=== PATIENT | female | born 1990 | race Two or more races ===

== ENCOUNTER 2024-11-09 23:26 | Emergency (ER) | payer MEDICAID, SELFPAY ==
--- NOTE | 2024-11-09 00:12 | DI.RAD_ITS ---
Exam(s) XR RIBS RT W PA LAT CHEST CLINICAL HISTORY: right rib pain after cough. COMPARISON: No exams were available for comparison TECHNIQUE:: PA and lateral views of the chest and four views of the right ribs were performed. FINDINGS: LUNGS:Clear. No pleural abnormality seen. HEART: Normal. MEDIASTINUM: Normal. BONES: No displaced rib fracture is seen. No bony destructive lesion is seen. OTHER FINDINGS: None. IMPRESSION: 1. Unremarkable radiographic appearance of the right ribs. 2. No acute pulmonary findings.
[2024-11-09 23:30] VITALS: BP 108/65; PULSE 97; RESP 18; TEMP 36.5; O2SAT 97
--- NOTE | 2024-11-09 23:48 | ED.GENADUL_ITS ---
Discharge Plan Disposition Patient Disposition: Home Condition: Good Discharge Details Clinical Impression: Rib pain on right side Primary Care Provider: Anabel Kim ED Provider: Yordy Aldana Home Meds and New Rx's Prescriptions: New benzonatate 100 mg capsule 100 mg PO TID Qty: 30 0RF No Action CELEXA 20 MG tablet 20 mg PO DAILY Qty: 30 ALBUTEROL SULFATE HFA 8.5 GM HFA.AER.AD 2 puff Inhalation Q6H PRN cyclobenzaprine (bulk) 5 GM crystals 10 gm Miscellaneous Q4H PRN Qty: 25 divalproex [Depakote ER] 250 MG tablet extended release 24 hr 250 mg PO DAILY Qty: 30 Discharge Instructions Instructions: Pleuritic Chest Pain ED Additional Instructions: At this time your chest x-ray shows no evidence of pneumonia, fractured rib or popped lung or tumor. I suspect there may be very small crack in the rib or a sprained muscle that is causing the pain. Please continue to use the Lidoderm patches, the Tylenol and Motrin as you have been. Please take the Tessalon Perles as prescribed to help with the cough. Is been sent to your pharmacy on file. You may use a rib binder to help with the pain as needed. As we discussed together an alternative option is a rib block to help with the pain. If this is something you are interested in, you may return for reevaluation and further discussion with anesthesia during the day. If you notice any worsening of your symptoms, or any new symptoms such as vomiting, diarrhea, fever, chills, shortness of breath, chest pain, numbness, weakness, or fainting , please return immediately to the emergency department for reevaluation. Please follow up with your primary care provider as soon as possible for reassessment and reevaluation. As always, it was a pleasure participating in your medical care today. Referrals: Anabel Kim MD [Primary Care Provider] - [facility] General Date/Time Provider Initiated Documentation: 11/09/24 23:28 . HPI Narrative: This is a 33-year-old female with a past medical history of endometriosis, occasional marijuana use, who presents today for right sided rib pain. Patient states that about 6 weeks ago she developed a cough runny nose and congestion, she was eventually diagnosed with bilateral otitis media and started on amoxicillin. She completed this course and then she transition to a sinus infection and was prescribed doxycycline and prednisone. She has also intermittently been taking Tessalon Perles. She states that her cough has persisted throughout this, and then yesterday while coughing she developed right sided rib pain present with coughing palpation and movement. She is comfortable at rest. This pain improves when she places something warm on her right lateral ribs. She did take Flexeril, Tylenol, Motrin, home oxycodone, and Lidoderm patches without significant improvement. She denies any hemoptysis, fever, chills, control, long trips surgeries or procedures. No other complaints at this time. Related Data Home Medications ?Medication ?Instructions ?Recorded ?Confirmed Celexa 20 mg PO DAILY ##30 07/18/12 11/09/24 Albuterol Sulfate Hfa 2 puff inhalation Q6H PRN 04/08/13 11/09/24 cyclobenzaprine (bulk) 10 gm miscellaneous Q4H PRN #25 04/22/13 11/09/24 tabs divalproex 250 mg tablet,extended 250 mg PO DAILY #30 tabs 05/20/13 11/09/24 release 24 hr (Depakote ER) benzonatate 100 mg capsule 100 mg PO TID #30 caps 11/10/24 Previous Rx's ?Medication ?Instructions ?Recorded benzonatate 100 mg capsule 100 mg PO TID #30 caps 11/10/24 Allergies Allergy/AdvReac Type Severity Reaction Status Date / Time sumatriptan (From Imitrex) Allergy Severe UNABLE TO Verified 11/09/24 23:36 BREATH, THROAT CLOSES UP sumatriptan succinate (From Allergy Severe UNABLE TO Verified 11/09/24 23:36 Imitrex) BREATH, THROAT CLOSES UP General Stated Complaint: Chest/Rib KIRTI: 4 Exam Narrative Exam Narrative: 1.Const: Well-nourished, Well-developed, appearing stated age 2.Eyes: PERRL, no conjunctival injection, and symmetrical lids. 3.ENT: Atraumatic external nose and ears. Moist MM. Neck: Symmetric, trachea midline, No thyromegaly. 4.CVS: +S1/S2, Peripheral pulses 2+ and equal in all extremities. Brisk capillary refill in all extremities. 5.RESP: Unlabored respiratory effort. Clear to auscultation bilaterally. No wheezes rales or rhonchi. Mild rib tenderness on the right upper ribs around rib 6 specifically. No subcutaneous crepitus, paradoxical movements, or bruising. No rash. 6.GI: Soft, Nontender/Nondistended, No hepatosplenomegaly. No guarding or rebound. 7.MSK: Normocephalic/Atraumatic, Extremities w/o deformity or ttp No cyanosis or clubbing, Normal movement of all extremities 8.Skin: Warm, Dry. No rashes or lesions. 9.Neuro: business development director II-XII grossly intact. Sensation grossly intact, no focal neurologic deficits. 10.Psych: (AAO) x3. Appropriate mood and affect Course Vital Signs Vital signs: Vital Signs Temperature 36.5 C 11/09/24 23:30 Pulse 97 H 11/09/24 23:30 Respiratory Rate 18 11/09/24 23:30 Blood Pressure 108/65 11/09/24 23:30 Pulse Oximetry 97 11/09/24 23:30 Temperature 36.5 C 11/09/24 23:30 Temperature Source Tympanic 11/09/24 23:30 Pulse 97 H 11/09/24 23:30 Respiratory Rate 18 11/09/24 23:30 Respiratory Effort Normal 11/09/24 23:38 Respiratory Depth Normal 11/09/24 23:38 Respiratory Pattern Normal 11/09/24 23:38 Blood Pressure 108/65 11/09/24 23:30 Pulse Oximetry 97 11/09/24 23:30 Pain Level 0 11/09/24 23:38 Medical Decision Making This is a 33-year-old female with a past medical history of endometriosis, occasional marijuana use, who presents today for right sided rib pain. Patient states that about 6 weeks ago she developed a cough runny nose and congestion, she was eventually diagnosed with bilateral otitis media and started on amoxicillin. She completed this course and then she transition to a sinus infection and was prescribed doxycycline and prednisone. She has also intermittently been taking Tessalon Perles. She states that her cough has persisted throughout this, and then yesterday while coughing she developed right sided rib pain present with coughing palpation and movement. She is comfortable at rest. This pain improves when she places something warm on her right lateral ribs. She did take Flexeril, Tylenol, Motrin, home oxycodone, and Lidoderm patches without significant improvement. She denies any hemoptysis, fever, chills, control, long trips surgeries or procedures. No other complaints at this time. Physical exam demonstrates Unlabored respiratory effort. Clear to auscultation bilaterally. No wheezes rales or rhonchi. Mild rib tenderness on the right upper ribs around rib 6 specifically. No subcutaneous crepitus, paradoxical movements, or bruising. No rash. Concern for intercostal muscle tear, less likely rib fracture, less likely pneumothorax. Symptoms appear inconsistent with pulmonary embolism with no tachycardia, hemoptysis, or control or concerning red flags. Will monitor closely get a chest x-ray/rib series and reassess. Symptoms inconsistent with ACS. 1:59 AM X-ray results negative for acute fracture pneumothorax or tumor. Patient does have improvement. Will send a prescription for Tessalon Perles for home. She was given Tessalon Perles here as well. Discussed with the patient options of potential anesthesia rib block during normal business hours, and she understands. If her pain persists or is severe she will return for further discussion of that. Otherwise patient demonstrates notable hemodynamic stability, no hypoxemia or tachypnea or hemoptysis or red flags to suggest PE. No evidence of dissection or ACS clinically. Patient will be discharged home. Discussed red flags for which to return. Recommend continued NSAID therapy, Lidoderm patches, rib binder and heat as needed. I have extensively reviewed the treatment plan and discharge instructions with the patient and their family. I have addressed all patient concerns at this time. The patient and family was made aware of what symptoms to monitor for that would warrant a return to the emergency department. Discussed the plan with the patient and family, they demonstrate verbal understanding and agreement with our assessment and plan at this time. The documentation in this chart was dictated using [employer] dictation software. Please excuse any dictation errors. FINDINGS: Bones/joints: No acute fracture. Lungs: No alveolar infiltrate. Pleural space: No pleural fluid collection. No pneumothorax. Heart/Mediastinum: Normal heart size. Soft tissues: Normal. IMPRESSION: 1. No acute fracture. 2. No pneumothorax or pleural fluid collection. Quality:SDOH Health Related Social Needs: No Data to Display PFSH All Active Problems (Updated 11/10/24 @ 01:56 by Yordy Aldana DO) Rib pain on right side (Acute) Social History Smoking/Tobacco Use Status: Never Smoking risk assessment performed?: Yes Alcohol Intake: current Alcohol Intake frequency: 0-2 drinks per day Drug use: Daily Substance use type: marijuana Housing: house Do you feel safe at home: Yes Do you feel safe in your relationship?: Yes
[2024-11-10] MEDS: Ketorolac 30 MG/ML VIAL IM (00:52)
[2024-11-10] MEDS: Lidocaine 5% Patch 2 PATCH TP (00:52)
[2024-11-10] MEDS: Benzonatate 100 MG CAP PO (00:52)
--- NOTE | 2024-11-10 01:34 | DI.VRAD_ITS ---
PROCEDURE INFORMATION: Exam: XR Right Ribs Exam date and time: 11/10/2024 12:00 AM Age: 33 years old Clinical indication: Right rib pain after cough TECHNIQUE: Imaging protocol: Radiologic exam of the right ribs. Views: 2 views. COMPARISON: No relevant prior studies available. FINDINGS: Bones/joints: No acute fracture. Lungs: No alveolar infiltrate. Pleural space: No pleural fluid collection. No pneumothorax. Heart/Mediastinum: Normal heart size. Soft tissues: Normal. IMPRESSION: 1. No acute fracture. 2. No pneumothorax or pleural fluid collection. PROCEDURE INFORMATION: Exam: XR Chest Exam date and time: 11/10/2024 12:00 AM Age: 33 years old Clinical indication: Right rib pain after cough TECHNIQUE: Imaging protocol: Radiologic exam of the chest. Views: 2 views. COMPARISON: No relevant prior studies available. FINDINGS: Lungs: No alveolar infiltrate. Pleural spaces: No pleural fluid collection. No pneumothorax. Heart/Mediastinum: Normal heart size. Bones/joints: Unremarkable for patient age. IMPRESSION: No active pulmonary disease. Dictated and Authenticated by: Ben Riddle MD. Ordering:CHERELLE Scales MD
--- OUTSIDE RECORDS SUMMARY | 2024-11-10 02:12 | XMS_ITS | Encounter Summary ---
Author Organization [facility] [place] [address] Care Team Providers Care Cashier Courtesy Booth Name Role Phone Unavailable Primary Care Provider Unavailabl e Encounter Details Date Type Department Care Team (Late st Contact Info) Description 10/19/2010 Orders Only Lab [facility] [id number] Cira Santillan MD [facility] [address] Social History Tobacco Use Types Packs/Day Years Used Date Smoking Tobacco: Never Assessed Sex and Gender Information Value Date Recorded Sex Assigned at Not on file Gender Identity Not on file Sexual Orientation Not on file documented as of this encounter Plan of Treatment Not on file documented as of this encounter Procedures Procedure Name Priority Date/Time Associated Diagnosis Comments URINALYSIS WITH REFLEX CULTURE Routine 10/19/2010 3:40 PM EST URINE CULTURE Routine 10/19/2010 3:37 PM EST documented in this encounter Results * (ABNORMAL) URINALYSIS WITH MICROSCOPIC (10/19/2010 3:40 PM EST) Glucose, Urine Dipstick Negative Negative mg/dL CERNER MILLENNIUM Protein, Urine Dipstick 30(A) Neg mg/dL CERNER MILLENNIUM Bilirubin, Urine Dipstick Negative Negative mg/dL CERNER MILLENNIUM Urobilinogen, Urine Dipstick Normal mg/dL CERNER MILLENNIUM pH, Urn (dipstick) 6.0 5.0 - 8.0 CERNER MILLENNIUM Blood, Urine Dipstick Large(A) Neg CERNER MILLENNIUM Ketone, Urine Dipstick 80(A) Neg mg/dL CERNER MILLENNIUM Nitrite, Urine Dipstick Negative CERNER MILLENNIUM Leukocytes, Urine Dipstick Trace(A) Neg CERNER MILLENNIUM Appearance, Urine Dipstick Hazy(A) Clear CERNER MILLENNIUM Specific [place] Urine Automated 1.026 1.002 - 1.030 CERNER MILLENNIUM Color, Urine Dipstick Yellow Yellow CERNER MILLENNIUM RBC, Urine 11(H) 0 - 4 /HPF CERNER MILLENNIUM WBC, Urine 2 0 - 5 /HPF CERNER MILLENNIUM Bacteria, Urine Many /HPF CERNER MILLENNIUM Squamous Epithelial Cells, Urine 4 <=4 /HPF CERNER MILLENNIUM Hyaline Casts, Urine 10(H) 0 - 2 /LPF CERNER MILLENNIUM Urine specimen (specimen) 10/19/2010 3:40 PM EST 10/19/2010 3:40 PM EST Cira Santillan MD URINE ORDERABLE S CERNER MILLENNIUM * URINE CULTURE (10/19/2010 3:37 PM EST) Urine Culture ? Patient Name: YE PEREZ ? Ordered By: Michael SANTILLAN ? MR#: [id number] ?LOC: ??5B ? /Sex: ??1990 (19 years), ? Female ? PROCEDURE: Urine Culture ?SOURCE: T CC ? COLLECTED: 10/19/2010 15:37 ? STARTED: 10/19/2010 15:40 ? FINAL REPORT ? Final Report ? Verified:2009 14:56 ? 1,000-9,000 cfu/ml Gram Positive organisms , probable contaminant ? ELE ASENCIOKAILAIUM Urine specimen obtained by clean catch procedure (specimen) 10/19/2010 3:37 PM EST 10/19/2010 3:37 PM EST Cira Santillan MD MICROBIOLOGY - GENERAL ORDERABLES ELE GUTIERREZ documented in this encounter Visit Diagnoses Not on filedocumented in this encounter
--- OUTSIDE RECORDS SUMMARY | 2024-11-10 02:12 | XMS_ITS | Encounter Summary ---
Author Organization [place] [address] Care Team Providers Care Director Stage Name Role Phone Ariana Dill APRN Primary Care Provider + Reason for Referral * Consultation (Routine) - Denied Specialty Diagnoses / Procedures Referred By Zackary corea Referred To Contact Rheumatology Diagnoses Positive FOX (antinuclear antibody) Ariana Dill APRN [address] [place] [phone] [facility] [address] [place] [phone] Referral ID Status Reason Start Date Expiration Date V isits Requested Visits Authorized [id number] Denied Consult, Test & Treat PCP Updated and/or Approved 01/04/2024 01/02/2025 6 0 Encounter Details Date Type Department Care Team (Latest Contact Info) Description 01/12/2024 Transcribe Orders eDH Incoming Referrals [phone] Ariana Dill APRN [address] [place] [phone] Positive FOX (antinuclear antibody) Social History Tobacco Use Types Packs/Day Years Used Date Smoking Tobacco: Never Smokeless Tobacco: Never Alcohol Use Standard Drinks/Week Comments Not Asked 0 (1 standard drink = 0.6 oz pur e alcohol) Sex and Gender Information Value Date Recorded Sex Assigned at Not on file Gender Identity Not on file Sexual Orientation Not on file documented as of this encounter Plan of Treatment Scheduled Referrals Name Type Priority Associated Diagnoses Order Schedule Referral to Rheumatology Outpatient Referral Routine Positive FOX (antinuclear antibody) Ordered: 01/12/2024 documented as of this encounter Visit Diagnoses Diagnosis Positive FOX (antinuclear antibody) Other and unspecified nonspecific immunological findings documented in this encounter Care Teams Director Stage Relationship Specialty Start Date End Date Ariana Dill APRN [address] [place] [phone] PCP - General Family Medicine 01/12/24 documented as of this encounter
--- OUTSIDE RECORDS SUMMARY | 2024-11-10 02:12 | XMS_ITS | Encounter Summary ---
Author Organization [facility] Address [facility] [place] [address] Care Team Providers Care Heater Engineer Helper Name Role Phone AmanasadarioAriana EVGENY Primary Care Provider + Encounter Details Date Type Department Care Team (Late st Contact Info) Description 05/20/2010 Orders Only Urology at [facility] [place] [address] Cira Santillan MD [facility] [place] [address] Social History Tobacco Use Types Packs/Day Years Used Date Smoking Tobacco: Never Assessed Sex and Gender Information Value Date Recorded Sex Assigned at Not on file Gender Identity Not on file Sexual Orientation Not on file documented as of this encounter Plan of Treatment Not on file documented as of this encounter Procedures Procedure Name Priority Date/Time Associated Diagnosis Comments SURGICAL PATHOLOGY REPORT Routine 05/20/2010 5:15 PM EDT documented in this encounter Results * Surgical Pathology Report (05/20/2010 5:15 PM EDT) Surgical Pathology Report [id number] ? Location: [facility] The signing pathologist has (i) examined the relevant preparation(s) for the specimen(s) and (ii) rendered or confirmed the diagnosis(es). . ?Pathology Surgical Pathology Final Report Clinical Information Specimen Submitted: A - Periurethral cyst; Periurethra Clinical History: Not provided Clinical Diagnosis: Periurethral cyst Gross Description Labeled/Fixative: ? Periurethral cyst, fresh. Qty/Size/Weight: ?Single, 2.3 x 1.3 x 1.0 cm. Tissue Description: ?? Previously opened, cystic portion of brown, firm, ?membranous soft tissue. ??Cyst lining is trabeculated, ?and the wall has 0.1-cm average thickness. Sections/Processi ng: ??(R1) ??aje/SHB Microscopic Description Slides reviewed, microscopic description not recorded. Diagnosis Periurethral cyst, excision: - Benign cyst lined by columnar-mucinous -type epithelium with focal squamous metaplasia. - Clinical and radiological correlation is required. CR-0 05/24/10 SEA CAPTAIN 05/24/10 Verified by: ? José Miguel GODOY, Mary ?Pathologist ?(Electronic Signature) The attending pathologist whose signature appears on this report has reviewed all diagnostic slides and has edited the gross and/or microscopic portion of the report in rendering the final pathologic diagnosis. ELE GUTIERREZ 05/20/2010 5:15 PM EDT Cira Santillan MD PATHOLOGY/CYTOL OGY ORDERABLES ELE GUTIERREZ documented in this encounter Visit Diagnoses Not on filedocumented in this encounter Care Teams Heater Engineer Helper Relationship Specialty Start Date End Date Ariana Dill, EVGENY [address] [facility] [place] [phone] PCP - General Family Medicine 01/12/24 documented as of this encounter
--- OUTSIDE RECORDS SUMMARY | 2024-11-10 02:12 | XMS_ITS | Encounter Summary ---
Author Organization [facility] Address [facility] [place] [address] Care Team Providers Care Performance Test Architect Name Role Phone Unavailable Primary Care Provider Unavailabl e Encounter Details Date Type Department Care Team (Late st Contact Info) Description 10/31/2017 4:00 PM EST Office Visit Urology at [facility] [place] [address] Cira Santillan MD [facility] [place] [address] Pelvic floor dysfunction Social History Tobacco Use Types Packs/Day Years Used Date Smoking Tobacco: Never Smokeless Tobacco: Never Alcohol Use Standard Drinks/Week Comments Not Asked 0 (1 standard drink = 0.6 oz pur e alcohol) Sex and Gender Information Value Date Recorded Sex Assigned at Not on file Gender Identity Not on file Sexual Orientation Not on file documented as of this encounter Patient Instructions * Patient Instructions* Cira Santillan MD - 10/31/2017 4:00 PM EST The patient was advised that she has an overactive bladder (OAB) which is a symptom complex of frequency, urgency +/- urgency incontinence. She was advised that she may choose not to treat this but that if she is bothered by her symptoms there are a variety of treatments. Many patients may require more than one treatment. She may decide at any time to stop being treated. If she makes a decision not to treat her OAB her health will not be impacted although the OAB may impact her quality of life. I instructed her to do behavioural changes including: Drink 60 - 64 oz of fluid daily - at least 1/2 of this should be water. Stay away from coffee, tea,jasmyn, sports drinks and spicy or acidy foods. Timed void - void at least every 2 hr during the day, even if you don't need to go Double void - void - then sit for an additional 30 - 60 seconds and see if you can void some more. Once you are doing these behavioural therapies if you are not sufficiently improved then we should consider putting your on a drug for your bladder, this would most likely be an anticholinergic. You can not take an anticholinergic if you have narrow angle glaucoma, impaired emptying of your stomachor incomplete bladder emptying. The main side effects of anticholinergics are dry mouth and constipation. An alternative drug for OAB is a beta 3 agonist (mirabegron). This drug can increase blood pressureslightly and can not be given to people with high blood pressure that is not being treated. Go to PT for your pelvic floor dysfunction. If the PT does not do a pelvic exam with mapping of your trigger points call me and I will arrange for you to be seen here. Call me after you have seen PT if you want to start of vaginal valium suppositories. Return to clinic - 3 months. documented in this encounter Progress Notes * Cira Santillan MD - 10/31/2017 4:00 PM EST Urinary Incontinence New Patient Workup - Female Reason for Visit: This is a female 26 y.o. seen at the request of Sandra Gordon MD ([place]) withpelvic floor dysfunction for many years. Notes from No primary care provider on file. on file have been received and reviewed. I last saw her for follow-up after removal of a pericurethral cyst on 05/20/10. An MRI prior to thatshowed a large cyst and 1 - 2 smaller cysts. The smaller cysts were not found at the time of the OR. She had her doan out 3 days afterwards. Her path showed: ?? ---Pathologic Diagnosis--- Periurethral cyst, excision: - Benign cyst lined by zhxgxlxw-fpnuiimz-phpi epithelium with focal squamous metaplasia. I then saw her Sep and again April 2011. I last saw her in 2011. ? She did see PT and did well for a period of time. She had a baby in Nov 2015. She had major tailbone issues from the 7th month onward. He was a 9lb 2oz baby, 22 inches long. She had a 3rd degree laceration. Nothing has been the same since. She has increasing incontinence. She has issues with intercourse. She has pain with insertion. She saw Virginia Soliz at [facility]. She was told that she emptied well but then leaked. She is now having incontinence. She describes urge and then the next thing that occurs is that she is soaking wet. She was also told that she may have endometriosis - she was told to go to PT first, in [place]. ?? U/A: + for ketones. ? HPI Features of incontinence: The patient generally does not leak with the following stress maneuvers: coughing , laughing, sneezing, lifting, straining, walking, getting out of a chair and bending over. The patient has features of urge including: leakage on the way to the toilet, when full and around water. She does not leak without warning and in cold weather. Pad use: Type: none - was using pantiliners Frequency: at times she may hold for all day, doesn't do timed voiding. Nocturia: x 1. Nocturnal enuresis: No. Usual Fluid Intake: Type of Fluid Quantity Consumed Unit Coffee 1 cups per day Tea 0 cups per day Coke 1 cans per week Juice 0 glasses per day Water/seltzer 5 large glasses per day Last UTI: None diagnosed but feels she always has a UTI. 3 weeks ago she had symptoms but was not treated. She had a IUD put in in May 2016 She has had 4 BV infections since then. Bowel Problems: Normal - has a BM q 3 day. 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 Review of Systems: General Health: good. P D DRIVER - No headaches or loss of consciousness. RS - No cough or breathing difficulties. CVS No chest pain or PRIETO. No claudication. GI - Normal appetite and bowels. MUSCULOSKELETAL: No joint or muscle aches or dysfunction. Physical Exam Pleasant woman in no acute distress. Oriented to Person, place and time. Healthy appearance. Color normal. No significant skin lesions. Abdomen: The abdomen is soft, non-tender, without masses or organomegaly. There is no hepatosplenomegaly. The bladder is not palpable. There is no CV angle tenderness. Pelvic: The external genitalia are normal with normal hair distribution and no lesions. The meatus is in a normal location with a normal configuration. There is minimal mobility of the bladder neck. The urethra is not tender. There are no urethral masses. The patient does not leak in the supine position with valsalva and with coughing. Exam is limited by her discomfort with insertion of the examinng finger. She is very tense and tender in the post aspect. Rectal: not done PVR: 0 - 22cc measured in the supine position with the bladder scanner shortly after the patient had voided. U/A: negative for RBC, WBC and Nitrates. Impression: Pt with pelvic floor dysfunction and pain She may need vaginal valium but I would not start this until she has an assessment by PT OAB in a patient who voids infrequently. Plan: PT for pelvic floor dysfunction behavioural changes for OAB See Pt instructions I will see back in 3 months. documented in this encounter Plan of Treatment Not on file documented as of this encounter Visit Diagnoses Diagnosis Pelvic floor dysfunction Pelvic muscle wasting documented in this encounter
--- OUTSIDE RECORDS SUMMARY | 2024-11-10 02:12 | XMS_ITS | Encounter Summary ---
[place] [address] Care Team Providers Care Commercial Sewing Instructor Name Role Phone Ariana Dill APRN Primary Care Provider + Reason for Referral * Consultation (Routine) - Denied Specialty Diagnoses / Procedures Referred By Zackary corea Referred To Contact Rheumatology Diagnoses Polyarthralgia SECOND OPINION, [facility] Ariana Dill, EVGENY [address] [place] [address] [facility] [address] [place] [id number] Referral ID Status Reason Start Date Expiration Date V isits Requested Visits Authorized [id number] Denied Consult, Test & Treat PCP Updated and/or Approved 07/18/2024 07/18/2025 99 0 Encounter Details Date Type Department Care Team (Late st Contact Info) Description 08/14/2024 Transcribe Orders eDH Incoming Referrals [phone] Ariana Dill, SUPERVISOR FILM PROCESSING [address] [place] [address] Polyarthralgia Social History Tobacco Use Types Packs/Day Years [...] Schedule Referral to Rheumatology Outpatient Referral Routine Polyarthralgia Ordered: 08/14/2024 documented as of this encounter Visit Diagnoses Diagnosis Polyarthralgia Pain in joint, multiple sites documented in this encounter Care Teams Commercial Sewing Instructor Relationship Specialty Start Date End Date Ariana Dill APRN [address] [place] [phone] PCP - General Family Medicine 01/12/24 documented as of this encounter
--- OUTSIDE RECORDS SUMMARY | 2024-11-10 02:12 | XMS_ITS | Encounter Summary ---
Author Organization [facility] [place] [address] Care Team Providers Care Stull Installer Name Role Phone Ariana Dill APRN Primary Care Provider + Encounter Details Date Type Department Care Team (Late st Contact Info) Description 01/16/2024 Telephone Rheumatology at [facility] [place] [phone] Greer Kyle Social History Tobacco Use Types Packs/Day Years Used Date Smoking Tobacco: Never Smokeless Tobacco: Never Alcohol Use Standard Drinks/Week Comments Not Asked 0 (1 standard drink = 0.6 oz pur e alcohol) Sex and Gender Information Value Date Recorded Sex Assigned at Not on file Gender Identity Not on file Sexual Orientation Not on file documented as of this encounter Miscellaneous Notes * Telephone Encounter - Greer Kyle - 01/16/2024 10:21 AM EDT Copied from [facility] #[id number]. Topic: Specialty Dept CRMs - Generic Call >> Jan 16, 2024 9:19 AM Jessica Valle wrote: Specialist: unknown Relationship (if other than patient-full name): Rani PCPs office Reason for Call: Rani is calling from the patients PCPS office because they got a letter of denial for this patient and they would like it re reviewed for urgency. Please call to advise. documented in this encounter Plan of Treatment Not on file documented as of this encounter Visit Diagnoses Not on filedocumented in this encounter Care Teams Stull Installer Relationship Specialty Start Date End Date Ariana Dill APRN [address] [place] [phone] PCP - General Family Medicine 01/12/24 documented as of this encounter
--- OUTSIDE RECORDS SUMMARY | 2024-11-10 02:12 | XMS_ITS | Encounter Summary ---
[place] [address] Care Team Providers Care C Wpf Developer Name Role Phone Unavailable Primary Care Provider Unavailabl e Encounter Details Date Type Department Care Team (Late st Contact Info) Description 11/26/2012 Orders Only Obstetrics [place] [address] Christelle Sams RN Social History Tobacco Use Types Packs/Day Years [...]
--- OUTSIDE RECORDS SUMMARY | 2024-11-10 02:12 | XMS_ITS | Encounter Summary ---
Author Organization [facility] Address [facility] [place] [address] Care Team Providers Care Pi/Senior Research Associate Name Role Phone Unavailable Primary Care Provider Unavailabl e Encounter Details Date Type Department Care Team (Late st Contact Info) Description 11/22/2012 1:45 PM EST Follow-Up Physical Therapy at [facility] [address] [place] [address] Nora Garcia, PT [facility] [address] [facility] [place] [address] Anabel Kim MD [facility] [address] [place] [address] Spasm of muscle (Primary Dx) Discharge Disposition: Home Social History Tobacco Use Types Packs/Day Years Used Date Smoking Tobacco: Never Smokeless Tobacco: Never Alcohol Use Standard Drinks/Week Comments Not Asked 0 (1 standard drink = 0.6 oz pur e alcohol) Sex and Gender Information Value Date Recorded Sex Assigned at Not on file Gender Identity Not on file Sexual Orientation Not on file documented as of this encounter Progress Notes * Nora Garcia, PT - 11/22/2012 1:36 PM EST Physical therapy progress Note: Time code time: 45 min Total treatment time: 45 min S: Unable to have intercourse. To see Dr. Lui on Mon. O: SEMG readings with internal electrode: Position of Exercise Rest Quick Flick Long Hold Supine 20mv able to decrease to 10mv after therapy 25mv 25 mv for 2 sec Sitting mv mv mv Standing Therex- Performed pelvic floor strengthening in supine Manual therapy: pelvic floor vaginally attempted and unable to tolerate colonic massage MFR to pelvic floor externally with unilateral hip flexion MFR for R ant ilium and L elevated ilium. + LLD L >R A: The patient has made regression with pelvic pain. Pt unable to tolerate int manual work. We worked on her pelvic misalignment. The patient continues to have increased muscle tension at the lev animuscles. Patient has good use of kegel with decreased compensation. Will cont to focus on relaxation techniques and manual therapy. P: cont with physical therapy for MFR and manual therapy documented in this encounter Plan of Treatment Not on file documented as of this encounter Visit Diagnoses Diagnosis Spasm of muscle- Primary documented in this encounter
--- OUTSIDE RECORDS SUMMARY | 2024-11-10 02:12 | XMS_ITS | Clinical Summary ---
Author Organization [facility] Address [facility] [place] [address] Care Team Providers Care Farm Equipment Assembler Name Role Phone Ariana Dill APRN Primary Care Provider + Allergies Active Allergy Reactions Criticality Noted Date Comments Sumatriptan Anaphylaxis High Medications Medication Sig Dispensed Refills Start Date End Date Status acetaminophen-codei ne (TYLENOL #3) 300-30 mg per tablet Take 1 tablet by mouth every 6 hours as needed. Active lidocaine (XYLOCAINE) 5 % ointment Apply topically daily. Apply topically liberally qhs and prn 50 g PRN 11/26/2012 Active nortriptyline (PAMELOR) 10 mg capsule One po qd, increase to 2 po as directed and as tolerated 60 capsule 6 11/26/2012 Active nortriptyline (PAMELOR) 10 mg/5 mL solution Take by mouth. Start with 1/8 tsp, then slowly increase as tolerated up to 1 tsp. Then continue to increase with capsules, up to dose of 75 mg. 480 mL 4 11/26/2012 Active levonorgestrel-ethi nyl estradiol (NORDETTE) 0.15-30 mg-mcg per tablet Take 1 tablet by mouth daily. Active Active Problems Problem Noted Date Diagnosed Date Pelvic floor dysfunction 08/17/2012 UTI (lower urinary tract infection) 05/18/2011 Periurethral cyst 05/17/2011 Encounters Date Type Department Care Team Description 09/10/2024 Transcribe Orders eDH Incoming Referrals [phone] Ariana Dill APRN Pelvic floor dysfunction 08/14/2024 Transcribe Orders eDH Incoming Referrals [phone] Ariana Dill APRN Polyarthralgia from Last 3 Months Social History Tobacco Use Types Packs/Day Years Used Date Smoking Tobacco: Never Smokeless Tobacco: Never Alcohol Use Standard Drinks/Week Comments Not Asked 0 (1 standard drink = 0.6 oz pur e alcohol) Sex and Gender Information Value Date Recorded Sex Assigned at Not on file Gender Identity Not on file Sexual Orientation Not on file Last Filed Vital Signs Vital Sign Reading Time Taken Comments Blood Pressure 112/60 11/26/2012 11:33 AM EST Pulse 79 10/02/2012 4:43 PM EST Temperature - - Respiratory Rate 16 08/17/2012 9:28 AM EDT Oxygen Saturation - - Inhaled Oxygen Concentration - - Weight 49.9 kg (110 lb) 11/26/2012 11:33 AM EST Height 162.6 cm (5' 4) 11/26/2012 11:33 AM EST Body Mass Index 18.88 11/26/2012 11:33 AM EST Plan of Treatment Health Maintenance Due Date Last Done Comments HIV screen 2007 Hepatitis C Screening 2007 Hepatitis B vaccine (0-59 yrs) (1) 2008 Tetanus/Diphtheria/Pertussis Vaccines (1 - Tdap) 11/20 HPV test 2019 PAP Smear 2019 Covid-19 Vaccine (1 - 2023- season) 2024 Influenza (Flu) vaccine (1 o f 1 - Influenza standard series) 06/23/2024 Care Teams Farm Equipment Assembler Relationship Specialty Start Date End Date Ariana Dill APRN [address] [place] [phone] PCP - General Family Medicine 01/12/24
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
--- OUTSIDE RECORDS SUMMARY | 2024-11-10 02:12 | XMS_ITS | Encounter Summary ---
Author Organization [facility] [place] [address] Care Team Providers Care Technical Services Consultant Name Role Phone Unavailable Primary Care Provider Unavailabl e Reason for Visit * Reason Comments Follow-up pericurethral cyst Encounter Details Date Type Department Care Team (Late st Contact Info) Description 05/18/2011 10:45 AM EDT [place] [phone] Cira Santillan MD [facility] [place] [address] UTI (lower urinary tract infection) Discharge Disposition: Home Social History Tobacco Use Types Packs/Day Years Used Date Smoking Tobacco: Never Smokeless Tobacco: Never Alcohol Use Standard Drinks/Week Comments Not Asked 0 (1 standard drink = 0.6 oz pur e alcohol) Sex and Gender Information Value Date Recorded Sex Assigned at Not on file Gender Identity Not on file Sexual Orientation Not on file documented as of this encounter Last Filed Vital Signs Vital Sign Reading Time Taken Comments Blood Pressure 106/46 05/18/2011 10:50 AM EDT Pulse 50 05/18/2011 10:50 AM EDT Temperature - - Respiratory Rate - - Oxygen Saturation - - Inhaled Oxygen Concentration - - Weight 49.9 kg (110 lb) 05/18/2011 10:50 AM EDT Height 162.6 cm (5' 4) 05/18/2011 10:50 AM EDT Body Mass Index 18.88 05/18/2011 10:50 AM EDT documented in this encounter Patient Instructions * Patient Instructions* Cira Santillan MD - 05/18/2011 11:09 AM EDT We will culture your urine today. Please get your urine cultured prior to taking cipro. I will see you back as necessary. documented in this encounter Progress Notes * Cira Santillan MD - 05/18/2011 10:54 AM EDT Reason for Visit: This is a woman aged 20 years who is here for follow-up after removal of a pericurethral cyst on 05/20/10 She had her doan out 3 days afterwards. I last saw her Sep. She has done well since then but she at times has a sharp pain when she voids. She notices this when she is very full, especially first thing in the am when she is very full. The pain is a 7 -8 - andoccurs just before her stream starts. It dissapates as she voids. When I saw her in May 2010 I suggested that she stop daily macrobid and I asked her to get culturedif and when she had symptoms. She had symptoms of a UTI 5 - 6 times since Sep. She put her self on pyridum 2 days last week and it went ago. She has a script for pyridium which she uses prn. She also has cipro which she prefers not to use. She had at least 1 culture done when symptomatic that did not show infection. She feels well. She has no vaginal bleeding and no vaginal discharge. She has no dyspaurenia. She is working for the [employer] for the summer. 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 Her path showed: ---Pathologic Diagnosis--- Periurethral cyst, excision: - Benign cyst lined by ipsgsftc-qsdgnghw-sgff epithelium with focal squamous metaplasia. Objective: Well looking, no acute distress. Vitals are recorded on the flow sheet, normal range. Abdomen: The abdomen is flat, soft, nontender, with no masses and no organomegaly. There is no CV angle tenderness. : The external genitalia are normal. The meatus is in a normal location and is of a normal configuration. There is no mobility of the bladder neck. The patient does not leak in the supine position.There is no pelvic floor prolapse with a tight pelvic floor. The vaginal incision is well healed. There are no vaginal or periurethral masses. She is able to contract and relax her pelvic floor on com sara. U/A: sent for C&S Impression: pt with a history of a periurethral cyst . She has occasional pain with voiding which I do not know why she has this. She has a question of recurrent UTI but there is minimal culture data. Plan: I will see her back prn. I have asked her to get her urine anytime she is symptomatic. documented in this encounter Plan of Treatment Not on file documented as of this encounter Visit Diagnoses Diagnosis UTI (lower urinary tract infection) Urinary tract infection, site not specified documented in this encounter
--- OUTSIDE RECORDS SUMMARY | 2024-11-10 02:12 | XMS_ITS | Encounter Summary ---
Author Organization [facility] Address [facility] Ina [address]ame[address] [place] [id number] Care Team Providers Care Medical Clinic Manager Name Role Phone Unavailable Primary Care Provider Unavailabl e Reason for Referral * Consultation (Routine) - Closed Specialty Diagnoses / Procedures Referred By Zackary corea Referred To Contact Obstetrics and Gynecology Diagnoses vulvar pain and dyspaurenia at the vulvar clinic Procedures Eval & Treat Cira Santillan MD [facility] [place] [address] Razia Elena MD [facility] OBSTETR[facility] & [place] [address] Referral ID Status Reason Start Date Expiration Date V isits Requested Visits Authorized [id number] Closed Consult, Test & Treat 10/02/2012 03/31/2013 1 1 Reason for Visit * Reason Comments Follow-up Encounter Details Date Type Department Care Team (Late st Contact Info) Description 10/02/2012 4:45 PM EST [place] [address] CLINIC, DR AN Santillan, Cira Newberry MD [facility] [place] [address] Other specified disorders of urethra (Primary Dx); Periurethral cyst Discharge Disposition: Home Social History Tobacco Use [...] Sign Reading Time Taken Comments Blood Pressure 123/73 10/02/2012 4:43 PM EST Pulse 79 10/02/2012 4:43 PM EST Temperature - - Respiratory Rate - - Oxygen Saturation - - Inhaled Oxygen Concentration - - Weight 52.2 kg (115 lb) 10/02/2012 4:43 PM EST Height 162.6 cm (5' 4) 10/02/2012 4:43 PM EST Body Mass Index 19.74 10/02/2012 4:43 PM EST documented in this encounter Progress Notes * Cira Santillan MD - 10/02/2012 4:43 PM EST Reason for Visit: This is a woman aged 21 years who is here for follow-up after removal of a pericurethral cyst on 05/20/10. An MRI prior to that showed a large cyst and 1 - 2 smaller cysts. The smaller cysts were not found at the time of the OR. She had her doan out 3 days afterwards. Her path showed: ---Pathologic Diagnosis--- Periurethral cyst, excision: - Benign cyst lined by cbycdqad-izpakoil-qpqy epithelium with focal squamous metaplasia. I then saw her Sep and again April 2011. She has had increasing pain with voiding The pain is a 7 -8 - and occurs when she voids and now it occurs at other times. She is concerned that this is where her periurethral cyst was. She tried ibuprofen 600 mg Tid for 1-2 days and it didn't help either her back pain or her voiding discomfort. She also took tylenol/codeine which she takes for her migranes. This helped her pain. She is here today for an MRI. I also sent her to PT as she has a lot of pelvic muscle tightness. Margaritaen also noted ketone in her urine and wondered with her frequency if she has diabetes. MRI - this is reviewed. There is no periurethral pathology noted. Objective: Well looking, no acute distress. Vitals are recorded on the flow sheet, normal range. Not examined. U/A: + for ketones. Impression: pt with a history of a periurethral cyst . She has more pain in her urethra both with voiding and at other times. She has a very dysfunctional pelvic floor. Plan: Continue PT for pelvic floor therapy. Refer to vulvar clinic for dyspaurnia and vulvar pain. RTC 6 months. documented in this encounter Plan of Treatment Scheduled Referrals Name Type Priority Associated Diagnoses Orde r Schedule Referral to Ob-Drafting Clerk Outpatient Referral Routine Other specified disorders of urethra Ordered: 10/02/2012 documented as of this encounter Visit Diagnoses Diagnosis Other specified disorders of urethra- Primary Periurethral cyst Other specified disorders of urethra documented in this encounter
--- OUTSIDE RECORDS SUMMARY | 2024-11-10 02:12 | XMS_ITS | Encounter Summary ---
Author Organization [facility] Address [facility] [place] [address] Care Team Providers Care Dry Cell Assembly Machine Tender Name Role Phone Unavailable Primary Care Provider Unavailabl e Encounter Details Date Type Department Care Team (Late st Contact Info) Description 11/28/2017 Telephone Urology at [facility] [place] [id number] Cira Santillan MD [facility] [place] [address] Social History Tobacco Use Types Packs/Day Years [...] encounter Miscellaneous Notes * Telephone Encounter - Ángela Verduzco - 11/28/2017 3:52 PM EST Pt called to follow up about a referral to physical therapy. She also has a question about medication, and would like to be contacted through the [facility] portal. She sent you a message about this earlier. Thanks. documented in this encounter Plan of Treatment Not on file documented as of this encounter Visit Diagnoses Not on filedocumented in this encounter
--- OUTSIDE RECORDS SUMMARY | 2024-11-10 02:12 | XMS_ITS | Encounter Summary ---
Author Organization [facility] [place] [address] Care Team Providers Care Sanitary Engineering Teacher Name Role Phone Unavailable Primary Care Provider Unavailabl e Reason for Referral * Physical Therapy (Routine) - Closed Specialty Diagnoses / Procedures Referred By Zackary corea Referred To Contact Physical Therapy Diagnoses Pelvic floor dysfunction Cira Santillan MD [facility] [place] [address] [facility] [place] [address] Referral ID Status Reason Start Date Expiration Date V isits Requested Visits Authorized [id number] Closed Evaluate and Treat 08/17/2012 02/13/2013 1 1 Encounter Details Date Type Department Care Team (Late st Contact Info) Description 08/17/2012 9:30 AM EDT [place] [address] Cira Santillan MD [facility] [place] [address] Periurethral cyst (Primary Dx); Pelvic floor dysfunction Discharge Disposition: Home Social History Tobacco Use [...] Sign Reading Time Taken Comments Blood Pressure 122/66 08/17/2012 9:28 AM EDT Pulse 90 08/17/2012 9:28 AM EDT Temperature - - Respiratory Rate 16 08/17/2012 9:28 AM EDT Oxygen Saturation - - Inhaled Oxygen Concentration - - Weight 50.8 kg (112 lb) 08/17/2012 9:28 AM EDT Height 162.6 cm (5' 4) 08/17/2012 9:28 AM EDT Body Mass Index 19.22 08/17/2012 9:28 AM EDT documented in this encounter Patient Instructions * Patient Instructions* Cira Santillan MD - 08/17/2012 10:05 AM EDT Drink 50 - 64 oz of mostly water per day. Go to PT here. Talk to the therapist here about seeing someone closer to home if you like. We will get an MRI of your pelvis and I will see you back following that. For your back pain with your period try taking 800 mg of motrin- 3 times per day - prior to your period. If this doesn't help then you should see a broodmare barn groom. documented in this encounter Progress Notes * Cira Santillan MD - 08/17/2012 9:58 AM EDT Reason for Visit: This is [...] cyst, excision: - Benign cyst lined by vroozltf-vnizdawa-igzn epithelium with focal squamous metaplasia. I then saw her Sep and again April 2011. She has not had any further bladder infections. She does have a lot of aching in her back - prior to her period and during her period. She continues to have sharp pain at times when she voids. She has not noted that there is a relationship to her period. The pain is there when she is full and when she has emptied. She feels that shehas to concentrate to void. The pain is a 7 -8 - [...] her migranes. This helped her pain. She tried vicoden and it made her nauseaus. She has seen Dr. Kim her PCP. She was seen by Dr. Camacho at [facility]. When I saw her in May 2010 I suggested that she stop daily macrobid and I asked her to get cultured if and when she had symptoms. She has had some abnormality of her period recently with bleeding inbetween her periods. She is on OCP. She has some dyspaurenia,both during and following. She has graduated and is working for the [employer]. She presently drinks mostly water, some seltzer, coffee a few times per week. Objective: Well looking, no acute distress. Vitals [...] and relax her pelvic floor on com sara but she is very tight and she is very uncomfortable with the exam. U/A: + for ketones. PVR: minimal with the scanner Impression: pt with a history of a periurethral cyst . She has more pain in her urethra both with voiding and at other times. She has a very dysfunctional pelvic floor. Plan: I will see her back following an MR to asses for further cysts. Will refer to PT for pelvic floor therapy. documented in this encounter Plan of Treatment Scheduled Referrals Name Type Priority Associated Diagnoses Orde r Schedule Referral to Physical Therapy Outpatient Referral Routine Pelvic Floor Dysfunction Ordered: 08/17/2012 documented as of this encounter Procedures Procedure Name Priority Date/Time Associated Diagnosis Comments URINALYSIS WITH REFLEX CULTURE Routine 08/17/2012 11:03 AM EDT Periurethral cyst documented in this encounter Results * (ABNORMAL) Urinalysis with microscopic (08/17/2012 11:03 AM EDT) Glucose, Urine Dipstick Negative Negative mg/dL [facility] MILLENNIUM Protein, Urine Dipstick 30(A) Neg mg/dL [facility]ER MILLENNIUM Bilirubin, Urine Dipstick Negative Negative mg/dL CERNER MILLENNIUM Urobilinogen, Urine Dipstick 2.0(A) Normal mg/dL CERNER MILLENNIUM pH, Urn (dipstick) 6.0 5.0 - 8.0 CERNER MILLENNIUM Blood, Urine Dipstick Trace(A) Neg CERNER MILLENNIUM Ketone, Urine Dipstick 80(A) Neg mg/dL CERNER MILLENNIUM Nitrite, Urine Dipstick Negative CERNER MILLENNIUM Leukocytes, Urine Dipstick Moderate mcL CERNER MILLENNIUM Appearance, Urine Dipstick Hazy(A) Clear CERNER MILLENNIUM Specific [place] Urine Automated 1.026 1.002 - 1.030 CERNER MILLENNIUM Color, Urine Dipstick Yellow Yellow CERNER MILLENNIUM RBC, Urine 7(H) 0 - 4 /HPF CERNER MILLENNIUM WBC, Urine 4 0 - 5 /HPF CERNER MILLENNIUM Bacteria, Urine Rare(A) None /HPF CERNER MILLENNIUM Squamous Epithelial Cells, Urine 11(H) <=4 /HPF CERNER MILLENNIUM Urine specimen (specimen) 08/17/2012 11:03 AM EDT 08/17/2012 11:54 AM EDT Narrative Resulting Agency Comment Spec In Lab Cira Santillan MD URINE ORDERABLE S [facility] documented in this encounter Visit Diagnoses Diagnosis Periurethral cyst- Primary Other specified disorders of urethra Pelvic floor dysfunction Pelvic muscle wasting documented in this encounter
--- OUTSIDE RECORDS SUMMARY | 2024-11-10 02:12 | XMS_ITS | Encounter Summary ---
Author Organization [facility] [place] [address] Care Team Providers Care Marketing Traffic Coordinator Name Role Phone Unavailable Primary Care Provider Unavailabl e Encounter Details Date Type Department Care Team (Latest Contact Info) Description 10/02/2012 1:51 PM EST - 10/02/2012 11:59 PM EST Hospital Encounter MRI at [facility] [place] [address] Periurethral cyst Social History Tobacco Use Types Packs/Day Years Used Date Smoking Tobacco: Never Smokeless Tobacco: Never Alcohol Use Standard Drinks/Week Comments Not Asked 0 (1 standard drink = 0.6 oz pur e alcohol) Sex and Gender Information Value Date Recorded Sex Assigned at Not on file Gender Identity Not on file Sexual Orientation Not on file documented as of this encounter Miscellaneous Notes * Miscellaneous - Provider, Scanning - 10/18/2012 1:51 PM EST documented in this encounter Plan of Treatment Not on file documented as of this encounter Procedures Procedure Name Priority Date/Time Associated Diagnosis Comments MRI PELVIS SOFT TISSUE (GI ELECTRIC CELL TENDER) WO CONTRAST Routine 10/02/2012 4:23 PM EST Other specified disorders of urethra documented in this encounter Results * MRI pelvis WO contrast (10/02/2012 4:23 PM EST) Anatomical Region Laterality Modality Pelvis Magnetic Resonan ce 10/02/2012 4:23 PM EST Narrative 10/03/2012 1:05 PM EST Examination MR Pelvis WO Clinical History Katarzyna-urethral cyst Comparison 05/11/2012. Technique Pre-contrast imaging of the pelvis was performed on a 1.5 Courtney scanner without IV contrast. Image quality is satisfactory. Findings The larger katarzyna-uretral fluid collection previously seen interposed between the urethra and anterior vaginal wall is no longer seen. The smaller more inferiorly located lesion again demonstrates increased T1 and T2 signal and is unchanged in size. There is no tract emanating from this entity to the urethral lumen to suggest urethral diverticulum. Uterus: Size: 5.1 x 3.2 x 4.3cm. Position: Anteverted, anteflexed. Configuration/Morphology: Normal. Endometrium: Normal. The maximum width of the endometrium is 2 mm. Junctional Zone: The previously seen areas of junctional zone thickening are no longer present. No adenomyosis. The maximum Junctional zone thickness is 6 mm. Myometrium: There are no leiomyomas. Right Ovary: Size: 2.7 x 2.2 x 1.7 cm Image location: series 8, image 9 and series 9, image 4 ?? Left Ovary: Size: 2.2 x 1.4 x 1.4 Cm Image location: series 8, image 30 and series 9, image 4 ?? Cervix: Normal. Vagina: Normal. Bladder: Normal. Lymph nodes: Normal in size. ?? There is trace physiologic pelvic fluid. There is no ascites. ?? There are no peritoneal implants. Impression 1. Previously seen larger cystic lesion interposed between the mid-portion of the urethra and anterior vaginal wall is no longer present. The smaller cystic lesion is unchanged and is felt to represent dilated Myton's glands. 2. No evidence of adenomyosis on current examination. ?? 3. Trace free pelvic fluid, likely physiologic. Film and interpretation reviewed by the attending Procedure Note Nilson King MD - 10/03/2012 Examination MR Pelvis WO Clinical History Katarzyna-urethral cyst Comparison 05/11/2012. Technique Pre-contrast imaging of the pelvis was performed on a 1.5 Courtney scannerwithout IV contrast. Image quality is satisfactory. Findings The larger katarzyna-uretral fluid collection previously seen interposedbetween the urethra and anterior vaginal wall is no longer seen. The smaller more inferiorly located lesion again demonstrates increased T1 and T2 signaland is unchanged in size. There is no tract emanating from this entity to theurethral lumen to suggest urethral diverticulum. Uterus: Size: 5.1 x 3.2 x 4.3cm. Position: Anteverted, anteflexed. Configuration/Morphology: Normal. Endometrium: Normal. The maximum width of the endometrium is 2 mm. Junctional Zone: The previously seen areas of junctional zone thickeningare no longer present. No adenomyosis. The maximum Junctional zone thickness is 6mm. Myometrium: There are no leiomyomas. Right Ovary: Size: 2.7 x 2.2 x 1.7 cm Image location: series 8, image 9 and series 9, image 4 Left Ovary: Size: 2.2 x 1.4 x 1.4 Cm Image location: series 8, image 30 and series 9, image 4 Cervix: Normal. Vagina: Normal. Bladder: Normal. Lymph nodes: Normal in size. There is trace physiologic pelvic fluid. There is no ascites. There are no peritoneal implants. Impression 1. Previously seen larger cystic lesion interposed between the mid-portionof the urethra and anterior vaginal wall is no longer present. The smallercystic lesion is unchanged and is felt to represent dilated Myton's glands. 2. No evidence of adenomyosis on current examination. 3. Trace free pelvic fluid, likely physiologic. Film and interpretation reviewed by the attending Cira Santillan MD IMG MRI ORDERAB LES documented in this encounter Visit Diagnoses Diagnosis Periurethral cyst Other specified disorders of urethra documented in this encounter
--- OUTSIDE RECORDS SUMMARY | 2024-11-10 02:12 | XMS_ITS | Encounter Summary ---
[place] [address] Care Team Providers Care Implementation Architect Name Role Phone Unavailable Primary Care Provider Unavailabl e Encounter Details Date Type Department Care Team (Late st Contact Info) Description 12/07/2012 [place] [address] Christiane Sanchez, RETAIL COVERAGE MERCHANDISER LEAD Social History Tobacco Use Types Packs/Day Years [...]
--- OUTSIDE RECORDS SUMMARY | 2024-11-10 02:12 | XMS_ITS | Encounter Summary ---
Author Organization [facility] Address [facility] [place] [address] Care Team Providers Care General Road Production Manager Name Role Phone Ariana Dill APRN Primary Care Provider + Reason for Referral * Consultation (Routine) - Authorized Specialty Diagnoses / Procedures Referred By Zackary corea Referred To Contact Urology Diagnoses Pelvic floor dysfunction LEFT SIDED DOMINANT FOLLICLE AND CORPUS LUTEUM PELVIC FLOOR DYSFUNCTION Ariana Dill APRN [address] [place] [address] Cira Santillan MD [facility] [place] [address] Referral ID Status Reason Start Date Expiration Date Visits Requested Visits Authorized [id number] Authorized Consult, Test & Treat PCP Updated and/or Approved 08/14/2025 6 6 Encounter Details Date Type Department Care Team (Latest Contact Info) Description 09/10/2024 Transcribe Orders eDH Incoming Referrals [phone] Ariana Dill APRN [address] [place] [address] Pelvic floor dysfunction Social History Tobacco Use [...] Associated Diagnoses Orde r Schedule Referral to Urology Outpatient Referral Routine Pelvic floor dysfunction Ordered: 09/10/2024 documented as of this encounter Visit Diagnoses Diagnosis Pelvic floor dysfunction Pelvic muscle wasting documented in this encounter Care Teams General Road Production Manager Relationship Specialty Start Date End Date Ariana Dill APRN [address] [place] [phone] PCP - General Family Medicine 01/12/24 documented as of this encounter
--- OUTSIDE RECORDS SUMMARY | 2024-11-10 02:12 | XMS_ITS | Encounter Summary ---
[place] [address] Care Team Providers Care Dry House Attendant Name Role Phone Unavailable Primary Care Provider Unavailabl e Encounter Details Date Type Department Care Team (Late st Contact Info) Description 05/17/2011 [place] [address] [address] Cort[place], RN Social History Tobacco Use Types Packs/Day [...]
--- OUTSIDE RECORDS SUMMARY | 2024-11-10 02:12 | XMS_ITS | Encounter Summary ---
Author Organization [facility] Address [facility] [place] [address] Care Team Providers Care Automatic Thread Winder Name Role Phone Unavailable Primary Care Provider Unavailabl e Encounter Details Date Type Department Care Team (Late st Contact Info) Description 11/28/2017 Telephone Urology at [facility] [place] [phone] Cira Santillan MD [facility] [place] [address] Social History Tobacco Use Types Packs/Day Years [...]
--- OUTSIDE RECORDS SUMMARY | 2024-11-10 02:12 | XMS_ITS | Encounter Summary ---
Author Organization [facility] Address [facility] [place] [address] Care Team Providers Care Professor Of Violin Name Role Phone Unavailable Primary Care Provider Unavailabl e Encounter Details Date Type Department Care Team (Late st Contact Info) Description 10/02/2012 11:00 AM EST Office Visit Physical Therapy at [facility] [address] [place] [address] Pool Garcia, PT [facility] PHYSICAL MEDICINE & [place] [address] Anabel Kim MD [facility] JULIANE HUTCHINSON [facility] [address] [place] [address] Spasm of muscle (Primary Dx) Discharge Disposition: [...] as of this encounter Progress Notes * Pool Garcia, PT - 10/02/2012 1:14 PM EST Physical Therapy Initial Evaluation Note: Outpatient Date of Exam/First Treatment: 10/02/2012 Date of onset: 1 year Referring Provider: Cira Santillan MD Diagnosis: 1. Spasm of muscle History of current problem: Mine Lynn is a 21 y.o. female referred to physical therapy for lev ani spasm associated with pelvic pain. The patient had a cyst removal of a pericurethral cyst on 05/20/10. An MRI prior to that showed a large cyst and 1 - 2 smaller cysts. She is to have a repeatMRI today then she is to see Dr. Santillan in Urology. She has not had any further bladder infections. She has aching in her back - prior to her period and during her period. She continues to have sharp pain at times when she voids. Feels like she is sitting on a ball. Sitting most of the day at work and driving. The pain is there when she is full and when she has emptied. She feels that she has to concentrate to void. The pain is a 7 -8 - and occurs when she voids and now it occurs at other times. She is concerned that this is where her periurethral cyst was. She tried ibuprofen 600 mg Tid for 1-2 days and it didn't help either her back pain or her voiding discomfort. She is currently using tylenol/codeine which she takes for her migranes. This helped herpain. She tried vicoden and it made her nauseaus. Has some incontinence with strong urge and has 0-1 episodes of nocturia. Sometimes has to hold herself to make it to the toilet. Denies constipation. Patient's expressed goals for treatment: Decreased pain with intercourse, decreased urinary freq Previous treatment/self care: advil, tyelenol Gynecologic/Obstetric History: : 0 Para: 2 History of sexual abuse or trauma: No Regular menstrual cycles: Yes Frequent urinary tract infections: No Sexual Dysfunction/Pain: Sexually Active: Yes Pain level with intercourse: Yes Level 1: painful, but able to have penetration at same frequency Level 2: painful and limits frequency Level 3: painful and prevents penetration Pain with: Pelvic exam: Yes Tampon use: Yes Back, leg, groin and/or abdominal: Yes Bladder Function: Leaks with: coughing Number of episodes: weekly Severity of leakage: drops Pain or burning with urination:Yes Difficulty starting urine stream: No Strain to empty bladder: No Feel unable to fully empty bladder: No Have a feeling of pelvic heaviness, pressure or falling out: No Have pain with a full bladder: Yes Have urgency of urination: Yes Pad use and Type (per day): none # daytime voids: 9 # episodes of nocturia: 1 Bowel Dysfunction: Frequency of bowel movements: every day Consistency of stool: normal Currently strain to void: Yes Include fiber in diet: Yes Take laxatives/enema regularly: No Have a strong urge to move bowels:Yes History of Constipation: No Have diarrhea often: No Ignore the urge to defecate: No Feel you have not completely emptied your bowels at the end of a BM: Yes Do you have to push on the vagina or rectum to have or complete a BM: No Fecal incontinence: no Fluid Intake: 5 glasses per day: water 0 caffeinated beverages: 0 0 Alcoholic beverages: 0 Social History: The patient works at a [employer]. In monogamous relationship x 5 years. Medical/Surgical History: refer to electronic medical record Prior Level of Function: prior to surgery, pt pain free Functional Limitations: the pt is having pain with sitting, intercourse OBJECTIVE: OBSERVATION: Patient is a pleasant woman in no acute distress POSTURE: The patient has tightness in quadratus on the right causing lateral tilt. Right anterior pelvic rotation. STRENGTH: lower extremity grossly 5/5 Patient gives verbal consent to external and internal exam. External Exam: Introitus: closed at rest, normal, symmetric Pelvic Floor Contraction: absent levator ani activity without perineal body elevation Internal Exam: Levator ani muscle strength: 3:00 1/5, 6:00 1/5, and 9:00 1/5 Levator ani muscle tone: 5/5 Hold Time: unable seconds, # of reps: The patient has nerve pain at 8 and 9 o'clock vaginally SEMG: with internal electrode in supine: with pain Resting Rate: 7 uV Quick flicks: 10 uV with compensation from glutes Long Hold: unable Assessment: These findings are consistent with pelvic floor dysfunction, muscle weakness and musclespasm Patient presents with: Overactive pelvic floor muscles, Impaired strength, Impaired coordination and Impaired endurance Physical therapy is indicated to: increase pelvic floor strength, increase endurance and increase coordination Goals: Short term goals (4 weeks) 1. Patient to be indep in the performance of a home program of pelvic floor muscle exercises on a daily basis. 2. Patient will demonstrate an decrease in pelvic floor muscle resting rate from 7mv. 3. Patient to complete self massage and hot pad every day. Goals: [facility] goals (3 months) 1. Patient to be independent with ongoing self management. 2. Patient will have decreased number of incontinence and nocturia. 3. ADL???s not limited by UI, urgency or frequency. 4. The patient will be bale to have intercourse with 10% reduced pain. Frequency: 1 time in 2 weeks for 6 sessions Plan of care: therapeutic exercise, pelvic floor muscle exercises, SEMG, STM/MFR, stretching, patient/family education, home exercise program, relaxation/downtraining Informed Consent: The patient consented to the physical therapy evaluation. The patient agrees to and understands thephysical therapy treatment plan and goals. Interventions completed today: initial evaluation, patient education and strengthening Total Treatment time: 60 minutes: eval, 45 Total Timed Code Treatment: 15 minutes POOL GARCIA PT documented in this encounter Plan of Treatment Not on file documented as of this encounter Visit Diagnoses Diagnosis Spasm of muscle- Primary documented in this encounter
--- OUTSIDE RECORDS SUMMARY | 2024-11-10 02:12 | XMS_ITS | Encounter Summary ---
[place] [address] Care Team Providers Care Apprentice Jockey Name Role Phone Ariana Dill APRN Primary Care Provider + Reason for Referral * Consultation (Routine) - Denied Specialty Diagnoses / Procedures Referred By Zackary corea Referred To Contact Rheumatology Diagnoses Other health problem within the family Ariana Dill APRN [address] [place] [address] [facility] [address] [place] [phone] Referral ID Status Reason Start Date Expiration Date V isits Requested Visits Authorized [id number] Denied Consult, Test & Treat PCP Updated and/or Approved 07/18/2024 07/18/2025 6 0 Encounter Details Date Type Department Care Team (Latest Contact Info) Description 08/03/2024 Transcribe Orders eDH Incoming Referrals [phone] Ariana Dill APRN [address] [place] [address] Other health problem within the family Social History Tobacco Use Types Packs/Day Years [...] Schedule Referral to Rheumatology Outpatient Referral Routine Other health problem within the family Ordered: 08/03/2024 documented as of this encounter Visit Diagnoses Diagnosis Other health problem within the family documented in this encounter Care Teams Apprentice Jockey Relationship Specialty Start Date End Date Ariana Dill APRN [address] [place] [id number] PCP - General Family Medicine 01/12/24 documented as of this encounter
--- OUTSIDE RECORDS SUMMARY | 2024-11-10 02:12 | XMS_ITS | Clinical Summary ---
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 1 Inhaler 0 4 Active inhalational spacing device (BREATHERITE MDI SPACER) Use with a metered dose inhaler, as directed. May be dispensed with mask as appropriate.. 1 Each 0 4 Active lidocaine 5 % (LIDODERM) 5 % patch APPLY 2 PATCHS ON THE SKIN ONCE DAILY UP TO 12 HOURS ON AND 12 HOURS OFF 20 Patch 1 3 Active ibuprofen (MOTRIN) 200 mg tablet Take 1 Tablet by mouth as needed. Active clonazePAM (KLONOPIN) 1 mg tablet Take 1 Tablet by mouth 2 times daily. 3 Active naproxen (NAPROSYN) 500 mg tablet Take by mouth. 4 Active riboflavin, vitamin B2, 400 mg tablet Take 400 mg by mouth daily. 30 Tablet 4 Active magnesium oxide (MAG-OX) 400 mg (241.3 mg magnesium) tablet Take 1 Tablet by mouth daily. 30 Tablet 4 Active Additional Information Patient not taking.Reported on 09/05/2024 HYDROcodone-kourtnye taminophen (NORCO) 5-325 mg tablet Take 1 Tablet by mouth every 8 hours as needed for Pain. 3 Active sertraline (ZOLOFT) 50 mg tablet Take 1 Tablet by mouth daily. 4 Active levonorgestrel- ethinyl estradiol (STARR 28) 0.15-0.03 mg per tablet Take 1 Tablet by mouth daily. 84 Tablet 4 4 Active Additional Information Patient not taking.Reported on 09/05/2024 hydroxychloroqu ine (PLAQUENIL) 200 mg tablet Take 1 Tablet by mouth daily. 30 Tablet 5 4 Active Additional Information Patient not taking.Reported on 10/12/2024 d-mannose (AZO D-MANNOSE) 500 mg capsule Take 1,000 mg by mouth 2 times daily. 60 Capsule 11 4 Active acetaminophen (TYLENOL) 500 mg tablet Take 2 Tablets by mouth every 8 hours as needed for Pain. 30 Tablet 4 Active venlafaxine (EFFEXOR-XR) 37.5 mg XR capsule Take by mouth. 4 Active sodium chloride (OCEAN) 0.65 % nasal spray Instill 1 [place]wick into both nostrils 4 times daily. 1 Each 4 Active cholecalciferol , Vitamin D3, 25 mcg (1,000 unit) tablet Take 3 Tablets by mouth daily. Use from late fall to late spring to prevent viral illnesses 4 Active amoxicillin (AMOXIL) 500 mg capsule Take 1 Capsule by mouth 2 times daily for 6 days. 12 Capsule 4 10/18/20 24 Active Problems Patient Care Coordination No te Formatting of this note migh t be different from the original. Clinic: Please confirm that PT does not have a Middle Initial. Tonya Jacques 05/16/2022 16:33 Working On-Base, PT had multiple OOD coverages scanned to her profile, did not load due to not being currently active Tonya Jacques 05/16/2022 16:46 Problem Noted Date Diagnosed Date IFRAH III (cervical intraepith elial neoplasia grade III) with severe dysplasia 02/01/2024 Overview (09/05/2024): No tobacco, uses marijuana HPV vaccination age 12 before IC 2008, 2010, 2012 pap neg 2015 pap insuff 2020 pap and HPV neg 2022 pap neg, HPV pos (16, 18 neg) 2023 ASC-H, HPV pos 01/2024 colpo cx bx x3 IFRAH II-III 01/2024 LEEP - IFRAH II, negative margins - also endometriosis 07/2024 NIL + HR HPV; neg genotype 09/05/24 colposcopy with biopsies Chronic pelvic pain in female 04/18/2022 Assessment & Plan (04/18/2022 8:43 EDT): Reviewed indications for narcotic rx as well as risk of dependence and addiction with chronic use. Recommend Nerma follow up with the chronic pain clinic. Will let us know if she needs help connecting with them. H/O section 10/19/2021 Overview (02/01/2024): with coccygeal fracture 2015 Elective primary CS 2021 Spastic pelvic floor syndrome 08/21/2017 Urge urinary incontinence 08/21/2017 Abnormal uterine bleeding Resolved Problems Problem Noted Date Diagnosed Date Resolved Date Supervision of other normal 10/26/2021 10/29/2021 Encounter for supervision of normal first in third trimester 11/25/2015 08/21/2017 Encounters Date Type Department Care Team Description 10/28/2024 Telephone [facility] Rheumatology & Immunology - [address] [id number] Seymour Kang MD Appointment Related (5 MO Follow Up) 10/12/2024 17:52 EST - 10/12/2024 18:38 EST Hospital Encounter [facility] Urgent Care - [address] [id number] Stas Parrish MD Upper respiratory tract infection, unspecified type (Primary Dx); Sore throat; Acute pharyngitis, unspecified etiology; Influenza-like illness; Non-recurrent acute suppurative otitis media of left ear without spontaneous rupture of tympanic membrane Discharge Disposition: Home or Self Care 09/29/2024 10:19 EST - 09/29/2024 12:49 EST Emergency [facility] Emergency Department - [address] [id number] Sprain of right foot, initial encounter (Primary Dx) Discharge Disposition: Home or Self Care 09/29/2024 Travel 09/05/2024 15:15 EST Procedure visit [facility] OBGYN Services - [address] [id number] Christiane Munoz NP Pre-procedure lab exam (Primary Dx); Cervical high risk human papillomavirus (HPV) DNA test positive 09/02/2024 Telephone [facility] OBGYN Services - [address] [id number] Christiane Munoz NP Advice Only 08/22/2024 Telephone [facility] Rehabilitation Therapy - Medical Office Building [address] [place], [place] [phone] Therapy, Outpatient, Appointment Related 08/19/2024 10:00 EDT Procedure visit [facility] OBGYN Services - [address] [id number] Christiane Munoz NP IFRAH II (cervical intraepithelial neoplasia II) (Primary Dx) 08/15/2024 13:00 EDT Telemedicine [facility] Interventional Pain [address] [place], [place] [phone] Cheri Russell PA-C Lumbar radiculopathy, chronic (Primary Dx) 08/15/2024 Telephone [facility] Interventional Pain [address] [place] [address] Cheri Russell PA-C Appointment Related 08/15/2024 Telephone [facility] Interventional Pain [address] [place] [address] Cheri Russell PA-C Appointment Related 08/12/2024 10:00 EDT - 08/12/2024 23:59 EDT Hospital Encounter [facility] Ul[facility]ound [address] [place], [place] [phone] Pelvic pressure in female Discharge Disposition: Home or Self Care from Last 3 Months Surgical History Surgery Date Site/Laterality Comments OTHER SURGICAL HISTORY 10/23/2007 - 10/22/2008 Excision of periurethral cysts at [facility] SECTION Medical History Medical History Date Comments Pelvic floor dysfunction Anxiety, generalized Ativan inte rmittently during Environmental allergies Family History Medical History Relation Comments Hypertension Father Asthma Mother Relation Status Comments Father Mother Social History Tobacco Use Types Packs/Day Years Used Date Smoking Tobacco: Never Passive Smoke Exposure: Never Smokeless Tobacco: Never Tobacco Cessation:Counseling Given: Not Answered Alcohol Use Standard Drinks/Week Comments No 0 (1 standard drink = 0.6 oz pur e alcohol) social PHQ-2 Answer Date Recorded PHQ-2 SUBTOTAL 0 05/10/2023 Interpersonal Safety Answer Date Record ed Physically Hurt Never 05/24/2020 Verbally Threaten Not on file 05/24/2020 Comments No Sex and Gender Information Value Date Recorded Sex Assigned at Female 09/29/2024 12:29 EST Legal Sex Female 18:46 EST Gender Identity Female 12/16/2022 9:04 EST Sexual Orientation Not on file Obstetrics History Para Term AB IAB SAB Ectopic Multiple Livin g Live Births 4 2 2 2 2 0 2 2 Date Outcome GA Total Labor Labor/2nd/3rd Weight Sex Type Anes PTL Annetta A1 A5 Name Clin 2007 IAB 2009 IAB 016 Term 39w 6d 3h 07m 3h 07m/ 4142 g (9 lb 2.1 oz) M Vag-O p Livin g 8 9 Barbara Waddell MD Delivery Location:[facility] 022 Term 37w 3d 3190 g (7 lb 0.5 oz) F CS-LS T Livin g 7 8 MACED ONCI, BGNER Jt Deleon MD Delivery Location:[facility] ([address]) Last Filed Vital Signs Vital Sign Reading Time Taken Comments Blood Pressure 108/62 10/12/2024 1803 EST Pulse 97 10/12/2024 1803 EST Temperature 37.4 ??C (99.3 ??F) 10/12/2024 1803 EST Respiratory Rate 18 10/12/2024 1803 EST Oxygen Saturation 99% 10/12/2024 1803 EST Inhaled Oxygen Concentration - - Weight 47.6 kg (105 lb) 09/29/2024 1017 EST Height 160 cm (5' 3) 09/29/2024 1017 EST Body Mass Index 18.6 09/29/2024 1017 EST Plan of Treatment Upcoming Encounters Date Type Department Care Team (Late st Contact Info) Description 11/18/2024 8:15 EST Office Visit [facility] Pelvic Medicine and Reconstructive Surgery - Medical Office Building [facility] [address] [place] [address] Julia Terrell PA-C [address] [facility] Medical Office [facility], [address] [place] [phone] 11/25/2024 8:00 EST Rehab Therapy Visit [facility] Rehabilitation Therapy - Medical Office Building [address] [place] [address] Cira Jackson, KEMALT [address] [place] [address] [address] [place] [phone] 12/02/2024 8:00 EST Rehab Therapy Visit [facility] Rehabilitation Therapy - Medical Office Building [address] [place] [address] Cira Jackson DPT [address] [place] [address], [address] [place] [phone] 12/09/2024 8:00 EST Rehab Therapy Visit [facility] Rehabilitation Therapy - Medical Office Building [address] [place] [address] Cira Jackson, DPT [address] [place] [address], [address] [place] [phone] 12/16/2024 9:00 EST Rehab Therapy Visit [facility] Rehabilitation Therapy - Medical Office Building [address] [place], [place] [address] Cira Jackson DPT 2 [facility], [facility], [address] [place] [phone] 12/23/2024 9:00 EST Rehab Therapy Visit [facility] Rehabilitation Therapy - Medical Office Building [address] [place], [place] [phone] Cira Jackson DPT [address] [facility], [facility], [address] [place] [phone] Health Maintenance Due Date Last Done Comments Hepatitis B Vaccine (1 of 3 - 19+ 3-dose series) 11/20 COVID-19 Vaccine (2023- season) 2024 Hepatitis C Screen Completed 02/01/2024 Procedures Procedure Name Priority Date/Time Associated Diagnosis Comments POCT RAPID STREP SCREEN STAT 10/12/2024 18:01 EST Sore throat POCT CSN BARCODE URINE DIPSTICK Routine 10/07/2024 11:19 EST Urinary urgency POCT URINE CLINITEK (DIPSTICK) - DOES NOT REFLEX Routine 10/07/2024 11:19 EST Urinary urgency XR FOOT RIGHT 3 OR MORE VIEWS STAT 09/29/2024 11:10 EST XR ANKLE RIGHT 3 OR MORE VIEWS STAT 09/29/2024 10:58 EST SURGICAL PATHOLOGY Routine 09/05/2024 16 :23 EST Cervical high risk human papillomavirus (HPV) DNA test positive POCT TEST, CLINITEK Routine 09/05/2024 15:32 EST Pre-procedure lab exam POCT CSN BARCODE URINE PREG TEST Routine 09/05/2024 15:28 EST Pre-procedure lab exam POCT TEST, CLINITEK ORDER Routine 09/05/2024 15:28 EST Pre-procedure lab exam PAP TEST Routine 08/19/2024 12:45 EDT IFRAH II (cervical intraepithelial neoplasia II) HPV DNA DETECTION WITH GENOTYPING, PCR Today 08/19/2024 12:45 EDT IFRAH II (cervical intraepithelial neoplasia II) US PELVIS TRANSABDOMINAL AND TRANSVAGINAL COMPLETE WITH LIMITED DUPLEX Routine 08/12/2024 11:23 EDT Pelvic pressure in female HEPATITIS C AB W REFLEX TO HCV RNA BY PCR Add-On 02/01/2024 10:31 EDT Screening for viral disease from Last 3 Months or Most Recently Relevant to Health Maintenance Results * POCT RAPID STREP SCREEN (10/12/2024 18:01 EST) Rapid Strep Test, POC Negative Negative Background Clear? Yes Control Line Present Yes Rgt A + Rgt B= Yellow: Yes Culture Sent to Lab? No Swab PHARYNGEAL STRUCTURE / Unknown 10/12/2024 18:01 EST Stas Parrish MD POINT OF CARE TEST ORD ERABLES Final Result * POCT CSN BARCODE URINE DIPSTICK (10/07/2024 11:19 EST) Urine URINE SPECIMEN OBTAINED BY CLEAN CATCH PROCEDURE / Unknown 10/07/2024 11:19 EST 10/07/2024 11:19 EST Julieta Benson PA-C LAB INFO SERVICE AND SUPP ORT & PHONE RESULT Final Result [facility] [address] [place] [address] * XR FOOT RIGHT 3 OR MORE VIEWS (09/29/2024 11:10 EST) Anatomical Region Laterality Modality Lower Extremities Right Computed Radio graphy 09/29/2024 12:0 9 EST Narrative 09/29/2024 12:09 EST XR FOOT RIGHT 3 OR MORE VIEWS09/29/2024 10:48 AM SIGNS & SYMPTOMS / COMMENTS: s/p fall with brusing along 5th and 4th MTP COMPARISON: None available TECHNIQUE: AP, oblique, and lateral radiographs of the right foot were obtained. FINDINGS: There is no acute fracture or dislocation. There is mild soft tissue swelling is noted along the lateral aspect of the forefoot. Mild soft tissue swelling is also noted along the ankle, better assessed on concurrent radiographs. Imaged bones and soft tissues are otherwise unremarkable. [id number] Resulting Agency Comment [id number] Procedure Note Alexander Mendez MD - 09/29/2024 XR FOOT RIGHT 3 OR MORE VIEWS09/29/2024 10:48 AM SIGNS & SYMPTOMS / COMMENTS: s/p fall with brusing along 5th and 4th MTP COMPARISON: None available TECHNIQUE: AP, oblique, and lateral radiographs of the right foot wereobtained. FINDINGS: There is no acute fracture or dislocation. There is mild soft tissueswelling is noted along the lateral aspect of the forefoot. Mild softtissue swelling is also noted along the ankle, better assessed onconcurrent radiographs. Imaged bones and soft tissues are otherwiseunremarkable. [id number] us Marlene Nye PA-C IMG DIAGNOSTIC IMAGING ORDERA BLES Final Result * XR ANKLE RIGHT 3 OR MORE VIEWS (09/29/2024 10:58 EST) Anatomical Region Laterality Modality Lower Extremities, Ankle Right Compute d Radiography 09/29/2024 11:3 6 EST Impressions 09/29/2024 11:36 EST No acute fracture or dislocation. [id number] Narrative 09/29/2024 11:36 EST XR ANKLE RIGHT 3 OR MORE VIEWS09/29/2024 10:48 AM SIGNS & SYMPTOMS / COMMENTS: s/p fall with pain and ROM of ankle COMPARISON: None available TECHNIQUE: AP, lateral, and oblique radiographs of the right ankle were obtained. FINDINGS: There is no acute fracture or dislocation. Mild soft tissue swelling is noted surrounding the right ankle particularly along the lateral malleolus. The bones, joint spaces, and soft tissues are otherwise unremarkable. Resulting Agency Comment [id number] Procedure Note Alexander Mendez MD - 09/29/2024 XR ANKLE RIGHT 3 OR MORE VIEWS09/29/2024 10:48 AM SIGNS & SYMPTOMS / COMMENTS: s/p fall with pain and ROM of ankle COMPARISON: None available TECHNIQUE: AP, lateral, and oblique radiographs of the right ankle wereobtained. FINDINGS: There is no acute fracture or dislocation. Mild soft tissue swelling isnoted surrounding the right ankle particularly along the lateralmalleolus. The bones, joint spaces, and soft tissues are otherwiseunremarkable. IMPRESSION No acute fracture or dislocation. [id number] us Marlene Nye PA-C IM DIAGNOSTIC IMAGING ORDERA BLES Final Result * SURGICAL PATHOLOGY (09/05/2024 16:23 EST) Note to Patient The following pathology results have been interpreted by your pathologist and may be available to you before your health provider has had the opportunity to review them. Please allow time for your provider to receive these results and explore management options, if applicable. 09/10/2024 10:28 [facility] Final Diagnosis A. ENDOCERVIX, CURETTAGE: - Fragments of benign endocervix. B. CERVIX, 12, 1 O'CLOCK, BIOPSY: - Scant benign squamous epithelium and endocervical glands. 09/10/2024 10:28 [facility] Attestation There was significant resident/fellow involvement in the diagnostic evaluation of this case. By the signature below, the attending physician certifies that they have personally conducted a gross and/or microscopic examination of the described specimens and rendered or confirmed the above diagnosis. 09/10/2024 10:28 [facility] at 1028 Clinical History H/O LEEP for IFRAH 3 01/2024; surg path with IFRAH 2 and neg margins. 1st 6 month f/u pap NIL + HR HPV; neg genotypes; clinical diagnosis code: R87.810 09/10/2024 10:28 [facility] Gross Description A. Received in formalin labelled with proper patient identification (initials M, N) and ECC is an aggregate of mitchell-brown opaque mucus (1.3 x 1.0 x 0.1 cm). Submitted entirely in A1. B. Received in formalin labelled with proper patient identification (initials M, N) and 12, 1 o'clock is a scant amount of gill-white soft tissue (0.1 x 0.1 x 0.1 cm in aggregate). Submitted entirely in B1. Note: The specimen may not survive processing. ALYSSA ABEBE([facility]) 09/06/2024 12:03 09/10/2024 10:28 [facility] Resident/Asad w: Sailaja Cruz MD 09/10/2024 10:28 [facility] Performing Lab [facility] 09/10/2024 10:28 [facility] Scanned Images 09/10/2024 10:28 [facility] Tissue CERVIX UTERI STRUCTURE / Unknown Collection, Other / Unknown 09/05/2024 16:23 EST 09/06/2024 10:18 EST Tissue specimen (specimen) CERVIX UTERI STRUCTURE / Unknown 09/05/2024 16:23 EST 09/06/2024 10:18 EST Christiane Munoz NP PATHOLOGY ORDERABLES Final Res ult [facility] [address] [place] [id number] * POCT TEST, CLINITEK (09/05/2024 15:32 EST) UPT Result Negative Negative 09/05/2024 15:38 [facility] HN LAB COMMENT (CLINITEK, UPT) Test performed at [facility] 09/05/2024 15:38 [facility] Comment:False negative resul ts may occur in women who are beyond 5-8 weeks gestation. Diagnosis of should be based on a correlation of test results with typical clinical signs and symptoms. Urine URINE SPECIMEN OBTAINED BY CLEAN CATCH PROCEDURE / Unknown 09/05/2024 15:32 EST 09/05/2024 15:38 EST Christiane Munoz NP POINT OF CARE TEST ORDERABLES Final Result Performing Organization Address [facility] Co de Phone Number [facility] [address] [place] [address] * POCT CSN BARCODE URINE PREG TEST (09/05/2024 15:28 EST) Urine URINE SPECIMEN OBTAINED BY CLEAN CATCH PROCEDURE / Unknown 09/05/2024 15:28 EST 09/05/2024 15:28 EST Christiane Munoz NP LAB INFO SERVICE AND SUPPORT & PHONE RESULT Final Result Performing Organization Address [facility] Co de Phone Number [facility] [address] [place] [address] * PAP TEST (08/19/2024 12:45 EDT) Specimens A. Cervix and/or Endocervix , ThinPrep Imaging System with Manual Evaluation 08/30/2024 15:25 [facility] Specimen Adequacy Satisfactory for Evaluation - transformation zone component present 08/30/2024 15:25 [facility] General Categorization Negative for intraepithelial lesion or malignancy 08/30/2024 15:25 [facility] Descriptive Diagnosis Reactive cellular changes associated with inflammation present (includes repair). 08/30/2024 15:25 [facility] Attestation By the signature below, the attending physician certifies that they have personally conducted a gross and/or microscopic examination of the described specimens and rendered or confirmed the above diagnosis. 08/30/2024 15:25 [facility] at 1525 Clinical History IFRAH 2 on LEEP pathology 02/202408/30/2024 15:25 [facility] Performing Lab [facility] 08/30/2024 15:25 [facility] Scanned Images 08/30/2024 15:25 [facility] HPV High Risk type 16, PCR Negative 08/30/2024 15:25 [facility] HPV High Risk type 18, PCR Negative 08/30/2024 15:25 [facility] HPV Other High Risk Types, PCR Positive Positive for one of the following Other High Risk HPV types: 31,33, 35, 39, 45, 51, 52, 56, 58, 59, 66 and 68. 08/30/2024 15:25 [facility] Pap Test CERVIX UTERI STRUCTURE / Unknown 08/19/2024 12:45 EDT 08/19/2024 14:50 EDT Christiane Munoz NP PATHOLOGY ORDERABLES Final Res ult [facility] [address] [place] [id number] * (ABNORMAL) HPV DNA DETECTION WITH GENOTYPING, PCR (08/19/2024 12:45 EDT) HPV High Risk type 16, PCR Negative Negative 08/30/2024 15:25 [facility] HPV High Risk type 18, PCR Negative Negative 08/30/2024 15:25 [facility] HPV other High Risk types, PCR Positive(A) Negative 08/30/2024 15:25 [facility] Comment: Positive for one of the following Other High Risk HPV types: ??31,33, 35, 39, 45, 51, 52, 56, 58, 59, 66 and 68. Pap Test CERVIX UTERI STRUCTURE / Unknown 08/19/2024 12:45 EDT 08/29/2024 14:17 EST Christiane Munoz NP MICROBIOLOGY - GENERAL ORDERAB LES Final Result [facility] [address] [place] [id number] * US PELVIS TRANSABDOMINAL AND TRANSVAGINAL COMPLETE WITH LIMITED DUPLEX (08/12/2024 11:23 EDT) Anatomical Region Laterality Modality Pelvis, Body Ultrasound 08/12/2024 11:3 9 EDT Impressions 08/12/2024 11:39 EDT Findings/Impression: Right ovary: Arterial and venous Doppler waveforms and color flow are normal in the right ovary. Left ovary: Arterial and venous Doppler waveforms and color flow are normal in the left ovary. GRAYSCALE: Technique: Grayscale ultrasound of the pelvis was performed, first transabdominally, and then transvaginally. Indication for Grayscale: Worsening pelvic pressure/pain over the last few months. Findings: LMP: 07/23/2024 Uterus: The anteverted uterus measures 8.2 x 3.5 x 5.3 cm in size. No focal myometrial abnormality. Endometrium: The hyperechoic endometrium measures 0.8 cm in double endometrial stripe thickness, which is normal. Right ovary: The right ovary measures 2.4 x 1.6 x 1.7 cm in size, for an estimated right ovarian volume of 3.3 mL. No focal lesion. Left ovary: The left ovary measures 3.1 x 2.2 x 2.8 cm in size, for an estimated left ovarian volume of 9.8 mL. Dominant follicle measuring up to 1.4 cm. Additional structure with decompressed central component and peripheral vascularity measuring up to 1.4 cm, compatible with a collapsed corpus luteum. Cervix: Normal. Free fluid: Small-volume anechoic free fluid in the pelvis. Other Findings: None. IMPRESSION: 1. Left-sided dominant follicle and corpus luteum. 2. Otherwise normal pelvic for age ultrasound. [id number] Narrative 08/12/2024 11:39 EDT US PELVIS TRANSABDOMINAL AND TRANSVAGINAL COMPLETE WITH LIMITED DUPLEX ??08/12/2024 11:22 AM SIGNS AND SYMPTOMS/COMMENTS: Worsening pelvic pressure/pain over the last few months. COMPARISON: Pelvic ultrasound 01/10/2024, pelvic MRI 09/07/2023. DUPLEX: Indication for Duplex: Concern for ovarian torsion and/or mass Technique: Color and spectral Doppler ultrasound of the pelvis was performed. Resulting Agency Comment [id number] Procedure Note Ty Newsome MD - 08/12/2024 US PELVIS TRANSABDOMINAL AND TRANSVAGINAL COMPLETE WITH LIMITED [id number]/12/2024 11:22 AM SIGNS AND SYMPTOMS/COMMENTS: Worsening pelvic pressure/pain over the lastfew months. COMPARISON: Pelvic ultrasound 01/10/2024, pelvic MRI 09/07/2023. DUPLEX: Indication for Duplex: Concern for ovarian torsion and/or mass Technique: Color and spectral Doppler ultrasound of the pelvis wasperformed. IMPRESSION Findings/Impression: Right ovary: Arterial and venous Doppler waveforms and color flow arenormal in the right ovary. Left ovary: Arterial and venous Doppler waveforms and color flow arenormal in the left ovary. GRAYSCALE: Technique: Grayscale ultrasound of the pelvis was performed, firsttransabdominally, and then transvaginally. Indication for Grayscale: Worsening pelvic pressure/pain over the last fewmonths. Findings: LMP: 07/23/2024 Uterus: The anteverted uterus measures 8.2 x 3.5 x 5.3 cm in size. Nofocal myometrial abnormality. Endometrium: The hyperechoic endometrium measures 0.8 cm in doubleendometrial stripe thickness, which is normal. Right ovary: The right ovary measures 2.4 x 1.6 x 1.7 cm in size, for anestimated right ovarian volume of 3.3 mL. No focal lesion. Left ovary: The left ovary measures 3.1 x 2.2 x 2.8 cm in size, for anestimated left ovarian volume of 9.8 mL. Dominant follicle measuring up to1.4 cm. Additional structure with decompressed central component andperipheral vascularity measuring up to 1.4 cm, compatible with a collapsedcorpus luteum. Cervix: Normal. Free fluid: Small-volume anechoic free fluid in the pelvis. Other Findings: None. IMPRESSION: 1. Left-sided dominant follicle and corpus luteum. 2. Otherwise normal pelvic for age ultrasound. [id number] us Jennifer Cheng PA-C IMG US OB ORDERABLES Final Result * HEPATITIS C AB W REFLEX TO HCV RNA BY PCR (02/01/2024 10:31 EDT) Hep C Antibody Negative Negative 02/06/2024 17:23 EDT [facility] Blood VENOUS BLOOD / Unknown Venipuncture / Unknown 02/01/2024 10:31 EDT 02/01/2024 11:03 EDT Seymour Kang MD CHEMISTRY & BLOOD GAS ORDERABLE S Final Result [facility] [address] [place] [address] from Last 3 Months or Most Recently Relevant to Health Maintenance [place] [facility] [place]ID [place] Advance Directives For more information, please contact: [phone] * Full Code (Latest Code Status on File) Date Activated Date Inactivated Comments 10/26/2021 9:55 10/26/2021 14:07 Question Answer Comments When the patient has NO PULSE: Full Code / CPR Who Made the Decision? Default/Not Discussed * Full Code Date Activated Date Inactivated Comments 11/26/2015 9:52 11/29/2015 20:50 Question Answer Comments Reason for decision includes: Full code consistent with overall plan of care Who participated in the discussion? Not Discusse d * Full Code Date Activated Date Inactivated Comments 11/25/2015 14:33 11/26/2015 6:02 Question Answer Comments Reason for decision includes: Full code consistent with overall plan of care Who participated in the discussion? Not Discusse d * Full Code Date Activated Date Inactivated Comments 11/25/2015 13:45 11/25/2015 14:28 Question Answer Comments Reason for decision includes: Full code consistent with overall plan of care Who participated in the discussion? Not Discusse d Care Teams Machine Cloth Trimmer Relationship Specialty Start Date End Date Ariana Dill DNP [address] [place] [id number] PCP - General 08/07/23 Rach Waddell MD [address] [place] [address], [facility] [address] [place] [phone] Signal And Communications Maintainer Obstetrics and Gynecology 05/10/23
--- OUTSIDE RECORDS SUMMARY | 2024-11-10 02:12 | XMS_ITS | Encounter Summary ---
Author Organization [facility] [place] [address] Care Team Providers Care Railroad Car Repair Supervisor Name Role Phone Unavailable Primary Care Provider Unavailabl e Encounter Details Date Type Department Care Team (Late st Contact Info) Description 10/19/2010 1:45 PM EST [place] [address] Cira Santillan MD [facility] [place] [address] Discharge Disposition: Home Social History Tobacco Use [...]
--- OUTSIDE RECORDS SUMMARY | 2024-11-10 02:12 | XMS_ITS | Encounter Summary ---
Author Organization [facility] Address [facility] [place] [address] Care Team Providers Care Solar Resource Assessor Name Role Phone Unavailable Primary Care Provider Unavailabl e Reason for Referral * Psychiatric (Routine) - Closed Specialty Diagnoses / Procedures Referred By Contac t Referred To Contact Psychiatry Diagnoses Anxiety Dusty Elena MD [facility] OBSTETRICS & [place] [address] [facility] [place] [address] Referral ID Status Reason Start Date Expiration Date V isits Requested Visits Authorized [id number] Closed Consult, Test & Treat 11/26/2012 05/25/2013 1 1 * Surgical (Routine) - Closed Specialty Diagnoses / Procedures Referred By Contac t Referred To Contact Orthopaedic Surgery / Orthopaedics Diagnoses Back pain Dusty Elena MD [facility] OBSTETRICS [place] [address] [facility] [address] [place] [address] Referral ID Status Reason Start Date Expiration Date V isits Requested Visits Authorized [id number] Closed Consult, Test & Treat 11/26/2012 05/25/2013 1 1 Reason for Visit * Reason Comments Establish Care Encounter Details Date Type Department Care Team (Late st Contact Info) Description 11/26/2012 11:30 AM EST Office Visit Obstetrics and Gynecology at [facility] [place] [place] [address] [facility] OBSTET[facility] [place] [address] Dysuria (Primary Dx); Hematuria; Vulvodynia; Back pain; Pelvic floor dysfunction; Anxiety Discharge Disposition: Home Social History Tobacco Use [...] Pressure 112/60 11/26/2012 11:33 AM EST Pulse - - Temperature - - Respiratory Rate - - Oxygen Saturation - - Inhaled Oxygen Concentration - - Weight 49.9 kg (110 lb) 11/26/2012 11:33 AM EST Height 162.6 cm (5' 4) 11/26/2012 11:33 AM EST Body Mass Index 18.88 11/26/2012 11:33 AM EST documented in this encounter Progress Notes * Dusty Elena MD - 11/26/2012 1:46 PM EST A 22-year-old P0 seen at the request of Nora Garcia for pelvic floor dysfunction. She has developed progressive vulvar pain, resulting in the inability to have intercourse without severe discomfort. She has only had sex a couple times in the last several months. She gets a sharp pain going through her vulva and vagina several times a week. It occurs at random times. She has had the same partner for five years and he is very understanding. She has regular bowel movements, no history of constipation; however, she has significant urinary problems, see below. Ye was referred to Nora by Dr. Coni Santillan who had seen her for excision of a urethral cyst. The cyst was confirmed on MRI. She had presented with urinary symptoms when the symptoms recurred, she returned to Dr. Santillan due to concern about recurrence of the cyst. A followup MRI was negative. However, on internal exam, Dr. Santillan felt that she had a very tight pelvic floor. Nora confirmed that and has been working with her, and has seen her twice, although it is difficult to get here as she lives in [facility]. From the first visit to the most recent, she actually has worsened, and Ye commented that she could not really tolerate the internal pressure point treatment. Ye's main problem, however, is severe low back pain. She thinks it started around the time that the urethral cyst symptoms started, but she cannot be certain. She had some Tylenol with codeine for migraine headaches, and she took some and it helped. She then saw Dr. Kim and got a prescription for more T#3s. She was having so much pain that she took 2 in the morning, 2 in the afternoon, and again at night if needed. She was concerned about this and returned to Dr. Kim. Dr. Kim gave her Vicodin; however, Ye states it made her sick so she only took it twice. Currently, she is just taking Advil. Her back pain is really severe. It hurts to sit. There is pressure on her back with standing. 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 She is in chronic pain and was very teary about this situation. She is scheduled to see a chiropractor tomorrow. She states that her back pain got better after her urethral surgery, but has since recurred as above. She also thinks that the back pain now is somewhat spreading up to the midportion of her back. Currently, she does have continued urinary complaints. She has frequency and urgency. She states she leaks and she thinks she leaks urine every day. She comments that she simply cannot hold her urine. acetaminophen-codeine (TYLENOL #3) 300-30 mg per tablet; levonorgestrel-ethinyl estradiol (LEVORA-28) 0.15-30 mg-mcg per tablet; lidocaine (XYLOCAINE) 5 % ointment; nortriptyline (PAMELOR) 10 mg capsule; nortriptyline (PAMELOR) 10 mg/5 mL solution Past Medical History: Headaches, kidney stones. Review of Systems: She states that when she was younger she had issues with urination as well. 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 She lives in [facility] with her boyfriend. BP 112/60 Ht 162.6 cm (5' 4) Wt 49.896 kg (110 lb) BMI 18.88 kg/m2 LMP 10/29/2012 On exam, external genitalia is normal. There is normal labia and clitoris. The introitus and perineal body are normal. She had marked discomfort with palpation of the vestibular glands. She raised her head off the table and became very anxious with this part of the exam. She commented that she was trying to make her body relax, but that she just felt very anxious about everything. I applied 4% aqueous lidocaine to a cotton ball and left it at the introitus. After 15 minutes, there was slight improvement when I tried to insert my finger into the vagina, but she still became quite anxious and I could not complete my exam. Prior to placing the 4% lidocaine, I did try to assess the levators, but she was too tight, uncomfortable, and anxious to proceed. Vaginal yeast culture done. Impression: Vestibulodynia, pelvic floor discomfort, low back pain, anxiety. Plan: Ye has several problems. For now, advise that we check yeast culture. Rx given for 5% lidocaine ointment to use q.h.s. and prior to attempted intercourse. Continue pelvic floor physical therapy as best she can. Long discussion about need for pain control. Will begin nortriptyline. I discussed in detail how to use and the side effects. Rx is written for nortriptyline syrup. She will start with an eighth of a teaspoon and then slowly increase. She will call to check in when she reaches one teaspoon. A written script for the 10 mg capsule is given as well. [facility] also [facility] to try to better get a handle on her back pain. If they cannot find a cause for her back pain, then would certainly continue pelvic floor PT and maybe she would benefit from physical therapy to her back as well. She may need ultimately referral to a pain clinic for management of her pain. Finally, she is referred to Dr. Kath Gilmore to try to help he with her anxiety. She may have recommendations for counseling related to her chronic pain management as well. COPY: Nora Garcia, PT Anabel Judy, M.Alok Santillan M.D. documented in this encounter Miscellaneous Notes * Miscellaneous - Provider, Scanning - 11/30/2012 9:16 AM EST documented in this encounter Plan of Treatment Scheduled Referrals Name Type Priority Associated Diagnoses Order Schedule Referral to [facility] Center Outpatient Referral Routine Back pain Ordered: 11/26/2012 Referral to Psychiatry Outpatient Referral Routine Anxiety Ordered: 11/26/2012 documented as of this encounter Procedures Procedure Name Priority Date/Time Associated Diagnosis Comments YEAST CULTURE Routine 11/26/2012 1:10 PM EST Vulvodynia URINALYSIS WITH REFLEX CULTURE Routine 11/26/2012 12:15 PM EST Hematuria URINE CULTURE Routine 11/26/2012 12:14 PM EST Dysuria POCT URINE DIPSTICK Routine 11/26/2012 Dysuria documented in this encounter Results * Yeast culture Vaginal (11/26/2012 1:10 PM EST) Yeast Culture ? Patient Name: YE PEREZ ? Ordered By: DUSTY ELENA ? MR#: [id number] ?LOC: ??5L ? /Sex: ??1990 (22 years), ? Female ? PROCEDURE: Yeast Culture ?SOURCE: Vaginal ? COLLECTED: 11/26/2012 13:10 ? STARTED: 11/26/2012 14:10 ? FINAL REPORT ? Final Report ? Verified:2012 10:21 ? No Yeast isolated ? PRELIMINARY REPORT ? Preliminary Report ? Verified:2012 08:06 ? No Yeast isolated to date ? CERNER MILLENNIUM Vaginal 11/26/2012 1:10 PM EST 11/26/2012 2:10 PM EST Narrative Resulting Agency Comment Spec In Lab Dusty Elena MD MICROBIOLOGY - GENE [facility] ORDERABLES CERNER MILLENNIUM * (ABNORMAL) Urinalysis with microscopic (11/26/2012 12:15 PM EST) Glucose, Urine Dipstick Negative Negative mg/dL CERNER MILLENNIUM Protein, Urine Dipstick Trace(A) Neg mg/dL CERNER MILLENNIUM Bilirubin, Urine Dipstick Negative Negative mg/dL CERNER MILLENNIUM Urobilinogen, Urine Dipstick Normal mg/dL CERNER MILLENNIUM pH, Urn (dipstick) 6.5 5.0 - 8.0 CERNER MILLENNIUM Blood, Urine Dipstick Moderate mg/dL CERNER MILLENNIUM Ketone, Urine Dipstick Negative mg/dL CERNER MILLENNIUM Nitrite, Urine Dipstick Negative CERNER MILLENNIUM Leukocytes, Urine Dipstick Negative mcL CERNER MILLENNIUM Appearance, Urine Dipstick Clear Clear CERNER MILLENNIUM Specific [place] Urine Automated 1.017 1.002 - 1.030 CERNER MILLENNIUM Color, Urine Dipstick Yellow Yellow CERNER MILLENNIUM RBC, Urine 3 0 - 4 /HPF CERNER MILLENNIUM WBC, Urine <1 0 - 5 /HPF CERNER MILLENNIUM Bacteria, Urine Occasional /HPF CER NER MILLENNIUM Squamous Epithelial Cells, Urine 5(H) <=4 /HPF ELE GUTIERREZ Transitional Epithelial Cells, Urine <1 <=1 /HPF ELE GUTIERREZ Urine specimen (specimen) URINE SPECIMEN OBTAINED BY CLEAN CATCH PROCEDURE / Unknown 11/26/2012 12:15 PM EST 11/26/2012 2:02 PM EST Narrative Resulting Agency Comment Spec In Lab Dusty Elena MD URINE ORDERABLES ELE GUTIERREZ * Urine culture Clean Catch Urine (11/26/2012 12:14 PM EST) Urine Culture ? Patient Name: YE PEREZ ? Ordered By: DUSTY ELENA ? MR#: [id number] ?LOC: ??5L ? /Sex: ?? 0 (22 years), ? Female ? PROCEDURE: Urine Culture ?SOURCE: U CC ? COLLECTED: 11/26/2012 12:14 ? STARTED: 11/26/2012 14:09 ? FINAL REPORT ? Final Report ? Verified: 09:42 ? No growth (Less than 1,000 cfu/ml). ? ____ ELE GUTIERREZ Urine specimen obtained by clean catch procedure (specimen) 11/26/2012 12:14 PM EST 11/26/2012 2:09 PM EST Narrative Resulting Agency Comment Spec In Lab Dusty Elena MD MICROBIOLOGY - GENE RAL ORDERABLES ELE GUTIERREZ * POCT urine dipstick (11/26/2012) POC Sp [place] 1.002 - 1.030 POC pH, UA 5.0 - 8.5 POC Leuk, UA Neg. Negative - Negative POC Nitrite, UA Neg. Negative - Negative POC Protein, UA Negative - Negative mg/dL POC Glucose, UA Normal - Normal mg/dL POC Ketone, UA Negative - Negative POC Urobil, UA 0.2 - 1.0 mg/dL POC Bili, UA Negative - Negative POC Blood, UA About 50 Negative - Negative dickson/uL Dusty Elena MD POINT OF CARE TEST ORDERABLES documented in this encounter Visit Diagnoses Diagnosis Dysuria- Primary Hematuria Hematuria, unspecified Vulvodynia Vulvodynia, unspecified Back pain Backache, unspecified Pelvic floor dysfunction Pelvic muscle wasting Anxiety Anxiety state, unspecified documented in this encounter
--- OUTSIDE RECORDS SUMMARY | 2024-11-10 02:13 | XMS_ITS | Encounter Summary ---
Author Organization [facility] Address [address] [place] [address] Care Team Providers Care Clark Driver Name Role Phone Rach Waddell MD Unavailable [phone] Ariana Dill DNP Primary Care Provider [phone] Reason for Visit * Reason Onset Date Comments Prior Auth, Medication 07/17/2024 Encounter Details Date Type Department Care Team (Late st Contact Info) Description 07/17/2024 Telephone [facility] Pelvic Medicine and Reconstructive Surgery - Medical Office [facility] [address] [place] [address] Destiney Irizarry RN Prior Auth, Medication Social History Tobacco Use Types Packs/Day Years Used Date Smoking Tobacco: Never Passive Smoke Exposure: Never Smokeless Tobacco: Never Alcohol Use Standard Drinks/Week Comments No 0 [...] 9:04 EST Sexual Orientation Not on file documented as of this encounter Functional Status * Are you deaf or do you have serious difficulty hearing? Answer Date of Assessment Author No 01/11/2024 18:50 Karlo Clark, RN * Are you blind or do you have serious difficulty seeing, even when wearing glasses? Answer Date of Assessment Author No 10/27/2021 8:27 Lois Vega RN * Do you have serious difficulty walking or climbing stairs? (5 years old or older) Answer Date of Assessment Author No 10/27/2021 8:27 Lois Vega RN * Do you have difficulty dressing or bathing? (5 years old or older) Answer Date of Assessment Author No 10/27/2021 8:27 Lois Vega RN * Because of a physical, mental, or emotional condition, does this person have difficulty doing errands alone such as visiting a doctor's office or shopping? Answer Date of Assessment Author Yes 02/06/2024 14:42 EDT Leslee Deal RN documented as of this encounter Mental Status * Because of a physical, mental, or emotional condition, does this person have serious difficulty concentrating, remembering, or making decisions? Answer Entry Date Author Yes 02/20/2024 12:00 EDT Leslee Deal RN documented in this encounter Miscellaneous Notes * Telephone Encounter - Destiney Irizarry RN - 07/17/2024 1116 EDT PA request received from [facility] for a PA request for D-mannose. Being that this is a supplement, which is not controlled by the FDA, Medicaid would not cover this drug. I further discussed with Jennifer, who advised that it was sent for an rx due to concerns with finances. She suggested that I reach out to the patient to further discuss. Phone call to the patient - patient states that she would prefer to get them OTC if not needed for an rx as long as they aren't too expensive. Quick Liquid Light search reveals that they are $20 for 120 pills. Patient will purchase OTC and be in contact with the office for any other questions/concerns. Patient mentioned multiple times that she will get azo I explained the difference between Azo and Azo brand D-Mannose. Education provided on which medication sheshould be purchasing. She expressed understanding and was appreciative of the discussion. DESTINEY IRIZARRY RN 07/17/2024 11:25 documented in this encounter Plan of Treatment Upcoming Encounters Date Type Department Care Team (Late st Contact Info) Description 11/18/2024 8:15 EST Office Visit [facility] Pelvic Medicine and Reconstructive Surgery - Medical Office Building [address] [address] Julia Terrell PA-C [address] [facility] Medical Office Building, [address] [place] [phone] 11/25/2024 8:00 EST Rehab Therapy Visit [facility] Rehabilitation Therapy - Medical Office [address] [address] Cira Jackson DPT [address] [place] [address] [address] [place] [phone] 12/02/2024 8:00 EST Rehab Therapy Visit [facility] Rehabilitation Therapy - Medical Office [address] [address] Cira Jackson DPT [address] [place] [address], [address] [place] [phone] 12/09/2024 8:00 EST Rehab Therapy Visit [facility] Rehabilitation Therapy - Medical Office Building [address] [place] [address] Cira Jackson DPTunde [address] [place] [address] [address] [place] [phone] 12/16/2024 9:00 EST Rehab Therapy Visit [facility] Rehabilitation Therapy - Medical Office Building [address] [place] [id number] Cira Jackson DPT [address] [facility], [address] [place] [phone] 12/23/2024 9:00 EST Rehab Therapy Visit [facility] Rehabilitation Therapy - Medical Office Building [address] [place], [place] [address] Cira Jackson DPT [address] [facility], [address] [place] [phone] documented as of this encounter Visit Diagnoses Not on filedocumented in this encounter Care Teams Clark Driver Relationship Specialty Start Date End Date Ariana Dill DNP [address] [place] [address] PCP - General 08/07/23 Rach Waddell MD [address] [facility], [address] [place] [phone] [employer] Obstetrics and Gynecology 05/10/23 documented as of this encounter
--- OUTSIDE RECORDS SUMMARY | 2024-11-10 02:13 | XMS_ITS | Encounter Summary ---
Author Organization [facility] Address [address] [place] [address] Care Team Providers Care Mailroom Courier Name Role Phone Rach Waddell MD Unavailable Ariana Dill DNP Primary Care Provider [phone] Reason for Visit * Reason Comments Gynecologic Exam Follow-up Encounter Details Date Type Department Care Team (Late st Contact Info) Description 08/19/2024 10:00 EDT Procedure visit [facility] OBGYN Services - [facility] [address], [place] [phone] Christiane Munoz NP 111 [facility], [address] [place] [address] IFRAH II (cervical intraepithelial neoplasia II) (Primary Dx) Social History Tobacco Use Types Packs/Day Years [...] Sign Reading Time Taken Comments Blood Pressure 108/70 08/19/2024 1126 EDT Pulse - - Temperature - - Respiratory Rate - - Oxygen Saturation - - Inhaled Oxygen Concentration - - Weight 46.7 kg (103 lb) 08/19/2024 1126 EDT Height - - Body Mass Index 18.1 07/15/2024 0821 EDT documented in this encounter Functional Status * Are you deaf or do you have serious difficulty hearing? Answer Date of Assessment Author No 01/11/2024 18:50 EDT Karlo Haywood RN * Are you blind or do you have serious difficulty seeing, even when wearing glasses? Answer Date of Assessment Author No 10/27/2021 8:27 EST Lois Deal RN * Do you have serious difficulty [...] Leslee Deal RN documented in this encounter Progress Notes * Christiane uMnoz NP - 08/19/2024 1000 EDT HPI: Mine Lynn is a 33 y.o. who presents for 6 month follow up pap/HPV after LEEP showed IFRAH 2 and neg margins 02/2024. No tobacco, uses marijuana HPV vaccination age 12 before IC 2008, 2010, 2012 pap neg 2016 pap insuff 2020 pap and HPV neg 2022 pap neg, HPV pos (16, 18 neg) 2023 ASC-H, HPV pos 01/2024 colpo cx bx x3 IFRAH II-III 01/2024 LEEP - IFRAH II, negative margins - also endometriosis ROS: Review of Systems Constitutional: Negative. Genitourinary: Abnormal paps Started period yesterday H/o urinary incontinence and retention Past Medical History Past Surgical History Past Medical History: Diagnosis Date Anxiety, generalized Ativan intermittently during Environmental allergies Pelvic floor dysfunction Past Surgical History: Procedure Laterality Date SECTION OTHER SURGICAL HISTORY 2007 Excision of periurethral cysts at [facility] Obstetric History Gynecologic History OB History Para Term AB Living 4 2 2 2 2 SAB IAB Ectopic Multiple Live Births 2 0 2 # Outcome Date GA Lbr Kashif/2nd Weight Sex Type Anes PTL Lv 4 Term 10/26/21 37w3d 3190 g (7 lb 0.5 oz) F CS-LST DIETER 3 Term 11/26/15 39w6d / 03:07 4142 g (9 lb 2.1 oz) M Vag-Op DIETER 2 IAB 2009 1 IAB 2007 Menses: 08/18/24 Cervical cancer screening: IFRAH 3 [address] STI's: HPV Sexual activity: male partner Contraception: COCPs Social History Family History Social History Tobacco Use Smoking status: Never Passive exposure: Never Smokeless tobacco: Never Vaping Use Vaping status: Never Used Substance Use Topics Alcohol use: No Comment: social Drug use: No Problem Relation Name Comments Asthma Mother Hypertension Father Medications Allergies Current Outpatient Medications Medication acetaminophen (TYLENOL) 500 mg tablet albuterol 90 mcg/actuation inhaler clonazePAM (KLONOPIN) 1 mg tablet d-mannose (AZO D-MANNOSE) 500 mg capsule HYDROcodone-acetaminophen (NORCO) 5-325 mg tablet hydroxychloroquine (PLAQUENIL) 200 mg tablet ibuprofen (MOTRIN) 200 mg tablet inhalational spacing device (BREATHERITE MDI SPACER) levonorgestrel-ethinyl estradiol (STARR 28) 0.15-0.03 mg per tablet lidocaine 5 % (LIDODERM) 5 % patch magnesium oxide (MAG-OX) 400 mg (241.3 mg magnesium) tablet naproxen (NAPROSYN) 500 mg tablet riboflavin, vitamin B2, 400 mg tablet sertraline (ZOLOFT) 50 mg tablet No current facility-administered medications for this visit. Allergies Allergen Reactions Imitrex [Sumatriptan Succinate] Shortness Of Breath Objective: BP 108/70 Wt 46.7 kg (103 lb) LMP 08/19/2024 (Exact Date) BMI 18.10 kg/m?? Physical Exam Pelvic exam: VULVA: normal appearing vulva with no masses, tenderness or lesions, VAGINA: normal appearing vagina with normal color and discharge, no lesions, pt with menses, and CERVIX: normal appearing cervix without discharge or lesions, s/p LEEP appearance . Assessment/Plan: Mine Lynn is a 33 y.o. with IFRAH on LEEP surg path 02/2024 and prior IFRAH 2-3 on colpo 01/2024, who presents for 6 month follow up cotesting after LEEP. ThinPrep Pap and high-risk HPV testing obtained. If these results both normal then needs annual cotesting x 3 years, followed by cotesting every 3 years for at least 25 years after the LEEP. Will notify of plan in MyChart. I spent a total of 20 minutes on the date of this encounter meeting with the patient and reviewing documentation/coordinating care as described in the above note. No procedures were performed at the time of the visit. Christiane Munoz NP documented in this encounter Plan of Treatment Upcoming Encounters Date Type Department Care Team (Late st Contact Info) Description 11/18/2024 8:15 EST Office Visit [facility] Pelvic Medicine and Reconstructive Surgery - Medical Office Building [facility] [address] [place] [phone] Julia Terrell PA-C [address] [place] [address] Medical Office Building, [address] [place] [phone] 11/25/2024 8:00 EST Rehab Therapy Visit [facility] Rehabilitation Therapy - Medical Office Building [address] [place], [place] [phone] Cira Jackson, ROBERTO [address] [facility], [facility], [address] [place] [phone] 12/02/2024 8:00 EST Rehab Therapy Visit [facility] Rehabilitation Therapy - Medical Office Building [address] [place] [address] Cira Jackson, DPT [address] [place] [address], [facility], [address] [place] [phone] 12/09/2024 8:00 EST Rehab Therapy Visit [facility] Rehabilitation Therapy - Medical Office [address] [address] Cira Jackson, DPT [address] [place] [address], [facility], [address] [place] [phone] 12/16/2024 9:00 EST Rehab Therapy Visit [facility] Rehabilitation Therapy - Medical Office Building [address] [place] [address] Cira Jackson, DPT [address] [place] [address], [facility], [address] [place] [phone] 12/23/2024 9:00 EST Rehab Therapy Visit [facility] Rehabilitation Therapy - Medical Office [address] [address] Cira Jackson, DPT [address] [place] [address], [facility], [address] [place] [phone] documented as of this encounter Procedures Procedure Name Priority Date/Time Associated Diagnosis Comments PAP TEST Routine 08/19/2024 12:45 EDT IFRAH II (cervical intraepithelial neoplasia II) HPV DNA DETECTION WITH GENOTYPING, PCR Today 08/19/2024 12:45 EDT IFARH II (cervical intraepithelial neoplasia II) documented in this encounter Results * (ABNORMAL) HPV DNA DETECTION WITH GENOTYPING, PCR (08/19/2024 12:45 EDT) HPV High Risk type 16, PCR Negative Negative 08/30/2024 15:25 [facility] HPV High Risk type 18, PCR Negative Negative 08/30/2024 15:25 [facility] HPV other High Risk types, PCR Positive(A) Negative 08/30/2024 15:25 [facility] Comment: Positive for one of the following Other High Risk HPV types: ??31,33, 35, 39, 45, 51, 52, 56, 58, 59, 66 and 68. Pap Test CERVIX UTERI STRUCTURE / Unknown 08/19/2024 12:45 EDT 08/29/2024 14:17 EST Christiane Munoz NP MICROBIOLOGY - GENERAL ORDERAB LES Final Result [facility] [address] [place] [address] * PAP TEST (08/19/2024 12:45 EDT) Specimens A. Cervix and/or Endocervix , ThinPrep Imaging System with Manual Evaluation 08/30/2024 15:25 [facility] Specimen Adequacy Satisfactory for Evaluation - transformation zone component present 08/30/2024 15:25 [facility] General Categorization Negative for intraepithelial lesion or malignancy 08/30/2024 15:25 [facility] Descriptive Diagnosis Reactive cellular changes associated with inflammation present (includes repair). 08/30/2024 15:25 [facility] Attestation By the signature below, the attending physician certifies that they have personally conducted a gross and/or microscopic examination of the described specimens and rendered or confirmed the above diagnosis. 08/30/2024 15:25 [facility] at 1525 Clinical History IFRAH 2 on LEEP pathology 02/202408/30/2024 15:25 [facility] Performing Lab [facility] 08/30/2024 15:25 [facility] Scanned Images 08/30/2024 15:25 [facility] HPV High Risk type 16, PCR Negative 08/30/2024 15:25 [facility] HPV High Risk type 18, PCR Negative 08/30/2024 15:25 [facility] HPV Other High Risk Types, PCR Positive Positive for one of the following Other High Risk HPV types: 31,33, 35, 39, 45, 51, 52, 56, 58, 59, 66 and 68. 08/30/2024 15:25 [facility] Pap Test CERVIX UTERI STRUCTURE / Unknown 08/19/2024 12:45 EDT 08/19/2024 14:50 EDT us Christiane Munoz RIVERBO[employer] MASTER PATHOLOGY ORDERABLES Final Res ult [facility] [address] [place] [address] documented in this encounter Visit Diagnoses Diagnosis IFRAH II (cervical intraepithelial neoplasia II)- Primary Moderate dysplasia of cervix documented in this encounter Care Teams Mailroom Courier Relationship Specialty Start Date End Date Ariana Dill DNP [address] [place] [address] PCP - General 08/07/23 Rach Waddell MD 111 [facility], [facility], [address] [place] [phone] [employer] Supervisor Obstetrics and Gynecology 05/10/23 documented as of this encounter
--- OUTSIDE RECORDS SUMMARY | 2024-11-10 02:13 | XMS_ITS ---
Author Organization [facility] Address [address] [place] [address] Care Team Providers Care Room Worker Name Role Phone Rach Waddell MD Unavailable [phone] Ariana Dill DNP Primary Care Provider [phone] Active Problems Patient Care Coordination No te [...] Urge urinary incontinence 08/21/2017 Abnormal uterine bleeding Current Oncology Plans No current plan information found. Past Plans No past plan information found. Radiation Treatments * No radiation treatments are documented for this patient in [facility]. Treatments may have been administered in another system. Lifetime Dose Tracking * Chemical Lifetime Dose Automatic Entry Manual Entr y Fluoro Time 0.1 minutes 0.1 minutes 0 minutes Air Kerma 1.44 mGy 1.44 mGy 0 mGy Dose Area Product 0.123 mGy-cm 0.123 mGy-cm 0 mGy-cm Resolved Problems Problem Noted Date Diagnosed Date Resolved Date Supervision of other normal 10/26/2021 10/29/2021 Encounter for supervision of normal first in third trimester 11/25/2015 08/21/2017
--- OUTSIDE RECORDS SUMMARY | 2024-11-10 02:13 | XMS_ITS | Encounter Summary ---
Author Organization [facility] Address [address] [place] [address] Care Team Providers Care Transfer Table Operator Name Role Phone Rach Waddell MD Unavailable Ariana Dill DNP Primary Care Provider [phone] Reason for Visit * Reason Comments Procedure Encounter Details Date Type Department Care Team (Late st Contact Info) Description 09/05/2024 15:15 EST Procedure visit [facility] OBGYN Services - [facility] [address] [place], [place] [phone] Christiane Munoz NP 111 [facility], [address] [place] [address] Pre-procedure lab exam (Primary Dx); Cervical high risk human papillomavirus (HPV) DNA test positive Social History Tobacco Use Types Packs/Day Years [...] Sign Reading Time Taken Comments Blood Pressure 114/62 09/05/2024 1518 EST Pulse - - Temperature - - Respiratory Rate - - Oxygen Saturation - - Inhaled Oxygen Concentration - - Weight - - Height - - Body Mass Index - - documented in this encounter Functional Status * [...] Date of Assessment Author Yes 02/06/2024 14:42 TEREZAT Leslee Deal RN documented as of this encounter Mental Status * Because of a physical, mental, or emotional condition, does this person have serious difficulty concentrating, remembering, or making decisions? Answer Entry Date Author Yes 02/20/2024 12:00 Leslee Victor RN documented in this encounter Progress Notes * Christiane Munoz NP - 09/05/2024 1515 EST Images from the original note were not included. COLPOSCOPY PROCEDURE NOTE Mine Lynn is a 33 y.o. female who presents for colposcopy No tobacco, uses marijuana HPV vaccination age 12 before IC 2008, 2010, 2012 pap neg 2016 pap insuff 2020 pap and HPV neg 2022 pap neg, HPV pos (16, 18 neg) 2023 ASC-H, HPV pos 01/2024 colpo cx bx x3 IFRAH II-III 01/2024 LEEP - IFRAH II, negative margins - also endometriosis 07/2024 NIL + HR HPV; neg genotype History Age: 33 y.o. LMP: Patient's last menstrual period was 08/19/2024 (exact date). 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 She has never been exposed to tobacco smoke. She has never used smokeless tobacco. Allergic to latex: No Allergic to Iodine or Betadine: No Lab A test was completed and results are negative Pre-Procedure The nature and meaning of screening results (pap tests, HPV) or referred diagnosis were discussed. HPV infection discussed. Cervical dysplasia and its significance and natural history discussed. Colposcopy procedure explained. Side effects, risks and complications discussed (including risk of bleeding, infection, non-diagnostic colposcopy result). Written informed consent obtained. Procedure Note BP 114/62 LMP 08/19/2024 (Exact Date) The exam was chaperoned by Glendy Maciel MA The vulva, vagina, and perianal area were examined with the following findings: no gross abnormalities . Vaginal inspection: normal without visible lesions Vulvar inspection: no visible lesions Speculum placed in the vagina and visualization of cervix achieved. Vagina and cervix soaked with acetic acid solution. Cervix and vagina painted with Lugol's solution. The following findings were noted: Cervix: fully visualized Squamocolumnar junction: not fully visualized Acetowhite changes: Yes Lesion(s) present (acetowhite or other): Yes Lesion description: 1. Lesion: 12-1 o'clock, Lesion fully visualized: Yes, Lesion at the SCJ: Yes, and specific features include: Acetowhite thin/translucent, Acetowhite rapidly fading, Irregular/geographic border, and Flat Hemostasis:Monsel's solution Procedure performed by: Christiane Munoz NP Impression: possible canal disease Specimens: Cervix: 1 and 12 o'clock ECC: Curettage and Morris Final Diagnosis A. ENDOCERVIX, CURETTAGE: - Fragments of benign endocervix. B. CERVIX, 12, 1 O'CLOCK, BIOPSY: - Scant benign squamous epithelium and endocervical glands. Plan Results will be communicated with the patient via [employer] Discussed the importance of appropriate follow-up, post-procedural written instructions provided Diagnosis added to problem list, medical history, surgical history as indicated Christiane Munoz NP [employer] message sent to patient: Tripp Blount, Good news, your cervical biopsies and scraping of cells from inside your endocervical canal were negative for precancerous changes. The plan is for you to have a repeat Pap and high-risk HPV test in 1 year, due August 2025. Will add you to our Pap reminder system. Sincerely, MARIALUISA Govea NP documented in this encounter Plan of Treatment Upcoming Encounters Date Type Department Care Team (Late st Contact Info) Description 11/18/2024 8:15 EST Office Visit [facility] Pelvic Medicine and Reconstructive Surgery - Medical Office [address] [id number] Julia Terrell PA-C [address] [place] [address] Medical Office [facility], [address] [phone] 11/25/2024 8:00 EST Rehab Therapy Visit [facility] Rehabilitation Therapy - Medical Office [address] [phone] Cira Jackson DPT [address] [place] [address], [address] [place] [phone] 12/02/2024 8:00 EST Rehab Therapy Visit [facility] Rehabilitation Therapy - Medical Office [address] [address] Cira Jackson DPT [address] [place] [address], [address] [place] [phone] 12/09/2024 8:00 EST Rehab Therapy Visit [facility] Rehabilitation Therapy - Medical Office Building [address] [place], [place] [address] Cira Jackson, DPT [address] [place] [address], [facility], [address] [place] [phone] 12/16/2024 9:00 EST Rehab Therapy Visit [facility] Rehabilitation Therapy - Medical Office Building [address] [place], [place] [phone] Cira Jackson, DPT [address] [place] [address], [facility], [address] [place] [phone] 12/23/2024 9:00 EST Rehab Therapy Visit [facility] Rehabilitation Therapy - Medical Office Building [address] [place], [place] [address] Cira Jackson, KEMALT [address] [place] [address], [facility], [address] [place] [phone] documented as of this encounter Procedures Procedure Name Priority Date/Time Associated Diagnosis Comments SURGICAL PATHOLOGY Routine 09/05/2024 16 :23 EST Cervical high risk human papillomavirus (HPV) DNA test positive POCT TEST, CLINITEK Routine 09/05/2024 15:32 EST Pre-procedure lab exam POCT CSN BARCODE URINE PREG TEST Routine 09/05/2024 15:28 EST Pre-procedure lab exam POCT TEST, CLINITEK ORDER Routine 09/05/2024 15:28 EST Pre-procedure lab exam documented in this encounter Results * SURGICAL PATHOLOGY (09/05/2024 16:23 [facility]) Note to Patient The following pathology results have been interpreted by your pathologist and may be available to you before your health provider has had the opportunity to review them. Please allow time for your provider to receive these results and explore management options, if applicable. 09/10/2024 10:28 [facility] Final Diagnosis A. ENDOCERVIX, CURETTAGE: - Fragments of benign endocervix. B. CERVIX, 12, 1 O'CLOCK, BIOPSY: - Scant benign squamous epithelium and endocervical glands. 09/10/2024 10:28 [facility] Attestation There was significant resident/fellow involvement in the diagnostic evaluation of this case. By the signature below, the attending physician certifies that they have personally conducted a gross and/or microscopic examination of the described specimens and rendered or confirmed the above diagnosis. 09/10/2024 10:28 [facility] at 1028 Clinical History H/O LEEP for IFRAH 3 01/2024; surg path with IFRAH 2 and neg margins. 1st 6 month f/u pap NIL + HR HPV; neg genotypes; clinical diagnosis code: R87.810 09/10/2024 10:28 [facility] Gross Description A. Received in [...] The specimen may not survive processing. ALYSSA ABEBE(ASCP) 09/06/2024 12:03 09/10/2024 10:28 [facility] Resident/Asad w: Sailaja Cruz MD 09/10/2024 10:28 [facility] Performing Lab [facility] 09/10/2024 10:28 EST [facility] Scanned Images 09/10/2024 10:28 EST [facility] Tissue CERVIX UTERI STRUCTURE / Unknown Collection, Other / Unknown 09/05/2024 16:23 EST 09/06/2024 10:18 EST Tissue specimen (specimen) CERVIX UTERI STRUCTURE / Unknown 09/05/2024 16:23 EST 09/06/2024 10:18 EST Christiane Munoz NP PATHOLOGY ORDERABLES Final Res ult Performing Organization Address [facility]/ZIP Co de Phone Number [facility] [address] [place] [address] * POCT TEST, CLINITEK (09/05/2024 15:32 EST) UPT Result Negative Negative 09/05/2024 15:38 EST [facility] HN LAB COMMENT (CLINITEK, UPT) Test performed at [facility] 09/05/2024 15:38 EST [facility] Comment:False negative resul ts may occur in women who are beyond 5-8 weeks gestation. Diagnosis of should be based on a correlation of test results with typical clinical signs and symptoms. Urine URINE SPECIMEN OBTAINED BY CLEAN CATCH PROCEDURE / Unknown 09/05/2024 15:32 EST 09/05/2024 15:38 EST Christiane Munoz NP POINT OF CARE TEST ORDERABLES Final Result Performing Organization Address City/[facility]/ZIP Co de Phone Number [facility] [address] [place] [address] * POCT CSN BARCODE URINE PREG TEST (09/05/2024 15:28 EST) Urine URINE SPECIMEN OBTAINED BY CLEAN CATCH PROCEDURE / Unknown 09/05/2024 15:28 EST 09/05/2024 15:28 EST Christiane Munoz NP LAB INFO SERVICE AND SUPPORT & PHONE RESULT Final Result [facility] [address] [place] [address] documented in this encounter Visit Diagnoses Diagnosis Pre-procedure lab exam- Primary Pre-procedural laboratory examination Cervical high risk human papillomavirus (HPV) DNA test positive documented in this encounter Care Teams Transfer Table Operator Relationship Specialty Start Date End Date Ariana Dill DNP [address] [place] [address] PCP - General 08/07/23 Rach Waddell MD 111 [facility] [place] [facility], [facility], [address] [place] [phone] Hotel Night Auditor Obstetrics and Gynecology 05/10/23 documented as of this encounter
--- OUTSIDE RECORDS SUMMARY | 2024-11-10 02:13 | XMS_ITS | Encounter Summary ---
Author Organization [facility] Address [address] [place] [address] Care Team Providers Care Barrel Bander Name Role Phone Rach Waddell MD Unavailable [phone] Ariana Dill DNP Primary Care Provider [phone] Reason for Referral * TORNADO CHASER (Routine/Next Available) - Specialty Report Received Specialty Diagnoses / Procedures Referred By Contac t Referred To Contact Diagnoses Pelvic pressure in female Procedures US PELVIS TRANSABDOMINAL AND TRANSVAGINAL COMPLETE WITH LIMITED DUPLEX Jennifer Cheng PA-C [address] [facility] Office Building, [address] [place] [phone] Phone: tel: fax: [facility] Radiology Referral ID Status Reason Start Date Expiration Date V isits Requested Visits Authorized [id number] Specialty Report Received 07/15/2024 1 1 Reason for Visit * TORNADO CHASER (Routine/Next Available) - Specialty Report Received Specialty Diagnoses / Procedures Referred By Contac t Referred To Contact Diagnoses Pelvic pressure in female Procedures US PELVIS TRANSABDOMINAL AND TRANSVAGINAL COMPLETE WITH LIMITED DUPLEX Jennifer Chegn PA-C [address] [facility] Office Building, [address] [place] [address] Phone: tel: fax: [facility] Radiology Referral ID Status Reason Start Date Expiration Date V isits Requested Visits Authorized [id number] Specialty Report Received 07/15/2024 1 1 Encounter Details Date Type Department Care Team (Latest Contact Info) Description 08/12/2024 10:00 EDT - 08/12/2024 23:59 EDT Hospital Encounter Fiorella Salgado Ultrasound [address] [place] [address] Pelvic pressure in female Discharge Disposition: Home or Self Care Social History Tobacco Use Types Packs/Day Years [...] of Assessment Author No 01/11/2024 18:50 Karlo Clark RN * Are you blind or do [...] Date of Assessment Author Yes 02/06/2024 14:42 Leslee Victor RN documented as of this encounter Mental Status * Because of a physical, mental, or emotional condition, does this person have serious difficulty concentrating, remembering, or making decisions? Answer Entry Date Author Yes 02/20/2024 12:00 Leslee Victor RN documented in this encounter Medications at Time of Discharge albuterol 90 mcg/actuation inhaler Inhale 2 Puffs as directed every 4 hours. 1 Inhaler 0 08/10/2014 clonazePAM (KLONOPIN) 1 mg tablet Take 1 Tablet by mouth 2 times daily. 07/26/2023 d-mannose (AZO D-MANNOSE) 500 mg capsule Take 1,000 mg by mouth 2 times daily. 60 Capsule 11 07/15/2024 HYDROcodone-acet aminophen (NORCO) 5-325 mg tablet Take 1 Tablet by mouth every 8 hours as needed for Pain. 08/03/2023 hydroxychloroqui ne (PLAQUENIL) 200 mg tablet Take 1 Tablet by mouth daily. 30 Tablet 5 07/10/2024 ibuprofen (MOTRIN) 200 mg tablet Take 1 Tablet by mouth as needed. inhalational spacing device (BREATHERITE MDI SPACER) Use with a metered dose inhaler, as directed. May be dispensed with mask as appropriate.. 1 Each 0 08/10/2014 levonorgestrel-e thinyl estradiol (STARR 28) 0.15-0.03 mg per tablet Take 1 Tablet by mouth daily. 84 Tablet 4 05/17/2024 lidocaine 5 % (LIDODERM) 5 % patch APPLY 2 PATCHS ON THE SKIN ONCE DAILY UP TO 12 HOURS ON AND 12 HOURS OFF 20 Patch 1 08/21/2023 magnesium oxide (MAG-OX) 400 mg (241.3 mg magnesium) tablet Take 1 Tablet by mouth daily. 30 Tablet 04/01/2024 naproxen (NAPROSYN) 500 mg tablet Take by mouth. 02/08/2024 riboflavin, vitamin B2, 400 mg tablet Take 400 mg by mouth daily. 30 Tablet 04/01/2024 sertraline (ZOLOFT) 50 mg tablet Take 1 Tablet by mouth daily. 05/03/2024 acetaminophen (TYLENOL) 500 mg tablet Take 2 Tablets by mouth every 8 hours as needed for Pain. 180 Tablet 10/29/2021 4 documented as of this encounter Discharge Disposition Disposition Code Departure Means Destination Home or Self Care documented in this encounter Plan of Treatment Upcoming Encounters Date Type Department Care Team (Late st Contact Info) Description 11/18/2024 8:15 EST Office Visit [facility] Re[facility] Surgery - Medical Office [address] [address] Julia Terrell PA-C [address] [facility] Medical Office [facility], [address] [phone] 11/25/2024 8:00 EST Rehab Therapy Visit [facility] Rehabilitation Therapy - Medical Office [address] [phone] Cira Jackson DPT [address] [place], [place] [address] [place] [phone] 12/02/2024 8:00 EST Rehab Therapy Visit [facility] - Medical Office [address] [phone] Cira Jackson DPT [address] [place] [address] [address] [place] [phone] 12/09/2024 8:00 EST Rehab Therapy Visit [facility] - Medical Office Building [address] [place] [address] Cira Jackson DPT [address] [place] [address] [address] [place] [phone] 12/16/2024 9:00 EST Rehab Therapy Visit [facility] - Medical Office [address] [address] Cira Jackson DPT [address] [facility], [address] [place] [address] 12/23/2024 9:00 EST Rehab Therapy Visit [facility] Therapy - Medical Office Building [address], [place] [id number] Cira Jackson DPT [address] [facility], [facility], [address] [place] [address] documented as of this encounter Procedures Procedure Name Priority Date/Time Associated Diagnosis Comments US PELVIS TRANSABDOMINAL AND TRANSVAGINAL COMPLETE WITH LIMITED DUPLEX Routine 08/12/2024 11:23 EDT Pelvic pressure in female documented in this encounter Results * US PELVIS TRANSABDOMINAL AND TRANSVAGINAL COMPLETE [...] 2. Otherwise normal pelvic for age ultrasound. [id number] Narrative 08/12/2024 11:39 EDT US PELVIS TRANSABDOMINAL AND TRANSVAGINAL COMPLETE WITH LIMITED DUPLEX ??08/12/2024 11:22 AM SIGNS AND SYMPTOMS/COMMENTS: Worsening pelvic pressure/pain over the last few months. COMPARISON: Pelvic ultrasound 01/10/2024, pelvic MRI 09/07/2023. DUPLEX: Indication for Duplex: Concern for ovarian torsion and/or mass Technique: Color and spectral Doppler ultrasound of the pelvis was performed. Resulting Agency Comment [id number] Procedure Note Ty Newsome MD - 08/12/2024 US PELVIS TRANSABDOMINAL AND TRANSVAGINAL COMPLETE WITH LIMITED UVMMWD1008/12/2024 11:22 AM SIGNS AND SYMPTOMS/COMMENTS: Worsening pelvic [...] 2. Otherwise normal pelvic for age ultrasound. [id number] us Jennifer Cheng PA-C IMG US OB ORDERABLES Final Result documented in this encounter Visit Diagnoses Diagnosis Pelvic pressure in female Other specified symptom associated with female genital organs documented in this encounter Care Teams Barrel Bander Relationship Specialty Start Date End Date Ariana Dill DNP [address] [place] [id number] PCP - General 08/07/23 Rach Waddell MD [address] [place] [address], [facility] [address] [place] [phone] Informatics Physician Obstetrics and Gynecology 05/10/23 documented as of this encounter
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
--- OUTSIDE RECORDS SUMMARY | 2024-11-10 02:13 | XMS_ITS | Encounter Summary ---
Author Organization [facility] Address [address] [place] [address] Care Team Providers Care Chyron Operator Name Role Phone Rach Waddell MD Unavailable [phone] Ariana Dill DNP Primary Care Provider [phone] Reason for Referral * Consult (Routine/Next Available) - Receiving Office to Obtain Authorization Specialty Diagnoses / Procedures Referred By Zackary corea Referred To Contact Pelvic Medicine Diagnoses Mixed stress and urge urinary incontinence Bob Stark MD Phone: tel: fax: [facility] - Medical Office [facility] [address] [place] [address] Phone: tel: fax: Referral ID Status Reason Start Date Expiration Date Visits Requested Visits Authorized [id number] Receiving Office to Obtain Authorization Specialty Services Required 4 1 1 Question Answer Reason for Request: intermittent incontinence - urge mostly Reason for Visit * Reason Comments Follow-up Endometriosis Encounter Details Date Type Department Care Team (Late st Contact Info) Description 05/17/2024 11:00 EDT Office Visit [facility] - [address] [address] Bob Stark MD [address] [facility], [address] [place] [address] Mixed stress and urge urinary incontinence (Primary Dx); Discharge from the vagina Social History Tobacco Use Types Packs/Day Years [...] Sign Reading Time Taken Comments Blood Pressure 98/56 05/17/2024 1119 EDT Pulse - - Temperature - - Respiratory Rate - - Oxygen Saturation - - Inhaled Oxygen Concentration - - Weight 45 kg (99 lb 3.2 oz) 05/17/2024 1119 EDT Height - - Body Mass Index 17.58 02/06/2024 1441 EDT documented in this encounter Functional Status [...] Refills Last Filled Start Date End Date levonorgestrel-ethi nyl estradiol (STARR 28) 0.15-0.03 mg per tablet Take 1 Tablet by mouth daily. 84 Tablet 4 05/17/2024 documented in this encounter Progress Notes * Bob Stark MD - 05/17/2024 1100 EDT Subjective: Mine Lynn is a 33 y.o. woman who presents for follow up after LEEP procedure that revealed endometriosis on pathology report as well as IFRAH II removed with clear margins. Chief Complaint Patient presents with Follow-up Endometriosis HPI: Mine Lynn is a 33 y.o. woman who presents for follow up after LEEP procedure that revealed endometriosis on pathology report as well as IFRAH II removed with clear margins. She also reports daily pain for the past several years that has begun to interfere with her daily activities including working from home. She has had urgency incontinence for some time, not when coughing sneezing or working. She will be working on dinner or standing and will suddenly void. This happens most often in the days leading up to her period. She also c/o UTI symptoms for the past several months that occasionally has malodor which is new to her. She had a positive Chlamydia result 05/10/2023. She is not currently taking any forms of control. PMH: Past Medical History: Diagnosis Date Anxiety, generalized Ativan intermittently during Environmental allergies Pelvic floor dysfunction PSHX: Social History Socioeconomic History Marital status: Single Tobacco Use Smoking status: Never Passive exposure: Never Smokeless tobacco: Never Vaping Use Vaping status: Never Used Substance and Sexual Activity Alcohol use: No Comment: social Drug use: No PGYNHX: Patient's last menstrual period was 04/25/2024 (approximate). Menses: regular Every 30 days, Lasts 5 days, Flow Medium Intermenstrual bleeding: No Last Pap: 12/29/2023 Results: Atypical squamous cells Path: IFRAH 2 x2 and IFRAH 2 and 3 x1 LEEP: - High grade squamous intraepithelial lesion (IFRAH 2). - Margins negative for squamous intraepithelial lesion. - Endometriosis with tubal metaplasia. See comment. STI's:Chlamydia History of Fibroids: No History of Ovarian Cyst: No Allergies: Allergies Allergen Reactions Imitrex [Sumatriptan Succinate] Shortness Of Breath Medications: Current Outpatient Medications on File Prior to Visit Medication Sig Dispense Refill acetaminophen (TYLENOL) 500 mg tablet Take 2 Tablets by mouth every 8 hours as needed for Pain. (Patient not taking: Reported on 05/17/2024) 180 Tablet 0 albuterol 90 mcg/actuation inhaler Inhale 2 Puffs as directed every 4 hours. (Patient not taking: Reported on 05/10/2023) 1 Inhaler 0 clonazePAM (KLONOPIN) 1 mg tablet Take 1 Tablet by mouth daily. HYDROcodone-acetaminophen (NORCO) 5-325 mg tablet Take 1 Tablet by mouth every 8 hours as needed for Pain. ibuprofen (MOTRIN) 200 mg tablet Take 1 Tablet by mouth every 6 hours. inhalational spacing device (BREATHERITE MDI SPACER) Use with a metered dose inhaler, as directed. May be dispensed with mask as appropriate.. (Patient not taking: Reported on 02/14/2024) 1 Each 0 lidocaine 5 % (LIDODERM) 5 % patch APPLY 2 PATCHS ON THE SKIN ONCE DAILY UP TO 12 HOURS ON AND 12 HOURS OFF 20 Patch 1 magnesium oxide (MAG-OX) 400 mg (241.3 mg magnesium) tablet Take 1 Tablet by mouth daily. 30 Tablet0 naproxen (NAPROSYN) 500 mg tablet Take by mouth. (Patient not taking: Reported on 02/14/2024) riboflavin, vitamin B2, 400 mg tablet Take 400 mg by mouth daily. 30 Tablet 0 sertraline (ZOLOFT) 50 mg tablet Take 1 Tablet by mouth daily. No current facility-administered medications on file prior to visit. Family History: Family History Problem Relation Age of Onset Asthma Mother Hypertension Father Social History: Social History Socioeconomic History Marital status: Single Spouse name: Not on file Number of children: Not on file Years of education: Not on file Highest education level: Not on file Occupational History Not on file Tobacco Use Smoking status: Never Passive exposure: Never Smokeless tobacco: Never Vaping Use Vaping status: Never Used Substance and Sexual Activity Alcohol use: No Comment: social Drug use: No Sexual activity: Not on file Other Topics Concern Not on file Social History Narrative Not on file Social Determinants of Health Financial Strain: Not on file Food Insecurity: Not on file Transportation Needs: Not on file Physical Activity: Not on file Housing Stability: Not on file Review of Systems Constitutional: Negative. Respiratory: Negative. Genitourinary: Positive for frequency and urgency. Skin: Negative. Neurological: Negative. Psychiatric/Behavioral: Negative. BP 98/56 Wt (!) 45 kg (99 lb 3.2 oz) LMP 04/25/2024 (Approximate) BMI 17.58 kg/m?? NAD Abd soft non tender Normal vulva, vagina and cervix. No discharge, no bleeding. Normal anteverted uterus, tender to palpation without rebound or guarding. bilateral tender adnexa with no masses felt on exam Assessment/Plan Assessment: Mine Lynn is a 33 y.o. woman who presents for follow up after LEEP procedure that revealed endometriosis on pathology report as well as IFRAH II removed with negative margins.We discussed the findings of endometriosis in extensive detail at this visit. Conservative management, hormonal management including both OCP's, POPs and IUD, as well as operative management including diagnostic laparoscopy and hysterectomy was reviewed today. As she has a tissue biopsy diagnosis of endometriosis a diagnostic laparoscopy is not indicated for her. As she may want to have additional children in the future she does not wish to have a hysterectomy at this time. She has previously taken OCPs and wishes to proceed with hormonal regulation. For the incontinence symptom urgency and bladder spasms discussed. Will be placing a referral for uro-special agent secret service. For discharge symptoms we will swabher today to workup cause STI vs BV. Plan: Chronic pelvic pain and Endometriosis: Pt wishes to continue with OCP [place] and conservative management. Urgency incontinence: follow up with uro-special agent secret service, will place a referral today, ucx sent Chronic pain: appointment with pain center in August Discharge: Urine culture ordered today to workup BV vs STI - discussed treatment for PID if positive for gc/ct. Follow up in 3 months to evaluate improvement Randy Francisco 05/17/2024 12:22 I was present for the history and physical portion of the visit - agree with Randy Francisco's note above. Bob Stark MD 05/17/24 12:32 documented in this encounter Miscellaneous Notes * Addendum Note - Bob Stark MD - 05/17/2024 1100 EDTAddended by: BOB STARK on: 05/17/2024 13:24 Modules accepted: Orders documented in this encounter Plan of Treatment Upcoming Encounters Date Type Department Care Team (Late st Contact Info) Description 11/18/2024 8:15 EST Office Visit [facility] - Medical Office [facility] [address] [place] [id number] Julia Terrell PA-C [address] [place] [address] Medical Office [facility], [address] [place] [phone] 11/25/2024 8:00 EST Rehab Therapy Visit [facility] - Medical Office [address] [place] [address] Cira Jackson DPT [address] [place] [address] [address] [place] [phone] 12/02/2024 8:00 EST Rehab Therapy Visit [facility] - Medical Office Building [address] [place] [address] Cira Jackson DPT [address] [place] [address], [address] [place] [phone] 12/09/2024 8:00 EST Rehab Therapy Visit [facility] - Medical Office [address] [place] [address] Cira Jackson, ROBERTO [address] [place] [address], [facility], [address] [place] [phone] 12/16/2024 9:00 EST Rehab Therapy Visit [facility] - Medical Office Building [address] [place] [address] Cira Jackson DPT [address] [place] [address], [facility], [address] [place] [phone] 12/23/2024 9:00 EST Rehab Therapy Visit [facility] - Medical Office [address] [address] Cira Jackson DPT [address] [place] [address], [facility], [address] [place] [phone] Scheduled Referrals Name Type Priority Associated Diagnoses Order Schedule AMB CONS/FOLLOW UP PELVIC MEDICINE Outpatient Referral Routine/Next Available Mixed stress and urge urinary incontinence Expected: 05/24/2024 (Approximate), Expires: 05/17/2025 documented as of this encounter Procedures Procedure Name Priority Date/Time Associated Diagnosis Comments VAGINAL CTGC AND VAGINITIS/VAGINOSI S MOLECULAR DETECTION Routine 05/17/2024 13:11 EDT Discharge from the vagina BACTERIAL CULTURE, URINE Routine 05/17/2024 13:02 EDT Mixed stress and urge urinary incontinence documented in this encounter Results * VAGINAL CTGC AND VAGINITIS/VAGINOSIS MOLECULAR DETECTION (05/17/2024 13:11 EDT) Celi glabrata Negative Negative 05/18/2024 12:27 EDT [facility] Trichomonas Vaginalis Negative Negative 05/18/2024 12:27 EDT [facility] BV (Bacterial vaginosis) Negative Negative 05/18/2024 12:27 EDT [facility] Neisseria gonorrhoeae Result Negative Negative 05/18/2024 12:27 EDT [facility] Chlamydia trachomatis Result Negative Negative 05/18/2024 12:27 EDT [facility] Celi Species Negative Negative 12:27 EDT [facility] Swab VAGINAL STRUCTURE / Unknown Swab / Unknown 05/17/2024 13:11 EDT 05/17/2024 14:35 EDT us Bob Stark MD MICROBIOLOGY - GENERAL ORD ERABLES Final Result [facility] [address] [place] [address] * (ABNORMAL) BACTERIAL CULTURE, URINE (05/17/2024 13:02 EDT) Organism ID Greater than 100,000 CFU/ml Escherichia coli(A) VITEK SUSCEPTIBILITY 05/19/2024 10:47 EDT [facility] Comment: Use of cefazolin is [...] only cefpodoxime and cephalexin are on the [facility] inpatient formulary. ? Urine URINE SPECIMEN OBTAINED BY CLEAN CATCH PROCEDURE / Unknown Urine Collect / Unknown 05/17/2024 13:02 EDT 05/17/2024 14:35 EDT Narrative Organism Antibiotic Method Susceptibility Escherichia coli Ampicillin VITEK SUSCEPTIBILITY 16 ug/mL: Intermediate Escherichia coli Cefazolin VITEK SUSCEPTIBILITY <=4 ug/mL: Susceptible Escherichia coli Cefepime VITEK SUSCEPTIBILITY <=1 ug/mL: Susceptible Escherichia coli Ceftriaxone VITEK SUSCEPTIBILITY <=1 ug/mL: Susceptible Escherichia coli Ciprofloxacin VITEK SUSCEPTIBILITY <=0.25 ug/mL: Susceptible Escherichia coli Ertapenem VITEK SUSCEPTIBILITY <=0.5 ug/mL: Susceptible Escherichia coli Meropenem VITEK SUSCEPTIBILITY <=0.25 ug/mL: Susceptible Escherichia coli Nitrofurantoin VITEK SUSCEPTIBILITY 32 ug/mL: Susceptible Escherichia coli Piperacillin Tazobactam VITEK SUSCEPT IBILITY <=4 ug/mL: Susceptible Escherichia coli Trimethoprim-Sulfame thox azole VITEK SUSCEPTIBILITY <=20 ug/mL: Susceptible us Bob Stark MD MICROBIOLOGY - GENERAL ORD ERABLES Final Result [facility] [address] [place] [address] documented in this encounter Visit Diagnoses Diagnosis Mixed stress and urge urinary incontinence- Primary Mixed incontinence urge and stress (male)(female) Discharge from the vagina Leukorrhea, not specified as infective documented in this encounter Historical Medications * This list may reflect changes made after this encounter. sertraline (ZOLOFT) 50 mg tablet Take 1 Tablet by mouth daily. 05/03/2024 HYDROcodone-aceta minophen (NORCO) 5-325 mg tablet Take 1 Tablet by mouth every 8 hours as needed for Pain. 08/03/2023 added in this encounter Care Teams Chyron Operator Relationship Specialty Start Date End Date Ariana Dill DNP [address] [place] [address] PCP - General 08/07/23 Rach Waddell MD 111 [facility], [address] [place] [phone] Sales Representative Printing Supplies Obstetrics and Gynecology 05/10/23 documented as of this encounter
--- OUTSIDE RECORDS SUMMARY | 2024-11-10 02:13 | XMS_ITS | Encounter Summary ---
Author Organization [facility] Address [address] [place] [address] Care Team Providers Care Baby Attendant Name Role Phone Rach Waddell MD Unavailable [phone] Ariana Dill DNP Primary Care Provider [phone] Reason for Referral * Consult (Routine/Next Available) - Authorization Not Required Specialty Diagnoses / Procedures Referred By Contac t Referred To Contact Psychiatry Diagnoses Low back pain, unspecified back pain laterality, unspecified chronicity, unspecified whether sciatica present Tony Schulte MD [address] [place] [address] [place] [address] Phone: tel: fax: [facility] Comprehensive Pain Program - [facility] [place] [address] Phone: tel: fax: Referral ID Status Reason Start Date Expiration Date Visits Requested Visits Authorized [id number] Authorization Not Required Specialty Services Required 4 1 1 Question Answer Diagnostic or therapeutic challenges: Chronic pain with no surgical target and minimal relief from injections Relevant diagnostic studies: Xray, MRI Indicate therapeutic interventions (i.e. medication, surgery, interventional approaches): KIRTI, OTC medications Reason for Request: Chronic back pain Encounter Details Date Type Department Care Team (Late st Contact Info) Description 04/12/2024 Orders Only [facility] Spine Program - [facility] [address] [place], [place] [phone] Tony Schulte MD [address] [facility] [place] [address] Low back pain, unspecified back pain laterality, unspecified chronicity, unspecified whether sciatica present (Primary Dx) Social History Tobacco Use Types [...] of Assessment Author No 01/11/2024 18:50 Karlo Clakr RN * Are you blind or do [...] Leslee Victor RN documented in this encounter Plan of Treatment Upcoming Encounters Date Type Department Care Team (Late st Contact Info) Description 11/18/2024 8:15 EST Office Visit [facility] Pelvic Medicine and Reconstructive Surgery - Medical Office Building [facility] [address] [place] [address] Julia Terrell PA-C [address] [facility] Medical Office Building, [address] [place] [phone] 11/25/2024 8:00 EST Rehab Therapy Visit [facility] Rehabilitation Therapy - Medical Office [address] [place] [address] Cira Jackson DPT [address] [place] [address], [address] [place] [phone] 12/02/2024 8:00 EST Rehab Therapy Visit [facility] Rehabilitation Therapy - Medical Office [address] [place] [address] Cira Jackson DPT [address] [place] [address], [address] [place] [phone] 12/09/2024 8:00 EST Rehab Therapy Visit [facility] Rehabilitation Therapy - Medical Office [address] [place] [address] Cira Jackson, ROBERTO [address] [place] [address], [address] [place] [phone] 12/16/2024 9:00 EST Rehab Therapy Visit [facility] Rehabilitation Therapy - Medical Office [address] [place] [address] Cira Jackson, KEMALT [address] [facility], [facility], [address] [place] [phone] 12/23/2024 9:00 EST Rehab Therapy Visit [facility] Rehabilitation Therapy - Medical Office [address] [place] [address] Cira Jackson, ROBERTO [address] [facility], [facility], [address] [place] [phone] Scheduled Referrals Name Type Priority Associated Diagnoses Order Schedule AMB CONS/FOLLOW UP COMPREHENSIVE PAIN PROGRAM Outpatient Referral Routine/Next Available Low back pain, unspecified back pain laterality, unspecified chronicity, unspecified whether sciatica present Expected: 05/12/2024 (Approximate), Expires: 04/12/2025 documented as of this encounter Visit Diagnoses Diagnosis Low back pain, unspecified back pain laterality, unspecified chronicity, unspecified whether sciatica present- Primary documented in this encounter Care Teams Baby Attendant Relationship Specialty Start Date End Date Ariana Dill DNP [address] [place] [address] PCP - General 08/07/23 Rach Waddell MD [address] [place] [address], [address] [place] [phone] Human Relations Professor Obstetrics and Gynecology 05/10/23 documented as of this encounter
--- OUTSIDE RECORDS SUMMARY | 2024-11-10 02:13 | XMS_ITS | Encounter Summary ---
Author Organization [facility] Address [address] [place] [address] Care Team Providers Care Audiology Assistant Name Role Phone Rach Waddell MD Unavailable [phone] Ariana Dill DNP Primary Care Provider [phone] Reason for Visit * Reason Onset Date Comments Appointment Related 08/22/2024 Encounter Details Date Type Department Care Team (Late st Contact Info) Description 08/22/2024 Telephone [facility] Rehabilitation Therapy - Medical Office Building [address] [place] [address] Therapy, Outpatient, Appointment Related Social History Tobacco Use Types Packs/Day Years [...] Date of Assessment Author No 10/27/2021 8:27 oLis Vega RN * Do you have difficulty [...] encounter Miscellaneous Notes * Telephone Encounter - Jessica Krishnan - 08/22/2024 0784 EDT [facility] - MEDICAL OFFICE BUILDING [address] [place] [address] Telephone Intake Information for Scheduling NEW Patients for Therapy Scheduling Information: N/A Physical Therapy Referral Link: Referral for Mixed stress and urge urinary incontinence (07/15/2024) IF PRIMARY OR SECONDARY INSURANCE IS NOT LISTED, CHOOSE WILDCARD: [place] - REFERRAL REQUIRED. Have you been seen for PT/OT/DEAF INTERPRETER services since October of this year? No, Medicaid will cover 30 therapy visits (PT/OT/DEAF INTERPRETER combined) between OCT 23 and OCT 22 of this year. Secondary Insurance: None Jessica Krishnan 08/22/2024 documented in this encounter Plan of Treatment Upcoming Encounters Date Type Department Care Team (Late st Contact Info) Description 11/18/2024 8:15 EST Office Visit [facility] Pelvic Medicine and Reconstructive Surgery - Medical Office Building [facility] [address] [place] [address] Julia Terrell PA-C 2 [facility] Medical Office Building, [address] [place] [phone] 11/25/2024 8:00 EST Rehab Therapy Visit [facility] Rehabilitation Therapy - Medical Office [address] [place] [address] Cira Jackson, DPT [address] [place] [address], [facility], [address] [place] [phone] 12/02/2024 8:00 EST Rehab Therapy Visit [facility] Rehabilitation Therapy - Medical Office [address] [place] [address] Cira Jackson, DPT [address] [place] [address], [facility], [address] [place] [phone] 12/09/2024 8:00 EST Rehab Therapy Visit [facility] Rehabilitation Therapy - Medical Office [address] [place] [address] Cira Jackson, DPT [address] [place] [address], [facility], [address] [place] [phone] 12/16/2024 9:00 EST Rehab Therapy Visit [facility] Rehabilitation Therapy - Medical Office Building [address] [place] [address] Cira Jackson, DPT [address] [place] [address], [facility], [address] [place] [phone] 12/23/2024 9:00 EST Rehab Therapy Visit [facility] Rehabilitation Therapy - Medical Office Building [address] [place], [place] [address] Cira Jackson, DPT [address] [facility], [facility], [address] [place] [phone] documented as of this encounter Visit Diagnoses Not on filedocumented in this encounter Care Teams Audiology Assistant Relationship Specialty Start Date End Date Ariana Dill DNP [address] [place] [address] PCP - General 08/07/23 Rach Waddell MD [address] [facility], [facility], [address] [place] [phone] Real Estate Leasing Agent Obstetrics and Gynecology 05/10/23 documented as of this encounter
--- OUTSIDE RECORDS SUMMARY | 2024-11-10 02:13 | XMS_ITS | Encounter Summary ---
Author Organization [facility] Address [address] [place] [address] Care Team Providers Care Delivery Route Driver Name Role Phone Rach Waddell MD Unavailable Ariana Dill DNP Primary Care Provider [phone] Reason for Visit * Reason Onset Date Comments Appointment Related 07/10/2024 5 MO Follow Up Encounter Details Date Type Department Care Team (Late st Contact Info) Description 07/10/2024 Telephone [facility] Rheumatology & Immunology - [address] [address] Seymour Kang MD [address] [facility], [address] [place] [address] Appointment Related (5 MO Follow Up) Social History Tobacco Use Types Packs/Day Years [...] Date of Assessment Author No 10/27/2021 8:27 Lios Vega RN * Do you have serious [...] encounter Miscellaneous Notes * Telephone Encounter - Lupe Craig - 07/10/2024 8711 EDT Reason for Call: Appointment Related (5 MO Follow Up) Summary/Symptoms: Reason for call: Follow Up Appointment Left message to call back to schedule follow up appointment with Dr. Kang Patient is due on or after 12.10.2024 First Call- Please schedule patient from the recall. Lupe Craig 07/10/2024 17:53 documented in this encounter Plan of Treatment Upcoming Encounters Date Type Department Care Team (Late st Contact Info) Description 11/18/2024 8:15 EST Office Visit [facility] Pelvic Medicine and Reconstructive Surgery - Medical Office [address] [address] Julia Terrell PA-C 2 [facility] Medical Office Building, [address] [place] [phone] 11/25/2024 8:00 EST Rehab Therapy Visit [facility] Rehabilitation Therapy - Medical Office Building [address] [place] [address] Cira Jackson, DPT [address] [place] [address], [facility], [address] [place] [phone] 12/02/2024 8:00 EST Rehab Therapy Visit [facility] Rehabilitation [facility] - Medical Office Building [address] [place] [address] Cira Jackson, ROBERTO [address] [place] [address], [address] [place] [phone] 12/09/2024 8:00 EST Rehab Therapy Visit [facility] Rehabilitation Therapy - Medical Office Building [address] [place] [address] Cira Jackson, DPT [address] [place] [address], [facility], [address] [place] [phone] 12/16/2024 9:00 EST Rehab Therapy Visit [facility] Rehabilitation Therapy - Medical Office Building [address] [place] [address] Cira Jackson, KEMALT [address] [place] [address], [facility], [address] [place] [phone] 12/23/2024 9:00 EST Rehab Therapy Visit [facility] Rehabilitation Therapy - Medical Office Building [address] [place] [id number] Cira Jackson, DPT [address] [facility], [facility], [address] [place] [address] documented as of this encounter Visit Diagnoses Not on filedocumented in this encounter Care Teams Delivery Route Driver Relationship Specialty Start Date End Date Ariana Dill DNP [address] [place] [address] PCP - General 08/07/23 Rach Waddell MD [address] [place] [address], [facility], [address] [place] [phone] Pulp Cooker Obstetrics and Gynecology 05/10/23 documented as of this encounter
--- OUTSIDE RECORDS SUMMARY | 2024-11-10 02:13 | XMS_ITS | Encounter Summary ---
Author Organization [facility] Address [address] [place] [address] Care Team Providers Care Housing Grant Analyst Name Role Phone Rach Waddell MD Unavailable [phone] Ariana Dill DNP Primary Care Provider [phone] Reason for Visit * Reason Comments Ankle Pain Pt fell down 5 steps twisting right ankle yesterday. Swollen and bruised. 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 [address] [place] [address] Sprain of right foot, initial encounter (Primary Dx) Discharge Disposition: Home or Self Care Social [...] Sign Reading Time Taken Comments Blood Pressure 96/50 09/29/2024 1246 EST Pulse 76 09/29/2024 1246 EST Temperature 36.6 ??C (97.9 ??F) 09/29/2024 1246 EST Respiratory Rate 18 09/29/2024 1246 EST Oxygen Saturation 98% 09/29/2024 1246 EST Inhaled Oxygen Concentration - - Weight 47.6 kg (105 lb) 09/29/2024 1017 EST Height 160 cm (5' 3) 09/29/2024 1017 EST Body Mass Index 18.6 09/29/2024 1017 EST documented in this encounter Functional Status * Are you deaf or do you have serious difficulty hearing? Answer Date of Assessment Author No 09/29/2024 10:15 EST Ab slim Francois RN * Are you blind or do you have serious difficulty seeing, even when wearing glasses? Answer Date of Assessment Author No 10/27/2021 8:27 EST Lois Deal RN * Do you have serious difficulty walking or climbing stairs? (5 years old or older) Answer Date of Assessment Author No 10/27/2021 8:27 EST Lois Deal RN * Do you have difficulty dressing [...] Leslee Deal RN documented in this encounter Discharge Instructions * Discharge Instructions* Marlene Nye PA-C - 09/29/2024 11:38 EST You are seen in the Emergency Department after your fall. Continue to take ibuprofen as directed aswell as your prescription for your pain medications Would recommend ice 20 minutes at a time every 3-4 hours You can wrap the area as well with an Don wrap Follow up with your PCP as needed Return to the emergency department with any new or worsening symptoms including but not limited to worsening pain or any other symptoms that are concerning to you * Attachments The following attachments cannot be sent through Care Everywhere. * Foot Sprain (Wallisian) documented in this encounter Medications at Time of Discharge acetaminophen (TYLENOL) 500 mg tablet Take 2 Tablets by mouth every 8 hours as needed for Pain. 30 Tablet 09/29/2024 albuterol 90 mcg/actuation inhaler Inhale 2 Puffs [...] Take 1 Tablet by mouth daily. 05/03/2024 venlafaxine (EFFEXOR-XR) 37.5 mg XR capsule Take by mouth. 08/20/2024 documented as of this encounter Ordered Prescriptions Prescription Sig Dispense Quantity Refills Last Filled Start Date End Date acetaminophen (TYLENOL) 500 mg tablet Take 2 Tablets by mouth every 8 hours as needed for Pain. 30 Tablet 09/29/2024 documented in this encounter Discharge Disposition Disposition Code Departure Means Destination Comment s Home or Self [facility] documented in this encounter ED Notes * Marlene Nye PA-C - 09/29/[address] [facility] Emergency Department Note Emergency Department Visit Medical Decision Making This is a 33 y.o. female otherwise healthy presenting with ankle pain. Vital signs are stable. On exam she has full range of motion of the ankle, tenderness along the proximal aspect of the fifth MTP. Differential diagnosis includes: Ligamentous injury, fracture, less likely dislocation. Will obtain x-ray, provide analgesia, observe and reassess. Medical Decision Making Problems Addressed: Sprain of right foot, initial encounter: complicated acute illness or injury Amount and/or Complexity of Data Reviewed Radiology: ordered. Decision-making details documented in ED Course. Risk OTC drugs. Prescription drug management. Imaging XR FOOT RIGHT 3 OR MORE VIEWS Final Result XR ANKLE RIGHT 3 OR MORE VIEWS Final Result No acute fracture or dislocation. [id number] ED Course Relevant Data as of 09/29/24 1218 Sun Sep 29, 2024 1059 Xray obtained and independently reviewed. No fracture noted. Formal read is pending. [AC] 1218 XR ANKLE RIGHT 3 OR MORE VIEWS [AC] 1218 XR FOOT RIGHT 3 OR MORE VIEWS Recommended NSAIDs, ice, elevation, and PCP follow-up as needed. Patient was also provided with crutches. [AC] Relevant Data User Index [AC] Marlene Nye PA-C The following problems were addressed: Final diagnoses: Sprain of right foot, initial encounter Chief complaint: right ankle pain HPI Mine Lynn is a 33 y.o. female who presents to the Emergency Department for right ankle pain. Patient reports that yesterday fell down 5 stairs while holding her child and twisted her ankle. Since then has had worsening pain. She normally takes Percocet and 800 of ibuprofen daily for chronic back and pelvic pain. She denies any head strike or loss of consciousness. No neck or back pain. Having difficulty putting weight on the lateral aspect of the foot. History was provided by: patient Patient's pertinent PMH, FH, SH were reviewed and edited as necessary. Physical Exam Patient Vitals for the past 24 hrs: BP Temp Temp src Pulse Resp SpO2 Height Weight 09/29/24 1017 114/84 36.9 ??C (98.4 ??F) Oral 91 17 100 % 160 cm (63) 47.6 kg (105 lb) A medical screening exam was performed. Physical Exam General: Awake, in no acute distress. HEENT: Normocephalic, atruamatic. EOMI. Nares patent. Neck: Supple, full ROM. Pulmonary: Lungs clear to auscultation bilaterally. No wheezes, rales, or rhonchi. Chest wall non-tender to palpation. Cardiovascular: Regular rhythm and rate. No murmur, rub, or gallop. GI: Abdomen soft, non-tender, non-distended. No rebound or guarding. MSK: Normal ROM of upper extremities. No tenderness all around the knee. Knee in full flexion and extension. Full ankle range of motion although there is some pain along the lateral malleolus. Tenderto palpation along the fifth MTP Skin: ecchymosis along 5th MTP Neuro: Sensation to light touch intact. 5/5 motor strength throughout. Psych: Normal mood and affect. Disposition: Home documented in this encounter Plan of Treatment Upcoming Encounters Date Type Department Care Team (Late st Contact Info) Description 11/18/2024 8:15 EST Office Visit [facility] Pelvic Medicine and Reconstructive Surgery - Medical Office Building [facility] [address] [place] [address] Julia Terrell PA-C [address] [place] [address] [facility], [address] [place] [phone] 11/25/2024 8:00 EST Rehab Therapy Visit [facility] Rehabilitation Therapy - Medical Office Building [address] [place] [address] Cira Jackson, DPT [address] [place] [address], [facility], [address] [place] [phone] 12/02/2024 8:00 EST Rehab Therapy Visit [facility] Rehabilitation Therapy - Medical Office Building [address] [place] [address] Cira Jackson, KEMALT [address] [place] [address], [facility], [address] [place] [phone] 12/09/2024 8:00 EST Rehab Therapy Visit [facility] Rehabilitation Therapy - Medical Office Building [address] [place] [address] Cira Jackson, KEMALT [address] [place] [address], [facility], [address] [place] [phone] 12/16/2024 9:00 EST Rehab Therapy Visit [facility] Rehabilitation Therapy - Medical Office Building [address] [place] [address] Cira Jackson, DPT [address] [place] [address], [facility], [address] [place] [phone] 12/23/2024 9:00 EST Rehab Therapy Visit [facility] Rehabilitation Therapy - Medical Office Building [address] [place] [address] Cira Jackson, DPT [address] [place] [address], [facility], [address] [place] [phone] documented as of this encounter Procedures Procedure Name Priority Date/Time Associated Diagnosis Comments XR FOOT RIGHT 3 OR MORE VIEWS STAT 09/29/2024 11:10 EST XR ANKLE RIGHT 3 OR MORE VIEWS STAT 09/29/2024 10:58 EST documented in this encounter Results * XR FOOT RIGHT 3 OR MORE [...] bones and soft tissues are otherwise unremarkable. [id number] Resulting Agency Comment [id number] Procedure Note Alexander Mendez MD - 09/29/2024 [...] Imaged bones and soft tissues are otherwiseunremarkable. [id number] us Marlene Nye PA-C [facility] Final Result * XR ANKLE RIGHT 3 OR MORE VIEWS (09/29/2024 10:58 EST) Anatomical Region Laterality Modality Lower Extremities, Ankle Right Compute d Radiography 09/29/2024 11:3 6 EST Impressions 09/29/2024 11:36 EST No acute fracture or dislocation. [id number] Narrative 09/29/2024 11:36 EST XR ANKLE RIGHT [...] tissues are otherwise unremarkable. Resulting Agency Comment [id number] Procedure Note Alexander Mendez MD - 09/29/2024 [...] otherwiseunremarkable. IMPRESSION No acute fracture or dislocation. [id number] us Marlene Nye PA-C [facility] Final Result documented in this encounter Visit Diagnoses Diagnosis Sprain of right foot, initial encounter- Primary documented in this encounter Administered Medications Inactive Administered Medications - up to 3 most recent administrations Medication Order MAR Action Action Date Dose Rate Site acetaminophen (TYLENOL) tablet 1,000 mg 1,000 mg, oral, NOW X1, 1 dose, On 09/29/24 at 1045, STAT Given 09/29/2024 11:22 EST 1,000 mg morphine (MS IR) tablet 15 mg 15 mg, oral, NOW X1, 1 dose, On 09/29/24 at 1045, STAT Given 09/29/2024 11:22 EST 15 mg documented in this encounter Discontinued Medications Medication Sig Discontinue Reason Start Date End Da te acetaminophen (TYLENOL) 500 mg tablet Take 2 Tablets by mouth every 8 hours as needed for Pain. 10/29/2021 09/29/2024 documented as of this encounter Active and Recently Administered Medications Times are shown in EST. Scheduled Medication Order 09/27/2024 09/28/2024 09/29/2024 acetaminophen (TYLENOL) tablet 1,000 mg (COMPLETED) 1,000 mg, oral, NOW X1, 1 dose, On 09/29/24 at 1045, STAT 1122 (Given - Provid er: Stephany Gold RN) morphine (MS IR) tablet 15 mg (COMPLETED) 15 mg, oral, NOW X1, 1 dose, On 09/29/24 at 1045, STAT 1122 (Given - Provid er: Stephany Gold RN) documented in this encounter Care Teams Housing Grant Analyst Relationship Specialty Start Date End Date Ariana Dill DNP [address] [place] [id number] PCP - General 08/07/23 Rach Waddell MD [address] [place] [address], [address] [place] [phone] Cold Rolling Supervisor Obstetrics and Gynecology 05/10/23 documented as of this encounter
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
--- OUTSIDE RECORDS SUMMARY | 2024-11-10 02:13 | XMS_ITS | Encounter Summary ---
Author Organization [facility] Address [address] [place] [address] Care Team Providers Care Advanced Nursing Professor Name Role Phone Rach Waddell MD Unavailable Ariana Dill DNP Primary Care Provider [phone] Reason for Visit * Reason Comments Back Pain Encounter Details Date Type Department Care Team (Latest Contact Info) Description 08/15/2024 13:00 EDT Telemedicine [facility] Interventional Pain [address] [facility] [place] [address] Cheri Russell PA-C [address] [facility] [address] [place] [address] Lumbar radiculopathy, chronic (Primary Dx) Social History Tobacco Use Types [...] documented in this encounter Progress Notes * Cheri Russell PA-C - 08/15/2024 1300 EDT The concept of ???Telemedicine?? has been described [...] copays, deductible or coinsurance for this service. TELEMEDICINE VIDEO VISIT Today's visit was provided through telemedicine video conferencing: I have reviewed the appropriateness of using video technology with the patient with regards to today's visit. The location of the patient : Home (where patient lives) The location of the provider: Office The following people and their roles were present for today's visit: Appointment Provider: Cheri Russell PA-C Laura Michelle Weiland, PA-C [facility] - [facility] Outpatient PAIN Follow up Patient Name: Mine Lynn : 1990 Date of Service: 08/15/2024 Primary Care Physician: Ariana Dill NP Chief complaint: Chief Complaint Patient presents with Back Pain History of Present Illness/Pain complaint: This is a 33 y.o. female who presents for follow up. Please see my last consultation note by me on 12/18/2023. She notes pain is located in the mid back with radiation into the right leg. She had pain for at least a couple years. She describes the pain as an achy and sometimes sharp pain. Aggravating factors include prolong sitting, standing, and walking. Laying down makes the pain better. She underwent a lumbar epidural L5-S1 which helped about 60% for about 4 months. Pain score today 6/10. Patient currently denies any bowel and/or bladder incontinence, progressive weakness, saddle numbness, unexplained fever, trauma or unexplained weight loss. Prior interventional pain procedures and response include: [facility]: 02/14/2024: Lumbar epidural steroid injections at L5 S1 - 60% relief for 4 months. Conservative treatment Physical [facility]: [facility] She has done chiropractor care aswell with no relief in symptoms. Home regimen: She continues at home exercises Medications associated with chronic pain: Previous: Gabapentin -no great relief Current: Hydrocodone PRN Anticoagulation: none Imaging/Test Review MRI lumbar spine 09/07/2023: FINDINGS: SURGICAL CHANGES: None. ALIGNMENT: Normal. BONES: No significant vertebral body height loss. No concerning lesions. INTERVERTEBRAL DISCS: Mild disc space narrowing at L5-S1 with disc desiccation. SPINAL CANAL: The conus terminates normally. No abnormality of the cauda equina. No fluid collections. VISIBLE EXTRASPINAL SOFT TISSUES: Unremarkable. EVALUATION BY LEVEL: L1-L2 through L4-5: No disc herniation, spinal canal stenosis or neuroforaminal narrowing. Facet arthropathy at L4-5. L5-S1: Mild diffuse annular disc bulge with a central/right paracentral disc extrusion with superior and inferior migration measuring 19 x 7 x 15 mm (TV by AP by CC) contributes to mild spinal canal stenosis with abutment and mass effect on the traversing right S1 nerve root within the subarticularrecess. Mild left and no right neuroforaminal narrowing. IMPRESSION Large central/right paracentral disc extrusion at L5-S1 abuts the traversing right S1 nerve root within the subarticular recess with mild spinal canal stenosis. Additional mild left neuroforaminal narrowing at this level. No other significant degenerative changes in the lumbar spine. Past medical history, social history and family history were reviewed in EMR today. Review of Systems A 10 point review of system was performed and reviewed. Pertinent positives have been included in HPI and past medical history. All others negative. Physical Examination General: Pleasant, cooperative, mood and affect are appropriate. Neuro: Alert and oriented to person, place, time and purpose. Posture: good posture Assessment and Plan Encounter Diagnoses Name Primary? Lumbar radiculopathy, chronic Yes Interventional Plan: Recommend proceeding with repeat lumbar epidural L5-S1 every 3-4 months PRN for pain. Regarding the above interventions, the patient has been educated regarding the risks (including bleeding, infection, increased pain, nerve damage, or allergic reaction), benefits, and alternatives. The patient states he/she understands and is eager to proceed. Non- Interventional Plan: Continue at home exercises. Cheri Russell PA-C Interventional Pain Medicine [facility] 08/15/24 I spent a total of 20 minutes on the date of this encounter meeting with the patient and reviewing documentation/coordinating care as described in the above note. Dr. Power was the attending physician available in the clinic today if needed. A consultation was not required. documented in this encounter Plan of Treatment Upcoming Encounters Date Type Department Care Team (Late st Contact Info) Description 11/18/2024 8:15 EST Office Visit [facility] Pelvic Medicine and Reconstructive Surgery - Medical Office Building [facility] [address] [place] [address] Julia Terrell PA-C [address] [place] [address] Medical Office [facility], [address] [phone] 11/25/2024 8:00 EST Rehab Therapy Visit [facility] Rehabilitation Therapy - Medical Office Building [address] [place] [address] Cira Jackson, DPT [address] [place] [address], [facility], [address] [place] [phone] 12/02/2024 8:00 EST Rehab Therapy Visit [facility] Rehabilitation Therapy - Medical Office Building [address] [place] [address] Cira Jackson, ROBERTO [address] [place] [address], [facility], [address] [place] [phone] 12/09/2024 8:00 EST Rehab Therapy Visit [facility] Rehabilitation Therapy - Medical Office Building [address] [place] [address] Cira Jackson, KEMALT [address] [place] [address], [facility], [address] [place] [phone] 12/16/2024 9:00 EST Rehab Therapy Visit [facility] Rehabilitation Therapy - Medical Office Building [address] [place] [address] Cira Jackson, DPT [address] [place] [address], [facility], [address] [place] [phone] 12/23/2024 9:00 EST Rehab Therapy Visit [facility] Rehabilitation Therapy - Medical Office Building [address] [place] [address] Cira Jackson, DPT [address] [place] [address], [facility], [address] [place] [phone] documented as of this encounter Visit Diagnoses Diagnosis Lumbar radiculopathy, chronic- Primary Thoracic or lumbosacral neuritis or radiculitis, unspecified documented in this encounter Care Teams Advanced Nursing Professor Relationship Specialty Start Date End Date Ariana Dill DNP [address] [place] [address] PCP - General 08/07/23 Rach Waddell MD [address] [facility], [address] [place] [address] Financial Reporting Specialist Obstetrics and Gynecology 05/10/23 documented as of this encounter
--- OUTSIDE RECORDS SUMMARY | 2024-11-10 02:13 | XMS_ITS | Encounter Summary ---
Author Organization [facility] Address [address] [place] [address] Care Team Providers Care Guide Rail Cleaner Name Role Phone Rach Waddell MD Unavailable Ariana Dill DNP Primary Care Provider [phone] Reason for Visit * Reason Onset Date Comments Appointment Related 08/15/2024 Encounter Details Date Type Department Care Team (Late st Contact Info) Description 08/15/2024 Telephone [facility] - Interventional Pain [address] [facility] [address] Cheri Russell PA-C [address] [facility] [address] [place] [address] Appointment Related Social History Tobacco Use Types [...] encounter Miscellaneous Notes * Telephone Encounter - Ilsa Carmichael - 08/15/2024 1016 EDT Called and left message for patient regarding change to appointment. Due to Provider family emergency and needs to leave early and need to change appointment from 08/15/24 to 08/15/24 at 1:00 PM witharrival time of 12:30PM and we are able to switch to televideo if patient is wanting to switch. Asked patient to call back to confirm message documented in this encounter Plan of Treatment Upcoming Encounters Date Type Department Care Team (Late st Contact Info) Description 11/18/2024 8:15 EST Office Visit [facility] Pelvic Medicine and Reconstructive Surgery - Medical Office [address] [address] Julia Terrell PA-C [address] [facility] Medical Office Building, [address] [place] [phone] 11/25/2024 8:00 EST Rehab Therapy Visit [facility] Rehabilitation Therapy - Medical Office Building [address] [place] [address] Cira Jackson, ROBERTO [address] [place] [address], [facility], [address] [place] [phone] 12/02/2024 8:00 EST Rehab Therapy Visit [facility] Rehabilitation [facility] - Medical Office Building [address] [place], [place] [address] Cira aJckson, ROBERTO [address] [place] [address], [address] [place] [phone] 12/09/2024 8:00 EST Rehab Therapy Visit [facility] Rehabilitation Therapy - Medical Office Building [address] [place], [place] [address] Cira Jackson, ROBERTO [address] [place] [address], [facility], [address] [place] [phone] 12/16/2024 9:00 EST Rehab Therapy Visit [facility] Rehabilitation Therapy - Medical Office Building [address] [place] [address] Cira Jackson DPT [address] [place] [address], [facility], [address] [place] [phone] 12/23/2024 9:00 EST Rehab Therapy Visit [facility] Rehabilitation Therapy - Medical Office Building [address] [place] [phone] Cira Jackson DPT [address] [facility], [facility], [address] [place] [address] documented as of this encounter Visit Diagnoses Not on filedocumented in this encounter Care Teams Guide Rail Cleaner Relationship Specialty Start Date End Date Ariana Dill DNP [address] [place] [address] PCP - General 08/07/23 Rach Waddell MD [address] [facility], [facility], [address] [place] [phone] Boilermaker Apprentice Obstetrics and Gynecology 05/10/23 documented as of this encounter
--- OUTSIDE RECORDS SUMMARY | 2024-11-10 02:13 | XMS_ITS | Encounter Summary ---
Author Organization [facility] Address [address] [place] [address] Care Team Providers Care Chief Dispatcher Service Name Role Phone Rach Waddell MD Unavailable Ariana Dill DNP Primary Care Provider [phone] Reason for Visit * Reason Comments Cough Approx 5 days of cou gh, bilateral ear pain, cervical lymph node swelling, sore throat, sinus congestion. Taking apap/ibu together, took hydrocodone, benadryl, albuteral. Negative covid test recently. Encounter Details Date Type Department Care Team (Latest Contact Info) Description 10/12/2024 17:52 EST - 10/12/2024 18:38 EST Hospital Encounter [facility] - [address] [address] Stas Parrish MD [address] [place] [address] [phone] Upper respiratory tract infection, unspecified type (Primary Dx); Sore throat; Acute pharyngitis, unspecified etiology; Influenza-like illness; Non-recurrent acute suppurative otitis media of left ear without spontaneous rupture of tympanic membrane Discharge Disposition: Home or Self Care Social [...] 108/62 10/12/2024 1803 EST Pulse 97 10/12/2024 180 EST Temperature 37.4 ??C (99.3 ??F) 10/12/2024 1803 EST Respiratory Rate 18 10/12/2024 180 EST Oxygen Saturation 99% 10/12/2024 180 EST Inhaled Oxygen Concentration - - Weight - - Height - - Body Mass Index - - documented in this encounter Functional Status * Are you deaf or do you have serious difficulty hearing? Answer Date of Assessment Author No 09/29/2024 10:15 Ab slim Davis RN * Are you blind or do [...] Leslee Victor RN documented in this encounter Discharge Instructions * Discharge Instructions* Stas Parrish MD - 10/12/2024 18:29 EST Your rapid strep test is negative You are fighting off a viral flulike illness You have a bacterial infection in the left ear We can use the dexamethasone and the nasal saline to help open up the ear and Ragona use amoxicillin to clear the infection that is in the middle ear on the left. You should continue to use the ibuprofen and acetaminophen and stay well-hydrated. Ways to treat your cold and flu symptoms: Get plenty of rest, especially while you have a fever, chills or muscle aches. Avoid secondhand smoke, which can make cold symptoms worse. Drink lots of fluids like water and clear soups. Fluids helploosen mucus. Fluids are also important because they help prevent dehydration. Gargle with warm salt water a few times a day to relieve a sore throat. You can add a pinch [1/4 tsp] of baking soda to t he salt water to make it Throat sprays or lozenges may also help relieve the pain, but do not use them non-stop. Avoid alcohol. Use saline (salt water) nose spray/drops to help loosen mucus and moisten the tender skin in your nose several times a day if congested. It's possible that a small daily dose of Vitamin C will give you some relief*. Many people get a bad cough when they go to lie back and sleep. Keeping your nasopharynx clear withnasal saline will help, what will also help is to try going to sleep in a 'face down' position withyour head on the side of a pillow, this allows secretions to drain away from the top of your throatwhere they would trigger coughing. *Being low on Vitamin D can make your body a bit slower at fighting viruses off and, in [place] in the winter people do occasionally get low on vitamin D. Being on a source of vitamin D is important,From late fall to late spring, 3000 units a day is the adult dose to help prevent viral illness. This vitamin D is better at preventing viral illnesses than vitamin C. They have done studies on cough syrups to determine what the best cough syrup medicine is and it appears that that may be dextromethorphan, however there are 2 things that works significantly better,a spoonful of honey is shown to work better than a dextromethorphan cough syrup, and the nasal saline does a significantly better job since it is taking care of what is causing your postnasal drip rather than just trying to make your postnasal drip less irritating for a few hours. Over the Counter Medications: No over the counter medicine can cure the flu, but, you can use an anithistamine to help with a runny or congested nose - Diphenhydramine [generic benedryl] is a good choice - it's available over thecounter. You can use the antihistamine regularly, but should use decongestants sparingly. Decongestant/sinus medications should only be used if you are having sinus pain or severe congestion. These decongestants should only be used for a day or two and then stopped to prevent them from drying out your nose too much and causing the congestion to worsen. Cough medications are not very effective andmay have side effects. Instead of cough medications - try the salt water gargles, a lozenge or a spoon full of honey to soothe the throat. documented in this encounter Medications at Time of Discharge acetaminophen (TYLENOL) 500 mg tablet Take 2 Tablets by mouth every 8 hours as needed for Pain. 30 Tablet 09/29/2024 albuterol 90 mcg/actuation inhaler Inhale 2 Puffs as directed every 4 hours. 1 Inhaler 0 08/10/2014 cholecalciferol, Vitamin D3, 25 mcg (1,000 unit) tablet Take 3 Tablets by mouth daily. Use from late fall to late spring to prevent viral illnesses 10/12/2024 clonazePAM (KLONOPIN) 1 mg tablet Take 1 Tablet by mouth 2 times daily. 07/26/2023 d-mannose (AZO D-MANNOSE) 500 mg capsule Take 1,000 mg by mouth 2 times daily. 60 Capsule 07/15/2024 HYDROcodone-acet aminophen (NORCO) 5-325 mg tablet [...] Take 1 Tablet by mouth daily. 05/03/2024 sodium chloride (OCEAN) 0.65 % nasal spray Instill 1 Hardin into both nostrils 4 times daily. 1 Each 10/12/2024 venlafaxine (EFFEXOR-XR) 37.5 mg XR capsule Take by mouth. 08/20/2024 amoxicillin (AMOXIL) 500 mg capsule Take 1 Capsule by mouth 2 times daily for 6 days. 12 Capsule 10/12/2024 4 documented as of this encounter Ordered Prescriptions Prescription Sig Dispense Quantity Refills Last Filled Start Date End Date cholecalciferol, Vitamin D3, 25 mcg (1,000 unit) tablet Take 3 Tablets by mouth daily. Use from late fall to late spring to prevent viral illnesses 10/12/2024 sodium chloride (OCEAN) 0.65 % nasal spray Instill 1 Hardin into both nostrils 4 times daily. 1 Each 10/12/2024 amoxicillin (AMOXIL) 500 mg capsule Take 1 Capsule by mouth 2 times daily for 6 days. 12 Capsule 10/12/2024 4 documented in this encounter Discharge Disposition Disposition Code Departure Means Destination Comment s Home or Self Usp documented in this encounter ED Notes * Maciel Taylor RN - 10/12/2024 1817 EST Provider at bedside. * Stas Parrish MD - 10/12/2024 1748 EST DOS: 10/12/2024 Chief Complaint: Chief Complaint Patient presents with Cough Approx 5 days of cough, bilateral ear pain, cervical lymph node swelling, sore throat, sinus congestion. Taking apap/ibu together, took hydrocodone, benadryl, albuteral. Negative covid test recently. Assessment and Plan A flulike illness but because of time and health status not a candidate for treatment of COVID or flu at this point, otitis media on the right, still with significant flulike symptoms Will treat with amoxicillin nasal saline vitamin D dexamethasone palliation see patient instructions. Final diagnoses: Sore throat Upper respiratory tract infection, unspecified type Acute pharyngitis, unspecified etiology Influenza-like illness Non-recurrent acute suppurative otitis media of left ear without spontaneous rupture of tympanic membrane Procedures Results for orders placed or performed during the hospital encounter of 10/12/24 POCT RAPID STREP SCREEN Result Value Ref Range Rapid Strep Test, POC Negative Negative Background Clear? Yes Control Line Present Yes Rgt A + Rgt B= Yellow: Yes Culture Sent to Lab? No Radiology orders: None Consult orders: None Imaging Results None No orders to display The patient is a 33 y.o. female who presents today with Cough (Approx 5 days of cough, bilateral ear pain, cervical lymph node swelling, sore throat, sinus congestion. Taking apap/ibu together, took hydrocodone, benadryl, albuteral. Negative covid test recently.) Fifth day of flulike illnesses with fever little bit of headache ear plugging and episodes of severe ear pain left worse than right a cough achiness in the chest No rigors no production of brown sputum no chest pain no persistent air hunger No high risk exposures No history of asthma but she was given albuterol for bronchitis before Self treatment with numerous xawe-ddn-trvrhly cold medicines acetaminophen ibuprofen No ear drainage Sore throat but no trismus or difficulty swallowing Review of Systems Constitutional: Positive for appetite change, chills, fatigue and fever. HENT: Positive for congestion, ear pain, postnasal drip, rhinorrhea, sneezing and sore throat. Negative for ear discharge, hearing loss and trouble swallowing. Eyes: Positive for redness. Negative for pain and visual disturbance. Respiratory: Positive for cough. Negative for shortness of breath. Cardiovascular: Negative. Negative for chest pain. Gastrointestinal: Positive for nausea. Negative for abdominal pain. Endocrine: Negative for polyuria. Genitourinary: Negative for flank pain. Musculoskeletal: Positive for myalgias. Negative for joint swelling. Skin: Negative. Negative for rash. Neurological: Negative. Negative for dizziness and light-headedness. Hematological: Positive for adenopathy. Psychiatric/Behavioral: Negative. Current Facility-Administered Medications Medication Dose Route Frequency Provider Last Rate Last Admin Amoxicillin 250 mg Cap STARTER PACK 1 Package oral Now Stas Parrish MD dexAMETHasone (DECADRON) tablet 8 mg 8 mg oral Now Stas Parrish MD Current Outpatient Medications Medication Sig Dispense Refill acetaminophen (TYLENOL) 500 mg tablet Take 2 Tablets by mouth every 8 hours as needed for Pain. 30 Tablet 0 albuterol 90 mcg/actuation inhaler Inhale 2 Puffs as directed every 4 hours. 1 Inhaler 0 amoxicillin (AMOXIL) 500 mg capsule Take 1 Capsule by mouth 2 times daily for 6 days. 12 Capsule 0 cholecalciferol, Vitamin D3, 25 mcg (1,000 unit) tablet Take 3 Tablets by mouth daily. Use from late fall to late spring to prevent viral illnesses clonazePAM (KLONOPIN) 1 mg tablet Take 1 Tablet by mouth 2 times daily. d-mannose (AZO D-MANNOSE) 500 mg capsule Take 1,000 mg by mouth 2 times daily. 60 Capsule 11 HYDROcodone-acetaminophen (NORCO) 5-325 mg tablet Take 1 Tablet by mouth every 8 hours as needed for Pain. hydroxychloroquine (PLAQUENIL) 200 mg tablet Take 1 Tablet by mouth daily. (Patient not taking: Reported on 10/12/2024) 30 Tablet 5 ibuprofen (MOTRIN) 200 mg tablet Take 1 Tablet by mouth as needed. inhalational spacing device (BREATHERITE MDI SPACER) Use with a metered dose inhaler, as directed. May be dispensed with mask as appropriate.. 1 Each 0 levonorgestrel-ethinyl estradiol (STARR 28) 0.15-0.03 mg per tablet Take 1 Tablet by mouth daily. (Patient not taking: Reported on 09/05/2024) 84 Tablet 4 lidocaine 5 % (LIDODERM) 5 % patch APPLY 2 PATCHS ON THE SKIN ONCE DAILY UP TO 12 HOURS ON AND 12 HOURS OFF 20 Patch 1 magnesium oxide (MAG-OX) 400 mg (241.3 mg magnesium) tablet Take 1 Tablet by mouth daily. (Patient not taking: Reported on 09/05/2024) 30 Tablet 0 naproxen (NAPROSYN) 500 mg tablet Take by mouth. (Patient not taking: Reported on 09/05/2024) riboflavin, vitamin B2, 400 mg tablet Take 400 mg by mouth daily. 30 Tablet 0 sertraline (ZOLOFT) 50 mg tablet Take 1 Tablet by mouth daily. (Patient not taking: Reported on 10/12/2024) sodium chloride (OCEAN) 0.65 % nasal spray Instill 1 Hardin into both nostrils 4 times daily. 1 Each0 venlafaxine (EFFEXOR-XR) 37.5 mg XR capsule Take by mouth. Allergies Allergen Reactions Imitrex [Sumatriptan Succinate] Shortness Of Breath Prozac [Fluoxetine] Patient Active Problem List Diagnosis Date Noted IFRAH III (cervical intraepithelial neoplasia grade III) with severe dysplasia 02/01/2024 No tobacco, uses marijuana HPV vaccination age 12 before IC 2008, 2010, 2012 pap neg 2016 pap insuff 2020 pap and HPV neg 2022 pap neg, HPV pos (16, 18 neg) 2023 ASC-H, HPV pos 01/2024 colpo cx bx x3 IFRAH II-III 01/2024 LEEP - IFRAH II, negative margins - also endometriosis 07/2024 NIL + HR HPV; neg genotype 09/05/24 colposcopy with biopsies Abnormal uterine bleeding Chronic pelvic pain in female 04/18/2022 Spastic pelvic floor syndrome 08/21/2017 Urge urinary incontinence 08/21/2017 H/O section 10/19/2021 with coccygeal fracture 2016 Elective primary CS 2021 Past Medical History: Diagnosis Date Anxiety, generalized Ativan intermittently during Environmental allergies Pelvic floor dysfunction Social History Tobacco Use Smoking status: Never Passive exposure: Never Smokeless tobacco: Never Vaping Use Vaping status: Never Used Substance Use Topics Alcohol use: No Comment: social Drug use: No Family History Problem Relation Age of Onset Asthma Mother Hypertension Father BP 108/62 Pulse 97 Temp 99.3 ??F (37.4 ??C) (Temporal) Resp 18 SpO2 99% Physical Exam Vitals and nursing note reviewed. Constitutional: Appearance: She is well-developed. She is not diaphoretic. Comments: Respirations are easy in no distress HENT: Head: Normocephalic and atraumatic. Comments: Eyes minimally injected, no chemosis or discharge External ears normal canals normal right TM is quite retracted and the left TM is dull red-yellow and flat Moderate nasal congestion nasal passages patent Some postnasal drip Moderate inflammation in the back of the throat mild tonsillomegaly, symmetric No posterior pharyngeal or palate swelling 1+ anterior cervical lymphadenopathy Neck supple voice normal Eyes: Conjunctiva/sclera: Conjunctivae normal. Cardiovascular: Rate and Rhythm: Normal rate and regular rhythm. Pulmonary: Effort: Pulmonary effort is normal. Comments: Respirations are easy good air movement with deep inspiration no wheezes crackles or significant rhonchi Musculoskeletal: Cervical back: Normal range of motion. Skin: General: Skin is warm and dry. Neurological: Mental Status: She is alert and oriented to person, place, and time. PCP: Ariana Dill NP Urgent Care Course A medical screening exam was performed. DISPOSITION: Discharged The patient's pain was managed to an adequate level weighing risk vs. benefit of further medications. Upon departure from [facility], the patient's pain was 2 on a zero to ten scale. Any further pain treatment will be at the discretion of the provider following up with the patient based on their clinical assessment . Condition at departure from the [facility] : Good MDM 10/12/2024 18:30 documented in this encounter Plan of Treatment Upcoming Encounters Date Type Department Care Team (Late st Contact Info) Description 11/18/2024 8:15 EST Office Visit [facility] Pelvic Medicine and Reconstructive Surgery - Medical Office Building [facility] [address] [place] [id number] Julia Terrell PA-C [address] [place] [address] Medical Office Building, [address] [phone] 11/25/2024 8:00 EST Rehab Therapy Visit [facility] Rehabilitation Therapy - Medical Office Building [address] [place] [address] Cira Jackson, DPT [address] [place] [address], [facility] [place] [address] [place] [phone] 12/02/2024 8:00 EST Rehab Therapy Visit [facility] Rehabilitation Therapy - Medical Office Building [address] [place] [address] Cira Jackson, KEMALT [address] [place] [address], [facility] [place], [address] [place] [phone] 12/09/2024 8:00 EST Rehab Therapy Visit [facility] Rehabilitation Therapy - Medical Office Building [address] [place] [address] Cira Jackson, DPT [address] [place] [address], [facility] [place], [address] [place] [phone] 12/16/2024 9:00 EST Rehab Therapy Visit [facility] Rehabilitation Therapy - Medical Office Building [address] [place] [address] Cira Jackson, DPT [address] [place] [address], [facility] [place], [address] [place] [phone] 12/23/2024 9:00 EST Rehab Therapy Visit [facility] Rehabilitation Therapy - Medical Office Building [address] [place] [address] Cira Jackson, DPT [address] [place] [address], [facility] [place], [address] [place] [phone] documented as of this encounter Procedures Procedure Name Priority Date/Time Associated Diagnosis Comments POCT RAPID STREP SCREEN STAT 10/12/2024 18:01 EST Sore throat documented in this encounter Results * POCT RAPID STREP SCREEN (10/12/2024 18:01 EST) Rapid Strep Test, POC Negative Negative Background Clear? Yes Control Line Present Yes Rgt A + Rgt B= Yellow: Yes Culture Sent to Lab? No Swab PHARYNGEAL STRUCTURE / Unknown 10/12/2024 18:01 EST Stas Parrish MD POINT OF CARE TEST ORD ERABLES Final Result documented in this encounter Visit Diagnoses Diagnosis Upper respiratory tract infection, unspecified type- Primary Sore throat Acute pharyngitis Acute pharyngitis, unspecified etiology Influenza-like illness Influenza with other respiratory manifestations Non-recurrent acute suppurative otitis media of left ear without spontaneous rupture of tympanic membrane documented in this encounter Administered Medications Inactive Administered Medications - up to 3 most recent administrations Medication Order MAR Action Action Date Dose Rate Site Amoxicillin 250 mg Cap STARTER PACK 1 Package, oral, NOW X1, 1 dose, On 10/12/24 at 1830, STAT Given 10/12/2024 18:32 EST 1 Package dexAMETHasone (DECADRON) tablet 8 mg 8 mg, oral, NOW X1, 1 dose, On 10/12/24 at 1830, Routine Given 10/12/2024 18:32 EST 8 mg documented in this encounter Historical Medications * This list may reflect changes made after this encounter. venlafaxine (EFFEXOR-XR) 37.5 mg XR capsule Take by mouth. 08/20/2024 added in this encounter Active and Recently Administered Medications Times are shown in EST. Scheduled Medication Order 10/10/2024 10/11/2024 10/12/2024 Amoxicillin 250 mg Cap STARTER PACK (COMPLETED) 1 Package, oral, NOW X1, 1 dose, On 10/12/24 at 1830, STAT 1832 (Given - Provid er: Maciel Taylor RN) dexAMETHasone (DECADRON) tablet 8 mg (COMPLETED) 8 mg, oral, NOW X1, 1 dose, On 10/12/24 at 1830, Routine 1832 (Given - Provid er: Maciel Taylor RN) documented in this encounter Care Teams Chief Dispatcher Service Relationship Specialty Start Date End Date AmanarabellaAriana jones DNP [address] [place] [address] PCP - General 08/07/23 Rach Waddell MD [address] [facility], [address] [place] [address] Pack Room Operator Obstetrics and Gynecology 05/10/23 documented as of this encounter
--- OUTSIDE RECORDS SUMMARY | 2024-11-10 02:13 | XMS_ITS | Encounter Summary ---
Author Organization [facility] Address [address] [place] [address] Care Team Providers Care General Cleaner Name Role Phone Rach Waddell MD Unavailable [phone] Ariana Dill DNP Primary Care Provider [phone] Reason for Visit * Reason Onset Date Comments Results 07/18/2024 Encounter Details Date Type Department Care Team (Late st Contact Info) Description 07/18/2024 Telephone [facility] Pelvic Medicine and Reconstructive Surgery - Medical Office [facility] [address] [place] [address] Julia Sawyer, LAZARA Results Social History Tobacco Use Types Packs/Day Years [...] Assessment Author No 01/11/2024 18:50 EDT Karlo Haywood, RN * Are you blind or do [...] Refills Last Filled Start Date End Date nitrofurantoin, macrocrystal-monoh ydrate, (MACROBID) 100 mg capsule Take 1 Capsule by mouth 2 times daily for 5 days. 10 Capsule 07/18/2024 documented in this encounter Miscellaneous Notes * Telephone Encounter - Destiney Irizarry RN - 07/18/2024 0849 EDT Patient on the voicemail requesting a call back to further discuss her urine test results. Per the below communication LAZARA Alcantara has already spoken with the patient. No further communication needed at this time. DESTINEY IRIZARRY RN 07/18/2024 8:52 * Telephone Encounter - Julia Sawyer RN - 07/18/2024 0845 EDT The patient indicates understanding of these issues and agrees with the plan. * Telephone Encounter - Julia Sawyer RN - 07/18/2024 0840 EDT ----- Message from Jennifer Cheng PA-C sent at 07/17/2024 20:17 EDT ----- Arielle, Please phone patient regarding culture. Send script please Macrobid 100mg po bid x 5 days, qty 10. Thanks. ----- Message ----- From: Lab, Background Sent: 07/15/2024 8:58 EDT To: Jennifer Cheng PA-C documented in this encounter Plan of Treatment Upcoming Encounters Date Type Department Care Team (Late st Contact Info) Description 11/18/2024 8:15 EST Office Visit [facility] Pelvic Medicine and Reconstructive Surgery - Medical Office [facility] [address] [place] [address] [phone] Julia Terrell PA-C [address] [place] [address] Medical Office Building, [address] [place] [phone] 11/25/2024 8:00 EST Rehab Therapy Visit [facility] Rehabilitation Therapy - Medical Office Building [address] [place] [address] Cira Jackson DPT [address] [place] [address] [address] [place] [phone] 12/02/2024 8:00 EST Rehab Therapy Visit [facility] Rehabilitation Therapy - Medical Office Building [address] [place] [address] [phone] Cira Jackson DPT [address] [place] [address], [address] [place] [phone] 12/09/2024 8:00 EST Rehab Therapy Visit [facility] Rehabilitation Therapy - Medical Office Building [address] [place], [place] [address] Cira Jackson, DPT [address] [place] [address], [facility] [place], [address] [place] [phone] 12/16/2024 9:00 EST Rehab Therapy Visit [facility] Rehabilitation Therapy - Medical Office Building [address] [place] [address] Cira Jackson, DPT [address] [place] [address], [facility] [place], [address] [place] [phone] 12/23/2024 9:00 EST Rehab Therapy Visit [facility] Rehabilitation Therapy - Medical Office [id number] [place] [address] Cira Jackson, DPT [address] [place] [address], [facility] [place], [address] [place] [phone] documented as of this encounter Visit Diagnoses Not on filedocumented in this encounter Care Teams General Cleaner Relationship Specialty Start Date End Date Ariana Dill DNP [address] [place] [id number] PCP - General 08/07/23 Rach Waddell MD [address] [place] [address], [facility] [address] [place] [phone] Ekg Manager Obstetrics and Gynecology 05/10/23 documented as of this encounter
--- OUTSIDE RECORDS SUMMARY | 2024-11-10 02:13 | XMS_ITS | Encounter Summary ---
Author Organization [facility] Address [address] [place] [address] Care Team Providers Care Interlocking Pavement Installer Name Role Phone Rach Waddell MD Unavailable [phone] Ariana Dill DNP Primary Care Provider [phone] Encounter Details Date Type Department Care Team (Latest Contact Info) Description 09/29/2024 Travel Social History Tobacco Use Types Packs/Day Years [...] Leslee Deal RN documented in this encounter Plan of Treatment Upcoming Encounters Date Type Department Care Team (Late st Contact Info) Description 11/18/2024 8:15 EST Office Visit [facility] Pelvic Medicine and Reconstructive Surgery - Medical Office [facility] [address] [place] [id number] Julia Terrell PA-C [address] [place] [address] Medical Office [facility], [address] [place] [phone] 11/25/2024 8:00 EST Rehab Therapy Visit [facility] Rehabilitation Therapy - Medical Office Building [address] [place] [address] Cira Jackson DPT [address] [place] [address], [address] [place] [phone] 12/02/2024 8:00 EST Rehab Therapy Visit [facility] Rehabilitation Therapy - Medical Office Building [address] [place] [address] Cira Jackson DPT [address] [place] [address], [address] [place] [phone] 12/09/2024 8:00 EST Rehab Therapy Visit [facility] Rehabilitation Therapy - Medical Office Building [address] [place] [address] Cira Jackson, DPT [address] [place] [address], [facility], [address] [place] [phone] 12/16/2024 9:00 EST Rehab Therapy Visit [facility] Rehabilitation Therapy - Medical Office Building [address] [place] [address] Cira Jackson, DPT [address] [place] [address], [facility], [address] [place] [phone] 12/23/2024 9:00 EST Rehab Therapy Visit [facility] Rehabilitation Therapy - Medical Office Building [address] [place] [address] Cira Jackson, DPT [address] [place] [address], [facility], [address] [place] [phone] documented as of this encounter Visit Diagnoses Not on filedocumented in this encounter Care Teams Interlocking Pavement Installer Relationship Specialty Start Date End Date Ariana Dill DNP [address] [place] [address] PCP - General 08/07/23 Rach Waddell MD [address] [place] [address], [facility] [address] [place] [phone] Tube Former Operator Obstetrics and Gynecology 05/10/23 documented as of this encounter
--- OUTSIDE RECORDS SUMMARY | 2024-11-10 02:13 | XMS_ITS | Referral Summary ---
Author Organization [facility] Address [address] [place] [address] Care Team Providers Care Harbor Boat Pilot Name Role Phone Rach Waddell MD Unavailable Ariana Dill DNP Primary Care Provider [phone] Encounters Date Type Department Care Team Description 10/28/2024 Telephone [facility] Rheumatology & Immunology - [address] [phone] Seymour Kang MD Appointment Related (5 MO Follow Up) 10/12/2024 17:52 EST - 10/12/2024 18:38 EST Hospital Encounter [facility] Urgent [facility] [address] [address] Stas Parrish MD Upper respiratory tract infection, unspecified type (Primary Dx); Sore throat; Acute pharyngitis, unspecified etiology; Influenza-like illness; Non-recurrent acute suppurative otitis media of left ear without spontaneous rupture of tympanic membrane Discharge Disposition: Home or Self Care 09/29/2024 Travel 09/29/2024 10:19 EST - 09/29/2024 12:49 EST Emergency [facility] Emergency Department - [address] [id number] Sprain of right foot, initial encounter (Primary Dx) Discharge Disposition: Home or Self Care 09/05/2024 15:15 EST Procedure visit [facility] [address] [address] Christiane Munoz NP Pre-procedure lab exam (Primary Dx); Cervical high risk human papillomavirus (HPV) DNA test positive 09/02/2024 Telephone [facility] OBGYN Services - [address] [phone] Christiane Munoz NP Advice Only 08/22/2024 Telephone [facility] Rehabilitation Therapy - Medical Office Building [address] [place], [place] [phone] Therapy, Outpatient, Appointment Related 08/19/2024 10:00 EDT Procedure visit [facility] OBGYN Services [address] [id number] Christiane Munoz NP IFRAH II (cervical intraepithelial neoplasia II) (Primary Dx) 08/15/2024 Telephone [facility] Interventional Pain [address] [place] [address] Cheri Russell PA-C Appointment Related 08/15/2024 Telephone [facility] Interventional Pain [address] [place] [address] Cheri Russell PA-C Appointment Related 08/15/2024 13:00 EDT Telemedicine [facility] Interventional Pain [address] [place] [address] Cheri Russell PA-C Lumbar radiculopathy, chronic (Primary Dx) 08/12/2024 10:00 EDT - 08/12/2024 23:59 EDT Hospital Encounter [facility] [address] [place], [place] [phone] Pelvic pressure in female Discharge Disposition: Home or Self Care from Last 3 Months Allergies Active Allergy Reactions Criticality Noted Date [...] Additional Information Patient not taking.Reported on 09/05/2024 HYDROcodone-kourtney taminophen (NORCO) 5-325 mg tablet Take 1 [...] (OCEAN) 0.65 % nasal spray Instill 1 [place] into both nostrils 4 times daily. 1 Each 12/21/202 4 Active cholecalciferol , Vitamin D3, 25 [...] normal first in third trimester 11/25/2015 08/21/2017 Social History Tobacco Use Types Packs/Day Years [...] 9:04 EST Sexual Orientation Not on file Last Filed [...] Body Mass Index 18.6 09/29/2024 1017 EST Functional Status * Are you deaf or [...] Yes 02/06/2024 14:42 EDT Leslee Deal RN Mental Status * Because of a physical, mental, or emotional condition, does this person have serious difficulty concentrating, remembering, or making decisions? Answer Entry Date Author Yes 02/20/2024 12:00 EDT Leslee Deal RN Plan of Treatment Upcoming Encounters Date Type Department Care Team (Late st Contact Info) Description 11/18/2024 8:15 EST Office Visit [facility] Pelvic Medicine and Reconstructive Surgery - Medical Office Building [facility] [address] [place] [address] Julia Terrell PA-C [address] [place] [address] Office [facility], [address] [place] [phone] 11/25/2024 8:00 EST Rehab Therapy Visit [facility] Rehabilitation Therapy - Medical Office Building [address] [place] [address] Cira Jackson DPT [address] [place] [address] [address] [place] [phone] 12/02/2024 8:00 EST Rehab Therapy Visit [facility] Rehabilitation Therapy - Medical Office [place] [address] [place], [place] [address] Cira Jackson DPT [address] [place] [address] [address] [place] [phone] 12/09/2024 8:00 EST Rehab Therapy Visit [facility] Rehabilitation Therapy - Medical Office Building [address] [place] [address] Cira Jackson DPT [address] [place] [address] [address] [place] [phone] 12/16/2024 9:00 EST Rehab Therapy Visit [facility] Rehabilitation Therapy - Medical Office Building [address] [place], [place] [address] Cira Jackson, DPT [address] [facility], [address] [place] [phone] 12/23/2024 9:00 EST Rehab Therapy Visit [facility] Rehabilitation Therapy - Medical Office Building [address] [place], [place] [address] Cira Jackson, ROBERTO [address] [place] [address], [facility], [address] [place] [phone] Procedures Procedure Name Priority Date/Time Associated Diagnosis [...] Unknown 10/07/2024 11:19 EST 10/07/2024 11:19 EST us Julieta Benson PA-C LAB INFO SERVICE AND SUPP ORT & PHONE RESULT Final Result [facility] [address] [place] [address] * XR FOOT RIGHT 3 OR MORE [...] bones and soft tissues are otherwise unremarkable. [id number] Resulting Agency Comment [id number] Procedure Note Alexander Mendez MD - 09/29/2024 [...] Imaged bones and soft tissues are otherwiseunremarkable. [id number] us Marlene Nye PA-C IMG DIAGNOSTIC IMAGING ORDERA BLES Final Result * XR ANKLE RIGHT 3 OR MORE VIEWS (09/29/2024 10:58 EST) Anatomical Region Laterality Modality Lower Extremities, Ankle Right Compute d Radiography 09/29/2024 11:3 6 EST Impressions 09/29/2024 11:36 EST No acute fracture or dislocation. [id number] Narrative 09/29/2024 11:36 EST XR ANKLE RIGHT [...] tissues are otherwise unremarkable. Resulting Agency Comment [id number] Procedure Note Alexander Mendez MD - 09/29/2024 [...] otherwiseunremarkable. IMPRESSION No acute fracture or dislocation. [id number] us Marlene Nye PA-C IMG DIAGNOSTIC IMAGING [...] explore management options, if applicable. 09/10/2024 10:28 [facility] Final Diagnosis A. ENDOCERVIX, CURETTAGE: - Fragments of benign endocervix. B. CERVIX, 12, 1 O'CLOCK, BIOPSY: - Scant benign squamous epithelium and endocervical glands. 09/10/2024 10:28 [facility] Attestation There was significant resident/fellow involvement in the diagnostic evaluation of this case. By the signature below, the attending physician certifies that they have personally conducted a gross and/or microscopic examination of the described specimens and rendered or confirmed the above diagnosis. 09/10/2024 10:28 [facility] at 1028 Clinical History H/O LEEP for IFRAH 3 01/2024; surg path with IFRAH 2 and neg margins. 1st 6 month f/u pap NIL + HR HPV; neg genotypes; clinical diagnosis code: R87.810 09/10/2024 10:28 [facility] Gross Description A. Received [...] processing. ALYSSA ABEBE(ASCP) 09/06/2024 12:03 09/10/2024 10:28 [facility] Resident/Asad w: Sailaja Cruz MD 09/10/2024 10:28 [facility] Performing Lab [facility] 09/10/2024 10:28 [facility] Scanned Images 09/10/2024 10:28 [facility] Tissue CERVIX UTERI STRUCTURE / Unknown Collection, Other / Unknown 09/05/2024 16:23 EST 09/06/2024 10:18 EST Tissue specimen (specimen) CERVIX UTERI STRUCTURE / Unknown 09/05/2024 16:23 EST 09/06/2024 10:18 EST Christiane Munoz NP PATHOLOGY ORDERABLES Final Res ult [facility] [address] [phone] * POCT TEST, CLIN[facility] (09/05/2024 15:32 EST) UPT Result Negative Negative 09/05/2024 15:38 EST [facility] HN LAB COMMENT ([facility], UPT) Test performed at [facility] 09/05/2024 15:38 EST [facility] Comment:False negative resul ts may occur in women who are beyond 5-8 weeks gestation. Diagnosis of should be based on a correlation of test results with typical clinical signs and symptoms. Urine URINE SPECIMEN OBTAINED BY CLEAN CATCH PROCEDURE / Unknown 09/05/2024 15:32 EST 09/05/2024 15:38 EST Christiane Munoz NP POINT OF CARE TEST ORDERABLES Final Result [facility] [address] [place] [address] * POCT CSN BARCODE URINE PREG TEST (09/05/2024 15:28 EST) Urine URINE SPECIMEN OBTAINED BY CLEAN CATCH PROCEDURE / Unknown 09/05/2024 15:28 EST 09/05/2024 15:28 EST Christiane Munoz NP LAB INFO SERVICE AND SUPPORT & PHONE RESULT Final Result Performing Organization Address City/[facility]/ZIP Co de Phone Number [facility] [address] [place] [address] * PAP TEST (08/19/2024 12:45 EDT) Specimens A. Cervix and/or Endocervix , ThinPrep Imaging System with Manual Evaluation 08/30/2024 15:25 [facility] Specimen Adequacy Satisfactory for Evaluation - transformation zone component present 08/30/2024 15:25 [facility] General Categorization Negative for intraepithelial lesion or malignancy 08/30/2024 15:25 [facility] Descriptive Diagnosis Reactive cellular changes associated with inflammation present (includes repair). 08/30/2024 15:25 [facility] Attestation By the signature below, the attending physician certifies that they have personally conducted a gross and/or microscopic examination of the described specimens and rendered or confirmed the above diagnosis. 08/30/2024 15:25 [facility] at 1525 Clinical History IFRAH 2 on LEEP pathology 02/202408/30/2024 15:25 [facility] Performing Lab [facility] 08/30/2024 15:25 [facility] Scanned Images 08/30/2024 15:25 [facility] HPV High Risk type 16, PCR Negative 08/30/2024 15:25 [facility] HPV High Risk type 18, PCR Negative 08/30/2024 15:25 [facility] HPV Other High Risk Types, PCR Positive Positive for one of the following Other High Risk HPV types: 31,33, 35, 39, 45, 51, 52, 56, 58, 59, 66 and 68. 08/30/2024 15:25 [facility] Pap Test CERVIX UTERI STRUCTURE / Unknown 08/19/2024 12:45 EDT 08/19/2024 14:50 EDT Christiane Munoz NP PATHOLOGY ORDERABLES Final Res ult [facility] [address] [place] [address] * (ABNORMAL) HPV DNA DETECTION WITH GENOTYPING, PCR (08/19/2024 12:45 EDT) HPV High Risk type 16, PCR Negative Negative 08/30/2024 15:25 [facility] HPV High Risk type 18, PCR Negative Negative 08/30/2024 15:25 [facility] HPV other High Risk types, PCR Positive(A) Negative 08/30/2024 15:25 [facility] Comment: Positive for one of the following Other High Risk HPV types: ??31,33, 35, 39, 45, 51, 52, 56, 58, 59, 66 and 68. Pap Test CERVIX UTERI STRUCTURE / Unknown 08/19/2024 12:45 EDT 08/29/2024 14:17 EST us Christiane Munoz NP MICROBIOLOGY - GENERAL ORDERAB LES Final Result [facility] [address] [place] [address] * US PELVIS TRANSABDOMINAL AND TRANSVAGINAL COMPLETE [...] 2. Otherwise normal pelvic for age ultrasound. [id number] Narrative 08/12/2024 11:39 EDT US PELVIS TRANSABDOMINAL AND TRANSVAGINAL COMPLETE WITH LIMITED DUPLEX ??08/12/2024 11:22 AM SIGNS AND SYMPTOMS/COMMENTS: Worsening pelvic pressure/pain over the last few months. COMPARISON: Pelvic ultrasound 01/10/2024, pelvic MRI 09/07/2023. DUPLEX: Indication for Duplex: Concern for ovarian torsion and/or mass Technique: Color and spectral Doppler ultrasound of the pelvis was performed. Resulting Agency Comment [id number] Procedure Note Ty Newsome MD - 08/12/2024 US PELVIS TRANSABDOMINAL AND TRANSVAGINAL COMPLETE WITH LIMITED [id number]/12/2024 11:22 AM SIGNS AND SYMPTOMS/COMMENTS: Worsening pelvic [...] 2. Otherwise normal pelvic for age ultrasound. [id number] us Jennifer Cheng PA-C IMG US OB ORDERABLES Final Result * HEPATITIS C AB W REFLEX TO HCV RNA BY PCR (02/01/2024 10:31 EDT) Hep C Antibody Negative Negative 02/06/2024 17:23 EDT [facility] Blood VENOUS BLOOD / Unknown Venipuncture / Unknown 02/01/2024 10:31 EDT 02/01/2024 11:03 EDT Seymour Kang MD CHEMISTRY & BLOOD GAS ORDERABLE S Final Result [facility] [address] [place] [address] from Last 3 Months or Most Recently Relevant to Health Maintenance Administered Medications Insurance MEDICA[place] [facility] Address: [place] [id number] MED[place] [facility] Address: [address] [place] [address] MEDICAID [facility] Address: [address] [place] [phone] [place] Advance Directives For more information, please contact: [phone] * Full Code (Latest Code Status on [...] the discussion? Not Discusse d Care Teams Harbor Boat Pilot Relationship Specialty Start Date End Date Ariana Dill DNP [address] [place] [address] PCP - General 08/07/23 Rach Waddell MD [address] [place] [address] 4 [place] [address] Loom Doffer Obstetrics and Gynecology 05/10/23
--- OUTSIDE RECORDS SUMMARY | 2024-11-10 02:13 | XMS_ITS | Encounter Summary ---
Author Organization [facility] Address [address] [place] [address] Care Team Providers Care Washer And Capper Machine Operator Name Role Phone Rach Waddell MD Unavailable Ariana Dill DNP Primary Care Provider [phone] Reason for Visit * Reason Onset Date Comments Appointment Related 08/15/2024 Encounter Details Date Type Department Care Team (Late st Contact Info) Description 08/15/2024 Telephone [facility] Interventional Pain [address] [place] [address] Cheri Russell PA-C [address] [facility] [address] [place] [address] Appointment Related Social History Tobacco [...] encounter Miscellaneous Notes * Telephone Encounter - Niurka Manley - 08/15/2024 1341 EDT LMOVM for Pt to call back to schedule Lumbar epidural steroid injections at L5 S1 with Dr Santos. * Telephone Encounter - Niurka Manley - 08/15/2024 1340 EDT ----- Message from Cheri Russell PA-C sent at 08/15/2024 13:23 EDT ----- Please schedule L5-S1 with Dr. Santos. Thanks :) documented in this encounter Plan of Treatment Upcoming Encounters Date Type Department Care Team (Late st Contact Info) Description 11/18/2024 8:15 EST Office Visit [facility] Pelvic Medicine and Reconstructive Surgery - Medical Office Building [facility] [address] [place] [address] Julia Terrell PA-C [address] [facility] Medical Office Building, [address] [place] [phone] 11/25/2024 8:00 EST Rehab Therapy Visit [facility] Rehabilitation Therapy - Medical Office Building [address] [place] [address] Cira Jackson, DPT [address] [place] [address], [facility], [address] [place] [phone] 12/02/2024 8:00 EST Rehab Therapy Visit [facility] Rehabilitation Therapy - Medical Office Building [address] [place] [address] Cira Jackson, DPT [address] [place] [address], [facility], [address] [place] [phone] 12/09/2024 8:00 EST Rehab Therapy Visit [facility] Rehabilitation Therapy - Medical Office Building [address] [place] [address] Cira Jackson DPT [address] [place] [address], [facility], [address] [place] [phone] 12/16/2024 9:00 EST Rehab Therapy Visit [facility] Rehabilitation Therapy - Medical Office Building [address] [place] [address] Cira Jackson, DPT [address] [place] [address], [facility], [address] [place] [phone] 12/23/2024 9:00 EST Rehab Therapy Visit [facility] Rehabilitation Therapy - Medical Office Building [address] [place], [place] [address] Cira Jackson, DPT [address] [facility], [facility], [address] [place] [phone] documented as of this encounter Visit Diagnoses Not on filedocumented in this encounter Care Teams Washer And Capper Machine Operator Relationship Specialty Start Date End Date Ariana Dill DNP [address] [place] [address] PCP - General 08/07/23 Rach Waddell MD [address] [facility], [facility], [address] [place] [phone] Strap Cutter Obstetrics and Gynecology 05/10/23 documented as of this encounter
--- OUTSIDE RECORDS SUMMARY | 2024-11-10 02:13 | XMS_ITS | Encounter Summary ---
Author Organization [facility] Address [address] [place] [address] Care Team Providers Care Flooring Grader Name Role Phone Rach Waddell MD Unavailable Ariana Dill DNP Primary Care Provider [phone] Encounter Details Date Type Department Care Team (Late st Contact Info) Description 05/27/2024 Lab Requisition [facility] Pathology & Laboratory Medicine - [facility] [address] [place] [address] Sheree Sepulveda, RESIDENTIAL SUPERVISOR [address] [place], [place] [address] Major depressive disorder, recurrent, moderate (HCC-CMS) Social History Tobacco Use Types Packs/Day Years [...] Description 11/18/2024 8:15 EST Office Visit [facility] Pelvic Medicine and Reconstructive Surgery - Medical Office Building [facility] [address] [place] [id number] Julia Terrell PA-C 2 [facility] Medical Office Building, [address] [place] [phone] 11/25/2024 8:00 EST Rehab Therapy Visit [facility] Rehabilitation Therapy - Medical Office Building [address] [place], [place] [address] Cira Jackson DPT 792 [facility], [facility], [address] [place] [phone] 12/02/2024 8:00 EST Rehab Therapy Visit [facility] Rehabilitation Therapy - Medical Office Building [address] [place] [address] Cira Jackson DPT [address] [place] [address], [facility], [address] [place] [phone] 12/09/2024 8:00 EST Rehab Therapy Visit [facility] Rehabilitation Therapy - Medical Office Building [address] [place] [address] Cira Jackson DPT [address] [place] [address], [facility], [address] [place] [phone] 12/16/2024 9:00 EST Rehab Therapy Visit [facility] Rehabilitation Therapy - Medical Office [address] [address] Cira Jackson DPT [address] [place] [address], [facility], [address] [place] [phone] 12/23/2024 9:00 EST Rehab Therapy Visit [facility] Rehabilitation [facility] - Medical Office [address] [address]63[address] Cira Jackson, DPT [address] [place] [address], [facility], [address] [place] [phone] documented as of this encounter Procedures Procedure Name Priority Date/Time Associated Diagnosis Comments TSH Today 05/27/2024 15:43 EDT Major depressive disorder, recurrent, moderate ([facility]-CMS) documented in this encounter Results * TSH (05/27/2024 15:43 EDT) TSH 0.71 0.47 - 4.68 mIU/L 05/27/2024 20:46 EDT [facility] Blood VENOUS BLOOD / Unknown 05/27/2024 15:43 EDT 05/27/2024 20:01 EDT Narrative [facility] - 05/27/2024 20:46 EDT The results of this assay can be falsely lowered due to the consumption of Biotin. us Sheree Sepulveda RESIDENTIAL SUPERVISOR CHEMISTRY & BLOOD GAS ORDERA BLES Final Result [facility] [address] [place], [place] [address] documented in this encounter Visit Diagnoses Diagnosis Major depressive disorder, recurrent, moderate (HCC-CMS) Major depressive disorder, recurrent episode, moderate documented in this encounter Care Teams Flooring Grader Relationship Specialty Start Date End Date Ariana Dill DNP [address] [place] [address] PCP - General 08/07/23 Rach Waddell MD 111 [facility], [address] [place] [address] Wine Master Obstetrics and Gynecology 05/10/23 documented as of this encounter
--- OUTSIDE RECORDS SUMMARY | 2024-11-10 02:13 | XMS_ITS | Encounter Summary ---
Author Organization [facility] Address [address] [place] [address] Care Team Providers Care Spool Fixer Name Role Phone Rach Waddell MD Unavailable Ariana Dill DNP Primary Care Provider [phone] Reason for Visit * Reason Onset Date Comments Appointment Related 10/28/2024 5 MO Follow Up Encounter Details Date Type Department Care Team (Late st Contact Info) Description 10/28/2024 Telephone [facility] Rheumatology & Immunology - [address] [phone] Seymour Kang MD 111 [facility], [address] [place] [address] Appointment Related (5 MO Follow [...] Leslee Victor RN documented in this encounter Miscellaneous Notes * Telephone Encounter - Lupe Craig - 10/28/2024 1855 EST Reason for Call: Appointment Related (5 MO Follow Up) Summary/Symptoms: Reason for call: Follow Up Appointment Left message to call back to schedule follow up appointment with Dr. Kang Patient is due on or after 12.10.2024 Please schedule as follows: 5 MO Polyarthralgia Follow Up(around 12.10.2024)40 MIN IN PERSON Second Call- Recall has been deleted. Please schedule follow up from book it on or after the date the patient is due. 1st Attempt was 07.10.2024 Removed from RECALL LIST Lupe Craig 10/28/2024 18:55 documented in this encounter Plan of Treatment Upcoming Encounters Date Type Department Care Team (Late st Contact Info) Description 11/18/2024 8:15 EST Office Visit [facility] Pelvic Medicine and Reconstructive Surgery - Medical Office Building [facility] [address] [place] [address] Julia Terrell PA-C 2 [facility] Medical Office Building, [address] [place] [phone] 11/25/2024 8:00 EST Rehab Therapy Visit [facility] Rehabilitation Therapy - Medical Office Building [address] [place] [address] Cira Jackson DPT [address] [place] [address], [address] [place] [phone] 12/02/2024 8:00 EST Rehab Therapy Visit [facility] Rehabilitation Therapy - Medical Office Building [address] [place] [address] Cira Jackson DPT [address] [place] [address], [address] [place] [phone] 12/09/2024 8:00 EST Rehab Therapy Visit [facility] Rehabilitation Therapy - Medical Office Building [address] [place] [address] Cira Jackson DPT [address] [place] [address], [address] [place] [phone] 12/16/2024 9:00 EST Rehab Therapy Visit [facility] Rehabilitation Therapy - Medical Office Building [address] [place] [address] Cira Jackson DPT [address] [place] [address], [facility], [address] [place] [phone] 12/23/2024 9:00 EST Rehab Therapy Visit [facility] Rehabilitation Therapy - Medical Office Building [address] [place], [place] [address] Cira Jackson, DPT 792 [facility], [facility], [address] [place] [phone] documented as of this encounter Visit Diagnoses Not on filedocumented in this encounter Care Teams Spool Fixer Relationship Specialty Start Date End Date Ariana Dill DNP [address] [place] [address] PCP - General 08/07/23 Rach Waddell MD [address] [place] [address], [address] [place] [phone] Hospitalist Physician Obstetrics and Gynecology 05/10/23 documented as of this encounter
--- OUTSIDE RECORDS SUMMARY | 2024-11-10 02:13 | XMS_ITS | Encounter Summary ---
Author Organization [facility] Address [address] [place] [address] Care Team Providers Care Warping Machine Operator Name Role Phone Rach Waddell MD Unavailable Ariana Dill DNP Primary Care Provider [phone] Reason for Visit * Reason Onset Date Comments Advice Only 09/02/2024 Encounter Details Date Type Department Care Team (Late st Contact Info) Description 09/02/2024 Telephone [facility] OBGYN Services - [facility] [address] [place], [place] [phone] Christiane Munoz NP 111 [facility], [address] [place] [address] Advice Only Social History Tobacco Use Types Packs/Day Years [...] encounter Miscellaneous Notes * Telephone Encounter - Buddy Snell RN - 09/02/2024 1321 EST Christiane Munoz NP to Me 09/02/24 12:21 She needs the repeat colpo per ASCCP guidelines. 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 Christiane Munoz NP to Me 09/02/24 12:20 Hi, she doesn't need to stop any meds before the colpo. thanks Me to Christiane Munoz NP 09/02/24 10:45 I see that you sent a mcm to this patient about her pap results. She seems to want more explanationfor why she needs the procedure again. Also, she wants to know if she can keep taking all of her medications. I don't see anything on her list that she needs to stop? Am I missing something. Are there meds patient need to d/c before colpo? Telephone call to patient. Counseled need for colpo as per Christiane's note. Patient verbalizes understanding with no barriers noted and agrees to plan of care. * Telephone Encounter - Nitin Lucero - 09/02/2024 0858 EST TC to pt to schedule Colpo. Pt has questions about why see needs a second procedure done since she has already done this once. Also has questions regarding her medications that she is taking and if she will be able to stay on them with the procedure. Detailed VM ok [phone] documented in this encounter Plan of Treatment Upcoming Encounters Date Type Department Care Team (Late st Contact Info) Description 11/18/2024 8:15 EST Office Visit [facility] Pelvic Medicine and Reconstructive Surgery - Medical Office [facility] [address] [place] [address] Julia Terrell PA-C [address] [place] [address] Medical Office [facility], [address] [place] [phone] 11/25/2024 8:00 EST Rehab Therapy Visit [facility] Rehabilitation Therapy - Medical Office Building [address] [place] [address] Cira Jackson DPT [address] [place] [address] [address] [place] [phone] 12/02/2024 8:00 EST Rehab Therapy Visit [facility] Rehabilitation Therapy - Medical Office Building [address] [place] [address] Cira Jackson DPT [address] [place] [address], [address] [place] [phone] 12/09/2024 8:00 EST Rehab Therapy Visit [facility] Rehabilitation Therapy - Medical Office Building [address] [place] [address] Cira Jackson, DPT [address] [place] [address], [facility], [address] [place] [phone] 12/16/2024 9:00 EST Rehab Therapy Visit [facility] Rehabilitation Therapy - Medical Office Building [address] [place] [address] Cira Jackson, DPT [address] [place] [address], [facility], [address] [place] [phone] 12/23/2024 9:00 EST Rehab Therapy Visit [facility] Rehabilitation Therapy - Medical Office [place] 6[address]802 [place] [address] Cira Jackson, DPT [address] [place] [address], [facility], [address] [place] [phone] documented as of this encounter Visit Diagnoses Not on filedocumented in this encounter Care Teams Warping Machine Operator Relationship Specialty Start Date End Date Ariana Dill DNP [address] [place] [address] PCP - General 08/07/23 Rach Waddell MD 111 [facility], [facility] 4 [place] [phone] Acting Instructor Obstetrics and Gynecology 05/10/23 documented as of this encounter
--- OUTSIDE RECORDS SUMMARY | 2024-11-10 02:13 | XMS_ITS | Encounter Summary ---
Author Organization [facility] Address [address] [place] [address] Care Team Providers Care Community Health Counselor Name Role Phone Rach Waddell MD Unavailable Ariana Dill DNP Primary Care Provider [phone] Encounter Details Date Type Department Care Team (Latest Contact Info) Description 05/01/2024 Lab Requisition [facility] Pathology & Laboratory Medicine - [facility] [address] [place] [address] Ariana Dill DNP [address] [place], [place] [address] Other symptoms and signs involving the genitourinary system Social History Tobacco Use Types Packs/Day Years [...] Date of Assessment Author Yes 02/06/2024 14:42 EDLeslee Huggins RN documented as of this encounter Mental Status * Because of a physical, mental, or emotional condition, does this person have serious difficulty concentrating, remembering, or making decisions? Answer Entry Date Author Yes 02/20/2024 12:00 EDT Leslee Deal RN documented in this encounter Plan of Treatment Upcoming Encounters Date Type Department Care Team (Late st Contact Info) Description 11/18/2024 8:15 EST Office Visit [facility] Pelvic Medicine and Reconstructive Surgery - Medical Office Building [facility] [address] [place], [place] [address] Julia Terrell PA-C 2 [facility] Medical Office Building, [address] [place] [phone] 11/25/2024 8:00 EST Rehab Therapy Visit [facility] Rehabilitation Therapy - Medical Office Building [address] [place], [place] [phone] Cira Jackson, DPT 792 [facility], [facility], [address] [place] [phone] 12/02/2024 8:00 EST Rehab Therapy Visit [facility] Rehabilitation Therapy - Medical Office Building [address] [place] [address] Cira Jackson DPT [address] [place] [address], [facility], [address] [place] [phone] 12/09/2024 8:00 EST Rehab Therapy Visit [facility] Rehabilitation Therapy - Medical Office [address] [address] Cira Jackson DPT [address] [place] [address], [facility], [address] [place] [phone] 12/16/2024 9:00 EST Rehab Therapy Visit [facility] Rehabilitation Therapy - Medical Office [address] [address] Cira Jackson DPT [address] [place] [address], [facility], [address] [place] [phone] 12/23/2024 9:00 EST Rehab Therapy Visit [facility] Rehabilitation [facility] - Medical Office [address] [address] Cira Jackson DPT [address] [place] [address], [facility], [address] [place] [phone] documented as of this encounter Procedures Procedure Name Priority Date/Time Associated Diagnosis Comments BACTERIAL CULTURE, URINE Today 05/01/2024 15:39 EDT Other symptoms and signs involving the genitourinary system documented in this encounter Results * BACTERIAL CULTURE, URINE (05/01/2024 15:39 EDT) Organism ID Less than 10,000 CFU/ml usual urogenital tomy. 05/03/2024 9:41 EDT [facility] Urine URINE SPECIMEN OBTAINED BY CLEAN CATCH PROCEDURE / Unknown 05/01/2024 15:39 EDT 05/01/2024 21:27 EDT Ariana Dill DNP MICROBIOLOGY - GENERAL OR DERABLES Final Result [facility] [address] [place] [address] documented in this encounter Visit Diagnoses Diagnosis Other symptoms and signs involving the genitourinary system documented in this encounter Care Teams Community Health Counselor Relationship Specialty Start Date End Date Ariana Dill DNP [address] [place] [address] PCP - General 08/07/23 Rach Waddell MD 111 [facility], [facility], [address] [place] [phone] Parking Meter Servicer Obstetrics and Gynecology 05/10/23 documented as of this encounter
--- OUTSIDE RECORDS SUMMARY | 2024-11-10 02:14 | XMS_ITS | Encounter Summary ---
Author Organization [facility] Address [address] [place] [address] Care Team Providers Care Tool Builder Name Role Phone Rach Waddell MD Unavailable [phone] Ariana Dill DNP Primary Care Provider [phone] Reason for Visit * Reason Onset Date Comments Biopsy Results 02/05/2024 Encounter Details Date Type Department Care Team (Late st Contact Info) Description 02/05/2024 Telephone [facility] OBGYN Services - [facility] [address] [place], [place] [phone] Christiane Munoz NP 111 [facility], [address] [place] [address] Biopsy Results Social History Tobacco Use Types Packs/Day [...] or shopping? Answer Date of Assessment Author No 01/31/2024 16:11 EDT Leslee Deal RN documented as of this encounter Mental Status * Because of a physical, mental, or emotional condition, does this person have serious difficulty concentrating, remembering, or making decisions? Answer Entry Date Author No 01/31/2024 16:11 EDT Leslee Deal RN documented in this encounter Miscellaneous Notes * Telephone Encounter - Christiane Munoz NP - 02/05/2024 1344 EDT TC to patient notifying her of surg path results of IFRAH 2 and IFRAH 3. Needs LEEP procedure. Got premedicated before colposcopy and will do this again. She will ask her PCP to prescribe for her. Final Diagnosis A. 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 See comment. - Benign endocervical cells. B. 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 - Scant detached benign endocervical cells. Diagnosis Comment The biopsy from part A shows IFRAH 2 in areas bordering on IFRAH 3. The biopsy from part B shows detached fragments of IFRAH 2 and 3. Patient transferred to parachute rigger to schedule LEEP with Dr. Dang. documented in this encounter Plan of Treatment Upcoming Encounters Date Type Department Care Team (Late st Contact Info) Description 11/18/2024 8:15 EST Office Visit [facility] Pelvic Medicine and Reconstructive Surgery - Medical Office Building [facility] [address] [place] [address] Julia Terrell PA-C 792 [facility] Medical Office Building, [address] [place] [address] 11/25/2024 8:00 EST Rehab Therapy Visit [facility] Rehabilitation Therapy - Medical Office Building [address] [place] [address] Cira Jackson, DPT [address] [place] [address], [address] [place] [phone] 12/02/2024 8:00 EST Rehab Therapy Visit [facility] Rehabilitation Therapy - Medical Office Building [address] [place] [address] Cira Jackson DPT [address] [place] [address], [facility], [address] [place] [phone] 12/09/2024 8:00 EST Rehab Therapy Visit [facility] Rehabilitation Therapy - Medical Office Building [address] [place] [address] Cira Jackson DPT [address] [place] [address], [facility], [address] [place] [phone] 12/16/2024 9:00 EST Rehab Therapy Visit [facility] Rehabilitation Therapy - Medical Office Building [address] [place] [address] Cira Jackson DPT 792 [facility], [address] [place] [phone] 12/23/2024 9:00 EST Rehab Therapy Visit [facility] Rehabilitation Therapy - Medical Office Building [address] [place], [place] [address] Cira Jackson DPT 792 [facility], [address] [place] [phone] documented as of this encounter Visit Diagnoses Not on filedocumented in this encounter Care Teams Tool Builder Relationship Specialty Start Date End Date Ariana Dill DNP [address] [place] [address] PCP - General 08/07/23 Rach Waddell MD 111 [facility], [facility], [address] [place] [phone] Postdoctoral Scholar Obstetrics and Gynecology 05/10/23 documented as of this encounter
--- OUTSIDE RECORDS SUMMARY | 2024-11-10 02:14 | XMS_ITS | Encounter Summary ---
Author Organization [facility] Address [address] [place] [address] Care Team Providers Care Director Embalmer Name Role Phone Rach Waddell MD Unavailable [phone] Ariana Dill DNP Primary Care Provider [phone] Reason for Referral * Radiology Services (Routine/Next Available) - Authorization Not Required Specialty Diagnoses / Procedures Referred By Contac t Referred To Contact Diagnoses Back pain, unspecified back location, unspecified back pain laterality, unspecified chronicity Procedures XR LUMBAR SPINE BENDING VIEWS, 2 OR 3 VIEWS Cecilia Puga MD [address] [place] [phone] Phone: tel: fax: [facility] Referral ID Status Reason Start Date Expiration Date Visits Requested Visits Authorized [id number] Authorization Not Required 02/29/2024 1 1 Reason for Visit * Radiology Services (Routine/Next Available) - Authorization Not Required Specialty Diagnoses / Procedures Referred By Contac t Referred To Contact Diagnoses Back pain, unspecified back location, unspecified back pain laterality, unspecified chronicity Procedures XR LUMBAR SPINE BENDING VIEWS, 2 OR 3 VIEWS Cecilia Puga MD [address] [place] [phone] Phone: tel: fax: [facility] Referral ID Status Reason Start Date Expiration Date Visits Requested Visits Authorized [id number] Authorization Not Required 02/29/2024 1 1 Encounter Details Date Type Department Care Team (Latest Contact Info) Description 04/12/2024 10:51 EDT - 04/12/2024 23:59 EDT Hospital Encounter [facility] [address] [place] [address] Back pain, unspecified back location, unspecified back pain laterality, unspecified chronicity Discharge Disposition: Home or Self Care Social [...] Leslee Deal RN documented in this encounter Medications at Time of Discharge albuterol 90 mcg/actuation inhaler Inhale 2 Puffs as directed every 4 hours. 1 Inhaler 0 08/10/2014 clonazePAM (KLONOPIN) 1 mg tablet Take 1 Tablet by mouth 2 times daily. 07/26/2023 HYDROcodone-acet aminophen (NORCO) 5-325 mg tablet Take 1 Tablet by mouth every 8 hours as needed for Pain. 08/03/2023 ibuprofen (MOTRIN) 200 mg tablet Take 1 Tablet by mouth as needed. inhalational spacing device (BREATHERITE MDI SPACER) Use with a metered dose inhaler, as directed. May be dispensed with mask as appropriate.. 1 Each 0 08/10/2014 lidocaine 5 % (LIDODERM) 5 % patch [...] mg by mouth daily. 30 Tablet 04/01/2024 acetaminophen (TYLENOL) 500 mg tablet Take 2 Tablets by mouth every 8 hours as needed for Pain. 180 Tablet 10/29/2021 4 documented as of this encounter Discharge Disposition Disposition Code Departure Means Destination Home or Self Care documented in this encounter Plan of Treatment Upcoming Encounters Date Type Department Care Team (Late st Contact Info) Description 11/18/2024 8:15 EST Office Visit [facility] Pelvic Medicine and Reconstructive Surgery - Medical Office Building [address] [address] Julia Terrell PA-C 2 [facility] Medical Office [facility], [address] [address] 11/25/2024 8:00 EST Rehab Therapy Visit [facility] Rehabilitation Therapy - Medical Office Building [address] [place] [address] Cira Jackson, ROBERTO [address] [place] [address], [facility], [address] [place] [phone] 12/02/2024 8:00 EST Rehab Therapy Visit [facility] Rehabilitation Therapy - Medical Office Building [address] [place] [address] Cira Jackson, ROBERTO [address] [place] [address], [facility], [address] [place] [phone] 12/09/2024 8:00 EST Rehab Therapy Visit [facility] Rehabilitation Therapy - Medical Office Building [address] [place] [address] Cira Jackson DPT [address] [place] [address], [facility], [address] [place] [phone] 12/16/2024 9:00 EST Rehab Therapy Visit [facility] Rehabilitation Therapy - Medical Office Building [address] [place] [address] Cira Jackson, DPT [address] [place] [address], [facility], [address] [place] [phone] 12/23/2024 9:00 EST Rehab Therapy Visit [facility] Rehabilitation Therapy - Medical Office Building [address] [place] [address] Cira Jackson DPT [address] [place] [address], [facility], [address] [place] [address] documented as of this encounter Procedures Procedure Name Priority Date/Time Associated Diagnosis Comments XR LUMBAR SPINE BENDING VIEWS, 2 OR 3 VIEWS Routine 04/12/2024 11:04 EDT Back pain, unspecified back location, unspecified back pain laterality, unspecified chronicity documented in this encounter Results * XR LUMBAR SPINE BENDING VIEWS, 2 OR 3 VIEWS (04/12/2024 11:04 EDT) Anatomical Region Laterality Modality Computed Radiogr aphy 04/15/2024 12:4 2 EDT Narrative 04/15/2024 12:42 EDT XR LUMBAR SPINE BENDING VIEWS, 2 OR 3 VIEWS 04/12/2024 10:55 AM Clinical History/Comments: back pain;M54.9:Back pain, unspecified back location, unspecified back pain laterality, unspecified chronicity Comparison: Lumbar spine radiographs 02/12/2024 Technique: Lumbar spine. 2 views Findings: No evidence of instability on flexion and extension. Vertebral body heights are maintained. Mild disc space narrowing at L5-S1. [id number] Resulting Agency Comment [id number] Procedure Note Kitty Cavazos MD - 04/15/2024 XR LUMBAR SPINE BENDING VIEWS, 2 OR 3 VIEWS 04/12/2024 10:55 AM Clinical History/Comments: back pain;M54.9:Back pain, unspecified back location, unspecified backpain laterality, unspecified chronicity Comparison: Lumbar spine radiographs 02/12/2024 Technique: Lumbar spine. 2 views Findings: No evidence of instability on flexion and extension. Vertebral bodyheights are maintained. Mild disc space narrowing at L5-S1. [id number] Cecilia Puga MD IMG DIAGNOSTIC IMAGING ORDERABLE S Final Result documented in this encounter Visit Diagnoses Diagnosis Back pain, unspecified back location, unspecified back pain laterality, unspecified chronicity documented in this encounter Care Teams Director Embalmer Relationship Specialty Start Date End Date Ariana Dill DNP [address] [place] [address] PCP - General 08/07/23 Rach Waddell MD [address] [place] [address], [facility] [address] [place] [phone] Grocery Shopper Obstetrics and Gynecology 05/10/23 documented as of this encounter
--- OUTSIDE RECORDS SUMMARY | 2024-11-10 02:14 | XMS_ITS | Encounter Summary ---
Author Organization [facility] Address [address] [place] [address] Care Team Providers Care Mass Spec Name Role Phone Rach Waddell MD Unavailable [phone] Ariana Dill DNP Primary Care Provider [phone] Encounter Details Date Type Department Care Team (Latest Contact Info) Description 02/14/2024 8:40 EDT - 02/14/2024 23:59 EDT Hospital Encounter [facility] [address] [place] [address] Discharge Disposition: Home or Self Care Social [...] making decisions? Answer Entry Date Author Yes 02/06/2024 14:42 Leslee Victor RN documented in this encounter [...] 12 HOURS OFF 20 Patch 1 08/21/2023 naproxen (NAPROSYN) 500 mg tablet Take by mouth. 02/08/2024 acetaminophen (TYLENOL) 500 mg tablet Take 2 Tablets by mouth every 8 hours as needed for Pain. 180 Tablet 10/29/2021 cyclobenzaprine (FLEXERIL) 10 mg tablet Take by mouth as needed. (Only used for 5 days) 01/16/2024 4 HYDROcodone-acet aminophen (NORCO) 5-325 mg tablet Take 1 Tablet by mouth every 6 hours as needed for Pain. Daily Max: 4 Tablets 10 Tablet 04/05/2023 4 HYDROcodone-acet aminophen (NORCO) 5-325 mg tablet Take 1 Tablet by mouth every 6 hours as needed for Pain. Daily Max: 4 Tablets 10 Tablet 12/16/2022 4 traZODone (DESYREL) 50 mg tablet 1 Tablet as needed. 4 documented as of this encounter Discharge Disposition Disposition Code Departure Means Destination Home or Self Care documented in this encounter Plan of Treatment Upcoming Encounters Date Type Department Care Team (Late st Contact Info) Description 11/18/2024 8:15 EST Office [address] [facility] Pelvic Medicine and Reconstructive Surgery - Medical Office [address] [address] Julia Terrell PA-C [address] [place] [address] Medical Office [facility], [address] [place] [phone] 11/25/2024 8:00 EST Rehab Therapy Visit [facility] Rehabilitation Therapy - Medical Office Building [address] [place] [address] Cira Jackson DPT [address] [place] [address] [address] [place] [phone] 12/02/2024 8:00 EST Rehab Therapy Visit [facility] Rehabilitation Therapy - Medical Office Building [address] [place] [address] Cira Jackson DPT [address] [place] [address], [address] [place] [phone] 12/09/2024 8:00 EST Rehab Therapy Visit [facility] Rehabilitation Therapy - Medical Office Building [address] [place] [address] Cira Jackson DPT [address] [place] [address], [facility], [address] [place] [phone] 12/16/2024 9:00 EST Rehab Therapy Visit [facility] Rehabilitation Therapy - Medical Office Building [address] [place] [address] Cira Jackson DPT [address] [place] [address], [facility], [address] [place] [phone] 12/23/2024 9:00 EST Rehab Therapy Visit [facility] Rehabilitation Therapy - Medical Office [place] [address] [place] [address] Cira Jackson DPT [address] [place] [address], [facility], [address] [place] [phone] documented as of this encounter Procedures Procedure Name Priority Date/Time Associated Diagnosis Comments PAIN CLINIC FL LUMBAR INJECTION Routine 02/14/2024 11:03 EDT documented in this encounter Results * PAIN CLINIC FL LUMBAR INJECTION (02/14/2024 11:03 EDT) Narrative 02/14/2024 11:04 EDT This is a non-reportable exam. [facility] IMG OTHER IMAGING ORDERABLES Final Result documented in this encounter Visit Diagnoses Not on filedocumented in this encounter Care Teams Mass Spec Relationship Specialty Start Date End Date Ariana Dill DNP [address] [place] [address] PCP - General 08/07/23 Rach Waddell MD [address] [place] [address] [address] [place] [address] Hospice Registered Nurse Obstetrics and Gynecology 05/10/23 documented as of this encounter
--- OUTSIDE RECORDS SUMMARY | 2024-11-10 02:14 | XMS_ITS | Encounter Summary ---
Author Organization [facility] Address [address] [place] [address] Care Team Providers Care Welfare Project Manager Name Role Phone Rach Waddell MD Unavailable [phone] Ariana Dill DNP Primary Care Provider [phone] Reason for Referral * Radiology Services (Routine/Next Available) - Authorization Not Required Specialty Diagnoses / Procedures Referred By Contac t Referred To Contact Diagnoses Polyarthralgia Procedures XR RHEUMATOLOGY BILATERAL HANDS 2 VIEWS EACH HAND Seymour Kang MD [address] [place] [phone] Phone: tel: fax: [facility] Referral ID Status Reason Start Date Expiration Date Visits Requested Visits Authorized [id number] Authorization Not Required 02/06/2024 1 1 * Radiology Services (Routine/Next Available) - Authorization Not Required Specialty Diagnoses / Procedures Referred By Contac t Referred To Contact Diagnoses Chronic bilateral low back pain with right-sided sciatica Procedures XR SACROILIAC JOINTS 3 OR MORE VIEWS Seymour Kang MD [address] [address] Phone: tel: fax: [facility] Referral ID Status Reason Start Date Expiration Date Visits Requested Visits Authorized [id number] Authorization Not Required 02/06/2024 1 1 * Radiology Services (Routine/Next Available) - Authorization Not Required Specialty Diagnoses / Procedures Referred By Contac t Referred To Contact Diagnoses Chronic bilateral low back pain with right-sided sciatica Procedures XR LUMBAR SPINE 2-3 VIEWS Seymour Kang MD [address] [place] [phone] Phone: tel: fax: [facility] Referral ID Status Reason Start Date Expiration Date Visits Requested Visits Authorized [id number] Authorization Not Required 02/06/2024 1 1 Reason for Visit * Radiology Services (Routine/Next Available) - Authorization Not Required Specialty Diagnoses / Procedures Referred By Contac t Referred To Contact Diagnoses Chronic bilateral low back pain with right-sided sciatica Procedures XR LUMBAR SPINE 2-3 VIEWS Seymour Kang MD [address] [place] [phone] Phone: tel: fax: [facility] Referral ID Status Reason Start Date Expiration Date Visits Requested Visits Authorized [id number] Authorization Not Required 02/06/2024 1 1 Encounter Details Date Type Department Care Team (Latest Contact Info) Description 02/12/2024 15:09 EDT - 02/12/2024 23:59 EDT Hospital [facility] - [place] [id number] Chronic bilateral low back pain with right-sided sciatica; Polyarthralgia Discharge Disposition: Home or Self Care Social [...] needed for Pain. 180 Tablet 10/29/2021 4 cyclobenzaprine (FLEXERIL) 10 mg tablet Take by [...] 11/18/2024 8:15 EST Office Visit [facility] Pelvic Medicine and Reconstructive Surgery - Medical Office [address] [address] Julia Terrell PA-C [address] [place] [address] Medical Office Building, [address] [phone] 11/25/2024 8:00 EST Rehab Therapy Visit [facility] Rehabilitation Therapy - Medical Office Building [address] [place] [address] Cira Jackson, DPT 2 [facility], [facility], [address] [place] [phone] 12/02/2024 8:00 EST Rehab Therapy Visit [facility] Rehabilitation Therapy - Medical Office Building [address] [place] [address] Cira Jackson, DPT [address] [place] [address], [address] [place] [phone] 12/09/2024 8:00 EST Rehab Therapy Visit [facility] Rehabilitation Therapy - Medical Office Building [address] [place] [id number] Cira Jackson, KEMALT [address] [place], [place] [address] [place] [phone] 12/16/2024 9:00 EST Rehab Therapy Visit [facility] Rehabilitation Therapy - Medical Office Building [address] [place] [address] Cira Jackson, DPT [address] [place] [address] [address] [place] [phone] 12/23/2024 9:00 EST Rehab Therapy Visit [facility] Rehabilitation Therapy - Medical Office Building [address] [place] [address] Cira Jackson, DPT [address] [place] [address] [address] [place] [phone] documented as of this encounter Procedures Procedure Name Priority Date/Time Associated Diagnosis Comments XR RHEUMATOLOGY BILATERAL HANDS 2 VIEWS EACH HAND Routine 02/12/2024 15:28 EDT Polyarthralgia XR SACROILIAC JOINTS 3 OR MORE VIEWS Routine 02/12/2024 15:28 EDT Chronic bilateral low back pain with right-sided sciatica XR LUMBAR SPINE 2-3 VIEWS Routine 02/12/2024 15:28 EDT Chronic bilateral low back pain with right-sided sciatica documented in this encounter Results * XR RHEUMATOLOGY BILATERAL HANDS 2 VIEWS EACH HAND (02/12/2024 15:28 EDT) Anatomical Region Laterality Modality Upper Extremities Computed Radio graphy 02/12/2024 16:4 7 EDT Impressions 02/12/2024 16:47 EDT FINDINGS / IMPRESSION: 2 views of the left hand and 2 views of the right hand were obtained. There is no fracture or malalignment on either side. The joint spaces are well preserved bilaterally and no erosions are identified. [id number] Narrative 02/12/2024 16:47 EDT EXAM/TECHNIQUE: XR RHEUMATOLOGY BILATERAL HANDS 2 VIEWS EACH HAND ??02/12/2024 3:14 PM HISTORY: ?? Chronic BL hand pain, has tenderness in #1 CMC, #1-5 MCPs;M25.50:Polyarthralgia COMPARISON: None. Procedure Note Armando Paige, DO - 02/12/2024 EXAM/TECHNIQUE: XR RHEUMATOLOGY BILATERAL HANDS 2 VIEWS EACH HAND 02/12/2024 3:14 PM HISTORY: Chronic BL hand pain, has tenderness in #1 CMC, #1-5MCPs;M25.50:Polyarthralgia COMPARISON: None. IMPRESSION FINDINGS / IMPRESSION: 2 views of the left hand and 2 views of the right hand were obtained.There is no fracture or malalignment on either side. The joint spaces arewell preserved bilaterally and no erosions are identified. [id number] Seymour Kang MD IMG DIAGNOSTIC IMAGING ORDERABL ES Final Result * XR SACROILIAC JOINTS 3 OR MORE VIEWS (02/12/2024 15:28 EDT) Anatomical Region Laterality Modality Spine Computed Radiogr aphy 02/12/2024 16:4 7 EDT Impressions 02/12/2024 16:47 EDT FINDINGS / IMPRESSION: 3 views of the sacroiliac joints were obtained. The SI joints are congruent and symmetric and there is no radiographic evidence of inflammatory sacroiliitis on either side. [id number] Narrative 02/12/2024 16:47 EDT EXAM/TECHNIQUE: XR SACROILIAC JOINTS 3 OR MORE VIEWS ??02/12/2024 3:14 PM HISTORY: ?? Chronic low back pain, evaluate for any inflammatory sacroiliitis, Ankylosing Spondylitis;M54.41:Chronic bilateral low back pain with right-sided sciatica;G89.29:Chronic bilateral low back pain with right-sided sciatica COMPARISON: None. Procedure Note Armando Paige, DO - 02/12/2024 EXAM/TECHNIQUE: XR SACROILIAC JOINTS 3 OR MORE VIEWS 02/12/2024 3:14 PM HISTORY: Chronic low back pain, evaluate for any inflammatory sacroiliitis,Ankylosing Spondylitis;M54.41:Chronic bilateral low back pain withright-sided sciatica;G89.29:Chronic bilateral low back pain withright-sided sciatica COMPARISON: None. IMPRESSION FINDINGS / IMPRESSION: 3 views of the sacroiliac joints were obtained. The SI joints arecongruent and symmetric and there is no radiographic evidence ofinflammatory sacroiliitis on either side. [id number] Seymour Kang MD IM DIAGNOSTIC IMAGING ORDERABL ES Final Result * XR LUMBAR SPINE 2-3 VIEWS (02/12/2024 15:28 EDT) Anatomical Region Laterality Modality Spine Computed Radiogr aphy 02/12/2024 15:2 1 EDT Impressions 02/15/2024 8:37 EDT Mild degenerative disk disease which could be better evaluated by means of MRI as clinically indicated. THIS DOCUMENT HAS BEEN ELECTRONICALLY SIGNED BY NILSON WOODRUFF MD FOR ANY QUESTIONS OR CONCERNS REGARDING THIS REPORT PLEASE CALL [facility] AT [phone] Narrative 02/15/2024 8:37 EDT PROCEDURE INFORMATION: Exam: XR Lumbosacral Spine Exam date and time: 02/12/2024 3:21 PM Age: 33 years old Clinical indication: Other [...] marginal osteophyte formation. Soft tissues: Grossly unremarkable. Procedure Note Nilson Woodruff MD - 02/15/2024 PROCEDURE INFORMATION: Exam: XR Lumbosacral Spine Exam date and time: 02/12/2024 3:21 PM Age: 33 years old Clinical indication: Other chronic pain; Lumbago with sciatica, rightside; Additional info: Chronic low back pain, evaluate for any inflammatory sacroiliitis, ankylosing spondylitis TECHNIQUE: Imaging protocol: Radiologic exam of the lumbosacral spine. Views: 2 or 3 views. COMPARISON: MR LUMBAR SPINE WO CONTRAST 09/07/2023 10:30 AM FINDINGS: Bones/joints: Vertebral body heights are intact. Spinal alignment is maintained. The pedicles appear intact. No acute fracture is identified.There is mild multilevel facet arthrosis, disc space narrowing and marginal osteophyte formation. Soft tissues: Grossly unremarkable. IMPRESSION Mild degenerative disk disease which could be better evaluated by means ofMRI as clinically indicated. THIS DOCUMENT HAS BEEN ELECTRONICALLY SIGNED BY NILSON WOODRUFF MD FOR ANY QUESTIONS OR CONCERNS REGARDING THIS REPORT PLEASE CALL [facility] [phone] us Seymour Kang MD IMG DIAGNOSTIC IMAGING ORDERABL ES Final Result documented in this encounter Visit Diagnoses Diagnosis Chronic bilateral low back pain with right-sided sciatica Polyarthralgia Pain in joint, multiple sites documented in this encounter Care Teams Welfare Project Manager Relationship Specialty Start Date End Date Ariana Dill DNP [address] [place] [address] PCP - General 08/07/23 Rach Waddell MD [address] [place] [address] 4 [place] [address] Final Application Reviewer Obstetrics and Gynecology 05/10/23 documented as of this encounter
--- OUTSIDE RECORDS SUMMARY | 2024-11-10 02:14 | XMS_ITS | Encounter Summary ---
Author Organization [facility] Address [address] [place] [address] Care Team Providers Care Preliminary School Psychologist Name Role Phone Rach Waddell MD Unavailable [phone] Ariana Dill DNP Primary Care Provider Encounter Details Date Type Department Care Team (Late st Contact Info) Description 01/16/2024 Lab Requisition [facility] Pathology & Laboratory Medicine - [facility] [address] [place] [address] Ariana Dill DNP [address] [place], [place] [address] Tremor, unspecified; Encounter for screening for diabetes mellitus Social History Tobacco Use Types Packs/Day Years [...] of a physical, mental, or emotional condition, do you have difficulty doing errands alone such as visiting a doctor's office or shopping? (15 years old or older) Answer Date of Assessment Author No 10/27/2021 8:27 Lois Vega RN documented as of this encounter Mental Status * Because of a physical, mental, or emotional condition, do you have serious difficulty concentrating, remembering, or making decisions? (5 years old or older) Answer Entry Date Author No 10/27/2021 8:27 Lois Vega RN documented in this encounter Plan of Treatment Upcoming Encounters Date Type Department Care Team (Late st Contact Info) Description 11/18/2024 8:15 EST Office Visit [facility] Pelvic Medicine and Reconstructive Surgery - Medical Office Building [facility] [address] [place] [address] Julia Terrell PA-C 2 [facility] Medical Office Building, [address] [place] [phone] 11/25/2024 8:00 EST Rehab Therapy Visit [facility] Rehabilitation Therapy - Medical Office Building [address] [place], [place] [id number] Cira Jackson DPT 2 [facility], [facility], [address] [place] [phone] 12/02/2024 8:00 EST Rehab Therapy Visit [facility] Rehabilitation Therapy - Medical Office Building [address] [place] [address] Cira Jackson, KEMALT [address] [place] [address], [facility], [address] [place] [phone] 12/09/2024 8:00 EST Rehab Therapy Visit [facility] Rehabilitation Therapy - Medical Office Building [address] [place] [address] Cira Jackson, ROBERTO [address] [place] [address], [facility], [address] [place] [phone] 12/16/2024 9:00 EST Rehab Therapy Visit [facility] Rehabilitation Therapy - Medical Office Building [address] [place] [address] Cira Jackson, KEMALT [address] [place] [address], [facility], [address] [place] [phone] 12/23/2024 9:00 EST Rehab Therapy Visit [facility] Rehabilitation [facility] - Medical Office [address] [address] Cira Jackson, DPT [address] [place] [address], [facility], [address] [place] [phone] documented as of this encounter Procedures Procedure Name Priority Date/Time Associated Diagnosis Comments COPPER, SERUM Today 01/16/2024 17:00 EDT Tremor, unspecified DIABETES MELLITUS TYPE 1 EVALUATION Today 01/16/2024 17:00 EDT Encounter for screening for diabetes mellitus INSULIN ANTIBODIES Today 01/16/2024 17 :00 EDT Encounter for screening for diabetes mellitus CERULOPLASMIN, S Today 01/16/2024 17:0 0 EDT Tremor, unspecified GLUTAMIC ACID DECARBOXYLASE ANTIBODY Today 01/16/2024 17:00 EDT Encounter for screening for diabetes mellitus COMPREHENSIVE METABOLIC PANEL (CMP) Today 01/16/2024 17:00 EDT Tremor, unspecified documented in this encounter Results * (ABNORMAL) DIABETES MELLITUS TYPE 1 EVALUATION (01/16/2024 17:00 EDT) [facility] Diabetes Interpretation, S SEE NOTE 01/24/2024 12:53 EDT [facility] Comment: This profile is consistent with a diagnosis of type 1 diabetes mellitus. * When found in isolation, the sensitivities of these autoantibodies for type 1 diabetes are 74% (GAD65 antibody), 75% (IA-2 antibody), 69% (insulin antibody) and 69% (ZnT8). When all 4 antibodies are tested for, and at least 1 autoantibody is detected, the combined sensitivity for type 1 diabetes is 98%, with a specificity of 98-100%. * These autoantibodies may also be detectable before the clinical onset of diabetes. The cumulative risk of a seropositive patient developing diabetes is 17% for 1 antibody, 39% for 2 antibodies, 70% for 3 antibodies, and 80% for 4 antibodies. * References: Sandor CARTAGENA. Clinical applications of diabetes antibody testing. The Journal of clinical endocrinology and metabolism 2010;95:25-33. * Walter M, Abbie P, Raj M, Pooja R, Shelby M, Juan L, Forernestina J, Spike M, Lan Rodriguez, Saskia DAMIAN, Salvador Bradley. 3 Screen islet cell autoantibody JUJU: A sensitive and specific JUJU for the combined measurement of autoantibodies to SIMA, to IA-2 and to ZnT8. Clin Irving Acta. 2016;462:60-64. * Sandor CARTAGENA, Lan Rodriguez, Segundo AJ, Paco S, Vignesh GF, Gale EA. Prediction of IDDM in the general population: strategies based on combinations of autoantibody markers. Diabetes. 1997;46:1701-10. * GAD65 Ab Assay, S 0.05(H) <=0.02 nmol/L 01/24/2024 12:53 [facility] Comment: ADDITIONAL INFORMATION This test was developed and its performance characteristics determined by [facility] in a manner consistent with CLIA requirements. This test has not been cleared or approved by the U.S. Food and Drug Administration. Insulin Abs, S 0.00 0.00 - 0.02 nmol/L 01/24/2024 12:53 [facility] Comment: ADDITIONAL INFORMATION This test was developed and its performance characteristics determined by [facility] in a manner consistent with CLIA requirements. This test has not been cleared or approved by the U.S. Food and Drug Administration. ISLET ANTIGEN 2 (IA-2) AB,S 0.00 <=0.02 nmol/L 01/24/2024 12:53 [facility] Comment: ADDITIONAL INFORMATION This test was developed and its performance characteristics determined by [facility] in a manner consistent with CLIA requirements. This test has not been cleared or approved by the U.S. Food and Drug Administration. ZnT8 Ab, S <15.0 <15.0 U/mL 01/24/2024 12:53 [facility] Comment: ADDITIONAL INFORMATION This test has been modified from the rehabilitation medicine physician's instructions. Its performance characteristics were determined by [facility] in a manner consistent with CLIA requirements. This test has not been cleared or approved by the U.S. Food and Drug Administration. Test Performed by: [address] [address] Superintendent Local: Meir Arndt M.D. Ph.D.; CLIA# [id number] Blood VENOUS BLOOD / Unknown 01/16/2024 17:00 EDT 01/16/2024 20:14 EDT [facility] HEMATOLOGY & PF4 ORDERABL ES Final Result Performing Organization Address [facility] de Phone Number [address] [address] * (ABNORMAL) GLUTAMIC ACID DECARBOXYLASE ANTIBODY (01/16/2024 17:00 EDT) GAD65 Ab Assay, S 0.05(H) <=0.02 nmol/L 01/21/2024 23:54 EDT [facility] Comment: The following antibody was identified: Glutamic Acid Decarboxylase. * This profile is consistent with predisposition to thyrogastric disorders, including thyroiditis, pernicious anemia, and type 1 diabetes, but has low specificity for neurological autoimmunity. ??GAD65 antibody values less than 2.00 nmol/L have a lower positive predictive value for neurological autoimmunity than values of 20.0 nmol/L and ??higher. * ADDITIONAL INFORMATION This test was developed and its performance characteristics determined by [facility] in a manner consistent with CLIA requirements. This test has not been cleared or approved by the U.S. Food and Drug Administration. Test Performed by: [address] [address] Superintendent Local: Meir Arndt M.D. Ph.D.; CLIA# [id number] Blood VENOUS BLOOD / Unknown 01/16/2024 17:00 EDT 01/16/2024 20:14 EDT [facility] IMMUNOLOGY AND SEROLOGY O RDERABLES Final Result Performing Organization Address [facility] Co de Phone Number [address] [place] [address] * INSULIN ANTIBODIES (01/16/2024 17:00 EDT) Pathologist [facility] Insulin Abs, S 0.00 0.00 - 0.02 nmol/L 01/22/2024 20:04 EDT [facility] Comment: ADDITIONAL INFORMATION This test was developed and its performance characteristics determined by [facility] in a manner consistent with CLIA requirements. This test has not been cleared or approved by the U.S. Food and Drug Administration. Test Performed by: [address] [address] Superintendent Local: Meir Arndt M.D. Ph.D.; CLIA# [id number] Blood VENOUS BLOOD / Unknown 01/16/2024 17:00 EDT 01/16/2024 20:12 EDT [facility] CHEMISTRY & BLOOD GAS ORD ERABLES Final Result [facility] [address] [place] [address] * COMPREHENSIVE METABOLIC PANEL (CMP) (01/16/2024 17:00 EDT) Pathologist [facility] Sodium 142 136 - 145 mmol/L 01/16/2024 20:35 EDT [facility] Potassium 3.9 3.5 - 5.0 mmol/L 01/16/2024 20:35 [facility] Chloride 107 96 - 110 mmol/L 01/16/2024 20:35 [facility] CO2 Total 22 22 - 32 mmol/L 01/16/2024 20:35 [facility] Glucose 78 70 - 99 mg/dl 01/16/2024 20:35 [facility] BUN 16 10 - 26 mg/dL 01/16/2024 20:35 [facility] Creatinine 0.74 0.52 - 1.04 mg/dL 01/16/2024 20:35 [facility] eGFR 109 >60 mL/min/1.7 3m2 01/16/2024 20:35 [facility] Total Protein 7.5 6.3 - 8.2 g/dL 01/16/2024 20:35 [facility] Albumin 4.3 3.4 - 4.9 g/dL 01/16/2024 20:35 [facility] Alkaline Phosphatase 48 38 - 126 U/L 01/16/2024 20:35 [facility] AST 20 15 - 46 U/L 01/16/2024 20:35 [facility] ALT 13 <35 U/L 01/16/2024 20:35 [facility] Bilirubin, Total 0.7 <1.4 mg/dL 01/16/20 20:35 [facility] Calcium 9.1 8.5 - 10.5 mg/dL 01/16/2024 20:35 [facility] Albumin/Globulin Ratio 1.3 1.0 - 2.5 01/16/2024 20:35 [facility] Anion Gap 13 5 - 14 mmol/L 01/16/2024 20:35 [facility] Blood VENOUS BLOOD / Unknown 01/16/2024 17:00 EDT 01/16/2024 20:12 EDT [facility] CHEMISTRY & BLOOD GAS ORD ERABLES Final Result [facility] [address] [place], [place] [id number] * CERULOPLASMIN, S (01/16/2024 17:00 EDT) Ceruloplasmin, S 20.9 20.0 - 51.0 mg/dL 01/19/2024 11:01 EDT [facility] Comment: Test Performed by: [facility] - [address] [address] Superintendent Local: Meir Arndt M.D. Ph.D.; CLIA# [id number] Blood VENOUS BLOOD / Unknown 01/16/2024 17:00 EDT 01/16/2024 20:12 EDT Ariana Dill [facility] CHEMISTRY & BLOOD GAS ORD ERABLES Final Result Performing Organization Address [facility] Co de Phone Number [facility] [address] [place] [address] * COPPER, SERUM (01/16/2024 17:00 EDT) [facility] Copper, Serum 77 77 - 206 mcg/dL 01/19/2024 9:29 EDT [facility] Comment: ADDITIONAL INFORMATION This test was developed and its performance characteristics determined by [facility] in a manner consistent with CLIA requirements. This test has not been cleared or approved by the U.S. Food and Drug Administration. Test Performed by: [facility] - [facility] [address] [place] [address] Superintendent Local: Meir Arndt M.D. Ph.D.; CLIA# [id number] Blood VENOUS BLOOD / Unknown 01/16/2024 17:00 EDT 01/16/2024 20:10 EDT Ariana Dill [facility] CHEMISTRY & BLOOD GAS ORD ERABLES Final Result Performing Organization Address [facility] Co de Phone Number [facility] [address] [place] [address] documented in this encounter Visit Diagnoses Diagnosis Tremor, unspecified Encounter for screening for diabetes mellitus Screening for diabetes mellitus documented in this encounter Care Teams Preliminary School Psychologist Relationship Specialty Start Date End Date Ariana Dill DNP [address] [place] [address] PCP - General 08/07/23 Rach Waddell MD [address] [facility], [address] [place] [address] Pocket And Pulley Machine Operator Obstetrics and Gynecology 05/10/23 documented as of this encounter
--- OUTSIDE RECORDS SUMMARY | 2024-11-10 02:14 | XMS_ITS | Encounter Summary ---
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 [address] [place], [place] [address] Julia Terrell PA-C [address] [facility] Medical Office Building, [address] [place] [phone] 11/25/2024 8:00 EST Rehab Therapy Visit [facility] Rehabilitation Therapy - Medical Office Building [address] [place] [address] Cira Jackson DPT 2 [facility], [address] [place] [phone] 12/02/2024 8:00 EST Rehab Therapy Visit [facility] Rehabilitation Therapy - Medical Office Building [address] [place] [address] Cira Jackson, KEMALT [address] [place] [address], [facility], [address] [place] [phone] 12/09/2024 8:00 EST Rehab Therapy Visit [facility] Rehabilitation Therapy - Medical Office Building [address] [place] [address] Cira Jackson DPT [address] [place] [address], [facility], [address] [place] [phone] 12/16/2024 9:00 EST Rehab Therapy Visit [facility] Therapy - Medical Office Building [address] [place] [address] Cira Jackson DPT [address] [place] [address], [facility], [address] [place] [phone] 12/23/2024 9:00 EST Rehab Therapy Visit [facility] Rehabilitation Therapy - Medical Office Building [address] [place] [address] Cira Jackson, DPT [address] [place] [address], [facility], [address] [place] [phone] documented as of this encounter Procedures Procedure Name Priority Date/Time Associated Diagnosis Comments SSA/SSB PANEL Routine 02/06/2024 16:52 EDT Positive FOX (antinuclear antibody) SM (BERNABE) ANTIBODY, IGG Routine 02/06/2024 16:52 EDT Positive FOX (antinuclear antibody) HYDROTREATER OPERATOR ANTIBODY, IGG Routine 02/06/2024 16: 52 EDT Positive FOX (antinuclear antibody) DOUBLE STRANDED DNA ANTIBODY, IGG Routine 02/06/2024 16:52 EDT Positive FOX (antinuclear antibody) ALDOLASE Routine 02/06/2024 16:52 EDT Myalgia SED RATE Routine 02/06/2024 16:52 EDT Polyarthralgia C REACTIVE PROTEIN Routine 02/06/2024 16 :52 EDT Polyarthralgia documented in this encounter Results * ALDOLASE (02/06/2024 16:52 EDT) Aldolase, S 2.6 <7.7 U/L 02/08/2024 8:45 EDT [facility] Comment: Test Performed by: [facility] - [address] [address] Linux Devops Engineer: Meir Arndt M.D. Ph.D.; CLIA# [id number] Blood VENOUS BLOOD / Unknown Venipuncture / Unknown 02/06/2024 16:52 EDT 02/06/2024 17:13 EDT Seymour Kang MD CHEMISTRY & BLOOD GAS ORDERABLE S Final Result [address] [address] * SSA/SSB PANEL (02/06/2024 16:52 EDT) Ro52 Anitbody, IgG <2.3 <20.0 CU 2023 11:[address] [facility] Comment:Results were obtaine d with the WorkSnugA Flash Ro52 chemiluminescent immunoassay. Values obtained with different manufacturers' assay methods must not be used interchangeably. Ro60 Antibody, IgG <7.0 <20.0 CU 2023 11:[address] [facility] Comment:Results were obtaine d with the WorkSnugA Flash Ro60 chemiluminescent immunoassay. Values obtained with different manufacturers' assay methods must not be used interchangeably. SSB Antibody, IgG <3.3 <20.0 CU 024 11:[address] [facility] Comment:Results were obtaine d with the WorkSnugA Flash SS-B chemiluminescent immunoassay. Values obtained with different manufacturers' assay methods must not be used interchangeably. Blood VENOUS BLOOD / Unknown Venipuncture / Unknown 02/06/2024 16:52 EDT 02/06/2024 17:14 EDT us Seymour Kang MD IMMUNOLOGY AND SEROLOGY ORDERAB LES Final Result Performing Organization Address [facility] Co de Phone Number [facility] [address] [place] [address] * HYDROTREATER OPERATOR ANTIBODY, IGG (02/06/2024 16:52 EDT) HYDROTREATER OPERATOR Antibody, IgG <6.0 <20.0 CU 11:[address] [facility] Comment:Results were obtaine d with the WorkSnugA Flash HYDROTREATER OPERATOR chemilumenscent immunoassay. Values obtained with different manufacturers' assay methods may not be used interchangeably. Blood VENOUS BLOOD / Unknown Venipuncture / Unknown 02/06/2024 16:52 EDT 02/06/2024 17:14 EDT us Seymour Kang MD IMMUNOLOGY AND SEROLOGY ORDERAB LES Final Result Performing Organization Address [facility] Co de Phone Number [facility] [address] [place] [id number] * SM (BERNABE) ANTIBODY, IGG (02/06/2024 16:52 EDT) SM (Bernabe) Antibody, IgG <8.0 <20.0 CU 02/07/2024 11:[address] [facility] Comment:Results were obtaine d with the Affectv QUANTA Flash Sm chemiluminescent immunoassay. Values obtained with different manufacturers' assay methods must not be used interchangeably. Blood VENOUS BLOOD / Unknown Venipuncture / Unknown 02/06/2024 16:52 EDT 02/06/2024 17:14 EDT us Seymour Kang MD IMMUNOLOGY AND SEROLOGY ORDERAB LES Final Result Performing Organization Address [facility] Co de Phone Number [facility] [address] [place] [address] * (ABNORMAL) DOUBLE STRANDED DNA ANTIBODY, IGG (02/06/2024 16:52 EDT) [facility] dsDNA Ab, IgG 27.8(H) <27.0 IU/mL 02/07/2024 11:[address] [facility] Comment: Negative: <27.0 IU/mL Indeterminate: 27.0 - 35.0 IU/mL Positive: >35.0 IU/mL Results were obtained with WorkSnugA Flash dsDNA chemiluminescent immunoassay. Values obtained with different manufacturers' assay methods may not be used interchangeably. Blood VENOUS BLOOD / Unknown Venipuncture / Unknown 02/06/2024 16:52 EDT 02/06/2024 17:14 EDT us Seymour Kang MD IMMUNOLOGY AND SEROLOGY ORDERAB LES Final Result Performing Organization Address [facility] de Phone Number [facility] [address] [place] [id number] * SED RATE (02/06/2024 16:52 EDT) [facility] Sed Rate 4 0 - 20 mm/hr 02/06/2024 17:[address] [facility] Blood VENOUS BLOOD / Unknown Venipuncture / Unknown 02/06/2024 16:52 EDT 02/06/2024 17:11 EDT us Seymour Kang MD HEMATOLOGY & PF4 ORDERABLES Fin al Result Performing Organization Address [facility] Co de Phone Number [facility] [address] [place] [address] * C REACTIVE PROTEIN (02/06/2024 16:52 EDT) C-Reactive Protein <5.0 <10.0 mg/L 02/06/2024 17:[address] [facility] Blood VENOUS BLOOD / Unknown Venipuncture / Unknown 02/06/2024 16:52 EDT 02/06/2024 17:14 EDT us Seymour Kang MD CHEMISTRY & BLOOD GAS ORDERABLE S Final Result [facility] [address] [place], [place] [address] documented in this encounter Visit Diagnoses Diagnosis Polyarthralgia Pain in joint, multiple sites Positive FOX (antinuclear antibody) Other and unspecified nonspecific immunological findings Myalgia Mylagia and myositis, unspecified documented in this encounter Care Teams Production Shift Supervisor Relationship Specialty Start Date End Date Ariana Dill DNP [address] [place] [address] PCP - General 08/07/23 Rach Waddell MD [address] [facility], [address] [place] [phone] Automotive Electrician Helper Obstetrics and Gynecology 05/10/23 documented as of this encounter
--- OUTSIDE RECORDS SUMMARY | 2024-11-10 02:14 | XMS_ITS | Encounter Summary ---
Author Organization [facility] Address [address] [place] [address] Care Team Providers Care Hog Tender Name Role Phone Rach Waddell MD Unavailable Ariana Dill DNP Primary Care Provider [phone] Reason for Referral * Radiology Services (Routine/Next Available) - Authorization Not Required Specialty Diagnoses / Procedures [facility]erred To Contact Radiology Diagnoses Chronic bilateral low back pain with right-sided sciatica Procedures MR SI JOINTS WO CONTRAST Seymour Kang MD [address] [place] [phone] Phone: tel: fax: [facility] Referral ID Status Reason Start Date Expiration Date Visits Requested Visits Authorized [id number] Authorization Not Required 02/22/2024 1 1 Reason for Visit * Reason Comments Follow-up Encounter Details Date Type Department Care Team (Late st Contact Info) Description 02/20/2024 11:40 EDT Office Visit [facility] Rheumatology & Immunology - [address] [phone] Seymour Kang MD [address] [place] [phone] Polyarthralgia (Primary Dx); Myalgia; Chronic pain syndrome; Chronic fatigue; Chronic bilateral low back pain with right-sided sciatica; Positive FOX (antinuclear antibody) Social History Tobacco [...] Sign Reading Time Taken Comments Blood Pressure 98/54 02/20/2024 1200 EDT Pulse 77 02/20/2024 1200 EDT Temperature 36.3 ??C (97.4 ??F) 02/20/2024 1200 EDT Respiratory Rate - - Oxygen Saturation - [...] * Patient Instructions* Seymour Kang MD - 02/20/2024 11:40 EDT - you will be called for MRI of SI joints - take pictures of your joints when they are swollen and make a note of the duration you have symptoms - try Voltaren gel (Diclofenac 1%) topically over painful joints as needed (available over the counter) Return to visit in 2 months (Video) documented in this encounter Progress Notes * Seymour Kang MD - 02/20/2024 1140 EDT Division of Rheumatology and Clinical Immunology FOLLOW UP NOTE: Date of Service: 02/20/24 Reason for follow up: Polyarthralgia History of Present Illness: Mine Lynn is a 33 y.o. female. Last visit here in 01/2024. She underwent lumbar epidural steroid injection on 02/14/24. Underwent Leep procedure. Low back pain increased a little after these procedures. Yesterday she woke up with pain, swelling and stiffness in L #2 finger. Pain, swelling and stiffness is better today. In the past she has noticed similar episodes of swelling of fingers of BL hands which may last 2-3 weeks. No new symptoms in the past 2 weeks. History obtained at initial Rheumatology visit (02/06/2024): [...] during the of her first child in 2016. She has herniated disc in L-spine. Her [...] high. She came as a refugee from [facility] in [place]. Has PTSD from war, traumatic [...] didn't feel it helped. 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 Patient Active Problem List Diagnosis IFRAH III (cervical intraepithelial neoplasia grade III) with severe dysplasia No tobacco, uses marijuana HPV vaccination age 12 before IC 2008, 2010, 2012 pap neg 2016 pap insuff 2020 pap and HPV neg 2022 pap neg, HPV pos (16, 18 neg) 2023 ASC-H, HPV pos 01/2024 colpo cx bx x3 IFRAH II-III Abnormal uterine bleeding Chronic pelvic pain in female Spastic pelvic floor syndrome Urge urinary incontinence H/O section with coccygeal fracture 2016 Elective primary CS 2021 Current Outpatient Medications Medication Sig acetaminophen (TYLENOL) 500 mg tablet Take 2 Tablets by mouth every 8 hours as needed for Pain. albuterol 90 mcg/actuation inhaler Inhale 2 Puffs as directed every 4 hours. (Patient not taking: Reported on 05/10/2023) clonazePAM (KLONOPIN) 1 mg tablet Take 1 Tablet by mouth daily. cyclobenzaprine (FLEXERIL) 10 mg tablet Take by mouth as needed. (Only used for 5 days) HYDROcodone-acetaminophen (NORCO) 5-325 mg tablet Take 1 Tablet by mouth every 6 hours as needed for Pain. Daily Max: 4 Tablets (Patient not taking: Reported on 01/31/2024) HYDROcodone-acetaminophen (NORCO) 5-325 mg tablet Take 1 Tablet by mouth every 6 hours as needed for Pain. Daily Max: 4 Tablets ibuprofen (MOTRIN) 200 mg tablet Take 1 Tablet by mouth every 6 hours. inhalational spacing device (BREATHERITE MDI SPACER) Use with a metered dose inhaler, as directed. May be dispensed with mask as appropriate.. (Patient not taking: Reported on 02/14/2024) lidocaine 5 % (LIDODERM) 5 % patch APPLY 2 PATCHS ON THE SKIN ONCE DAILY UP TO 12 HOURS ON AND 12 HOURS OFF (Patient not taking: Reported on 02/14/2024) naproxen (NAPROSYN) 500 mg tablet Take by mouth. (Patient not taking: Reported on 02/14/2024) traZODone (DESYREL) 50 mg tablet 1 Tablet as needed. (Patient not taking: Reported on 02/14/2024) ALLERGIES: Imitrex [sumatriptan succinate] Past Medical History: Diagnosis Date Anxiety, generalized Ativan intermittently during Environmental allergies Pelvic floor dysfunction Past Surgical History: Procedure Laterality Date SECTION OTHER SURGICAL HISTORY 2007 Excision of periurethral cysts at [facility] Family History Problem Relation Age of Onset Asthma Mother Hypertension Father Social History Socioeconomic History Marital status: Single Spouse name: Not on file Number of children: Not on file Years of education: Not on file Highest education level: Not on file Occupational History Not on file Tobacco Use Smoking status: Never Passive exposure: Never Smokeless tobacco: Never Vaping Use Vaping Use: Never used Substance and Sexual Activity Alcohol use: No Comment: social Drug use: No Sexual activity: Not on file Other Topics Concern Not on file Social History Narrative Not on file Social Determinants of Health Financial Resource Strain: Not on file Food Insecurity: Not on file Transportation Needs: Not on file Physical Activity: Not on file Stress: Not on file Social Connections: Not on file Housing Stability: Not on file PHYSICAL EXAMINATION: BP 98/54 (BP Cuff Location: Right arm, BP Patient Position: Sitting, BP Cuff Sizes: Adult, small) Pulse 77 Temp 36.3 ??C (97.4 ??F) LMP 01/22/2024 Constitutional: Not in distress Head: Normocephalic Eyes: No erythema. Conjunctiva moist Mouth: No oral ulcers. Mucosa moist. Lymph nodes: No cervical lymphadenopathy Cardiac: Normal rate, rhythm. Normal S1S2 Pulmonary: Normal breath sounds on auscultation. Neurological: AOx3. Extremity: No edema Skin: no rashes. MSK Exam: Muscle strength: power 5/5 in b/l UE and LE in proximal and distal muscle groups Neck: Intact ROM Back: Intact ROM. Has moderate tenderness in BL SI joints, GELY: Negative Shoulder: Intact ROM. No tenderness, swelling in b/l shoulders. Elbows: No joint swelling, tenderness, erythema. Intact ROM Wrists: Mild tenderness BL wrists No swelling, warmth, Intact ROM Hands: Has moderate tenderness in BL #1 CMC, #1-5 MCPs even to light touch. No joint swelling, warmth, erythema. No tenderness or swelling in PIPs or DIPs. Able to make fists BL but with pain in L>R hands Hips: Intact ROM, no tenderness with ROM Knees, Ankles: No joint swelling, tenderness, erythema. Intact ROM Feet: not examined. No nail pitting or onycholysis No Dactylitis, Enthesitis. Review of Outside Records/Tests: LABS Procedure visit on 02/15/2024 Component Date Value Note to Patient 02/15/2024 Value:This result contains rich text formatting which cannot be displayed here. Final Diagnosis 02/15/2024 Value:This result contains rich text formatting which cannot be displayed here. Diagnosis Comment 02/15/2024 Value:This result contains rich text formatting which cannot be displayed here. Attestation 02/15/2024 Value:This result contains rich text formatting which cannot be displayed here. Clinical History 02/15/2024 Value:This result contains rich text formatting which cannot be displayed here. Gross Description 02/15/2024 Value:This result contains rich text formatting which cannot be displayed here. Performing Lab 02/15/2024 Value:This result contains rich text formatting which cannot be displayed here. Phlebotomy Only on 02/06/2024 Component Date Value C-Reactive Protein 02/06/2024 <5.0 Sed Rate 02/06/2024 4 dsDNA Ab, IgG 02/06/2024 27.8 (H) SM (Bernabe) Antibody, IgG 02/06/2024 <8.0 STEEL WOOL MACHINE OPERATOR Antibody, IgG 02/06/2024 <6.0 Ro52 Anitbody, IgG 02/06/2024 <2.3 Ro60 Antibody, IgG 02/06/2024 <7.0 SSB Antibody, IgG 02/06/2024 <3.3 Aldolase, S 02/06/2024 2.6 Office Visit on 02/06/2024 Component Date Value Hepatitis B Core Ab, Tot* 02/01/2024 Negative Hep B Surface Ag 02/01/2024 Negative Hep C Antibody 02/01/2024 Negative CCP Antibodies 02/01/2024 <2.5 Phlebotomy Only on 02/01/2024 Component Date Value TSH 02/01/2024 1.62 T4, Free 02/01/2024 1.1 Anti-Thyroglobulin 02/01/2024 <15 Thyroperoxidase Ab 02/01/2024 <28 Procedure visit on 02/01/2024 Component Date Value UPT Result 02/01/2024 Negative HN LAB COMMENT (CLINITEK* 02/01/2024 Test performed at [facility] Note to Patient 02/01/2024 Value:This result contains rich text formatting which cannot be displayed here. Final Diagnosis 02/01/2024 Value:This result contains rich text formatting which cannot be displayed here. Diagnosis Comment 02/01/2024 Value:This result contains rich text formatting which cannot be displayed here. Attestation 02/01/2024 Value:This result contains rich text formatting which cannot be displayed here. Clinical History 02/01/2024 Value:This result contains rich text formatting which cannot be displayed here. Gross Description 02/01/2024 Value:This result contains rich text formatting which cannot be displayed here. Resident/Fellow: 02/01/2024 Value:This result contains rich text formatting which cannot be displayed here. Performing Lab 02/01/2024 Value:This result contains rich text formatting which cannot be displayed here. Lab Requisition on 01/16/2024 Component Date Value Copper, Serum 01/16/2024 77 Ceruloplasmin, S 01/16/2024 20.9 Sodium 01/16/2024 142 Potassium 01/16/2024 3.9 Chloride 01/16/2024 107 CO2 Total 01/16/2024 22 Glucose 01/16/2024 78 BUN 01/16/2024 16 Creatinine 01/16/2024 0.74 eGFR 01/16/2024 109 Total Protein 01/16/2024 7.5 Albumin 01/16/2024 4.3 Alkaline Phosphatase 01/16/2024 48 AST 01/16/2024 20 ALT 01/16/2024 13 Bilirubin, Total 01/16/2024 0.7 Calcium 01/16/2024 9.1 Albumin/Globulin Ratio 01/16/2024 1.3 Anion Gap 01/16/2024 13 Insulin Abs, S 01/16/2024 0.00 GAD65 Ab Assay, S 01/16/2024 0.05 (H) Diabetes Interpretation,* 01/16/2024 SEE NOTE GAD65 Ab Assay, S 01/16/2024 0.05 (H) Insulin Abs, S 01/16/2024 0.00 ISLET ANTIGEN 2 (IA-2) A* 01/16/2024 0.00 ZnT8 Ab, S 01/16/2024 <15.0 Admission on 01/11/2024, Discharged on 01/12/2024 Component Date Value Hold 01/11/2024 Hold Hold 01/11/2024 Hold Hold 01/11/2024 Hold Hold 01/11/2024 Hold Glucose, POC 01/11/2024 99 HN LAB POC COMMENT (GLUC* 01/11/2024 Test Performed by Nursing Services WBC 01/11/2024 5.93 RBC 01/11/2024 4.30 Hemoglobin 01/11/2024 13.2 HCT 01/11/2024 36.7 MCV 01/11/2024 85 MCH 01/11/2024 30.7 MCHC 01/11/2024 36.0 (H) RDW-CV 01/11/2024 12.3 RDW-SD 01/11/2024 38.4 PLT 01/11/2024 294 MPV 01/11/2024 10.5 % Neutrophils 01/11/2024 66.9 % Lymphocytes 01/11/2024 24.5 % Monocytes 01/11/2024 8.1 % Eosinophils 01/11/2024 0.0 % Basophils 01/11/2024 0.3 % Immature Grans 01/11/2024 0.2 Absolute Neutrophils 01/11/2024 3.97 Absolute Lymphocytes 01/11/2024 1.45 Absolute Monocytes 01/11/2024 0.48 Absolute Eosinophils 01/11/2024 0.00 (L) ABS Basophils 01/11/2024 0.02 Absolute Immature Grans 01/11/2024 0.01 Type of Differential: 01/11/2024 Auto Sodium 01/11/2024 138 Potassium 01/11/2024 3.6 Chloride 01/11/2024 108 CO2 Total 01/11/2024 18 (L) Anion Gap 01/11/2024 12 Glucose 01/11/2024 116 (H) Calcium 01/11/2024 9.7 BUN 01/11/2024 9 (L) Creatinine 01/11/2024 0.52 eGFR 01/11/2024 125 WBC 01/11/2024 4.56 RBC 01/11/2024 4.07 Hemoglobin 01/11/2024 12.5 HCT 01/11/2024 35.1 MCV 01/11/2024 86 MCH 01/11/2024 30.7 MCHC 01/11/2024 35.6 RDW-CV 01/11/2024 12.3 RDW-SD 01/11/2024 38.6 PLT 01/11/2024 285 MPV 01/11/2024 10.7 % Neutrophils 01/11/2024 66.9 % Lymphocytes 01/11/2024 24.1 % Monocytes 01/11/2024 8.6 % Eosinophils 01/11/2024 0.0 % Basophils 01/11/2024 0.2 % Immature Grans 01/11/2024 0.2 Absolute Neutrophils 01/11/2024 3.05 Absolute Lymphocytes 01/11/2024 1.10 Absolute Monocytes 01/11/2024 0.39 Absolute Eosinophils 01/11/2024 0.00 (L) ABS Basophils 01/11/2024 0.01 Absolute Immature Grans 01/11/2024 0.01 Type of Differential: 01/11/2024 Auto Total Protein 01/11/2024 8.1 Albumin 01/11/2024 4.7 Bilirubin, Total 01/11/2024 1.4 (H) Conjugated Bilirubin 01/11/2024 0.0 Unconjugated Bilirubin 01/11/2024 1.0 Alkaline Phosphatase 01/11/2024 47 ALT 01/11/2024 16 AST 01/11/2024 32 Calculated Total Bilirub* 01/11/2024 1.0 Lipase 01/11/2024 94 Magnesium 01/11/2024 2.0 Troponin I (ng/mL) 01/11/2024 <0.034 NT-pro BNP 01/11/2024 120 (H) pH, Venous 01/11/2024 7.40 pCO2, Venous 01/11/2024 35 (L) pO2, Venous 01/11/2024 44 tCO2, Venous 01/11/2024 22 Temperature 01/11/2024 37.0 O2 Saturation, Venous 01/11/2024 81 Oxygen Therapy (FIO2) 01/11/2024 Base Level 01/11/2024 -3.00 (L) FLU A RNA Result (FLARES) 01/11/2024 Negative FLU B RNA Result (FLBRES) 01/11/2024 Negative RSV RNA Result (RSVRES) 01/11/2024 Negative COVID-19 rt-PCR Result 01/11/2024 Negative Urine RBC Count, Auto 01/11/2024 0 - 2 Urine WBC Count, Auto 01/11/2024 0 - 3 Urine Squamous Count, Au* 01/11/2024 None Seen Urine Hyaline Cast Count* 01/11/2024 <=10 Urine Bacteria Count, Au* 01/11/2024 None Seen Beta HCG Quant, 01/11/2024 <5 Admission on 01/10/2024, Discharged on 01/11/2024 Component Date Value Glucose, POC 01/10/2024 98 HN LAB POC COMMENT (GLUC* 01/10/2024 Test Performed by Nursing Services Hold 01/10/2024 Hold Hold 01/10/2024 Hold Hold 01/10/2024 Hold Hold 01/10/2024 Hold Color UA 01/11/2024 Yellow Clarity UA 01/11/2024 Cloudy (A) Glucose UA 01/11/2024 Negative Bilirubin UA 01/11/2024 Negative Ketones UA 01/11/2024 2+ (A) Specific Adger, Urine 01/11/2024 1.007 Blood UA 01/11/2024 Negative Urobilinogen UA 01/11/2024 0.2 Nitrite UA 01/11/2024 Negative Leukocyte Esterase UA 01/11/2024 Negative Protein UA 01/11/2024 Negative pH, UA 01/11/2024 5.5 Urine RBC Count, Auto 01/11/2024 0 - 2 Urine WBC Count, Auto 01/11/2024 0 - 3 Urine Squamous Count, Au* 01/11/2024 None Seen Urine Hyaline Cast Count* 01/11/2024 <=10 Urine Bacteria Count, Au* 01/11/2024 None Seen CK 01/10/2024 54 WBC 01/10/2024 6.45 RBC 01/10/2024 4.58 Hemoglobin 01/10/2024 13.9 HCT 01/10/2024 39.8 MCV 01/10/2024 87 MCH 01/10/2024 30.3 MCHC 01/10/2024 34.9 RDW-CV 01/10/2024 12.5 RDW-SD 01/10/2024 39.7 PLT 01/10/2024 301 MPV 01/10/2024 10.3 % Neutrophils 01/10/2024 59.1 % Lymphocytes 01/10/2024 32.6 % Monocytes 01/10/2024 7.6 % Eosinophils 01/10/2024 0.2 % Basophils 01/10/2024 0.3 % Immature Grans 01/10/2024 0.2 Absolute Neutrophils 01/10/2024 3.82 Absolute Lymphocytes 01/10/2024 2.10 Absolute Monocytes 01/10/2024 0.49 Absolute Eosinophils 01/10/2024 0.01 (L) ABS Basophils 01/10/2024 0.02 Absolute Immature Grans 01/10/2024 0.01 Type of Differential: 01/10/2024 Auto Sodium 01/10/2024 140 Potassium 01/10/2024 3.3 (L) Chloride 01/10/2024 107 CO2 Total 01/10/2024 18 (L) Glucose 01/10/2024 92 BUN 01/10/2024 8 (L) Creatinine 01/10/2024 0.55 eGFR 01/10/2024 123 Total Protein 01/10/2024 9.1 (H) Albumin 01/10/2024 5.2 (H) Alkaline Phosphatase 01/10/2024 54 AST 01/10/2024 36 ALT 01/10/2024 15 Bilirubin, Total 01/10/2024 1.8 (H) Calcium 01/10/2024 9.7 Albumin/Globulin Ratio 01/10/2024 1.3 Anion Gap 01/10/2024 15 (H) Magnesium 01/10/2024 1.9 Test, Urine 01/11/2024 Negative Lab Requisition on 01/05/2024 Component Date Value Organism ID 01/05/2024 Less than 10,000 CFU/ml usual urogenital tomy. Lab Requisition on 12/29/2023 Component Date Value Specimens 12/29/2023 Value:This result contains rich text formatting which cannot be displayed here. Specimen Adequacy 12/29/2023 Satisfactory for Evaluation - transformation zone component present General Categorization 12/29/2023 Epithelial Cell Abnormality Descriptive Diagnosis 12/29/2023 Squamous Cell Abnormality - Atypical squamous cells, cannot exclude high grade squamous intraepithelial lesion (ASC-H). Educational Comments 12/29/2023 Value:This result contains rich text formatting which cannot be displayed here. Attestation 12/29/2023 By the signature below, the attending physician certifies that they have personally conducted a gross and/or microscopic examination of the described specimens and rendered or confirmed the above diagnosis. Clinical History 12/29/2023 Value:This result contains rich text formatting which cannot be displayed here. HPV 12/29/2023 Value:This result contains rich text formatting which cannot be displayed here. Performing Lab 12/29/2023 Value:This result contains rich text formatting which cannot be displayed here. Gonococcus Result 12/29/2023 Negative Chlamydia Result 12/29/2023 Negative Human Papillomavirus (HP* 12/29/2023 Positive (A) There may be more visits with results that are not included. IMAGING: XR RHEUMATOLOGY BILATERAL HANDS 2 VIEWS [...] evidence of inflammatory sacroiliitis on either side. Plan Diagnosis / Assessment: ICD-10-CM ICD-9-CM 1. Polyarthralgia M25.50 719.49 2. Myalgia M79.10 729.1 3. Chronic pain syndrome G89.4 338.4 4. Chronic fatigue R53.82 780.79 5. Chronic bilateral low back pain with right-sided sciatica M54.41 724.2 G89.29 724.3 338.29 6. Positive FOX (antinuclear antibody) R76.8 795.79 1) Polyarthralgia, Myalgia, Chronic Fatigue: - Work up Labs: - ESR: Normal (4) 01/2024, CRP: Normal (<5mg/L) 12/2023, 01/2024 - RF: (-) 12/2023, CCP: (-) 01/2024 - FOX: (1:640, Homogenous) 12/2023 - dsDNA: Indeterminate (27.8 IU/mL) 01/2024 - SM, STEEL WOOL MACHINE OPERATOR, SSA52, SSA60, SSB: (-) 01/2024 - CK: [...] left neuroforaminal narrowing at this level. - Chronic low back pain since 2015, [...] Hands, L-spine, SI joints mostly normal. - X rays of SI joints was (01/2024) negative, so ordered MRI SI joints to look for non-radiographicsacroiliitis ->> MRI SI joints (02/2024) noted no evidence of inflammatory sacroiliitis 2) Intermittent episodes of Disorientation, Shaking/tremors of BL [...] in 12/2023. Fluoroquinolones have been associated with ZIGZAGGER/psychiatric adverse effects, like dizziness, restlessness, toxic psychosis, confusion, a gitation, etc Recommendations/Evaluation: Patient Instructions - you will be called for MRI of SI joints - take pictures of your joints when they are swollen and make a note of the duration you have symptoms - try Voltaren gel (Diclofenac 1%) topically over painful joints as needed (available over the counter) Return to visit in 2 months (Video) I spent a total of 40 minutes on the date of this encounter meeting with the patient and reviewing documentation/coordinating care as described in the above note. No procedures were performed at the time of the visit. Seymour Kang MD [email or web address] Summary Functional Status: 4 Pain Tolerance: 8.5 Global Estimate: 9 Score: 21.5 Interpretation: High 02/06/2024 14:48 02/18/2024 12:29 [email or web address] SCORES AND INTERPRETATION Functional Status 4.3 4 Pain Tolerance 7.5 8.5 Global Estimate 7.5 9 RAPID3 19.3 21.5 Interpretation High High Seymour Kang MD ADDENDUM: - MRI SI joint done 02/2024. MRI did not note any evidence of inflammatory sacroiliitis. Given clinical history, exam, X rays and MRI there seems to be no evidence to suggest autoimmune rheumatologiccauses of low back pain. MRI SI joint did notice some degenerative disc disease and facet arthritis in lower Lumbar spine. MR SI JOINTS WO CONTRAST 03/14/2024 Technique: [...] in the dependent portion of the pelvis. Seymour Kang MD documented in this encounter Plan of Treatment Upcoming Encounters Date Type Department Care Team (Late st Contact Info) Description 11/18/2024 8:15 EST Office Visit [facility] Pelvic Medicine and Reconstructive Surgery - Medical Office Building [facility] [address] [place] [address] Julia Terrell PA-C [address] [facility] Medical Office Building, [address] [place] [phone] 11/25/2024 8:00 EST Rehab Therapy Visit [facility] Rehabilitation Therapy - Medical Office Building [address] [place], [place] [address] Cira Jackson, ROBERTO [address] [place] [address], [address] [place] [phone] 12/02/2024 8:00 EST Rehab Therapy Visit [facility] Rehabilitation Therapy - Medical Office Building [address] [place], [place] [phone] Cira Jackson DPT [address] [place] [address], [facility], [address] [place] [phone] 12/09/2024 8:00 EST Rehab Therapy Visit [facility] Rehabilitation Therapy - Medical Office Building [address] [place] [address] Cira Jackson DPT [address] [place] [address], [facility], [address] [place] [phone] 12/16/2024 9:00 EST Rehab Therapy Visit [facility] Rehabilitation Therapy - Medical Office Building [address] [place] [address] Cira Jackson DPT [address] [facility], [address] [place] [phone] 12/23/2024 9:00 EST Rehab Therapy Visit [facility] Rehabilitation Therapy - Medical Office Building [address] [place], [place] [id number] Cira Jackson R, DPT [address] [facility], [facility], [address] [place] [address] documented as of this encounter Results * MR SI JOINTS WO CONTRAST (03/14/2024 21:02 EDT) Anatomical Region Laterality Modality Spine Magnetic Resonan ce 03/14/2024 21:4 0 EDT Impressions 03/14/2024 21:40 EDT FINDINGS / IMPRESSION: The sacrum appears intact. [...] in the dependent portion of the pelvis. [id number] Narrative 03/14/2024 21:40 EDT Exam: MR SI JOINTS WO CONTRAST ??03/14/2024 8:34 PM Technique: MR SI JOINTS WO CONTRAST ?? Signs and Symptoms/Comments: Chronic low back pain, negative X rays of SI joints, look for any evidence of inflammatory sacroiliitis;M54.41:Chronic bilateral low back pain with right-sided sciatica;G89.29:Chronic bilateral low back pain with right-sided sciatica Comparison: Radiographs of the SI joints 02/12/2024.. Resulting Agency Comment [id number] Procedure Note Gregory Slade MD - 03/14/2024 Exam: MR SI JOINTS WO CONTRAST 03/14/2024 8:34 PM Technique: MR SI JOINTS WO CONTRAST Signs and Symptoms/Comments: Chronic low back pain, negative X rays of SIjoints, look for any evidence of inflammatory sacroiliitis;M54.41:Chronicbilateral low back pain with right-sided sciatica;G89.29:Chronic bilaterallow back pain with right-sided sciatica Comparison: Radiographs of the SI joints 02/12/2024.. IMPRESSION FINDINGS / IMPRESSION: The sacrum appears intact. The coccyx is not included. No significant arthritic changes, discrete articular osseous erosivechanges or edema-like marrow signal seen involving the SI joint on eitherside. No effusion in either SI joint. Partially included L5-S1 level shows mild disc space narrowing with discdesiccation. There are Modic type 1 edema like marrow signal changes notedalong the superior and inferior vertebral body endplates at L5-S1. Thereis mild degenerative facet arthropathy at L5-S1. There is a mainly centraldisc extrusion at L5-S1 appearing to abut the transversing right S1 nerveroot within the subarticular recess and indenting the anterior aspect ofthe thecal sac with additional mild left neuroforaminal narrowing noted atthis level as well. There is a small volume of physiologic fluid in the dependent portion ofthe pelvis. [id number] Seymour Kang MD IMG MRI ORDERABLES Final Result documented in this encounter Visit Diagnoses Diagnosis Polyarthralgia- Primary Pain in joint, multiple sites Myalgia Mylagia and myositis, unspecified Chronic pain syndrome Chronic fatigue Other malaise and fatigue Chronic bilateral low back pain with right-sided sciatica Positive FOX (antinuclear antibody) Other and unspecified nonspecific immunological findings Chronic bilateral low back pain with right-sided sciatica documented in this encounter Care Teams Hog Tender Relationship Specialty Start Date End Date Ariana Dill DNP [address] [place] [id number] PCP - General 08/07/23 Rach Waddell MD [address] [place] [address] [address] [place] [address] Marine Gear Keeper Obstetrics and Gynecology 05/10/23 documented as of this encounter
--- OUTSIDE RECORDS SUMMARY | 2024-11-10 02:14 | XMS_ITS | Encounter Summary ---
Author Organization [facility] Address [address] [place] [address] Care Team Providers Care Combination Welder Name Role Phone Rach Waddell MD Unavailable Ariana Dill DNP Primary Care Provider [phone] Reason for Visit * Reason Comments Thyroid Problem * Referral (Routine) - Receiving Office to Obtain Authorization Specialty Diagnoses / Procedures [facility] Referred To Contact Endocrinology Diagnoses Polyarthritis, unspecified Ariana Dill, DNP [address] [place] [address] Phone: tel: fax: [facility] Endocrinology - [address] [address] Phone: tel: fax: Referral ID Status Reason Start Date Expiration Date Visits Requested Visits Authorized [id number] Receiving Office to Obtain Authorization 1 1 Encounter Details Date Type Department Care Team (Latest Contact Info) Description 01/31/2024 16:00 EDT Office Visit [facility] Endocrinology - [address] [address] Lori Arroyo MD PhD [address] [place] [address] [address] [place] [address] Abnormal TSH (Primary Dx) Social History Tobacco Use Types [...] Sign Reading Time Taken Comments Blood Pressure 96/55 01/31/2024 1611 EDT Pulse 77 01/31/2024 1611 EDT Temperature - - Respiratory Rate - - Oxygen Saturation - - Inhaled Oxygen Concentration - - Weight 54 kg (119 lb) 01/31/2024 1611 EDT Height 160 cm (5' 2.99) 01/31/2024 1611 EDT Body Mass Index 21.09 01/31/2024 1611 EDT documented in this encounter Functional Status [...] this encounter Patient Instructions * Patient Instructions* Lori Arroyo MD PhD - 01/31/2024 16:00 EDT Chronic thyroiditis or Annabel's disease can lead to a low positive titer of FOX. Annabel's thyroiditis is where the body makes antibodies that interfere with thyroid hormone production. The gland enlarges (goiter), often is lumpy, bumpy and can fail to make enough thyroid hormone (under-active gland or hypothyroidism). ABs do not lead to sym[toms but the higher TSH could lead to feeling more cold, tired, constipation, in some few people-muscle acehs and joint aches. Hypothyroid symptoms can be a little non-specific but include weight gain, fatigue, constipation, heavier menses and feeling cold. Treatment is thyroid medication. Check the TSH and FT4 today with the thyroid antibodies. You did have positive low titer of SIMA Antibody. This can be a marker for future type 1 diabetes, but it can also not be as specific as we like. The anti- insulin antibodies were absent (0) which is normal and your glucose has been normal. TSH of 6 and a normal FT4 this is subclinical hypothyroidism (mild) and TSH >15 is overt disease--or the TSH 6 waas euthyroid sick--were not feeling well and the thyroid level was off. Possibilities-one all the tests are normal-nothing done now--would repeat in 4-6mos. Two-TSH is normal but positive ABs-no medication repeat Third-TSh is 6 or higher--then start Levothyroxine oral medication Thyroid hormone is peptide while estrogen is steroid. documented in this encounter Progress Notes * Lori Arroyo MD PhD - 01/31/2024 1600 EDT Endocrinology Initial Thyroid Evaluation CHIEF COMPLAINT: Chief Complaint Patient presents with Thyroid Problem HPI: Mine Lynn is a 33 y.o. female who is seen for: ICD-10-CM ICD-9-CM 1. Abnormal TSH R79.89 790.6 HPI Mine has been under a lot of stress and she noted that she had episodes of uncontrollable lower leg shaking and leg weakness. She had a lot of labs done and showed a mildly positive FXO and TSH 6 with a normal FT4. She tels me she has a rheum appt soon. Symptoms have been present and increased intensity leading to two ER visits in December for this constellation of increased anxiety, hyperventilation with hand muscle cramping, feeling legs were weak and her gait was unstable. Notes that she felt thinking was foggy. MRI hd was unremarkable. Family history includes Non-contributory Medications: None for thyroid TSH was normal in the past taken 5 and 12 mos ago. PAST MEDICAL HISTORY Past Medical History: Diagnosis Date Anxiety, generalized Ativan intermittently during Environmental allergies Pelvic floor dysfunction Past Surgical History: Procedure Laterality Date OTHER SURGICAL HISTORY 2007 Excision of periurethral cysts at [facility] Family History Problem Relation Age of Onset Asthma Mother Hypertension Father Social History Socioeconomic History Marital status: Single Tobacco Use Smoking status: Never Smokeless tobacco: Never Vaping Use Vaping Use: Never used Substance and Sexual Activity Alcohol use: No Comment: social Drug use: No MEDICATIONS Mine has a current medication list which includes the following prescription(s): acetaminophen, albuterol, clonazepam, cyclobenzaprine, hydrocodone-acetaminophen, hydrocodone-acetaminophen, ibuprofen, inhalational spacing device, lidocaine 5 %, sertraline, and trazodone. ALLERGIES Imitrex [sumatriptan succinate] REVIEW OF SYSTEMS: ROS Denies dysphagia, hoarseness, no diarrhea or constip,has had muscle cramping. Appetite and weight are stable. No chest pain, SOB or palpitations. 11/08/2023 2:11 01/10/2024 20:09 01/31/2024 16:11 BMI AND WEIGHT Weight 109 lb 124 lb 119 lb Gained 15 lbs this year and lost recently 5 lbs. OBJECTIVE: Vitals: Blood Pressure 96/55 Pulse 77 Height 160 cm (62.99) Weight 54 kg (119 lb) Last Menstrual Period 01/22/2024 Body Mass Index 21.09 kg/m?? BMI: Body mass index is 21.09 kg/m??. Physical Exam General: alert, cooperative Eyes: no lid lag, periorbital edema, stare, proptosis or exophthalamus. EOM full. Neck: supple, symmetrical, trachea midline, no thyroidectomy scar, and thyroid: not enlarged, symmetric, no tenderness/mass/nodules Lung: non labored breathing Heart: regular rate and rhythm Abdomen: No striae, no HSM Extremities: extremities warm, atraumatic, no cyanosis or edema positive pulses bilat Pulses: 2+ and symmetric Skin: cool and dry No palmar erythema. No pigment change across knuckles or in palmar creases. Neuro: reflexes normal with no hung-up relaxation phase LAB REVIEW: Lab Results Component Value Date TSH 6.25 (H) 12/27/2023 Free T4 1.1 TSH 1.96 one year ago. 2022 TSH 0.47 - 4.68 mIU/L 0.90 ASSESSMENT: ICD-10-CM ICD-9-CM 1. Abnormal TSH R79.89 790.6 Mine had a mildly elevated TSH a month ago and this does not appear to be a cause or good explanation of her symptoms as she describes anxiety and myalgias where the TSH would either be very low or >15. We discussed that she could have early hypothyroidism, but her gland on exam today is neither small nor goitrous. Further, the U/SD today (done without charge given benign exam) did not show agoiter or abnormal gland echo-texture. We discussed that a positive FOX can be associated with other autoimmune diseases specifically chronic thyroiditis which can lead to hypothyroidism. It is noted that persons can have positive antithyroid ABs and that means they are at greater risk for becoming hypothyroid, but not all persons with these ABs do become hypothyroid as the ABS are not that specific. In any event a TSH of 6 does not really explain the symptoms she describes and might be sick euthyroidism instead-a transient elevation or lowering of the TSH due to poor appetite or illness. Hypothyroidism would lead to less anxiety,but hard to state there would be any symptoms with a TSH <15 and normal FT4. PLAN: Labs for FT4 and TSH with thyroid ABs ordered. 2. We discussed if positive ABs are present but TSH is perfectly normal, no thyroid medication would be dispensed. But if the TSH is higher than age- appropriate levels, then she would start Levothyroxine replacement and et TSH done 2-4 mos later to check that dose is good. Options for labs/interpretations and medication were discussed with the patient today. Questions were answered. Lori Arroyo MD PhD 01/31/2024 17:16 documented in this encounter Plan of Treatment Upcoming Encounters Date Type Department Care Team (Late st Contact Info) Description 11/18/2024 8:15 EST Office Visit [facility] Pelvic Medicine and Reconstructive Surgery - Medical Office Building [facility] [address] [place] [phone] Julia Terrell PA-C [address] [place] [address] Medical Office Building, [address] [place] [phone] 11/25/2024 8:00 EST Rehab Therapy Visit [facility] Rehabilitation Therapy - Medical Office Building [address] [place] [address] [phone] Cira Jackson DPT [address] [place] [address], [address] [place] [phone] 12/02/2024 8:00 EST Rehab Therapy Visit [facility] Rehabilitation Therapy - Medical Office Building [address] [place] [address] Cira Jackson DPT [address] [place] [address] [address] [place] [phone] 12/09/2024 8:00 EST Rehab Therapy Visit [facility] Rehabilitation Therapy - Medical Office Building [address] [place] [address] Cira Jackson DPT [address] [facility], [facility], [address] [place] [phone] 12/16/2024 9:00 EST Rehab Therapy Visit [facility] Rehabilitation Therapy - Medical Office Building [address] [place], [place] [address] Cira Jackson DPT [address] [facility], [facility], [address] [place] [phone] 12/23/2024 9:00 EST Rehab Therapy Visit [facility] Rehabilitation [facility] - Medical Office Building [address] [place], [place] [address] Cira Jackson DPT [address] [place] [address], [facility], [address] [place] [phone] documented as of this encounter Results * THYROID ANTIBODIES (02/01/2024 10:31 EDT) Pathologist [facility] Anti-Thyroglobulin <15 <=60 U/mL 2023 12:44 EDT [facility] Thyroperoxidase Ab <28 <=60 U/mL 2023 12:44 EDT [facility] Blood VENOUS BLOOD / Unknown Venipuncture / Unknown 02/01/2024 10:31 EDT 02/01/2024 11:03 EDT us Lori Arroyo MD PhD CHEMISTRY & BLOOD GAS ORD ERABLES Final Result [facility] [address] [place] [address] * T4 FREE (02/01/2024 10:31 EDT) T4, Free 1.1 0.8 - 2.2 ng/dL 02/01/2024 12:04 EDT [facility] Blood VENOUS BLOOD / Unknown Venipuncture / Unknown 02/01/2024 10:31 EDT 02/01/2024 11:03 EDT Lori Arroyo MD PhD CHEMISTRY & BLOOD GAS ORD ERABLES Final Result Performing Organization Address City/[facility]/ZIP Co de Phone Number [facility] [address] [place] [address] * TSH (02/01/2024 10:31 EDT) Pathologist [facility] TSH 1.62 0.47 - 4.68 mIU/L 02/01/2024 12:17 EDT [facility] Blood VENOUS BLOOD / Unknown Venipuncture / Unknown 02/01/2024 10:31 EDT 02/01/2024 11:03 EDT Narrative [facility] - 02/01/2024 12:17 EDT The results of this assay can be falsely lowered due to the consumption of Biotin. us Lori Arroyo MD PhD CHEMISTRY & BLOOD GAS ORD ERABLES Final Result Performing Organization Address [facility] Co de Phone Number [facility] [address] [place], [place] [phone] documented in this encounter Visit Diagnoses Diagnosis Abnormal TSH- Primary Other abnormal clinical finding documented in this encounter Care Teams Combination Welder Relationship Specialty Start Date End Date Ariana Dill DNP [address] [place] [address] PCP - General 08/07/23 Rach Waddell MD [address] [facility], [facility], [address] [place] [phone] Pedicab Driver Obstetrics and Gynecology 05/10/23 documented as of this encounter
--- OUTSIDE RECORDS SUMMARY | 2024-11-10 02:14 | XMS_ITS | Encounter Summary ---
Author Organization [facility] Address [address] [place] [address] Care Team Providers Care Coverstitch Machine Operator Name Role Phone Rach Waddell MD Unavailable [phone] Ariana Dill DNP Primary Care Provider [phone] Reason for Referral * Radiology Services (Routine/Next Available) - Authorization Not Required Specialty Diagnoses / Procedures Referred By Contac t Referred To Contact Diagnoses Polyarthralgia Procedures XR RHEUMATOLOGY BILATERAL HANDS 2 VIEWS EACH HAND Seymour Kang MD [address] [place] [phone] Phone: tel: fax: [employer] Referral ID Status Reason Start Date Expiration Date Visits Requested Visits Authorized [id number] Authorization Not Required 02/06/2024 1 1 * Radiology Services (Routine/Next Available) - Authorization Not Required Specialty Diagnoses / Procedures Referred By Contac t Referred To Contact Diagnoses Chronic bilateral low back pain with right-sided sciatica Procedures XR SACROILIAC JOINTS 3 OR MORE VIEWS Seymour Kang MD [address] [address] Phone: tel: fax: [employer] Referral ID Status Reason Start Date Expiration Date Visits Requested Visits Authorized [id number] Authorization Not Required 02/06/2024 1 1 * Radiology Services (Routine/Next Available) - Authorization Not Required Specialty Diagnoses / Procedures Referred By Contac t Referred To Contact Diagnoses Chronic bilateral low back pain with right-sided sciatica Procedures XR LUMBAR SPINE 2-3 VIEWS Seymour Kang MD [address] [place] [phone] Phone: tel: fax: [employer] Referral ID Status Reason Start Date Expiration Date Visits Requested Visits Authorized [id number] Authorization Not Required 02/06/2024 1 1 Reason for Visit * Reason Comments New Patient Visit * Referral (Urgent) - Receiving Office to Obtain Authorization Specialty Diagnoses / Procedures Referred By Contac t Referred To Contact Rheumatology Diagnoses FOX positive Myalgia Arthralgia Chronic pain syndrome Ariana Dill, DNP [address] [place] [address] Phone: tel: fax: [facility] Rheumatology & Immunology [address] [address] Phone: tel: fax: Referral ID Status Reason Start Date Expiration Date Visits Requested Visits Authorized [id number] Receiving Office to Obtain Authorization 1 1 Encounter Details Date Type Department Care Team (Late st Contact Info) Description 02/06/2024 14:40 EDT Office Visit [facility] Rheumatology & Immunology [address] [address] Seymour Kang MD [address] [place] [phone] Positive FOX (antinuclear antibody) (Primary Dx); Polyarthralgia; Myalgia; Chronic pain syndrome; Chronic fatigue; Chronic bilateral low back pain with right-sided sciatica; Screening for viral disease Social History Tobacco Use Types Packs/Day Years [...] Sign Reading Time Taken Comments Blood Pressure 127/61 02/06/2024 1441 EDT Pulse 92 02/06/2024 1441 EDT Temperature 36.1 ??C (97 ??F) 02/06/2024 1441 EDT Respiratory Rate - - Oxygen Saturation - - Inhaled Oxygen Concentration - - Weight 54 kg (119 lb) 02/06/2024 1441 EDT Height 160 cm (5' 2.99) 02/06/2024 1441 EDT Body Mass Index 21.09 02/06/2024 1441 EDT documented in this encounter [...] * Patient Instructions* Seymour Kang MD - 02/06/2024 14:40 EDT - get lab work today (2nd floor) - get X rays today (3rd floor) Return to visit in 2 weeks (In person) documented in this encounter Progress Notes * Seymour Kang MD - 02/06/2024 1440 EDT Division of Rheumatology and Clinical Immunology Date of Service: 02/06/24 Reason for Referral: Symptoms progressively getting worse, multiple ED visits, FOX 1:640, joint pains, myalgia, chronic pain syndrome Referring Provider: Ariana Dill DNP History of Present Illness: Mien Lynn is a 33 y.o. female with [...] high. She came as a refugee from [facility] in [place]. Has PTSD from war, traumatic [...] didn't feel it helped. 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 Patient Active Problem List Diagnosis IFRAH [...] May be dispensed with mask as appropriate.. lidocaine 5 % (LIDODERM) 5 % patch APPLY 2 PATCHS ON THE SKIN ONCE DAILY UP TO 12 HOURS ON AND 12 HOURS OFF traZODone (DESYREL) 50 mg tablet 1 Tablet as needed. ALLERGIES: Imitrex [sumatriptan succinate] Past Medical History: Diagnosis Date Anxiety, generalized Ativan intermittently during Environmental allergies Pelvic floor dysfunction Past Surgical History: Procedure Laterality Date SECTION OTHER SURGICAL HISTORY 2007 Excision of periurethral cysts at [facility] Family History Problem Relation Age of Onset [...] Stability: Not on file PHYSICAL EXAMINATION: BP 127/61 (BP Cuff Location: Right arm, BP Patient Position: Sitting, BP Cuff Sizes: Adult, long) Pulse 92 Temp 36.1 ??C (97 ??F) (Tympanic) Ht 160 cm (62.99) Wt 54 kg (119 lb) LMP 01/22/2024 BMI 21.09 kg/m?? Constitutional: Not in distress Head: Normocephalic Eyes: [...] make fists BL but with pain in BL hands Hips: Intact ROM, no tenderness with ROM Knees, Ankles, Feet: No joint swelling, tenderness, erythema. Intact ROM No nail pitting or onycholysis No Dactylitis, Enthesitis. Review of Outside Records/Tests: LABS Phlebotomy Only on 02/06/2024 Component Date Value C-Reactive Protein 02/06/2024 <5.0 Sed Rate 02/06/2024 4 Office Visit on 02/06/2024 Component Date Value Hepatitis B Core Ab, Tot* 02/01/2024 Negative Hep B Surface Ag 02/01/2024 Negative Hep C Antibody 02/01/2024 Negative Phlebotomy Only on 02/01/2024 Component Date Value TSH 02/01/2024 1.62 T4, Free 02/01/2024 1.1 Anti-Thyroglobulin 02/01/2024 <15 Thyroperoxidase Ab 02/01/2024 <28 Procedure visit on 02/01/2024 Component Date Value UPT Result 02/01/2024 Negative HN LAB COMMENT (CLINITEK* 02/01/2024 Test performed at [facility] Note to Patient 02/01/2024 Value:This result contains [...] Negative Ketones UA 01/11/2024 2+ (A) Specific Britton, Urine 01/11/2024 1.007 Blood UA 01/11/2024 Negative [...] Negative Human Papillomavirus (HP* 12/29/2023 Positive (A) Lab Requisition on 12/27/2023 Component Date Value Iron 12/27/2023 113 FOX Interpretation 12/27/2023 Positive (A) FOX Titer and Pattern 1 12/27/2023 1:640 Homogeneous C-Reactive Protein 12/27/2023 <5.0 Sodium 12/27/2023 138 Potassium 12/27/2023 4.0 Chloride 12/27/2023 104 CO2 Total 12/27/2023 26 Glucose 12/27/2023 87 BUN 12/27/2023 13 Creatinine 12/27/2023 0.61 eGFR 12/27/2023 120 Total Protein 12/27/2023 7.7 Albumin 12/27/2023 4.4 Alkaline Phosphatase 12/27/2023 49 AST 12/27/2023 26 ALT 12/27/2023 15 Bilirubin, Total 12/27/2023 1.2 Calcium 12/27/2023 9.5 Albumin/Globulin Ratio 12/27/2023 1.3 Anion Gap 12/27/2023 8 Rheumatoid Factor 12/27/2023 <8.6 TSH 12/27/2023 6.25 (H) Anaplasma phagocytophilum 12/27/2023 Negative Babesia Species 12/27/2023 Negative Lyme Ab 12/27/2023 Negative Hold 12/27/2023 Hold T4, Free 12/27/2023 1.1 There may be more visits with results that are not included. IMAGING: Plan Diagnosis / Assessment: ICD-10-CM ICD-9-CM 1. Positive FOX (antinuclear antibody) R76.8 795.79 2. Polyarthralgia M25.50 719.49 3. Myalgia M79.10 729.1 4. Chronic pain syndrome G89.4 338.4 5. Chronic fatigue R53.82 780.79 6. Chronic bilateral low back pain with right-sided sciatica M54.41 724.2 G89.29 724.3 338.29 7. Screening for viral disease Z11.59 V73.99 1) Polyarthralgia, Myalgia, Chronic Fatigue: - Work up Labs: - ESR: Normal (4) 01/2024, CRP: Normal (<5mg/L) 12/2023, 01/2024 - RF: (-) 12/2023, CCP: (Ordered*) - FOX: (1:640, Homogenous) 12/2023 - dsDNA, SM, GOLF CART ASSEMBLER, SSA52, SSA60, SSB: Ordered* 01/2024 - CK: Normal 12/2023, Aldolase: ordered* - Lyme: (-) 12/2023 - TSH: Normal 01/2024 - CBC diff, CMP: Normal 12/2023 - UA micro: Normal 12/2023 - Hep B & C screen: Negative 01/2024 - Imaging: - X ray: - Hand BL: Ordered* - L-spine: Ordered* - SI joints BL: Ordered* - MRI: - C-spine W WO contrast [...] tenderness in BL SI joint area. - Differential Dx: Possible non-inflammatory arthralgia (Osteoarthritis, Degenerative spine disease, Fibromyalgia) vs Inflammatory arthritis (possible RA vs spondyloarthritis vs undifferentiated inflammatory arthritis - given history of chronic poor non-restful sleep, anxiety, depression, PTSD, patient is at risk ofFibromyalgia - pending labs, X rays, depending on any evidence of inflammatory arthritis or not, can consider a trial of low dose prednisone vs SSZ vs HCQ etc - if X rays of SI joints negative, will order MRI SI joints to look for non- radiographic sacroiliitis 2) Intermittent episodes of Disorientation, Shaking/tremors [...] in 12/2023. Fluoroquinolones have been associated with PRODUCTION TECHNICIAN/psychiatric adverse effects, like dizziness, restlessness, toxic psychosis, confusion, a gitation, etc Recommendations/Evaluation: Patient Instructions - get lab work today (2nd floor) - get X rays today (3rd floor) Return to visit in 2 weeks (In person) I spent a total of 80 minutes on the date of this encounter meeting with the patient and reviewing documentation/coordinating care as described in the above note. No procedures were performed at the time of the visit. Seymour Kang MD documented in this encounter Plan of Treatment Upcoming Encounters Date Type Department Care Team (Late st Contact Info) Description 11/18/2024 8:15 EST Office Visit [facility] Pelvic Medicine and Reconstructive Surgery - Medical Office [facility] [address] [place] [phone] Julia Terrell PA-C [address] [place] [address] Medical Office Building, [address] [place] [phone] 11/25/2024 8:00 EST Rehab Therapy Visit [facility] Rehabilitation Therapy - Medical Office Building [address] [place] [address] Cira Jackson DPT [address] [place] [address], [address] [place] [phone] 12/02/2024 8:00 EST Rehab Therapy Visit [facility] Rehabilitation Therapy - Medical Office Building [address] [place] [phone] Cira Jackson DPT [address] [place] [address], [address] [place] [phone] 12/09/2024 8:00 EST Rehab Therapy Visit [facility] Rehabilitation Therapy - Medical Office Building [address] [place] [address] Cira Jackson DPT [address] [place] [address], [facility], [address] [place] [phone] 12/16/2024 9:00 EST Rehab Therapy Visit [facility] Rehabilitation Therapy - Medical Office [address] [place] [address] Cira Jackson DPT [address] [place] [address], [facility], [address] [place] [phone] 12/23/2024 9:00 EST Rehab Therapy Visit [facility] Rehabilitation [facility] - Medical Office Building [address] [place] [address] Cira Jackson, ROBERTO [address] [place] [address], [facility], [address] [place] [phone] documented as of this encounter Procedures Procedure Name Priority Date/Time Associated Diagnosis Comments CCP ANTIBODIES Add-On 02/01/2024 10:31 EDT Polyarthralgia HEPATITIS C AB W REFLEX TO HCV RNA BY PCR Add-On 02/01/2024 10:31 EDT Screening for viral disease HEPATITIS B CORE ANTIBODY (TOTAL) Add-On 02/01/2024 10:31 EDT Screening for viral disease HEPATITIS B SURFACE ANTIGEN Add-On 02/01/2024 10:31 EDT Screening for viral disease documented in this encounter Results * XR [...] preserved bilaterally and no erosions are identified. [id number] Narrative 02/12/2024 16:47 EDT EXAM/TECHNIQUE: XR RHEUMATOLOGY [...] preserved bilaterally and no erosions are identified. [id number] Seymour Kang MD IMG DIAGNOSTIC IMAGING ORDERABL [...] evidence of inflammatory sacroiliitis on either side. [id number] Narrative 02/12/2024 16:47 EDT EXAM/TECHNIQUE: XR SACROILIAC [...] radiographic evidence ofinflammatory sacroiliitis on either side. [id number] Seymour Kang MD IMG DIAGNOSTIC IMAGING ORDERABL ES Final Result * XR LUMBAR SPINE 2-3 VIEWS (02/12/2024 15:28 EDT) Anatomical Region Laterality Modality Spine Computed Radiogr aphy 02/12/2024 15:2 1 EDT Impressions 02/15/2024 8:37 EDT Mild degenerative disk disease which could be better evaluated by means of MRI as clinically indicated. THIS DOCUMENT HAS BEEN ELECTRONICALLY SIGNED BY COURT WOODRUFF MD FOR ANY QUESTIONS OR CONCERNS REGARDING THIS REPORT PLEASE CALL [facility] AT [phone] Narrative 02/15/2024 8:37 EDT PROCEDURE INFORMATION: Exam: [...] formation. Soft tissues: Grossly unremarkable. Procedure Note Court Woodruff MD - 02/15/2024 PROCEDURE INFORMATION: Exam: [...] THIS DOCUMENT HAS BEEN ELECTRONICALLY SIGNED BY COURT WOODRUFF MD FOR ANY QUESTIONS OR CONCERNS REGARDING THIS REPORT PLEASE CALL [facility] [phone] Seymour Kang MD IMG DIAGNOSTIC IMAGING ORDERABL ES Final Result * ALDOLASE (02/06/2024 16:52 EDT) Aldolase, S 2.6 <7.7 U/L 02/08/2024 8:45 EDT [facility] [email or web address] Comment: Test Performed by: [address] [address] Hash Slinger: Meir Arndt M.D. Ph.D.; CLIA# [id number] Blood VENOUS BLOOD / Unknown Venipuncture / Unknown 02/06/2024 16:52 EDT 02/06/2024 17:13 EDT Seymour Kang MD CHEMISTRY & BLOOD GAS ORDERABLE S Final Result [address] [address] * SSA/SSB PANEL (02/06/2024 16:52 EDT) Ro52 Anitbody, IgG <2.3 <20.0 CU 2023 11:36 EDT [facility] Comment:Results were obtaine d with the [employer]ight[employer] Flash Ro52 chemiluminescent immunoassay. Values obtained with different manufacturers' assay methods must not be used interchangeably. Ro60 Antibody, IgG <7.0 <20.0 CU 2023 11:36 EDT [facility] Comment:Results were obtaine d with the [employer]-Sight[employer] Flash Ro60 chemiluminescent immunoassay. Values obtained with different manufacturers' assay methods must not be used interchangeably. SSB Antibody, IgG <3.3 <20.0 CU 024 11:36 EDT [facility] Comment:Results were obtaine d with the [employer] Flash SS-B chemiluminescent immunoassay. Values obtained with different manufacturers' assay methods must not be used interchangeably. Blood VENOUS BLOOD / Unknown Venipuncture / Unknown 02/06/2024 16:52 EDT 02/06/2024 17:14 EDT Seymour Kang MD IMMUNOLOGY AND SEROLOGY ORDERAB LES Final Result Performing Organization Address [facility] Co de Phone Number [facility] [address] [place] [address] * GOLF CART ASSEMBLER ANTIBODY, IGG (02/06/2024 16:52 EDT) GOLF CART ASSEMBLER Antibody, IgG <6.0 <20.0 CU 024 11:36 EDT [facility] Comment:Results were obtaine d with the [employer]ight[employer] Flash GOLF CART ASSEMBLER chemilumenscent immunoassay. Values obtained with different manufacturers' assay methods may not be used interchangeably. Blood VENOUS BLOOD / Unknown Venipuncture / Unknown 02/06/2024 16:52 EDT 02/06/2024 17:14 EDT Seymour Kang MD IMMUNOLOGY AND SEROLOGY ORDERAB LES Final Result [facility] [address] [place] [address] * SM (BERNABE) ANTIBODY, IGG (02/06/2024 16:52 EDT) [facility] SM (Bernabe) Antibody, IgG <8.0 <20.0 CU 02/07/2024 11:36 EDT [facility] Comment:Results were obtaine d with the [employer] QUANTA Flash Sm chemiluminescent immunoassay. Values obtained with different manufacturers' assay methods must not be used interchangeably. Blood VENOUS BLOOD / Unknown Venipuncture / Unknown 02/06/2024 16:52 EDT 02/06/2024 17:14 EDT us Seymour Kang MD IMMUNOLOGY AND SEROLOGY ORDERAB LES Final Result Performing Organization Address [facility] de Phone Number [facility] [address] [place] [address] * (ABNORMAL) DOUBLE STRANDED DNA ANTIBODY, IGG (02/06/2024 16:52 EDT) [facility] dsDNA Ab, IgG 27.8(H) <27.0 IU/mL 02/07/2024 11:36 EDT [facility] Comment: Negative: <27.0 IU/mL Indeterminate: 27.0 - 35.0 IU/mL Positive: >35.0 IU/mL Results were obtained with [employer] Flash dsDNA chemiluminescent immunoassay. Values obtained with different manufacturers' assay methods may not be used interchangeably. Blood VENOUS BLOOD / Unknown Venipuncture / Unknown 02/06/2024 16:52 EDT 02/06/2024 17:14 EDT us Seymour Kang MD IMMUNOLOGY AND SEROLOGY ORDERAB LES Final Result Performing Organization Address [facility] Co de Phone Number [facility] [address] [place], [place] [address] * SED RATE (02/06/2024 16:52 EDT) [facility] Sed Rate 4 0 - 20 mm/hr 02/06/2024 17:23 EDT [facility] Blood VENOUS BLOOD / Unknown Venipuncture / Unknown 02/06/2024 16:52 EDT 02/06/2024 17:11 EDT us Seymour Kang MD HEMATOLOGY & PF4 ORDERABLES Fin al Result Performing Organization Address City/[facility]/ZIP Co de Phone Number [facility] [address] [place] [address] * C REACTIVE PROTEIN (02/06/2024 16:52 EDT) C-Reactive Protein <5.0 <10.0 mg/L 02/06/2024 17:53 EDT [facility] Blood VENOUS BLOOD / Unknown Venipuncture / Unknown 02/06/2024 16:52 EDT 02/06/2024 17:14 EDT us Seymour Kang MD CHEMISTRY & BLOOD GAS ORDERABLE S Final Result Performing Organization Address [facility] Co de Phone Number [facility] [address] [place] [address] * CCP ANTIBODIES (02/01/2024 10:31 EDT) CCP Antibodies <2.5 <5.0 U/mL 02/07/2024 9:56 EDT [facility] Blood VENOUS BLOOD / Unknown Venipuncture / Unknown 02/01/2024 10:31 EDT 02/01/2024 11:03 EDT us Seymour Kang MD IMMUNOLOGY AND SEROLOGY ORDERAB LES Final Result Performing Organization Address [facility] Co de Phone Number [facility] [address] [place] [address] * HEPATITIS C AB W REFLEX TO HCV RNA BY PCR (02/01/2024 10:31 EDT) Hep C Antibody Negative Negative 02/06/2024 17:23 EDT [facility] Blood VENOUS BLOOD / Unknown Venipuncture / Unknown 02/01/2024 10:31 EDT 02/01/2024 11:03 EDT us Seymour Kang MD CHEMISTRY & BLOOD GAS ORDERABLE S Final Result [facility] [address] [place] [id number] * HEPATITIS B SURFACE ANTIGEN (02/01/2024 10:31 EDT) Hep B Surface Ag Negative Negative 02/06/2024 16:54 EDT [facility] Blood VENOUS BLOOD / Unknown Venipuncture / Unknown 02/01/2024 10:31 EDT 02/01/2024 11:03 EDT us Seymour Kang MD CHEMISTRY & BLOOD GAS ORDERABLE S Final Result [facility] [address] [place] [address] * HEPATITIS B CORE ANTIBODY (TOTAL) (02/01/2024 10:31 EDT) Hepatitis B Core Ab, Total Negative Negative 02/06/2024 17:23 EDT [facility] Blood VENOUS BLOOD / Unknown Venipuncture / Unknown 02/01/2024 10:31 EDT 02/01/2024 11:03 EDT us Seymour Kang MD CHEMISTRY & BLOOD GAS ORDERABLE S Final Result [facility] [address] [place] [phone] documented in this encounter Visit Diagnoses Diagnosis Positive FOX (antinuclear antibody)- Primary Other and unspecified nonspecific immunological findings Polyarthralgia Pain in joint, multiple sites Myalgia Mylagia and myositis, unspecified Chronic pain syndrome Chronic fatigue Other malaise and fatigue Chronic bilateral low back pain with right-sided sciatica Screening for viral disease Special screening examination for unspecified viral disease Chronic bilateral low back pain with right-sided sciatica Polyarthralgia Pain in joint, multiple sites documented in this encounter Discontinued Medications Medication Sig Discontinue Reason Start Date End Da te sertraline (ZOLOFT) 25 mg tablet Take 1 Tablet by mouth daily. 10/30/2021 02/06/2024 documented as of this encounter Care Teams Coverstitch Machine Operator Relationship Specialty Start Date End Date Ariana Dill DNP [address] [place] [id number] PCP - General 08/07/23 Rach Waddell MD [address] [facility], [address] [place] [id number] Account Associate Obstetrics and Gynecology 05/10/23 documented as of this encounter
--- OUTSIDE RECORDS SUMMARY | 2024-11-10 02:14 | XMS_ITS | Encounter Summary ---
Author Organization [facility] Address [address] [place] [address] Care Team Providers Care Needle Loom Setter Name Role Phone Rach Waddell MD Unavailable [phone] Ariana Dill DNP Primary Care Provider [phone] Reason for Referral * Radiology Services (Routine/Next Available) - Authorization Not Required Specialty Diagnoses / Procedures Referred By Contac t Referred To Contact Radiology Diagnoses Chronic bilateral low back pain with right-sided sciatica Procedures MR SI JOINTS WO CONTRAST Seymour Kang MD [address] [place] [phone] Phone: tel: fax: [facility] Referral ID Status Reason Start Date Expiration Date Visits Requested Visits Authorized [id number] Authorization Not Required 02/22/2024 1 1 Reason for Visit * Radiology Services (Routine/Next Available) - Authorization Not Required Specialty Diagnoses / Procedures Referred By Contac t Referred To Contact Radiology Diagnoses Chronic bilateral low back pain with right-sided sciatica Procedures MR SI JOINTS WO CONTRAST Seymour Kang MD [address] [address] Phone: tel: fax: [facility] Referral ID Status Reason Start Date Expiration Date Visits Requested Visits Authorized [id number] Authorization Not Required 02/22/2024 1 1 Encounter Details Date Type Department Care Team (Latest Contact Info) Description 03/14/2024 20:34 EDT - 03/14/2024 23:59 EDT Hospital Encounter Fiorella Salgado MRI [address] [place] [address] Chronic bilateral low back pain with right-sided sciatica Discharge Disposition: Home or Self Care Social [...] Answer Entry Date Author Yes 02/20/2024 12:00 TEREZAT Leslee Deal RN documented in this encounter [...] and Reconstructive Surgery - Medical Office Building [facility] [address] [place] [address] Julia Terrell PA-C 2 [facility] Medical Office Building, [address] [place] [phone] 11/25/2024 8:00 EST Rehab Therapy Visit [facility] Rehabilitation Therapy - Medical Office Building [address] [place] [address] Cira Jackson DPT [address] [place] [address], [address] [place] [phone] 12/02/2024 8:00 EST Rehab Therapy Visit [facility] Rehabilitation Therapy - Medical Office Building [address] [place] [address] Cira Jackson, KEMALT [address] [place] [address], [address] [place] [phone] 12/09/2024 8:00 EST Rehab Therapy Visit [facility] Rehabilitation Therapy - Medical Office [address] [address] Cira Jackson DPT [address] [place] [address], [facility], [address] [place] [phone] 12/16/2024 9:00 EST Rehab Therapy Visit [facility] Rehabilitation Therapy - Medical Office Building [address] [place] [id number] Cira Jackson DPT [address] [place] [address], [address] [place] [phone] 12/23/2024 9:00 EST Rehab Therapy Visit [facility] Rehabilitation Therapy - Medical Office Building [address] [place] [address] Cira Jackson, DPT [address] [facility], [facility], [address] [place] [address] documented as of this encounter Procedures Procedure Name Priority Date/Time Associated Diagnosis Comments MR SI JOINTS WO CONTRAST Routine 03/14/2024 21:02 EDT Chronic bilateral low back pain with right-sided sciatica documented in this encounter Results * MR SI JOINTS [...] in the dependent portion of the pelvis. [id number] Narrative 03/14/2024 21:40 EDT Exam: MR SI [...] the SI joints 02/12/2024.. Resulting Agency Comment [id number] Procedure Note Gregory Slade MD - 03/14/2024 [...] fluid in the dependent portion ofthe pelvis. [id number] Seymour Kang MD IMG MRI ORDERABLES Final Result documented in this encounter Visit Diagnoses Diagnosis Chronic bilateral low back pain with right-sided sciatica documented in this encounter Care Teams Needle Loom Setter Relationship Specialty Start Date End Date Ariana Dill DNP [address] [place] [address] PCP - General 08/07/23 Rach Waddell MD 111 [facility], [address] [place] [address] Staff Writer Obstetrics and Gynecology 05/10/23 documented as of this encounter
--- OUTSIDE RECORDS SUMMARY | 2024-11-10 02:14 | XMS_ITS | Encounter Summary ---
Author Organization [facility] Address [address] [place] [address] Care Team Providers Care Hand Cutter Name Role Phone Rach Waddell MD Unavailable Ariana Dill DNP Primary Care Provider [phone] Reason for Visit * Reason Comments Pain Encounter Details Date Type Department Care Team (Late st Contact Info) Description 04/12/2024 10:30 EDT Office Visit [facility] Spine Program - [address] [address] Tony Schulte MD [address] [place] [address] [place] [address] Back pain, unspecified back location, unspecified back pain laterality, unspecified chronicity (Primary Dx) Social History Tobacco Use Types [...] documented in this encounter Progress Notes * Tony Schulte MD - 04/12/2024 1030 EDT Problem: 1. 100% low back pain 2. Spastic pelvic floor syndrome 3. PTSD 4. 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 She has 2 children and single parents. She notes she initially developed back pain in 2016 after labor. Since that period time she has had persisting low lumbosacral discomfort. He notes her symptoms are present constantly and exacerbated at the end of the day and during her periods or if she walks more than 5000 steps. Symptoms are improved somewhat by lying flat but never completely. She is undergone epidural injection which increased her low back pain. TENS unit, ibuprofen, chiropractic, PT, SI belt none of which have given any significant symptomatic improvement. She notes she also gets incontinence of her urine. She has been evaluated extensively by [facility] urology urology here at [facility] and is currently referred to Dr. Ackerman for urodynamic testing. Objective: Patient ambulates without antalgia. Heel and toe walk without difficulty. Spine nontender. No hairy patches or skin lesions. 5/5 EHL, tib ant, peroneal, gastroc, quad, ham, psoas. Trace knee and ankles symmetrically X-ray: AP lateral flex ex L demonstrate mild loss of disc base height at L5-S1 but no evidence of any significant arthropathy and no coronal or sagittal alignment abnormalities MRI: Demonstrates disc dehydration at L5-S1 with annular bulging with just abutment of the S1 rootsbut not any significant displacement. There is no evidence of any significant central stenosis Assessment: The patient who has incontinence. There is no neural compressive pathology in the spinethat would explain incontinence. Her back pain may be multifactorial but there is no Surgical intervention or injection that would lead to any significant symptomatic improvement. We discussed the importance of functionality and we discussed possibly the comprehensive pain referral to develop coping strategies which she would like to pursue Plan: 1. Activity tolerance 3. Comprehensive pain program referral for evaluation and consideration of training and coping strategies documented in this encounter Plan of Treatment Upcoming Encounters Date Type Department Care Team (Late st Contact Info) Description 11/18/2024 8:15 EST Office Visit [facility] Pelvic Medicine and Reconstructive Surgery - Medical Office Building [facility] [address] [place] [id number] Julia Terrell PA-C 2 [facility] Medical Office Building, [address] [place] [phone] 11/25/2024 8:00 EST Rehab Therapy Visit [facility] Rehabilitation Therapy - Medical Office Building [address] [place], [place] [id number] Cira Jackson, ROBERTO [address] [facility], [facility], [address] [place] [phone] 12/02/2024 8:00 EST Rehab Therapy Visit [facility] Rehabilitation Therapy - Medical Office Building [address] [place] [address] Cira Jackson, DPT [address] [place] [address], [facility], [address] [place] [phone] 12/09/2024 8:00 EST Rehab Therapy Visit [facility] Rehabilitation Therapy - Medical Office Building [address] [place] [address] Cira Jackson, ROBERTO [address] [place] [address], [facility], [address] [place] [phone] 12/16/2024 9:00 EST Rehab Therapy Visit [facility] Rehabilitation Therapy - Medical Office Building [address] [place] [address] Cira Jackson, KEMALT [address] [place] [address], [facility], [address] [place] [phone] 12/23/2024 9:00 EST Rehab Therapy Visit [facility] Rehabilitation Therapy - Medical Office Building [address] [place] [address] Cira Jackson, DPT [address] [place] [address], [facility], [address] [place] [phone] documented as of this encounter Visit Diagnoses Diagnosis Back pain, unspecified back location, unspecified back pain laterality, unspecified chronicity- Primary documented in this encounter Care Teams Hand Cutter Relationship Specialty Start Date End Date Ariana Dill DNP [address] [place] [id number] PCP - General 08/07/23 Rach Waddell MD 111 [facility], [facility] [address] [place] [phone] Light Coil Winder Obstetrics and Gynecology 05/10/23 documented as of this encounter
--- OUTSIDE RECORDS SUMMARY | 2024-11-10 02:14 | XMS_ITS | Encounter Summary ---
Author Organization [facility] Address [address] [place] [address] Care Team Providers Care Meat Clerk Name Role Phone Rach Waddell MD Unavailable [phone] Ariana Dill DNP Primary Care Provider [phone] Reason for Referral * Consult (Routine/Next Available) - Authorization Not Required Specialty Diagnoses / Procedures Referred By Contfamilia t Referred To Contact Urology Diagnoses Urinary urgency Irina Edmonds MD [address] [place] [address], [address] [place] [address] Phone: tel: fax: Julieta Benson PA-C [address] [address] Phone: tel: fax: Referral ID Status Reason Start Date Expiration Date Visits Requested Visits Authorized [id number] Authorization Not Required Specialty Services Required 4 1 1 Question Answer Reason for Request: urinary urgency, urinary incontinence, frequent UTIs, history of urologic trauma during childbirth; consideration of urodynamic studies Reason for Visit * Reason Comments Follow-up Encounter Details Date Type Department Care Team (Late st Contact Info) Description 04/01/2024 15:20 EDT Office Visit [facility] Adult Neurology [address] [address] Jossy Daigle MD Urinary urgency (Primary Dx) Social History Tobacco Use Types [...] Sign Reading Time Taken Comments Blood Pressure 106/78 04/01/2024 1514 EDT Pulse 72 04/01/2024 1514 EDT Temperature - - Respiratory Rate - - Oxygen Saturation 98% 04/01/2024 1514 EDT Inhaled Oxygen Concentration - - Weight - [...] Refills Last Filled Start Date End Date magnesium oxide (MAG-OX) 400 mg (241.3 mg magnesium) tablet Take 1 Tablet by mouth daily. 30 Tablet 04/01/2024 riboflavin, vitamin B2, 400 mg tablet Take 400 mg by mouth daily. 30 Tablet 04/01/2024 documented in this encounter Progress Notes * Jossy Daigle MD - 04/01/2024 1520 EDT Neurology Clinic Follow-Up Date of Service: 04/01/2024 PCP: Ariana Dill NP Reason for Visit: Urinary incontinence Memory issues Muscle shaking, muscle cramping, muscle pain Subjective History adapted from Dr. Ferrer's history in ED: Mine Lynn is a 33 y.o. female with PMHx of spastic pelvic floor syndrome, chronic pelvic pains/p pelvic fracture in 2016 during childbirth, PTSD, and anxiety who has had multiple ED presentations for a constellation of neurologic symptoms. Neurology was consulted for this. She had been having a constellation of symptoms accompanied by episodes of shaking. Since last Monday she had been feeling flushed and alternating hot/cold. She also describes seizure-like symptomsincluding disorientation, confusion, and trembling of her legs and hands associated with episodes of urinary incontinence that can happen out of nowhere while she is doing nothing in particular. The mother states the patient started hyperventilating when these symptoms came on today and the shakinglasted from 3 pm until 9 pm, approximately 6 hours. With the episode today, both of her hands were flexed and the wrist and fingers and she had a hard time extending them. 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 When she was discharged yesterday from the ED, she felt better but then she started having ringing in her ears and nausea and then her legs started trembling again out of nowhere. This time she felt more disoriented and confused. She feels like when she urinated her symptoms went away. The shaking episodes started happening in April 2023. They have happened approximately 4 times. Previous episodes have fluctuated over hours but this episode today is the longest these symptoms have lasted. She has not lost consciousness, bitten her tongue or woken up with blood in her mouth during t hese episodes. She had no recollection of these events. She does report a history of bruising and explained bruises, however. She had also been getting night sweats, woke up drenched a couple nights ago. She will have urinary incontinence while shaking. She has been wearing diapers for the past year because of a urinary incontinence issue. The patient also endorses switching her words around, feels like she is getting brain fog, and endorses short term memory loss. She has been diagnosed with PTSD and has been working with her psychiatrist. The patient initially thought these symptoms were anxiety-related because she was having episodes of dissociating about a year ago, but she has been working on her mental health and these symptoms seem to be getting worse. The patient endorses a family history of diabetes. She does not smoke or drink alcohol. The patient quit her previous job and started a new job as a [employer] for [employer]. She lives with her 2 kids and feels safe at home. She takes clonazepam PRN, hydrocodone for pain, trazodone sometimes, ibuprofen for herniated discs. She sees a psychiatrist and a PCP. She confirmed all of this history to me as well as adding that her primary concern is her urinary incontinence and that she has been told by several providers that this is neurologic in origin. She did see a urologist in 2018 (Jacque, [facility] [place] [place]) who diagnosed her with overactive bladder but I cannot see if she had any urodynamic testing suggestive of neurogenic bladder. Additionally she has had full spine imaging as well as MRI head. She does not have other signs of autonomic dysfunction. She was diagnosed with a herniated S1 disc. She also feels that she goes through periods of severe weakness particularly in her president and chief commercial officer when all the symptoms are present but then returns to baseline. Over time she doesn't feel like her strength overall has diminished. Denied myotonia but does complain of significant hand stiffness and pain. Has had workup recently including a markedly positive FOX (1:640) as well as TSH 6.4, negative CK, T4 wnl, GAD65 Ab 0.05 (ref 0.02), normal CMP, normal copper/ceruloplasmin, nml LFTs. Interval events: Since the first time I saw her she has seen endocrinology and rheumatology x2. She also had an ambulatory EEG for 24 hours. Endocrinology did not think that her TSH level was outside of normal range enough to be causing her symptoms. Her repeat TSH was normal and thyroid antibodies (anti-TGB and TPO) were negative. She did end up having the S1 epidural steroid injection in February, she did not find it helpful and actually felt that it made things much worse in terms of a pain standpoint. Didn't do anything for the urinary symptoms either. She also had an EEG for 24 hours which was normal. She did not have any episodes of dissociation while she had the EEG on. She does think she's had two episodes of confusion while driving that felt similar to her other dissociative episodes in the past month. She does feel like she's experiencing alot of brain fog lately. Not having a lot of migraines but does have a history. She is considering trying prednisone through rheumatology for possibly non- inflammatory arthralgia vs inflammatory arthritis. Review of Systems 10 point ROS negative or noncontributory unless otherwise stated above. 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 May be dispensed with mask as appropriate. lidocaine 5 % (LIDODERM) 5 % patch APPLY 2 PATCHS ON THE SKIN ONCE DAILY UP TO 12 HOURS ON AND 12 HOURS OFF magnesium oxide (MAG-OX) 400 mg, oral, DAILY naproxen (NAPROSYN) 500 mg tablet Take by mouth. riboflavin (vitamin B2) 400 mg, oral, DAILY Allergies Allergies Allergen Reactions Imitrex [Sumatriptan Succinate] Shortness Of Breath Objective Patient Vitals for the past 24 hrs: BP Pulse SpO2 04/01/24 1514 106/78 72 98 % NEUROLOGIC EXAM Mental Status & Language Awake and alert, oriented to person, place, time. Follows single and multi-step commands. Fluent speech with appropriate grammar and syntax. Naming of high and low-frequency objects, repetition intact. Cranial Nerves II: Visual martino full to confrontation. Pupils equal and reactive. Double simultaneous stimulationintact. III, IV, : EOMI with smooth pursuit. Conjugate gaze. V: Trigeminal sensation intact b/l VII: Symmetric face at rest and with activation VIII: Hearing intact to finger rub IX, X: No dysarthria, palate elevates symmetrically XI: Full strength with head turn and shoulder shrug XII: Tongue midline Motor Normal tone and bulk in upper and lower extremities. No abnormal motor movements. No drift, orbiting. Upper Extremity Strength Shoulder abduction (C5) Elbow flexion (C5,6) Elbow extension (C7) Wrist extension (C6) Finger flexion (C8) Finger abduction (T1) Right 5/5 5/5 5/5 5/5 5/5 5/5 Left 5/5 5/5 5/5 5/5 5/5 5/5 Lower Extremity Strength Hip flexion (L2,3) Knee extension (L3,4) Ankle DF (L4,5) Great toe extension (L5) Ankle PF (S1,2) Right 5/5 5/5 5/5 5/5 5/5 Left 5/5 5/5 5/5 5/5 5/5 Reflexes DTR Right Left Biceps (C5-6) ++ ++ BR (C5-6) ++ ++ Triceps (C7-8) ++ ++ Patellar (L3-4) ++ ++ Achilles (S1-2) ++ ++ Plantar flexion flexion No ankle clonus Sensation Light touch: intact symmetrically throughout Vibration: intact symmetrically throughout Cerebellar/Movement Function Finger-nose and heel smith reveal no dyssynergia or dysmetria. No truncal ataxia. Gait Normal gait speed/base, arm swing Tandem intact Romberg negative Labs/imaging reviewed: markedly positive FOX (1:640) as well as TSH 6.4, negative CK, T4 wnl, GAD65 Ab 0.05 (ref 0.02), normal CMP, normal copper/ceruloplasmin, nml LFTs MRI head w/wo 12/2023 IMPRESSION No evident acute or otherwise concerning intracranial abnormality. MRI C-spine w/wo 12/2023 IMPRESSION No cervical cord signal abnormality or abnormal cervical cord enhancement. Degenerative changes, without high-grade spinal canal stenosis. Varying degrees of neural foraminalstenosis detailed above, moderate in severity on the right at C4-C5 and both sides at C5-C6. MRI thoracic spine wo 10/2023 IMPRESSION 1. No signal abnormality within the spinal cord. 2. Degenerative disc disease with protrusions and bulges result in flattening of the ventral spinalcord at the T5-6, T6-7, T7-8, and T8-9 levels, but there is no significant spinal canal stenosis. MRI lumbar spine wo 08/2023 IMPRESSION Large central/right paracentral disc extrusion at L5-S1 abuts the traversing right S1 nerve root within the subarticular recess with mild spinal canal stenosis. Additional mild left neuroforaminal narrowing at this level. No other significant degenerative changes in the lumbar spine. Assessment Mine Lynn is a 33 y.o. female presenting to Neurology clinic for shaking spells, episodic hand weakness and pain, urinary incontinence, dissociative episodes and a recent positive SIMA-65 Ab. Difficult to tie all of her symptoms to a unifying diagnosis but her urinary incontinence goes back tochildhood per her report and worsened after childbirth. With a normal MRI head, C-spine, thoracic spine and an isolated S1 nerve root compression it's highly unlikely this is a neurogenic bladder, asthat would require some structural SAMPLE BUILDER pathology to blame her bladder dysfunction on and she does not have any. Her S1 nerve root impingement is not likely to be causing her urinary symptoms but certainly could be contributing to her pain. She also does not complain of any other autonomic dysfunction so a neurologic contribution on the basis of dysautonomia is unlikely. It may be useful for her to get looped back in with urology as they would be the ones to decide if urodynamic testing would beuseful as well as if medication would be useful. Her recent dissociative episodes + shaking spells are not consistent with seizure, and she did not have any abnormalities on her EEG suggestive of an underlying epilepsy. While she did not have any target events, I do not think she needs further testing for epilepsy. The brain fog and dissociative symptoms can sometimes occur as migraine phenomena, so will start riboflavin and magnesium to see ifthis helps at all. Overall, do not think she has a primary neurologic issue so will step back and defer to rheumatology for further testing/treatment. We can check back in after her urology appointment to see how things are going. Plan - Will refer to Dr. Ackerman for consideration of urodynamic testing - Will start magnesium 400mg and riboflavin 400mg daily Follow-up in 3 months or sooner if needed. Discussed and seen with neurology attending, Dr. Edmonds. jossy daigle md neurology chief resident pager [phone] * Irina Edmonds MD - 04/01/2024 1520 EDT Attending Note: Patient seen and personally examined by me with Dr. Jossy Dagile on 04/01/24. I agree with Dr. Daigle's examination findings and management plan as documented. documented in this encounter Plan of Treatment Upcoming Encounters Date Type Department Care Team (Late st Contact Info) Description 11/18/2024 8:15 EST Office Visit [facility] Pelvic Medicine and Reconstructive Surgery - Medical Office [facility] [address] [place], [place] [id number] Julia Terrell PA-C 2 [facility] Building, [address] [place] [phone] 11/25/2024 8:00 EST Rehab Therapy Visit [facility] Rehabilitation Therapy - Medical Office [address] [place] [address] Cira Jackson, DPT 2 [facility], [address] [place] [phone] 12/02/2024 8:00 EST Rehab Therapy Visit [facility] Rehabilitation Therapy - Medical Office [address] [place], [place] [address] Cira Jackson, ROBERTO [address] [place] [address], [facility], [address] [place] [phone] 12/09/2024 8:00 EST Rehab Therapy Visit [facility] Rehabilitation Therapy - Medical Office Building [address] [place] [address] Cira Jackson, ROBERTO [address] [place] [address], [facility], [address] [place] [phone] 12/16/2024 9:00 EST Rehab Therapy Visit [facility] - Medical Office [address] [address] Cira Jackson DPT [address] [place] [address], [address] [place] [phone] 12/23/2024 9:00 EST Rehab Therapy Visit [facility] - Medical Office Building [address] [place] [address] Cira Jackson, ROBERTO [address] [place] [address], [address] [place] [phone] Scheduled Referrals Name Type Priority Associated Diagnoses Order Schedule AMB CONS/FOLLOW UP UROLOGY Outpatient Referral Routine/Next Available Urinary urgency Expected: 04/08/2024 (Approximate), Expires: 04/01/2025 documented as of this encounter Visit Diagnoses Diagnosis Urinary urgency- Primary Urgency of urination documented in this encounter Discontinued Medications Medication Sig Discontinue Reason Start Date End Da te HYDROcodone-acetaminop hen (NORCO) 5-325 mg tablet Take 1 Tablet by mouth every 6 hours as needed for Pain. Daily Max: 4 Tablets Patient Stopped Taking 12/16/2022 04/01/2024 cyclobenzaprine (FLEXERIL) 10 mg tablet Take by mouth as needed. (Only used for 5 days) Patient Stopped Taking 01/16/2024 04/01/2024 HYDROcodone-acetaminop hen (NORCO) 5-325 mg tablet Take 1 Tablet by mouth every 6 hours as needed for Pain. Daily Max: 4 Tablets Patient Stopped Taking 04/05/2023 04/01/2024 traZODone (DESYREL) 50 mg tablet 1 Tablet as needed. Patient Stopped Taking 04/01 documented as of this encounter Care Teams Meat Clerk Relationship Specialty Start Date End Date Ariana Dill DNP [address] [place] [id number] PCP - General 08/07/23 Rach Waddell MD [address] [facility], [address] [place] [phone] Medical Technologist Generalist Obstetrics and Gynecology 05/10/23 documented as of this encounter
--- OUTSIDE RECORDS SUMMARY | 2024-11-10 02:14 | XMS_ITS | Encounter Summary ---
Author Organization [facility] Address [address] [place] [address] Care Team Providers Care Tool And Die Maker Name Role Phone Rach Waddell MD Unavailable Ariana Dill DNP Primary Care Provider [phone] Reason for Visit * Reason Comments Back Pain LESI * Prior Authorization (Routine) - Authorization Not Required Specialty Diagnoses / Procedures Referred By Contac t Referred To Contact Anesthesiology / Pain Medicine Diagnoses Other intervertebral disc displacement, lumbar region Radiculopathy, site unspecified Sacrococcygeal disorders, not elsewhere classified LESI Procedures CT NJX DX/THER SBST INTRLMNR LMBR/SAC W/IMG GDN PAIN CLINIC PROCEDURE [facility] Inter[facility] Pain [address] [place] [address] Phone: tel: fax: Josh Santos MBBS [address] [facility] [address] [place] [address] Phone: tel:[phone] fax:[phone] Referral ID Status Reason Start Date Expiration Date Visits Requested Visits Authorized [id number] Authorization Not Required 1 1 Encounter Details Date Type Department Care Team (Latest Contact Info) Description 02/14/2024 10:30 EDT Office Visit [facility] Interventional Pain [address] [place] [address] Josh Santos MBBS [address] [facility] [address] [place] [phone] Lumbar radiculopathy, chronic (Primary Dx); Lumbar disc herniation Social History Tobacco Use Types Packs/Day Years [...] Sign Reading Time Taken Comments Blood Pressure 105/51 02/14/2024 1016 EDT Pulse 76 02/14/2024 1016 EDT Temperature 36 ??C (96.8 ??F) 02/14/2024 1016 EDT Respiratory Rate 17 02/14/2024 1016 EDT Oxygen Saturation 98% 02/14/2024 1016 EDT Inhaled Oxygen Concentration - - Weight [...] this encounter Patient Instructions * Patient Instructions* Milli Lopez RN - 02/14/2024 10:30 EDT [facility] [address] [id number] Patient Instructions You have had your lumbosacral Epidural Steroid Injection. The purpose of this procedure has been toplace medication which may help relieve your pain. Steroid may be used to decrease the swelling andnerve irritation which may be causing your pain. The following information should help you over the next few days regarding what you may expect. Please take it easy for the rest of today. DO NOT drive a car for the remainder of the day. If you feel sore where the needle(s) entered for the block or develop a flare-up of pain over the next few days, please use ice on the area. You may leave the ice on for up to 20 minutes at a time. Do not use heat, as this may cause swelling. As long as your primary doctor has indicated no restrictions, you may take a mild pain medicine, such as acetaminophen (Tylenol), ibuprofen (Advil, Nuprin, Motrin IB, etc.) or aspirin, if needed. The steroid injection usually takes a few days to become effective. On average, you may notice somerelief in 3 -5 days. However, it may take up to 10 - 14 days to know whether the injection was helpful. If the block causes numbness/weakness, it should wear off within a few hours. If the area that the needle(s) were inserted becomes hot, red, swollen, or increasingly tender, or if you develop a fever (100.5 or greater) or chills along with these symptoms, please call our office immediately. If you develop increasingly severe back pain, continued numbness or weakness of the legs or changesin your bladder or bowel functions, please call our office immediately. Instructions for follow-up If you have any questions about your block, please call Patient Education Topic: Method: Handout and Verbal Taught to: Patient Barriers: None Outcomes: independent and verbalized understanding Signature: Milli Montgomery RN documented in this encounter Progress Notes * Josh Santos MBBS - 02/14/2024 1030 EDT Patient Name: Mine Lynn : 1990 Date of Service: 02/14/2024 Requesting physician: no referring provider Continuous Drier Helper:MELA Mantilla Long Term Care Pharmacist: None Procedure: Lumbar epidural steroid injections at L5 S1 Interval History: The patient reports no recent changes in the character, quality, or distribution of the pain. Thereare no recent onset of new associated symptoms such as changes in strength, sensation, or bladder control. All previous medical records including current medications, anticoagulation status, any signs of current infection, and new imaging were reviewed. Injection History: 02/14/2024: Lumbar epidural steroid injections at L5 S1 Review of Systems: Negative for any fever, chills, nausea/vomiting, headaches, chest pain, palpitations, shortness of breath, Physical Exam: Vitals: BP 105/51 (BP Cuff Location: Left arm, BP Patient Position: Sitting, BP Cuff Sizes: Adult, long) Pulse 76 Temp 36 ??C (96.8 ??F) (Tympanic) Resp 17 LMP 01/22/2024 SpO2 98% General: Patient is alert and oriented, no acute distress Lungs: symmetric chest rise, no evidence of labored breathing Skin: clear, warm, dry and intact and no rashes, bruises or petechiae noted Assessment: 1. Lumbar radiculopathy, chronic 2. Lumbar disc herniation Plan: Ms. Mine Lynn is a 33 y.o. female that presents to the pain clinic to undergo lumbar epiduralsteroid injection. All risks, benefits, and alternatives were thoroughly explained to Ms. Mine Lynn who verbally communicated understanding of the management plan. Proceed with therapeutic LESI Followup: with Cheri PROCEDURE: The patient gave informed written consent to proceed with this procedure following a detailed discussion of the risks and benefits associated with epidural steroid injection in the lumbar spine including but not limited to infection, bleeding, headache, intrathecal injection, allergic reaction, further exacerbation of current symptoms, neurological injury, and lack of efficacy. The patient was then placed in the prone position, the skin over the lumbar area was prepped with chlorhexadine, and the site was marked and draped with sterile towels. Strict sterile technique was maintained throughout the procedure. A timeout was performed with full staff present to identify the patient, verify theprocedure being performed, and review allergies. Fluoroscopy was used to visualize the L5-S1 disc space. The skin and subcutaneous tissue over this level was anesthetized by infiltration of 2% lidocaine. An 20 guage touhy needle was inserted under fluoroscopic guidance by coaxial technique and advanced towards the interspace. Loss of resistance with air was used to find the epidural space. One pass was required and there was no paresthesia. Contrast dye was injected under live fluoroscopy demonstrating a typical epidural pattern with no evidence of intravascular or intrathecal injection. After negative aspiration, 80 mg Depo-Medrol , 2cc ofNS and 1cc of 1% Lidocaine was injected. The needle was then flushed and withdrawn. The patient tolerated the procedure well, there were no apparent complications, and she was discharged in stable condition. Written and verbal discharge instructions were reviewed with the patient prior to discharge. MELA Mantilla 02/14/2024 10:29 * Kerrie Saavedra MA - 02/14/2024 1030 EDT [facility] Rooming Note Does patient have a Nuclear Medicine Pet Ct Technologist? yes Is patient NPO? (Solids since midnight & liquids for 4 hrs) Blood Thinners: Is patient on Blood Thinners? yes If yes, taking? no If stopped, who authorized stopping? Related comments: Infections: Any recent infections, fever of illnesses? no If on antibiotics, is it 7-10 days past the date of completion of antibiotics? no : (for females of child-bearing age) Is there a chance current ? no Do you have any type of implanted device? no Vaccination: Have you had or are you planning to have a vaccination in the 2 weeks? no Other: no * Milli Lopez RN - 02/14/2024 1030 EDT ATTENTION: An active Time-Out initiated by the Provider requires that all members of the proceduralsupport team are present and must stop activity until the Time-Out is completed. The Nurse will have in their possession the signed consent to compare to the verbal verification ofthe items below: [Verified] Patient identifier #1: Full Name [Verified] Patient Identifier #2: Date of [Verified] No allergy to sterile prep products, steroids, local anesthetics, band-aids, or contrastdye [Verified] Full team and patient verification of location of pain and procedure to be performed [Verified] Site marked (Region and/or Laterality) [Verified] Presence of Implantable Devices [Verified] Safety devices are in place (Grounding pad, X-rays available, and/or Magnet) [Verified] Consent signed and matches planned procedure and site marking [Verified] Active verbal communication by the entire procedural team was completed. * Kerrie Saavedra MA - 02/14/2024 1030 EDT Oswestry Low Back Disability Questionnaire Pain Intensity Pain killers give moderate relief from pain (3) Personal Care (e.g. Washing, Dressing) I can look after myself normally but it causes extra pain (1) Lifting Pain prevents me from lifting heavy weights, but I can manage light to medium weights if they are conveniently positioned (3) Walking Pain prevents me walking more than ?? mile (3) Sitting Pain prevents me from sitting more than ?? hour (3) Standing Pain prevents me from standing for more than 30 minutes (3) Sleeping Even when I take medication, I have less than 6 hrs sleep (2) Social Life Pain has restricted my social life to my home (4) Travelling Pain restricts me to short necessary journeys under 30 minutes (4) Employment/Homemaking Pain prevents me from doing anything but light duties (3) documented in this encounter Plan of Treatment Upcoming Encounters Date Type Department Care Team (Late st Contact Info) Description 11/18/2024 8:15 EST Office Visit [facility] Pelvic Medicine and Reconstructive Surgery - Medical Office Building [facility] [address] [place] [address] Julia Terrell PA-C [address] [facility] Medical Office [facility], [address] [place] [phone] 11/25/2024 8:00 EST Rehab Therapy Visit [facility] Rehabilitation Therapy - Medical Office Building [address] [place] [address] Cira Jackson, KEMALT [address] [place] [address] [address] [place] [phone] 12/02/2024 8:00 EST Rehab Therapy Visit [facility] Rehabilitation Therapy - Medical Office Building [address] [place] [address] Cira Jackson, DPT [address] [place] [address], [address] [place] [phone] 12/09/2024 8:00 EST Rehab Therapy Visit [facility] Rehabilitation Therapy - Medical Office Building [address] [place] [address] Cira Jackson DPT [address] [place] [address] [address] [place] [phone] 12/16/2024 9:00 EST Rehab Therapy Visit [facility] Rehabilitation Therapy - Medical Office Building [address] [place] [address] Cira Jackson DPT [address] [facility], [address] [place] [phone] 12/23/2024 9:00 EST Rehab Therapy Visit [facility] Rehabilitation Therapy - Medical Office Building [address] [place], [place] [phone] Cira Jackson DPT [address] [facility], [facility], [address] [place] [phone] documented as of this encounter Visit Diagnoses Diagnosis Lumbar radiculopathy, chronic- Primary Thoracic or lumbosacral neuritis or radiculitis, unspecified Lumbar disc herniation Displacement of lumbar intervertebral disc without myelopathy documented in this encounter Administered Medications Inactive Administered Medications - up to 3 most recent administrations Medication Order MAR Action Action Date Dose Rate Site Iohexol (OMNIPAQUE 180) injection 10 mL 10 mL, neural-axial, NOW X1, 1 dose, On Mon02/14/24 at 1115, Routine Given by Other 02/14/2024 10:47 EDT 1 mL methylPREDNISolone ACETATE (DEPO-MEDROL) injection 80 mg 80 mg, neural-axial, NOW X1, 1 dose, On Mon02/14/24 at 1115, Routine Given by Other 02/14/2024 10:47 EDT 80 mg documented in this encounter Historical Medications * This list may reflect changes made after this encounter. naproxen (NAPROSYN) 500 mg tablet Take by mouth. 02/08/2024 added in this encounter Care Teams Tool And Die Maker Relationship Specialty Start Date End Date Ariana Dill DNP [address] [place] [address] PCP - General 08/07/23 Rach Waddell MD [address] [place] [address], [address] [place] [address] Fly Finisher Obstetrics and Gynecology 05/10/23 documented as of this encounter
--- OUTSIDE RECORDS SUMMARY | 2024-11-10 02:14 | XMS_ITS | Encounter Summary ---
Author Organization [facility] Address [address] [place] [address] Care Team Providers Care Product Grader Name Role Phone Rach Waddell MD Unavailable Ariana Dill DNP Primary Care Provider [phone] Reason for Visit * Reason Onset Date Comments Biopsy Results 02/22/2024 Encounter Details Date Type Department Care Team (Late st Contact Info) Description 02/22/2024 Telephone [facility] OBGYN Services - [facility] [address] [place], [place] [phone] Nora Dang MD [address] [facility], [address] [place] [address] Biopsy Results Social History Tobacco [...] encounter Miscellaneous Notes * Telephone Encounter - Nora Dang MD - 02/22/2024 1702 EDT Patient called with results and recommendations. Told IFRAH II with neg margins. Needs pap and HPV in6 months. Also discussed endometriosis, she has been told likely has endometriosis because of painful menses and pelvic pain. She will f/u with her longtime AIRCRAFT LOAD CONTROLLER provider Dr. Waddell about endometriosismanagement. 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 - Margins negative for squamous intraepithelial lesion. - Endometriosis with tubal metaplasia. See comment. documented in this encounter Plan of Treatment Upcoming Encounters Date Type Department Care Team (Late st Contact Info) Description 11/18/2024 8:15 EST Office Visit [facility] Pelvic Medicine and Reconstructive Surgery - Medical Office Building [facility] [address] [place] [address] Julia Terrell PA-C [address] [facility] Medical Office Building, [address] [place] [phone] 11/25/2024 8:00 EST Rehab Therapy Visit [facility] Rehabilitation Therapy - Medical Office Building [address] [place] [address] Cira Jackson DPT [address] [place] [address], [address] [place] [phone] 12/02/2024 8:00 EST Rehab Therapy Visit [facility] Rehabilitation Therapy - Medical Office Building [address] [place] [address] Cira Jackson DPT [address] [place] [address], [address] [place] [phone] 12/09/2024 8:00 EST Rehab Therapy Visit [facility] Rehabilitation Therapy - Medical Office Building [address] [place] [address] Cira Jackson DPT [address] [place] [address], [address] [place] [phone] 12/16/2024 9:00 EST Rehab Therapy Visit [facility] Rehabilitation Therapy - Medical Office Building [address] [place] [id number] Cira Jackson DPT [address] [place] [address], [address] [place] [phone] 12/23/2024 9:00 EST Rehab Therapy Visit [facility] Rehabilitation Therapy - Medical Office Building [address] [place] [address] Cira Jackson DPT [address] [facility], [facility], [address] [place] [address] documented as of this encounter Visit Diagnoses Not on filedocumented in this encounter Care Teams Product Grader Relationship Specialty Start Date End Date Ariana Dill DNP [address] [place] [address] PCP - General 08/07/23 Rach Waddell MD [address] [place] [address], [address] [place] [phone] Human Resources Trainee Obstetrics and Gynecology 05/10/23 documented as of this encounter
--- OUTSIDE RECORDS SUMMARY | 2024-11-10 02:14 | XMS_ITS | Encounter Summary ---
Author Organization [facility] Address [address] [place] [address] Care Team Providers Care Printing Equipment Mechanic Name Role Phone Rach Waddell MD Unavailable [phone] Ariana Dill DNP Primary Care Provider [phone] Reason for Referral * Office Procedure (Routine/Next Available) - Receiving Office to Obtain Authorization Specialty Diagnoses / Procedures Referred By Contac t Referred To Contact Neurology Diagnoses Abnormal movements Procedures EEG Virginia Jj MD [address] [place] [phone] Phone: tel: fax: [facility] - [facility] ([facility]) [address] [place] [address] Phone: tel: fax: Referral ID Status Reason Start Date Expiration Date Visits Requested Visits Authorized [id number] Receiving Office to Obtain Authorization Specialty Services Required 01/24/2024 2 2 Reason for Visit * Office Procedure (Routine/Next Available) - Receiving Office to Obtain Authorization Specialty Diagnoses / Procedures Referred By Contac t Referred To Contact Neurology Diagnoses Abnormal movements Procedures EEG Virginia Jj MD [address] [place] [phone] Phone: tel: fax: [facility] ([facility]) [address] [place] [address] Phone: tel: fax: Referral ID Status Reason Start Date Expiration Date Visits Requested Visits Authorized [id number] Receiving Office to Obtain Authorization Specialty Services Required 01/24/2024 2 2 Encounter Details Date Type Department Care Team (Latest Contact Info) Description 02/22/2024 12:00 EDT - 02/22/2024 23:59 EDT Hospital Encounter [facility] ([facility]) [address] [place], [place] [id number] Abnormal movements Discharge Disposition: Home or Self Care Social [...] 10/27/2021 8:27 EST Lois Deal RN * Because of a physical, mental, [...] or Self Care documented in this encounter Procedure Notes * Ben Jimenez MD - 02/22/2024 1200 EDTAssociated Order(s): EEG [facility] Name: [facility] [address] [facility] : 1990 [place], [place] Date: 02/22/2024 Ambulatory Digital EEG Monitoring Report Referring Physician: Virginia Jj MD Study Number: [id number] Clinical Indication: 33 yo female with episodic hand weakness, urinary incontinence, and dissociation who presents for EEG evaluate for seizures. Medications: Current Outpatient Medications: acetaminophen (TYLENOL) 500 mg tablet, Take 2 Tablets by mouth every 8 hours as needed for Pain., Disp: 180 Tablet, Rfl: 0 albuterol 90 mcg/actuation inhaler, Inhale 2 Puffs as directed every 4 hours. (Patient not taking: Reported on 05/10/2023), Disp: 1 Inhaler, Rfl: 0 clonazePAM (KLONOPIN) 1 mg tablet, Take 1 Tablet by mouth daily., Disp: , Rfl: cyclobenzaprine (FLEXERIL) 10 mg tablet, Take by mouth as needed. (Only used for 5 days), Disp: , Rfl: HYDROcodone-acetaminophen (NORCO) 5-325 mg tablet, Take 1 Tablet by mouth every 6 hours as needed for Pain. Daily Max: 4 Tablets (Patient not taking: Reported on 01/31/2024), Disp: 10 Tablet, Rfl: 0 HYDROcodone-acetaminophen (NORCO) 5-325 mg tablet, Take 1 Tablet by mouth every 6 hours as needed for Pain. Daily Max: 4 Tablets, Disp: 10 Tablet, Rfl: 0 ibuprofen (MOTRIN) 200 mg tablet, Take 1 Tablet by mouth every 6 hours., Disp: , Rfl: inhalational spacing device (BREATHERITE MDI SPACER), Use with a metered dose inhaler, as directed.May be dispensed with mask as appropriate.. (Patient not taking: Reported on 02/14/2024), Disp: 1 Each, Rfl: 0 lidocaine 5 % (LIDODERM) 5 % patch, APPLY 2 PATCHS ON THE SKIN ONCE DAILY UP TO 12 HOURS ON AND 12 HOURS OFF (Patient not taking: Reported on 02/14/2024), Disp: 20 Patch, Rfl: 1 naproxen (NAPROSYN) 500 mg tablet, Take by mouth. (Patient not taking: Reported on 02/14/2024), Disp: , Rfl: traZODone (DESYREL) 50 mg tablet, 1 Tablet as needed. (Patient not taking: Reported on 02/14/2024), Disp: , Rfl: Technical Description: Ambulatory digital electroencephalographic monitoring is performed utilizing a [employer]) recorder. Silver/silver chloride EEG electrodes are placed according to the International 10-20system as well as anterior temporal electrodes, a CPz recording reference and FCz ground contract.An ECG channel is also monitored. The patient is instructed to press and Event Button in the event ofa seizure-like spell (Target Event). The patient is also instructed to maintain an activity log. The entire EEG dataset is reviewed by the attending physician. No pain assessment for this procedure is necessary. Patient does not return an event log book but reports no clinical or target events occurring duringrecord. This study is not preceded by an in laboratory EEG study. Findings: Monitoring period: 02/22/2024 at 13:16 to 02/23/2024 at 12:27 The waking background activity is continuous, well-organized, symmetric, reactive to eye opening, and consists of low-medium amplitude, 12 Hz posteriorly predominant rhythm and superimposed faster frequencies. Drowsiness is characterized by decreased muscle and eye blink artifact with waxing and waning of the background rhythms. Stage II of sleep is characterized by vertex sharp waves, K complexes, and sleep spindles. Slow wave sleep consists primarily of diffuse delta and theta activity. REM sleep with rapid eye movements and a moderate mixture of theta and alpha activity is noted. Photic stimulation and hyperventilation are not performed No epileptiform discharges or epileptic seizures are present. Numerous push button events are recorded without electrographic correlate. Patient reported no clinical or target events occurring during the study. There is diffuse myogenic, electrode, and eye blink artifact seen throughout the study. A single-lead EKG tracing is obscured by artifact. Impression: This 24 hour ambulatory EEG is normal during the awake and sleep states. Clinical Correlation: There are no focal slowing, epileptiform discharges or electrographic seizures seen although their absence does not exclude a diagnosis of epilepsy. No Target events are recorded. Margi Montiel DO PGY-5, Clinical Neurophysiology Fellow I have reviewed the entire EEG and agree with the written report. Ben Jimenez MD Professor of Neurological Sciences [facility] Medicine documented in this encounter Plan of Treatment Upcoming Encounters Date Type Department Care Team (Late st Contact Info) Description 11/18/2024 8:15 EST Office Visit [facility] Re[facility]ive Surgery - Medical Office [address] [id number] Julia Terrell PA-C [address] [place] [address] Office [facility], [address] [phone] 11/25/2024 8:00 EST Rehab Therapy Visit [facility] Rehabilitation Therapy - Medical Office [address] [id number] Cira Jackson DPT [address] [place] [address], [address] [place] [phone] 12/02/2024 8:00 EST Rehab Therapy Visit [facility] - Medical Office [address] [id number] Cira Jackson DPT [address] [place] [address], [address] [place] [phone] 12/09/2024 8:00 EST Rehab Therapy Visit [facility] - Medical Office Building [address] [place], [place] [phone] Cira Jackson, DPT [address] [place] [address], [facility], [address] [place] [phone] 12/16/2024 9:00 EST Rehab Therapy Visit [facility] - Medical Office [address] [place], [place] [address] Cira Jackson, DPT [address] [place] [address], [facility], [address] [place] [phone] 12/23/2024 9:00 EST Rehab Therapy Visit [facility] - Medical Office [address] [place], [place] [phone] Cira Jackson, DPT [address] [place] [address], [facility], [address] [place] [phone] documented as of this encounter Procedures Procedure Name Priority Date/Time Associated Diagnosis Comments EEG Routine Consult 02/22/2024 12:00 EDT Abnormal movements documented in this encounter Results * EEG (02/22/2024 12:00 EDT) Narrative [facility] POINT OF CARE - 02/22/2024 12:00 EDT Ben Jimenez MD ? 02/25/2024 11:52 [facility] ??Name: [facility] ?? [address] ? : 1990 [place], [place] ?Date: 02/22/2024 ? Ambulatory Digital EEG Monitoring Report Referring Physician: Virginia Jj MD Study Number: [id number] Clinical Indication: 33 yo female ??with episodic hand weakness, urinary incontinence, and dissociation who presents for EEG evaluate for seizures. Medications: Current Outpatient Medications: ??acetaminophen (TYLENOL) 500 mg tablet, Take 2 Tablets by mouth every 8 hours as needed for Pain., Disp: 180 Tablet, Rfl: 0 ??albuterol 90 mcg/actuation inhaler, Inhale 2 Puffs as directed every 4 hours. (Patient not taking: Reported on 05/10/2023), Disp: 1 Inhaler, Rfl: 0 ??clonazePAM (KLONOPIN) 1 mg tablet, Take 1 Tablet by mouth daily., Disp: , Rfl: ??cyclobenzaprine (FLEXERIL) 10 mg tablet, Take by mouth as needed. (Only used for 5 days), Disp: , Rfl: ??HYDROcodone-acetaminophen (NORCO) 5-325 mg tablet, Take 1 Tablet by mouth every 6 hours as needed for Pain. ??Daily Max: 4 Tablets (Patient not taking: Reported on 01/31/2024), Disp: 10 Tablet, Rfl: 0 ??HYDROcodone-acetaminophen (NORCO) 5-325 mg tablet, Take 1 Tablet by mouth every 6 hours as needed for Pain. ??Daily Max: 4 Tablets, Disp: 10 Tablet, Rfl: 0 ??ibuprofen (MOTRIN) 200 mg tablet, Take 1 Tablet by mouth every 6 hours., Disp: , Rfl: ??inhalational spacing device (BREATHERITE MDI SPACER), Use with a metered dose inhaler, as directed. ??May be dispensed with mask as appropriate.. (Patient not taking: Reported on 02/14/2024), Disp: 1 Each, Rfl: 0 ??lidocaine 5 % (LIDODERM) 5 % patch, APPLY 2 PATCHS ON THE SKIN ONCE DAILY UP TO 12 HOURS ON AND 12 HOURS OFF (Patient not taking: Reported on 02/14/2024), Disp: 20 Patch, Rfl: 1 ??naproxen (NAPROSYN) 500 mg tablet, Take by mouth. (Patient not taking: Reported on 02/14/2024), Disp: , Rfl: ??traZODone (DESYREL) 50 mg tablet, 1 Tablet as needed. (Patient not taking: Reported on 02/14/2024), Disp: , Rfl: Technical Description: Ambulatory digital electroencephalographic monitoring is performed utilizing a [employer] ([employer]) recorder. ?? Silver/silver chloride EEG electrodes are placed according to the International 10-20 system as well as anterior temporal electrodes, a CPz recording reference and FCz ground contract.An ECG channel is also monitored. ??The patient is instructed to press and Event Button in the event of a seizure-like spell (Target Event). ??The patient is also instructed to maintain an activity log. ??The entire EEG dataset is reviewed by the attending physician. ??No pain assessment for this procedure is necessary. Patient does not return an event log book but reports no clinical or target events occurring during record. This study is not preceded by an in laboratory EEG study. Findings: Monitoring period: 02/22/2024 at 13:16 to 02/23/2024 at 12:27 The waking background activity is continuous, well-organized, symmetric, reactive to eye opening, and consists of low-medium amplitude, 12 Hz posteriorly predominant rhythm and superimposed faster frequencies. ?? Drowsiness is characterized by decreased muscle and eye blink artifact with waxing and waning of the background rhythms. Stage II of sleep is characterized by vertex sharp waves, K complexes, and sleep spindles. Slow wave sleep consists primarily of diffuse delta and theta activity. REM sleep with rapid eye movements and a moderate mixture of theta and alpha activity is noted. Photic stimulation and hyperventilation are not performed No epileptiform discharges or epileptic seizures are present. Numerous push button events are recorded without electrographic correlate. Patient reported no clinical or target events occurring during the study. There is diffuse myogenic, electrode, and eye blink artifact seen throughout the study. A single-lead EKG tracing is obscured by artifact. Impression: ??This 24 hour ambulatory EEG is normal during the awake and sleep states. Clinical Correlation: There are no focal slowing, epileptiform discharges or electrographic seizures seen although their absence does not exclude a diagnosis of epilepsy. No Target events are recorded. Margi Montiel, PGY-5, Clinical Neurophysiology Fellow I have reviewed the entire EEG and agree with the written report. Ben Jimenez MD Professor of Neurological Sciences [facility] Medicine us Virginia Jj MD NEUROLOGY ORDERABLES Final Re sult [facility] POINT OF CARE documented in this encounter Visit Diagnoses Diagnosis Abnormal movements documented in this encounter Care Teams Printing Equipment Mechanic Relationship Specialty Start Date End Date Ariana Dill DNP [address] [place] [id number] PCP - General 08/07/23 Rach Waddell MD [address] [facility], [facility] [address] [place] [phone] Label Fuser Tender Obstetrics and Gynecology 05/10/23 documented as of this encounter
--- OUTSIDE RECORDS SUMMARY | 2024-11-10 02:14 | XMS_ITS | Encounter Summary ---
Author Organization [facility] Address [address] [place] [address] Care Team Providers Care Garment Inspector Name Role Phone Rach Waddell MD Unavailable [phone] Ariana Dill DNP Primary Care Provider [phone] Reason for Visit * Reason Comments Follow-up * Consult (Urgent) - Authorization Not Required Specialty Diagnoses / Procedures Referred By Contac t Referred To Contact Orthopedic Surgery Diagnoses Low back pain Chronic pain syndrome Ariana Dill, DNP [address] [place] [address] Phone: tel: fax: [facility] [place] [address] [place] [address] Phone: tel: fax: Referral ID Status Reason Start Date Expiration Date Visits Requested Visits Authorized [id number] Authorization Not Required 1 1 Encounter Details Date Type Department Care Team (Late st Contact Info) Description 02/28/2024 11:00 EDT Office Visit [facility] [place] [address] Caitlin Snow PA-C [address] [place] [address] Lumbar disc herniation (Primary Dx); Coccydynia; Radicular leg pain; Urinary incontinence, unspecified type Social History Tobacco Use Types Packs/Day Years [...] documented in this encounter Progress Notes * Caitlin Snow PA-C - 02/28/2024 1100 EDT Subjective Ms. Macedonci presents today for lumbar injection follow-up. She has a history of chronic low back pain. Symptoms started after her first labor and delivery in 2015, worsened after her second delivery in 2021. Describes dull intermittent pain to the central low back that extends bilaterally. Back pain is predominantly right-sided. Since from 2021 delivery has had intermittent shooting pain down the right posterior lateral thigh to the knee. There is no associated numbness or tinglingin this leg. Does feel weakness in this leg that she correlates onset to when she had her spinal in 2021. Has had chronic coccydynia since her first delivery in 2015. Uses a donut for sitting. Does not tolerate prolonged seating long due to flared lumbar and coccyx pain. In the last year and a half has developed chronic though intermittent bladder incontinence of unclear etiology. Back pain is worse with prolonged sitting, driving and when she is on her menses. Improved when lying down and with self traction. She has tried formal courses of PT and geriatric personal care aide approximately 2 years ago that offered no significant effect. No prior injections. Currently using ibuprofen and hydrocodone as needed for pain management. She is previously used lidocaine patches, THC and marijuana for management. Overall reports 70% back pain, 30% right leg pain. She feels equally bothered by her lumbar and coccyx pain. Denies any bowel dysfunction or saddle paresthesia. No prior lumbar surgeries. 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 She has been diagnosed with overactive bladder and pelvic floor dysfunction. Since her last visit she underwent an L5-S1 KIRTI on February 14, 2024. Following the injection had intensely flare of low back pain for the following 3 to 4 days. Back pain continues to be flared compared to her preinjection state. Continues to have episodic weakness of the right leg with ambulating. She has been working with a chiropractor without much effect. Since her last visit she has presented to the emergency department twice in December regarding episodic full body tremors, clamminess, disorientation, and ringing in her ears, as well as an episode of urinary incontinence and shaking. MRI of the head and cervical spine were done at that time showing only cervical foraminal stenosis. Since then she has had evaluations by neurology, endocrinology and rheumatology for further workup to include pending MRI of the SI joints. Objective Thoracic MRI dated November 14, 2023. Showing normal bony alignment. Disc protrusions at T5-6, T6-7,T8-T9 and disc bulging at T7-T8. Flattening of the ventral aspect at the site of spinal cord secondary to disc degeneration at T5- 6, T6-7, T7-T8 and T8-T9 with no significant central stenosis. Spinalcord has normal signal intensity throughout. No foraminal stenosis. Lumbar MRI dated September 07, 2023. Imaging shows normal bony alignment. Disc desiccation at L4-5 and L5-S1 with mild loss of disc height at L5-S1. L4-5 mild facet hypertrophy with no central or foraminal stenosis. L5-S1 global disc bulge with a superimposed central and right paracentral disc extrusion with both superior and inferior disc migration producing mild central stenosis. Abuts the traversing right S1 nerve root in the lateral recess. Mild left and no right- sided foraminal stenosis. X-rays of the sacrum coccyx dated November 06, 2018. SI joints symmetric with no erosions. Angulation to the left of the midline of the lower coccyx with retrolisthesis of one of the coccygeal segments seen on lateral view. Assessment and plan 33-year-old female with chronic low back pain, intermittent right leg pain and chronic bladder incontinence likely secondary to multiple etiologies. Regarding her chronic low back pain suspect this is multifactorial. High suspicion for discogenic back pain as well as chronic coccydynia status post trauma from her first labor and delivery. MRI shows a large disc herniation at L5-S1 with both superior and inferior disc migration. Radiating right leg symptoms track into proximal mixed L5-S1 distribution. Chronic bladder incontinence, which has been worked up by urology and she has been diagnosedwith overactive bladder and pelvic floor dysfunction. Thoracic MRI was ordered to rule out neurogenic causes of her urinary symptoms and due to hyperreflexia seen on exam. She does have multilevel disc degeneration with disc material flattening the ventral aspect of the spinal cord in the mid thoracic spine though there is no significant stenosis and spinal cord has normal signal intensity in this region. Low suspicion for cord involvement in her urinary symptoms. She continues to feel functionally limited by her axial low back pain concerning for discogenic origin in the setting of sizable disc herniation at the L5-S1 level. Worsening pain following epidural which may be secondary to increased pressure in this region. Given her multiple failed nonsurgical treatment modalities recommend she return for surgical consultation to discuss treating her disc herniation. She clearly has multiple pain generators and various medical conditions contributing to her symptom complex. Would defer tothe surgeon as to how much improvement she would likely have by treating this disc herniation. She will be scheduled for follow- up with next available surgeon. In the meantime she is encouraged to continue with her rheumatology workup. All of her questions have been answered and she is comfortable with this plan. Dr. Lim was available for consultation, however consult not required. All or part of this document has been prepared with speech recognition software and/or keyboard medical data entry clerk techniques. Minor irregularities may be present. I spent a total of 20 minutes on the date of this encounter meeting with the patient and reviewing documentation/coordinating care as described in the above note. documented in this encounter Plan of Treatment Upcoming Encounters Date Type Department Care Team (Late st Contact Info) Description 11/18/2024 8:15 EST Office Visit [facility] Pelvic Medicine and Reconstructive Surgery - Medical Office [address] [id number] Julia Terrell PA-C [address] [place] [address], [address] [phone] 11/25/2024 8:00 EST Rehab Therapy Visit [facility] Rehabilitation Therapy - Medical Office [address] [address] Cira Jackson DPT [address] [place] [address], [address] [place] [phone] 12/02/2024 8:00 EST Rehab Therapy Visit [facility] Rehabilitation Therapy - Medical Office [address] [address] Cira Jackson DPT [address] [place] [address], [address] [place] [phone] 12/09/2024 8:00 EST Rehab Therapy Visit [facility] Rehabilitation Therapy - Medical Office Building [address] [place] [address] Cira Jackson, DPT [address] [facility], [facility], [address] [place] [phone] 12/16/2024 9:00 EST Rehab Therapy Visit [facility] Rehabilitation Therapy - Medical Office Building [address] [place] [address] Cira Jackson, DPT [address] [facility], [facility], [address] [place] [phone] 12/23/2024 9:00 EST Rehab Therapy Visit [facility] Rehabilitation Therapy - Medical Office Building [address] [place] [address] Cira Jackson, DPT [address] [place] [address], [facility], [address] [place] [phone] documented as of this encounter Visit Diagnoses Diagnosis Lumbar disc herniation- Primary Displacement of lumbar intervertebral disc without myelopathy Coccydynia Other disorder of coccyx Radicular leg pain Thoracic or lumbosacral neuritis or radiculitis, unspecified Urinary incontinence, unspecified type documented in this encounter Care Teams Garment Inspector Relationship Specialty Start Date End Date Ariana Dill DNP [address] [place] [address] PCP - General 08/07/23 Rach Waddell MD [address] [place] [address], [address] [place] [phone] Baseball Glove Stuffer Obstetrics and Gynecology 05/10/23 documented as of this encounter
--- OUTSIDE RECORDS SUMMARY | 2024-11-10 02:14 | XMS_ITS | Encounter Summary ---
Author Organization [facility] Address [address] [place] [address] Care Team Providers Care Dredging Inspector Name Role Phone Rach Waddell MD Unavailable [phone] Ariana Dill DNP Primary Care Provider [phone] Encounter Details Date Type Department Care Team (Late st Contact Info) Description 02/01/2024 10:30 EDT Phlebotomy Only [facility] ED Center 2 Phlebotomy [address] [place] [address] Sustainability Director, Acc Phlebotomy Abnormal TSH Social History Tobacco Use Types Packs/Day Years [...] Author No 01/11/2024 18:50 EDT Karlo Haywood, LAZARA * Are you blind or do you [...] Info) Description 11/18/2024 8:15 EST Office Visit [facility] Pelvic Medicine and Reconstructive Surgery - Medical Office [facility] [address] [place] [id number] Julia Terrell PA-C [address] [facility] Office Building, [address] [place] [phone] 11/25/2024 8:00 EST Rehab Therapy Visit [facility] Rehabilitation Therapy - Medical Office Building [address] [place] [address] Cira Jackson DPT 7[address] [facility], [address] [place] [phone] 12/02/2024 8:00 EST Rehab Therapy Visit [facility] Rehabilitation Therapy - Medical Office Building [address] [place], [place] [address] Cira Jackson DPT [address] [place] [address], [facility], [address] [place] [phone] 12/09/2024 8:00 EST Rehab Therapy Visit [facility] Rehabilitation Therapy - Medical Office Building [address] [place] [address] Cira Jackson DPT [address] [place] [address], [facility], [address] [place] [phone] 12/16/2024 9:00 EST Rehab Therapy Visit [facility] Rehabilitation Therapy - Medical Office Building [address] [place], [place] [address] Cira Jackson DPT [address] [place] [address], [facility], [address] [place] [phone] 12/23/2024 9:00 EST Rehab Therapy Visit [facility] Rehabilitation Therapy - Medical Office Building [address] [place], [place] [address] Cira Jackson DPT [address] [place] [address], [facility], [address] [place] [phone] documented as of this encounter Procedures Procedure Name Priority Date/Time Associated Diagnosis Comments TSH Routine 02/01/2024 10:31 EDT Abnormal TSH THYROID ANTIBODIES Routine 02/01/2024 10 :31 EDT Abnormal TSH T4 FREE Routine 02/01/2024 10:31 EDT Abnormal TSH documented in this encounter Results * THYROID ANTIBODIES (02/01/2024 10:31 EDT) Anti-Thyroglobulin <15 <=60 U/mL 2023 12:44 EDT [facility] Thyroperoxidase Ab <28 <=60 U/mL 2023 12:44 EDT [facility] Blood VENOUS BLOOD / Unknown Venipuncture / Unknown 02/01/2024 10:31 EDT 02/01/2024 11:03 EDT us Lori Arroyo MD PhD CHEMISTRY & BLOOD GAS ORD ERABLES Final Result Performing Organization Address [facility]/ZIP Co de Phone Number [facility] [address] [place] [address] * T4 FREE (02/01/2024 10:31 EDT) T4, Free 1.1 0.8 - 2.2 ng/dL 02/01/2024 12:04 EDT [facility] Blood VENOUS BLOOD / Unknown Venipuncture / Unknown 02/01/2024 10:31 EDT 02/01/2024 11:03 EDT us Lori Arroyo MD PhD CHEMISTRY & BLOOD GAS ORD ERABLES Final Result Performing Organization Address [facility] Co de Phone Number [facility] [address] [place] [address] * TSH (02/01/2024 10:31 EDT) TSH 1.62 0.47 - 4.68 mIU/L 02/01/2024 12:17 EDT [facility] Blood VENOUS BLOOD / Unknown Venipuncture / Unknown 02/01/2024 10:31 EDT 02/01/2024 11:03 EDT Narrative [facility] - 02/01/2024 12:17 EDT The results of this assay can be falsely lowered due to the consumption of Biotin. us Lori Arroyo MD PhD CHEMISTRY & BLOOD GAS ORD ERABLES Final Result [facility] [address] [place], [place] [phone] documented in this encounter Visit Diagnoses Diagnosis Abnormal TSH Other abnormal clinical finding documented in this encounter Care Teams Dredging Inspector Relationship Specialty Start Date End Date Ariana Dill DNP [address] [place] [address] PCP - General 08/07/23 Rach Waddell MD [address] [facility], [facility], [address] [place] [address] Plant Physiology Teacher Obstetrics and Gynecology 05/10/23 documented as of this encounter
--- OUTSIDE RECORDS SUMMARY | 2024-11-10 02:14 | XMS_ITS | Encounter Summary ---
Author Organization [facility] Address [address] [place] [address] Care Team Providers Care Resource Recovery Specialist Name Role Phone Rach Waddell MD Unavailable [phone] Ariana Dill DNP Primary Care Provider [phone] Reason for Referral * Radiology Services (Routine/Next Available) - Authorization Not Required Specialty Diagnoses / Procedures [facility] Referred To Contact Diagnoses Back pain, unspecified back location, unspecified back pain laterality, unspecified chronicity Procedures XR LUMBAR SPINE BENDING VIEWS, 2 OR 3 VIEWS Cecilia Puga MD [address] [place] [phone] Phone: tel: fax: [facility] Referral ID Status Reason Start Date Expiration Date Visits Requested Visits Authorized [id number] Authorization Not Required 02/29/2024 1 1 Encounter Details Date Type Department Care Team (Late st Contact Info) Description 02/29/2024 Orders Only [facility] Spine Program [place] [address] [place] [address] Cecilia Puga MD [address] [place] [phone] Back pain, unspecified back location, unspecified [...] Medicine and Reconstructive Surgery - Medical Office [address] [address] Julia Terrell PA-C 7[address] [facility] Medical Office Building, [address] [place] [phone] 11/25/2024 8:00 EST Rehab Therapy Visit [facility] Rehabilitation Therapy - Medical Office Building [address] [place] [address] Cira Jackson, DPT [address] [place] [address], [facility], [address] [place] [phone] 12/02/2024 8:00 EST Rehab Therapy Visit [facility] - Medical Office Building [address] [place] [address] Cira Jackson, DPT [address] [place] [address], [facility], [address] [place] [phone] 12/09/2024 8:00 EST Rehab Therapy Visit [facility] Rehabilitation Therapy - Medical Office Building [address] [place] [address] Cira Jackson, DPT [address] [place] [address], [facility], [address] [place] [phone] 12/16/2024 9:00 EST Rehab Therapy Visit [facility] Rehabilitation Therapy - Medical Office Building [address] [place] [address] Cira Jackson, DPT [address] [place] [address], [facility], [address] [place] [phone] 12/23/2024 9:00 EST Rehab Therapy Visit [facility] Rehabilitation Therapy - Medical Office Building [address] [place] [address] Cira Jackson, DPT 7[address] [facility], [facility], [address] [place] [address] documented as of this encounter Results * XR LUMBAR SPINE [...] maintained. Mild disc space narrowing at L5-S1. [id number] Resulting Agency Comment [id number] Procedure Note Kitty Cavazos MD - 04/15/2024 XR LUMBAR SPINE BENDING VIEWS, 2 OR 3 VIEWS 04/12/2024 10:55 AM Clinical History/Comments: back pain;M54.9:Back pain, unspecified back location, unspecified backpain laterality, unspecified chronicity Comparison: Lumbar spine radiographs 02/12/2024 Technique: Lumbar spine. 2 views Findings: No evidence of instability on flexion and extension. Vertebral bodyheights are maintained. Mild disc space narrowing at L5-S1. [id number] Cecilia Puga MD IMG DIAGNOSTIC IMAGING ORDERABLE S Final Result documented in this encounter Visit Diagnoses Diagnosis Back pain, unspecified back location, unspecified back pain laterality, unspecified chronicity- Primary Back pain, unspecified back location, unspecified back pain laterality, unspecified chronicity documented in this encounter Care Teams Resource Recovery Specialist Relationship Specialty Start Date End Date Ariana Dill DNP [address] [place] [address] PCP - General 08/07/23 Rach Waddell MD [address] [facility], [facility] [address] [place] [address] Forensic Examiner Obstetrics and Gynecology 05/10/23 documented as of this encounter
--- OUTSIDE RECORDS SUMMARY | 2024-11-10 02:14 | XMS_ITS | Encounter Summary ---
Author Organization [facility] Address [address] [place] [address] Care Team Providers Care Banking Pin Adjuster Name Role Phone Rach Waddell MD Unavailable [phone] Ariana Dill DNP Primary Care Provider [phone] Reason for Visit * Office Procedure (Routine/Next Available) - Receiving Office to Obtain Authorization Specialty Diagnoses / Procedures Referred By Zackary corea Referred To Contact Neurology Diagnoses Abnormal movements Procedures EEG Virginia Jj MD [address] [place] [address], [facility] [address] [place] [address] Phone: tel: fax: [facility] Neurophysiology [facility] ([facility]) [address] [place] [address] Phone: tel: fax: Referral ID Status Reason Start Date Expiration Date Visits Requested Visits Authorized [id number] Receiving Office to Obtain Authorization Specialty Services Required 01/24/2024 2 2 Encounter Details Date Type Department Care Team (Latest Contact Info) Description 02/23/2024 12:15 EDT - 02/23/2024 23:59 EDT Hospital Encounter [facility] Neurophysiology [facility] ([facility]) [address] [place] [phone] Discharge Disposition: Home or Self Care Social [...] Info) Description 11/18/2024 8:15 EST Office Visit [facility] Pelvic Medicine and Reconstructive Surgery - Medical Office Building [facility] [address] [place] [phone] Julia Terrell PA-C [address] [place] [address] Medical Office Building, [address] [place] [phone] 11/25/2024 8:00 EST Rehab Therapy Visit [facility] Rehabilitation Therapy - Medical Office Building [address] [place] [address] Cira Jackson DPT [address] [place] [address], [facility], [address] [place] [phone] 12/02/2024 8:00 EST Rehab Therapy Visit [facility] Rehabilitation Therapy - Medical Office Building [address] [place] [address] Cira Jackson, ROBERTO [address] [place] [address], [facility], [address] [place] [phone] 12/09/2024 8:00 EST Rehab Therapy Visit [facility] Rehabilitation Therapy - Medical Office [address] [address] Cira Jackson DPT [address] [place] [address], [facility], [address] [place] [phone] 12/16/2024 9:00 EST Rehab Therapy Visit [facility] Rehabilitation Therapy - Medical Office [address] [address] Cira Jackson DPT [address] [place] [address], [facility], [address] [place] [phone] 12/23/2024 9:00 EST Rehab Therapy Visit [facility] Rehabilitation Therapy - Medical Office Building [address] [place] [address] Cira Jackson, DPT [address] [place] [address], [facility], [address] [place] [phone] documented as of this encounter Procedures Procedure Name Priority Date/Time Associated Diagnosis Comments EEG Routine Consult 02/22/2024 12:00 EDT Abnormal movements documented in this encounter Results * EEG (02/22/2024 12:00 EDT) Narrative [facility] POINT OF CARE - 02/22/2024 12:00 EDT Ben Jimenez MD ? 02/25/2024 11:52 [facility] ??Name: [facility] ?? [address] ? : [address] [place], [place] ?Date: 02/22/2024 ? Ambulatory Digital EEG [...] digital electroencephalographic monitoring is performed utilizing a GROUNDBOOTH) recorder. ?? Silver/silver chloride EEG electrodes are [...] Ben Jimenez MD Professor of Neurological Sciences [facility] of [facility] us Virginia Jj MD NEUROLOGY ORDERABLES Final Re sult [facility] POINT OF CARE documented in this encounter Visit Diagnoses Not on filedocumented in this encounter Care Teams Banking Pin Adjuster Relationship Specialty Start Date End Date Ariana Dill DNP [address] [place] [address] PCP - General 08/07/23 Rach Waddell MD 111 [facility] [address] [place] [phone] Lamp Mechanic Obstetrics and Gynecology 05/10/23 documented as of this encounter
--- OUTSIDE RECORDS SUMMARY | 2024-11-10 02:14 | XMS_ITS | Encounter Summary ---
Author Organization [facility] Address [address] [place] [address] Care Team Providers Care Plaster Maker Name Role Phone Rach Waddell MD Unavailable Ariana Dill DNP Primary Care Provider [phone] Reason for Visit * Reason Onset Date Comments New Patient Visit 01/16/2024 URGENT New Pat ient Visit Encounter Details Date Type Department Care Team (Late st Contact Info) Description 01/16/2024 Telephone [facility] Rheumatology & Immunology - [facility] [address] [place], [place] [phone] Ariana Dill DNP [address] [place], [place] [address] New Patient Visit (URGENT New Patient Visit) Social History Tobacco Use Types Packs/Day Years [...] Lois Vega RN documented in this encounter Miscellaneous Notes * Telephone Encounter - Lupe Craig - 01/16/2024 1145 EDT Reason for Call: New Patient Visit (URGENT New Patient Visit) Summary/Symptoms: 1st Attempt - Left message on machine to call back to schedule URGENT New PatientVisit. Please schedule from REFERRAL TAB Lupe Craig 01/16/2024 11:46 documented in this encounter Plan of Treatment Upcoming Encounters Date Type Department Care Team (Late st Contact Info) Description 11/18/2024 8:15 EST Office Visit [facility] Pelvic Medicine and Reconstructive Surgery - Medical Office [address] [address] Julia Terrell PA-C 2 [facility] Medical Office Building, [address] [place] [phone] 11/25/2024 8:00 EST Rehab Therapy Visit [facility] Rehabilitation Therapy - Medical Office Building [address] [place] [address] Cira Jackson, DPT [address] [place] [address], [facility], [address] [place] [phone] 12/02/2024 8:00 EST Rehab Therapy Visit [facility] Rehabilitation Therapy - Medical Office Building [address] [place] [address] Cira Jackson, DPT [address] [place] [address], [facility], [address] [place] [phone] 12/09/2024 8:00 EST Rehab Therapy Visit [facility] Rehabilitation Therapy - Medical Office [address] [address] Cira Jackson, DPT [address] [place] [address], [facility], [address] [place] [phone] 12/16/2024 9:00 EST Rehab Therapy Visit [facility] Rehabilitation Therapy - Medical Office Building [address] [place] [address] Cira Jackson, DPT [address] [place] [address], [facility], [address] [place] [phone] 12/23/2024 9:00 EST Rehab Therapy Visit [facility] Rehabilitation Therapy - Medical Office Building [address] [place] [address] Cira Jackson, DPT 792 [facility], [facility], [address] [place] [address] documented as of this encounter Visit Diagnoses Not on filedocumented in this encounter Care Teams Plaster Maker Relationship Specialty Start Date End Date Ariana Dill DNP [address] [place] [address] PCP - General 08/07/23 Rach Waddell MD 111 [facility], [facility], [address] [place] [address] Group Sales Manager Obstetrics and Gynecology 05/10/23 documented as of this encounter
--- OUTSIDE RECORDS SUMMARY | 2024-11-10 02:14 | XMS_ITS | Encounter Summary ---
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 BURR GRINDER Leep/Loop Cone Procedure Note Indications: Patient presents/referred for:Leep because of a diagnosis IFRAH II- III found at colposcopy on 12/2023. Prior cervical treatment:no treatment. Leep is recommended treatment:the Colposcopy is determinate. No tobacco, uses marijuana HPV vaccination age 12 before IC 2008, 2010, 2012 pap neg 2016 pap insuff 2020 pap and HPV neg 2022 pap neg, HPV pos (16, 18 neg) 2023 ASC-H, HPV pos 01/2024 colpo cx bx x3 IFRAH II-III Procedure Details: Patient's last menstrual period was 01/22/2024. Using condoms, declines UPT. Examination chaperoned by Glendy Maciel MA. The risks and benefits of the procedure were discussed and written informed consent obtained. The patient was taken to the treatment room and placed in the dorsal lithotomy position. A ground pad wasplaced on the patient's thigh. A nonconductive speculum was placed into the vagina and attached to vacuum filtered suction. The cervix was re-inspected colposcopically after applying 3- 5% acetic acid. Half-strength Lugol's solution was reapplied to confirm distribution of the lesion. Using 2% xylocaine, containing 1:100,000 epinephrine 6 cc's were injected. For the ectocervical excision, the 1.5 x 0.8 cm electrode was selected and placed at the lateral edge of the cervix, then slowly drawn through the ectocervix. The canal was carefully inspected to determine that the lesion was removed. Bleeding areas were cauterized. An ECC was not performed. The specimens were prepared and sent to surgical pathology. Monsell's wasapplied to the wound. Hemostasis was attained. The procedure was completed and the instruments wereremoved from the vagina. The patient tolerated the procedure. She was given written instructions on activities and follow-upand discharged from office to home. Image: Cervix: 360 degrees of columnar epithelium seen:yes Clinical Impressions: No obvious residual IFRAH - prior IFRAH II-III Bleeding controlled yes. Specimens: Leep Specimens sent:1 specimens sent. ECC specimens: no. Endocervix specimens:no. Ectocervix specimens: yes. Complications: None Plan: HPV and Pap test in 6 months Nora Dang MD * Kaylene Dillon MD - 02/15/2024 1015 EDT LMP 02/12/2024 documented in this encounter Plan of Treatment Upcoming Encounters Date Type Department Care Team (Late st Contact Info) Description 11/18/2024 8:15 EST Office Visit [facility] Pelvic Medicine and Reconstructive Surgery - Medical Office [facility] [address] [place] [id number] Julia Terrell PA-C [address] [place] [address] Medical Office Building, [address] [place] [phone] 11/25/2024 8:00 EST Rehab Therapy Visit [facility] Rehabilitation Therapy - Medical Office [address] [place] [address] Cira Jackson, DPT [address] [place] [address], [facility] [place], [address] [place] [phone] 12/02/2024 8:00 EST Rehab Therapy Visit [facility] Rehabilitation [facility] - Medical Office Building [address] [place] [address] Cira Jackson, ROBERTO [address] [place] [address], [facility] [place], [address] [place] [phone] 12/09/2024 8:00 EST Rehab Therapy Visit [facility] Rehabilitation [facility] - Medical Office Building [address] [place] [address] Cira Jackson, KEMALT [address] [place] [address], [facility] [place], [address] [place] [phone] 12/16/2024 9:00 EST Rehab Therapy Visit [facility] Rehabilitation Therapy - Medical Office Building [address] [place] [address] Cira Jackson, KEMALT [address] [place] [address], [facility] [place], [address] [place] [phone] 12/23/2024 9:00 EST Rehab Therapy Visit [facility] Rehabilitation Therapy - Medical Office Building [address] [place] [address] Cira Jackson, DPT [address] [facility], [place], [address] [place] [address] documented as of this encounter Procedures Procedure Name Priority Date/Time Associated Diagnosis Comments SURGICAL PATHOLOGY Routine 02/15/2024 11 :24 EDT IFRAH III (cervical intraepithelial neoplasia grade III) with severe dysplasia documented in this encounter Results * SURGICAL PATHOLOGY (02/15/2024 11:24 EDT) Note to Patient The following pathology results have been interpreted by your pathologist and may be available to you before your health provider has had the opportunity to review them. Please allow time for your provider to receive these results and explore management options, if applicable. 02/20/2024 11:24 EDT [facility] Final Diagnosis CERVIX, LEEP: - High grade squamous intraepithelial lesion (IFRAH 2). - Margins negative for squamous intraepithelial lesion. - Endometriosis with tubal metaplasia. See comment. 02/20/2024 11:24 EDT [facility] Diagnosis Comment Immunoperoxidase stains were performed on this case to further characterize the lesion. 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 Seed Sorter slides of this case were reviewed at the intradepartmental consultation conference. NOTE: One or more of the reagents used in immunoperoxidase testing in this case may not have been cleared or approved by the U.S. Food and Drug Administration (FDA). The FDA has determined that such clearance or approval is not necessary. These tests are used for clinical purposes. They should not be regarded as investigational or for research. These reagents' performance characteristics have been determined by [facility] and/or by the referring laboratory. The positive and negative controls worked appropriately. If immunoperoxidase staining has been performed on alcohol fixed cytology specimens, which has not been fully validated, the assays should be interpreted with caution and correlated with clinical data. This laboratory is certified under the Clinical Laboratory Improvement Amendments of 1988 (CLIA-88) as qualified to perform high complexity clinical laboratory testing. 02/20/2024 11:24 T [facility] Attestation By the signature below, the attending physician certifies that they have 1) personally conducted a gross and/or microscopic examination of the described specimen(s), and/or personally interpreted the results of laboratory testing of the described specimen(s), and 2) personally rendered or confirmed the above diagnosis. 02/20/2024 11:24 T [facility] at 1124 Clinical History IFRAH II-III; clinical diagnosis code: D06.9 02/20/2024 11:24 T [facility] Gross Description A. Received in formalin labelled with proper patient identification (initials M, N) and LEEP is an unoriented portion of cervix (1.5 x 1.3 x 0.6 cm). The distal portion is covered by wrinkled, pink-white ectocervical mucosa and has a slit-like os (0.6 cm in diameter). No obvious lesions are identified. The specimen is inked as follows: The endocervical margin is blue and the remaining margin is black. The specimen is radially sectioned and entirely submitted in A1-A7. ALYSSA VILLAFANA(ASCP) 02/16/2024 10:15 02/20/2024 11:24 EDT [facility] Performing Lab [facility] 02/20/2024 11:24 EDT [facility] Scanned Images 02/20/2024 11:24 T [facility] Tissue CERVIX UTERI STRUCTURE / Unknown Collection, Other / Unknown 02/15/2024 11:24 EDT 02/15/2024 15:22 EDT us Nora Dang MD PATHOLOGY ORDERABLES Final Result [facility] [address] [place] [address] documented in this encounter Visit Diagnoses Diagnosis 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
--- OUTSIDE RECORDS SUMMARY | 2024-11-10 02:14 | XMS_ITS | Encounter Summary ---
Author Organization [facility] Address [address] [place] [address] Care Team Providers Care Track Broom Operator Name Role Phone Rach Waddell MD Unavailable [phone] Ariana Dill DNP Primary Care Provider [phone] Reason for Visit * Reason Onset Date Comments Appointment Related 02/05/2024 Encounter Details Date Type Department Care Team (Late st Contact Info) Description 02/05/2024 Telephone [facility] OBGYN Services - [facility] [address] [place], [place] [phone] Christiane Munoz NP [address] [facility], [address] [place] [address] Appointment Related Social History Tobacco Use Types [...] encounter Miscellaneous Notes * Telephone Encounter - Cira Brooks - 02/05/2024 1402 EDT Are you calling for gynecological, obstetric, or reproductive care? Gynecological Have you been seen here before? Yes If yes, who do you see (Refer to if cant remember)? Christiane Munoz Reason for Call as described by patient: Pt is scheduled for epidural shot on 02/13, the day prior to her LEEP. Pt wonders if it's advisable to have her epidural and LEEP back to back. At spine center, they said it was a 50/50 chance she could be in a lot of pain after the epidural. What is the best phone number for us to reach you back at? [phone] or Prizzmt Does this number have a voicemail, is it ok to leave a detailed message? Yes Cira Brooks 02/05/2024 14:02 documented in this encounter Plan of Treatment Upcoming Encounters Date Type Department Care Team (Late st Contact Info) Description 11/18/2024 8:15 EST Office Visit [facility] Pelvic Medicine and Reconstructive Surgery - Medical Office Building [address] [address] Julia Terrell PA-C [address] [facility] Medical Office Building, [address] [place] [phone] 11/25/2024 8:00 EST Rehab Therapy Visit [facility] Rehabilitation Therapy - Medical Office [address] [address] Cira Jackson, ROBERTO [address] [place] [address], [address] [place] [phone] 12/02/2024 8:00 EST Rehab Therapy Visit [facility] Rehabilitation Therapy - Medical Office [address] [phone] Cira Jackson DPT [address] [place] [address], [facility] [place], [address] [place] [phone] 12/09/2024 8:00 EST Rehab Therapy Visit [facility] Rehabilitation Therapy - Medical Office Building [address] [place] [address] Cira Jackson DPT [address] [place] [address], [facility] [place], [address] [place] [phone] 12/16/2024 9:00 EST Rehab Therapy Visit [facility] Rehabilitation Therapy - Medical Office Building [address] [place] [address] Cira Jackson DPT [address] [facility], [facility], [address] [place] [phone] 12/23/2024 9:00 EST Rehab Therapy Visit [facility] Rehabilitation Therapy - Medical Office Building [address] [place], [place] [phone] Cira Jackson DPT [address] [facility], [place], [address] [place] [phone] documented as of this encounter Visit Diagnoses Not on filedocumented in this encounter Care Teams Track Broom Operator Relationship Specialty Start Date End Date Ariana Dill DNP [address] [place] [address] PCP - General 08/07/23 Rach Waddell MD [address] [place] [address], [facility], [address] [place] [phone] Manager Emergency Obstetrics and Gynecology 05/10/23 documented as of this encounter
--- OUTSIDE RECORDS SUMMARY | 2024-11-10 02:14 | XMS_ITS | Encounter Summary ---
Author Organization [facility] Address [address] [place] [address] Care Team Providers Care Pipe Caulker Name Role Phone Rach Waddell MD Unavailable [phone] Ariana Dill DNP Primary Care Provider [phone] Reason for Referral * Office Procedure (Routine/Next Available) - Receiving Office to Obtain Authorization Specialty Diagnoses / Procedures Referred By Contac t Referred To Contact Neurology Diagnoses Abnormal movements Procedures EEG Virginia Jj MD [address] [place] [address], Level [address] [place] [address] Phone: tel: fax: [facility] Neurophysiology - [facility] ([facility]) [address] [place] [address] Phone: tel: fax: Referral ID Status Reason Start Date Expiration Date Visits Requested Visits Authorized [id number] Receiving Office to Obtain Authorization Specialty Services Required 01/24/2024 2 2 Reason for Visit * Reason Comments New Patient Visit * Consult (Routine/Next Available) - Receiving Office to Obtain Authorization Specialty Diagnoses / Procedures Referred By Contac t Referred To Contact Neurology Diagnoses Other urinary incontinence Rach Waddell MD Phone: tel: fax: Neurology 2c, Resident Phone: tel: fax: Referral ID Status Reason Start Date Expiration Date Visits Requested Visits Authorized [id number] Receiving Office to Obtain Authorization Specialty Services Required 3 1 1 Encounter Details Date Type Department Care Team (Late st Contact Info) Description 01/24/2024 15:20 EDT Telemedicine [facility] Adult Neurology [address] [address] Jossy Sanchez MD Abnormal movements (Primary Dx) Social History Tobacco Use Types Packs/Day Years Used Date Smoking Tobacco: Never Smokeless Tobacco: Never Tobacco Cessation:Counseling Given: [...] Lois Vega RN documented in this encounter Progress Notes * Virginia Jj MD - 01/24/2024 1520 EDT Resident Clinic Supervisory Note I personally saw, examined and evaluated Ms. Mine Lynn on 01/24/[address] Sanchez via telemedicine video visit. I agree with the resident's history, examination, assessment and plan. Please refer to their note as above for further details. Virginia Jj MD * Jossy Sanchez MD - 01/24/2024 1520 EDT Neurology Clinic New Patient Visit Date of Service: 01/24/2024 PCP: Ariana Dill NP Reason for Visit: [...] extending them. 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 She lives with her 2 kids and feels safe at home. She has beenunder stress lately, recently broke up with the father of her children and partner of 10 years. Sheis now a single mother. She takes clonazepam PRN, hydrocodone for pain, trazodone sometimes, ibuprofen for herniated discs.She sees a psychiatrist and a PCP. She confirms all of this history to me as well as adding that her primary concern is her urinary incontinence and that she has been told by several providers that this is neurologic in origin. She did see a urologist in 2018 (Jacque, [facility]) who diagnosed her with overactive bladder but I cannot seeif she had any urodynamic testing suggestive of neurogenic bladder. Additionally she has had full spine imaging as well as MRI head. She does not have other signs of autonomic dysfunction. She was diagnosed with a herniated S1 disc and is going to have an injection to see if that helps her symptoms. She also feels that she goes through periods of severe weakness particularly in her climatology professor when all the symptoms are present but then returns to baseline. Over time she doesn't feel like her strength overall has diminished. Denies myotonia but does complain of significant hand stiffness and pain. Has had workup recently including a markedly positive FOX (1:640) as well as TSH 6.4, negative CK, T4 wnl, GAD65 Ab 0.05 (ref 0.02), normal CMP, normal copper/ceruloplasmin, nml LFTs. Review of Systems 10 point ROS negative or noncontributory unless otherwise stated above. 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 Current Outpatient Medications Medication Instructions acetaminophen (TYLENOL) 1,000 mg, oral, EVERY 8 HOURS PRN albuterol 90 mcg/actuation inhaler 2 Puffs, inhalation, EVERY 4 HOURS clonazePAM (KLONOPIN) 1 mg, oral, DAILY cyclobenzaprine (FLEXERIL) 10 mg tablet oral, PRN, (Only used for 5 days) HYDROcodone-acetaminophen (NORCO) 5-325 mg tablet 1 Tablet, oral, EVERY 6 HOURS PRN HYDROcodone-acetaminophen (NORCO) 5-325 mg tablet 1 Tablet, oral, EVERY 6 HOURS PRN ibuprofen (MOTRIN) 200 mg, oral, EVERY 6 HOURS inhalational spacing device (BREATHERITE MDI SPACER) Use with a metered dose inhaler, as directed. May be dispensed with mask as appropriate. lidocaine 5 % (LIDODERM) 5 % patch APPLY 2 PATCHS ON THE SKIN ONCE DAILY UP TO 12 HOURS ON AND 12 HOURS OFF sertraline (ZOLOFT) 25 mg, oral, DAILY traZODone (DESYREL) 50 mg, PRN Allergies Allergies Allergen Reactions Imitrex [Sumatriptan Succinate] Shortness Of Breath Objective No data found. Physical Exam: GEN: Adult female resting comfortably. Dressed appropriately. Brief Neurological exam: MENTAL STATUS: AAOx3. Follows simple and complex commands. Affect normal with congruent mood. LANGUAGE: Speech clear, spontaneous, and fluent with no aphasia or dysarthria. Naming, repetition, comprehension intact. Volume and intonation grossly normal. CRANIAL NERVES: Grossly intact. EOM intact. No gaze preference. MOTOR: Normal muscle bulk. No tremors or abnormal movements noted during exam. Able to lift arms over head and sit up from chair. Labs/imaging reviewed: markedly positive FOX (1:640) as [...] neurogenic bladder, asthat would require some structural CAR PAINTER pathology to blame her bladder dysfunction on and she does not have any. Bladder innervation typically occurs at the S2/3/4 level but some anatomy may be variabl e so if the S1 nerve root is contributing, the injection she has coming up may be helpful for her. She also does not complain of any other autonomic dysfunction so a neurologic contribution on the basis of dysautonomia is unlikely. It may be useful for her to get looped back in with urology (Dr. Leela delgado vs back at [facility]) as they would be the ones to decide if urodynamic testing would be useful as well as if anticholinergics have utility here. Her recent dissociative episodes + shaking spells are not consistent with seizure, however certain seizure with a frontal focus can present with retained consciousness so I think outpatient EEG is fine. I will change the standard order to a 24 hour order as she's having the episodes multiple times daily so this will ensure we capture an event and can rule out epileptic abnormalities as well as assess for sleep architecture and any background abnormalities suggestive of encephalopathies or focality. Considered myotonic disorders, myopathies/myositis, hyperkalemic/hypokalemic periodic paralysis in the setting of her leg cramping and muscle pain/episodic weakness but also think these are unlikely given her demographic profile (myotonia more likely to present at younger age) and normal CK as wellas return to baseline between events and normal K during event in the ED. Her presentation is not consistent with stiff person syndrome despite her weakly positive SIMA-65 (this level was much much lower than typically seen in SPS), but if things progress and are no longer episodic we could consider an EMG in the future vs diazepam trial to fully rule this out. Prior to trialing either of these things we should see her in person in the clinic for a physical exam. Overall her presentation seems more consistent with something like autoimmune thyroid disease (though TSH was only marginally elevated) than primary neurologic disorder on the basis of her labs and symptoms, though would ultimately defer to rheumatology and endocrinology opinions on the possibilityof that. If workup per other specialists is unrevealing we can consider further testing for neurologic causes with EMG +/- LP. Plan - Will f/u after rheumatology/endocrinology evaluations Follow-up in 1 month or sooner if needed. Discussed and seen with neurology attending, Dr. jJ. jossy sanchez md neurology chief resident pager [phone] The clinical encounter was conducted virtually using HIPAA-compliant videoconferencing technology, ZOOM. At the time of the encounter, the patient was located at their [place] residence of record, please refer to the EMR for address details. JOSSY SANCHEZ MD, the provider, was located at home in the [facility] . Verbal informed consent for telemedicine services was obtained by JOSSY SANCHEZ MD. The concept of ???Telemedicine?? has been described [...] in patient???s medical or mental health care. The limitations of video general and neurological examination were reviewed and understood by the patient and/or caregiver/family member(s). In the event of a transmission failure, the provider or office staff will initiate a phone call to contact the patient to advise on next steps to connect or reschedule. documented in this encounter Plan of Treatment Upcoming Encounters Date Type Department Care Team (Late st Contact Info) Description 11/18/2024 8:15 EST Office Visit [facility] Pelvic Medicine and Reconstructive Surgery - Medical Office Building [facility] [address] [place] [address] Julia Terrell PA-C [address] [facility] Medical Office Building, [address] [place] [phone] 11/25/2024 8:00 EST Rehab Therapy Visit [facility] Rehabilitation Therapy - Medical Office Building [address] [place], [place] [id number] Cira Jackson DPT [address] [facility], [facility], [address] [place] [phone] 12/02/2024 8:00 EST Rehab Therapy Visit [facility] Rehabilitation Therapy - Medical Office [address] [id number] Cira Jackson, DPT [address] [place] [address], [facility], [address] [place] [phone] 12/09/2024 8:00 EST Rehab Therapy Visit [facility] Rehabilitation Therapy - Medical Office Building [address] [place] [address] Cira Jackson, DPT [address] [place] [address], [facility], [address] [place] [phone] 12/16/2024 9:00 EST Rehab Therapy Visit [facility] Rehabilitation Therapy - Medical Office [address] [address] Cira Jackson, DPT [address] [place] [address], [facility], [address] [place] [phone] 12/23/2024 9:00 EST Rehab Therapy Visit [facility] Rehabilitation [facility] - Medical Office [address] [id number] Cira Jackson, DPT [address] [place] [address], [facility], [address] [place] [phone] documented as of this encounter Results * EEG (02/22/2024 12:00 EDT) Narrative [facility] POINT OF CARE - 02/22/2024 12:00 EDT Ben Jimenez MD ? 02/25/2024 11:52 [facility] ??Name: [facility] Clinical Neurophysiology Laboratory ?? [address] ? : 1990 [place], [place] ?Date: 02/22/2024 ? Ambulatory Digital EEG [...] digital electroencephalographic monitoring is performed utilizing a Hortor) recorder. ?? Silver/silver chloride EEG electrodes are [...] Ben Jimenez MD Professor of Neurological Sciences [facility] [employer] us Virginia Jj MD NEUROLOGY ORDERABLES Final Re sult [facility] POINT OF CARE documented in this encounter Visit Diagnoses Diagnosis Abnormal movements- Primary Abnormal movements documented in this encounter Historical Medications * This list may reflect changes made after this encounter. clonazePAM (KLONOPIN) 1 mg tablet Take 1 Tablet by mouth 2 times daily. 07/26/2023 cyclobenzaprine (FLEXERIL) 10 mg tablet Take by mouth as needed. (Only used for 5 days) 01/16/2024 04/01/2024 traZODone (DESYREL) 50 mg tablet 1 Tablet as needed. 04/01/2024 added in this encounter Care Teams Pipe Caulker Relationship Specialty Start Date End Date Ariana Dill DNP [address] [place] [address] PCP - General 08/07/23 Rach Waddell MD [address] [facility], [facility], [facility] [address] [place] [phone] Adult Daycare Coordinator Obstetrics and Gynecology 05/10/23 documented as of this encounter
--- OUTSIDE RECORDS SUMMARY | 2024-11-10 02:14 | XMS_ITS | Encounter Summary ---
Author Organization [facility] Address [address] [place] [address] Care Team Providers Care Test Design Engineer Name Role Phone Rach Waddell MD Unavailable Ariana Dill DNP Primary Care Provider [phone] Reason for Visit * Reason Comments Procedure colpo Encounter Details Date Type Department Care Team (Late st Contact Info) Description 02/01/2024 9:15 EDT Procedure visit [facility] OBGYN Services - [address] [id number] Nora Dang MD [address] [facility], [address] [place] [address] Preop testing (Primary Dx); Atypical squamous cells cannot exclude high grade squamous intraepithelial lesion on cytologic smear of cervix (ASC-H) Social History Tobacco Use Types Packs/Day Years [...] Sign Reading Time Taken Comments Blood Pressure 94/72 02/01/2024 0923 EDT Pulse - - Temperature - - [...] this encounter Patient Instructions * Patient Instructions* Glendy Maciel MA - 02/01/2024 9:15 EDT Colposcopy Instructions A Colposcopy is performed to evaluate the cervix, vagina, and vulva using a colposcope. Biopsies are often performed at the same time. If biopsies are done, a special paste may be applied to your cervix to stop any bleeding. You may use pads for any spotting or light bleeding that might occur and if the paste is used it is normal tohave a brownish-black discharge. Please do not put anything in your vagina such as tampons, douching or have intercourse for three (3) days. If biopsies are not done, the above limitations are not nec essary. Heavy bleeding is a complication that rarely happens after biopsies. If, however, within the next few days, you are soaking 1 large maxi pad an hour for 2 hours in a row, call our office during the hours of 8 am to 5 pm. After 5 pm, please go to the [facility] Emergency Department. Your biopsy and pap smear results will be phoned to you the week following your procedure between 9:00 am and 5:00 pm. If you have any questions or concerns, please don???t hesitate to call: [facility] MD Christiane Mayers NP Elisabeth Wegner, MD Tracy Maurer, MD documented in this encounter Progress Notes * Nora Dang MD - 02/01/2024 0915 EDT Images from the original note were not included. Colposcopy Procedure Note 33 y.o. Indications: ASC-H December 2023 History of cervical cytology, colposcopy, treatment: 2008, 2010, 2012 pap neg 2015 pap insuff 2020 pap and HPV neg 2022 pap neg, HPV pos (16, 18 neg) 11/2023 ASC-H, HPV pos Current contraception none Menopausal Status: premenopausal, LMP 01/22/24 Currently : No test negative Prior Hysterectomy: No No tobacco smoking, though does smoke MJ HIV: No Received Gardasil vaccine: Yes, Age at vaccination: 12 HPV vaccine given prior to onset intercourse: Yes Procedure Details The risks and benefits of the procedure and written informed consent obtained. Vulva inspected. Speculum placed in vagina and visualization of cervix achieved. Vagina and cervix soaked with acetic acid solution. Cervix and vagina painted with Lugol's solution. Exam was chaperoned by Dr. Dang and VINEET Fisher. Image: Cervical colposcopy: Visualization of the cervix: Fully Visualized Visualization of the SCJ: Fully Visualized Acetowhite Changes: Yes Normal Colposcopic Findings: Original Squamous Epithelium Abnormal Colposcopic Findings: Lesions Present: Yes Location of Lesion: 11 o'clock course mosaic and some punctation Satellite Lesion Location: 5 o'clock Vaginalcolposcopy: vaginal colposcopy not performed. Vulvar inspection: No visible lesions. Clinical Impressions: Colposcopy: High Grade Specimens: Cervix: 10 O'Clock and 11 o'clock, several biopsy sites Final Diagnosis A. CERVIX, 10 AND 11 [...] detached fragments of IFRAH 2 and 3. Complications: None. Plan: Patient will be called with pathology results and recommendations next week. Instructions sheet given to patient. Pt seen and procedure performed with Dr. Dang. Kaylene Dillon MD Attestation statement: I was present during the entire procedure and agree with the resident's note. Nora Dang MD 02/01/2024 10:31 02/05/24: TC to patient notifying her of surg path results of IFRAH 2 and IFRAH 3. Needs LEEP procedure. Got premedicated before colposcopy and will do this again. She will ask her PCP to prescribe for her. Christiane Munoz NP for Dr. Nora Dang MD CC: Ariana Dill DNP documented in this encounter Miscellaneous Notes * Addendum Note - Nora Dang MD - 02/01/2024 0915 EDTAddended by: NORA DANG on: 02/01/2024 11:56 Modules accepted: Orders documented in this encounter Plan of Treatment Upcoming Encounters Date Type Department Care Team (Late st Contact Info) Description 11/18/2024 8:15 EST Office Visit [facility] Pelvic Medicine and Reconstructive Surgery - Medical Office Building [facility] [address] [place], [place] [id number] Julia Terrell PA-C [address] [facility] Medical Office Building, [address] [place] [phone] 11/25/2024 8:00 EST Rehab Therapy Visit [facility] Rehabilitation Therapy - Medical Office Building [address] [place] [address] Cira Jackson DPT [address] [place] [address], [facility], [address] [place] [phone] 12/02/2024 8:00 EST Rehab Therapy Visit [facility] Rehabilitation Therapy - Medical Office Building [address] [place] [address] Cira Jackson DPT [address] [place] [address], [facility], [address] [place] [phone] 12/09/2024 8:00 EST Rehab Therapy Visit [facility] Rehabilitation Therapy - Medical Office Building [address] [place] [address] Cira Jackson DPT [address] [place] [address], [facility], [address] [place] [phone] 12/16/2024 9:00 EST Rehab Therapy Visit [facility] Rehabilitation Therapy - Medical Office Building [address] [place] [address] Cira Jackson DPT [address] [place] [address], [facility], [address] [place] [phone] 12/23/2024 9:00 EST Rehab Therapy Visit [facility] Rehabilitation Therapy - Medical Office Building [address] [place], [place] [phone] Cira Jackson, DPT [address] [facility], [address], [address] [place] [address] documented as of this encounter Procedures Procedure Name Priority Date/Time Associated Diagnosis Comments SURGICAL PATHOLOGY Routine 02/01/2024 11 :57 EDT Atypical squamous cells cannot exclude high grade squamous intraepithelial lesion on cytologic smear of cervix (ASC-H) POCT TEST, CLINITEK Routine 02/01/2024 9:35 EDT Preop testing POCT CSN BARCODE URINE PREG TEST Routine 02/01/2024 9:25 EDT Preop testing POCT TEST, CLINITEK ORDER Routine 02/01/2024 9:25 EDT Preop testing documented in this encounter Results * SURGICAL PATHOLOGY (02/01/2024 11:57 EDT) Note to Patient The following pathology results have been interpreted by your pathologist and may be available to you before your health provider has had the opportunity to review them. Please allow time for your provider to receive these results and explore management options, if applicable. 02/05/2024 13:22 EDT [facility] Final Diagnosis A. 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 See comment. - Benign endocervical cells. B. 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 - Scant detached benign endocervical cells. 02/05/2024 13:22 EDT [facility] Diagnosis Comment The biopsy from part A shows IFRAH 2 in areas bordering on IFRAH 3. The biopsy from part B shows detached fragments of IFRAH 2 and 3. 02/05/2024 13:22 T [facility] Attestation There was significant resident/fellow involvement in the diagnostic evaluation of this case. By the signature below, the attending physician certifies that they have personally conducted a gross and/or microscopic examination of the described specimens and rendered or confirmed the above diagnosis. 02/05/2024 13:22 [facility] at 1322 Clinical History ASC-H Pap; clinical diagnosis code: R87.611 02/05/2024 13:22 [facility] Gross Description A. Received in formalin labelled with proper patient identification (initials M, N) and 10 and 11 o'clock is an aggregate of mitchell-white wispy tissues and translucent to blood-tinged mucus (0.6 x 0.5 x 0.1 cm). Entirely submitted in A1. B. Received in formalin labelled with proper patient identification (initials M, N) and 12 o'clock is an aggregate of mitchell-white wispy tissues and a scant amount of translucent mucus (0.5 x 0.3 x 0.1 cm). Entirely submitted in B1. Virginia Lam 02/01/2024 13:31 02/05/2024 13:22 T [facility] Resident/Asad w: Toño Cunningham DO 02/05/2024 13:22 T [facility] Performing Lab [facility] 13:22 T [facility] Scanned Images 02/05/2024 13:22 [facility] Tissue CERVIX UTERI STRUCTURE / Unknown Collection, Other / Unknown 02/01/2024 11:57 EDT 02/01/2024 13:10 EDT Tissue specimen (specimen) CERVIX UTERI STRUCTURE / Unknown 02/01/2024 11:57 EDT 02/01/2024 13:10 EDT us Nora Dang MD PATHOLOGY ORDERABLES Final Result [facility] [address] [place] [address] * POCT TEST, CLINITEK (02/01/2024 9:35 EDT) UPT Result Negative Negative 02/01/2024 9:41 EDT [facility] HN LAB COMMENT (CLINITEK, UPT) Test performed at [facility] 02/01/2024 9:41 EDT [facility] Comment:False negative resul ts may occur in women who are beyond 5-8 weeks gestation. Diagnosis of should be based on a correlation of test results with typical clinical signs and symptoms. Urine URINE SPECIMEN OBTAINED BY CLEAN CATCH PROCEDURE / Unknown 02/01/2024 9:35 EDT 02/01/2024 9:41 EDT us Nora Dang MD POINT OF CARE TEST ORDERAB LES Final Result Performing Organization Address [facility]/ZIP Co de Phone Number [facility] [address] [place] [address] * POCT CSN BARCODE URINE PREG TEST (02/01/2024 9:25 EDT) Urine URINE SPECIMEN OBTAINED BY CLEAN CATCH PROCEDURE / Unknown 02/01/2024 9:25 EDT 02/01/2024 9:25 EDT us Nora Dang MD LAB INFO SERVICE AND SUPPO RT & PHONE RESULT Final Result Performing Organization Address [facility]/ZIP Co de Phone Number [facility] [address] [place] [address] documented in this encounter Visit Diagnoses Diagnosis Preop testing- Primary Preoperative examination, unspecified Atypical squamous cells cannot exclude high grade squamous intraepithelial lesion on cytologic smear of cervix (ASC-H) Papanicolaou smear of cervix with atypical squamous cells cannot exclude high grade squamous intraepithelial lesion (ASC-H) documented in this encounter Care Teams Test Design Engineer Relationship Specialty Start Date End Date Ariana Dill DNP [address] [place] [address] PCP - General 08/07/23 Rach Waddell MD [address] [facility], [facility] [address] [place] [phone] Cleaning Machine Operator Obstetrics and Gynecology 05/10/23 documented as of this encounter
--- OUTSIDE RECORDS SUMMARY | 2024-11-10 02:15 | XMS_ITS | Encounter Summary ---
Author Organization [facility] Address [address] [place] [address] Care Team Providers Care Cleaner Industrial Name Role Phone Rach Waddell MD Unavailable [phone] Ariana Dill DNP Primary Care Provider [phone] Reason for Referral * Radiology Services (Routine/Next Available) - Authorized Specialty Diagnoses / Procedures Referred By Contac t Referred To Contact Radiology Diagnoses Urinary incontinence, unspecified type Procedures MR THORACIC SPINE WO CONTRAST MR THORACIC SPINE WO CONTRAST Caitlin Snow PA-C Phone: tel: fax: [facility] Referral ID Status Reason Start Date Expiration Date V isits Requested Visits Authorized [id number] Authorized 10/25/2023 12/23/2023 1 1 Reason for Visit * Radiology Services (Routine/Next Available) - Authorized Specialty Diagnoses / Procedures Referred By Contac t Referred To Contact Radiology Diagnoses Urinary incontinence, unspecified type Procedures MR THORACIC SPINE WO CONTRAST MR THORACIC SPINE WO CONTRAST Caitlin Snow PA-C Phone: tel: fax: [facility] Referral ID Status Reason Start Date Expiration Date V isits Requested Visits Authorized [id number] Authorized 10/25/2023 12/23/2023 1 1 Encounter Details Date Type Department Care Team (Latest Contact Info) Description 11/14/2023 16:31 EST - 11/14/2023 23:59 EST Hospital Encounter [facility] [address] [place] [address] Urinary incontinence, unspecified type Discharge Disposition: Home or Self Care Social [...] hearing? Answer Date of Assessment Author No 10/27/2021 8:27 Lois Vega RN * Are you blind or do [...] Answer Entry Date Author No 10/27/2021 8:27 EST Lois Deal RN documented in this encounter Medications at Time of Discharge albuterol 90 mcg/actuation inhaler Inhale 2 Puffs as directed every 4 hours. 1 Inhaler 0 08/10/2014 clonazePAM (KLONOPIN) 1 mg tablet Take 1 Tablet by mouth 2 times daily. 07/26/2023 HYDROcodone-acet aminophen (NORCO) 5-325 mg tablet Take 1 Tablet by mouth every 8 hours as needed for Pain. 08/03/2023 inhalational spacing device (BREATHERITE MDI SPACER) Use with a metered dose inhaler, as directed. May be dispensed with mask as appropriate.. 1 Each 0 08/10/2014 lidocaine 5 % (LIDODERM) 5 % patch APPLY 2 PATCHS ON THE SKIN ONCE DAILY UP TO 12 HOURS ON AND 12 HOURS OFF 20 Patch 1 08/21/2023 acetaminophen (TYLENOL) 500 mg tablet Take 2 Tablets by mouth every 8 hours as needed for Pain. 180 Tablet 10/29/2021 4 HYDROcodone-acet aminophen (NORCO) 5-325 mg tablet Take 1 Tablet by mouth every 6 hours as needed for Pain. Daily Max: 4 Tablets 10 Tablet 04/05/2023 4 HYDROcodone-acet aminophen (NORCO) 5-325 mg tablet Take 1 Tablet by mouth every 6 hours as needed for Pain. Daily Max: 4 Tablets 10 Tablet 12/16/2022 4 sertraline (ZOLOFT) 25 mg tablet Take 1 Tablet by mouth daily. 30 Tablet 10/30/2021 4 documented as of this encounter Discharge Disposition Disposition Code Departure Means Destination Home or Self Care documented in this encounter Plan of Treatment Upcoming Encounters Date Type Department Care Team (Late st Contact Info) Description 11/18/2024 8:15 EST Office Visit [facility] Pelvic Medicine and Reconstructive Surgery - Medical Office Building [facility] [address] [place] [address] Julia Terrell PA-C [address] [place] [address] Medical Office Building, [address] [phone] 11/25/2024 8:00 EST Rehab Therapy Visit [facility] Rehabilitation Therapy - Medical Office Building [address] [place] [address] Cira Jackson, DPT [address] [place] [address], [facility], [address] [place] [phone] 12/02/2024 8:00 EST Rehab Therapy Visit [facility] Rehabilitation Therapy - Medical Office Building [address] [place] [address] Cira Jackson, KEMALT [address] [place] [address], [facility], [address] [place] [phone] 12/09/2024 8:00 EST Rehab Therapy Visit [facility] Rehabilitation Therapy - Medical Office Building [address] [place] [address] Cira Jackson, DPT [address] [place] [address], [facility], [address] [place] [phone] 12/16/2024 9:00 EST Rehab Therapy Visit [facility] Rehabilitation Therapy - Medical Office Building [address] [place] [address] Cira Jackson, DPT [address] [place] [address], [facility], [address] [place] [phone] 12/23/2024 9:00 EST Rehab Therapy Visit [facility] Rehabilitation Therapy - Medical Office Building [address] [place] [address] Cira Jackson, DPT [address] [place] [address], [facility], [address] [place] [address] documented as of this encounter Procedures Procedure Name Priority Date/Time Associated Diagnosis Comments MR THORACIC SPINE WO CONTRAST Routine 11/14/2023 17:28 EST Urinary incontinence, unspecified type documented in this encounter Results * MR THORACIC SPINE WO CONTRAST (11/14/2023 17:28 EST) Anatomical Region Laterality Modality Spine Magnetic Resonan ce 11/15/2023 8:14 EST Impressions 11/15/2023 8:14 EST 1. No signal abnormality within the spinal cord. 2. Degenerative disc disease with protrusions and bulges result in flattening of the ventral spinal cord at the T5-6, T6-7, T7-8, and T8-9 levels, but there is no significant spinal canal stenosis. [id number] Narrative 11/15/2023 8:14 EST EXAM: MRI THORACIC SPINE WO CONTRAST HISTORY: Chronic bladder incontinence, long tract signs on exam TECHNIQUE: MRI of the thoracic spine without contrast. Structured report code: [id number] COMPARISON: MRI lumbar spine 09/07/2023 FINDINGS: SURGICAL CHANGES: None. ALIGNMENT: No significant spondylolisthesis. BONES: No significant vertebral body height loss. No concerning lesions. INTERVERTEBRAL DISCS: Disc protrusions at T5-6, T6-7, and T8-9 and a disc bulge at T7-8. SPINAL CANAL AND SPINAL CORD: There is flattening of the ventral spinal cord related to degenerative disc disease at T5-6, T6-7, T7-8, and T8-9. No significant spinal canal stenosis. No high- grade stenosis in the cervical spinal canal on the limited sagittal localizer view. No abnormal cord signal intensity. No fluid collections. NEURAL FORAMINA: No significant stenosis. VISIBLE EXTRASPINAL SOFT TISSUES: Unremarkable. Procedure Note Darren Kearney MD - 11/15/2023 EXAM: MRI THORACIC SPINE WO CONTRAST HISTORY: Chronic bladder incontinence, long tract signs on exam TECHNIQUE: MRI of the thoracic spine without contrast. Structured reportcode: [id number] COMPARISON: MRI lumbar spine 09/07/2023 FINDINGS: SURGICAL CHANGES: None. ALIGNMENT: No significant spondylolisthesis. BONES: No significant vertebral body height loss. No concerning lesions. INTERVERTEBRAL DISCS: Disc protrusions at T5-6, T6-7, and T8-9 and a disc bulge at T7-8. SPINAL CANAL AND SPINAL CORD: There is flattening of the ventral spinal cord related to degenerativedisc disease at T5-6, T6-7, T7-8, and T8-9. No significant spinal canalstenosis. No high-grade stenosis in the cervical spinal canal on thelimited sagittal localizer view. No abnormal cord signal intensity. Nofluid collections. NEURAL FORAMINA: No significant stenosis. VISIBLE EXTRASPINAL SOFT TISSUES: Unremarkable. IMPRESSION 1. No signal abnormality within the spinal cord. 2. Degenerative disc disease with protrusions and bulges result inflattening of the ventral spinal cord at the T5-6, T6-7, T7-8, and T8-9levels, but there is no significant spinal canal stenosis. [id number] Caitlin Snow PA-C IMG MRI ORDERABLES Milena l Result documented in this encounter Visit Diagnoses Diagnosis Urinary incontinence, unspecified type documented in this encounter Care Teams Cleaner Industrial Relationship Specialty Start Date End Date Ariana Dill DNP [address] [place] [address] PCP - General 08/07/23 Rach Waddell MD [address] [place] [address], [facility], [address] [place] [address] Switchboard And Control Room Operator Obstetrics and Gynecology 05/10/23 documented as of this encounter
--- OUTSIDE RECORDS SUMMARY | 2024-11-10 02:15 | XMS_ITS | Encounter Summary ---
Author Organization [facility] Address [address] [place] [address] Care Team Providers Care Director Quality Systems Name Role Phone Rach Waddell MD Unavailable [phone] Ariana Dill DNP Primary Care Provider [phone] Reason for Referral * Radiology Services (Routine/Next Available) - Closed Specialty Diagnoses / Procedures Referred By Contac t Referred To Contact Radiology Diagnoses Pelvic pain syndrome Procedures MR LUMBAR SPINE WO CONTRAST MR LUMBAR SPINE W WO CONTRAST Rach Waddell MD Phone: tel: fax: [facility] Referral ID Status Reason Start Date Expiration Date Visits Re quested Visits Authorized [id number] Closed 08/29/2023 10/27/2023 1 1 Reason for Visit * Radiology Services (Routine/Next Available) - Closed Specialty Diagnoses / Procedures Referred By Contac t Referred To Contact Radiology Diagnoses Pelvic pain syndrome Procedures MR LUMBAR SPINE WO CONTRAST MR LUMBAR SPINE W WO CONTRAST Rach Waddell MD Phone: tel: fax: [facility] Referral ID Status Reason Start Date Expiration Date Visits Re quested Visits Authorized [id number] Closed 08/29/2023 10/27/2023 1 1 Encounter Details Date Type Department Care Team (Latest Contact Info) Description 09/07/2023 9:33 EST - 09/07/2023 23:59 EST Hospital Encounter [facility] [address] [place] [address] Pelvic pain syndrome Discharge Disposition: Home or Self Care Social [...] Lois Vega RN documented in this encounter Medications at [...] needed for Pain. 180 Tablet 10/29/2021 4 docusate sodium (COLACE) 100 mg capsule Take 1 capsule by mouth 2 times daily. 60 capsule 10/29/2021 3 HYDROcodone-acet aminophen (NORCO) 5-325 mg tablet Take 1 Tablet by mouth every 6 hours as needed for Pain. Daily Max: 4 Tablets 10 Tablet 04/05/2023 4 HYDROcodone-acet aminophen (NORCO) 5-325 mg tablet Take 1 Tablet by mouth every 6 hours as needed for Pain. Daily Max: 4 Tablets 10 Tablet 12/16/2022 4 polyethylene glycol 3350 (MIRALAX) 17 gram packet Take 17 g by mouth daily. 30 Each 10/30/2021 3 sertraline (ZOLOFT) 25 mg tablet Take 1 Tablet by mouth daily. 30 Tablet 10/30/2021 4 documented as of this encounter Discharge Disposition Disposition Code Departure Means Destination Home or Self Care documented in this encounter Plan of Treatment Upcoming Encounters Date Type Department Care Team (Late st Contact Info) Description 11/18/2024 8:15 EST Office Visit [facility] Pelvic Medicine and Reconstructive Surgery - Medical Office Building [facility] [address] [place] [address] Julia Terrell PA-C 2 [facility] Medical Office Building, [address] [place] [phone] 11/25/2024 8:00 EST Rehab Therapy Visit [facility] Rehabilitation Therapy - Medical Office Building [address] [place] [address] Cira Jackson, DPT [address] [place] [address], [facility], [address] [place] [phone] 12/02/2024 8:00 EST Rehab Therapy Visit [facility] Rehabilitation [facility] - Medical Office Building [address] [place] [address] Cira Jackson, ROBRETO [address] [place] [address], [address] [place] [phone] 12/09/2024 8:00 EST Rehab Therapy Visit [facility] Rehabilitation Therapy - Medical Office Building [address] [place] [address] Cira Jackson, DPT [address] [place] [address], [facility], [address] [place] [phone] 12/16/2024 9:00 EST Rehab Therapy Visit [facility] Rehabilitation Therapy - Medical Office Building [address] [place] [address] Cira Jackson, KEMALT [address] [place] [address], [facility], [address] [place] [phone] 12/23/2024 9:00 EST Rehab Therapy Visit [facility] Rehabilitation Therapy - Medical Office Building [address] [place] [address] Cira Jackson DPT [address] [facility], [facility], [address] [place] [address] documented as of this encounter Procedures Procedure Name Priority Date/Time Associated Diagnosis Comments MR LUMBAR SPINE WO CONTRAST Routine 09/07/2023 11:18 EST Pelvic pain syndrome documented in this encounter Results * MR LUMBAR SPINE WO CONTRAST (09/07/2023 11:18 EST) Anatomical Region Laterality Modality Spine Magnetic Resonan ce 09/07/2023 11:2 8 EST Impressions 09/07/2023 11:28 EST Large central/right paracentral disc extrusion at L5-S1 abuts the traversing right S1 nerve root within the subarticular recess with mild spinal canal stenosis. Additional mild left neuroforaminal narrowing at this level. No other significant degenerative changes in the lumbar spine. [id number] Narrative 09/07/2023 11:28 EST EXAM: MRI LUMBAR SPINE WO CONTRAST HISTORY: Pelvic pain syndrome/incontinence TECHNIQUE: MRI of the lumbar spine without contrast. Structured report code: [id number].[id number] COMPARISON: None. FINDINGS: SURGICAL CHANGES: None. ALIGNMENT: Normal. BONES: [...] right S1 nerve root within the subarticular recess. Mild left and no right neuroforaminal narrowing. Procedure Note Kitty Cavazos MD - 09/07/2023 EXAM: MRI LUMBAR SPINE WO CONTRAST HISTORY: Pelvic pain syndrome/incontinence TECHNIQUE: MRI of the lumbar spine without contrast. Structured reportcode: NR.[id number] COMPARISON: None. FINDINGS: SURGICAL CHANGES: None. ALIGNMENT: Normal. BONES: No significant vertebral body height loss. No concerning lesions. INTERVERTEBRAL DISCS: Mild disc space narrowing at L5-S1 with disc desiccation. SPINAL CANAL: The conus terminates normally. No abnormality of the cauda equina. Nofluid collections. VISIBLE EXTRASPINAL SOFT TISSUES: Unremarkable. EVALUATION BY LEVEL: L1-L2 through L4-5: No disc herniation, spinal canal stenosis orneuroforaminal narrowing. Facet arthropathy at L4-5. L5-S1: Mild diffuse annular disc bulge with a central/right paracentraldisc extrusion with superior and inferior migration measuring 19 x 7 x 15mm (TV by AP by CC) contributes to mild spinal canal stenosis withabutment and mass effect on the traversing right S1 nerve root within thesubarticular recess. Mild left and no right neuroforaminal narrowing. IMPRESSION Large central/right paracentral disc extrusion at L5-S1 abuts thetraversing right S1 nerve root within the subarticular recess with mildspinal canal stenosis. Additional mild left neuroforaminal narrowing atthis level. No other significant degenerative changes in the lumbar spine. [id number] Rach Waddell MD IMG MRI ORDERABLES Final Res ult documented in this encounter Visit Diagnoses Diagnosis Pelvic pain syndrome Pelvic congestion syndrome documented in this encounter Care Teams Director Quality Systems Relationship Specialty Start Date End Date Ariana Dill DNP [address] [place] [address] PCP - General 08/07/23 Rach Waddell MD [address] [place] [address] [address] [place] [address] Domestic Travel Consultant Obstetrics and Gynecology 05/10/23 documented as of this encounter
--- OUTSIDE RECORDS SUMMARY | 2024-11-10 02:15 | XMS_ITS | Encounter Summary ---
Author Organization [facility] Address [address] [place] [address] Care Team Providers Care Ticket Collector Name Role Phone Rach Waddell MD Unavailable [phone] Ariana Dill DNP Primary Care Provider [phone] Reason for Visit * Reason Onset Date Comments Advice Only 01/08/2024 Encounter Details Date Type Department Care Team (Late st Contact Info) Description 01/08/2024 Telephone [facility] OBGYN Services - [address] [id number] Rach Waddell MD [address] [facility], [address] [place] [address] Advice Only Social History Tobacco [...] encounter Miscellaneous Notes * Telephone Encounter - Alma Castro RN - 01/08/2024 0836 EDT TC to patient who reports urinary incontinence x 10 days along with seizure like activity last evening. Patient did have urinary culture that showed negative for infection at this time. Informed patient that she should be seen at the nearest emergency room for an evaluation due to her neurological symptoms. Patient reported being scared and TLC given. Called ED triage line and report given. Patient will present to ED this morning. * Telephone Encounter - Daniela Michael - 01/08/2024 0860 EDT Are you calling for gynecological, obstetric, or reproductive care? Gynecological Have you been seen here before? Yes If yes, who do you see? Dr. Waddell Reason for Call as described by patient: Expressed concern of UTI turning into a kidney infection. Continued urinary incontinence. Reports seizure-like episode last night, seeking recommendations for next steps of care. Unsure if she should go to ED. Desires US for further evaluation, due to hx of cysts. What is the best phone number for us to reach you back at? [phone] Does this number have a voicemail, is it ok to leave a detailed message? Yes Daniela Michael 01/08/2024 8:25 documented in this encounter Plan of Treatment Upcoming Encounters Date Type Department Care Team (Late st Contact Info) Description 11/18/2024 8:15 EST Office Visit [facility] Pelvic Medicine and Reconstructive Surgery - Medical Office [address] 818[address] Julia Terrell PA-C [address] [place] [address] Medical Office [facility], [address] [place] [phone] 11/25/2024 8:00 EST Rehab Therapy Visit [facility] Rehabilitation Therapy - Medical Office [address] [address] Cira Jackson DPT [address] [place] [address], [address] [place] [phone] 12/02/2024 8:00 EST Rehab Therapy Visit [facility] Rehabilitation Therapy - Medical Office Building [address] [place] [address] Cira Jackson DPT [address] [place] [address], [address] [place] [phone] 12/09/2024 8:00 EST Rehab Therapy Visit [facility] Rehabilitation Therapy - Medical Office Building [address] [place] [address] Cira Jackson DPT [address] [place] [address], [facility], [address] [place] [phone] 12/16/2024 9:00 EST Rehab Therapy Visit [facility] Rehabilitation Therapy - Medical Office Building [address] [place] [address] Cira Jackson DPT [address] [place] [address], [facility], [address] [place] [phone] 12/23/2024 9:00 EST Rehab Therapy Visit [facility] Rehabilitation [facility] - Medical Office [address] [address] Cira Jackson DPT [address] [place] [address], [facility], [address] [place] [phone] documented as of this encounter Visit Diagnoses Not on filedocumented in this encounter Care Teams Ticket Collector Relationship Specialty Start Date End Date Ariana Dill DNP [address] [place] [address] PCP - General 08/07/23 Rach Waddell MD [address] [facility], [facility], [address] [place] [phone] Rocket Engine Mechanic Obstetrics and Gynecology 05/10/23 documented as of this encounter
--- OUTSIDE RECORDS SUMMARY | 2024-11-10 02:15 | XMS_ITS | Encounter Summary ---
Author Organization [facility] Address [address] [place] [address] Care Team Providers Care Video Effects Editor Name Role Phone Rach Waddell MD Unavailable [phone] Ariana Dill DNP Primary Care Provider Encounter Details Date Type Department Care Team (Late st Contact Info) Description 08/29/2023 Lab Requisition [facility] Pathology & Laboratory Medicine - [facility] [address] [place] [address] Ariana Dill DNP [address] [place], [place] [address] Other fatigue; Iron deficiency Social History Tobacco Use Types Packs/Day Years [...] 11/18/2024 8:15 EST Office Visit [facility] Pelvic Medicine and Reconstructive Surgery - Medical Office Building [facility] [address] [place], [place] [address] Julia Terrell PA-C [address] [facility] Medical Office Building, [address] [place] [phone] 11/25/2024 8:00 EST Rehab Therapy Visit [facility] Rehabilitation Therapy - Medical Office Building [address] [place], [place] [address] Cira Jackson DPT [address] [facility], [facility], [address] [place] [phone] 12/02/2024 8:00 EST Rehab Therapy Visit [facility] Rehabilitation Therapy - Medical Office Building [address] [place] [address] Cira Jackson, DPT [address] [place] [address], [facility], [address] [place] [phone] 12/09/2024 8:00 EST Rehab Therapy Visit [facility] Rehabilitation Therapy - Medical Office Building [address] [place] [address] Cira Jackson, DPT [address] [place] [address], [facility], [address] [place] [phone] 12/16/2024 9:00 EST Rehab Therapy Visit [facility] Rehabilitation Therapy - Medical Office [address] [address] Cira Jackson, DPT [address] [place] [address], [facility], [address] [place] [phone] 12/23/2024 9:00 EST Rehab Therapy Visit [facility] Rehabilitation [facility] - Medical Office [address] [address] Cira Jackson, DPT [address] [place] [address], [facility], [address] [place] [phone] documented as of this encounter Procedures Procedure Name Priority Date/Time Associated Diagnosis Comments THYROID CASCADE Today 08/29/2023 14:33 EST Other fatigue VITAMIN D (25,OH) Today 08/29/2023 14: 33 EST Other fatigue IBC Today 08/29/2023 14:33 EST Other fatigue IRON Today 08/29/2023 14:33 EST Other fatigue [ICD-10-CM] Iron deficiency FERRITIN Today 08/29/2023 14:33 EST Other fatigue VITAMIN B12 Today 08/29/2023 14:33 EST Other fatigue COMPREHENSIVE METABOLIC PANEL (CMP) Today 08/29/2023 14:33 EST Other fatigue documented in this encounter Results * IRON (08/29/2023 14:33 EST) Iron 60 37 - 170 ??g/dL 08/31/2023 8:18 EST [facility] Blood VENOUS BLOOD / Unknown 08/29/2023 14:33 EST 08/29/2023 20:12 EST [facility] CHEMISTRY & BLOOD GAS ORD ERABLES Final Result [facility] [address] [place] [address] * IBC (08/29/2023 14:33 EST) Iron Binding Capacity 417 240 - 450 ??g/dL 08/29/2023 20:54 EST [facility] Blood VENOUS BLOOD / Unknown 08/29/2023 14:33 EST 08/29/2023 20:12 EST [facility] CHEMISTRY & BLOOD GAS ORD ERABLES Final Result [facility] [address] [place] [address] * (ABNORMAL) FERRITIN (08/29/2023 14:33 EST) Ferritin 5(L) 10 - 291 ng/mL 08/30/2023 9:39 EST [facility] Blood VENOUS BLOOD / Unknown 08/29/2023 14:33 EST 08/29/2023 20:12 EST [facility] CHEMISTRY & BLOOD GAS ORD ERABLES Final Result [facility] [address] [place] [address] * VITAMIN B12 (08/29/2023 14:33 EST) Vitamin B12 357 211 - 911 pg/mL 08/30/2023 9:32 EST [facility] Blood VENOUS BLOOD / Unknown 08/29/2023 14:33 EST 08/29/2023 20:12 EST [facility] DNP CHEMISTRY & BLOOD GAS ORD ERABLES Final Result Performing Organization Address City/[facility]/ZIP Co de Phone Number [facility] [address] [place] [address] * (ABNORMAL) VITAMIN D (25,OH) (08/29/2023 14:33 EST) 25OH Vitamin D Tot 28(L) 30 - 100 ng/mL 08/30/2023 10:12 EST [facility] Comment: Vitamin D 25,OH Interpretive Ranges: Deficiency: ??<10.0 ng/mL Insufficiency: ??10.0 - 30.0 ng/mL Sufficiency: ??30.0 - 100.0 ng/mL Toxicity: ??>100.0 ng/mL Blood VENOUS BLOOD / Unknown 08/29/2023 14:33 EST 08/29/2023 20:12 EST [facility]TRA Testing DNP CHEMISTRY & BLOOD GAS ORD ERABLES Final Result Performing Organization Address City/[facility]/ZIP Co de Phone Number [facility] [address] [place] [address] * THYROID CASCADE (08/29/2023 14:33 EST) TSH 1.96 0.47 - 4.68 mIU/L 08/29/2023 21:19 [facility] Blood VENOUS BLOOD / Unknown 08/29/2023 14:33 EST 08/29/2023 20:12 EST Narrative [facility] - 08/29/2023 21:19 EST NOTE: The results of this assay can be falsely lowered due to the consumption of Biotin. Ariana Dill [facility] [place] CHEMISTRY & BLOOD GAS ORD ERABLES Final Result [facility] [address] [place] [address] * (ABNORMAL) COMPREHENSIVE METABOLIC PANEL (CMP) (08/29/2023 14:33 EST) Sodium 139 136 - 145 mmol/L 08/29/2023 20:45 [facility] Potassium 4.0 3.5 - 5.0 mmol/L 08/29/2023 20:45 [facility] Chloride 105 96 - 110 mmol/L 08/29/2023 20:45 [facility] CO2 Total 21(L) 22 - 32 mmol/L 08/29/2023 20:45 [facility] Glucose 85 70 - 99 mg/dl 08/29/2023 20:45 [facility] BUN 12 10 - 26 mg/dL 08/29/2023 20:45 [facility] Creatinine 0.55 0.52 - 1.04 mg/dL 08/29/2023 20:45 [facility] eGFR 124 >60 mL/min/1.7 3m2 08/29/2023 20:45 [facility] Total Protein 8.3(H) 6.3 - 8.2 g/dL 08/29/2023 20:45 [facility] Albumin 4.8 3.4 - 4.9 g/dL 08/29/2023 20:45 [facility] Alkaline Phosphatase 53 38 - 126 U/L 08/29/2023 20:45 [facility] AST 24 15 - 46 U/L 08/29/2023 20:45 [facility] ALT 16 <35 U/L 08/29/2023 20:45 [facility] Bilirubin, Total 0.9 <1.4 mg/dL 08/29/20 20:45 EST [facility] Calcium 9.5 8.5 - 10.5 mg/dL 08/29/2023 20:45 [facility] Albumin/Globulin Ratio 1.4 1.0 - 2.5 g/dL 08/29/2023 20:45 [facility] Anion Gap 13 5 - 14 mmol/L 08/29/2023 20:45 [facility] Blood VENOUS BLOOD / Unknown 08/29/2023 14:33 EST 08/29/2023 20:12 EST Ariana Dill DNP CHEMISTRY & BLOOD GAS ORD ERABLES Final Result [facility] [address] [place] [address] documented in this encounter Visit Diagnoses Diagnosis Other fatigue Iron deficiency Iron deficiency anemia, unspecified documented in this encounter Additional Health Concerns Infection Onset Date Last Indicated Resolved Time R/O COVID 01/11/2024 01/11/2024 01/11/2024 22:3 5 EDT documented as of this encounter Care Teams Video Effects Editor Relationship Specialty Start Date End Date Ariana Dill DNP [address] [place] [address] PCP - General 08/07/23 Rach Waddell MD 111 [facility], [facility] [address] [place] [address] Lapper Obstetrics and Gynecology 05/10/23 documented as of this encounter
--- OUTSIDE RECORDS SUMMARY | 2024-11-10 02:15 | XMS_ITS | Encounter Summary ---
Author Organization [facility] Address [address] [place] [address] Care Team Providers Care Steam Distribution Supervisor Name Role Phone Rach Waddell MD Unavailable Ariana Dill DNP Primary Care Provider [phone] Reason for Visit * Reason Onset Date Comments Appointment Related 11/22/2023 Encounter Details Date Type Department Care Team (Late st Contact Info) Description 11/22/2023 Telephone [facility] Interventional Pain [address] [place] [address] Cheri Russell PA-C [address] [facility] [address] [place] [address] Appointment Related Social History Tobacco [...] encounter Miscellaneous Notes * Telephone Encounter - Leona Miranda - 11/22/2023 1140 EST Left message on VM letting patient know that appointment on 11/23 at 1:45 with Power can not be held. Told patient to reach out jennifer to see if still available documented in this encounter Plan of Treatment Upcoming Encounters Date Type Department Care Team (Late st Contact Info) Description 11/18/2024 8:15 EST Office Visit [facility] Pelvic Medicine and Reconstructive Surgery - Medical Office Building [facility] [address] [place] [address] Julia Terrell PA-C [address] [place] [address] Medical Office [facility], [address] [phone] 11/25/2024 8:00 EST Rehab Therapy Visit [facility] Rehabilitation Therapy - Medical Office Building [address] [place] [address] Cira Jackson, ROBERTO [address] [place] [address], [facility], [address] [place] [phone] 12/02/2024 8:00 EST Rehab Therapy Visit [facility] Rehabilitation Therapy - Medical Office Building [address] [place] [address] Cira Jackson, ROBERTO [address] [place] [address], [facility], [address] [place] [phone] 12/09/2024 8:00 EST Rehab Therapy Visit [facility] Rehabilitation Therapy - Medical Office Building [address] [place] [address] Cira Jackson DPT [address] [place] [address], [facility], [address] [place] [phone] 12/16/2024 9:00 EST Rehab Therapy Visit [facility] Rehabilitation Therapy - Medical Office Building [address] [place] [address] Cira Jackson, DPT [address] [place] [address], [facility], [address] [place] [phone] 12/23/2024 9:00 EST Rehab Therapy Visit [facility] Rehabilitation Therapy - Medical Office Building [address] [place] [address] Cira Jackson DPT [address] [place] [address], [facility], [address] [place] [phone] documented as of this encounter Visit Diagnoses Not on filedocumented in this encounter Care Teams Steam Distribution Supervisor Relationship Specialty Start Date End Date Ariana Dill DNP [address] [place] [address] PCP - General 08/07/23 Rach Waddell MD 111 [facility], [address] [place] [address] Credit Risk Associate Obstetrics and Gynecology 05/10/23 documented as of this encounter
--- OUTSIDE RECORDS SUMMARY | 2024-11-10 02:15 | XMS_ITS | Encounter Summary ---
Author Organization [facility] Address [address] [place] [address] Care Team Providers Care Tannery Worker Name Role Phone Rach Waddell MD Unavailable [phone] Ariana Dill DNP Primary Care Provider Encounter Details Date Type Department Care Team (Late st Contact Info) Description 12/29/2023 Lab Requisition [facility] Pathology & Laboratory Medicine - [facility] [address] [place] [address] Ariana Dill DNP [address] [place], [place] [id number] Encounter for screening for malignant neoplasm of cervix Social History Tobacco Use Types Packs/Day Years [...] Info) Description 11/18/2024 8:15 EST Office Visit [facility] Pelvic Medicine and Reconstructive Surgery - Medical Office Building [facility] [address] [place], [place] [phone] Julia Terrell PA-C 2 [facility] Medical Office Building, [address] [place] [phone] 11/25/2024 8:00 EST Rehab Therapy Visit [facility] Rehabilitation Therapy - Medical Office Building [address] [place], [place] [phone] Cira Jackson DPT [address] [facility], [facility], [address] [place] [phone] 12/02/2024 8:00 EST Rehab Therapy Visit [facility] Rehabilitation Therapy - Medical Office Building [address] [place] [address] Cira Jackson, DPT [address] [place] [address], [facility], [address] [place] [phone] 12/09/2024 8:00 EST Rehab Therapy Visit [facility] Rehabilitation Therapy - Medical Office Building [address] [place] [address] Cira Jackson, ROBERTO [address] [place] [address], [facility], [address] [place] [phone] 12/16/2024 9:00 EST Rehab Therapy Visit [facility] Rehabilitation Therapy - Medical Office [address] [address] Cira Jcakson, KEMALT [address] [place] [address], [facility], [address] [place] [phone] 12/23/2024 9:00 EST Rehab Therapy Visit [facility] Rehabilitation [facility] - Medical Office [address] [address] iCra Jackson, DPT [address] [place] [address], [facility], [address] [place] [phone] documented as of this encounter Procedures Procedure Name Priority Date/Time Associated Diagnosis Comments PAP TEST Today 12/29/2023 17:22 EST Encounter for screening for malignant neoplasm of cervix CHLAMYDIA/N. GONORRHOEAE AMPLIFIED NUCLEIC ACID, THINPREP Today 12/29/2023 17:22 EST Encounter for screening for malignant neoplasm of cervix HPV DNA DETECTION WITH GENOTYPING, PCR Today 12/29/2023 17:22 EST Encounter for screening for malignant neoplasm of cervix documented in this encounter Results * (ABNORMAL) HUMAN PAPILLOMAVIRUS (HPV) DETECTION-HIGH RISK TYPES (12/29/2023 17:22 EST) HPV other High Risk types, PCR Positive( A) Negative 01/05/2024 14:09 EDT [facility] Comment:E6 OR E7 mRNA from o ne or more types of HPV types 16,18,31,33,35,39,45,51,52,56,58,59,66, and 68 is detected by customer support professional mediated amplification. High and intermediate risk HPV types are associated with most squamous intraepithelial lesions and cervical cancers. Pap Test CERVIX UTERI STRUCTURE / Unknown 12/29/2023 17:22 EST 01/04/2024 11:26 EDT [facility]CRO[facility] - GENERAL OR DERABLES Final Result Performing Organization Address City/[facility] Co de Phone Number [facility] [address] [place] [phone] * CHLAMYDIA/N. GONORRHOEAE AMPLIFIED RNA, THINPREP (12/29/2023 17:22 EST) Neisseria gonorrhoeae Result Negative Negative 01/01/2024 13:54 EDT [facility] Chlamydia trachomatis Result Negative Negative 01/01/2024 13:54 EDT [facility] Pap Test CERVIX UTERI STRUCTURE / Unknown 12/29/2023 17:22 EST 01/01/2024 9:25 EDT [facility] MICROBIOLOGY - GENERAL OR DERABLES Final Result Performing Organization Address City/[facility]/ZIP Co de Phone Number [facility] [address] [place] [address] * PAP TEST (12/29/2023 17:22 EST) Specimens A. Cervix and/or Endocervix , ThinPrep Imaging System with Manual Evaluation 01/05/2024 14:09 [facility] Specimen Adequacy Satisfactory for Evaluation - transformation zone component present 01/05/2024 14:09 [facility] General Categorization Epithelial Cell Abnormality 01/05/2024 14:09 [facility] Descriptive Diagnosis Squamous Cell Abnormality - Atypical squamous cells, cannot exclude high grade squamous intraepithelial lesion (ASC-H). 01/05/2024 14:09 [facility] Educational Comments [facility] recommends following the ASCCP's management guidelines which may be found at www.asccp.org 01/05/2024 14:09 [facility] Attestation By the signature below, the attending physician certifies that they have personally conducted a gross and/or microscopic examination of the described specimens and rendered or confirmed the above diagnosis. 01/05/2024 14:09 [facility] at 1409 Clinical History Clinical History, Signs, Symptoms, Chief Complaint, Pertaining to This Order: See below Last Menstral Period: 12.21.23 ?: No Post-?: No Hormone/Contracep tive Use?: No SENIOR CLINICAL PROJECT MANAGER Treatment History?: No 01/05/2024 14:09 [facility] HPV The result for the Human Papillomavirus (HPV) Detection-High Risk Types is Positive . E6 OR E7 mRNA from one or more types of HPV types 16,18,31,33,35,39 ,45,51,52,56,58,5 9,66, and 68 is detected by customer support professional mediated amplification. High and intermediate risk HPV types are associated with most squamous intraepithelial lesions and cervical cancers. Testing was performed on specimen [id number] and was resulted on 01/05/2024 1409 EDT by GELY, LAB INSTRUMENT RESULTS IN 01/05/2024 14:09 [facility] Performing Lab [facility] 01/05/2024 14:09 [facility] Scanned Images 01/05/2024 14:09 [facility] Pap Test CERVIX UTERI STRUCTURE / Unknown 12/29/2023 17:22 EST 01/01/2024 13:31 EDT Ariana Dill DNP PATHOLOGY ORDERABLES Milena l Result [facility] [address] [place] [address] documented in this encounter Visit Diagnoses Diagnosis Encounter for screening for malignant neoplasm of cervix Screening for malignant neoplasm of the cervix documented in this encounter Additional Health Concerns Infection Onset Date Last Indicated Resolved Time R/O COVID 01/11/2024 01/11/2024 01/11/2024 22:3 5 EDT documented as of this encounter Care Teams Tannery Worker Relationship Specialty Start Date End Date Ariana Dill DNP [address] [place] [address] PCP - General 08/07/23 Rach Waddell MD 111 [facility], [facility], [address] [place] [phone] Lacing String Cutter Obstetrics and Gynecology 05/10/23 documented as of this encounter
--- OUTSIDE RECORDS SUMMARY | 2024-11-10 02:15 | XMS_ITS | Encounter Summary ---
Author Organization [facility] Address [address] [place] [address] Care Team Providers Care Watershed Program Manager Name Role Phone Rach Waddell MD Unavailable Ariana Dill DNP Primary Care Provider [phone] Encounter Details Date Type Department Care Team (Late st Contact Info) Description 09/26/2023 Orders Only [facility] Total Joint Program - [address] [place] [address] Caitlin Snow PA-C [address] [place] [address] Social History Tobacco Use Types Packs/Day Years [...] 11/18/2024 8:15 EST Office Visit [facility] Pelvic Medicine and Reconstructive Surgery - Medical Office Building [facility] [address] [place], [place] [phone] Julia Terrell PA-C 7[address] [facility] Medical Office Building, [address] [place] [phone] 11/25/2024 8:00 EST Rehab Therapy Visit [facility] Rehabilitation Therapy - Medical Office Building [address] [place], [place] [phone] Cira Jackson DPT 792 [facility], [facility], [address] [place] [phone] 12/02/2024 8:00 EST Rehab Therapy Visit [facility] Rehabilitation Therapy - Medical Office Building [address] [place] [address] Cira Jackson DPT [address] [place] [address], [facility], [address] [place] [phone] 12/09/2024 8:00 EST Rehab Therapy Visit [facility] Rehabilitation Therapy - Medical Office Building [address] [place] [address] Cira Jackson DPT [address] [place] [address], [facility], [address] [place] [phone] 12/16/2024 9:00 EST Rehab Therapy Visit [facility] Rehabilitation Therapy - Medical Office [address] [address] Cira Jackson DPT [address] [place] [address], [facility], [address] [place] [phone] 12/23/2024 9:00 EST Rehab Therapy Visit [facility] Rehabilitation [facility] - Medical Office [address] [address] Cira Jackson DPT [address] [place] [address], [facility], [address] [place] [phone] documented as of this encounter Visit Diagnoses Not on filedocumented in this encounter Additional Health Concerns Infection Onset Date Last Indicated Resolved Time R/O COVID 01/11/2024 01/11/2024 01/11/2024 22:3 5 EDT documented as of this encounter Care Teams Watershed Program Manager Relationship Specialty Start Date End Date Ariana iDll DNP [address] [place] [address] PCP - General 08/07/23 Rach Waddell MD 111 [facility], [facility] 4 [place] [phone] Picture Engraver Obstetrics and Gynecology 05/10/23 documented as of this encounter
--- OUTSIDE RECORDS SUMMARY | 2024-11-10 02:15 | XMS_ITS | Encounter Summary ---
Author Organization [facility] Address [address] [place] [address] Care Team Providers Care Business Analytics Faculty Member Name Role Phone Rach Waddell MD Unavailable [phone] Ariana Dill DNP Primary Care Provider Encounter Details Date Type Department Care Team (Late st Contact Info) Description 12/27/20[address] Lab Re[address] [facility] Pathology & Laboratory Medicine - [facility] [address] [place] [address] Ariana Dill DNP [address] [place], [place] [address] Other fatigue; Iron deficiency; Polyarthritis, unspecified Social History Tobacco Use Types Packs/Day Years [...] Building [facility] [address] [place] [address] Julia Terrell PA-C 2 [facility] Medical Office Building, [address] [place] [phone] 11/25/2024 8:00 EST Rehab Therapy Visit [facility] Rehabilitation Therapy - Medical Office Building [address] [place], [place] [phone] Cira Jackson DPT 792 [facility], [facility], [address] [place] [phone] 12/02/2024 8:00 EST Rehab Therapy Visit [facility] Rehabilitation Therapy - Medical Office Building [address] [place] [address] Cira Jackson, DPT [address] [place] [address], [facility], [address] [place] [phone] 12/09/2024 8:00 EST Rehab Therapy Visit [facility] Rehabilitation Therapy - Medical Office Building [address] [place] [address] Cira Jackson, DPT [address] [place] [address], [facility], [address] [place] [phone] 12/16/2024 9:00 EST Rehab Therapy Visit [facility] Rehabilitation Therapy - Medical Office Building [address] [place] [address] Cira Jackson, DPT [address] [place] [address], [facility], [address] [place] [phone] 12/23/2024 9:00 EST Rehab Therapy Visit [facility] Rehabilitation Therapy - Medical Office Building [address] [place] [address] Cira Jackson, DPT [address] [place] [address], [facility], [address] [place] [phone] documented as of this encounter Procedures Procedure Name Priority Date/Time Associated Diagnosis Comments SYMPTOMATIC TICK PANEL Today 14:36 EST Polyarthritis, unspecified ANAPLASMA AND BABESIA TESTING BY PCR Today 12/27/2023 14:36 EST Polyarthritis, unspecified HOLD SST Today 12/27/2023 14:36 EST Other fatigue Iron deficiency Polyarthritis, unspecified THYROID CASCADE Today 12/27/2023 14:36 EST Polyarthritis, unspecified LYME AB Today 12/27/2023 14:36 EST Polyarthritis, unspecified RHEUMATOID FACTOR Today 12/27/2023 14: 36 EST Polyarthritis, unspecified C REACTIVE PROTEIN Today 12/27/2023 14 :36 EST Polyarthritis, unspecified ANTI NUCLEAR AB (FOX), IFA Today 12/27/2023 14:36 EST Polyarthritis, unspecified T4 FREE Today 12/27/2023 14:36 EST Polyarthritis, unspecified IRON Today 12/27/2023 14:36 EST Other fatigue Iron deficiency COMPREHENSIVE METABOLIC PANEL (CMP) Today 12/27/2023 14:36 EST Polyarthritis, unspecified documented in this encounter Results * T4 FREE (12/27/2023 14:36 EST) T4, Free 1.1 0.8 - 2.2 ng/dL 12/27/2023 21:03 EST [facility] Blood VENOUS BLOOD / Unknown 12/27/2023 14:36 EST 12/27/2023 19:36 EST Ariana Dill DNP CHEMISTRY & BLOOD GAS ORD ERABLES Final Result [facility] [address] [place] [address] * HOLD SST (12/27/2023 14:36 EST) Hold Hold 12/27/2023 20:46 EST [facility] Blood VENOUS BLOOD / Unknown 12/27/2023 14:36 EST 12/27/2023 19:37 EST [facility] INFO SERVICE AND SUPP ORT & PHONE RESULT Final Result Performing Organization Address [facility]/ZIP Co de Phone Number [facility] [address] [place] [address] * LYME AB (12/27/2023 14:36 EST) Lyme Ab Negative Negative 12/28/2023 10:55 EST [facility] Blood VENOUS BLOOD / Unknown 12/27/2023 14:36 EST 12/27/2023 19:36 EST [facility] IMMUNOLOGY AND SEROLOGY O RDERABLES Final Result Performing Organization Address City/[facility]/ZIP Co de Phone Number [facility] [address] [place] [address] * ANAPLASMA AND BABESIA TESTING BY PCR (12/27/2023 14:36 EST) Anaplasma phagocytophilum Negative Negative 12/28/2023 10:49 EST [facility] Babesia Species Negative Negative 10:49 EST [facility] Blood VENOUS BLOOD / Unknown 12/27/2023 14:36 EST 12/27/2023 19:36 EST Narrative [facility] - 12/28/2023 10:49 EST This test was developed and its performance characteristics determined by [facility]. It has not been cleared or approved by the US Food and Drug Administration. FDA does not require this test to go through premarket FDA review. This test is used for clinical purposes. It should not be regarded as investigational or research. This laboratory is certified under the Clinical Laboratory Improvement Amendments (CLIA) as qualified to perform high complexity clinical laboratory testing. [facility] Nurkanovic DNP CHEMISTRY & BLOOD GAS ORD ERABLES Final Result Performing Organization Address City/[facility]/ZIP Co de Phone Number [facility] [address] [place] [address] * (ABNORMAL) THYROID CASCADE (12/27/2023 14:36 EST) Pathologist [facility] TSH 6.25(H) 0.47 - 4.68 mIU/L 12/27/2023 20:39 EST [facility] Blood VENOUS BLOOD / Unknown 12/27/2023 14:36 EST 12/27/2023 19:36 EST Narrative [facility] - 12/27/2023 20:39 EST NOTE: The results of this assay can be falsely lowered due to the consumption of Biotin. [facility] CHEMISTRY & BLOOD GAS ORD ERABLES Final Result Performing Organization Address [facility] Co de Phone Number [facility] [address] [place] [address] * RHEUMATOID FACTOR (12/27/2023 14:36 EST) Pathologist [facility] Rheumatoid Factor <8.6 <12.0 IU/mL 12/27/2023 20:31 EST [facility] Blood VENOUS BLOOD / Unknown 12/27/2023 14:36 EST 12/27/2023 19:36 EST [facility] CHEMISTRY & BLOOD GAS ORD ERABLES Final Result Performing Organization Address City/[facility]/ZIP Co de Phone Number [facility] [address] [place] [address] * COMPREHENSIVE METABOLIC PANEL (CMP) (12/27/2023 14:36 EST) Pathologist [facility] Sodium 138 136 - 145 mmol/L 12/27/2023 20:30 EST [facility] Potassium 4.0 3.5 - 5.0 mmol/L 12/27/2023 20:30 [facility] Chloride 104 96 - 110 mmol/L 12/27/2023 20:30 [facility] CO2 Total 26 22 - 32 mmol/L 12/27/2023 20:30 [facility] Glucose 87 70 - 99 mg/dl 12/27/2023 20:30 [facility] BUN 13 10 - 26 mg/dL 12/27/2023 20:30 [facility] Creatinine 0.61 0.52 - 1.04 mg/dL 12/27/2023 20:30 [facility] eGFR 120 >60 mL/min/1.7 3m2 12/27/2023 20:30 [facility] Total Protein 7.7 6.3 - 8.2 g/dL 12/27/2023 20:30 [facility] Albumin 4.4 3.4 - 4.9 g/dL 12/27/2023 20:30 [facility] Alkaline Phosphatase 49 38 - 126 U/L 12/27/2023 20:30 [facility] AST 26 15 - 46 U/L 12/27/2023 20:30 [facility] ALT 15 <35 U/L 12/27/2023 20:30 [facility] Bilirubin, Total 1.2 <1.4 mg/dL 12/27/19 20:30 [facility] Calcium 9.5 8.5 - 10.5 mg/dL 12/27/2023 20:30 [facility] Albumin/Globulin Ratio 1.3 1.0 - 2.5 12/27/2023 20:30 [facility] Anion Gap 8 5 - 14 mmol/L 12/27/2023 20:30 [facility] Blood VENOUS BLOOD / Unknown 12/27/2023 14:36 EST 12/27/2023 19:36 EST us Mirsada Amankakaren DNP CHEMISTRY & BLOOD GAS ORD ERABLES Final Result [facility] [address] [place] [phone] * C REACTIVE PROTEIN (12/27/2023 14:36 EST) C-Reactive Protein <5.0 <10.0 mg/L 12/27/2023 20:30 EST [facility] Blood VENOUS BLOOD / Unknown 12/27/2023 14:36 EST 12/27/2023 19:36 EST [facility] CHEMISTRY & BLOOD GAS ORD ERABLES Final Result Performing Organization Address [facility] de Phone Number [facility] [address] [place] [address] * (ABNORMAL) ANTI NUCLEAR AB (FOX), IFA (12/27/2023 14:36 EST) Pathologist [facility] FOX Interpretation Positive(A) Negative 01/01/2024 16:18 EDT [facility] Comment: For titers greater than or equal to 1:160 (except the centromere and nucleolar patterns) it is recommended that specific follow-up autoantibody testing ??(such as for dsDNA and Extractable Nuclear Antigens) be performed on all diffuse and/or speckled patterns NOTE: For add-on testing dsDNA is stable for 7 days refrigerated while Extractable Nuclear Antigens are only stable for 48 hours refrigerated. Cytoplasmic Pattern Noted, Speckled FOX Titer and Pattern 1 1:640 Homogeneous 01/01/2024 16:18 EDT [facility] Blood VENOUS BLOOD / Unknown 12/27/2023 14:36 EST 12/27/2023 19:36 EST Narrative [facility] - 01/01/2024 16:18 EDT Results were obtained with the INOVA NOVA Lite HEp-2 FOX Kit by indirect immunofluorescence. [facility] IMMUNOLOGY AND SEROLOGY O RDERABLES Final Result Performing Organization Address [facility] Co de Phone Number [facility] [address] [place], [place] [phone] * IRON (12/27/2023 14:36 EST) Iron 113 37 - 170 ??g/dL 12/27/2023 20:30 EST [facility] Blood VENOUS BLOOD / Unknown 12/27/2023 14:36 EST 12/27/2023 19:36 EST us Ariana Dill DNP CHEMISTRY & BLOOD GAS ORD ERABLES Final Result [facility] [address] [place] [address] documented in this encounter Visit Diagnoses Diagnosis Other fatigue Iron deficiency Iron deficiency anemia, unspecified Polyarthritis, unspecified documented in this encounter Additional Health Concerns Infection Onset Date Last Indicated Resolved Time R/O COVID 01/11/2024 01/11/2024 01/11/2024 22:3 5 EDT documented as of this encounter Care Teams Business Analytics Faculty Member Relationship Specialty Start Date End Date Ariana Dill DNP [address] [place] [address] PCP - General 08/07/23 Rach Waddell MD 111 [facility], [address] [place] [address] Biomedical Engineering Professor Obstetrics and Gynecology 05/10/23 documented as of this encounter
--- OUTSIDE RECORDS SUMMARY | 2024-11-10 02:15 | XMS_ITS | Encounter Summary ---
Author Organization [facility] Address [address] [place] [address] Care Team Providers Care Retail Product Demo Specialist Name Role Phone Rach Waddell MD Unavailable [phone] Ariana Dill DNP Primary Care Provider [phone] Reason for Referral * Radiology Services (Routine/Next Available) - Authorized Specialty Diagnoses / Procedures Referred By Contac t Referred To Contact Radiology Diagnoses Urinary incontinence, unspecified type Procedures MR THORACIC SPINE WO CONTRAST MR THORACIC SPINE WO CONTRAST Caitlin Snow PA-C Phone: tel: fax: [facility] Referral ID Status Reason Start Date Expiration Date V isits Requested Visits Authorized [id number] Authorized 10/25/2023 12/23/2023 1 1 * Consult (Routine/Next Available) - Authorization Not Required Specialty Diagnoses / Procedures Referred By Contac t Referred To Contact Pain Medicine Diagnoses Lumbar disc herniation Radicular leg pain Coccydynia Caitlin Snow PA-C Phone: tel: fax: [facility] Interventional Pain [address] [place] [address] Phone: tel: fax: Referral ID Status Reason Start Date Expiration Date Visits Requested Visits Authorized [id number] Authorization Not Required Specialty Services Required 3 1 1 Question Answer Has the patient had diagnostic studies? Yes Diagnotic Studies: MRI/CT Have other specialty consultations been completed for this pain compliant? No We provide consultative services. We do not assume the role of prescribing physician for this therapy. Please help us understand your area of interest by selecting from the common topics below: Yes Should opioids be initiated on this patient? No Should opioids be continued on this patient? No Reason for Request: Chronic low back pain that is multifactorial. Patient has lumbar disc herniation with transient radicular leg pain as well as chronic coccydynia. Likely will benefit from multiple injections for chronic pain management. Comments Encourage consideration of lumbar KIRTI and coccyx RFA. * PT/OT/ST (Routine/Next Available) - Closed Specialty Diagnoses / Procedures Referred By Zackary corea Referred To Contact Diagnoses Lumbar disc herniation Radicular leg pain Coccydynia Caitlin Snow PA-C Phone: tel: fax: Referral ID Status Reason Start Date Expiration Date V isits Requested Visits Authorized [id number] Closed Specialty Services Required 09/26/2023 1 1 Question Answer Reason for Request: Chronic low back pain that is multifactorial. Suspect discogenic lumbar back pain with transient radicular right leg pain and chronic coccydynia. Care to focus on pain management modalities with strengthening and stabilization as tolerated Reason for Visit * Reason Comments Back Pain * Consult (Urgent) - Authorization Not Required Specialty Diagnoses / Procedures Referred By Zackary corea Referred To Contact Orthopedic Surgery Diagnoses Low back pain Chronic pain syndrome Ariana Dill DNP [address] [place] [address] Phone: tel: fax: [facility]ine [facility] - [place] [address] Phone: tel: fax: Referral ID Status Reason Start Date Expiration Date Visits Requested Visits Authorized [id number] Authorization Not Required 1 1 Encounter Details Date Type Department Care Team (Late st Contact Info) Description 09/26/2023 10:40 EST Office Visit [facility]ine [facility] - [facility] [address] [facility] [address] Caitlin Snow PA-C [address] [place] [address] Lumbar disc herniation (Primary Dx); Radicular leg pain; Coccydynia; Urinary incontinence, unspecified type Social History Tobacco [...] 10/27/2021 8:27 EST Lois Deal RN * Are you blind or do you have serious difficulty seeing, even when wearing glasses? Answer Date of Assessment Author No 10/27/2021 8:27 Lois Vega RN * Do you have serious difficulty walking or climbing stairs? (5 years old or older) Answer Date of Assessment Author No 10/27/2021 8:27 Losi Vega RN * Do you have difficulty [...] Progress Notes * Caitlin Snow PA-C - 09/26/2023 1040 EST Mine Lynn is being seen as a consultation from Dr. Dill. Chief Complaint Patient presents with ??? Back Pain The primary encounter diagnosis was Lumbar disc herniation. Diagnoses of Radicular leg pain, Coccydynia, and Urinary incontinence, unspecified type were also pertinent to this visit. HPI Ms. Lynn presents today with a history of chronic low back pain. [...] knee. There is no associated numbness or tingling in this leg. Does feel weakness in this leg that she correlates onset to when she had her spinal in 2021. Has had chronic coccydynia since her first delivery in 2015. Uses a donut for sitting. Does not tolerate prolongedseating long due to flared lumbar and coccyx pain. In the last year and a half has developed chronic though intermittent bladder incontinence of unclear etiology. Back pain is worse with prolonged sitting, driving and when she is on her menses. Improved when lying down and with self traction. 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 HPI Patient Active Problem List Diagnosis ??? Spastic pelvic floor syndrome ??? Urge urinary incontinence ??? Encounter for maternal care for low transverse scar from repeat delivery ??? Chronic pelvic pain in female ??? Abnormal uterine bleeding Past Medical History: Diagnosis Date ??? Anxiety, generalized Ativan intermittently during ??? Pelvic floor dysfunction Past Surgical History: Procedure Laterality Date ??? OTHER SURGICAL HISTORY 2008 Excision of periurethral cysts at [facility] Social History Tobacco Use ??? Smoking status: Never ??? Smokeless tobacco: Never Substance Use Topics ??? Alcohol use: No Comment: social Family History Problem Relation Age of Onset ??? Asthma Mother ??? Hypertension Father Current Outpatient Medications Medication Sig Dispense Refill ??? acetaminophen (TYLENOL) 500 mg tablet Take 2 Tablets by mouth every 8 hours as needed for Pain.180 Tablet 0 ??? albuterol 90 mcg/actuation inhaler Inhale 2 Puffs as directed every 4 hours. (Patient not taking: Reported on 05/10/2023) 1 Inhaler 0 ??? HYDROcodone-acetaminophen (NORCO) 5-325 mg tablet Take 1 Tablet by mouth every 6 hours as needed for Pain. Daily Max: 4 Tablets 10 Tablet 0 ??? HYDROcodone-acetaminophen (NORCO) 5-325 mg tablet Take 1 Tablet by mouth every 6 hours as needed for Pain. Daily Max: 4 Tablets 10 Tablet 0 ??? inhalational spacing device (BREATHERITE MDI SPACER) Use with a metered dose inhaler, as directed. May be dispensed with mask as appropriate.. 1 Each 0 ??? lidocaine 5 % (LIDODERM) 5 % patch APPLY 2 PATCHS ON THE SKIN ONCE DAILY UP TO 12 HOURS ON AND 12 HOURS OFF 20 Patch 1 ??? sertraline (ZOLOFT) 25 mg tablet Take 1 Tablet by mouth daily. (Patient not taking: Reported on09/26/2023) 30 Tablet 0 No current facility-administered medications for this visit. Allergies Allergen Reactions ??? Imitrex [Sumatriptan Succinate] Shortness Of Breath Review of Systems Cardiovascular: Negative for chest pain and palpitations. Genitourinary: Positive for difficulty urinating. Musculoskeletal: Positive for back pain. Negative for neck pain. Neurological: Positive for weakness. Negative for numbness. Psychiatric/Behavioral: Positive for dysphoric mood. The patient is nervous/anxious. Physical Exam gait is normal. Able to heel and toe walk. Active full range of motion lumbar spine in all planes. Tenderness at the lumbosacral junctional spinous process and paravertebral muscles bilaterally as well as right greater than left SI joints. More significant tenderness directly over thecoccyx. Strength 4+/5 right, 5/5 left hip flexors, 4+/5 right, 5/5 left quads, 4+/5 right, 5/5 lefthamstrings, 4+/5 right, 5/5 left TA, 4+/5 right, 5/5 left EHL, 4+/5 right, 5/5 left peroneals. Sensation light touch is intact throughout the bilateral legs. Reflexes are 2+ patellar and Achilles bilaterally. 1-2 beats of clonus right-sided, negative left-sided. Negative Francesco's. 2+ reflexes of the bicep tricep and brachial radialis bilaterally. Negative straight leg raise bilaterally. Passiverange of motion without pain or crepitus bilaterally. Negative Xena's bilaterally. Dorsalis pedis pulses are intact. No pedal edema. Ortho Exam Neurologic Exam The prior workup of the patient includes: We reviewed lumbar MRI dated September 07, 2023. Imaging shows normal bony alignment. Disc desiccation at L4-5 and L5- S1 with mild loss of disc height at L5-S1. L4-5 mild facet hypertrophy with no central or foraminal stenosis. L5-S1 global disc bulge with asuperimposed central and right paracentral disc extrusion with both superior and inferior disc migration producing mild central stenosis. Abuts the traversing right S1 nerve root in the lateral recess. Mild left and no right-sided foraminal stenosis. We reviewed x-rays of the sacrum coccyx dated November 06, 2018. SI joints symmetric with no erosions. Angulation to the left of the midline of the lower coccyx with retrolisthesis of one of the coccygeal segments seen on lateral view. Assessment 32-year-old female with chronic low back pain, intermittent [...] symptoms track into proximal mixed L5-S1 distribution. She has diffuse weakness in the right leg on exam today nondermatomal distribution, no othersigns of active radiculopathy. Chronic bladder incontinence of unclear etiology. There is no findings on the lumbar MRI that would explain this. She has a history of chronic pelvic pain and pelvic dysfunction following her pregnancies. Urinary incontinence may be secondary to a genitourinary or neurologic etiology. Of concern she does have clonus on exam though no other signs of hyperreflexia. Wediscussed the option of further workup to rule out cord impingement proximally that could contribute to her urinary symptoms given the focal long track signs seen on exam. She would like to move forward with this. Will start with a thoracic MRI for further workup including packing inspector view to assess for the cervical spine broadly. She has follow-up scheduled with neurology for further workup regarding her urinary symptoms. We discussed multiple treatment options for her back pain to include expectantmanagement, physical therapy, nurse healthcare manager, acupuncture, medication trials, injection therapy and surgical options to treat her disc herniation. She declines trial neuroleptics at this time. Allher questions have been answered today and she is comfortable with the following plan. Other Orders Placed This Visit Procedures ??? MR THORACIC SPINE WO CONTRAST ??? Amb Consult/Follow Up Physical Therapy Outside of Network ??? Amb Consult/Follow Up Pain Interventional Plan: 1: Consult with the pain center for consideration of both lumbar L5-S1 KIRTI and injection options totreat her chronic coccydynia to include steroid versus ablation options 2: Referral for physical therapy given 3: Thoracic MRI ordered 4: Continue pain medications as prescribed by PCP 5: Follow-up with spine status post thoracic MRI for imaging review and for clinical recheck following injections. 6: Return to clinic sooner if develops worsening radiating right leg pain and weakness to consider surgical intervention for disc herniation. Dr. Sosa was available for consultation, however consult not required. All or part of this document has been prepared with speech recognition software and/or keyboard oracle database manager techniques. Minor irregularities may be present. I spent a total of 48 minutes on the date of this encounter meeting with the patient and reviewing documentation/coordinating care as described in the above note. documented in this encounter Plan of Treatment Upcoming Encounters Date Type Department Care Team (Late st Contact Info) Description 11/18/2024 8:15 EST Office Visit [facility] Pelvic Medicine and Reconstructive Surgery - Medical Office Building [facility] [address] [place] [address] Julia Terrell PA-C [address] [facility] Medical Office [facility], [address] [place] [phone] 11/25/2024 8:00 EST Rehab Therapy Visit [facility] Rehabilitation Therapy - Medical Office [address] [address] Cira Jackson DPT [address] [place] [address] [address] [place] [phone] 12/02/2024 8:00 EST Rehab Therapy Visit [facility] Rehabilitation Therapy - Medical Office Building [address] [place] [address] Cira Jackson DPT [address] [place] [address], [address] [place] [phone] 12/09/2024 8:00 EST Rehab Therapy Visit [facility] Rehabilitation Therapy - Medical Office Building [address] [place] [address] Cira Jackson DPT [address] [place] [address] [address] [place] [phone] 12/16/2024 9:00 EST Rehab Therapy Visit [facility] Rehabilitation Therapy - Medical Office Building [address] [place], [place] [address] Cira Jackson DPT [address] [facility], [facility] [place], [address] [place] [phone] 12/23/2024 9:00 EST Rehab Therapy Visit [facility] Rehabilitation Therapy - Medical Office Building [address] [place], [place] [address] Cira Jackson DPT [address] [facility], [facility] [place], [address] [place] [phone] Scheduled Referrals Name Type Priority Associated Diagnoses Order Schedule AMB CONS/FOLLOW UP PHYSICAL THERAPY - OUTSIDE OF NETWORK Outpatient Referral Routine/Next Available Lumbar disc herniation Radicular leg pain Coccydynia Expected: 10/03/2023 (Approximate), Expires: 09/26/2024 AMB CONS/FOLLOW UP PAIN INTERVENTIONAL Outpatient Referral Routine/Next Available Lumbar disc herniation Radicular leg pain Coccydynia Expected: 10/03/2023 (Approximate), Expires: 09/26/2024 documented as of this encounter Results * MR THORACIC SPINE [...] there is no significant spinal canal stenosis. [id number] Narrative 11/15/2023 8:14 EST EXAM: MRI THORACIC [...] there is no significant spinal canal stenosis. [id number] Caitlin Snow PA-C IMG MRI ORDERABLES Milena l Result documented in this encounter Visit Diagnoses Diagnosis Lumbar disc herniation- Primary Displacement of lumbar intervertebral disc without myelopathy Radicular leg pain Thoracic or lumbosacral neuritis or radiculitis, unspecified Coccydynia Other disorder of coccyx Urinary incontinence, unspecified type Urinary incontinence, unspecified type documented in this encounter Discontinued Medications Medication Sig Discontinue Reason Start Date End Da te docusate sodium (COLACE) 100 mg capsule Take 1 capsule by mouth 2 times daily. Therapy completed 10/29/2021 09/26/2023 polyethylene glycol 3350 (MIRALAX) 17 gram packet Take 17 g by mouth daily. Therapy completed 10/30/2021 09/26/2023 documented as of this encounter Care Teams Retail Product Demo Specialist Relationship Specialty Start Date End Date Ariana Dill DNP [address] [place] [address] PCP - General 08/07/23 Rach Waddell MD [address] [facility], [address] [place] [phone] Mangle Press Catcher Obstetrics and Gynecology 05/10/23 documented as of this encounter
--- OUTSIDE RECORDS SUMMARY | 2024-11-10 02:15 | XMS_ITS | Encounter Summary ---
Author Organization [facility] Address [address] [place] [address] Care Team Providers Care Irrigating Pump Operator Name Role Phone Rach Waddell MD Unavailable [phone] Ariana Dill DNP Primary Care Provider [phone] Encounter Details Date Type Department Care Team (Latest Contact Info) Description 01/10/2024 Travel Social History Tobacco Use Types Packs/Day [...] Medicine and Reconstructive Surgery - Medical Office [facility] [address] [place] [address] Julia Terrell PA-C [address] [place] [address] Medical Office [facility], [address] [place] [phone] 11/25/2024 8:00 EST Rehab Therapy Visit [facility] Rehabilitation Therapy - Medical Office [address] [address] Cira Jackson DPT [address] [place] [address], [address] [place] [phone] 12/02/2024 8:00 EST Rehab Therapy Visit [facility] Rehabilitation Therapy - Medical Office Building [address] [place] [address] Cira Jackson DPT [address] [place] [address], [address] [place] [phone] 12/09/2024 8:00 EST Rehab Therapy Visit [facility] Rehabilitation Therapy - Medical Office Building [address] [place] [address] Cira Jackson, DPT [address] [place] [address], [facility], [address] [place] [phone] 12/16/2024 9:00 EST Rehab Therapy Visit [facility] Rehabilitation Therapy - Medical Office Building [address] [place] [address] Cira Jackson, DPT [address] [place] [address], [facility], [address] [place] [phone] 12/23/2024 9:00 EST Rehab Therapy Visit [facility] Rehabilitation Therapy - Medical Office Building [address] [place] [address] Cira Jackson, DPT [address] [place] [address], [facility], [address] [place] [phone] documented as of this encounter Visit Diagnoses Not on filedocumented in this encounter Care Teams Irrigating Pump Operator Relationship Specialty Start Date End Date Ariana Dill DNP [address] [place] [address] PCP - General 08/07/23 Rach Waddell MD [address] [place] [address], [facility] [address] [place] [phone] Mail Distributor Obstetrics and Gynecology 05/10/23 documented as of this encounter
--- OUTSIDE RECORDS SUMMARY | 2024-11-10 02:15 | XMS_ITS | Encounter Summary ---
Author Organization [facility] Address [address] [facility] [place] [address] Care Team Providers Care Drafting Engineer Name Role Phone Rach Waddell MD Unavailable [phone] Ariana Dill DNP Primary Care Provider [phone] Encounter Details Date Type Department Care Team (Latest Contact Info) Description 11/08/2023 Travel Social History Tobacco Use Types Packs/Day [...] Info) Description 11/18/2024 8:15 EST Office Visit [facility] Pelvic Medicine and Reconstructive Surgery - Medical Office [facility] [address] [place] [address] Julia Terrell PA-C [address] [place] [address] Medical Office [facility], [address] [place] [phone] 11/25/2024 8:00 EST Rehab Therapy Visit [facility] Rehabilitation Therapy - Medical Office [address] [address] Cira Jackson DPT [address] [place] [address], [address] [place] [phone] 12/02/2024 8:00 EST Rehab Therapy Visit [facility] Rehabilitation Therapy - Medical Office Building [address] [place] [address] Cira Jackson DPT [address] [place] [address], [address] [place] [phone] 12/09/2024 8:00 EST Rehab Therapy Visit [facility] Rehabilitation Therapy - Medical Office Building [address] [place] [address] Cira Jackson, DPT [address] [place] [address], [facility], [address] [place] [phone] 12/16/2024 9:00 EST Rehab Therapy Visit [facility] Rehabilitation Therapy - Medical Office Building [address] [place] [address] Cira Jackson, DPT [address] [place] [address], [facility], [address] [place] [phone] 12/23/2024 9:00 EST Rehab Therapy Visit [facility] Rehabilitation Therapy - Medical Office Building [address] [place] [address] Cira Jackson, DPT [address] [place] [address], [facility], [address] [place] [phone] documented as of this encounter Visit Diagnoses Not on filedocumented in this encounter Care Teams Drafting Engineer Relationship Specialty Start Date End Date Ariana Dill DNP [address] [place] [address] PCP - General 08/07/23 Rach Waddell MD [address] [place] [address], [facility] [address] [place] [phone] Junior Art Director Obstetrics and Gynecology 05/10/23 documented as of this encounter
--- OUTSIDE RECORDS SUMMARY | 2024-11-10 02:15 | XMS_ITS | Encounter Summary ---
Author Organization [facility] Address [address] [place] [address] Care Team Providers Care Anatomy Professor Name Role Phone Rach Waddell MD Unavailable Ariana Dill DNP Primary Care Provider [phone] Reason for Visit * Reason Onset Date Comments Coordination Of Care 01/11/2024 Encounter Details Date Type Department Care Team (Late st Contact Info) Description 01/11/2024 Telephone [facility] OBGYN Services - [facility] [address] [place], [place] [id number] Rach Waddell MD 111 [facility], [address] 4 [place] [address] Coordination Of Care Social History Tobacco Use Types Packs/Day [...] Telephone Encounter - Alma Castro RN - 01/11/2024 1250 EDT TC to patient and discussed that recent results of her PAP indicate a need for colposcopy. Patient scheduled for colposcopy and discussed expectations. Patient will follow up with office if any otherfollow up is needed after her PCP appt tomorrow. * Telephone Encounter - Gail Birmingham RN - 01/11/2024 1147 EDT LVM for pt MCM sent GAIL BIRMINGHAM RN 01/11/2024 11:47 * Telephone Encounter - Cira Brooks - 01/11/2024 1121 EDT Are you calling for gynecological, obstetric, or reproductive care? Gynecological Have you been seen here before? Yes If yes, who do you see (Refer to if cant remember)? Dr. Waddell Reason for Call as described by patient: Pt has been having episodes of epileptic seizures along with other issues. On Monday, pt called this office, and Alma advised her to do to ED. Pt didn't go then, but went to ED yesterday. Blood work was abnormal, she had a US and they found a ovary on rightcyst. Her pap from 12/28 was also abnormal and indicated she has cysts on her cervix. Her PCP recommended a cervical biopsy, looking to schedule this with Dr. Waddell. She also may need f/u either way for the cyst. Pt will see PCP tomorrow regarding cyst they found in ED. What is the best phone number for us to reach you back at? [phone] Does this number have a voicemail, is it ok to leave a detailed message? Yes, call anytime. Cira Brooks 01/11/2024 11:21 documented in this encounter Plan of Treatment Upcoming Encounters Date Type Department Care Team (Late st Contact Info) Description 11/18/2024 8:15 EST Office Visit [facility] Pelvic Medicine and Reconstructive Surgery - Medical Office Building [facility] [address] [place] [phone] Julia Terrell PA-C 2 [facility] Medical Office Building, [address] [place] [phone] 11/25/2024 8:00 EST Rehab Therapy Visit [facility] Rehabilitation Therapy - Medical Office Building [address] [place], [place] [address] Cira Jackson, DPT 2 [facility], [facility], [address] [place] [phone] 12/02/2024 8:00 EST Rehab Therapy Visit [facility] Rehabilitation Therapy - Medical Office Building [address] [place] [address] Cira Jackson, DPT [address] [place] [address], [facility], [address] [place] [phone] 12/09/2024 8:00 EST Rehab Therapy Visit [facility] Rehabilitation Therapy - Medical Office Building [address] [place] [address] Cira Jackson, KEMALT [address] [place] [address], [facility], [address] [place] [phone] 12/16/2024 9:00 EST Rehab Therapy Visit [facility] Rehabilitation Therapy - Medical Office [address] [address] Cira Jackson, DPT [address] [place] [address], [facility], [address] [place] [phone] 12/23/2024 9:00 EST Rehab Therapy Visit [facility] Rehabilitation Therapy - Medical Office Building [address] [place] [address] Cira Jackson, DPT [address] [place] [address], [facility], [address] [place] [phone] documented as of this encounter Visit Diagnoses Not on filedocumented in this encounter Care Teams Anatomy Professor Relationship Specialty Start Date End Date Ariana Dill DNP [address] [place] [id number] PCP - General 08/07/23 Rach Waddell MD 111 [facility] 4 [place] [address] Tumbler Drier Operator Obstetrics and Gynecology 05/10/23 documented as of this encounter
--- OUTSIDE RECORDS SUMMARY | 2024-11-10 02:15 | XMS_ITS | Encounter Summary ---
Author Organization [facility] Address [address] [place] [address] Care Team Providers Care Canvas Marker Name Role Phone Rach Waddell MD Unavailable [phone] Ariana Dill DNP Primary Care Provider [phone] Reason for Visit * Reason Comments Pain Follow-up * Consult (Urgent) - Authorization Not Required Specialty Diagnoses / Procedures Referred By Contac t Referred To Contact Orthopedic Surgery Diagnoses Low back pain Chronic pain syndrome Ariana Dill, DNP [address] [place] [address] Phone: tel: fax: [facility] [place] [address] [place] [address] Phone: tel: fax: Referral ID Status Reason Start Date Expiration Date Visits Requested Visits Authorized [id number] Authorization Not Required 1 1 Encounter Details Date Type Department Care Team (Late st Contact Info) Description 12/29/2023 10:20 EST Office Visit [facility] [place] [address] [place] [address] Caitlin Snow PA-C [address] [employer] [place] [address] Lumbar disc herniation (Primary Dx); Radicular leg pain; Coccydynia Social History Tobacco Use Types Packs/Day Years [...] Progress Notes * Caitlin Snow PA-C - 12/29/2023 1020 EST Subjective Ms. Lynn presents today for thoracic MRI review. She has a history of chronic low back pain. Symptoms started after her first labor and delivery in 2015, worsened after her second delivery in 2021. Describes dull intermittent pain to the central low back that extends bilaterally. Back pain is p redominantly right-sided. Since from 2021 delivery has had intermittent shooting pain down the right posterior lateral thigh to the knee. There is no associated numbness or tingling in this leg. Does feel weakness in this leg that she correlates onset to when she had her spinal C-sectionin 2021. Has had chronic coccydynia since her first delivery in 2015. Uses a donut for sitting. Does not tolerate prolonged seating long due to flared lumbar and coccyx pain. In the last year and a half has developed chronic though intermittent bladder incontinence of unclear etiology. Back pain isworse with prolonged sitting, driving and when she is on her menses. Improved when lying down and with self traction. She has tried formal courses of PT and career services manager approximately 2 years ago that offered no significant effect. No prior injections. Currently using ibuprofen and hydrocodoneas needed for pain management. She is previously used lidocaine patches, THC and marijuana for management. Overall reports 70% back pain, 30% right leg pain. She feels equally bothered by her lumbar and coccyx pain. Denies any bowel dysfunction or saddle paresthesia. No prior lumbar surgeries. 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 Since her last visit she has consulted with the pain center and is scheduled for an L5-S1 KIRTI in January. Urinary symptoms unchanged, has been diagnosed with overactive bladder and pelvic floor dysfunction. Overall reports worsening low back and radiating right leg pain since last evaluation. Objective We reviewed thoracic MRI dated November 14, 2023. Showing normal bony alignment. Disc protrusions atT5-6, T6-7, T8-T9 and disc bulging at T7-T8. Flattening of the ventral aspect at the site of spinalcord secondary to disc degeneration at T5-6, T6-7, T7-T8 and T8-T9 with no significant central stenosis. Spinal cord has normal signal intensity throughout. No foraminal [...] for cord involvement in her urinary symptoms. At this time I recommend she continue to proceed with the scheduled L5-S1 KIRTI for therapeutic effect. Pending response to this injection may consider surgical intervention for her sizable disc herniation. I have also encouraged her to follow-up with the pain center to discuss injection options for her chronic coccydynia. Follow-up with spine as planned 2 weeks status post KIRTI, pending results consider surgeon consult for treatment of her disc herniation. In the meantime she is scheduled to consult with neurology. All of her questions been answered today and she is comfortable with this plan. Dr. Schulz was available for consultation, however consult not required. All or part of this document has been prepared with speech recognition software and/or keyboard health data analyst techniques. Minor irregularities may be present. I spent a total of 30 minutes on the date of this encounter meeting with the patient and reviewing documentation/coordinating care as described in the above note. documented in this encounter Plan of Treatment Upcoming Encounters Date Type Department Care Team (Late st Contact Info) Description 11/18/2024 8:15 EST Office Visit [facility] Pelvic Medicine and Reconstructive Surgery - Medical Office Building [facility] [address] [place] [address] Julia Terrell PA-C 2 [facility] Medical Office [facility], [address] [place] [phone] 11/25/2024 8:00 EST Rehab Therapy Visit [facility] Rehabilitation Therapy - Medical Office [place] [place] [address] Cira Jackson DPT [address] [place] [address], [address] [place] [phone] 12/02/2024 8:00 EST Rehab Therapy Visit [facility] Rehabilitation Therapy - Medical Office [address] [place] [place] [address] Cira Jackson DPT [address] [place] [address], [address] [place] [phone] 12/09/2024 8:00 EST Rehab Therapy Visit [facility] Rehabilitation Therapy - Medical Office Building [address] [place] [address] Cira Jackson DPT [address] [place] [address], [address] [place] [phone] 12/16/2024 9:00 EST Rehab Therapy Visit [facility] Rehabilitation Therapy - Medical Office Building [address] [place] [address] Cira Jackson DPT 2 [facility], [facility], [address] [place] [phone] 12/23/2024 9:00 EST Rehab Therapy Visit [facility] Rehabilitation Therapy - Medical Office Building [address] [place] [address] Cira Jackson DPT 7[address] [facility], [facility], [address] [place] [phone] documented as of this encounter Visit Diagnoses Diagnosis Lumbar disc herniation- Primary Displacement of lumbar intervertebral disc without myelopathy Radicular leg pain Thoracic or lumbosacral neuritis or radiculitis, unspecified Coccydynia Other disorder of coccyx documented in this encounter Historical Medications * This list may reflect changes made after this encounter. ibuprofen (MOTRIN) 200 mg tablet Take 1 Tablet by mouth as needed. added in this encounter Care Teams Canvas Marker Relationship Specialty Start Date End Date Ariana Dill DNP [address] [place] [address] PCP - General 08/07/23 Rach Waddell MD [address] [place] [address], [address] [place] [phone] Ticket Puller Obstetrics and Gynecology 05/10/23 documented as of this encounter
--- OUTSIDE RECORDS SUMMARY | 2024-11-10 02:15 | XMS_ITS | Encounter Summary ---
Author Organization [facility] Address [address] [place] [address] Care Team Providers Care Tool Builder Name Role Phone Rach Waddell MD Unavailable [phone] Ariana Dill DNP Primary Care Provider [phone] Reason for Visit * Reason Comments Medications Refill Encounter Details Date Type Department Care Team (Late st Contact Info) Description 08/18/[address] [facility] OBGYN Services - [address] [phone] Rach Waddell MD 111 [facility], [address] [place] [address] Medications Refill Social History Tobacco Use Types Packs/Day Years [...] Lois Vega RN documented in this encounter Ordered Prescriptions Prescription Sig Dispense Quantity Refills Last Filled Start Date End Date lidocaine 5 % (LIDODERM) 5 % patch APPLY 2 PATCHS ON THE SKIN ONCE DAILY UP TO 12 HOURS ON AND 12 HOURS OFF 20 Patch 1 08/21/2023 documented in this encounter Miscellaneous Notes * Telephone Encounter - Daniel Christensen RN - 08/21/2023 0903 EDT Requested Prescriptions Pending Prescriptions Disp Refills ??? lidocaine 5 % (LIDODERM) 5 % patch [Pharmacy Med Name: LIDOCAINE 5% PATCH] 20 Patch 1 Sig: APPLY 2 PATCHS ON THE SKIN ONCE DAILY UP TO 12 HOURS ON AND 12 HOURS OFF Pharmacy: [facility] Last Refill Date: 08/02/23 Last Visit Date: 05/26/23 Next Non-Acute Visit Date Scheduled with Care Team: No. Visit date not found Sent to provider for approval. DANIEL CHRISTENSEN RN 08/21/2023 9:03 documented in this encounter Plan of Treatment Upcoming Encounters Date Type Department Care Team (Late st Contact Info) Description 11/18/2024 8:[address] [facility] Pelvic Medicine and Reconstructive Surgery - Medical Office Building [facility] [address] [place] [address] Julia Terrell PA-C 792 [facility] Medical Office Building, [address] [place] [phone] 11/25/2024 8:00 EST Rehab Therapy Visit [facility] Rehabilitation Therapy - Medical Office Building [address] [place] [address] Cira Jackson, KEMALT [address] [place] [address] [address] [place] [phone] 12/02/2024 8:00 EST Rehab Therapy Visit [facility] Rehabilitation Therapy - Medical Office Building [address] [place], [place] [address] Cira Jackson DPT [address] [place] [address], [address] [place] [phone] 12/09/2024 8:00 EST Rehab Therapy Visit [facility] Rehabilitation Therapy - Medical Office Building [address] [place] [address] Cira Jackson DPT [address] [place] [address] [address] [place] [phone] 12/16/2024 9:00 EST Rehab Therapy Visit [facility] Rehabilitation Therapy - Medical Office Building [address] [place] [address] Cira Jackson, DPT 792 [facility], [facility], [address] [place] [phone] 12/23/2024 9:00 EST Rehab Therapy Visit [facility] Rehabilitation Therapy - Medical Office Building [address] [place], [place] [address] Cira Jackson DPT 792 [facility], [facility], [address] [place] [phone] documented as of this encounter Visit Diagnoses Not on filedocumented in this encounter Discontinued Medications Medication Sig Discontinue Reason Start Date End Da te lidocaine 5 % (LIDODERM) 5 % patch APPLY 2 PATCH ON THE SKIN ONCE DAILY. MAY WEAR UP TO 12 HOURS 08/02/2023 08/21/2023 documented as of this encounter Care Teams Tool Builder Relationship Specialty Start Date End Date Ariana Dill DNP [address] [place] [address] PCP - General 08/07/23 Rach Waddell MD 111 [facility], [facility], [address] [place] [phone] Therapeutic Activities Services Worker Obstetrics and Gynecology 05/10/23 documented as of this encounter
--- OUTSIDE RECORDS SUMMARY | 2024-11-10 02:15 | XMS_ITS | Encounter Summary ---
Author Organization [facility] Address [address] [facility] [place] [address] Care Team Providers Care Special Events Director Name Role Phone Rach Waddell MD Unavailable [phone] Ariana Dill DNP Primary Care Provider [phone] Encounter Details Date Type Department Care Team (Latest Contact Info) Description 01/11/2024 Travel Social History Tobacco Use Types Packs/Day [...] Info) Description 11/18/2024 8:15 EST Office Visit [facility] Pelvic Medicine and Reconstructive Surgery - Medical Office [facility] [address] [place] [address] Julia Terrell PA-C [address] [place] [address] Medical Office [facility], [address] [place] [phone] 11/25/2024 8:00 EST Rehab Therapy Visit [facility] Rehabilitation Therapy - Medical Office [address] [address] Cira Jackson DPT [address] [place] [address], [address] [place] [phone] 12/02/2024 8:00 EST Rehab Therapy Visit [facility] Rehabilitation Therapy - Medical Office Building [address] [place] [address] Cira Jackson DPT [address] [place] [address], [address] [place] [phone] 12/09/2024 8:00 EST Rehab Therapy Visit [facility] Rehabilitation Therapy - Medical Office Building [address] [place] [address] Cira Jackson, DPT [address] [place] [address], [facility], [address] [place] [phone] 12/16/2024 9:00 EST Rehab Therapy Visit [facility] Rehabilitation Therapy - Medical Office Building [address] [place] [address] Cira Jackson, DPT [address] [place] [address], [facility], [address] [place] [phone] 12/23/2024 9:00 EST Rehab Therapy Visit [facility] Rehabilitation [facility] - Medical Office Building [address] [place] [address] Cira Jackson, DPT [address] [place] [address], [facility], [address] [place] [phone] documented as of this encounter Visit Diagnoses Not on filedocumented in this encounter Additional Health Concerns Infection Onset Date Last Indicated Resolved Time R/O COVID 01/11/2024 01/11/2024 01/11/2024 22:3 5 EDT documented as of this encounter Care Teams Special Events Director Relationship Specialty Start Date End Date Ariana Dill DNP [address] [place] [address] PCP - General 08/07/23 Rach Waddell MD [address] [place] [address], [facility] 4 [place] [address] Body Builder Apprentice Obstetrics and Gynecology 05/10/23 documented as of this encounter
--- OUTSIDE RECORDS SUMMARY | 2024-11-10 02:15 | XMS_ITS | Encounter Summary ---
Author Organization [facility] Address [address] [place] [address] Care Team Providers Care Physical Aerodynamicist Name Role Phone Rach Waddell MD Unavailable [phone] Ariana Dill DNP Primary Care Provider [phone] Reason for Referral * Consult (Routine/Next Available) - Closed Specialty Diagnoses / Procedures Referred By Zackary corea Referred To Contact Neurology Diagnoses Muscle hypertonia Spells of trembling Christiano Vila S, DO [address] [facility], [facility] [address] [place] [address] Phone: tel: fax: Tatiana Ferrer, DO [address] [place] [address] Phone: tel: fax: Referral ID Status Reason Start Date Expiration Date V isits Requested Visits Authorized [id number] Closed Specialty Services Required 01/12/2024 1 1 Question Answer Reason for Request: abnormal movements, seen in ED by neuro team, rec'd outpatient f/u Context of referral: New Problem Reason for referral: Consultation only Best descriptor of the patients problem: 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 No Does the patient have history of status epilepticus? No Is the patient currently ? No Has the patient had an electroencephalogram (EEG)? No Has patient had a previous OUTSIDE of [facility] neurology evaluation, neuroimaging (MRI or CT of brain or spine) or electrodiagnostic testing (EMG, NCS, EEG)? No * Office Procedure (Routine/Next Available) - Closed Specialty Diagnoses / Procedures Referred By Contac t Referred To Contact Neurology Diagnoses Muscle hypertonia Procedures EEG Arnaldo Duke MD [address] [place] [phone] Phone: tel: fax: [facility] Neurophysiology [facility] ([facility]) [address] [place] [id number] Phone: tel: fax: Referral ID Status Reason Start Date Expiration Date V isits Requested Visits Authorized [id number] Closed Specialty Services Required 01/12/2024 1 1 Reason for Visit * Reason Comments Tremors BIBEMS from home for ongoing shaking, tremors, weakness throughout her body. Pt was seen in ED last night for same, repleted with mag/potassium and medicated for anxiety. Pt reports symptoms have worsening and is concerned for seizure-like activity. Pt arrives AOX4, muscle cramping/tension, diaphoresis. BG WNL, vitally stable. Hx Disc injury with incontinence Encounter Details Date Type Department Care Team (Late st Contact Info) Description 01/11/2024 18:25 EDT - 01/12/2024 7:22 EDT Emergency [facility] Emergency Department - [address] [id number] Cheri Muniz MD [address] [phone] Christiano Vila DO [address] [phone] Muscle hypertonia (Primary Dx); Spells of trembling Discharge Disposition: Home or Self Care Social [...] Sign Reading Time Taken Comments Blood Pressure 111/74 01/12/2024 0700 EDT Pulse 89 01/12/2024 0700 EDT Temperature 37.5 ??C (99.5 ??F) 01/12/2024 0700 EDT Respiratory Rate 16 01/12/2024 0700 EDT Oxygen Saturation 98% 01/12/2024 0700 EDT Inhaled Oxygen Concentration - - Weight [...] Lois Vega RN documented in this encounter Discharge Instructions * Discharge Instructions* Christiano Vila DO - 01/12/2024 6:53 EDT Please follow-up with a neurologist like we discussed, you take your prescribed Klonopin as needed for anxiety or increased muscle spasms. * Attachments The following attachments cannot be sent through Care Everywhere. * Back Spasm (Taiwanese) documented in this encounter Medications at Time [...] Means Destination Comment s Home or Self Senior Living documented in this encounter Consult Notes * Tatiana Ferrer DO - 01/11/2024 2147 EDT Neurology Consult Note Admit Date: 01/11/2024 Date of Service: 01/11/2024 Requesting Team: ED Reason for Consult: Constellation of neurologic symptoms HPI: Mine Lynn is a 33-year-old female with PMHx spastic pelvic floor syndrome, chronic pelvic pain s/p pelvic fracture in 2016 during childbirth, PTSD, and anxiety who has had multiple ED presentations for a constellation of neurologic symptoms. Neurology was consulted for this. The patient is accompanied by her parents this evening. She had been having a constellation of symptoms accompanied by episodes of shaking and she was in the ED yesterday for the same symptoms. Sincelast Monday she had been feeling flushed and alternating hot/cold. She also describes seizure-likesymptoms including disorientation, confusion, and trembling of her legs and hands associated with episodes of urinary incontinence that can happen out of nowhere while she is doing nothing in particular. The mother states the patient started hyperventilating when these symptoms came on today and the shaking lasted from 3 pm until 9 pm, approximately 6 hours. With the episode today, both of her hands were flexed and the wrist and fingers and she had a hard time extending them. She feels like she can't rangeland management specialist with her hands, can't hold things. 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 She lives with her 2 kids and feels safe at home. She has beenunder stress lately, recently broke up with the father of her children and partner of 10 years. Sheis now a single mother. She takes clonazepam PRN, hydrocodone for pain, trazodone sometimes, ibuprofen for herniated discs.She sees a psychiatrist and a PCP. She states she is on cipro for a kidney infection. She had a positive FOX with referral to rheumatology. Seizure Risk Factor Review: Complications during : placenta previa, lots of bleeding Premature delivery or term: premature, had to be in incubator 1 month Complications during delivery: Development: normal or delayed in school/sports? 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 infections: no Prior neurosurgery: no Family history of epilepsy: no Drug use: no, last time she used was Monday, used to smoke marijuana, was using gummies heavily for herniated discs Alcohol use: no Hx stroke: no Seizure semiology review: Aura: hints that episodes are about to occur include flushing in face, ringing in ears Oral automatisms: Staring spells: LOC, lapses in memory, unexplained falls or changes in location: yes, will feel like she gets disoriented and not remember things Nocturnal enuresis, unexpticularlained blood in mouth: no Abnormal uncontrolled movements or abnormal sensory losses: will get tingling in her hands and right leg Frequent meño vu: yes, can happen once a week Gastric uprising sensation: no Olfactory/gustatory hallucinations: no Types of movements: high velocity, low amplitude shaking of arms and legs Response to voice during event: yes, states she has always been responsive but can get confused during it Postictal confusion, sleepiness, weakness, word-finding difficulties: yes, a couple minutes Eye deviation: no but eyes can sometimes roll back Cyanosis: no PMH PSH Past Medical History: Diagnosis Date Anxiety, generalized Ativan intermittently during Pelvic floor dysfunction Past Surgical History: Procedure Laterality Date OTHER SURGICAL HISTORY 2008 Excision of periurethral cysts at [facility] Social History Family History Social History Tobacco Use Smoking status: Never Smokeless tobacco: Never Substance Use Topics Alcohol use: No Comment: social Family History Problem Relation Age of Onset Asthma Mother Hypertension Father Medications No current facility-administered medications for this encounter. Current Outpatient Medications Medication acetaminophen (TYLENOL) 500 mg tablet albuterol 90 mcg/actuation inhaler HYDROcodone-acetaminophen (NORCO) 5-325 mg tablet HYDROcodone-acetaminophen (NORCO) 5-325 mg tablet ibuprofen (MOTRIN) 200 mg tablet inhalational spacing device (BREATHERITE MDI SPACER) lidocaine 5 % (LIDODERM) 5 % patch sertraline (ZOLOFT) 25 mg tablet Review of Systems: A ten point review of systems was performed and was negative except for pertinent positives noted in the HPI Objective/Physical Exam: Vital Signs: Temp: 37.8 ??C (100.1 ??F) Resp: 29 BP: 94/75 SpO2: 97 % Exam: General: Adult female, awake, alert, no signs of acute distress HEENT: Anicteric, EOMI, PERR Resp: Breathing comfortably on room air CVS: RRR. : No doan present Extremities: No peripheral edema, no cyanosis, no erythema, well perfused. Neurological Exam: Mental Status & Language Awake and alert, oriented to person, place and time. Normal comprehension and attention. Cranial Nerves II: Visual martino full to confrontation. Pupils equal and reactive. III, IV, : EOMI with smooth pursuit. Conjugate gaze. V: Trigeminal sensation intact b/l VII: Symmetric facial strength at rest and with activation VIII: Hearing intact to finger rub IX, X: No dysarthria XI: Normal strength XII: Tongue midline Motor Mild paratonia bilateral upper extremities. Normal bulk. No abnormal motor movements. Repetitive finger tapping, hand grasping are somewhat bradykinetic. Finger-nose and heel smith reveal no dyssynergia or dysmetria. Upper Extremity Strength Shoulder abd (C5) Elbow flexion (C5,6) Elbow ext (C7) Wrist extension (C7) Right *4+/5 5/5 5/5 5/5 Left 5/5 5/5 5/5 5/5 Lower Extremity Strength Hip flexion (L2,3) Knee extension (L3,4) Ankle DF (L4,5) Ankle PF (S1,2) Right *4+/5 *4+/5 *4/5 5/5 Left 5/5 5/5 5/5 5/5 *With some giveway weakness but is able to give full power in bursts Reflexes DTR Right Left Biceps (C5-6) 3 with spread 3 with spread BR (C5-6) 3+ 3+ Patellar (L3-4) 3+ with spread 3+ with spread Achilles (S1-2) 2+ 2+ Plantar flexion flexion No ankle clonus Flaherty's sign negative Pectoral spread present, crossed adductor reflexes present Sensation Light touch: intact and equal throughout Cerebellar/Movement Function No dysmetria on FNF. No truncal ataxia. Gait Normal gait speed/base adequate, normal arm swing Some wobbling with tandem gait Romberg negative Data Review: CBC: Recent Labs 01/10/24230901/11/24 1841 01/11/24 2116 WBC 6.45 5.93 4.56 RBC 4.58 4.30 4.07 HGB 13.9 13.2 12.5 HCT 39.8 36.7 35.1 MCV 87 85 86 MCH 30.3 30.7 30.7 MCHC 34.9 36.0* 35.6 PLT 301 294 285 NEUTROABS 3.82 3.97 3.05 BMP: Recent Labs 01/10/24230901/11/24 1841 NA 140 138 K 3.3* 3.6 CL 107 108 CO2 18* 18* BUN 8* 9* CREATININE 0.55 0.52 CALCIUM 9.7 9.7 MG 1.9 2.0 LABALBU 5.2* 4.7 LFT: Recent Labs 01/10/24 2310 01/11/24 1841 TBIL 1.8* 1.4* ALKPHOS 54 47 AST 36 32 ALT 15 16 LIPASE -- 94 Cardiac Markers: Recent Labs 01/10/24 2310 01/11/24 1841 CK 54 -- TROPONINI -- <0.034 Urine Analysis: Recent Labs 01/11/24 0022 COLOR Yellow CLARITYU Cloudy* GLUCOSEU Negative BILIRUBINUR Negative KETONES 2+* LABSPEC 1.007 PHUR 5.5 PROTEINUA Negative UROBILINOGEN 0.2 NITRITE Negative LEUKESTER Negative WBCU 0 - 3 RBCU 0 - 2 BACTERIA None Seen LABCAST <=10 Imaging: US PELVIS TRANSABDOMINAL AND TRANSVAGINAL COMPLETE WITH LIMITED DUPLEX Result Date: 01/11/2024 Findings/Impression: Right ovary: Arterial and venous Doppler waveforms and color flow are present in the right ovary. Left ovary: Arterial and venous Doppler waveforms and color flow are present in the left ovary. IMPRESSION: normal duplex GRAYSCALE: Technique: Grayscale ultrasound of the pelvis was performed, first transabdominally, and then transvaginally. Indication for Grayscale: RLQ pain; Findings: LMP: Approximately 2 weeks prior. Negative urine test documented. Uterus: The anteverted uterus measures 8.3 x 4.4 x 5.3 cm in size. There is no focal myometrial abnormality. Endometrium: The hyperechoic endometrium measures 1.3 cm in double endometrial stripe thickness, which is within normal limits. No focal thickening. Right ovary: The right ovary measures 4.4 x 2.1 x 3.8 cm in size, for an estimated right ovarian volume of 19 mL. There is a right ovarian cyst measuring 2.8x 1.8 x 2.0 cm, internally this contains retractile clot and lacelike internal echoes Left ovary: The left ovary measures 2.1 x 1.6 x 2.1 cm in size, for an estimated left ovarian volume of 3.9 mL. No concerning lesion Cervix: Nabothian cysts are present Free fluid: There is a small amount of simple free fluid in the pelvis. Other Findings: None. IMPRESSION: 1. There is a 2.8 cm hemorrhagic rightovarian cyst. Lesion in the ovary may serve as a lead point for ovarian torsion. Despite the presence of flow in the ovary, if there is clinical concern for ovarian torsion, gynecology consultation is recommended. 2. Small volume free fluid in the pelvis. I have personally reviewed the images and the above interpretation and agree with the findings. [id number] MR LUMBAR SPINE WO CONTRAST 09/17/2023 IMPRESSION Large central/right paracentral disc extrusion at L5-S1 abuts the traversing right S1 nerve root within the subarticular recess with mild spinal canal stenosis. Additional mild left neuroforaminal narrowing at this level. No other significant degenerative changes in the lumbar spine. MR THORACIC SPINE WO CONTRAST 11/14/2023 IMPRESSION 1. No signal abnormality within the spinal cord. 2. Degenerative disc disease with protrusions and bulges result in flattening of the ventral spinalcord at the T5-6, T6-7, T7-8, and T8-9 levels, but there is no significant spinal canal stenosis. Assessment: Mine Lynn is a 33-year-old female with PMHx spastic pelvic floor syndrome, chronic pelvic pain s/p pelvic fracture in 2016 during childbirth, PTSD, and anxiety who has had multiple ED presentations for a constellation of neurologic symptoms. Her exam is notable for some weakness on exam with moderate functional overlay. She does have bilateral mild paratonia and diffuse hyperreflexia, and in the setting of degenerative disc disease history, I would be interested in obtaining imaging of her C-spine to evaluate for possible cord impingement. Given these episodes of shaking with urinary incontinence, it would also be reasonable to get an outpatient EEG to evaluate for possible seizure disorder, although based on the description of events I think this is less likely. She has not had head imaging in the past, but it may be worthwhile to obtain this imaging now to evaluate for organic cause of symptoms given repeated ED visits and self-reported symptoms of brain fog, memory loss. If imaging is reassuring, she can get an outpatient routine EEG. She has neurology follow up scheduled [facility] Dr. Gloria Torres on 01/23. I spoke with the patient and family at bedside and relayed my concerns that we will not likely have a satisfying answer for her symptoms this evening, however I did reassure them that her symptoms do not seem overly concerning for a seizure disorder at this time and her symptoms do not appear to be imminently life threatening. They voiced understanding. Recommendations: - MR head wo - MR C-spine wo - If imaging reassuring, please order outpatient routine EEG - Keep appointment with outpatient neurologist on 01/23 Patient discussed with neurology attending, MD Tatiana Kinsey DO Neurology PGY-2 Pgr [id number] / [id number] after 7 PM 01/12/24 0:40 Cosigned by Jonnathan Putnam MD at 01/12/2024 22:11 EDT documented in this encounter ED Notes * Patricia Tracy RN - 01/12/2024 0635 EDT MD at bedside * Patricia Trayc RN - 01/12/2024 0326 EDT Family at bedside, pt resting comfortably * Sally Lilly RN - 01/12/2024 0302 EDT Report given to LAZARA Gomez * Justine Haywood RN - 01/12/2024 0014 EDT VORB per MD Vila for 1mg Ativan IV for MRI. * Justine Haywood RN - 01/11/2024 2239 EDT Neurology resident at bedside for assessment. * Sally Lilly RN - 01/11/2024 2141 EDT Pt sleeping at this time. * Justine Haywood RN - 01/11/2024 1933 EDT MD Duke at bedside for assessment * Sally Lilly RN - 01/11/2024 1919 EDT PVR bladder scan shows 250mL * Justine Haywood RN - 01/11/2024 1856 EDT Chief Complaint Patient presents with Tremors BIBEMS from home for ongoing shaking, tremors, weakness throughout her body. Pt was seen in ED lastnight for same, repleted with mag/potassium and medicated for anxiety. Pt reports symptoms have worsening and is concerned for seizure-like activity. Pt arrives AOX4, muscle cramping/tension, diaphoresis. BG WNL, vitally stable. Hx Disc injury with incontinence BP 119/69 Temp 37.8 ??C (100.1 ??F) (Oral) Resp 18 SpO2 99% Pt hyperventilating on arrival, clamped hands, increased work of breathing, diaphoresis. Lights dimmed, cold compress applied, mom at bedside for support. * Arnaldo Duke MD - 01/11/2024 1825 EDT Emergency Department Visit This documentation is recorded by Phyllis Madrid acting as Scribe under the direction and presenceof Cheri Muniz MD and Arnaldo Duke MD. Cheri Muniz MD and Arnaldo Duke MD: I personally performed the services recorded by the scribe in my presence. I confirm the scribe's documentation has been reviewed by me to accurately and completely record my work, treatment, procedures, and medical decision making. Medical Decision Making 33-year-old female with history of anxiety, urge incontinence presenting for various somatic complaints including some increasing gait instability; spells of panic associated with hyperventilation, perioral tingling, and hand cramping; increasing episodes of her baseline incontinence. Seen yesterday in ED, symptoms improved with benzodiazepines and supportive care. Ongoing symptoms throughout theday today. Accompanied by parents, who expressed significant concern over patient's symptoms. Normal vitals. Afebrile. Exam with some increased muscle tone and fine amplitude tremor of lower extremities without spasticity. Normal mentation. Labs grossly unremarkable including normal electrolytes, negative troponin, essentially normal NT proBNP. Serum bicarb 18 but pH 7.4. pCO2 35. Possible mild metabolic alkalosis in response to respiratory alkalosis. Given droperidol, lorazepam, diphenhydramine with improvement in anxiety and tremor. However some ongoing increased tone. Neurology consulted and evaluated patient. They recommend MRI head and C-spine to assess for possible myelopathy or other structural lesion. Signed out pending MRI and neurology evaluation. Relevant Data as of 01/12/24 0004 [facility] Jan 11, 2024 1904 Presented to ED yesterday for episodes of leg shaking, cold sweats, ringing in ears. Given lorazepam and electrolytes. Discharged. [GLENN] 2030 EKG independently interpreted by me: Rate 84, sinus rhythm, normal axis, QTc 424, no acute ST elevations or depressions [GLENN] 230 Mine comes in with many months of symptoms that are intermittent but progressive over the past week such that this is her second ED visit this week. Her symptoms are unusual and include carpal spasms that are persistent despite resolution of her [LM] Relevant Data User Index [GLENN] Arnaldo Duke MD [LM] Cheri Muniz MD Medical Decision Making Problems Addressed: Muscle hypertonia: complicated acute illness or injury Amount and/or Complexity of Data Reviewed Labs: ordered. Radiology: ordered. Risk Prescription drug management. Final diagnoses: Muscle hypertonia Disposition: No disposition on file Chief complaint: tremors HPI Mine Lynn is a 33 y.o. female with a history of spastic pelvic floor syndrome, chronic pelvicpain, and anxiety who presents to the ED via EMS for full body tremors. Patient was seen in the ED last night for similar symptoms, and received magnesium, ativan, potassium, and fluids. She reports her symptoms are currently worse, and lasting longer than previously. This morning after discharge from the ED, she was initially feeling well. She explains that around 1500 today, she was eating a salad, felt disoriented, clammy, and was experiencing ringing in her ears. She had an episode of urinary incontinence, then began shaking. Of note she has some baseline urinary incontinence. She endorses tingling in her hands and around her mouth. She reports he has been hyperventilating today, and feels like she can't calm down. She denies chest pain but endorses shortness of breath. She endorsesabdominal pain that comes and goes, and was diagnosed with an ovarian cyst last night. She denies any rhinorrhea or sore throat. She notes some decreased rangeland management specialist strength. She has been drinking Pedialyte today. She is currently on cipro for a UTI diagnosed on 01/04. Patient's family at bedside express concern they are not finding answers after multiple different visits. She has a rheumatology appointment in 2024. History was provided by: patient, mother and father Records reviewed include: ED note from last night. She presented for episodes of leg shaking, cold sweats, ringing in ears. Given lorazepam and electrolytes. Discharged Patient's pertinent PMH, FH, SH were reviewed and edited as necessary. Nursing notes reviewed. A medical screening exam was performed. Physical Exam BP 106/70 Pulse 81 Temp 36.8 ??C (98.2 ??F) (Oral) Resp 29 SpO2 99% Physical Exam Tearful, anxious. Mild hyperventilation. CTAB. RRR. Soft, nontender abdomen. No obvious rashes. Increased muscle tone in upper and lower extremities. Occasional fine amplitude tremor of bilateral lower extremities. Hands held in finger flexion. No obvious cranial nerve deficits. Alert and oriented. Procedures Procedures Cosigned by Cheri Muniz MD at 01/13/2024 22:48 EDT Associated attestation - Cheri Muniz MD - 01/13/2024 9988 EDT I, Cheri Muniz MD, performed a history and exam of this patient and discussed the case with the resident. I have reviewed and edited this note, and the documentation is consistent with my findings, assessment and plan. I fully participated in the medical decision making. Mine has progressive symptoms which seem like conversion but the patient has had an inpatient psychiatric admission without improvement and is scheduled for outpatient neurologist but has had multiple ED visits for worsening symptoms. Given that she has a constellation of symptoms and conversion disorder is a diagnosis of exclusion, will consult neurology as she is unsteady on his feet has urinary incontinence and did not have improvement despite supportive treatment. * Christiano Vila DO - 01/11/2024 3485 EDT ISurya, am scribing for Christiano Vila DO while he is personally performing the service. Surya Corbett 01/11/2024 23:43 Mine Lynn is a 33 y.o. female with a history of spastic pelvic floor syndrome, chronic pelvicpain, and anxiety who presents to the ED for full body tremors, similar to her presentation last night in the ED but more severe. Patient also describes an episode of clamminess, disorientation, and ringing in her ears, as well as an episode of urinary incontinence and shaking (of note, patient does have some urinary incontinence at baseline). Patient also reports some intermittent abdominal pain, having been diagnosed with an ovarian cyst last night. Care and work-up prior to sign out includes nondiagnostic EKG, negative chest XR, and labs. Neurology was consulted, who recommended MR head and MR C-spine. Patient was administered IV LR, IV droperidol, IV Ativan, and IV Benadryl. I assumed care of patient from Dr. Duke and Dr. Muniz with MR head and MR C- spine pending. After I assumed care the patient had: MR head negative. MR cervical spine significant only for neural foraminal stenosis. 0637 - Met with the patient. Discussed reassuring MR head and MR cervical spine. Discussed recommendations for outpatient spot EEG and follow up with neurology. Patient was amenable to discharge at this time. Final diagnoses: Muscle hypertonia Spells of trembling This documentation is recorded by Surya Corbett acting as Scribe under the direction and presence of Christiano Vila DO. Christiano Vila DO: I personally performed the services recorded by the scribe in my presence. I confirm the scribe's documentation has been reviewed by me to accurately and completely record my work,treatment, procedures, and medical decision making. Note has been documented by Surya Corbett on 01/11/2024 documented in this encounter Plan of Treatment Upcoming Encounters Date Type Department Care Team (Late st Contact Info) Description 11/18/2024 8:15 EST [facility] Visit [facility] [facility] - Medical Office Building [facility] [address] [place] [address] [id number] Julia Terrell PA-C [address] [place] [address] Medical Office Building, [address] [place] [phone] 11/25/2024 8:00 EST Rehab Therapy Visit [facility] Rehabilitation Therapy - Medical Office Building [address] [place] [address] [id number] Cira Jackson DPT [address] [place] [address], [address] [place] [phone] 12/02/2024 8:00 EST Rehab Therapy Visit [facility] Rehabilitation Therapy - Medical Office Building [address] [place] [address] Cira Jackson DPT [address] [place] [address], [address] [place] [phone] 12/09/2024 8:00 EST Rehab Therapy Visit [facility] Rehabilitation Therapy - Medical Office Building [address] [place] [address] Cira Jackson, ROBERTO [address] [place] [address], [place], [address] [place] [phone] 12/16/2024 9:00 EST Rehab Therapy Visit [facility] Rehabilitation Therapy - Medical Office Building [address] [place] [address] Cira Jackson DPT [address] [facility], [facility] [place], [address] [place] [phone] 12/23/2024 9:00 EST Rehab Therapy Visit [facility] Rehabilitation Therapy - Medical Office Building [address] [place] [address] Cira Jackson DPT [address] [place] [address], [facility] [place], [address] [place] [phone] Scheduled Orders Name Type Priority Associated Diagnoses Orde r Schedule EEG Neurology Routine Consult Muscle hypertonia Expected: 01/19/2024 (Approximate) Scheduled Referrals Name Type Priority Associated Diagnoses Order Schedule AMB CONS/FOLLOW UP EPILEPSY Outpatient Referral Routine/Next Available Muscle hypertonia Spells of trembling Expected: 01/19/2024 (Approximate), Expires: 01/11/2025 documented as of this encounter Procedures Procedure Name Priority Date/Time Associated Diagnosis Comments ECG REPORT - SCANNED 01/15/2024 6:26 EDT MR CERVICAL SPINE W WO CONTRAST STAT 01/12/2024 2:48 EDT MR HEAD W WO CONTRAST STAT 01/12/2024 2:48 EDT BLOOD GASES, VENOUS STAT 01/11/2024 2 1:59 EDT XR CHEST PORTABLE 1 VIEW STAT 01/11/2024 21:25 EDT UA SEDIMENT + REFLEX TO CULTURE STAT 01/11/2024 21:16 EDT SARS COV2, FLU A/B, RSV DETECT BY PCR STAT 01/11/2024 21:16 EDT COMPLETE BLOOD COUNT AND DIFFERENTIAL STAT 01/11/2024 21:16 EDT POCT GLUCOSE, INTERFACED Routine 01/11/2024 19:07 EDT HOLD SST Routine 01/11/2024 18:41 EDT HOLD LAVENDER TOP Routine 01/11/2024 18: 41 EDT HOLD GREEN TOP Routine 01/11/2024 18:41 EDT HOLD BLUE TOP Routine 01/11/2024 18:41 EDT EXTRA BLOOD DRAW (RAINBOW) Routine 01/11/2024 18:41 EDT TROPONIN I STAT Add-on 01/11/2024 18:41 EDT COMPLETE BLOOD COUNT AND DIFFERENTIAL STAT Add-on 01/11/2024 18:41 EDT QUANT BETA HCG, STAT Add-on 01/11/2024 18:41 EDT NT PRO BNP STAT Add-on 01/11/2024 18:41 EDT MAGNESIUM STAT Add-on 01/11/2024 18:41 EDT LIPASE STAT Add-on 01/11/2024 18:41 EDT HEPATIC FUNCTION PANEL (ALB,ALK PHOS,ALT,AST,DBIL,TO T ERROL,TOT PROT) STAT Add-on 01/11/2024 18:41 EDT BASIC METABOLIC PANEL (BMP) STAT Add-on 01/11/2024 18:41 EDT EKG 12-LEAD STAT 01/11/2024 18:35 EDT documented in this encounter Results * ECG REPORT - SCANNED (01/15/2024 6:26 EDT) 01/15/2024 6:26 EDT us Scan 2 Relations Mgr PROCEDURE/MINOR SURGICAL OR DERABLES Final Result * MR CERVICAL SPINE W WO CONTRAST (01/12/2024 2:48 EDT) Anatomical Region Laterality Modality Spine Magnetic Resonan ce 01/12/2024 10:2 4 EDT Impressions 01/12/2024 10:24 EDT No cervical cord signal abnormality or abnormal cervical cord enhancement. Degenerative changes, without high-grade spinal canal stenosis. Varying degrees of neural foraminal stenosis detailed above, moderate in severity on the right at C4-C5 and both sides at C5-C6. I have personally reviewed the images and the above interpretation and agree with the findings. [id number] Narrative 01/12/2024 10:24 EDT EXAM: MRI CERVICAL SPINE WO/W CONTRAST HISTORY: Paratonia, hyperreflexia, shaking spells TECHNIQUE: MRI of the cervical spine without and with intravenous gadolinium contrast. Structured report code: [id number] COMPARISON: None. FINDINGS: Evaluation is made difficult on several sequences by motion artifacts. SURGICAL CHANGES: None. ALIGNMENT: Straightening of lordosis with slight kyphosis centered at C5-C6. No significant spondylolisthesis. BONES: No significant vertebral body height loss. No concerning lesions. 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 INTERVERTEBRAL DISCS: Disc degeneration, detailed below. No evidence of discitis. SPINAL CANAL AND SPINAL CORD: No abnormal cord signal intensity. No fluid collections. No abnormal enhancement. VISIBLE EXTRASPINAL SOFT TISSUES: Unremarkable. EVALUATION BY LEVEL: C1-C2, C2-C3: No significant spinal canal stenosis. No significant neural foraminal stenosis at C2-C3. C3-C4: Bilateral uncovertebral hypertrophy, worse on the right. Mild degenerative facet arthropathy on the right. Mild neural foraminal stenosis on the right. No significant neural foraminal stenosis on the left. No significant spinal canal stenosis. C4-C5: Bilateral uncovertebral hypertrophy, worse on the right. Mild degenerative facet arthropathy on the right. Moderate neural foraminal stenosis on the right. No significant neural foraminal stenosis on the left. Flattening of the ventral spinal canal and slight ventral cord flattening with no more than mild spinal canal stenosis. C5-C6: Disc osteophyte complex, bilateral uncovertebral hypertrophy, mild bilateral degenerative facet arthropathy. Moderate bilateral neural foraminal stenosis, worse on the right. Mild spinal canal stenosis with ventral cord flattening. C6-C7: Slight bilateral uncovertebral hypertrophy. Mild degenerative facet arthropathy on the right. No significant spinal canal or neural foraminal stenosis. C7-T1, T1-T2: Mild degenerative facet arthropathy. No significant spinal canal or neural foraminal stenosis. Procedure Note Christiano Dickerson MD - 01/12/2024 EXAM: MRI CERVICAL SPINE WO/W CONTRAST HISTORY: Paratonia, hyperreflexia, shaking spells TECHNIQUE: MRI of the cervical spine without and with intravenousgadolinium contrast. Structured report code: [email or web address] COMPARISON: None. FINDINGS: Evaluation is made difficult on several sequences by motion artifacts. SURGICAL CHANGES: None. ALIGNMENT: Straightening of lordosis with slight kyphosis centered at C5-C6. Nosignificant spondylolisthesis. BONES: No significant vertebral body height loss. No concerning lesions. A smallslow flow vascular malformation (a.k.a. hemangioma) is present in the [id number] body. INTERVERTEBRAL DISCS: Disc degeneration, detailed below. No evidence of discitis. SPINAL CANAL AND SPINAL CORD: No abnormal cord signal intensity. No fluid collections. No abnormalenhancement. VISIBLE EXTRASPINAL SOFT TISSUES: Unremarkable. EVALUATION BY LEVEL: C1-C2, C2-C3: No significant spinal canal stenosis. No significant neuralforaminal stenosis at C2-C3. C3-C4: Bilateral uncovertebral hypertrophy, worse on the right. Milddegenerative facet arthropathy on the right. Mild neural foraminalstenosis on the right. No significant neural foraminal stenosis on theleft. No significant spinal canal stenosis. C4-C5: Bilateral uncovertebral hypertrophy, worse on the right. Milddegenerative facet arthropathy on the right. Moderate neural foraminalstenosis on the right. No significant neural foraminal stenosis on theleft. Flattening of the ventral spinal canal and slight ventral cordflattening with no more than mild spinal canal stenosis. C5-C6: Disc osteophyte complex, bilateral uncovertebral hypertrophy, mildbilateral degenerative facet arthropathy. Moderate bilateral neuralforaminal stenosis, worse on the right. Mild spinal canal stenosis withventral cord flattening. C6-C7: Slight bilateral uncovertebral hypertrophy. Mild degenerative facetarthropathy on the right. No significant spinal canal or neural foraminalstenosis. C7-T1, T1-T2: Mild degenerative facet arthropathy. No significant spinalcanal or neural foraminal stenosis. IMPRESSION No cervical cord signal abnormality or abnormal cervical cordenhancement. Degenerative changes, without high-grade spinal canal stenosis. Varyingdegrees of neural foraminal stenosis detailed above, moderate in severityon the right at C4-C5 and both sides at C5-C6. I have personally reviewed the images and the above interpretation andagree with the findings. [id number] us Arnaldo Duke MD IM MRI ORDERABLES Final Result * MR HEAD W WO CONTRAST (01/12/2024 2:48 EDT) Anatomical Region Laterality Modality Head Magnetic Resonan ce 01/12/2024 8:24 EDT Impressions 01/12/2024 8:24 EDT No evident acute or otherwise concerning intracranial abnormality. I have personally reviewed the images and the above interpretation and agree with the findings. [id number] Narrative 01/12/2024 8:24 EDT EXAM: MRI HEAD WO/W CONTRAST HISTORY: Paratonia, hyperreflexia, shaking spells; TECHNIQUE: MRI head without and with intravenous gadolinium contrast. Structured report code: [id number] COMPARISON: None. FINDINGS: PARENCHYMA: No evidence of infarction. No parenchymal hemorrhage. No mass or shift of structures across the midline. ??No abnormal enhancement. EXTRA-AXIAL SPACES: No acute extra-axial hemorrhage. No extra-axial collection. No extra-axial mass. VENTRICLES: No hydrocephalus. No recent intraventricular hemorrhage VESSELS: The flow voids and intravascular enhancement are normal. BONES: There is no suspicious osseous lesion or acute fracture. ORBITS: No significant abnormality. PARANASAL SINUSES/MASTOID AIR CELLS: Predominantly clear. EXTRACRANIAL SOFT TISSUES: No significant abnormality. Procedure Note Nilson Ignram MD - 01/12/2024 EXAM: MRI HEAD WO/W CONTRAST HISTORY: Paratonia, hyperreflexia, shaking spells; TECHNIQUE: MRI head without and with intravenous gadolinium contrast.Structured report code: [id number] COMPARISON: None. FINDINGS: PARENCHYMA: No evidence of infarction. No parenchymal hemorrhage. No mass or shift ofstructures across the midline. No abnormal enhancement. EXTRA-AXIAL SPACES: No acute extra-axial hemorrhage. No extra-axial collection. No extra-axialmass. VENTRICLES: No hydrocephalus. No recent intraventricular hemorrhage VESSELS: The flow voids and intravascular enhancement are normal. BONES: There is no suspicious osseous lesion or acute fracture. ORBITS: No significant abnormality. PARANASAL SINUSES/MASTOID AIR CELLS: Predominantly clear. EXTRACRANIAL SOFT TISSUES: No significant abnormality. IMPRESSION No evident acute or otherwise concerning intracranial abnormality. I have personally reviewed the images and the above interpretation andagree with the findings. [id number] Arnaldo Duke MD [facility] MRI ORDERABLES Final Result * (ABNORMAL) BLOOD GASES, VENOUS (01/11/2024 21:59 EDT) pH, Venous 7.40 7.31 - 7.41 01/11/2024 22:15 [facility] pCO2, Venous 35(L) 41 - 51 mmHg 01/11/2024 22:15 [facility] pO2, Venous 44 30 - 50 mmHg 01/11/2024 22:15 [facility] tCO2, Venous 22 22 - 28 mmol/L 01/11/2024 22:15 [facility] Temperature 37.0 C 01/11/2024 22:15 [facility] Comment:Body Temp not noted. 37 degrees assumed. O2 Saturation, Venous 81 60 - 85 % 01/11/2024 22:15 [facility] Oxygen Therapy (FIO2) 01/11/2024 22:15 EDT [facility] Comment:Oxygen therapy not n oted in system. Base Level -3.00(L) -2.00 - 3.00 mmol/L 01/11/2024 22:15 EDT [facility] Blood VENOUS BLOOD / Unknown Venipuncture / Unknown 01/11/2024 21:59 EDT 01/11/2024 22:13 EDT us Arnaldo Duke MD CHEMISTRY & BLOOD GAS ORDERABLES Final Result [facility] [address] [place] [address] * XR CHEST PORTABLE 1 VIEW (01/11/2024 21:25 EDT) Anatomical Region Laterality Modality Computed Radiogr aphy 01/12/2024 9:07 EDT Impressions 01/12/2024 9:07 EDT No acute abnormality. I have personally reviewed the images and the above interpretation and agree with the findings. [id number] Narrative 01/12/2024 9:07 EDT XR CHEST PORTABLE 1 VIEW ??01/11/2024 9:18 PM Clinical History/comments: sob, cp; Comparison: None. Technique: Single portable AP view of the chest. Findings: Lines/tubes/devices: None. Lungs: The lungs are clear and the pulm vasculature is normal. Pleura: No visible pleural abnormalities. Cardiac and mediastinal contours: Normal cardiomediastinal silhouette. Soft tissues and extrathoracic findings: There is no significant abnormality. Bones: Rightward curvature of the spine is likely in part positional. Procedure Note Sanjeev Cano MD - 01/12/2024 XR CHEST PORTABLE 1 VIEW 01/11/2024 9:18 PM Clinical History/comments: sob, cp; Comparison: None. Technique: Single portable AP view of the chest. Findings: Lines/tubes/devices: None. Lungs: The lungs are clear and the pulm vasculature is normal. Pleura: No visible pleural abnormalities. Cardiac and mediastinal contours: Normal cardiomediastinal silhouette. Soft tissues and extrathoracic findings: There is no significantabnormality. Bones: Rightward curvature of the spine is likely in part positional. IMPRESSION No acute abnormality. I have personally reviewed the images and the above interpretation andagree with the findings. [id number] us Arnaldo Duke MD IMG DIAGNOSTIC IMAGING ORDERABLE S Final Result * UA SEDIMENT + REFLEX TO CULTURE (01/11/2024 21:16 EDT) Urine RBC Count, Auto 0 - 2 0 - 2 Cells/HPF 01/11/2024 21:53 EDT [facility] Urine WBC Count, Auto 0 - 3 0 - 3 Cells/HPF 01/11/2024 21:53 EDT [facility] Urine Squamous Count, Auto None Seen None Seen Cells/HPF 01/11/2024 21:53 EDT [facility] Urine Hyaline Cast Count, Auto <=10 <=10 Casts/LPF 01/11/2024 21:53 EDT [facility] Urine Bacteria Count, Auto None Seen None Seen Bacteria/H PF 01/11/2024 21:53 EDT [facility] Urine URINE SPECIMEN OBTAINED BY CLEAN CATCH PROCEDURE / Unknown Urine Collect / Unknown 01/11/2024 21:16 EDT 01/11/2024 21:35 EDT Narrative [facility] - 01/11/2024 21:53 EDT NOTE: Reflex to Urine Culture test is not indicated based on Urine Sediment Analysis results. Urine Sediment Analysis results are unreliable on urines that are unrefrigerated for >2 hrs or refrigerated >8 hrs. us Cheri Muniz MD URINALYSIS ORDERABLES Final R esult [facility] [address] [place] [address] * SARS COV2, FLU A/B, RSV DETECT BY PCR (01/11/2024 21:16 EDT) FLU A RNA Result (FLARES) Negative Negative 01/11/2024 22:35 EDT [facility] FLU B RNA Result (FLBRES) Negative Negative 01/11/2024 22:35 EDT [facility] RSV RNA Result (RSVRES) Negative Negative 01/11/2024 22:35 EDT [facility] COVID-19 rt-PCR Result Negative Negative 01/11/2024 22:35 EDT [facility] Comment: Negative results do not preclude 2019-nCoV infection and should not be used as the sole basis for treatment or other patient management decisions. Negative results must be combined with clinical observations, patient history, and epidemiological information. Performed on the [employer] Instrument Swab NASOPHARYNGEAL STRUCTURE / Unknown Swab / Unknown 01/11/2024 21:16 EDT 01/11/2024 21:35 EDT us Arnaldo Duke MD MICROBIOLOGY - GENERAL ORDERABLE S Final Result Performing Organization Address [facility]/State/[place] Co de Phone Number [facility] [address] [place] [id number] * (ABNORMAL) COMPLETE BLOOD COUNT AND DIFFERENTIAL (01/11/2024 21:16 EDT) WBC 4.56 4.00 - 12.40 K/cmm 01/11/2024 21:45 [facility] RBC 4.07 3.86 - 5.04 M/cmm 01/11/2024 21:45 [facility] Hemoglobin 12.5 11.6 - 15.2 g/dL 01/11/2024 21:45 [facility] HCT 35.1 34.9 - 44.4 % 01/11/2024 21:45 [facility] MCV 86 81 - 98 fL 01/11/2024 21:45 [facility] MCH 30.7 26.7 - 33.3 pg 01/11/2024 21:45 [facility] MCHC 35.6 32.1 - 35.9 g/dL 01/11/2024 21:45 [facility] RDW-CV 12.3 <14.7 % 01/11/2024 21:45 [facility] RDW-SD 38.6 <50.4 fl 01/11/2024 21:45 [facility] PLT 285 141 - 377 K/cmm 01/11/2024 21:45 [facility] MPV 10.7 9.5 - 12.7 fL 01/11/2024 21:45 [facility] % Neutrophils 66.9 % 01/11/2024 21:45 [facility] % Lymphocytes 24.1 % 01/11/2024 21:45 [facility] % Monocytes 8.6 % 01/11/2024 21:45 [facility] % Eosinophils 0.0 % 01/11/2024 21:45 [facility] % Basophils 0.2 % 01/11/2024 21:45 [facility] % Immature Grans 0.2 % 01/11/20 21:45 [facility] Absolute Neutrophils 3.05 2.20 - 8.85 K/cmm 01/11/2024 21:45 [facility] Absolute Lymphocytes 1.10 1.09 - 3.30 K/cmm 01/11/2024 21:45 [facility] Absolute Monocytes 0.39 0.10 - 0.80 K/cmm 01/11/2024 21:45 [facility] Absolute Eosinophils 0.00(L) 0.03 - 0.61 K/cmm 01/11/2024 21:45 [facility] ABS Basophils 0.01 0.01 - 0.11 K/cmm 01/11/2024 21:45 [facility] Absolute Immature Grans 0.01 0.00 - 0.06 K/cmm 01/11/2024 21:45 [facility] Type of Differential: Auto 01/11/2024 21:45 [facility] Blood VENOUS BLOOD / Unknown Venipuncture / Unknown 01/11/2024 21:16 EDT 01/11/2024 21:35 EDT us Arnaldo Duke MD PACKAGES & DNA PROBE ORDERABLES Final Result Performing Organization Address City/[facility]/ZIP Co de Phone Number [facility] [address] [place], [place] [phone] * POCT GLUCOSE, INTERFACED (01/11/2024 19:07 EDT) [facility] Glucose, POC 99 70 - 100 mg/dL 01/11/2024 19:08 EDT [facility] HN LAB POC COMMENT (GLUCOSE) Test Performed by Nursing Services 01/11/2024 19:08 EDT [facility] Blood CAPILLARY BLOOD / Unknown 01/11/2024 19:07 EDT 01/11/2024 19:08 EDT Antoinette Adames MD POINT OF CARE TEST ORDERABLE S Final Result Performing Organization Address [facility]/[place] Co de Phone Number [facility] [address] [place] [address] * QUANT BETA HCG, (01/11/2024 18:41 EDT) [facility] Beta HCG Quant, <5 <5 mIU/mL 01/12/2024 0:11 EDT [facility] Comment: NOTE: : Negative: Less than 5mIU/mL Indeterminant: Between 5 and 25 mIU/mL, recommend repeat testing in 48 hours Positive: Greater than 25 mIU/mL The results of this assay can be falsely lowered due to the consumption of Biotin. Blood VENOUS BLOOD / Unknown Venipuncture / Unknown 01/11/2024 18:41 EDT 01/11/2024 18:49 EDT us Arnaldo Duke MD CHEMISTRY & BLOOD GAS ORDERABLES Final Result Performing Organization Address City/[facility]/ZIP Co de Phone Number [facility] [address] [place] [address] * (ABNORMAL) NT PRO BNP (01/11/2024 18:41 EDT) Pathologist [facility] [place] NT-pro BNP 120(H) <95 pg/mL 01/11/2024 20:03 EDT [facility] Comment: In the acute setting NT-proBNP values <300 pg/mL have a 98% NPV for excluding acute heart failure. In outpatient populations, NT-proBNP values <125 have a 99% NPV for excluding heart failure. Blood VENOUS BLOOD / Unknown Venipuncture / Unknown 01/11/2024 18:41 EDT 01/11/2024 18:49 EDT Arnaldo Duke MD CHEMISTRY & BLOOD GAS ORDERABLES Final Result Performing Organization Address [facility]/[place] Co de Phone Number [facility] [address] [place] [address] * TROPONIN I (01/11/2024 18:41 EDT) [facility] Troponin I (ng/mL) <0.034 <0.034 ng/mL 01/11/2024 20:03 EDT [facility] Blood VENOUS BLOOD / Unknown Venipuncture / Unknown 01/11/2024 18:41 EDT 01/11/2024 18:49 EDT Narrative [facility] - 01/11/2024 20:03 EDT The results of this assay can be falsely lowered due to the consumption of Biotin. Arnaldo Duke MD CHEMISTRY & BLOOD GAS ORDERABLES Final Result Performing Organization Address [facility]/ZIP Co de Phone Number [facility] [address], [place] [phone] * MAGNESIUM (01/11/2024 18:41 EDT) Pathologist [facility] Magnesium 2.0 1.7 - 2.8 mg/dL 01/11/2024 19:52 EDT [facility] Blood VENOUS BLOOD / Unknown Venipuncture / Unknown 01/11/2024 18:41 EDT 01/11/2024 18:49 EDT us Arnaldo Duke MD CHEMISTRY & BLOOD GAS ORDERABLES Final Result Performing Organization Address [facility]/ZIP Co de Phone Number [facility] [address] [place] [address] * LIPASE (01/11/2024 18:41 EDT) [facility] Lipase 94 <251 U/L 01/11/2024 19:52 EDT [facility] Blood VENOUS BLOOD / Unknown Venipuncture / Unknown 01/11/2024 18:41 EDT 01/11/2024 18:49 EDT us Arnaldo Duke MD CHEMISTRY & BLOOD GAS ORDERABLES Final Result Performing Organization Address [facility] de Phone Number [facility] [address] [place] [address] * (ABNORMAL) HEPATIC FUNCTION PANEL (ALB,ALK PHOS,ALT,AST,DBIL,TOT ERROL,TOT PROT) (01/11/2024 18:41 EDT) [facility] Total Protein 8.1 6.3 - 8.2 g/dL 01/11/2024 19:52 EDT [facility] Albumin 4.7 3.4 - 4.9 g/dL 01/11/2024 19:52 T [facility] Bilirubin, Total 1.4(H) <1.4 mg/dL 01/11/20 19:52 T [facility] Conjugated Bilirubin 0.0 <=0.3 mg/dL 01/11/2024 19:52 [facility] Unconjugated Bilirubin 1.0 <=1.1 mg/dL 01/11/2024 19:52 [facility] Alkaline Phosphatase 47 38 - 126 U/L 01/11/2024 19:52 [facility] ALT 16 <35 U/L 01/11/2024 19:52 [facility] AST 32 15 - 46 U/L 01/11/2024 19:52 [facility] Calculated Total Bilirubin 1.0 <1.4 mg/dL 01/11/2024 19:52 [facility] Blood VENOUS BLOOD / Unknown Venipuncture / Unknown 01/11/2024 18:41 EDT 01/11/2024 18:49 EDT Arnaldo Duke MD CHEMISTRY & BLOOD GAS ORDERABLES Final Result [facility] [address] [place] [address] * (ABNORMAL) BASIC METABOLIC PANEL (BMP) (01/11/2024 18:41 EDT) Sodium 138 136 - 145 mmol/L 01/11/2024 19:52 [facility] Potassium 3.6 3.5 - 5.0 mmol/L 01/11/2024 19:52 [facility] Chloride 108 96 - 110 mmol/L 01/11/2024 19:52 [facility] CO2 Total 18(L) 22 - 32 mmol/L 01/11/2024 19:52 [facility] Anion Gap 12 5 - 14 mmol/L 01/11/2024 19:52 [facility] Glucose 116(H) 70 - 99 mg/dl 01/11/2024 19:52 [facility] Calcium 9.7 8.5 - 10.5 mg/dL 01/11/2024 19:52 [facility] BUN 9(L) 10 - 26 mg/dL 01/11/2024 19:52 [facility] Creatinine 0.52 0.52 - 1.04 mg/dL 01/11/2024 19:52 [facility] eGFR 125 >60 mL/min/1.73 m2 01/11/2024 19:52 [facility] Blood VENOUS BLOOD / Unknown Venipuncture / Unknown 01/11/2024 18:41 EDT 01/11/2024 18:49 EDT us Cheri Muniz MD CHEMISTRY & BLOOD GAS ORDERAB LES Final Result [facility] [address] [place], [place] [id number] * (ABNORMAL) COMPLETE BLOOD COUNT AND DIFFERENTIAL (01/11/2024 18:41 EDT) WBC 5.93 4.00 - 12.40 K/cmm 01/11/2024 19:17 [facility] RBC 4.30 3.86 - 5.04 M/cmm 01/11/2024 19:17 [facility] Hemoglobin 13.2 11.6 - 15.2 g/dL 01/11/2024 19:17 [facility] HCT 36.7 34.9 - 44.4 % 01/11/2024 19:17 [facility] MCV 85 81 - 98 fL 01/11/2024 19:17 [facility] MCH 30.7 26.7 - 33.3 pg 01/11/2024 19:17 [facility] MCHC 36.0(H) 32.1 - 35.9 g/dL 01/11/2024 19:17 [facility] RDW-CV 12.3 <14.7 % 01/11/2024 19:17 [facility] RDW-SD 38.4 <50.4 fl 01/11/2024 19:17 [facility] PLT 294 141 - 377 K/cmm 01/11/2024 19:17 [facility] MPV 10.5 9.5 - 12.7 fL 01/11/2024 19:17 [facility] % Neutrophils 66.9 % 01/11/2024 19:17 [facility] % Lymphocytes 24.5 % 01/11/2024 19:17 [facility] % Monocytes 8.1 % 01/11/2024 19:17 [facility] % Eosinophils 0.0 % 01/11/2024 19:17 [facility] % Basophils 0.3 % 01/11/2024 19:17 [facility] % Immature Grans 0.2 % 01/11/20 19:17 [facility] Absolute Neutrophils 3.97 2.20 - 8.85 K/cmm 01/11/2024 19:17 [facility] Absolute Lymphocytes 1.45 1.09 - 3.30 K/cmm 01/11/2024 19:17 [facility] Absolute Monocytes 0.48 0.10 - 0.80 K/cmm 01/11/2024 19:17 [facility] Absolute Eosinophils 0.00(L) 0.03 - 0.61 K/cmm 01/11/2024 19:17 [facility] ABS Basophils 0.02 0.01 - 0.11 K/cmm 01/11/2024 19:17 [facility] Absolute Immature Grans 0.01 0.00 - 0.06 K/cmm 01/11/2024 19:17 [facility] Type of Differential: Auto 01/11/2024 19:17 [facility] Blood VENOUS BLOOD / Unknown Venipuncture / Unknown 01/11/2024 18:41 EDT 01/11/2024 18:49 EDT us Cheri Muniz MD PACKAGES & DNA PROBE ORDERABL ES Final Result [facility] [address] [place] [address] * HOLD BLUE TOP (01/11/2024 18:41 EDT) Hold Hold 01/11/2024 20:01 [facility] Blood VENOUS BLOOD / Unknown Venipuncture / Unknown 01/11/2024 18:41 EDT 01/11/2024 18:50 EDT us Cheri Muniz MD LAB INFO SERVICE AND SUPPORT & PHONE RESULT Final Result Performing Organization Address City/[facility]/ZIP Co de Phone Number [facility] [address] [place] [address] * HOLD SST (01/11/2024 18:41 EDT) Hold Hold 01/11/2024 20:01 EDT [facility] Blood VENOUS BLOOD / Unknown Venipuncture / Unknown 01/11/2024 18:41 EDT 01/11/2024 18:49 EDT us Cheri Muniz MD LAB INFO SERVICE AND SUPPORT & PHONE RESULT Final Result Performing Organization Address City/[facility]/ZIP Co de Phone Number [facility] [address] [place] [phone] * HOLD LAVENDER TOP (01/11/2024 18:41 EDT) Hold Hold 01/11/2024 20:01 EDT [facility] Blood VENOUS BLOOD / Unknown Venipuncture / Unknown 01/11/2024 18:41 EDT 01/11/2024 18:49 EDT us Cheri Muniz MD LAB INFO SERVICE AND SUPPORT & PHONE RESULT Final Result [facility] [address] [place], [place] [phone] * HOLD GREEN TOP (01/11/2024 18:41 EDT) Hold Hold 01/11/2024 20:01 EDT [facility] Blood VENOUS BLOOD / Unknown Venipuncture / Unknown 01/11/2024 18:41 EDT 01/11/2024 18:49 EDT us Cheri Muniz MD LAB INFO SERVICE AND SUPPORT & PHONE RESULT Final Result [facility] [address] [place] [address] * EKG 12-LEAD (01/11/2024 18:35 EDT) 01/11/2024 18:3 5 EDT Narrative [facility] EKG - 01/12/2024 14:36 EDT ?[facility] Emergency ? Test Date: ?2024-01-11 Pat Name: ? NERMA MACEDONCI ?Department: ?? ED ? Room: ? AC01 Gender: ? Female ? Circular Saw Operator: ?? : ?1990 ? Requested By: DARY Sauer Order Number: [id number] ? Samira GODOY: ?? NADINE MCWILLIAMS MD ? Measurements Intervals ?Gardner ? Rate: ? 84 ? P: ?0 RI: ? 0 ?QRS: ?67 QRSD: ? 78 ? T: ?22 QT: ? 357 ? QTc: ?424 ? Interpretive Statements SINUS RHYTHM WITH SINUS ARRHYTHMIA Compared to ECG 01/10/2024 23:26:15 The heart rate has increased I reviewed the tracing and have either agreed or edited the findings in this report. Electronically Signed On 01-12-2024 14:36:06 EDT by NADINE MCWILLIAMS MD. Procedure Note Nadine Mcwilliams MD - 01/12/2024 [facility] Emergency Test Date: 2024-01-11 Pat Name: MINE LYNN Department: ED Room: [facility] Gender: Female Circular Saw Operator: : 1990 Requested By: DARY Sauer Order Number: [id number] Reading MD: NADINE MCWILLIAMS MD Measurements Intervals Gardner Rate: 84 P: 0 RI: 0 QRS: 67 QRSD: 78 T: 22 QT: 357 QTc: 424 Interpretive Statements SINUS RHYTHM WITH SINUS ARRHYTHMIA Compared to ECG 01/10/2024 23:26:15 The heart rate has increased I reviewed the tracing and have either agreed or edited the findings inthis report. Electronically Signed On 01-12-2024 14:36:06 EDT by AGUSTINA GODOY. us Cheri Muniz MD CARDIAC ECG ORDERABLES Final Result [facility] EKG documented in this encounter Visit Diagnoses Diagnosis Muscle hypertonia- Primary Spasm of muscle Spells of trembling Abnormal involuntary movements documented in this encounter Administered Medications Inactive Administered Medications - up to 3 most recent administrations Medication Order MAR Action Action Date Dose Rate Site diphenhydrAMINE (BENADRYL) injection 25 mg 25 mg, intravenous, NOW X1, 1 dose, On Mon01/11/24 at 1945, STAT Given 01/11/2024 20:06 EDT 25 mg droPERidol (INAPSINE) injection 2.5 mg 2.5 mg, intravenous, NOW X1, 1 dose, On Mon01/11/24 at 1945, STAT Given 01/11/2024 20:05 EDT 2.5 mg gadoterate meglumine solution 1-30 mL 1-30 mL, intravenous, Once in imaging, 1 dose, Starting on Mon01/12/24 at 0249, Until Mon01/12/24 at 0249, Routine, Imaging Protocol Orders Given 01/12/2024 2:49 EDT 11 mL lactated ringers BOLUS 1,000 mL 1,000 mL, intravenous, NOW X1, 1 dose, On Mon01/11/24 at 1945, STAT New Bag 01/11/2024 20:05 EDT 1,000 mL LORazepam (ATIVAN) injection 1 mg 1 mg, intravenous, NOW X1, 1 dose, On Mon01/11/24 at 1945, STAT Given 01/11/2024 20:06 EDT 1 mg LORazepam (ATIVAN) injection 1 mg 1 mg, intravenous, NOW X1, 1 dose, On Mon01/12/24 at 0015, STAT Given 01/12/2024 1:05 EDT 1 mg LORazepam (ATIVAN) tablet 1 mg 1 mg, oral, NOW X1, 1 dose, On Mon01/12/24 at 0715, STAT Given 01/12/2024 7:15 EDT 1 mg documented in this encounter Active and Recently Administered Medications Times are shown in EDT. Scheduled Medication Order 01/10/2024 01/11/2024 01/12/2024 diphenhydrAMINE (BENADRYL) injection 25 mg (COMPLETED) 25 mg, intravenous, NOW X1, 1 dose, On Mon01/11/24 at 1945, STAT 2005 (Given - Provider: Sally Lilly, LAZARA) droPERidol (INAPSINE) injection 2.5 mg (COMPLETED) 2.5 mg, intravenous, NOW X1, 1 dose, On Mon01/11/24 at 1945, STAT 2004 (Given - Provider: Sally Lilly, LAZARA) gadoterate meglumine solution 1-30 mL (COMPLETED) 1-30 mL, intravenous, Once in imaging, 1 dose, Starting on Mon01/12/24 at 0249, Until Mon01/12/24 at 0249, Routine, Imaging Protocol Orders 0249 (Given - Provid er: Penelope Valdez) lactated ringers BOLUS 1,000 mL (COMPLETED) 1,000 mL, intravenous, NOW X1, 1 dose, On Mon01/11/24 at 1945, STAT 2004 (New Bag - Provider: Sally Lilly RN)2213 (IV Stopped - Provider: Justine Haywood RN) LORazepam (ATIVAN) injection 1 mg (COMPLETED) 1 mg, intravenous, NOW X1, 1 dose, On Mon01/11/24 at 1945, STAT 2005 (Given - Provider: Sally Lilly, LAZARA) LORazepam (ATIVAN) injection 1 mg (COMPLETED) 1 mg, intravenous, NOW X1, 1 dose, On Mon01/12/24 at 0015, STAT 0105 (Given - Provid er: Sally Lilly RN) LORazepam (ATIVAN) tablet 1 mg (COMPLETED) 1 mg, oral, NOW X1, 1 dose, On Mon01/12/24 at 0715, STAT 0715 (Given - Provid er: Patricia Tracy RN) documented in this encounter Orders Medications Ordered That Say ht Not Have Been Administered Count Last Ordered Date First Ordered Date droPERidol (INAPSINE) injection 5 mg 1 12/22 documented in this encounter Additional Health Concerns Infection Onset Date Last Indicated Resolved Time R/O COVID 01/11/2024 01/11/2024 01/11/2024 22:3 5 EDT documented as of this encounter Care Teams Physical Aerodynamicist Relationship Specialty Start Date End Date Ariana Dill DNP [address] [place] [address] PCP - General 08/07/23 Rach Waddell MD [address] [facility] [address] [place] [address] Sheet Taker Obstetrics and Gynecology 05/10/23 documented as of this encounter
--- OUTSIDE RECORDS SUMMARY | 2024-11-10 02:15 | XMS_ITS | Encounter Summary ---
Author Organization [facility] Address [address] [place] [address] Care Team Providers Care Heel Cutter Name Role Phone Rach Waddell MD Unavailable Ariana Dill DNP Primary Care Provider Encounter Details Date Type Department Care Team (Latest Contact Info) Description 01/05/2024 Lab Requisition [facility] Pathology & Laboratory Medicine - [facility] [address] [place] [address] Ariana Dill DNP [address] [place], [place] [phone] Other symptoms and signs involving the genitourinary [...] Info) Description 11/18/2024 8:15 EST Office Visit [facility] Pelvic Medicine and Reconstructive Surgery - Medical Office Building [facility] [address] [place] [address] Julia Terrell PA-C [address] [facility] Medical [facility] Building, [address] [place] [phone] 11/25/2024 8:00 EST Rehab Therapy Visit [facility] Rehabilitation Therapy - Medical Office Building [address] [place], [place] [phone] Cira Jackson DPT [address] [facility], [facility], [address] [place] [phone] 12/02/2024 8:00 EST Rehab Therapy Visit [facility] Rehabilitation Therapy - Medical Office Building [address] [place] [address] Cira Jackson, DPT [address] [place] [address], [facility], [address] [place] [phone] 12/09/2024 8:00 EST Rehab Therapy Visit [facility] Rehabilitation Therapy - Medical Office Building [address] [place] [address] Cira Jackson, ROBERTO [address] [place] [address], [facility], [address] [place] [phone] 12/16/2024 9:00 EST Rehab Therapy Visit [facility] Rehabilitation Therapy - Medical Office [address] [address] Cira Jackson, KEMALT [address] [place] [address], [facility], [address] [place] [phone] 12/23/2024 9:00 EST Rehab Therapy Visit [facility] Rehabilitation [facility] - Medical Office [address] [address] Cira Jackson, DPT [address] [place] [address], [facility], [address] [place] [phone] documented as of this encounter Procedures Procedure Name Priority Date/Time Associated Diagnosis Comments BACTERIAL CULTURE, URINE Today 01/05/2024 14:27 EDT Other symptoms and signs involving the genitourinary system documented in this encounter Results * BACTERIAL CULTURE, URINE (01/05/2024 14:27 EDT) Organism ID Less than 10,000 CFU/ml usual urogenital tomy. 01/07/2024 10:39 EDT [facility] Urine URINE SPECIMEN OBTAINED BY CLEAN CATCH PROCEDURE / Unknown 01/05/2024 14:27 EDT 01/05/2024 20:45 EDT Ariana Dill DNP MICROBIOLOGY - GENERAL OR DERABLES Final Result [facility] [address] [place], [place] [address] documented in this encounter Visit Diagnoses Diagnosis Other symptoms and signs involving the genitourinary system documented in this encounter Additional Health Concerns Infection Onset Date Last Indicated Resolved Time R/O COVID 01/11/2024 01/11/2024 01/11/2024 22:3 5 EDT documented as of this encounter Care Teams Heel Cutter Relationship Specialty Start Date End Date Ariana Dill DNP [address] [place] [address] PCP - General 08/07/23 Rach Waddell MD 111 [facility], [address] [place] [phone] Miter Operator Obstetrics and Gynecology 05/10/23 documented as of this encounter
--- OUTSIDE RECORDS SUMMARY | 2024-11-10 02:15 | XMS_ITS | Encounter Summary ---
Author Organization [facility] Address [address] [place] [address] Care Team Providers Care Take Off Worker Name Role Phone Rach Waddell MD Unavailable [phone] Ariana Dill DNP Primary Care Provider [phone] Reason for Referral * Radiology Services (Routine/Next Available) - Closed Specialty Diagnoses / Procedures Referred By Contac t Referred To Contact Radiology Diagnoses Pelvic pain syndrome Procedures MR FEMALE PELVIS W WO CONTRAST Rach Waddell MD Phone: tel: fax: [facility] Referral ID Status Reason Start Date Expiration Date Visits Re quested Visits Authorized [id number] Closed 08/29/2023 10/27/2023 1 1 Reason for Visit * Radiology Services (Routine/Next Available) - Closed Specialty Diagnoses / Procedures Referred By Contac t Referred To Contact Radiology Diagnoses Pelvic pain syndrome Procedures MR FEMALE PELVIS W WO CONTRAST Rach Waddell MD Phone: tel: fax: [facility] Referral ID Status Reason Start Date Expiration Date Visits Re quested Visits Authorized [id number] Closed 08/29/2023 10/27/2023 1 1 Encounter Details Date Type Department Care Team (Latest Contact Info) Description 09/07/2023 9:30 EST - 09/07/2023 9:32 EST Hospital Encounter [facility] [address] [place] [address] Pelvic pain syndrome Discharge Disposition: Home or [...] Info) Description 11/18/2024 8:15 EST Office Visit [facility] Pelvic Medicine and Reconstructive Surgery - Medical Office Building [facility] [address] [place] [address] Julia Terrell PA-C 2 [facility] Medical Office Building, [address] [place] [phone] 11/25/2024 8:00 EST Rehab Therapy Visit [facility] Rehabilitation Therapy - Medical Office Building [address] [place] [address] Cira Jackson, DPT [address] [place] [address], [facility], [address] [place] [phone] 12/02/2024 8:00 EST Rehab Therapy Visit [facility] Rehabilitation Therapy - Medical Office Building [address] [place] [address] Cira Jackson, DPT [address] [place] [address], [address] [place] [phone] 12/09/2024 8:00 EST Rehab Therapy Visit [facility] Rehabilitation Therapy - Medical Office Building [address] [place] [address] Cira Jackson, DPT [address] [place] [address], [address] [place] [phone] 12/16/2024 9:00 EST Rehab Therapy Visit [facility] Rehabilitation Therapy - Medical Office Building [address] [place] [address] Cira Jackson, DPT [address] [place] [address], [address] [place] [phone] 12/23/2024 9:00 EST Rehab Therapy Visit [facility] Rehabilitation Therapy - Medical Office Building [address] [place] [address] Cira Jackson, DPT [address] [facility], [facility], [address] [place] [address] documented as of this encounter Procedures Procedure Name Priority Date/Time Associated Diagnosis Comments MR FEMALE PELVIS W WO CONTRAST Routine 09/07/2023 11:30 EST Pelvic pain syndrome documented in this encounter Results * MR FEMALE PELVIS W WO CONTRAST (09/07/2023 11:30 EST) Anatomical Region Laterality Modality Body, Pelvis Magnetic Resonan ce 09/07/2023 16:1 3 EST Impressions 09/07/2023 16:13 EST 1. ??Focal thickening of the junctional zone measuring 11 mm, although does not meet diagnostic criteria for uterine adenomyosis. 2. ??Status post . I have personally reviewed the images and the above interpretation and agree with the findings. [id number] Narrative 09/07/2023 16:13 EST MR FEMALE PELVIS W WO CONTRAST ??09/07/2023 9:30 AM Signs and Symptoms/Comments: pelvic pain syndrome; Pelvic pain, neg beta-HCG, coupon manifest clerk etiol suspected; pelvic pain syndrome;R10.2:Pelvic pain syndrome Technique: MR of the pelvis obtained with and without intravenous gadolinium. Comparison: Ultrasound May 10, 2023 Findings: Uterus/ Cervix: There appears to be focal thickening of the junctional zone along the superior border, measuring 11 mm. scar is present. Nabothian cyst noted.. Vagina: No significant abnormality. Adnexa: Normal. Ureters, bladder, urethra: No significant abnormality. No evidence of recurrent urethral diverticulum. Bowel: Included regions of bowel are normal. Peritoneal cavity: Trace free fluid in the pelvis, likely physiologic. Lymph nodes: No enlarged lymph node. Vascular: Normal flow voids and intravascular enhancement Pelvic wall/groin: No significant abnormality. Musculoskeletal: No concerning lesion in the pelvis. Localizer: No significant abnormality. Procedure Note Harish Mckinney MD - 09/07/2023 MR FEMALE PELVIS W WO CONTRAST 09/07/2023 9:30 AM Signs and Symptoms/Comments: pelvic pain syndrome; Pelvic pain, negbeta-HCG, coupon manifest clerk etiol suspected; pelvic pain syndrome;R10.2:Pelvic painsyndrome Technique: MR of the pelvis obtained with and without intravenousgadolinium. Comparison: Ultrasound May 10, 2023 Findings: Uterus/ Cervix: There appears to be focal thickening of the junctionalzone along the superior border, measuring 11 mm. scar ispresent. Nabothian cyst noted.. Vagina: No significant abnormality. Adnexa: Normal. Ureters, bladder, urethra: No significant abnormality. No evidence ofrecurrent urethral diverticulum. Bowel: Included regions of bowel are normal. Peritoneal cavity: Trace free fluid in the pelvis, likely physiologic. Lymph nodes: No enlarged lymph node. Vascular: Normal flow voids and intravascular enhancement Pelvic wall/groin: No significant abnormality. Musculoskeletal: No concerning lesion in the pelvis. Localizer: No significant abnormality. IMPRESSION 1. Focal thickening of the junctional zone measuring 11 mm, although doesnot meet diagnostic criteria for uterine adenomyosis. 2. Status post . I have personally reviewed the images and the above interpretation andagree with the findings. [id number] Rach Waddell MD IM MRI ORDERABLES Final Res ult documented in this encounter Visit Diagnoses Diagnosis Pelvic pain syndrome Pelvic congestion syndrome documented in this encounter Administered Medications Inactive Administered Medications - up to 3 most recent administrations Medication Order MAR Action Action Date Dose Rate Site gadoterate meglumine solution 1-30 mL 1-30 mL, intravenous, Once in imaging, 1 dose, Starting on Renee 09/07/23 at 1131, Until Renee 09/07/23 at 1131, Routine, Imaging Protocol Orders Given 09/07/2023 11:31 EST 9 mL documented in this encounter Care Teams Take Off Worker Relationship Specialty Start Date End Date Ariana Dill DNP [address] [place] [address] PCP - General 08/07/23 Rach Waddell MD [address] [place] [address] [address] [place] [phone] Cookie Breaker Obstetrics and Gynecology 05/10/23 documented as of this encounter
--- OUTSIDE RECORDS SUMMARY | 2024-11-10 02:15 | XMS_ITS | Encounter Summary ---
Author Organization [facility] Address [address] [place] [address] Care Team Providers Care Switch Operators Supervisor Name Role Phone Rach Waddell MD Unavailable Ariana Dill DNP Primary Care Provider [phone] Reason for Visit * Reason Comments Back Pain Bilateral more on ri ght side * Consult (Routine/Next Available) - Authorization Not Required Specialty Diagnoses / Procedures [facility] Contact Pain Medicine Diagnoses Lumbar disc herniation Radicular leg pain Coccydynia Caitlin Snow PA-C Phone: tel: fax: [facility] Interventional Pain [address] [place] [address] Phone: tel: fax: Referral ID Status Reason Start Date Expiration Date Visits Requested Visits Authorized [id number] Authorization Not Required Specialty Services Required 3 1 1 Encounter Details Date Type Department Care Team (Latest Contact Info) Description 12/18/2023 13:00 EST Initial consult [facility] Interventional Pain [address] [place] [address] Cheri Russell PA-C [address] [facility] [address] [place] [address] Lumbar disc herniation; Radicular leg pain; Coccydynia Social History Tobacco [...] Sign Reading Time Taken Comments Blood Pressure 102/56 12/18/2023 1237 EST Pulse - - Temperature - - Respiratory Rate 16 12/18/2023 1237 EST Oxygen Saturation - - Inhaled Oxygen Concentration [...] Lois Deal RN documented in this encounter Progress Notes * Cheri Russell PA-C - 12/18/2023 1300 EST [facility] Out[facility] PAIN Consult Patient Name: Mine Lynn : 1990 Date of Service: 12/18/2023 Primary Care Provider: Ariana Dill NP Chief complaint: Chief Complaint Patient presents with Back Pain Bilateral more on right side History of Present Illness/Pain complaint: Mine Lynn is a 33 y.o. female seen today for evaluation of a chief complaint of back and leg pain. Location of Pain/ Radicular pattern: Pain is located in the mid back with some radiation on the right leg. She also notes that she broke her tailbone in 2015 so she has chronic tailbone pain as well. Duration of current pain signs and symptoms: Patient has had chronic pain for at least a couple years. She notes that the pain started after her first labor in 2015 and progressed after her second child in 2021. Description/Characteristics of Pain: She describes the pain as an achy and sometimes sharp pain Associated symptoms: Patient does note some weakness in the right leg compared to the left. No unexplained weight loss, bsaddle numbness, unexplained fever, or trauma. Activities that worsen pain: prolong sitting, standing, walking Activities that improve pain: resting The patient's average pain scale report today on a VAS 1-10: 8/10 Patient reports that over the past year or two, she developed chronic /intermittent bladder incontinence of unclear etiology. Upon reviewing her history - she did see [facility] urology back in 2018 and was reporting incontinence symptoms at that time. She was diagnosed with overactive bladder and pelvic floor dysfunction . She also saw [facility] here at [facility] in 2018 and had urinary incontinence then. She has seen orthopedics recently who ordered a thoracic MRI to rule out cord impingement proximally that could contribute to her urinary symptoms. MRI thoracic spine was unremarkable. This pain has had a negative impact on the patients quality of life as she has not been able to complete her daily activities. Prior interventional pain procedures and response include: None Conservative treatment Physical therapy: Patient did physical therapy at [facility]. She has done chiropractor care aswell with [...] significant degenerative changes in the lumbar spine. Allergies Allergen Reactions Imitrex [Sumatriptan Succinate] Shortness Of Breath Outpatient Medications Marked as Taking for the 12/18/23 encounter (Initial consult) with Cheri Russell PA-C Medication Sig Dispense Refill acetaminophen (TYLENOL) 500 mg tablet Take 2 Tablets by mouth every 8 hours as needed for Pain. 180Tablet 0 HYDROcodone-acetaminophen (NORCO) 5-325 mg tablet Take 1 Tablet by mouth every 6 hours as needed for Pain. Daily Max: 4 Tablets 10 Tablet 0 HYDROcodone-acetaminophen (NORCO) 5-325 mg tablet Take 1 Tablet by mouth every 6 hours as needed for Pain. Daily Max: 4 Tablets 10 Tablet 0 inhalational spacing device (BREATHERITE MDI SPACER) Use with a metered dose inhaler, as directed. May be dispensed with mask as appropriate.. 1 Each 0 lidocaine 5 % (LIDODERM) 5 % patch APPLY 2 PATCHS ON THE SKIN ONCE DAILY UP TO 12 HOURS ON AND 12 HOURS OFF 20 Patch 1 Past Medical History: Diagnosis Date Anxiety, generalized Ativan intermittently during Pelvic floor dysfunction Past Surgical History: Procedure Laterality Date OTHER SURGICAL HISTORY 2008 Excision of periurethral cysts at [facility] Social History Socioeconomic History Marital status: Single Spouse name: Not on file Number of children: Not on file Years of education: Not on file Highest education level: Not on file Occupational History Not on file Tobacco Use Smoking status: Never Smokeless tobacco: [...] on file Housing Stability: Not on file Family History Problem Relation Age of Onset Asthma Mother Hypertension Father Review of Systems A 10 point review of system was performed and reviewed. Pertinent positives have been included in HPI and past medical history. All others negative. Physical Examination Vitals: Blood pressure 102/56, resp. rate 16. General: Pleasant, cooperative, mood and affect are appropriate. Neuro: Alert and oriented to person, place, time and purpose. Posture: good posture Gait: slow gait Palpation: There are no palpable masses, lesions or deformities. Skin: Intact with no stigmata of underlying disease. ROM: decrease ROM of lumbar spine Sensation: Grossly intact throughout all dermatomes . Strength: LOWER Right Left Hip flexion ( L1 L2) 4/5 5/5 Knee extension (L2-L4) 4/5 5/5 Ankle dorsiflexion (L5, +/-L4) 4/5 5/5 Extensor hallucis longus (L5) 4/5 5/5 Ankle plantarflexion (S1) 4/5 5/5 Reflexes: Right Left Patellar L4 2/4 2/4 Ankles S1 2/4 2/4 Assessment and Plan Encounter Diagnoses Name Primary? Lumbar disc herniation Radicular leg pain Coccydynia This is a 33 year old female who presents with chronic low back pain and right radicular leg pain. MRI was reviewed ad she does have a large disc bulge with a right paracentral disc extrusion at L5-S1 abutting the right S1 nerve root. She does have urinary incontinence but upon reviewing her chart --> she has reported this back in 2017 /2017 and has been worked up for this from urology ( diagnosed with overactive bladder and pelvic floor dysfunction. She recently had a thoracic MRI which wasunremarkable. Encouraged her to continue at home exercises. Interventional Plan: Recommend proceeding with lumbar epidural at L5-S1. Regarding the above interventions, the patient has been educated regarding the risks (including bleeding, infection, increased pain, nerve damage, or allergic reaction), benefits, and alternatives. The patient states he/she understands and is eager to proceed. Non- Interventional Plan: Continue follow up with orthopedics. Thank you for the consultation, please call with any questions. Cheri Russell PA-C Interventional Pain Medicine [facility] 12/18/23 I spent a total of 45 minutes on the date of this encounter meeting with the patient and reviewing documentation/coordinating care as described in the above note. Dr. Oconnell was the attending physician available in the clinic today if needed. A consultation was not required. documented in this encounter Plan of Treatment Upcoming Encounters Date Type Department Care Team (Late st Contact Info) Description 11/18/2024 8:15 EST Office Visit [facility] Pelvic Medicine and Reconstructive Surgery - Medical Office [facility] [address] [place] [id number] Julia Terrell PA-C [address] [facility] Medical Office Building, [address] [place] [phone] 11/25/2024 8:00 EST Rehab Therapy Visit [facility] Rehabilitation Therapy - Medical Office Building [address] [place], [place] [id number] Cira Jackson, DPT [address] [facility], [facility], [address] [place] [phone] 12/02/2024 8:00 EST Rehab Therapy Visit [facility] Rehabilitation Therapy - Medical Office [address] [place] [address] Cira Jackson DPT [address] [place] [address], [facility], [address] [place] [phone] 12/09/2024 8:00 EST Rehab Therapy Visit [facility] Rehabilitation Therapy - Medical Office [address] [place] [address] Cira Jackson, ROBERTO [address] [place] [address], [facility], [address] [place] [phone] 12/16/2024 9:00 EST Rehab Therapy Visit [facility] Rehabilitation Therapy - Medical Office [address] [place] [address] Cira Jackson DPT [address] [place] [address], [facility], [address] [place] [phone] 12/23/2024 9:00 EST Rehab Therapy Visit [facility] Rehabilitation Therapy - Medical Office [address] [place] [address] Cira Jackson DPT [address] [place] [address], [facility], [address] [place] [phone] documented as of this encounter Visit Diagnoses Diagnosis Lumbar disc herniation Displacement of lumbar intervertebral disc without myelopathy Radicular leg pain Thoracic or lumbosacral neuritis or radiculitis, unspecified Coccydynia Other disorder of coccyx documented in this encounter Orders Outpatient Referral Count Last Ordered Date Fir st Ordered Date AMB CONS/FOLLOW UP PAIN INTERVENTIONAL 1 documented in this encounter Care Teams Switch Operators Supervisor Relationship Specialty Start Date End Date Ariana Dill DNP [address] [place] [address] PCP - General 08/07/23 Rach Waddell MD [address] [facility], [facility] [address] [place] [phone] Hospice Plan Administrator Obstetrics and Gynecology 05/10/23 documented as of this encounter
--- OUTSIDE RECORDS SUMMARY | 2024-11-10 02:15 | XMS_ITS | Encounter Summary ---
Author Organization [facility] Address [address] [place] [address] Care Team Providers Care Dope House Operator Helper Name Role Phone Rach Waddell MD Unavailable [phone] Ariana Dill DNP Primary Care Provider [phone] Reason for Visit * Reason Comments Shaking To triage in wheelch air reporting waxing/waning episodes of shakiness throughout body, feeling weak, followed by hot flash. Has been happening since April, more frequently since Monday. Denies loss of bowel/bladder control, chronic incontinence. Denies injuries. Pressured speech, variety of somatic complaints with extended workups. Pt states that sugar stops the episodes. Distressed, skin wpd, rr even unlabored, tearful. Encounter Details Date Type Department Care Team (Late st Contact Info) Description 01/10/2024 22:04 EDT - 01/11/2024 6:04 EDT Emergency [facility] Emergency Department - Main [place] [address], [place] [id number] Martha Keyes MD MPH [address] [facility], Level [address] [place] [address] Cyst of right ovary (Primary Dx); Dehydration; Hypokalemia Discharge Disposition: Home or Self Care Social [...] Sign Reading Time Taken Comments Blood Pressure 99/82 01/11/2024 0600 EDT Pulse 85 01/11/2024 0115 EDT Temperature 37 ??C (98.6 ??F) 01/10/20242008 EDT Respiratory Rate 16 01/11/2024 0511 EDT Oxygen Saturation 98% 01/11/2024 0600 EDT Inhaled Oxygen Concentration - - Weight 56.2 kg (124 lb) 01/10/20242008 EDT Height 160 cm (5' 3) 01/10/20242008 EDT Body Mass Index 21.97 01/10/20242008 EDT documented in this encounter Functional Status [...] this encounter Discharge Instructions * Discharge Instructions* Martha Keyes MD MPH - 01/11/2024 1:14 EDT Follow up with your PCP. Increase your fluids and potassium intake. Moderate activity while taking cipro Please follow up this week with your PCP to discuss ongoing work up and follow up with rheumatology and potentially endocrinology. * Attachments The following attachments cannot be sent through Care Everywhere. * Ovarian Cyst: Hemorrhagic (Romanian) * Dehydration (Romanian) * Hypokalemia (Romanian) documented in this encounter Medications at Time [...] as needed for Pain. 180 Tablet 10/29/2021 HYDROcodone-acet aminophen (NORCO) 5-325 mg tablet Take [...] Means Destination Comment s Home or Self Long Term documented in this encounter ED Notes * Laly Bob RN - 01/11/2024 0322 EDT THIS RN RESUMING CARE OF PT AT THIS TIME. PER REPORT, AWAITING DISPO PLANS. * Sharee Rodriguez RN - 01/11/2024 0310 EDT 2320: Report received from triaging RN THEODORE. 2335: Pt brought off of the unit for US. 01/10/2023 0015: Pt just arrived back to the ED from US. She reports that the Ativan did not help at all sheexplains that she used to take Ativan at one point and the only thing she thinks would help in regards to Ativan would be if she were to receive IV Ativan. Pt is now endorsing CP, tele monitoring appears NSR. MD Keyes notified of Pts request. 0125: Pt provided with an update, she reports that her chronic pain has increased and is requestingher home dose of Hydrocodone, MD Keyes notified of this request. Pt provided with a cranberry gingerale per her request. 0244: Pt ambulated to the bathroom independently and with a steady gait. She declines having any needs at this time. 0310: Report given to receiving RN. This RN is now relinquishing care of Pt. * Giovanni Avila - 01/10/2024 2333 EDT 12 Lead EKG Performed by GIOVANNI AVILA and shown to DO Ackil * Justine Haywood RN - 01/10/2024 2257 EDT 0: Pt changed into gown and placed on continuous NBP, Spo2, tele monitoring with call mejía in reach. Pt reports ongoing symptoms since April but worsening over the last 3 weeks. Pt describes similar sxs of numbness, tingling in the setting of panic attacks r/t stress, but this is different because it has lasted longer in duration. Pt describes chest heaviness, palpitations, brain fogginess and not feeling in her body, bilateral upper extremity weakness with 3/5 grasps in both hands, no sensation deficit, bilateral weakness in BLE with visible spasms in upper thighs. Pt reports she is exhausted d/t legs being restless/ tingling for 3 days. Pt also describes recent UTI infection and is being treated on abx. Also reporting cyst to right groin, incontinence of urine which she is unsure if this is due to new medical condition or spine issues. Awaiting neuro and rheum follow up. 2245: MD Keyes at bedside for assessment. * Franco Christina RN - 01/10/20242009 EDT Chief Complaint Patient presents with Shaking To triage in wheelchair reporting waxing/waning episodes of shakiness throughout body, feeling weak, followed by hot flash. Has been happening since April, more frequently since Monday. Denies loss ofbowel/bladder control, chronic incontinence. Denies injuries. Pressured speech, variety of somatic complaints with extended workups. Pt states that sugar stops the episodes. Distressed, skin wpd, rr even unlabored, tearful. Pt reports abdominal pain x1 week, followed by pcp and obgyn. Has had bloodwork. Shakiness and muscle trembling mostly to upper legs. Denies fever. * Martha Keyes MD MPH - 01/10/20242000 EDT Emergency Department Visit This documentation is recorded by Surya Corbett acting as Scribe under the direction and presence of Martha Keyes MD MPH. Martha Keyes MD MPH: I personally performed the services recorded by the scribe in my presence. I confirm the scribe's documentation has been reviewed by me to accurately and completely record my work, treatment, procedures, and medical decision making. Medical Decision Making Patient is a 33 y.o. female with a history of spastic pelvic floor syndrome, chronic pelvic pain, and anxiety who presents to the ED with intermittent episodes of legs shaking, ringing in ears, alternating between feeling hot/cold, sweats, and clamminess since 01/07/24. Additionally, patient describes some intermittent abdominal pain, and reports that she is currently on Cipro for a suspected UTI (although a recent urine culture came back negative). Patient also describes some chronic symptoms including nausea, vomiting, urinary incontinence, and brain fog. Of note, patient says that recent blood work through her PCP showed an elevated TSH and positive FOX. On exam, patient is thin and anxious appearing, with mild right CVA tenderness and right lower quadrant/suprapubic tenderness without guarding. Patient has no clonus, and her heart, lungs, and pulses are normal. Multiple etiologies were considered for this patient's symptoms including underlying hypothyroidism, autoimmune disease (with recent positive FOX), UTI, or pyelonephritis. Patient had labs that were reviewed independently by myself, significant for evidence of dehydration and hypokalemia. EKG (independent interpretation): NSR 76 with possible short MT. Imaging (radiology interpretation) of the US pelvis transabdominal and transvaginal: Patient has a 2.8 cm hemorrhagic right ovarian cyst. 2327 - Patient was administered 0.5 mg Ativan PO. 0115 - US resulted as described above. Will discharge the patient with plan for PCP follow up. 0118 - Patient requested not to be discharged at this time, noting that she has still been having the aforementioned episodes of leg shaking. Will administer PO potassium, IV LR, and IV magnesium. 0533 - Met with patient. Discussed imaging showing hemorrhagic cyst. Discussed labs showing dehydration and hypokalemia, with reassuring muscle enzyme labs. Patient has been able to manage PO intake in the ED. Patient was amenable to discharge at this time. Medical Decision Making Problems Addressed: Cyst of right ovary: complicated acute illness or injury Dehydration: complicated acute illness or injury Hypokalemia: complicated acute illness or injury Amount and/or Complexity of Data Reviewed Labs: ordered. Radiology: ordered. Risk Prescription drug management. Final diagnoses: Cyst of right ovary Dehydration Hypokalemia Disposition: No disposition on file Chief complaint: Shaking HPI Mine Lynn is a 33 y.o. female with a history of spastic pelvic floor syndrome, chronic pelvicpain, and anxiety who presents to the ED for shaking. Patient describes having intermittent episodes of legs shaking, ringing in ears, alternating between feeling hot/cold, sweats, and clamminess since 01/07/24. Of note, patient reports that she had similar episodes in April 2023 and a few months ago, for which she was seen in the ED both times. Patient says that these episodes had been attributed to panic attacks, noting that with those episodes her fingers reflexively curled inwards. Patient says that she had blood work done by her PCP at [facility] about 2 weeks ago, which she says showed elevated thyroid function and a positive FOX. While patient says that her symptoms feel similarto these past panic attacks, given this recent workup, she thought she should come to the ED for evaluation. Patient describes some sharp abdominal pain, similar to some previous ovarian cysts. Of note, patient says that she called her OBGYN on 01/08/24 and was advised to come to the ED, but she waited to come in until today. Patient also reports that she has had UTI symptoms since 12/29/23 for which she as started on Cipro, but she denies any improvement (despite still taking the Cipro). Patient says that a urine culture drawn by her PCP came back negative, but that her PCP told her that her kidneys felt inflamed on a recent physical exam. Patient does note that she has had chronic urinary incontinence for about a year, including 3 episodes today. Patient also describes some chronic nausea, tiredness, and brain fog. Patient's partner says that the patient seemed to have some improvement of these last night after eating a fruit roll-up, but patient says that eating sugar did not seem to help as much today. 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 Patient says that she has multiple herniated discs, and up until her workup a few weeks ago, she had thought this might have been the cause of her chronic symptoms. Patient says that her PCP has scheduled her for a colposcopy after an unusual pap smear. Patient also reports that her PCP was able toget her in with Rheumatology, but as her appointment is not until October 2024, she is also in the process of being referred to [facility]. History was provided by: Patient, patient's partner Records reviewed include: [facility] Labs (12/27/23) - TSH 6.25. Positive FOX. [facility] Labs (01/05/24) - Urine culture grew less than 10,000 CFU/ml usual urogenital tomy (negative culture). [facility] Women's Services telephone encounter (01/08/24) - Patient had called to report 10 days of urinary incontinence along with seizure like activity the preceding evening. Patient also had a recentnegative urine culture. Patient was advised to present to the ED given her neurological symptoms. [facility] Spine program office visit (12/29/23) - See copied review of patient's recent imaging as follows: thoracic MRI dated November 14, 2023. Showing normal bony alignment. Disc protrusions at T5-6, T6-7, T8-T9 and disc bulging at T7-T8. Flattening of the ventral aspect at the site of spinal cord secondary to disc degeneration at T5-6, T6-7, [...] the coccygeal segments seen on lateral view. Patient's pertinent PMH, FH, SH were reviewed and edited as necessary. Nursing notes reviewed. A medical screening exam was performed. Physical Exam BP 126/73 Pulse 100 Temp 37 ??C (98.6 ??F) Resp 23 Ht 160 cm (63) Wt 56.2 kg (124 lb) SpO2 99% BMI 21.97 kg/m?? Physical Exam Nursing note and initial vital signs reviewed. Gen: Thin, anxious appearing. Head: Normocephalic and atraumatic HEENT: no scleral icterus, no conjunctival pallor or injection Neck: supple, FROM, NT Heart: RRR, radial pulses equal Lungs: no respiratory distress, CTA bilat, no wheezes, rales, or rhonchi Abd: Mild right CVA tenderness to palpation. Right lower quadrant and suprapubic tenderness to palpation without guarding. Ext: no cyanosis or clubbing, no edema noted, no obvious sign of trauma, calves symmetrical and nontender Neuro: alert, conversant, nl eye contact and movements, nl speech, grossly normal strength bilaterally. No clonus. Psych: appropriate mood and affect, not responding to internal stimuli Back: no tenderness in the midline Skin: warm and dry, no concerning rashes or lesions on limited exam Procedures Procedures Note has been documented by Surya Corbett on 01/11/2024 documented in this encounter Plan of Treatment Upcoming Encounters Date Type Department Care Team (Late st Contact Info) Description 11/18/2024 8:15 EST Office Visit [facility] Pelvic Medicine and Reconstructive Surgery - Medical Office Building [facility] [address] [place] [address] Julia Terrell PA-C [address] [place] [address] Medical Office Building, [address] [place] [phone] 11/25/2024 8:00 EST Rehab Therapy Visit [facility] Rehabilitation Therapy - Medical Office Building [address] [place] [address] Cira Jackson DPT [address] [place] [address], [address] [place] [phone] 12/02/2024 8:00 EST Rehab Therapy Visit [facility] Rehabilitation Therapy - Medical Office Building [address] [place] [address] Cira Jackson DPT [address] [place] [address], [facility], [address] [place] [phone] 12/09/2024 8:00 EST Rehab Therapy Visit [facility] Rehabilitation Therapy - Medical Office Building [address] [place] [address] Cira Jackson DPT [address] [place] [address], [facility], [address] [place] [phone] 12/16/2024 9:00 EST Rehab Therapy Visit [facility] Rehabilitation Therapy - Medical Office Building [address] [place] [address] Cira Jackson DPT [address] [place] [address], [facility], [address] [place] [phone] 12/23/2024 9:00 EST Rehab Therapy Visit [facility] Rehabilitation Therapy - Medical Office Building [address] [place] [address] Cira Jackson, DPT [address] [facility], [address] [place] [address] documented as of this encounter Procedures Procedure Name Priority Date/Time Associated Diagnosis Comments ECG REPORT - SCANNED 01/15/2024 15:24 EDT US PELVIS TRANSABDOMINAL AND TRANSVAGINAL COMPLETE WITH LIMITED DUPLEX STAT 01/11/2024 0:30 EDT URINE CHEMICAL (DIP) & SEDIMENT (MICRO) WITH REFLEX TO CULTURE STAT 01/11/2024 0:22 EDT TEST, URINE STAT 01/11/2024 0:22 EDT EKG 12-LEAD STAT 01/10/2024 23:26 EDT POCT GLUCOSE, INTERFACED STAT 01/10/2024 23:13 EDT HOLD SST Routine 01/10/2024 23:10 EDT HOLD LAVENDER TOP Routine 01/10/2024 23: 10 EDT HOLD GREEN TOP Routine 01/10/2024 23:10 EDT HOLD BLUE TOP Routine 01/10/2024 23:10 EDT EXTRA BLOOD DRAW (RAINBOW) Routine 01/10/2024 23:10 EDT COMPLETE BLOOD COUNT AND DIFFERENTIAL STAT Add-on 01/10/2024 23:10 EDT MAGNESIUM STAT Add-on 01/10/2024 23:10 EDT CK STAT Add-on 01/10/2024 23:10 EDT COMPREHENSIVE METABOLIC PANEL (CMP) STAT Add-on 01/10/2024 23:10 EDT documented in this encounter Results * ECG REPORT - SCANNED (01/15/2024 15:24 EDT) 01/15/2024 15:2 4 EDT us Scan 2 Ceramic Chemist PROCEDURE/MINOR SURGICAL OR DERABLES Final Result * US PELVIS TRANSABDOMINAL AND TRANSVAGINAL COMPLETE WITH LIMITED DUPLEX (01/11/2024 0:30 EDT) Anatomical Region Laterality Modality Pelvis, Body Ultrasound 01/11/2024 9:09 EDT Impressions 01/11/2024 9:09 EDT Findings/Impression: Right ovary: Arterial and venous [...] There is a right ovarian cyst measuring 2.8 x 1.8 x 2.0 cm, internally this contains retractile clot and lacelike internal echoes Left ovary: The left ovary measures 2.1 x 1.6 x 2.1 cm in size, for an estimated left ovarian volume of 3.9 mL. No concerning lesion Cervix: Nabothian cysts are present Free fluid: There is a small amount of simple free fluid in the pelvis. Other Findings: None. IMPRESSION: 1. ??There is a 2.8 cm hemorrhagic right ovarian cyst. Lesion in the ovary may serve as a lead point for ovarian torsion. Despite the presence of flow in the ovary, if there is clinical concern for ovarian torsion, gynecology consultation is recommended. 2. ??Small volume free fluid in the pelvis. I have personally reviewed the images and the above interpretation and agree with the findings. [id number] Narrative 01/11/2024 9:09 EDT US PELVIS TRANSABDOMINAL AND TRANSVAGINAL COMPLETE WITH LIMITED DUPLEX ??01/11/2024 12:30 AM SIGNS AND SYMPTOMS/COMMENTS: RLQ pain; COMPARISON: Pelvic ultrasound May 10, 2023. MRI female pelvis September 07, 2023.. DUPLEX: Indication for Duplex: Concern for ovarian torsion and/or mass Technique: Color and spectral Doppler ultrasound of the pelvis was performed. Procedure Note Karson Tomlin MD - 01/11/2024 US PELVIS TRANSABDOMINAL AND TRANSVAGINAL COMPLETE WITH LIMITED DUPLEX01/11/2024 12:30 AM SIGNS AND SYMPTOMS/COMMENTS: RLQ pain; COMPARISON: Pelvic ultrasound May 10, 2023. MRI female pelvis 2022.. DUPLEX: Indication for Duplex: Concern for ovarian torsion and/or mass Technique: Color and spectral Doppler ultrasound of the pelvis wasperformed. IMPRESSION Findings/Impression: Right ovary: Arterial and venous Doppler waveforms and color flow arepresent in the right ovary. Left ovary: Arterial and venous Doppler waveforms and color flow arepresent in the left ovary. IMPRESSION: normal duplex GRAYSCALE: Technique: Grayscale ultrasound of the pelvis was performed, firsttransabdominally, and then transvaginally. Indication for Grayscale: RLQ pain; Findings: LMP: Approximately 2 weeks prior. Negative urine testdocumented. Uterus: The anteverted uterus measures 8.3 x 4.4 x 5.3 cm in size. Thereis no focal myometrial abnormality. Endometrium: The hyperechoic endometrium measures 1.3 cm in doubleendometrial stripe thickness, which is within normal limits. No focalthickening. Right ovary: The right ovary measures 4.4 x 2.1 x 3.8 cm in size, for anestimated right ovarian volume of 19 mL. There is a right ovarian cystmeasuring 2.8 x 1.8 x 2.0 cm, internally this contains retractile clot andlacelike internal echoes Left ovary: The left ovary measures 2.1 x 1.6 x 2.1 cm in size, for anestimated left ovarian volume of 3.9 mL. No concerning lesion Cervix: Nabothian cysts are present Free fluid: There is a small amount of simple free fluid in the pelvis. Other Findings: None. IMPRESSION: 1. There is a 2.8 cm hemorrhagic right ovarian cyst. Lesion in the ovarymay serve as a lead point for ovarian torsion. Despite the presence offlow in the ovary, if there is clinical concern for ovarian torsion,gynecology consultation is recommended. 2. Small volume free fluid in the pelvis. I have personally reviewed the images and the above interpretation andagree with the findings. [id number] Martha Keyes MD MPH IMG OB ORDERABLES Milena l Result * TEST, URINE (01/11/2024 0:22 EDT) Test, Urine Negative Negative 01/11/2024 0:36 EDT [facility] Comment:False negative resul ts may occur in women who are beyond 5-8 weeks gestation. Diagnosis of should be based on a correlation of test results with typical clinical signs and symptoms. Urine URINE SPECIMEN OBTAINED BY CLEAN CATCH PROCEDURE / Unknown Urine Collect / Unknown 01/11/2024 0:22 EDT 01/11/2024 0:25 EDT Martha Keyes MD MPH URINALYSIS ORDERABLES Fin al Result [facility] [address] [place] [phone] * (ABNORMAL) UA CHEMICAL & SEDIMENT + REFLEX TO CULTURE (01/11/2024 0:22 EDT) Color UA Yellow Colorless, Yellow 01/11/2024 0:35 EDT [facility] Clarity UA Cloudy(A) Clear 01/11/2024 0:35 [facility] Glucose UA Negative Negative mg/dL 01/11/2024 0:35 [facility] Bilirubin UA Negative Negative 01/11/2024 0:35 [facility] Ketones UA 2+(A) Negative 01/11/2024 0:35 [facility] Specific Moon, Urine 1.007 1.001 - 1.030 01/11/2024 0:35 [facility] Blood UA Negative Negative 01/11/2024 0:35 [facility] Urobilinogen UA 0.2 0.2-1.0 mg/dL mg/dL 01/11/2024 0:35 [facility] Nitrite UA Negative Negative 01/11/2024 0:35 [facility] Leukocyte Esterase UA Negative Negative 01/11/2024 0:35 [facility] Protein UA Negative Negative mg/dL 01/11/2024 0:35 [facility] pH, UA 5.5 <8.5 01/11/2024 0:35 [facility] Urine RBC Count, Auto 0 - 2 0 - 2 Cells/HPF 01/11/2024 0:35 [facility] Urine WBC Count, Auto 0 - 3 0 - 3 Cells/HPF 01/11/2024 0:35 [facility] Urine Squamous Count, Auto None Seen None Seen Cells/HPF 01/11/2024 0:35 [facility] Urine Hyaline Cast Count, Auto <=10 <=10 Casts/LPF 01/11/2024 0:35 [facility] Urine Bacteria Count, Auto None Seen None Seen Bacteria/HPF 01/11/2024 0:35 [facility] Urine URINE SPECIMEN OBTAINED BY CLEAN CATCH PROCEDURE / Unknown Urine Collect / Unknown 01/11/2024 0:22 EDT 01/11/2024 0:25 EDT [facility] LABORATORY SERVICES - 01/11/2024 0:35 EDT NOTE: Reflex to Urine Culture test is not indicated based on Urine Sediment Analysis results. Urine Sediment Analysis results are unreliable on urines that are unrefrigerated for >2 hrs or refrigerated >8 hrs. us Martha Keyes MD MPH URINALYSIS ORDERABLES Fin al Result [facility] [address] [place] [address] * EKG 12-LEAD (01/10/2024 23:26 EDT) 01/10/2024 23:2 6 EDT Narrative [facility] EKG - 01/15/2024 15:13 EDT ?[facility] Emergency ? Test Date: ?2024-01-10 Pat Name: ? MINE LYNN ?Department: ?? ED ? Room: ? GT35 Gender: ? Female ? Application Support: ?? [id number] : ?1990 ? Requested By: ROSAS BARILLAS Order Number: [id number] ? Samira GODOY: ?? DC JIMENEZ MD ? Measurements Intervals ?[place] ? Rate: ? 76 ? P: ?75 MT: ? 107 ?QRS: ?81 QRSD: ? 81 ? T: ?65 QT: ? 368 ? QTc: ?415 ? Interpretive Statements SINUS RHYTHM WITH SHORT MT INTERVAL NONSPECIFIC T-WAVE ABNORMALITY Automated Interpretation. ??Provider Interpretation to follow. No previous ECG available for comparison I reviewed the tracing and have either agreed or edited the findings in this report. Electronically Signed On 01-15-2024 15:13:08 EDT by DC JIMENEZ MD. Procedure Note Dc Jimenez MD - 01/15/2024 [facility] Emergency Test Date: 2024-01-10 Pat Name: MINE LYNN Department: ED Room: [facility] Gender: Female Application Support: [id number] : 1990 Requested By: ROSAS BARILLAS Order Number: [id number] Reading MD: DC JIMENEZ MD Measurements Intervals [place] Rate: 76 P: 75 MT: 107 QRS: 81 QRSD: 81 T: 65 QT: 368 QTc: 415 Interpretive Statements SINUS RHYTHM WITH SHORT MT INTERVAL NONSPECIFIC T-WAVE ABNORMALITY Automated Interpretation. Provider Interpretation to follow. No previous ECG available for comparison I reviewed the tracing and have either agreed or edited the findings inthis report. Electronically Signed On 01-15-2024 15:13:08 EDT by DC BOLANOS. us Leann Hunter MD CARDIAC ECG ORDERABLES Final Res ult Performing Organization Address City/[facility]/ZIP Co de Phone Number [facility] EKG * POCT GLUCOSE, INTERFACED (01/10/2024 23:13 EDT) [facility] Glucose, POC 98 70 - 100 mg/dL 01/10/2024 23:14 EDT [facility] LABORATORY SERVICES HN LAB POC COMMENT (GLUCOSE) Test Performed by Nursing Services 01/10/2024 23:14 EDT [facility] Blood CAPILLARY BLOOD / Unknown 01/10/2024 23:13 EDT 01/10/2024 23:14 EDT us Leann Hunter MD POINT OF CARE TEST ORDERABLES Fi nal Result Performing Organization Address [facility] Co de Phone Number [facility] [address] [place] [address] * MAGNESIUM (01/10/2024 23:10 EDT) [facility] Magnesium 1.9 1.7 - 2.8 mg/dL 01/10/2024 23:30 EDT [facility] Blood VENOUS BLOOD / Unknown Venipuncture / Unknown 01/10/2024 23:10 EDT 01/10/2024 23:14 EDT us Martha Keyes MD MPH CHEMISTRY & BLOOD GAS ORD ERABLES Final Result Performing Organization Address [facility]/ZIP Co de Phone Number [facility] [address] [place] [address] * (ABNORMAL) COMPREHENSIVE METABOLIC PANEL (CMP) (01/10/2024 23:10 EDT) [facility] Sodium 140 136 - 145 mmol/L 01/10/2024 23:30 [facility] Potassium 3.3(L) 3.5 - 5.0 mmol/L 01/10/2024 23:30 [facility] Chloride 107 96 - 110 mmol/L 01/10/2024 23:30 [facility] CO2 Total 18(L) 22 - 32 mmol/L 01/10/2024 23:30 [facility] Glucose 92 70 - 99 mg/dl 01/10/2024 23:30 [facility] BUN 8(L) 10 - 26 mg/dL 01/10/2024 23:30 [facility] Creatinine 0.55 0.52 - 1.04 mg/dL 01/10/2024 23:30 [facility] eGFR 123 >60 mL/min/1.7 3m2 01/10/2024 23:30 [facility] Total Protein 9.1(H) 6.3 - 8.2 g/dL 01/10/2024 23:30 [facility] Albumin 5.2(H) 3.4 - 4.9 g/dL 01/10/2024 23:30 [facility] Alkaline Phosphatase 54 38 - 126 U/L 01/10/2024 23:30 [facility] AST 36 15 - 46 U/L 01/10/2024 23:30 [facility] ALT 15 <35 U/L 01/10/2024 23:30 [facility] Bilirubin, Total 1.8(H) <1.4 mg/dL 01/10/20 23:30 [facility] Calcium 9.7 8.5 - 10.5 mg/dL 01/10/2024 23:30 [facility] Albumin/Globulin Ratio 1.3 1.0 - 2.5 01/10/2024 23:30 [facility] Anion Gap 15(H) 5 - 14 mmol/L 01/10/2024 23:30 [facility] Blood VENOUS BLOOD / Unknown Venipuncture / Unknown 01/10/2024 23:10 EDT 01/10/2024 23:14 EDT us Martha Keyes MD MPH CHEMISTRY & BLOOD GAS ORD ERABLES Final Result [facility] [address] [place] [address] * (ABNORMAL) COMPLETE BLOOD COUNT AND DIFFERENTIAL (01/10/2024 23:10 EDT) WBC 6.45 4.00 - 12.40 K/cmm 01/10/2024 23:21 [facility] RBC 4.58 3.86 - 5.04 M/cmm 01/10/2024 23:21 [facility] Hemoglobin 13.9 11.6 - 15.2 g/dL 01/10/2024 23:21 [facility] HCT 39.8 34.9 - 44.4 % 01/10/2024 23:21 [facility] MCV 87 81 - 98 fL 01/10/2024 23:21 [facility] MCH 30.3 26.7 - 33.3 pg 01/10/2024 23:21 [facility] MCHC 34.9 32.1 - 35.9 g/dL 01/10/2024 23:21 [facility] RDW-CV 12.5 <14.7 % 01/10/2024 23:21 [facility] RDW-SD 39.7 <50.4 fl 01/10/2024 23:21 [facility] PLT 301 141 - 377 K/cmm 01/10/2024 23:21 [facility] MPV 10.3 9.5 - 12.7 fL 01/10/2024 23:21 [facility] % Neutrophils 59.1 % 01/10/2024 23:21 [facility] % Lymphocytes 32.6 % 01/10/2024 23:21 [facility] % Monocytes 7.6 % 01/10/2024 23:21 [facility] % Eosinophils 0.2 % 01/10/2024 23:21 [facility] % Basophils 0.3 % 01/10/2024 23:21 [facility] % Immature Grans 0.2 % 01/10/20 23:21 [facility] Absolute Neutrophils 3.82 2.20 - 8.85 K/cmm 01/10/2024 23:21 [facility] Absolute Lymphocytes 2.10 1.09 - 3.30 K/cmm 01/10/2024 23:21 [facility] Absolute Monocytes 0.49 0.10 - 0.80 K/cmm 01/10/2024 23:21 [facility] Absolute Eosinophils 0.01(L) 0.03 - 0.61 K/cmm 01/10/2024 23:21 [facility] ABS Basophils 0.02 0.01 - 0.11 K/cmm 01/10/2024 23:21 [facility] Absolute Immature Grans 0.01 0.00 - 0.06 K/cmm 01/10/2024 23:21 [facility] Type of Differential: Auto 01/10/2024 23:21 [facility] Blood VENOUS BLOOD / Unknown Venipuncture / Unknown 01/10/2024 23:10 EDT 01/10/2024 23:14 EDT us Martha Keyes MD MPH PACKAGES & DNA PROBE RITA PHAN Final Result [facility] [address] [place] [address] * CK (01/10/2024 23:10 EDT) CK 54 30 - 135 U/L 01/10/2024 23:30 [facility] Blood VENOUS BLOOD / Unknown Venipuncture / Unknown 01/10/2024 23:10 EDT 01/10/2024 23:14 EDT us Martha Keyes MD MPH CHEMISTRY & BLOOD GAS ORD ERABLES Final Result [facility] [address] [place] [address] * HOLD BLUE TOP (01/10/2024 23:10 EDT) Hold Hold 01/11/2024 0:31 EDT [facility] Blood VENOUS BLOOD / Unknown Venipuncture / Unknown 01/10/2024 23:10 EDT 01/10/2024 23:18 EDT us Leann Hunter MD LAB INFO SERVICE AND SUPPORT & P HOLLIE RESULT Final Result Performing Organization Address City/[facility]/ZIP Co de Phone Number [facility] [address] [place] [address] * HOLD [facility] (01/10/2024 23:10 EDT) Hold Hold 01/11/2024 0:15 EDT [facility] Blood VENOUS BLOOD / Unknown Venipuncture / Unknown 01/10/2024 23:10 EDT 01/10/2024 23:14 EDT Leann Hunter MD LAB INFO SERVICE AND SUPPORT & P HOLLIE RESULT Final Result [facility] [address] [place] [address] * HOLD LAVENDER TOP (01/10/2024 23:10 EDT) Hold Hold 01/11/2024 0:15 EDT [facility] Blood VENOUS BLOOD / Unknown Venipuncture / Unknown 01/10/2024 23:10 EDT 01/10/2024 23:14 EDT us Leann Hunter MD LAB INFO SERVICE AND SUPPORT & P HOLLIE RESULT Final Result [facility] [address] [place] [address] * HOLD GREEN TOP (01/10/2024 23:10 EDT) Hold Hold 01/11/2024 0:15 EDT [facility] Blood VENOUS BLOOD / Unknown Venipuncture / Unknown 01/10/2024 23:10 EDT 01/10/2024 23:14 EDT us Leann Hunter MD LAB INFO SERVICE AND SUPPORT & P HOLLIE RESULT Final Result Performing Organization Address [facility] de Phone Number [facility] [address] [place] [address] documented in this encounter Visit Diagnoses Diagnosis Cyst of right ovary- Primary Other and unspecified ovarian cyst Dehydration Hypokalemia Hypopotassemia documented in this encounter Administered Medications Inactive Administered Medications - up to 3 most recent administrations Medication Order MAR Action Action Date Dose Rate Site HYDROcodone-acetaminophen (NORCO) 5-325 mg tablet 1 Tablet 1 Tablet, oral, NOW X1, 1 dose, On Mon01/11/24 at 0245, STAT Given 01/11/2024 2:51 EDT 1 Tablet lactated ringers BOLUS 1,000 mL 1,000 mL, intravenous, NOW X1, 1 dose, On Mon01/11/24 at 0130, STAT New Bag 01/11/2024 1:25 EDT 1,000 mL LORazepam (ATIVAN) tablet 0.5 mg 0.5 mg, oral, NOW X1, 1 dose, On Mon01/10/24 at 2330, STAT Given 01/10/2024 23:27 EDT 0.5 mg magnesium sulfate 2 g in water 50 mL 2 g, intravenous, Administer over 60 Minutes, NOW X1, 1 dose, On Mon01/11/24 at 0130, STAT New Bag 01/11/2024 1:25 EDT 2 g potassium chloride (KLOR-CON) packet 40 mEq 40 mEq, oral, NOW X1, 1 dose, On Renee 01/11/24 at 0130, STAT Given 01/11/2024 1:25 EDT 40 mEq documented in this encounter Active and Recently Administered Medications Times are shown in EDT. Scheduled Medication Order 01/09/2024 01/10/2024 01/11/2024 HYDROcodone-acetaminophen (NORCO) 5-325 mg tablet 1 Tablet (COMPLETED) 1 Tablet, oral, NOW X1, 1 dose, On Renee 01/11/24 at 0245, STAT 0251 (Given - Provid er: Sharee Rodriguez RN) lactated ringers BOLUS 1,000 mL (COMPLETED) 1,000 mL, intravenous, NOW X1, 1 dose, On Renee 01/11/24 at 0130, STAT 0125 (New Bag - Provider: Sharee Rodriguez RN)0245 (Completed - Provider: Sharee Rodriguez RN) LORazepam (ATIVAN) tablet 0.5 mg (COMPLETED) 0.5 mg, oral, NOW X1, 1 dose, On Mon01/10/24 at 2330, STAT 2327 (Given - Provider: Shaere Rodriguez RN) magnesium sulfate 2 g in water 50 mL (COMPLETED) 2 g, intravenous, Administer over 60 Minutes, NOW X1, 1 dose, On Renee 01/11/24 at 0130, STAT 0125 (New Bag - Provider: Sharee Rodriguez RN)0225 (Completed - Provider: Sharee Rodriguez RN) potassium chloride (KLOR-CON) packet 40 mEq (COMPLETED) 40 mEq, oral, NOW X1, 1 dose, On Renee 01/11/24 at 0130, STAT 0125 (Given - Provid er: Sharee Rodriguez RN) documented in this encounter Care Teams Dope House Operator Helper Relationship Specialty Start Date End Date Ariana Dill DNP [address] [place], [place] [address] PCP - General 08/07/23 Rach Waddell MD [address] [place] [address] [address] [place] [address] Director Software Quality Assurance Obstetrics and Gynecology 05/10/23 documented as of this encounter
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
--- OUTSIDE RECORDS SUMMARY | 2024-11-10 02:16 | XMS_ITS | Encounter Summary ---
Author Organization [facility] Address [address] [place] [address] Care Team Providers Care Train Planner Name Role Phone None, Provider Primary Care Provider Rach Stacy MD Unavailable [phone] Reason for Visit * Reason Comments Gynecologic Exam Encounter Details Date Type Department Care Team (Late st Contact Info) Description 05/26/2023 13:45 EDT Office Visit [facility] OBGYN Services - [address] [phone] Rach Waddell MD [address] [place] [address], [address] [place] [address] Encounter for test, result unknown (Primary Dx); Screening for cervical cancer; Pelvic pain Social History Tobacco Use Types Packs/Day Years [...] 9:04 EST Sexual Orientation Not on file COVID-19 Exposure Response Date Recorded In the last 10 days, have pamela landin been in contact with someone who was confirmed or suspected to have Coronavirus/COVID-19? No / Unsure 05/10/2023 15:50 EDT documented as of this encounter Last Filed Vital Signs Vital Sign Reading Time Taken Comments Blood Pressure 106/62 05/26/2023 1408 EDT Pulse - - Temperature - - Respiratory Rate - - Oxygen Saturation - - Inhaled Oxygen Concentration - - Weight - - Height - - Body Mass Index - - documented in this encounter Functional Status * Are you deaf or do you have serious difficulty hearing? Answer Date of Assessment Author No 10/27/2021 8:27 Lois Vgea RN * Are you blind or do [...] Refills Last Filled Start Date End Date ethynodiol-ethinyl estradiol (ZOVIA 1-35, 28,) 1-35 mg-mcg per tablet Take 1 Tablet by mouth daily for 90 days. 90 Tablet 4 05/26/2023 08/24/2023 phenazopyridine (PYRIDIUM) 100 mg tablet Take 1 Tablet by mouth 3 times daily as needed for up to 7 days for Pain. 21 Tablet 2 05/26/2023 06/02/2023 metroNIDAZOLE (FLAGYL) 500 mg tablet Take 1 Tablet by mouth 2 times daily for 7 days. 14 Tablet 05/26/2023 06/02/2023 documented in this encounter Progress Notes * Rach Waddell MD - 05/26/2023 7255 EDT CC: Annual exam HPI: 32 y.o. woman presents for routine annual exam. Patient reports thinks pelvic pain might begetting better, still has BV symptoms. No LMP recorded. Better pelvic pain. No vaginal discharge. Sexually active with male. Using nothing for contraception. ROS: Stopped OCP ROS Denies bowel or bladder sx.(has Neurology appointment for urinary loss, MRI scheduled) No CP/SOB/leg pain. No abdominal pain, N/V/D/C. No hair loss, or heat/cold intolerance. No musculoskeletal pain. No mood changes. No breast pain or tenderness. Health Maintenance: Reports balanced diet, taking vitamins. Performs regular self-breast exams. Seat belts: Always Past Medical History: Diagnosis Date ??? Anxiety, generalized Ativan intermittently during ??? Pelvic floor dysfunction Past Surgical History: Procedure Laterality Date ??? OTHER SURGICAL HISTORY 2008 Excision of periurethral cysts at [facility] Current Outpatient Medications Medication ??? acetaminophen (TYLENOL) 500 mg tablet ??? albuterol 90 mcg/actuation inhaler ??? docusate sodium (COLACE) 100 mg capsule ??? HYDROcodone-acetaminophen (NORCO) 5-325 mg tablet ??? HYDROcodone-acetaminophen (NORCO) 5-325 mg tablet ??? inhalational spacing device (BREATHERITE MDI SPACER) ??? levonorgestrel-ethinyl estradiol (NORDETTE) 0.15-0.03 mg per tablet ??? lidocaine 5 % (LIDODERM) 5 % patch ??? polyethylene glycol 3350 (MIRALAX) 17 gram packet ??? sertraline (ZOLOFT) 25 mg tablet No current facility-administered medications for this visit. Allergies Allergen Reactions ??? Imitrex [Sumatriptan Succinate] Shortness Of Breath POBHx: PGynHx: Menses: see HPI Contraception: see HPI STDs: reschedule OCTAVIO Pap: today Social History Socioeconomic History ??? Marital status: Single Spouse name: Not on file ??? Number of children: Not on file ??? Years of education: Not on file ??? Highest education level: Not on file Occupational History ??? Not on file Tobacco Use ??? Smoking status: Never ??? Smokeless tobacco: Never Vaping Use ??? Vaping Use: Never used Substance and Sexual Activity ??? Alcohol use: No Comment: social ??? Drug use: No ??? Sexual activity: Not on file Other Topics Concern ??? Not on file Social History Narrative ??? Not on file Social Determinants of Health Financial Resource Strain: Not on file Food Insecurity: Not on file Transportation Needs: Not on file Physical Activity: Not on file Stress: Not on file Social Connections: Not on file Housing Stability: Not on file Family History Problem Relation Age of Onset ??? Asthma Mother ??? Hypertension Father PE: BP 106/62 No GEN: NAD, pleasant ABD: +BS, soft, NT, ND. No masses EXT: NT, No edema, normal ROM. NEURO: AAO x3, normal mood and affect. Parking Meter Installer: BREAST: No palpable masses or tenderness. No visible lesions. PELVIC: Normal appearing external genitalia without notable discharge or lesions. Speculum exam reveals normal appearing cervix without lesions or discharge. No bleeding. Bimanual exam reveals anteverted non-tender uterus, no cervical motion tenderness, no adnexal tenderness or masses. No urethral a bnormalities, tenderness or masses noted A/P: BTB on OCP Check pap, restart OCP. Restart Flgyl. OCTAVIO for chlamydia for patient can be done in 3 weeks or so. (patient requests) Partner still needs treatment. Rach Waddell MD 05/26/2023 14:29 documented in this encounter Miscellaneous Notes * Result Encounter Note - Rach Waddell MD - 05/26/2023 7201 EDT Normal cytology, positive HPV Result documented in this encounter Plan of Treatment Upcoming Encounters Date Type Department Care Team (Late st Contact Info) Description 11/18/2024 8:15 EST Office Visit [facility] Pelvic Medicine and Reconstructive Surgery - Medical Office Building [facility] [address] [place] [address] Julia Terrell PA-C [address] [facility] Medical Office Building, [address] [place] [phone] 11/25/2024 8:00 EST Rehab Therapy Visit [facility] Rehabilitation Therapy - Medical Office Building [address] [place] [phone] Cira Jackson DPT [address] [place] [address], [facility], [address] [place] [phone] 12/02/2024 8:00 EST Rehab Therapy Visit [facility] Rehabilitation Therapy - Medical Office Building [address] [place], [place] [phone] Cira Jackson DPT [address] [place] [address], [facility], [address] [place] [phone] 12/09/2024 8:00 EST Rehab Therapy Visit [facility] Rehabilitation Therapy - Medical Office Building [address] [place] [address] Cira Jackson DPT [address] [place] [address], [facility], [address] [place] [phone] 12/16/2024 9:00 EST Rehab Therapy Visit [facility] Rehabilitation Therapy - Medical Office Building [address] [place] [address] Cira Jackson DPT [address] [place] [address], [facility], [address] [place] [address] 12/23/2024 9:00 EST Rehab Therapy Visit [facility] Rehabilitation Therapy - Medical Office Building [address] [place], [place] [phone] Cira Jackson, DPT [address] [facility], [facility], [address] [place] [address] documented as of this encounter Procedures Procedure Name Priority Date/Time Associated Diagnosis Comments MOLECULAR VAGINITIS/VAGINOSIS ASSAY Routine 05/26/2023 14:50 EDT Pelvic pain PAP TEST Routine 05/26/2023 14:50 EDT Screening for cervical cancer HPV GENOTYPES 16 AND 18/45 Today 05/26/2023 14:50 EDT Screening for cervical cancer HPV DNA DETECTION WITH GENOTYPING, PCR Today 05/26/2023 14:50 EDT Screening for cervical cancer POCT TEST, CLINITEK Routine 05/26/2023 14:24 EDT Encounter for test, result unknown POCT CSN BARCODE URINE PREG TEST Routine 05/26/2023 14:22 EDT Encounter for test, result unknown POCT TEST, CLINITEK ORDER Routine 05/26/2023 14:22 EDT Encounter for test, result unknown documented in this encounter Results * HPV GENOTYPES 16 AND 18/45 (05/26/2023 14:50 EDT) HPV High Risk type 16, PCR Negative Negative 06/07/2023 13:42 EDT [facility] HPV18/45 RNA (HPV18/45) Negative Negative 06/07/2023 13:42 EDT [facility] Pap Test CERVIX UTERI STRUCTURE / Unknown 05/26/2023 14:50 EDT 06/02/2023 11:21 EDT Rach Waddell MD MICROBIOLOGY - GENERAL ORDER JANI Final Result Performing Organization Address [facility] Co de Phone Number [facility] [address] [place] [address] * (ABNORMAL) HUMAN PAPILLOMAVIRUS (HPV) DETECTION-HIGH RISK TYPES (05/26/2023 14:50 EDT) HPV other High Risk types, PCR Positive( A) Negative 06/06/2023 22:47 EDT [facility] Comment:E6 OR E7 mRNA from o ne or more types of HPV types 16,18,31,33,35,39,45,51,52,56,58,59,66, and 68 is detected by blindstitch lapel padder mediated amplification. High and intermediate risk HPV types are associated with most squamous intraepithelial lesions and cervical cancers. Pap Test CERVIX UTERI STRUCTURE / Unknown 05/26/2023 14:50 EDT 06/02/2023 11:21 EDT Rach Waddell MD MICROBIOLOGY - GENERAL ORDER JANI Final Result Performing Organization Address [facility] Co de Phone Number [facility] [address] [place] [address] * (ABNORMAL) MOLECULAR VAGINITIS/VAGINOSIS ASSAY (05/26/2023 14:50 EDT) Celi Species Positive(A) Negative 05/27/20 14:31 EDT [facility] Celi glabrata Negative Negative 05/27/2023 14:31 EDT [facility] Trichomonas Vaginalis Negative Negative 05/27/2023 14:31 EDT [facility] BV (Bacterial vaginosis) Negative Negative 05/27/2023 14:31 EDT [facility] Swab ENTIRE VAGINA / Unknown Swab / Unknown 05/26/2023 14:50 EDT 05/26/2023 16:11 EDT us Rach Waddell MD MICROBIOLOGY - GENERAL ORDER JANI Final Result [facility] [address] [place] [address] * PAP TEST (05/26/2023 14:50 EDT) Specimens A. Cervix and/or Endocervix , ThinPrep Imaging System with Manual Evaluation 06/12/2023 14:53 EDT [facility] Specimen Adequacy Satisfactory for Evaluation - transformation zone component present 06/12/2023 14:53 EDT [facility] General Categorization Negative for intraepithelial lesion or malignancy 06/12/2023 14:53 T [facility] Attestation . 06/12/2023 14:53 T [facility] at 1453 Clinical History last pap 2016 unsatisfactory 06/12/2023 14:53 EDT [facility] HPV The result for the Human Papillomavirus (HPV) Detection-High Risk Types is Positive . E6 OR E7 mRNA from one or more types of HPV types 16,18,31,33,35,39 ,45,51,52,56,58,5 9,66, and 68 is detected by blindstitch lapel padder mediated amplification. High and intermediate risk HPV types are associated with most squamous intraepithelial lesions and cervical cancers. Testing was performed on specimen [id number] and was resulted on 06/05/2023 1758 EDT by GELY, LAB INSTRUMENT RESULTS IN 06/12/2023 14:53 EDT [facility] Genotyping 16 & 18/45 The results for the HPV Genotypes 16 and 18/45 are Negative for the HPV16 RNA and Negative for the HPV18/45 RNA (HPV18/45). Testing was performed on specimen [id number] and was resulted on 06/06/2023 1858 EDT by GELY, LAB INSTRUMENT RESULTS IN 06/12/2023 14:53 EDT [facility] Performing Lab [facility] 06/12/2023 14:53 EDT [facility] Scanned Images 06/12/2023 14:53 EDT [facility] Pap Test CERVIX UTERI STRUCTURE / Unknown 05/26/2023 14:50 EDT 05/29/2023 11:55 EDT us Rach Waddell MD PATHOLOGY ORDERABLES Final R esult Performing Organization Address [facility] de Phone Number [facility] [address] [place] [address] * POCT TEST, CLINITEK (05/26/2023 14:24 EDT) UPT Result Negative Negative 05/26/2023 14:30 EDT [facility] HN LAB COMMENT (CLINITEK, UPT) Test performed at [facility] 05/26/2023 14:30 EDT [facility] Comment:False negative resul ts may occur in women who are beyond 5-8 weeks gestation. Diagnosis of should be based on a correlation of test results with typical clinical signs and symptoms. Urine URINE / Unknown 05/26/2023 1 4:24 EDT 05/26/2023 14:30 EDT us Rach Waddell MD POINT OF CARE TEST ORDERABLE S Final Result Performing Organization Address [facility] de Phone Number [facility] [address] [place] [address] * POCT CSN BARCODE URINE PREG TEST (05/26/2023 14:22 EDT) Urine URINE / Unknown 05/26/2023 1 4:22 EDT 05/26/2023 14:22 EDT us Rach Waddell MD LAB INFO SERVICE AND SUPPORT & PHONE RESULT Final Result [facility] [address] [place] [address] documented in this encounter Visit Diagnoses Diagnosis Encounter for test, result unknown- Primary Screening for cervical cancer Screening for malignant neoplasm of the cervix Pelvic pain documented in this encounter Discontinued Medications Medication Sig Discontinue Reason Start Date End Da te levonorgestrel-ethinyl estradiol (NORDETTE) 0.15-0.03 mg per tablet Take 1 Tablet by mouth daily. Alternate therapy 08/17/2022 05/26/2023 documented as of this encounter Care Teams Train Planner Relationship Specialty Start Date End Date None, Provider PCP - General 06/25/14 08/06/23 Rach Waddell MD [address] [facility] [address] [place] [address] Vegetable Harvest Machine Operator Obstetrics and Gynecology 05/10/23 documented as of this encounter
--- OUTSIDE RECORDS SUMMARY | 2024-11-10 02:16 | XMS_ITS | Encounter Summary ---
Author Organization [facility] Address [address] [place] [address] Care Team Providers Care Parachute Accessories Attacher Name Role Phone None, Provider Primary Care Provider Rach Stacy MD Unavailable [phone] Reason for Visit * Reason Onset Date Comments Medication Questions 08/02/2023 Advice Only 08/02/2023 Encounter Details Date Type Department Care Team (Late st Contact Info) Description 08/02/2023 Telephone [facility] OBGYN Services - [address] [phone] Rach Waddell MD [address] [facility], [address] [place] [address] Medication Questions ; Advice Only Social History Tobacco Use Types [...] Telephone Encounter - Alma Castro RN - 08/02/2023 1332 EDT TC to patient to inform her that Dr Waddell is out of the office until 08/03/23. She states that her Primary care doctors office is trying to connect with her regarding her pain management and that sheunderstands we would not be able to send a prescription at this time. * Telephone Encounter - Daniela Michael - 08/02/2023 1046 EDT Are you calling for gynecological, obstetric, or reproductive care? Gynecological Have you been seen here before? Yes If yes, who do you see? Dr. Waddell Reason for Call as described by patient: Currently being treated for a UTI at her new PCP's office @ [facility]. Has been experiencing high levels of pain, which has been treated with 800mg of ibuprofen as well as some other medications. Requests that someone from her care team reach out to discuss her pain management, as she has been out of work for 2 days, and expressed difficulty picking up her daughter. Transferred pt to [facility] to reschedule her imaging. What is the best phone number for us to reach you back at? [phone] Does this number have a voicemail, is it ok to leave a detailed message? Yes Daniela Michael 08/02/2023 10:46 documented in this encounter Plan of Treatment Upcoming Encounters Date Type Department Care Team (Late st Contact Info) Description 11/18/2024 8:15 EST Office Visit [facility] Pelvic Medicine and Reconstructive Surgery - Medical Office [facility] [address] [place] [address] Julia Terrell PA-C [address] [place] [address] Medical Office Building, [address] [place] [phone] 11/25/2024 8:00 EST Rehab Therapy Visit [facility] Rehabilitation Therapy - Medical Office Building [address] [place] [address] Cira Jackson DPT [address] [place] [address], [address] [place] [phone] 12/02/2024 8:00 EST Rehab Therapy Visit [facility] Rehabilitation Therapy - Medical Office Building [address] [place] [address] Cira Jackson DPT [address] [place] [address], [address] [place] [phone] 12/09/2024 8:00 EST Rehab Therapy Visit [facility] Rehabilitation Therapy - Medical Office Building [address] [place] [address] Cira Jackson, DPT [address] [place] [address], [facility], [address] [place] [phone] 12/16/2024 9:00 EST Rehab Therapy Visit [facility] Rehabilitation Therapy - Medical Office Building [address] [place] [address] Cira Jackson, DPT [address] [place] [address], [facility], [address] [place] [phone] 12/23/2024 9:00 EST Rehab Therapy Visit [facility] Rehabilitation Therapy - Medical Office [place] [address] [place] [address] Cira Jackson, DPT [address] [place] [address], [facility], [address] [place] [phone] documented as of this encounter Visit Diagnoses Not on filedocumented in this encounter Care Teams Parachute Accessories Attacher Relationship Specialty Start Date End Date None, Provider PCP - General 06/25/14 08/06/23 Rach Waddell MD [address] [place] [address] [address] [place] [phone] Soil Technician Obstetrics and Gynecology 05/10/23 documented as of this encounter
--- OUTSIDE RECORDS SUMMARY | 2024-11-10 02:16 | XMS_ITS | Encounter Summary ---
Author Organization [facility] Address [address] [place] [address] Care Team Providers Care Lookback Coordinator Name Role Phone None, Provider Primary Care Provider Unavailabl e Encounter Details Date Type Department Care Team (Late st Contact Info) Description 08/16/2022 Orders Only [facility] OBGYN Services - [address] [phone] Rach Waddell MD [address] [facility], [address] [place] [address] Social History Tobacco Use Types Packs/Day Years Used Date Smoking Tobacco: Never Smokeless Tobacco: Never Alcohol Use Standard Drinks/Week Comments No 0 (1 standard drink = 0.6 oz pur e alcohol) social PHQ-2 Answer Date Recorded PHQ-2 SUBTOTAL 0 10/27/2021 Interpersonal Safety Answer Date Record ed Physically [...] Refills Last Filled Start Date End Date HYDROcodone-acetam inophen (NORCO) 5-325 mg tablet Take 1 Tablet by mouth every 6 hours as needed for Pain. Daily Max: 4 Tablets 10 Tablet 08/16/2022 2 lidocaine 5 % (LIDODERM) 5 % patch APPLY 2 PATCH ON THE SKIN ONCE DAILY. MAY WEAR UP TO 12 HOURS 20 Patch 1 08/16/2022 2 documented in this encounter Progress Notes * Rach Waddell MD - 08/16/2022 1546 EDT See telephone encounter documented in this encounter Plan of Treatment Upcoming Encounters Date Type Department Care Team (Late st Contact Info) Description 11/18/2024 8:15 EST Office Visit [facility] Pelvic Medicine and Reconstructive Surgery - Medical Office [facility] [address] [place], [place] [phone] Julia Terrell PA-C [address] [facility] Medical Office Building, [address] [place] [phone] 11/25/2024 8:00 EST Rehab Therapy Visit [facility] Rehabilitation Therapy - Medical Office Building [address] [place] [address] Cira Jackson, DPT [address] [place] [address], [facility], [address] [place] [phone] 12/02/2024 8:00 EST Rehab Therapy Visit [facility] Rehabilitation Therapy - Medical Office Building [address] [place] [address] Cira Jackson, DPT [address] [place] [address], [address] [place] [phone] 12/09/2024 8:00 EST Rehab Therapy Visit [facility] Rehabilitation Therapy - Medical Office Building [address] [place] [address] Cira Jackson, DPT [address] [place] [address], [address] [place] [phone] 12/16/2024 9:00 EST Rehab Therapy Visit [facility] Rehabilitation Therapy - Medical Office Building [address] [place] [address] Cira Jackson, DPT [address] [place] [address], [address] [place] [phone] 12/23/2024 9:00 EST Rehab Therapy Visit [facility] Rehabilitation Therapy - Medical Office Building [address] [place] [address] Cira Jackson, DPT [address] [facility], [facility], [address] [place] [address] documented as of this encounter Visit Diagnoses Not on filedocumented in this encounter Discontinued Medications Medication Sig Discontinue Reason Start Date End Da te lidocaine 5 % (LIDODERM) 5 % patch APPLY 2 PATCH ON THE SKIN ONCE DAILY. MAY WEAR UP TO 12 HOURS Reorder 06/27/2022 08/16/2022 documented as of this encounter Care Teams Lookback Coordinator Relationship Specialty Start Date End Date None, Provider PCP - General 06/25/14 08/06/23 documented as of this encounter
--- OUTSIDE RECORDS SUMMARY | 2024-11-10 02:16 | XMS_ITS | Encounter Summary ---
Author Organization [facility] Address [address] [place] [address] Care Team Providers Care Heel Scourer Name Role Phone None, Provider Primary Care Provider Unavailabl e Reason for Visit * Reason Onset Date Comments Medications Refill 04/04/2023 Encounter Details Date Type Department Care Team (Late st Contact Info) Description 04/04/2023 Refill [facility] OBGYN Services - [address] [id number] Rach Waddell MD [address] [facility], [address] [place] [address] Medications Refill Social History Tobacco [...] Refills Last Filled Start Date End Date tolterodine (DETROL-LA) 2 mg long acting capsule Take 1 Capsule by mouth daily for 30 days. 30 Capsule 3 04/04/2023 3 lidocaine 5 % (LIDODERM) 5 % patch APPLY 2 PATCH ON THE SKIN ONCE DAILY. MAY WEAR UP TO 12 HOURS 20 Patch 1 04/04/2023 3 HYDROcodone-acetam inophen (NORCO) 5-325 mg tablet Take 1 Tablet by mouth every 6 hours as needed for up to 28 days for Pain. Daily Max: 4 Tablets 15 Tablet 04/04/2023 3 documented in this encounter Miscellaneous Notes * Telephone Encounter - Rach Waddell MD - 04/04/2023 1602 EDT Patient called requesting refill of pain medication. Has been taking agreed upon amount of 10 tabs q3-4 months. Fell and hit buttock area with worsening pain. Requesting early refill. Has been working with [employer] to care for her mental health. Has not gone for Pain Clinic intake as she was required to go to. This recommendation was made in March,. Has not been doing PT, Chiropractor or had any imaging appointments. Patient argumentative, states she had to prioritize her mental health and couldn't do both pain clinic and [facility]. Agreed with script for 10 tablets until May. No further scripts for narcotics. Patient agrees to this plan. documented in this encounter Plan of Treatment Upcoming Encounters Date Type Department Care Team (Late st Contact Info) Description 11/18/2024 8:15 EST Office Visit [facility] Pelvic Medicine and Reconstructive Surgery - Medical Office [facility] [address] [place] [phone] Julia Terrell PA-C [address] [place] [address] Medical Office Building, [address] [place] [phone] 11/25/2024 8:00 EST Rehab Therapy Visit [facility] Rehabilitation Therapy - Medical Office Building [address] [place] [phone] Cira Jackson DPT [address] [place] [address], [address] [place] [phone] 12/02/2024 8:00 EST Rehab Therapy Visit [facility] Rehabilitation Therapy - Medical Office Building [address] [place] [phone] Cira Jackson DPT [address] [place] [address] [address] [place] [phone] 12/09/2024 8:00 EST Rehab Therapy Visit [facility] Rehabilitation Therapy - Medical Office Building [address] [place] [address] Cira Jackson, KEMALT [address] [facility], [facility], [address] [place] [phone] 12/16/2024 9:00 EST Rehab Therapy Visit [facility] Rehabilitation Therapy - Medical Office Building [address] [place] [address] Cira Jackson, ROBERTO [address] [facility], [facility], [address] [place] [phone] 12/23/2024 9:00 EST Rehab Therapy Visit [facility] Rehabilitation [facility] - Medical Office [address] [place] [address] Cira Jackson DPT [address] [place] [address], [facility], [address] [place] [phone] documented as of this encounter Visit Diagnoses Not on filedocumented in this encounter Discontinued Medications Medication Sig Discontinue Reason Start Date End Da te HYDROcodone-acetaminophe n (NORCO) 5-325 mg tablet Take 1 Tablet by mouth every 6 hours as needed for up to 28 days for Pain. Daily Max: 4 Tablets Reorder 06/15/2022 04/04/2023 lidocaine 5 % (LIDODERM) 5 % patch APPLY 2 PATCH ON THE SKIN ONCE DAILY. MAY WEAR UP TO 12 HOURS Reorder 12/16/2022 04/04/2023 tolterodine (DETROL-LA) 2 mg long acting capsule Take 1 Capsule by mouth daily for 30 days. Reorder 03/10/2023 04/04/2023 documented as of this encounter Care Teams Heel Scourer Relationship Specialty Start Date End Date None, Provider PCP - General 06/25/14 08/06/23 documented as of this encounter
--- OUTSIDE RECORDS SUMMARY | 2024-11-10 02:16 | XMS_ITS | Encounter Summary ---
Author Organization [facility] Address [address] [place] [address] Care Team Providers Care Engine Room Operator Name Role Phone None, Provider Primary Care Provider Rach Stacy MD Unavailable [phone] Reason for Visit * Reason Comments Vaginal Bleeding Patient states she h as had heavy vaginal bleeding for the past four days. States it would be 6 days early for her period. States she had also had urinary incontinence for the past 6 months. Encounter Details Date Type Department Care Team (Late st Contact Info) Description 05/10/2023 16:20 EDT - 05/10/2023 22:46 EDT Emergency [facility] Emergency Department - [address] [id number] Renee Banks MD [address] [place] [phone] Bety Chapa MD [address] [place] [phone] Abnormal uterine bleeding (Primary Dx) Discharge Disposition: Home or Self [...] Recorded In the last 10 days, have yo u been in contact with someone who was confirmed or suspected to have Coronavirus/COVID-19? No / Unsure 05/10/2023 15:50 EDT documented as of this encounter Last Filed Vital Signs Vital Sign Reading Time Taken Comments Blood Pressure 115/73 05/10/20234 EDT Pulse 98 05/10/20234 EDT Temperature 36.7 ??C (98.1 ??F) 05/10/2023 2142 EDT Respiratory Rate 16 05/10/20232233 EDT Oxygen Saturation 100% 05/10/20232233 EDT Inhaled Oxygen Concentration - - Weight [...] this encounter Discharge Instructions * Discharge Instructions* Bety Chapa MD - 05/10/2023 20:32 EDT You have been seen in the ER for vaginal bleeding. Your ultrasound did not show anything emergent to be done today, but please follow up with SIGNAL INTELLIGENCE ANALYST. Please also call your Primary Care Doctor tomorrow to schedule a close follow-up visit. You may take your home medications as prescribed. You may take 600 mg of Ibuprofen every 6 hours alternating with Tylenol 650 mg every 6 hours (do not take more than 3000 mg of Tylenol in 24 hours). Please return to the ED for worsening or changing symptoms. Also if you develop fever, nausea/vomiting, chest pain, shortness of breath, or other concerns. * Attachments The following attachments cannot be sent through Care Everywhere. * Vaginal Bleeding (Divehi) documented in this encounter Medications at Time of Discharge albuterol 90 mcg/actuation inhaler Inhale 2 Puffs as directed every 4 hours. 1 Inhaler 0 08/10/2014 inhalational spacing device (BREATHERITE MDI SPACER) Use with a metered dose inhaler, as directed. May be dispensed with mask as appropriate.. 1 Each 0 08/10/2014 acetaminophen (TYLENOL) 500 mg tablet Take 2 Tablets by mouth every 8 hours as needed for Pain. 180 Tablet 10/29/2021 4 docusate sodium (COLACE) 100 mg capsule Take 1 capsule by mouth 2 times daily. 60 capsule 10/29/2021 3 doxycycline (VIBRA-TABS) 100 mg tablet Take 1 Tablet by mouth 2 times daily for 7 days. 14 Tablet 05/11/2023 3 HYDROcodone-acet aminophen (NORCO) 5-325 mg tablet Take 1 Tablet by mouth every 6 hours as needed for Pain. Daily Max: 4 Tablets 10 Tablet 04/05/2023 4 HYDROcodone-acet aminophen (NORCO) 5-325 mg tablet Take 1 Tablet by mouth every 6 hours as needed for Pain. Daily Max: 4 Tablets 10 Tablet 12/16/2022 4 levonorgestrel-e thinyl estradiol (NORDETTE) 0.15-0.03 mg per tablet Take 1 Tablet by mouth daily. 84 Tablet 1 08/17/2022 3 lidocaine 5 % (LIDODERM) 5 % patch APPLY 2 PATCH ON THE SKIN ONCE DAILY. MAY WEAR UP TO 12 HOURS 20 Patch 1 04/04/2023 3 medroxyPROGESTER one (PROVERA) 5 mg tablet Take 1 Tablet by mouth daily for 4 days. 4 Tablet 05/11/2023 3 metroNIDAZOLE (FLAGYL) 500 mg tablet Take 1 Tablet by mouth 2 times daily for 7 days. 14 Tablet 05/11/2023 3 polyethylene glycol 3350 (MIRALAX) 17 gram packet Take 17 g by mouth daily. 30 Each 10/30/2021 3 sertraline (ZOLOFT) 25 mg tablet Take 1 Tablet by mouth daily. 30 Tablet 10/30/2021 4 documented as of this encounter Ordered Prescriptions Prescription Sig Dispense Quantity Refills Last Filled Start Date End Date metroNIDAZOLE (FLAGYL) 500 mg tablet Take 1 Tablet by mouth 2 times daily for 7 days. 14 Tablet 05/11/2023 05/18/2023 doxycycline (VIBRA-TABS) 100 mg tablet Take 1 Tablet by mouth 2 times daily for 7 days. 14 Tablet 05/11/2023 05/18/2023 medroxyPROGESTERon e (PROVERA) 5 mg tablet Take 1 Tablet by mouth daily for 4 days. 4 Tablet 05/11/2023 05/15/2023 documented in this encounter Discharge Disposition Disposition Code Departure Means Destination Comment s Home or Self Senior Care documented in this encounter Consult Notes * Indy Alvarenga MD - 05/10/2023 1900 EDT Gynecology Consult Note Date of Service: 05/10/2023 Chief Complaint: Vaginal bleeding HPI: Mine reports that she's had abnormal vaginal bleeding for the last week. Her period came six days earlier than usual and was initially it's usual heavy flow. She noticed some clots passing. At its heaviest, she was soaking through one tampon per hour. Currently, she's wearing a diaper and feels she's bleeding the equivalent of one pad per two hours. She's been taking her OCPs like normal sothis is unexpected bleeding for her. Today, she noticed feeling dizzy and unwell so in the setting of vaginal bleeding and dizziness she decided to come for evaluation. She reports that she's waiting for an MRI and neurology appointment for incontinence that she's been having since her last baby. This has been a problem this last week for her too. She also has chronic pelvic pain related to her sacrum after her last delivery. It is very hard for her to tolerate anexam. PMH PSH Past Medical History: Diagnosis Date ??? Anxiety, generalized Ativan intermittently during ??? Pelvic floor dysfunction Past Surgical History: Procedure Laterality Date ??? OTHER SURGICAL HISTORY 2008 Excision of periurethral cysts at [facility] Social History Family History Social History Tobacco Use ??? Smoking status: Never ??? Smokeless tobacco: Never Substance Use Topics ??? Alcohol use: No Comment: social Family History Problem Relation Age of Onset ??? Asthma Mother ??? Hypertension Father OB History SIGNAL INTELLIGENCE ANALYST History OB History Para Term AB Living 4 2 2 2 2 SAB IAB Ectopic Multiple Live Births 2 0 2 # Outcome Date GA Lbr Kashif/2nd Weight Sex Delivery Anes PTL Lv 4 Term 10/26/21 37w3d 3190 g (7 lb 0.5 oz) F CS-LST DIETER 3 Term 11/26/15 39w6d / 03:07 4142 g (9 lb 2.1 oz) M Vag-Op DIETER 2 IAB 2010 1 IAB 2007 See above Medications (Not in a hospital admission) Allergies Allergies Allergen Reactions ??? Imitrex [Sumatriptan Succinate] Shortness Of Breath Review of Systems: See HPI Objective/Physical Exam: VS: Patient Vitals for the past 8 hrs: BP Pulse Resp Temp SpO2 05/10/23 1548 (!) 135/95 95 18 37.2 ??C (99 ??F) 100 % Pain: Patient Vitals for the past 8 hrs: Numeric Pain Level (Scale 1-10) 05/10/23 1548 5 Exam: Gen: NAD CV: Regular rate Resp: Normal efforts Abd: Soft, non-tender Pelvic: Difficult exam due to patient tolerance, normal external genitalia, normal vaginal mucosa, about 10cc of bright red/watery blood and discharge in vaginal vault, normal appearing cervix, exam terminated due to patient pain Ext: WWP, with hyperventilation there are hand contractures Data Review: TVUS 05/10/2023: IMPRESSION 1. Indeterminate hypodensity with a small tract along the anterior and superior wall of the cervix.While this could reflect a nabothian cyst, direct inspection/gynecologic evaluation is recommended. 2. Otherwise normal pelvic ultrasound. Labs: CBC: Recent Labs 05/10/23 1640 WBC 4.89 RBC 4.34 HGB 13.1 HCT 38.4 MCV 89 MCH 30.2 MCHC 34.1 PLT 291 NEUTROABS 3.28 BMP: Recent Labs 05/10/23 1640 NA 138 K 3.4* CL 101 CO2 21* BUN 9* CREATININE 0.50* CALCIUM 9.4 Coags: Recent Labs 05/10/23 1649 PROTIME 11.7 INR 1.0 PTT 26 UPT: Neg Assessment/Problems/Plan: Mine Lynn is a 32 year old who presents to the ED today with acute abnormal uterine bleeding, likely secondary to menstrual dysfunction. She is hemodynamicallystable with normal blood count and coags. UPT negative, bleeding not related to or miscarriage. Has been taking OCPs for contraception. No structural causes of AUB identified on TVUS today like polyp or fibroid. Unlikely to be related to an underlying bleeding or clotting disorder withoutpresentation earlier with menses or with deliveries. - 5mg provera daily for 5 days - Hold on OCP and use backup method of contraception - Clinic will call to check on her in a few days Patient seen and discussed with Dr. Bairon Alvarenga MD 05/10/23 20:59 Obstetrics & Gynecology, PGY-3 Pager #[phone] Cosigned by Rach Waddell MD at 05/11/2023 3:11 EDT Associated attestation - Rach Waddell MD - 05/11/2023 0311 EDT Attestation statement: I performed or was present during the quesada or critical portions of the visit and participated in the management of the patient. I agree with the findings and plan of care documented in the resident's/fellow's note. documented in this encounter ED Notes * Bairon Sommers RPH - 05/10/2023 2246 EDT Received call back from patient requesting expedited partner therapy for exposure to chlamydia. Dr.Kunal Duke approved prescription for doxycycline 100 mg PO BID x 7 days. Confirmed Florence's demographic information and med allergy history, sent prescription electronically through partner's chart in Ther[facility] to preferred pharmacy. ?? Bairon Sommers, Pharm.D. ?? * Arnaldo Duke MD - 05/10/2023 1633 EDT Emergency Department Visit This documentation is recorded by Nigel Quiroz acting as Scribe under the direction and presence of Renee Banks MD and Arnaldo Duke MD. Bety Chapa MD and Arnaldo Duke MD: I personally performed the services recorded by the scribe in my presence. I confirm the scribe's documentation has been reviewed by me to accurately and completely record my work, treatment, procedures, and medical decision making. Medical Decision Making Mine Lynn is a 32 y.o. female, with history of pelvic floor dysfunction, urinary incontinence, dysmenorrhea, heavy menstrual bleeding, presenting for abnormal uterine bleeding. 6 days of vaginal bleeding heavier than normal menses. Early for menstrual period. Sexually active. On OCP. At times requiring 1 tampon per hour. On very initial evaluation, patient became very anxious, hyperventilating, tearful. Reassured and provided 1 mg lorazepam with significant improvement. On reassessment after, patient comfortable and in no acute distress. Normal vitals. On exam, no pallor or abdominal tenderness. No extensive bruising. On POCUS, no free fluid in abdomen visualized. Urine negative. Stable hemoglobin. Normal platelets. BMP unremarkable. Do not suspect any bleeding disorder given normal platelets and no significant bruising on exam. Indiscussion with patient further, she feels like her child may have grabbed her in the spot where she has a bruise on her leg. Overall presentation consistent with abnormal uterine bleeding and non adults of reproductive age. Transvaginal ultrasound obtained to distinguish whether there is a structural etiology of this is more likely endocrine related. SIGNAL INTELLIGENCE ANALYST consulted and will see the patient. Signed out to attending provider Dr. Chapa. Please see her attestation for remainder of care. Relevant Data as of 05/10/231915May 10, [id number] Hemoglobin: 13.1 [LR] 180 Test, Urine: Negative [LR] Relevant Data User Index [LR] Bety Chapa MD Laboratory data was reviewed. Medical Decision Making Amount and/or Complexity of Data Reviewed Labs: ordered. Decision-making details documented in ED Course. Radiology: ordered. Risk Prescription drug management. Final diagnoses: Abnormal uterine bleeding Disposition: Discharged Chief complaint: Vaginal bleeding JERROD Lynn is a 32 y.o. female, with history of pelvic floor dysfunction, urinary incontinence, dysmenorrhea, heavy menstrual bleeding, presenting for vaginal bleeding. Vaginal bleed started 6 days ago. Early for her period, her period tracking chhaya suggests her periodshould have started today. Worsening bleeding over the past few days, heavier than typical. Red blood and clots. Sometimes requiring 1 tampon per hour. Also noticed a few spots of bruising on her legs. Sexually active with 1 male partner. On oral contraceptives for 2 months but no barrier protection. No fevers. No dysuria, vaginal discharge, vaginal burning. History of vaginal with significant pelvic floor dysfunction after and history of . No history of bleeding disorders. Not on anticoagulation. Patient of Dr. Waddell. History was provided by: Patient Records reviewed include: CINEMA OPERATOR clinic note 03/10/2023, notable for SIGNAL INTELLIGENCE ANALYST history Patient's pertinent PMH, FH, SH were reviewed and edited as necessary. Nursing notes reviewed. A medical screening exam was performed. Physical Exam BP (!) 135/95 (BP Cuff Location: Left arm, BP Patient Position: Sitting) Pulse 95 Temp 37.2 ??C(99 ??F) (Temporal) Resp 18 SpO2 100% Physical Exam Sitting in bed, no acute distress. No pallor. No respiratory distress, speaking complete sentences.Soft, nontender abdomen. Isolated bruise on left smith. No extensive ecchymoses, petechiae Procedures Procedures Cosigned by Bety Chapa MD at 05/10/2023 20:52 EDT Associated attestation - Bety Chapa MD - 05/10/20232051 EDT I, Bety Chapa MD was physically present during the services provided to this patient. I independently performed a history, examined the patient, and discussed the case with the resident. I havereviewed and edited this note, and the documentation is consistent with my findings, assessment andplan. I fully participated in the medical decision making. Patient had a transvaginal ultrasound that did not show any acute abnormalities. US PELVIS TRANSABDOMINAL AND TRANSVAGINAL COMPLETE Preliminary Result 1. Indeterminate hypodensity with a small tract along the anterior and superior wall of the cervix.While this could reflect a nabothian cyst, direct inspection/gynecologic evaluation is recommended. 2. Otherwise normal pelvic ultrasound. I spoke with our gynecology building consultant who recommended Provera 5 mg daily x5 days and follow up in [facility]. The patient was in agreement with the discharge and follow-up plan. Final diagnoses: Abnormal uterine bleeding Discharged documented in this encounter Plan of Treatment Upcoming Encounters Date Type Department Care Team (Late st Contact Info) Description 11/18/2024 8:15 EST Office Visit [facility] Pelvic Medicine and Reconstructive Surgery - Medical Office Building [facility] [address] [place] [phone] Julia Terrell PA-C [address] [facility] Medical Office Building, [address] [place] [phone] 11/25/2024 8:00 EST Rehab Therapy Visit [facility] Rehabilitation Therapy - Medical Office Building [address] [place] [phone] Cira Jackson, ROBERTO [address] [place] [address], [facility], [address] [place] [phone] 12/02/2024 8:00 EST Rehab Therapy Visit [facility] Rehabilitation Therapy - Medical Office Building [address] [place] [phone] Cira Jackson, ROBERTO [address] [place] [address], [facility], [address] [place] [phone] 12/09/2024 8:00 EST Rehab Therapy Visit [facility] Rehabilitation Therapy - Medical Office Building [address] [place] [phone] Cira Jackson DPT [address] [place] [address], [facility], [address] [place] [phone] 12/16/2024 9:00 EST Rehab Therapy Visit [facility] Rehabilitation Therapy - Medical Office Building [address] [place] [phone] Cira Jackson, DPT [address] [place] [address], [facility], [address] [place] [phone] 12/23/2024 9:00 EST Rehab Therapy Visit [facility] Rehabilitation Therapy - Medical Office Building [address] [place] [phone] Cira Jackson, DPT [address] [place] [address], [facility], [address] [place] [phone] Pending Results Name Type Priority Associated Diagnoses Date /Time POCT TEST, CLINITE K ORDER Lab STAT 05/10/2023 16:40 EDT Scheduled Orders Name Type Priority Associated Diagnoses Orde r Schedule POCT TEST, CLINITEK ORDER Lab STAT One Time STAT fo r 1 Occurrences starting 05/10/2023 until 05/10/2023 POCT TEST, CLINITEK Point of Care Testing STAT Once for 1 Occurrences starting 05/10/2023 until 05/10/2023 documented as of this encounter Procedures Procedure Name Priority Date/Time Associated Diagnosis Comments MOLECULAR VAGINITIS/VAGINOSIS ASSAY STAT 05/10/2023 18:30 EDT CHLAMYDIA/N. GONORRHOEAE AMPLIFIED NUCLEIC ACID STAT 05/10/2023 18:30 EDT US PELVIS TRANSABDOMINAL AND TRANSVAGINAL COMPLETE STAT 05/10/2023 18:23 EDT POCT US ED EXTENDED FOCUSED ABD TRAUMA (EFAST) 05/10/2023 17:33 EDT HOLD BLUE TOP Routine 05/10/2023 16:49 EDT PTT STAT Add-on 05/10/2023 16:49 EDT PROTIME STAT Add-on 05/10/2023 16:49 EDT URINE CHEMICAL (DIP) & SEDIMENT (MICRO) WITH REFLEX TO CULTURE STAT 05/10/2023 16:40 EDT POCT CSN BARCODE URINE PREG TEST STAT 05/10/2023 16:40 EDT TEST, URINE STAT 05/10/2023 16:40 EDT COMPLETE BLOOD COUNT AND DIFFERENTIAL STAT 05/10/2023 16:40 EDT BLOOD BANK HOLD Routine 05/10/2023 16:40 EDT TYPE AND SCREEN STAT 05/10/2023 16:40 EDT BACTERIAL CULTURE, URINE Today 05/10/2023 16:40 EDT BASIC METABOLIC PANEL (BMP) STAT 05/10/2023 16:40 EDT documented in this encounter Results * (ABNORMAL) CHLAMYDIA/N. GONORRHOEAE AMPLIFIED RNA (05/10/2023 18:30 EDT) Neisseria gonorrhoeae Result Negative Negative 05/11/2023 14:17 EDT [facility] Chlamydia trachomatis Result Positive(A) Negative 05/11/2023 14:17 EDT [facility] Swab ENTIRE VAGINA / Unknown Swab / Unknown 05/10/2023 18:30 EDT 05/10/2023 21:27 EDT us Arnaldo Duke MD MICROBIOLOGY - GENERAL ORDERABLE S Final Result [facility] [address] [place] [id number] * (ABNORMAL) MOLECULAR VAGINITIS/VAGINOSIS ASSAY (05/10/2023 18:30 EDT) Celi Species Negative Negative 13:15 EDT [facility] Celi glabrata Negative Negative 05/11/2023 13:15 EDT [facility] Trichomonas Vaginalis Negative Negative 05/11/2023 13:15 EDT [facility] BV (Bacterial vaginosis) Positive(A) Negative 05/11/2023 13:15 EDT [facility] Swab ENTIRE VAGINA / Unknown Swab / Unknown 05/10/2023 18:30 EDT 05/10/2023 21:27 EDT us Arnaldo Duke MD MICROBIOLOGY - GENERAL ORDERABLE S Final Result [facility] [address] [place] [address] * US PELVIS TRANSABDOMINAL AND TRANSVAGINAL COMPLETE (05/10/2023 18:23 EDT) Anatomical Region Laterality Modality Pelvis, Body Ultrasound 05/11/2023 8:52 EDT Impressions 05/11/2023 8:52 EDT 1. ??Normal pelvic ultrasound. I have personally reviewed the images and the above interpretation and agree with the findings. [id number] Narrative 05/11/2023 8:52 EDT PELVIS TRANSABDOMINAL AND TRANSVAGINAL COMPLETE ??05/10/2023 5:50 PM SIGNS AND SYMPTOMS/COMMENTS: Abnormal uterine bleeding; COMPARISON: None.. TECHNIQUE: Grayscale and limited color Doppler ultrasound of the pelvis was performed, first transabdominally, and then transvaginally. Transabdominal imaging was performed per departmental policy. FINDINGS: LMP: 05/05/2023 UTERUS: The anteverted uterus measures 8 x 4 x 5 cm in size. No focal lesion ENDOMETRIUM: The hyperechoic endometrium measures 1.2 cm in double endometrial stripe thickness, which is normal. RIGHT OVARY: The right ovary measures 4 x 1.7 x 1.9 cm in size, for an estimated right ovarian volume of 6.5 mL. Arterial and venous Doppler waveforms and color flow are present in the right ovary. LEFT OVARY: The left ovary measures 2.2 x 1.8 x 2.2 cm in size, for an estimated left ovarian volume of 4.3 mL. Arterial and venous Doppler waveforms and color flow are present in the left ovary. CERVIX: Nabothian cysts are present in the cervix. FREE FLUID: Trace. Procedure Note Karson Tomlin MD - 05/11/2023 PELVIS TRANSABDOMINAL AND TRANSVAGINAL COMPLETE 05/10/2023 5:50 PM SIGNS AND SYMPTOMS/COMMENTS: Abnormal uterine bleeding; COMPARISON: None.. TECHNIQUE: Grayscale and limited color Doppler ultrasound of the pelviswas performed, first transabdominally, and then transvaginally.Transabdominal imaging was performed per departmental policy. FINDINGS: LMP: 05/05/2023 UTERUS: The anteverted uterus measures 8 x 4 x 5 cm in size. No focallesion ENDOMETRIUM: The hyperechoic endometrium measures 1.2 cm in doubleendometrial stripe thickness, which is normal. RIGHT OVARY: The right ovary measures 4 x 1.7 x 1.9 cm in size, for anestimated right ovarian volume of 6.5 mL. Arterial and venous Dopplerwaveforms and color flow are present in the right ovary. LEFT OVARY: The left ovary measures 2.2 x 1.8 x 2.2 cm in size, for anestimated left ovarian volume of 4.3 mL. Arterial and venous Dopplerwaveforms and color flow are present in the left ovary. CERVIX: Nabothian cysts are present in the cervix. FREE FLUID: Trace. IMPRESSION 1. Normal pelvic ultrasound. I have personally reviewed the images and the above interpretation andagree with the findings. [id number] us Arnaldo Duke MD IMG US OB ORDERABLES Final Resul t * POCT US ED EXTENDED FOCUSED ABD TRAUMA (EFAST) (05/10/2023 17:33 EDT) Anatomical Region Laterality Modality Other 05/10/2023 17:3 3 EDT Narrative 05/11/2023 0:06 EDT Study Date and Time: 2023-05-10 17:33 Study Author: Arnaldo Duke EDR ED Extended FAST Exam - EFAST: Indications: ?Select any that apply.: Other ?Other: vaginal bleeding Views: ?Sonographic Views Obtained: RUQ (inferior pole of liver/Pisano's Pouch), LUQ (splenorenal/subdiaphragmatic), Retrovesicular Space ?Other Views Obtained: N/A FAST Findings: ?Free Fluid Visualized: No Abdominal Free Fluid Visualized ?IVC: N/A ?Other findings: N/A Lung Findings: ?Lung Sliding: N/A ?Estimated pneumothorax size (cm): N/A ?Thoracic Fluid Visualized: N/A ?Other lung findings: N/A Interpretation: ?Interpretation: Negative FAST (No Abdominal Free Fluid Visualized) ?Other: N/A Confirmatory Study: ?What confirmatory study was ordered during ED evaluation?: Comprehensive (e.g. radiology) ultrasound ?Confirmatory Study Findings/Comments: TVUS showed no acute findings Signed by Arnaldo MOSQUEDA on 2023-05-10 19:22 Physician Attestation: ?I reviewed and independently interpreted these images. ??I was present for the quesada and critical portions of the ultrasound imaging and agree with or have edited the findings as documented. Final Signature by Bety AGUIRRE on 2023-05-11 00:06 Procedure Note Bety Chapa MD - 05/11/2023 Study Date and Time: 2023-05-10 17:33 Study Author: Arnaldo MOSQUEDA ED Extended FAST Exam - EFAST: Indications: Select any that apply.: Other Other: vaginal bleeding Views: Sonographic Views Obtained: RUQ (inferior pole of liver/Pisano'sPouch), LUQ (splenorenal/subdiaphragmatic), Retrovesicular Space Other Views Obtained: N/A FAST Findings: Free Fluid Visualized: No Abdominal Free Fluid Visualized IVC: N/A Other findings: N/A Lung Findings: Lung Sliding: N/A Estimated pneumothorax size (cm): N/A Thoracic Fluid Visualized: N/A Other lung findings: N/A Interpretation: Interpretation: Negative FAST (No Abdominal Free Fluid Visualized) Other: N/A Confirmatory Study: What confirmatory study was ordered during ED evaluation?:Comprehensive (e.g. radiology) ultrasound Confirmatory Study Findings/Comments: TVUS showed no acute findings Signed by Arnaldo MOSQUEDA on 2023-05-10 19:22 Physician Attestation: I reviewed and independently interpreted these images. I was presentfor the quesada and critical portions of the ultrasound imaging and agree withor have edited the findings as documented. Final Signature by Bety AGUIRRE on 2023-05-11 00:06 us Bety Chapa MD IMG POCT US ORDERABLE S Final Result * PTT (05/10/2023 16:49 EDT) PTT 26 26 - 37 secs 05/10/2023 19:43 EDT [facility] Blood VENOUS BLOOD / Unknown Venipuncture / Unknown 05/10/2023 16:49 EDT 05/10/2023 17:23 EDT us Bety Chapa MD HEMATOLOGY & PF4 ORDE SYLVESTER Final Result [facility] [address] [place] [address] * PROTIME (05/10/2023 16:49 EDT) I.N.R. 1.0 0.9 - 1.1 Ratio 05/10/2023 19:43 EDT [facility] Pro Time 11.7 9.7 - 12.8 secs 05/10/2023 19:43 EDT [facility] Blood VENOUS BLOOD / Unknown Venipuncture / Unknown 05/10/2023 16:49 EDT 05/10/2023 17:23 EDT Narrative [facility] - 05/10/2023 19:43 EDT Moderate Intensity Coumadin INR = 2.0-3.0 Adjustments in anticoagulant therapy dose should be based on the INR and NOT on the Protime. us Bety Chapa MD HEMATOLOGY & PF4 RITA PHAN Final Result Performing Organization Address City/[facility]/ZIP Co de Phone Number [facility] [address] [place] [id number] * HOLD BLUE TOP (05/10/2023 16:49 EDT) Hold Hold 05/10/2023 18:31 EDT [facility] Blood VENOUS BLOOD / Unknown Venipuncture / Unknown 05/10/2023 16:49 EDT 05/10/2023 17:23 EDT us Renee Banks MD LAB INFO SERVICE AND SUPPO RT & PHONE RESULT Final Result [facility] [address] [place] [address] * (ABNORMAL) BACTERIAL CULTURE, URINE (05/10/2023 16:40 EDT) Organism ID [id number], [id number] to 100,000 CFU/ml Streptococcus agalactiae (Group B)(A) 05/12/2023 11:20 EDT [facility] Comment:Penicillin and ampic illin are the drugs of choice for treating beta- hemolytic Streptococcal infections. Susceptibility testing will not be performed. Organism ID Less than 10,000 CFU/ml Usual urogenital tomy. 05/12/2023 11:20 EDT [facility] Urine URINE SPECIMEN COLLECTION, CLEAN CATCH / Unknown Urine Collect / Unknown 05/10/2023 16:40 EDT 05/10/2023 17:31 EDT Arnaldo Duke MD MICROBIOLOGY - GENERAL ORDERABLE S Final Result Performing Organization Address City/[facility]/ZIP Co de Phone Number [facility] [address] [place] [address] * POCT CSN BARCODE URINE PREG TEST (05/10/2023 16:40 EDT) Urine URINE SPECIMEN COLLECTION, CLEAN CATCH / Unknown Urine Collect / Unknown 05/10/2023 16:40 EDT 05/10/2023 16:47 EDT Arnaldo Duke MD LAB INFO SERVICE AND SUPPORT & P HOLLIE RESULT Final Result Performing Organization Address City/[facility]/ZIP Co de Phone Number [facility] [address] [place] [address] * (ABNORMAL) BASIC METABOLIC PANEL (BMP) (05/10/2023 16:40 EDT) Sodium 138 136 - 145 mmol/L 05/10/2023 17:34 EDT [facility] Potassium 3.4(L) 3.5 - 5.0 mmol/L 05/10/2023 17:34 EDT [facility] Chloride 101 96 - 110 mmol/L 05/10/2023 17:34 EDT [facility] CO2 Total 21(L) 22 - 32 mmol/L 05/10/2023 17:34 [facility] Anion Gap 16(H) 5 - 14 mmol/L 05/10/2023 17:34 [facility] Glucose 83 70 - 99 mg/dl 05/10/2023 17:34 [facility] Calcium 9.4 8.5 - 10.5 mg/dL 05/10/2023 17:34 [facility] BUN 9(L) 10 - 26 mg/dL 05/10/2023 17:34 [facility] Creatinine 0.50(L) 0.52 - 1.04 mg/dL 05/10/2023 17:34 [facility] eGFR 127 >60 mL/min/1.73 m2 05/10/2023 17:34 [facility] Blood VENOUS BLOOD / Unknown Venipuncture / Unknown 05/10/2023 16:40 EDT 05/10/2023 17:17 EDT Arnaldo Duke MD CHEMISTRY & BLOOD GAS ORDERABLES Final Result Performing Organization Address [facility] Co de Phone Number [facility] [address] [place] [address] * TEST, URINE (05/10/2023 16:40 EDT) Test, Urine Negative Negative 05/10/2023 17:28 EDT [facility] Comment:False negative resul ts may occur in women who are beyond 5-8 weeks gestation. Diagnosis of should be based on a correlation of test results with typical clinical signs and symptoms. Urine URINE SPECIMEN COLLECTION, CLEAN CATCH / Unknown Urine Collect / Unknown 05/10/2023 16:40 EDT 05/10/2023 17:16 EDT Arnaldo Duke MD URINALYSIS ORDERABLES Final Resu lt Performing Organization Address City/[facility]/ZIP Co de Phone Number [facility] [address] [place] [address] * (ABNORMAL) URINE CHEMICAL (DIP) & SEDIMENT (MICRO) WITH REFLEX TO CULTURE (05/10/2023 16:40 EDT) Color UA Yellow Colorless, Yellow 05/10/2023 17:31 [facility] Clarity UA Clear Clear 05/10/2023 17:31 [facility] Glucose UA Negative Negative mg/dL 05/10/2023 17:31 [facility] Bilirubin UA Negative Negative 05/10/2023 17:31 [facility] Ketones UA 2+(A) Negative 05/10/2023 17:31 [facility] Specific [place], Urine 1.023 1.001 - 1.035 05/10/2023 17:31 [facility] Blood UA Trace(A) Negative 05/10/2023 17:31 [facility] Urobilinogen UA Normal Normal mg/dL 05/10/2023 17:31 [facility] Nitrite UA Negative Negative 05/10/2023 17:31 [facility] Leukocyte Esterase UA 1+(A) Negative 05/10/2023 17:31 [facility] Protein UA Trace(A) Negative 05/10/2023 17:31 [facility] pH, UA 6.0 4.6 - 8.0 05/10/2023 17:31 [facility] Urine RBC Count, Auto 0 - 2 0 - 2 Cells/HPF 05/10/2023 17:31 [facility] Urine WBC Count, Auto 11 - 50(A) 0 - 3 Cells/HPF 05/10/2023 17:31 [facility] Urine Squamous Count, Auto Few(A) None Seen Cells/HPF 05/10/2023 17:31 [facility] Urine Hyaline Cast Count, Auto <=10 <=10 Casts/LPF 05/10/2023 17:31 [facility] Urine Bacteria Count, Auto None Seen None Seen Bacteria/HP F 05/10/2023 17:31 [facility] Urine URINE SPECIMEN COLLECTION, CLEAN CATCH / Unknown Urine Collect / Unknown 05/10/2023 16:40 EDT 05/10/2023 17:16 EDT Narrative [facility] - 05/10/2023 17:31 EDT A Urine Culture test has been reflexively ordered based on result criteria from the Urine Sediment Analysis. Urine Sediment Analysis results are unreliable on urines that are unrefrigerated for >2 hrs or refrigerated >8 hrs. Arnaldo Duke MD URINALYSIS ORDERABLES Final Resu lt Performing Organization Address City/[facility]/ZIP Co de Phone Number [facility] [address] [place] [address] * TYPE AND SCREEN (05/10/2023 16:40 EDT) ABO O 05/10/2023 18:01 EDT [facility] Rh Factor Negative 05/10/2023 18:01 EDT [facility] Antibody Screen Negative 05/10/2023 18:01 EDT [facility] Specimen Expires: 05/13/2023 @ 23:59 05/10/2023 18:01 T [facility] Blood VENOUS BLOOD / Unknown Venipuncture / Unknown 05/10/2023 16:40 EDT 05/10/2023 17:21 EDT Arnaldo Duke MD BLOOD BANK TESTS Edited Result - Final Performing Organization Address [facility]/ZIP Co de Phone Number [facility] [address] [place] [address] * (ABNORMAL) COMPLETE BLOOD COUNT AND DIFFERENTIAL (05/10/2023 16:40 EDT) WBC 4.89 4.00 - 12.40 K/cmm 05/10/2023 17:31 EDT [facility] RBC 4.34 3.86 - 5.04 M/cmm 05/10/2023 17:31 EDT [facility] Hemoglobin 13.1 11.6 - 15.2 g/dL 05/10/2023 17:31 [facility] HCT 38.4 34.9 - 44.4 % 05/10/2023 17:31 [facility] MCV 89 81 - 98 fL 05/10/2023 17:31 [facility] MCH 30.2 26.7 - 33.3 pg 05/10/2023 17:31 [facility] MCHC 34.1 32.1 - 35.9 g/dL 05/10/2023 17:31 [facility] RDW-CV 12.9 <14.7 % 05/10/2023 17:31 [facility] RDW-SD 41.8 <50.4 fl 05/10/2023 17:31 [facility] PLT 291 141 - 377 K/cmm 05/10/2023 17:31 [facility] MPV 10.6 9.5 - 12.7 fL 05/10/2023 17:31 [facility] % Neutrophils 67.1 % 05/10/2023 17:31 [facility] % Lymphocytes 24.3 % 05/10/2023 17:31 [facility] % Monocytes 7.8 % 05/10/2023 17:31 [facility] % Eosinophils 0.2 % 05/10/2023 17:31 [facility] % Basophils 0.4 % 05/10/2023 17:31 [facility] % Immature Grans 0.2 % 05/10/20 17:31 [facility] Absolute Neutrophils 3.28 2.20 - 8.85 K/cmm 05/10/2023 17:31 [facility] Absolute Lymphocytes 1.19 1.09 - 3.30 K/cmm 05/10/2023 17:31 [facility] Absolute Monocytes 0.38 0.10 - 0.80 K/cmm 05/10/2023 17:31 [facility] Absolute Eosinophils 0.01(L) 0.03 - 0.61 K/cmm 05/10/2023 17:31 [facility] ABS Basophils 0.02 0.01 - 0.11 K/cm 05/10/2023 17:31 EDT [facility] Absolute Immature Grans 0.01 0.00 - 0.06 K/[facility] 05/10/2023 17:31 EDT [facility] Type of Differential: Auto 05/10/2023 17:31 EDT [facility] Blood VENOUS BLOOD / Unknown Venipuncture / Unknown 05/10/2023 16:40 EDT 05/10/2023 17:16 EDT us Arnaldo Duke MD PACKAGES & DNA PROBE ORDERABLES Final Result [facility] [address] [place] [address] * BLOOD BANK HOLD (05/10/2023 16:40 EDT) Hold BB Spec will exp at 23:59, 3 days from collect date 05/10/2023 17:37 EDT [facility] Blood VENOUS BLOOD / Unknown Venipuncture / Unknown 05/10/2023 16:40 EDT 05/10/2023 17:21 EDT us Renee Banks MD BLOOD BANK TESTS Final Res ult [facility] [address] [place] [address] documented in this encounter Visit Diagnoses Diagnosis Abnormal uterine bleeding- Primary Unspecified disorder of menstruation and other abnormal bleeding from female genital tract documented in this encounter Admitting Diagnoses Diagnosis Abnormal uterine bleeding Unspecified disorder of menstruation and other abnormal bleeding from female genital tract documented in this encounter Administered Medications Inactive Administered Medications - up to 3 most recent administrations Medication Order MAR Action Action Date Dose Rate Site acetaminophen (TYLENOL) tablet 1,000 mg 1,000 mg, oral, NOW X1, 1 dose, On Mon05/10/23 at 2230, STAT Given 05/10/2023 22:34 EDT 1,000 mg ibuprofen (MOTRIN) tablet 600 mg 600 mg, oral, NOW X1, 1 dose, On Mon05/10/23 at 2230, STAT Given 05/10/2023 22:34 EDT 600 mg LORazepam (ATIVAN) injection 1 mg 1 mg, intravenous, NOW X1, 1 dose, On Mon05/10/23 at 1715, STAT Given 05/10/2023 17:06 EDT 1 mg medroxyPROGESTERone (PROVERA) tablet 5 mg 5 mg, oral, NOW X1, 1 dose, On Mon05/10/23 at 2100, STAT Given 05/10/2023 21:38 EDT 5 mg sodium chloride 0.9 % BOLUS 1,000 mL 1,000 mL, intravenous, NOW X1, 1 dose, On Mon05/10/23 at 1945, STAT New Bag 05/10/2023 19:40 EDT 1,000 mL documented in this encounter Active and Recently Administered Medications Times are shown in EDT. Scheduled Medication Order 05/08/2023 05/09/2023 05/10/2023 acetaminophen (TYLENOL) tablet 1,000 mg (COMPLETED) 1,000 mg, oral, NOW X1, 1 dose, On Mon05/10/23 at 2230, STAT 2234 (Given - Provid er: Julieta Peterson RN) ibuprofen (MOTRIN) tablet 600 mg (COMPLETED) 600 mg, oral, NOW X1, 1 dose, On Mon05/10/23 at 2230, STAT 2234 (Given - Provid er: Julieta Peterson RN) LORazepam (ATIVAN) injection 1 mg (COMPLETED) 1 mg, intravenous, NOW X1, 1 dose, On Mon05/10/23 at 1715, STAT 1706 (Given - Provid er: Gene Meng RN) medroxyPROGESTERone (PROVERA) tablet 5 mg (COMPLETED) 5 mg, oral, NOW X1, 1 dose, On Mon05/10/23 at 2100, STAT 2138 (Given - Provid er: Gene Meng RN) sodium chloride 0.9 % BOLUS 1,000 mL (COMPLETED) 1,000 mL, intravenous, NOW X1, 1 dose, On Mon05/10/23 at 1945, STAT 1940 (New Bag - Prov ider: Julieta Peterson RN)2223 (IV Stopped - Provider: Julieta Kristen, RN) documented in this encounter Care Teams Engine Room Operator Relationship Specialty Start Date End Date None, Provider PCP - General 06/25/14 08/06/23 Rach Waddell MD [address] [facility] [address] [place] [phone] Rug Cutter Obstetrics and Gynecology 05/10/23 documented as of this encounter
--- OUTSIDE RECORDS SUMMARY | 2024-11-10 02:16 | XMS_ITS | Encounter Summary ---
Author Organization [facility] Address [address] [place] [address] Care Team Providers Care Film Printer Name Role Phone None, Provider Primary Care Provider Rach Stacy MD Unavailable Ariana Dill DNP Primary Care Provider [phone] Reason for Visit * Reason Onset Date Comments Medications Refill 10/05/2022 Encounter Details Date Type Department Care Team (Late st Contact Info) Description 10/05/[address] [facility] OBGYN Services - [facility] [address], [place] [id number] Rach Waddell MD [address] [facility], [address] [place] [address] Medications Refill Social History Tobacco [...] Pain. Daily Max: 4 Tablets 10 Tablet 10/06/2022 3 lidocaine 5 % (LIDODERM) 5 % patch APPLY 2 PATCH ON THE SKIN ONCE DAILY. MAY WEAR UP TO 12 HOURS 20 Patch 1 10/06/2022 3 documented in this encounter Miscellaneous Notes * Telephone Encounter - Daniel Christensen RN - 10/05/2022 1033 EST Requested Prescriptions Pending Prescriptions Disp Refills ??? lidocaine 5 % (LIDODERM) 5 % patch 20 Patch 1 Sig: APPLY 2 PATCH ON THE SKIN ONCE DAILY. MAY WEAR UP TO 12 HOURS ??? HYDROcodone-acetaminophen (NORCO) 5-325 mg tablet 10 Tablet 0 Sig: Take 1 Tablet by mouth every 6 hours as needed for Pain. Daily Max: 4 Tablets Pharmacy: [facility] Last Refill Date: 08/16/22 Last Visit Date: 04/18/22 Next Non-Acute Visit Date Scheduled with Care Team: No. Visit date not found Provider documentation reviewed, RX pended and sent to provider for review and approval. DANIEL CHRISTENSEN RN 10/05/2022 10:33 * Telephone Encounter - Daniel Christensen RN - 10/05/2022 1033 ESTFrom: Mine Lynn To: Office of Rach Waddell MD Sent: 10/05/2022 10:30 EST Subject: Medication Renewal Request Refills have been requested for the following medications: lidocaine 5 % (LIDODERM) 5 % patch [Rach Waddell] Patient Comment: Can you please include more refills HYDROcodone-acetaminophen (NORCO) 5-325 mg tablet [Rach Waddell] Patient Comment: Last filled Jul 2022 - used for [facility] and [place] travel on plane. Need a couple for this period and next month. I have an xray scan at [facility] scheduled for tailbone because PT thinks it may have been manipulated again after my weight gain during . Preferred pharmacy: [facility] - [address] documented in this encounter Plan of Treatment Upcoming Encounters Date Type Department Care Team (Late st Contact Info) Description 11/18/2024 8:15 EST Office Visit [facility] Pelvic Medicine and Reconstructive Surgery - Medical Office Building [facility] [address] [place] [address] Julia Terrell PA-C [address] [place] [address] Medical Office Building, [address] [place] [phone] 11/25/2024 8:00 EST Rehab Therapy Visit [facility] Rehabilitation Therapy - Medical Office Building [address] [place] [address] Cira Jackson DPT [address] [place] [address], [facility], [address] [place] [phone] 12/02/2024 8:00 EST Rehab Therapy Visit [facility] Rehabilitation Therapy - Medical Office Building [address] [place] [address] Cira Jackson, DPT [address] [place] [address], [facility], [address] [place] [phone] 12/09/2024 8:00 EST Rehab Therapy Visit [facility] Rehabilitation Therapy - Medical Office [address] [address] Cira Jackson DPT [address] [place] [address], [facility], [address] [place] [phone] 12/16/2024 9:00 EST Rehab Therapy Visit [facility] Rehabilitation Therapy - Medical Office Building [address] [place] [address] Cira Jackson DPT [address] [place] [address], [facility], [address] [place] [phone] 12/23/2024 9:00 EST Rehab Therapy Visit [facility] Rehabilitation Therapy - Medical Office Building [address] [place] [address] Cira Jackson, DPT [address] [place] [address], [facility], [address] [place] [phone] documented as of this encounter Visit Diagnoses Not on filedocumented in this encounter Discontinued Medications Medication Sig Discontinue Reason Start Date End Da te lidocaine 5 % (LIDODERM) 5 % patch APPLY 2 PATCH ON THE SKIN ONCE DAILY. MAY WEAR UP TO 12 HOURS Reorder 08/16/2022 10/05/2022 HYDROcodone-acetaminophe n (NORCO) 5-325 mg tablet Take 1 Tablet by mouth every 6 hours as needed for Pain. Daily Max: 4 Tablets Reorder 08/16/2022 10/05/2022 documented as of this encounter Additional Health Concerns Infection Onset Date Last Indicated Resolved Time R/O COVID 01/11/2024 01/11/2024 01/11/2024 22:3 5 EDT documented as of this encounter Care Teams Film Printer Relationship Specialty Start Date End Date None, Provider PCP - General 06/25/14 08/06/23 Ariana Dill DNP [address] [place] [address] PCP - General 08/07/23 Rach Waddell MD 111 [facility], [facility] [address] [place] [phone] Paint Factory Worker Obstetrics and Gynecology 05/10/23 documented as of this encounter
--- OUTSIDE RECORDS SUMMARY | 2024-11-10 02:16 | XMS_ITS | Encounter Summary ---
Author Organization [facility] Address [address] [place] [address] Care Team Providers Care Rubber Press Operator Name Role Phone None, Provider Primary Care Provider Rach Stacy MD Unavailable [phone] Reason for Visit * Reason Onset Date Comments Medications Refill 08/02/2023 Encounter Details Date Type Department Care Team (Late st Contact Info) Description 08/02/2023 Refill [facility] OBGYN Services - [address] [phone] Rach Waddell MD 111 [facility], [address] [place] [address] Medications Refill Social History Tobacco [...] UP TO 12 HOURS 20 Patch 1 08/02/2023 08/21/2023 documented in this encounter Miscellaneous Notes * Telephone Encounter - Alma Castro RN - 08/02/2023 6257 EDT Medication Refill Request Patient/Fax/Surescript Request Medication/Dose/Route/Frequency: Lidoderm patches 5% no refills on hydrocodone as per discussion with patient this am. Pt completely out: Yes Last office visit: 05/26/23 Pending visit: Not scheduled If appointment needed-message left/appointment made: Not needed Pharmacy confirmed: Yes Amount filled/# of refills: #20 patches R1 * Telephone Encounter - Alma Castro RN - 08/02/2023 1447 EDTFrom: Mine Harrispaty To: Office of Rach Waddell MD Sent: 08/02/2023 11:13 EDT Subject: Medication Renewal Request Refills have been requested for the following medications: HYDROcodone-acetaminophen (NORCO) 5-325 mg tablet [Rach Waddell] lidocaine 5 % (LIDODERM) 5 % patch [Rach Waddell] Patient Comment: Please send me a few refills thank you Preferred pharmacy: [facility] - [address] documented in this encounter Plan of Treatment Upcoming Encounters Date Type Department Care Team (Late st Contact Info) Description 11/18/2024 8:15 EST Office Visit [facility] Pelvic Medicine and Reconstructive Surgery - Medical Office [facility] [address] [place] [phone] Julia Terrell PA-C [address] [place] [address] Medical Office [facility], [address] [place] [phone] 11/25/2024 8:00 EST Rehab Therapy Visit [facility] Rehabilitation Therapy - Medical Office Building [address] [place], [place] [address] Cira Jackson DPT [address] [place] [address] [address] [place] [phone] 12/02/2024 8:00 EST Rehab Therapy Visit [facility] Rehabilitation Therapy - Medical Office Building [address] [place] [phone] Cira Jackson DPT [address] [place] [address], [address] [place] [phone] 12/09/2024 8:00 EST Rehab Therapy Visit [facility] Rehabilitation Therapy - Medical Office Building [address] [place] [address] Cira Jackson, DPT [address] [place] [address], [facility], [address] [place] [phone] 12/16/2024 9:00 EST Rehab Therapy Visit [facility] Rehabilitation Therapy - Medical Office Building [address] [place] [address] Cira Jackson, DPT 2 [facility], [facility], [address] [place] [phone] 12/23/2024 9:00 EST Rehab Therapy Visit [facility] Rehabilitation Therapy - Medical Office [place] [address] [place] [address] Cira Jackson, DPT [address] [place] [address], [facility], [address] [place] [phone] documented as of this encounter Visit Diagnoses Not on filedocumented in this encounter Discontinued Medications Medication Sig Discontinue Reason Start Date End Da te lidocaine 5 % (LIDODERM) 5 % patch APPLY 2 PATCH ON THE SKIN ONCE DAILY. MAY WEAR UP TO 12 HOURS Reorder 04/04/2023 08/02/2023 documented as of this encounter Care Teams Rubber Press Operator Relationship Specialty Start Date End Date None, Provider PCP - General 06/25/14 08/06/23 Rach Waddell MD [address] [place] [address] [address] [place] [phone] Redevelopment Specialist Obstetrics and Gynecology 05/10/23 documented as of this encounter
--- OUTSIDE RECORDS SUMMARY | 2024-11-10 02:16 | XMS_ITS | Encounter Summary ---
Author Organization [facility] Address [address] [place] [address] Care Team Providers Care Die Cutter Diamond Name Role Phone None, Provider Primary Care Provider Unavailabl e Reason for Referral * Consult (Routine/Next Available) - Closed Specialty Diagnoses / Procedures Referred By Contac t Referred To Contact Neurology Diagnoses Pelvic pain syndrome Rach Waddell MD Phone: tel: fax: Neurology 2c, Resident Phone: tel: fax: Referral ID Status Reason Start Date Expiration Date V isits Requested Visits Authorized [id number] Closed Specialty Services Required 03/10/2023 1 1 Question Answer Reason for Request: Sudden onset urinary incontinence Reason for Visit * Reason Comments Follow-up Encounter Details Date Type Department Care Team (Late st Contact Info) Description 03/10/2023 13:45 EDT Telemedicine [facility] OBGYN Services - [facility] [address] [place], [place] [id number] Rach Waddell MD 111 [facility], [facility], Level [address] [place] [address] Pelvic pain syndrome (Primary Dx) Social History Tobacco Use Types [...] Pain. Daily Max: 4 Tablets 10 Tablet 03/10/2023 3 tolterodine (DETROL-LA) 2 mg long acting capsule Take 1 Capsule by mouth daily for 30 days. 30 Capsule 3 03/10/2023 3 documented in this encounter Progress Notes * Rach Waddell MD - 03/10/2023 2806 EDT The concept of ???Telemedicine?? has been [...] copays, deductible or coinsurance for this service. Seen with My Chart Video. Notes she has started [employer] program, going well. Has continued random incontinence, 3 x last evening. Has had negative pelvic exam and urine culture. Has not made a Neurology appointment yet. Still having pelvic/back pain which has been a chronic pain condition. She takes 2-3 [place] tabs q month or so. (10 tabs q 3 months). documented in this encounter Plan of Treatment Upcoming Encounters Date Type Department Care Team (Late st Contact Info) Description 11/18/2024 8:15 EST Office Visit [facility] Pelvic Medicine and Reconstructive Surgery - Medical Office [facility] [address] [place] [address] Julia Terrell PA-C [address] [place] [address] Medical Office [facility], [address] [phone] 11/25/2024 8:00 EST Rehab Therapy Visit [facility] Rehabilitation Therapy - Medical Office Building [address] [place] [address] Cira Jackson, DPT [address] [place] [address], [facility], [address] [place] [phone] 12/02/2024 8:00 EST Rehab Therapy Visit [facility] Rehabilitation Therapy - Medical Office Building [address] [place] [address] Cira Jackson, DPT [address] [place] [address], [address] [place] [phone] 12/09/2024 8:00 EST Rehab Therapy Visit [facility] Rehabilitation Therapy - Medical Office Building [address] [place] [address] Cira Jackson, KEMALT [address] [place] [address], [address] [place] [phone] 12/16/2024 9:00 EST Rehab Therapy Visit [facility] Rehabilitation Therapy - Medical Office Building [address] [place] [address] Cira Jackson, DPT [address] [place] [address], [address] [place] [phone] 12/23/2024 9:00 EST Rehab Therapy Visit [facility] Rehabilitation Therapy - Medical Office Building [address] [place] [address] Cira Jackson, DPT [address] [place] [address] [address] [place] [phone] Scheduled Referrals Name Type Priority Associated Diagnoses Order Schedule AMB CONS/FOLLOW UP NEUROLOGY Outpatient Referral Routine/Next Available Pelvic pain syndrome Expected: 04/10/2023 (Approximate), Expires: 03/10/2024 documented as of this encounter Visit Diagnoses Diagnosis Pelvic pain syndrome- Primary Pelvic congestion syndrome documented in this encounter Care Teams Die Cutter Diamond Relationship Specialty Start Date End Date None, Provider PCP - General 06/25/14 08/06/23 documented as of this encounter
--- OUTSIDE RECORDS SUMMARY | 2024-11-10 02:16 | XMS_ITS | Encounter Summary ---
Author Organization [facility] Address [address] [place] [address] Care Team Providers Care Disaster Or Damage Control Specialist Name Role Phone None, Provider Primary Care Provider Rach Stacy MD Unavailable [phone] Ariana Dill DNP Primary Care Provider Encounter Details Date Type Department Care Team (Late st Contact Info) Description 08/01/2023 Lab Requisition [facility] Pathology & Laboratory Medicine - [facility] [address] [place] [address] Ariana Dill DNP [address] [place], [place] [address] Urinary tract infection, site not specified Social History Tobacco Use Types Packs/Day Years [...] Info) Description 11/18/2024 8:15 EST Office Visit [facility] Pelvic Medicine and Reconstructive Surgery - Medical Office Building [facility] [address] [place], [place] [phone] Julia Terrell PA-C 2 [facility] Medical Office Building, [address] [place] [phone] 11/25/2024 8:00 EST Rehab Therapy Visit [facility] Rehabilitation Therapy - Medical Office Building [address] [place], [place] [address] Cira Jackson, DPT 7[address] [facility], [facility], [address] [place] [phone] 12/02/2024 8:00 EST Rehab Therapy Visit [facility] Rehabilitation Therapy - Medical Office Building [address] [place] [address] Cira Jackson, DPT [address] [place] [address], [facility], [address] [place] [phone] 12/09/2024 8:00 EST Rehab Therapy Visit [facility] Rehabilitation Therapy - Medical Office Building [address] [place] [address] Cira Jackson, KEMALT [address] [place] [address], [facility], [address] [place] [phone] 12/16/2024 9:00 EST Rehab Therapy Visit [facility] Rehabilitation Therapy - Medical Office Building [address] [place] [address] Cira Jackson, DPT [address] [place] [address], [facility], [address] [place] [phone] 12/23/2024 9:00 EST Rehab Therapy Visit [facility] Rehabilitation Therapy - Medical Office [address] [address] Cira Jackson, DPT [address] [place] [address], [facility], [address] [place] [phone] documented as of this encounter Procedures Procedure Name Priority Date/Time Associated Diagnosis Comments BACTERIAL CULTURE, URINE Today 08/01/2023 17:27 EDT Urinary tract infection, site not specified documented in this encounter Results * (ABNORMAL) BACTERIAL CULTURE, URINE (08/01/2023 17:27 EDT) Organism ID Greater than 100,000 CFU/ml Escherichia coli(A) VITEK SUSCEPTIBILITY 08/04/2023 11:46 EDT [facility] Comment: Use of cefazolin is [...] only cefpodoxime and cephalexin are on the [facility] inpatient formulary. ? Urine URINE SPECIMEN OBTAINED BY CLEAN CATCH PROCEDURE / Unknown 08/01/2023 17:27 EDT 08/01/2023 21:23 EDT Narrative Organism Antibiotic Method Susceptibility Escherichia [...] thox azole VITEK SUSCEPTIBILITY <=20 ug/mL: Susceptible Ariana Dill DNP MICROBIOLOGY - GENERAL OR DERABLES Final Result [facility] [address] [place] [address] documented in this encounter Visit Diagnoses Diagnosis Urinary tract infection, site not specified documented in this encounter Additional Health Concerns Infection Onset Date Last Indicated Resolved Time R/O COVID 01/11/2024 01/11/2024 01/11/2024 22:3 5 EDT documented as of this encounter Care Teams Disaster Or Damage Control Specialist Relationship Specialty Start Date End Date None, Provider PCP - General 06/25/14 08/06/23 Ariana Dill DNP [address] [place] [address] PCP - General 08/07/23 Rach Waddell MD 111 [facility], [address] [place] [phone] Portable Track Crew Chief Obstetrics and Gynecology 05/10/23 documented as of this encounter
--- OUTSIDE RECORDS SUMMARY | 2024-11-10 02:16 | XMS_ITS | Encounter Summary ---
Author Organization [facility] Address [address] [place] [address] Care Team Providers Care Vector Control Specialist Name Role Phone None, Provider Primary Care Provider Unavailabl e Reason for Visit * Reason Onset Date Comments Medications Refill 01/17/2023 Encounter Details Date Type Department Care Team (Late st Contact Info) Description 01/17/2023 Refill [facility] OBGYN Services - [address] [phone] Rach Waddell MD 111 [facility], [address] [place] [address] Medications Refill Social History Tobacco [...] Telephone Encounter - Alma Castro RN - 01/18/2023 1149 EDT Call placed out to patient to update her that per Dr Waddell she would not be due for a refill until February. Also informed her that urine cultures can take up to 48 hours to return. Patient informed that Dr Waddell will contact her tomorrow. Patient verbalized understanding. * Telephone Encounter - Daniela Michael - 01/18/2023 1140 EDT Pt following up on her visit yesterday with [facility]-- [facility] detailed that her med needed to be refilled by an [facility] provider-- unsure if [facility] can fill for her. She would like to know if her medication for pain meds and UTI meds will be impacted on when her urine culture results are available. When may her results become available? Please reach out via MyChart to discuss. documented in this encounter Plan of Treatment Upcoming Encounters Date Type Department Care Team (Late st Contact Info) Description 11/18/2024 8:15 EST Office Visit [facility] Pelvic Medicine and Reconstructive Surgery - Medical Office Building [facility] [address] [place] [address] Julia Terrell PA-C 792 [facility] Medical Office [facility], [address] [place] [phone] 11/25/2024 8:00 EST Rehab Therapy Visit [facility] Rehabilitation Therapy - Medical Office Building [address] [place] [address] Cira Jackson, KEMALT [address] [place] [address] [address] [place] [phone] 12/02/2024 8:00 EST Rehab Therapy Visit [facility] Rehabilitation Therapy - Medical Office Building [address] [place], [place] [address] Cira Jackson DPT [address] [place] [address], [address] [place] [phone] 12/09/2024 8:00 EST Rehab Therapy Visit [facility] Rehabilitation Therapy - Medical Office Building [address] [place] [address] Cira Jackson DPT [address] [place] [address] [address] [place] [phone] 12/16/2024 9:00 EST Rehab Therapy Visit [facility] Rehabilitation Therapy - Medical Office Building [address] [place] [address] Cira Jackson DPT 792 [facility], [address] [place] [phone] 12/23/2024 9:00 EST Rehab Therapy Visit [facility] Rehabilitation Therapy - Medical Office Building [address] [place], [place] [address] Cira Jackson DPT 792 [facility], [address] [place] [phone] documented as of this encounter Visit Diagnoses Not on filedocumented in this encounter Care Teams Vector Control Specialist Relationship Specialty Start Date End Date None, Provider PCP - General 06/25/14 08/06/23 documented as of this encounter
--- OUTSIDE RECORDS SUMMARY | 2024-11-10 02:16 | XMS_ITS | Encounter Summary ---
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 I 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 then documented in this encounter Plan of Treatment Upcoming Encounters Date Type Department Care Team (Late st Contact Info) Description 11/18/2024 8:15 EST Office Visit [facility] Pelvic Medicine and Reconstructive Surgery - Medical Office [address] [address] Julia Terrell PA-C [address] [place] [address] Office [facility], [address] [phone] 11/25/2024 8:00 EST Rehab Therapy Visit [facility] Rehabilitation Therapy - Medical Office [address] [address] Cira Jackson, DPT [address] [place] [address], [facility], [address] [place] [phone] 12/02/2024 8:00 EST Rehab Therapy Visit [facility] Rehabilitation Therapy - Medical Office Building [address] [place] [address] Cira Jackson, DPT [address] [place] [address], [facility], [address] [place] [phone] 12/09/2024 8:00 EST Rehab Therapy Visit [facility] Rehabilitation Therapy - Medical Office Building [address] [place] [address] Cira Jackson, DPT [address] [place] [address], [address] [place] [phone] 12/16/2024 9:00 EST Rehab Therapy Visit [facility] Rehabilitation Therapy - Medical Office Building [address] [place] [address] Cira Jackson, DPT [address] [place] [address], [address] [place] [phone] 12/23/2024 9:00 EST Rehab Therapy Visit [facility] Rehabilitation Therapy - Medical Office Building [address] [place] [address] Cira Jackson, DPT [address] [place] [address], [address] [place] [phone] documented as of this encounter Visit Diagnoses Not on filedocumented in this encounter Care Teams Boilermaker Loftsman Relationship Specialty Start Date End Date None, Provider PCP - General 06/25/14 08/06/23 documented as of this encounter
--- OUTSIDE RECORDS SUMMARY | 2024-11-10 02:16 | XMS_ITS | Encounter Summary ---
Author Organization [facility] Address [address] [place] [address] Care Team Providers Care Asphalt Smoother Name Role Phone None, Provider Primary Care Provider Unavailabl e Encounter Details Date Type Department Care Team (Late st Contact Info) Description 12/16/2022 Orders Only [facility] OBGYN Services - [address] [address] Rach Waddell MD 111 [facility], [address] [place] [address] Social History Tobacco Use Types [...] of Assessment Author No 10/27/2021 8:27 Lois Veag RN * Because of a physical, mental, [...] 8:15 EST Office Visit [facility] Pelvic Medicine and Reconstructive Surgery - Medical Office Building [facility] [address] [place], [place] [phone] Julia Terrell PA-C 792 [facility] Medical Office Building, [address] [place] [phone] 11/25/2024 8:00 EST Rehab Therapy Visit [facility] Rehabilitation Therapy - Medical Office Building [address] [place], [place] [address] Cira Jackson DPT 2 [facility], [address] [place] [phone] 12/02/2024 8:00 EST Rehab Therapy Visit [facility] Rehabilitation Therapy - Medical Office Building [address] [place] [address] Cira Jackson DPT [address] [place] [address], [facility], [address] [place] [phone] 12/09/2024 8:00 EST Rehab Therapy Visit [facility] Rehabilitation Therapy - Medical Office Building [address] [place] [address] Cira Jackson DPT [address] [place] [address], [facility], [address] [place] [phone] 12/16/2024 9:00 EST Rehab Therapy Visit [facility] Rehabilitation Therapy - Medical Office Building [address] [place] [address] Cira Jackson DPT [address] [place] [address], [facility], [address] [place] [phone] 12/23/2024 9:00 EST Rehab Therapy Visit [facility] Rehabilitation Therapy - Medical Office Building [address] [place] [address] Cira Jackson DPT [address] [place] [address], [facility], [address] [place] [phone] documented as of this encounter Visit Diagnoses Not on filedocumented in this encounter Care Teams Asphalt Smoother Relationship Specialty Start Date End Date None, Provider PCP - General 06/25/14 08/06/23 documented as of this encounter
--- OUTSIDE RECORDS SUMMARY | 2024-11-10 02:16 | XMS_ITS | Encounter Summary ---
Author Organization [facility] Address [address] [place] [address] Care Team Providers Care Dirt Bike Racer Name Role Phone None, Provider Primary Care Provider Unavailabl e Encounter Details Date Type Department Care Team (Late st Contact Info) Description 04/20/2023 Orders Only [facility] Radiology - [facility] [address] [place], [place] [phone] Ashok Jimenez MD 111 [facility], [address] [place] [phone] Social History Tobacco Use Types Packs/Day Years [...] Info) Description 11/18/2024 8:15 EST Office Visit [facility] Pelvic Medicine and Reconstructive Surgery - Medical Office [facility] [address] [place], [place] [address] Julia Terrell PA-C 792 [facility] Medical Office Building, [address] [place] [phone] 11/25/2024 8:00 EST Rehab Therapy Visit [facility] [place] Rehabilitation Therapy - Medical Office Building [address] [place], [place] [address] Cira Jcakson DPT 792 [facility], [address] [place] [phone] 12/02/2024 8:00 EST Rehab Therapy Visit [facility] [place] Rehabilitation Therapy - Medical Office Building [address] [place] [address] Cira Jackson DPT [address] [place] [address], [facility], [address] [place] [phone] 12/09/2024 8:00 EST Rehab Therapy Visit [facility] [place] Rehabilitation Therapy - Medical Office Building [address] [place] [address] Cira Jackson DPT [address] [place] [address], [facility], [address] [place] [phone] 12/16/2024 9:00 EST Rehab Therapy Visit [facility] [place] Rehabilitation Therapy - Medical Office Building [address] [place] [address] Cira Jackson DPT [address] [place] [address], [facility], [address] [place] [phone] 12/23/2024 9:00 EST Rehab Therapy Visit [facility] [place] Rehabilitation Therapy - Medical Office Building [address] [place] [address] Cira Jackson DPT [address] [place] [address], [facility], [address] [place] [phone] documented as of this encounter Visit Diagnoses Not on filedocumented in this encounter Care Teams Dirt Bike Racer Relationship Specialty Start Date End Date None, Provider PCP - General 06/25/14 08/06/23 documented as of this encounter
--- OUTSIDE RECORDS SUMMARY | 2024-11-10 02:16 | XMS_ITS | Encounter Summary ---
Author Organization [facility] Address [address] [place] [address] Care Team Providers Care Commodity Trader Name Role Phone None, Provider Primary Care Provider Rach Stacy MD Unavailable [phone] Reason for Visit * Reason Onset Date Comments Appointment Related 08/02/2023 Encounter Details Date Type Department Care Team (Late st Contact Info) Description 08/02/2023 Telephone [facility] Adult Neurology - [facility] [address] [place], [place] [phone] Gloria Torres MD Appointment Related Social History Tobacco Use Types [...] encounter Miscellaneous Notes * Telephone Encounter - Miya Sheikh - 08/02/2023 1107 EDT Mine called to re-schedule her NPV with Dr Torres Added to wait list- pt will need a few hrs for any cancellations documented in this encounter Plan of Treatment Upcoming Encounters Date Type Department Care Team (Late st Contact Info) Description 11/18/2024 8:15 EST [facility] Visit [facility] Pelvic Medicine and Reconstructive Surgery - Medical Office [address] [address] Julia Terrell PA-C [address] [place] [address] Office [facility], [address] [phone] 11/25/2024 8:00 EST Rehab Therapy Visit [facility] Rehabilitation Therapy - Medical Office [address] [address] ManuelCira andrews DPT [address] [place] [address], [facility], [address] [place] [phone] 12/02/2024 8:00 EST Rehab Therapy Visit [facility] Rehabilitation Therapy - Medical Office Building [address] [place] [address] Cira Jackson DPT [address] [place] [address], [facility], [address] [place] [phone] 12/09/2024 8:00 EST Rehab Therapy Visit [facility] Rehabilitation Therapy - Medical Office Building [address] [place] [address] Cira Jackson DPT [address] [place] [address], [facility], [address] [place] [phone] 12/16/2024 9:00 EST Rehab Therapy Visit [facility] Rehabilitation Therapy - Medical Office Building [address] [place] [address] Cira Jackson DPT [address] [place] [address], [facility], [address] [place] [phone] 12/23/2024 9:00 EST Rehab Therapy Visit [facility] Rehabilitation Therapy - Medical Office Building [address] [place] [address] Cira Jackson DPT [address] [place] [address], [facility], [address] [place] [phone] documented as of this encounter Visit Diagnoses Not on filedocumented in this encounter Care Teams Commodity Trader Relationship Specialty Start Date End Date None, Provider PCP - General 06/25/14 08/06/23 Rach Waddell MD 111 [facility] 4 [place] [address] Client Renewal Specialist Obstetrics and Gynecology 05/10/23 documented as of this encounter
--- OUTSIDE RECORDS SUMMARY | 2024-11-10 02:16 | XMS_ITS | Encounter Summary ---
Author Organization [facility] Address [address] [place] [address] Care Team Providers Care Bilingual Administrative Assistant Name Role Phone None, Provider Primary Care Provider Unavailabl e Rach Waddell MD Unavailable Ariana Dill DNP Primary Care Provider [phone] Reason for Referral * Radiology Services (Routine/Next Available) - Closed Specialty Diagnoses / Procedures Referred By Contac t Referred To Contact Radiology Diagnoses Pelvic pain syndrome Procedures MR LUMBAR SPINE WO CONTRAST MR LUMBAR SPINE W WO CONTRAST Rach Waddell MD Phone: tel: fax: [facility] Referral ID Status Reason Start Date Expiration Date Visits Re quested Visits Authorized [id number] Closed 08/29/2023 10/27/2023 1 1 * Radiology Services (Routine/Next Available) - Closed Specialty Diagnoses / Procedures Referred By Contac t Referred To Contact Radiology Diagnoses Pelvic pain syndrome Procedures MR FEMALE PELVIS W WO CONTRAST Rach Waddell MD Phone: tel: fax: [facility] Referral ID Status Reason Start Date Expiration Date Visits Re quested Visits Authorized [id number] Closed 08/29/2023 10/27/2023 1 1 Encounter Details Date Type Department Care Team (Late st Contact Info) Description 04/20/2023 Orders Only [facility] OBGYN Services - [address] [address] Gail Murry RN Pelvic pain syndrome (Primary Dx) Social History [...] Office Visit [facility] Pelvic Medicine and Reconstructive Surgery - Medical Office Building [address] [address] Julia Terrell PA-C 792 [facility] Medical Office Building, [address] [place] [address] 11/25/2024 8:00 EST Rehab Therapy Visit [facility] Rehabilitation Therapy - Medical Office Building [address] [place] [id number] Cira Jackson, KEMALT [address] [place] [address] [address] [place] [phone] 12/02/2024 8:00 EST Rehab Therapy Visit [facility] Rehabilitation Therapy - Medical Office [address] [address] Cira Jackson, ROBERTO [address] [place] [address] [address] [place] [phone] 12/09/2024 8:00 EST Rehab Therapy Visit [facility] Rehabilitation Therapy - Medical Office Building [address] [place] [address] Cira Jackson DPT [address] [place] [address] [place] [phone] 12/16/2024 9:00 EST Rehab Therapy Visit [facility] Rehabilitation Therapy - Medical Office Building [address] [place] [address] Cira Jackson DPT 792 [facility], [facility], [address] [place] [address] 12/23/2024 9:00 EST Rehab Therapy Visit [facility] Rehabilitation Therapy - Medical Office Building [address] [place], [place] [phone] Cira Jackson DPT 792 [facility], [facility], [address] [place] [address] documented as of this encounter Results * MR FEMALE PELVIS [...] above interpretation and agree with the findings. [id number] Narrative 09/07/2023 16:13 EST MR FEMALE PELVIS W WO CONTRAST ??09/07/2023 9:30 AM Signs and Symptoms/Comments: pelvic pain syndrome; Pelvic pain, neg beta-HCG, bearing machine operator etiol suspected; pelvic pain syndrome;R10.2:Pelvic pain syndrome [...] Symptoms/Comments: pelvic pain syndrome; Pelvic pain, negbeta-HCG, bearing machine operator etiol suspected; pelvic pain syndrome;R10.2:Pelvic painsyndrome Technique: [...] the above interpretation andagree with the findings. [id number] us Rach Waddell MD IMG MRI ORDERABLES Final Res ult * MR LUMBAR SPINE WO CONTRAST (09/07/2023 [...] significant degenerative changes in the lumbar spine. [id number] Narrative 09/07/2023 11:28 EST EXAM: MRI LUMBAR [...] significant degenerative changes in the lumbar spine. [id number] us Rach Waddell MD IMG MRI ORDERABLES Final Res ult documented in this encounter Visit Diagnoses Diagnosis Pelvic pain syndrome- Primary Pelvic congestion syndrome Pelvic pain syndrome Pelvic congestion syndrome Pelvic pain syndrome Pelvic congestion syndrome documented in this encounter Additional Health Concerns Infection Onset Date Last Indicated Resolved Time R/O COVID 01/11/2024 01/11/2024 01/11/2024 22:3 5 EDT documented as of this encounter Care Teams Bilingual Administrative Assistant Relationship Specialty Start Date End Date None, Provider PCP - General 06/25/14 08/06/23 Ariana Dill DNP [address] [place] [address] PCP - General 08/07/23 Rach Waddell MD 111 [facility], [address] [place] [phone] Rotary Soil Stabilizer Operator Obstetrics and Gynecology 05/10/23 documented as of this encounter
--- OUTSIDE RECORDS SUMMARY | 2024-11-10 02:16 | XMS_ITS | Encounter Summary ---
Author Organization [facility] Address [address] [place] [address] Care Team Providers Care Piercing Specialist Name Role Phone None, Provider Primary Care Provider Rach Stacy MD Unavailable Ariana Dill DNP Primary Care Provider [phone] Reason for Visit * Reason Onset Date Comments Medications Refill 01/19/2023 Encounter Details Date Type Department Care Team (Late st Contact Info) Description 01/19/2023 Refill [facility] OBGYN Services - [facility] [address] [place], [place] [phone] Rach Waddell MD 111 [facility], [address] [place] [address] Medications Refill Social History Tobacco [...] Description 11/18/2024 8:15 EST Office Visit [facility] Pelvic Medicine and Reconstructive Surgery - Medical Office Building [facility] [address] [place], [place] [address] Julia Terrell PA-C 792 [facility] Medical Office Building, [address] [place] [phone] 11/25/2024 8:00 EST Rehab Therapy Visit [facility] Rehabilitation Therapy - Medical Office Building [address] [place] [address] Cira Jackson, KEMALT 792 [facility], [facility], [address] [place] [phone] 12/02/2024 8:00 EST Rehab Therapy Visit [facility] Rehabilitation Therapy - Medical Office Building [address] [place] [address] Cira Jackson, DPT [address] [place] [address], [facility], [address] [place] [phone] 12/09/2024 8:00 EST Rehab Therapy Visit [facility] Rehabilitation Therapy - Medical Office Building [address] [place] [address] Cira Jackson, DPT [address] [place] [address], [facility], [address] [place] [phone] 12/16/2024 9:00 EST Rehab Therapy Visit [facility] Rehabilitation Therapy - Medical Office Building [address] [place] [address] Cira Jackson, KEMALT [address] [place] [address], [facility], [address] [place] [phone] 12/23/2024 9:00 EST Rehab Therapy Visit [facility] Rehabilitation Therapy - Medical Office Building [address] [place] [address] Cira Jackson, DPT [address] [place] [address], [facility], [address] [place] [phone] documented as of this encounter Visit Diagnoses Not on filedocumented in this encounter Additional Health Concerns Infection Onset Date Last Indicated Resolved Time R/O COVID 01/11/2024 01/11/2024 01/11/2024 22:3 5 EDT documented as of this encounter Care Teams Piercing Specialist Relationship Specialty Start Date End Date None, Provider PCP - General 06/25/14 08/06/23 Ariana Dill DNP [address] [place] [address] PCP - General 08/07/23 Rach Waddell MD [address] [place] [address], [address] [place] [phone] Safety Spec Obstetrics and Gynecology 05/10/23 documented as of this encounter
--- OUTSIDE RECORDS SUMMARY | 2024-11-10 02:16 | XMS_ITS | Encounter Summary ---
Author Organization [facility] Address [address] [facility] [place] [address] Care Team Providers Care Fruit Raiser Name Role Phone None, Provider Primary Care Provider Rach Stacy MD Unavailable [phone] Encounter Details Date Type Department Care Team (Latest Contact Info) Description 05/10/2023 Travel Social History Tobacco Use Types Packs/Day [...] 15:50 EDT documented as of this encounter Functional Status [...] Info) Description 11/18/2024 8:15 EST Office Visit [facility] Pelvic Medicine and Reconstructive Surgery - Medical Office [facility] [address] [place], [place] [address] Julia Terrell PA-C 2 [facility] Medical Office Building, [address] [place] [phone] 11/25/2024 8:00 EST Rehab Therapy Visit [facility] Rehabilitation Therapy - Medical Office Building [address] [place] [address] Cira Jackson DPT 792 [facility], [address] [place] [phone] 12/02/2024 8:00 EST Rehab Therapy Visit [facility] Rehabilitation Therapy - Medical Office Building [address] [place], [place] [address] Cira Jackson, DPT [address] [place] [address], [facility], [address] [place] [phone] 12/09/2024 8:00 EST Rehab Therapy Visit [facility] Rehabilitation Therapy - Medical Office Building [address] [place] [address] Cira Jackson, DPT [address] [place] [address], [facility], [address] [place] [phone] 12/16/2024 9:00 EST Rehab Therapy Visit [facility] Rehabilitation Therapy - Medical Office Building [address] [place] [address] Cira Jackson DPT [address] [place] [address], [facility], [address] [place] [phone] 12/23/2024 9:00 EST Rehab Therapy Visit [facility] Rehabilitation Therapy - Medical Office [address] [address] Cira Jackson, DPT [address] [place] [address], [facility], [address] [place] [phone] documented as of this encounter Visit Diagnoses Not on filedocumented in this encounter Care Teams Fruit Raiser Relationship Specialty Start Date End Date None, Provider PCP - General 06/25/14 08/06/23 Rach Waddell MD [address] [place] [address], [facility] [address] [place] [phone] Wooden Fence Erector Obstetrics and Gynecology 05/10/23 documented as of this encounter
--- OUTSIDE RECORDS SUMMARY | 2024-11-10 02:16 | XMS_ITS | Encounter Summary ---
Author Organization [facility] Address [address] [place] [address] Care Team Providers Care Chopping Machine Operator Name Role Phone None, Provider Primary Care Provider Unavailabl e Reason for Visit * Reason Comments Gynecologic Exam Patient here today f or frequent incontinence with flank pain and bilateral leg pain. States she has long-standing hx of bladder issues, but has gotten worse. Notes it gets worse when she stands up. Reports burning with urination, shaking/chills, tingling sensation, and has been waking up in a sweat. Patient took COVID-19 test, which came back negative, but states she does not feel right Encounter Details Date Type Department Care Team (Late st Contact Info) Description 01/17/2023 14:30 EDT Office Visit [facility] OBGYN Services - [address] [address] Kristina Choi MD 111 [facility], [address] [place] [address] Urinary frequency (Primary Dx) Social History Tobacco Use Types [...] Sign Reading Time Taken Comments Blood Pressure 92/56 01/17/2023 1415 EDT Pulse - - Temperature - - Respiratory Rate - - Oxygen Saturation - - Inhaled Oxygen Concentration - - Weight 48.5 kg (107 lb) 01/17/2023 1415 EDT Height - - Body Mass Index 18.37 10/27/2021 0827 EST documented in this encounter Functional Status [...] documented in this encounter Progress Notes * Kristina Choi MD - 01/17/2023 1430 EDT GYNECOLOGY NEW PATIENT CONSULT NOTE Chief Complaint Patient presents with ??? Gynecologic Exam Patient here today for frequent incontinence with flank pain and bilateral leg pain. States she haslong-standing hx of bladder issues, but has gotten worse. Notes it gets worse when she stands up. Reports burning with urination, shaking/chills, tingling sensation, and has been waking up in a sweat. Patient took COVID-19 test, which came back negative, but states she does not feel right SUBJECTIVE: Ms. Lynn is a 32 y.o. P2 long standing patient of [facility] who presentsfor an acute care visit with concerns of ongoing incontinence-noting intermittent episodes sudden loss of urine. She reports a long standing history of pelvic floor dysfunction, surgery at for excision of niurka-uretheral cysts, a long hx of pelvic physical therapy, and a prior evaluation with urogynecology. She believes the urine is being eliminated from her bladder and not her vagina. Prior delivery. Reports no intercourse X 6 months thus not actively contracepting. She reports pain into her legs on both sides, but denies loss of strength or falls. Diet is normal. She reports feeling hot last night but no clear fever. Denies vaginal discharge. Past Medical History: Diagnosis Date ??? Anxiety, generalized Ativan intermittently during ??? Pelvic floor dysfunction Past Surgical History: Procedure Laterality Date ??? OTHER SURGICAL HISTORY 2007 Excision of periurethral cysts at [facility] OB History 4 Para 2 Term 2 AB 2 Living 2 SAB IAB 2 Ectopic Multiple 0 Live Births 2 Allergies Allergen Reactions ??? Imitrex [Sumatriptan Succinate] Shortness Of Breath Social History Social History Narrative ??? Not on file Family History Problem Relation Age of Onset ??? Asthma Mother ??? Hypertension Father Outpatient Medications Marked as Taking for the 01/17/23 encounter (Office Visit) with Kristina Choi MD Medication Sig Dispense Refill ??? acetaminophen (TYLENOL) 500 mg tablet Take 2 Tablets by mouth every 8 hours as needed for Pain.180 Tablet 0 ??? albuterol 90 mcg/actuation inhaler Inhale 2 Puffs as directed every 4 hours. 1 Inhaler 0 ??? HYDROcodone-acetaminophen (NORCO) 5-325 [...] UP TO 12 HOURS 20 Patch 1 ??? sertraline (ZOLOFT) 25 mg tablet Take 1 Tablet by mouth daily. (Patient taking differently: Take 200 mg by mouth daily. Dosage change) 30 Tablet 0 OBJECTIVE: BP 92/56 Wt 48.5 kg (107 lb) LMP 12/26/2022 BMI 18.37 kg/m?? General: Appears anxious, non toxic Abdomen: soft, non-tender; bowel sounds normal; no masses, no organomegaly Extremities: extremities warm, atraumatic, no cyanosis or edema positive pulses bilatal, +5 out of 5 strength lower extremities, no sensory deficits Neurologic: Non focal neuro exam Vulva: normal : normal Vagina: normal mucosa, no discharge Cervix: no lesions Mucous: No Discharge Uterus: normal shape, position and consistency Left Adnexa: Normal Right Adnexa: Normal Rectovaginal: Deferred Review of US Labs: ASSESSMENT: (R35.0) Urinary frequency (primary encounter diagnosis) Plan: BACTERIAL CULTURE, URINE Urinary frequency - BACTERIAL CULTURE, URINE; Urinary incontinence of uncertain etiology No evidence on exam of fistula. Long hx of prior urologic work up. Will send UA and culture if positive. 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 Recommendations made to patient. Will not refill narcotics as the patient should have a contract with a single provider. I spent a total of 30 minutes on the date of this encounter meeting with the patient and reviewing documentation/coordinating care as described in the above note. Unless otherwise noted, no procedures were performed at the time of the visit. documented in this encounter Plan of Treatment Upcoming Encounters Date Type Department Care Team (Late st Contact Info) Description 11/18/2024 8:15 EST Office Visit [facility] Pelvic Medicine and Reconstructive Surgery - Medical Office [place] [phone] Julia Terrell PA-C 792 [facility] Medical Office Building, [address] [place] [phone] 11/25/2024 8:00 EST Rehab Therapy Visit [facility] Rehabilitation Therapy - Medical Office Building [address] [place] [address] Cira Jackson, DPT [address] [place] [address], [facility], [address] [place] [phone] 12/02/2024 8:00 EST Rehab Therapy Visit [facility] - Medical Office Building [address] [place] [address] Cira Jackson, KEMALT [address] [place] [address], [facility], [address] [place] [phone] 12/09/2024 8:00 EST Rehab Therapy Visit [facility] Rehabilitation [facility] - Medical Office Building [address] [place] [address] Cira Jackson, DPT [address] [place] [address], [facility], [address] [place] [phone] 12/16/2024 9:00 EST Rehab Therapy Visit [facility] Rehabilitation Therapy - Medical Office Building [address] [place] [address] Cira Jackson, DPT [address] [place] [address], [address] [place] [phone] 12/23/2024 9:00 EST Rehab Therapy Visit [facility] Rehabilitation Therapy - Medical Office Building [address] [place] [address] Cira Jackson, DPT 792 [facility], [facility], [address] [place] [address] documented as of this encounter Procedures Procedure Name Priority Date/Time Associated Diagnosis Comments BACTERIAL CULTURE, URINE Routine 01/17/2023 15:07 EDT Urinary frequency documented in this encounter Results * BACTERIAL CULTURE, URINE (01/17/2023 15:07 EDT) Organism ID Less than 10,000 CFU/ml Usual urogenital tomy. 01/18/2023 13:[address] [facility] Urine URINE SPECIMEN COLLECTION, CLEAN CATCH / Unknown Urine Collect / Unknown 01/17/2023 15:07 EDT 01/17/2023 15:30 EDT us Kristina Sommers MD MICROBIOLOGY - GENERAL ORDERABLES Final Result [facility] [address] [place] [address] documented in this encounter Visit Diagnoses Diagnosis Urinary frequency- Primary documented in this encounter Care Teams Chopping Machine Operator Relationship Specialty Start Date End Date None, Provider PCP - General 06/25/14 08/06/23 documented as of this encounter
--- OUTSIDE RECORDS SUMMARY | 2024-11-10 02:16 | XMS_ITS | Encounter Summary ---
Author Organization [facility] Address [address] [place] [address] Care Team Providers Care Production Counter Name Role Phone None, Provider Primary Care Provider Unavailabl e Reason for Referral * Consult (Routine/Next Available) - Receiving Office to Obtain Authorization Specialty Diagnoses / Procedures Referred By Zackary corea Referred To Contact Neurology Diagnoses Other urinary incontinence Rach Waddell MD Phone: tel: fax: Neurology 2c, Resident Phone: tel: fax: Referral ID Status Reason Start Date Expiration Date Visits Requested Visits Authorized [id number] Receiving Office to Obtain Authorization Specialty Services Required 3 1 1 Question Answer Reason for Request: Urge incontinence due to possible neurologic condition Encounter Details Date Type Department Care Team (Late st Contact Info) Description 01/20/2023 Orders Only [facility] OBGYN Services - Main [place] [address] [place] [address] Alma Castro RN Other urinary incontinence (Primary Dx) Social History Tobacco Use Types [...] documented in this encounter Progress Notes * Alma Castro RN - 01/20/[address] Waddell please refer patient to neurology. documented in this encounter Plan of Treatment Upcoming Encounters Date Type Department Care Team (Late st Contact Info) Description 11/18/2024 8:15 EST Office Visit [facility] Pelvic Medicine and Reconstructive Surgery - Medical Office [facility] [address] [place] [address] Julia Terrell PA-C 2 [facility] Medical Office Building, [address] [place] [phone] 11/25/2024 8:00 EST Rehab Therapy Visit [facility] Rehabilitation Therapy - Medical Office Building [address] [place] [address] Cira Jackson, DPTunde [address] [place] [address], [facility], [address] [place] [phone] 12/02/2024 8:00 EST Rehab Therapy Visit [facility] Rehabilitation Therapy - Medical Office Building [address] [place] [address] Cira Jackson DPT [address] [place] [address], [facility], [address] [place] [phone] 12/09/2024 8:00 EST Rehab Therapy Visit [facility] Rehabilitation Therapy - Medical Office Building [address] [place] [address] Cira Jackson DPT [address] [place] [address], [facility], [address] [place] [phone] 12/16/2024 9:00 EST Rehab Therapy Visit [facility] Rehabilitation Therapy - Medical Office Building [address] [place] [address] Cira Jackson, DPT [address] [place] [address], [address] [place] [phone] 12/23/2024 9:00 EST Rehab Therapy Visit [facility] Rehabilitation Therapy - Medical Office Building [address] [place] [address] Cira Jackson, DPT 792 [facility], [facility], [address] [place] [address] Scheduled Referrals Name Type Priority Associated Diagnoses Order Schedule AMB CONS/FOLLOW UP NEUROLOGY Outpatient Referral Routine/Next Available Other urinary incontinence Expected: 01/27/2023 (Approximate), Expires: 01/21/2024 documented as of this encounter Visit Diagnoses Diagnosis Other urinary incontinence- Primary documented in this encounter Care Teams Production Counter Relationship Specialty Start Date End Date None, Provider PCP - General 06/25/14 08/06/23 documented as of this encounter
--- OUTSIDE RECORDS SUMMARY | 2024-11-10 02:16 | XMS_ITS | Encounter Summary ---
Author Organization [facility] Address [address] [place] [address] Care Team Providers Care Technical Customer Support Specialist Name Role Phone None, Provider Primary Care Provider Juliet e Rach Waddell MD Unavailable [phone] Encounter Details Date Type Department Care Team (Late st Contact Info) Description 06/16/2023 Orders Only [facility] OBGYN Services - [address] [id number] Rach Waddell MD 111 [facility], [address] [place] [address] Social History Tobacco Use Types [...] Surgery - Medical Office [facility] [address] [place], [place] [address] Julia Terrell PA-C 792 [facility] Medical Office Building, [address] [place] [phone] 11/25/2024 8:00 EST Rehab Therapy Visit [facility] Rehabilitation Therapy - Medical Office Building [address] [place], [place] [phone] Cira [place] DPT 792 [facility], [facility], [address] [place] [phone] 12/02/2024 8:00 EST Rehab Therapy Visit [facility] Rehabilitation Therapy - Medical Office Building [address] [place] [address] Cira [place] DPT [address] [place] [address], [facility], [address] [place] [phone] 12/09/2024 8:00 EST Rehab Therapy Visit [facility] Rehabilitation Therapy - Medical Office Building [address] [place] [address] Cira [place] DPT [address] [place] [address], [facility], [address] [place] [phone] 12/16/2024 9:00 EST Rehab Therapy Visit [facility] Rehabilitation Therapy - Medical Office Building [address] [place] [address] Cira [place] DPT [address] [place] [address], [facility], [address] [place] [phone] 12/23/2024 9:00 EST Rehab Therapy Visit [facility] Rehabilitation [facility] - Medical Office Building [address] [place] [address] Cira [place] DPT [address] [place] [address], [facility], [address] [place] [phone] documented as of this encounter Procedures Procedure Name Priority Date/Time Associated Diagnosis Comments PAP TEST Routine 03/09/2021 0:00 EDT documented in this encounter Results * PAP TEST (03/09/2021 0:00 EDT) Pap Test CERVIX UTERI STRUCTURE / Unknown us Donor Services Coordinator-[facility] In PATHOLOGY ORDERABLES Fin al Result [facility] documented in this encounter Visit Diagnoses Not on filedocumented in this encounter Care Teams Technical Customer Support Specialist Relationship Specialty Start Date End Date None, Provider PCP - General 06/25/14 08/06/23 Rach Waddell MD 111 [facility] 4 [place] [address] Accounts Receivable Bookkeeper Obstetrics and Gynecology 05/10/23 documented as of this encounter
--- OUTSIDE RECORDS SUMMARY | 2024-11-10 02:16 | XMS_ITS | Encounter Summary ---
Author Organization [facility] Address [address] [place] [address] Care Team Providers Care Head Of Store Operations Name Role Phone None, Provider Primary Care Provider Unavailabl e Reason for Visit * Reason Onset Date Comments Medications Refill 12/14/2022 Encounter Details Date Type Department Care Team (Late st Contact Info) Description 12/14/2022 Refill [facility] OBGYN Services - [address] [phone] Rach Waddell MD 111 [facility], [address] [place] [address] Medications Refill Social History Tobacco [...] Max: 4 Tablets 10 Tablet 12/16/2022 4 lidocaine 5 % (LIDODERM) 5 % patch APPLY 2 PATCH ON THE SKIN ONCE DAILY. MAY WEAR UP TO 12 HOURS 20 Patch 1 12/16/2022 3 documented in this encounter Miscellaneous Notes * Telephone Encounter - Rach Waddell MD - 12/16/2022 [id number] ESTFrom: Mine Lynn To: Office of Rach Waddell MD Sent: 12/14/2022 16:46 EST Subject: Medication Renewal Request Refills have been requested for the following medications: lidocaine 5 % (LIDODERM) 5 % patch [Rach Waddell] HYDROcodone-acetaminophen (NORCO) 5-325 mg tablet [Rach Waddell] Patient Comment: Hi Dr. Waddell, hope you are doing well. I was able to make the ten pills last me almost 4 months. I am headed to the [facility] on Monday and was hoping to get a refill in case of emergency/traveling and my period that is staring any day now. Thank you. Preferred pharmacy: [facility] - [place], [place] - [address] documented in this encounter Plan of Treatment Upcoming Encounters Date Type Department Care Team (Late st Contact Info) Description 11/18/2024 8:15 EST Office Visit [facility] Pelvic Medicine and Reconstructive Surgery - Medical Office Building [facility] [address] [place] [phone] Julia Terrell PA-C [address] [place] [address] Medical Office [facility], [address] [place] [phone] 11/25/2024 8:00 EST Rehab Therapy Visit [facility] Rehabilitation Therapy - Medical Office Building [address] [place] [address] Cira [place] DPT [address] [place] [address] [address] [place] [phone] 12/02/2024 8:00 EST Rehab Therapy Visit [facility] Rehabilitation Therapy - Medical Office [address] [address] Cira [place] DPT [address] [place] [address], [address] [place] [phone] 12/09/2024 8:00 EST Rehab Therapy Visit [facility] Rehabilitation Therapy - Medical Office Building [address] [place] [phone] Cira [place] DPT [address] [place] [address] [address] [place] [phone] 12/16/2024 9:00 EST Rehab Therapy Visit [facility] Rehabilitation Therapy - Medical Office Building 2 [place] [address] Cira [place] DPT [address] [place] [address], [facility], [address] [place] [phone] 12/23/2024 9:00 EST Rehab Therapy Visit [facility] Rehabilitation Therapy - Medical Office Building [address] [place], [place] [address] Cira [place], ROBERTO [address] [place] [address], [facility] [address] [place] [phone] documented as of this encounter Visit Diagnoses Not on filedocumented in this encounter Discontinued Medications Medication Sig Discontinue Reason Start Date End Da te lidocaine 5 % (LIDODERM) 5 % patch APPLY 2 PATCH ON THE SKIN ONCE DAILY. MAY WEAR UP TO 12 HOURS Reorder 10/06/2022 12/14/2022 HYDROcodone-acetaminophe n (NORCO) 5-325 mg tablet Take 1 Tablet by mouth every 6 hours as needed for Pain. Daily Max: 4 Tablets Reorder 10/06/2022 12/14/2022 documented as of this encounter Care Teams Head Of Store Operations Relationship Specialty Start Date End Date None, Provider PCP - General 06/25/14 08/06/23 documented as of this encounter
--- OUTSIDE RECORDS SUMMARY | 2024-11-10 02:16 | XMS_ITS | Encounter Summary ---
Author Organization [facility] Address [address] [place] [address] Care Team Providers Care Edger Liner Name Role Phone None, Provider Primary Care Provider Unavailabl e Encounter Details Date Type Department Care Team (Late st Contact Info) Description 04/05/2023 Orders Only [facility] OBGYN Services - [address] [phone] Rach Waddell MD 111 [facility], [address] [place] [address] Social History Tobacco Use Types [...] Max: 4 Tablets 10 Tablet 04/05/2023 4 documented in this encounter Plan of Treatment Upcoming Encounters Date Type Department Care Team (Late st Contact Info) Description 11/18/2024 8:15 EST Office Visit [facility] Pelvic Medicine and Reconstructive Surgery - Medical Office Building [facility] [address] [place] [address] Julia Terrell PA-C [address] [place] [address] Medical Office Building, [address] [phone] 11/25/2024 8:00 EST Rehab Therapy Visit [facility] Rehabilitation Therapy - Medical Office Building [address] [place] [address] Cira [place], KEMALT 2 [facility], [facility], [address] [place] [phone] 12/02/2024 8:00 EST Rehab Therapy Visit [facility] Rehabilitation Therapy - Medical Office Building [address] [place] [address] Cira [place], DPT [address] [place] [address] [address] [place] [phone] 12/09/2024 8:00 EST Rehab Therapy Visit [facility] Rehabilitation Therapy - Medical Office Building [address] [place] [phone] Cira [place], KEMALT [address] [place], [place] [address]s [address] [place] [phone] 12/16/2024 9:00 EST Rehab Therapy Visit [facility] Rehabilitation Therapy - Medical Office Building [address] [place] [address] Cira [place], KEMALT [address] [place], [place] [address]s [address] [place] [phone] 12/23/2024 9:00 EST Rehab Therapy Visit [facility] Rehabilitation Therapy - Medical Office Building [address] [place] [address] Cira [place], DPT [address] [place], [place] [address]s [address] [place] [phone] documented as of this encounter Visit Diagnoses Not on filedocumented in this encounter Discontinued Medications Medication Sig Discontinue Reason Start Date End Da te HYDROcodone-acetaminophe n (NORCO) 5-325 mg tablet Take 1 Tablet by mouth every 6 hours as needed for Pain. Daily Max: 4 Tablets Therapy completed 03/10/2023 04/05/2023 documented as of this encounter Care Teams Edger Liner Relationship Specialty Start Date End Date None, Provider PCP - General 06/25/14 08/06/23 documented as of this encounter
--- OUTSIDE RECORDS SUMMARY | 2024-11-10 02:16 | XMS_ITS | Encounter Summary ---
Author Organization [facility] Address [address] [facility] [place] [address] Care Team Providers Care Set Up Mechanic Coating Machines Name Role Phone None, Provider Primary Care Provider Unavailabl e Encounter Details Date Type Department Care Team (Latest Contact Info) Description 11/10/[address] [facility] [phone] Gabriel Reynaga, RADHA 6829 [facility] [address] [place] [address] Encounter for general adult medical examination without abnormal findings (Primary Dx); Underweight; Chronic pain syndrome; Vitamin D deficiency, unspecified Social History Tobacco Use Types Packs/Day [...] Description 11/18/2024 8:[address] [facility] Pelvic Medicine and Reconstructive Surgery - Medical Office Building [facility] [address] [place], [place] [phone] Julia Terrell PA-C 792 [facility] Medical Office Building, [address] [place] [phone] 11/25/2024 8:00 EST Rehab Therapy Visit [facility] Rehabilitation Therapy - Medical Office Building [address] [place], [place] [address] Cira [place] DPT 2 [facility], [address] [place] [phone] 12/02/2024 8:00 EST Rehab Therapy Visit [facility] Rehabilitation Therapy - Medical Office Building [address] [place] [address] Cira [place] DPT [address] [place] [address], [facility], [address] [place] [phone] 12/09/2024 8:00 EST Rehab Therapy Visit [facility] Rehabilitation Therapy - Medical Office Building [address] [place] [address] Cira [place] DPT [address] [place] [address], [facility], [address] [place] [phone] 12/16/2024 9:00 EST Rehab Therapy Visit [facility] Rehabilitation Therapy - Medical Office Building [address] [place] [address] Cira [place] DPT [address] [place] [address], [address] [place] [phone] 12/23/2024 9:00 EST Rehab Therapy Visit [facility] Rehabilitation Therapy - Medical Office Building [address] [place] [address] Cira [place] DPT [address] [place] [address], [address] [place] [phone] documented as of this encounter Results * (ABNORMAL) VITAMIN D (25,OH) (12/16/2022 9:09 EST) [facility] 25OH Vitamin D Tot 28(L) 30 - 100 ng/mL 12/16/2022 13:55 EST [facility] Comment: Vitamin D 25,OH Interpretive Ranges: Deficiency: ??<10.0 ng/mL Insufficiency: ??10.0 - 30.0 ng/mL Sufficiency: ??30.0 - 100.0 ng/mL Toxicity: ??>100.0 ng/mL Blood VENOUS BLOOD / Unknown Venipuncture / Unknown 12/16/2022 9:09 EST 12/16/2022 9:09 EST Gabriel Reynaga ND CHEMISTRY & BLOOD GAS ORDERAB LES Final Result [facility] [address] [place] [address] * T4 FREE (12/16/2022 9:09 EST) T4, Free 1.0 0.8 - 2.2 ng/dL 12/16/2022 11:36 EST [facility] Blood VENOUS BLOOD / Unknown Venipuncture / Unknown 12/16/2022 9:09 EST 12/16/2022 9:09 EST Gabriel Reynaga ND CHEMISTRY & BLOOD GAS ORDERAB LES Final Result Performing Organization Address [facility]/ZIP Co de Phone Number [facility] [address] [place] [address] * T3 FREE (12/16/2022 9:09 EST) T3, Free 4.4 2.8 - 5.3 pg/mL 12/16/2022 11:36 EST [facility] Blood VENOUS BLOOD / Unknown Venipuncture / Unknown 12/16/2022 9:09 EST 12/16/2022 9:09 EST Gabriel Reynaga ND CHEMISTRY & BLOOD GAS ORDERAB LES Final Result Performing Organization Address City/[facility]/ZIP Co de Phone Number [facility] [address] [place] [address] * TSH (12/16/2022 9:09 EST) TSH 0.90 0.47 - 4.68 mIU/L 12/16/2022 11:49 [facility] Blood VENOUS BLOOD / Unknown Venipuncture / Unknown 12/16/2022 9:09 EST 12/16/2022 9:09 EST Narrative [facility] - 12/16/2022 11:49 EST The results of this assay can be falsely lowered due to the consumption of Biotin. us Gabriel Reynaga ND CHEMISTRY & BLOOD GAS ORDERAB LES Final Result [facility] [address] [place] [address] * LIPID PROFILE (INCLUDES CHOLESTEROL, TRIGLYCERIDES, HDL, LDL) (12/16/2022 9:09 EST) Pathologist [facility] Cholesterol 148 <200 mg/dL 12/16/2022 11:15 [facility] Comment:Note that therapeuti c goals will differ between patients based on cardiac risk factors and current medical therapy. HDL 54 >=50 mg/dL 12/16/2022 11:15 [facility] Comment:Note that therapeuti c goals will differ between patients based on cardiac risk factors and current medical therapy. LDL, Calculated 86 <160 mg/dL 11:15 [facility] Comment:Note that therapeuti c goals will differ between patients based on cardiac risk factors and current medical therapy. Triglyceride 38 <=150 mg/dL 12/16/2022 11:15 [facility] Comment:Note that therapeuti c goals will differ between patients based on cardiac risk factors and current medical therapy. Chol/HDL Ratio 2.7 See Note 12/16/2022 11:15 [facility] Comment:No reference range h as been established for CHOL/HDL ratio. Non HDL Cholesterol 94 <160 mg/dL 12/16/2022 11:15 [facility] Comment:Note that therapeuti c goals will differ between patients based on cardiac risk factors and current medical therapy. Blood VENOUS BLOOD / Unknown Venipuncture / Unknown 12/16/2022 9:09 EST 12/16/2022 9:09 EST Gabriel Reynaga ND CHEMISTRY & BLOOD GAS ORDERAB LES Final Result Performing Organization Address [facility] Co de Phone Number [facility] [address] [place] [address] * HEMOGLOBIN A1C (12/16/2022 9:09 EST) Hemoglobin A1c 5.0 <5.7 % 12/16/2022 13:10 EST [facility] Comment: Glycemic Status References: Normal: ??<5.7% Pre-Diabetes: ??5.7% - 6.4% Diagnostic of Diabetes: ??> or = 6.5% (if confirmed) Est Avg Glucose 97 mg/dL 13:10 EST [facility] Comment:The eAG represents t he A1c result expressed as average glucose in mg/dL. Blood VENOUS BLOOD / Unknown Venipuncture / Unknown 12/16/2022 9:09 EST 12/16/2022 9:09 EST Gabriel Reynaga ND CHEMISTRY & BLOOD GAS ORDERAB LES Final Result Performing Organization Address [facility] de Phone Number [facility] [address] [place] [address] * HIGH SENSITIVITY C-REACTIVE PROTEIN (CARDIOVASCULAR DISEASE) (12/16/2022 9:09 EST) Pathologist [facility] High Sensitivity CRP <0.34 See Note mg/L 12/16/2022 11:49 EST [facility] Comment: Reference Range: ??Low Risk: ? <1.0 mg/L ??Average Risk: ?? 1.0 - 3.0 mg/L ??High Risk: ?>3.0 mg/L ??Indeterminate*: >10.0 mg/L ??*May be an indication of another source of inflammation or infection Blood VENOUS BLOOD / Unknown Venipuncture / Unknown 12/16/2022 9:09 EST 12/16/2022 9:09 EST us Gabriel Reynaga ND CHEMISTRY & BLOOD GAS ORDERAB LES Final Result [facility] [address] [place] [address] * COMPLETE BLOOD COUNT AND DIFFERENTIAL (12/16/2022 9:09 EST) WBC 4.97 4.00 - 12.40 K/cmm 12/16/2022 10:19 [facility] RBC 4.12 3.86 - 5.04 M/cmm 12/16/2022 10:19 [facility] Hemoglobin 12.1 11.6 - 15.2 gm/dL 12/16/2022 10:19 [facility] HCT 37.4 34.9 - 44.4 % 12/16/2022 10:19 [facility] MCV 91 81 - 98 fl 12/16/2022 10:19 [facility] MCH 29.4 26.7 - 33.3 pg 12/16/2022 10:19 [facility] MCHC 32.4 32.1 - 35.9 gm/dL 12/16/2022 10:19 [facility] RDW-CV 14.0 <14.7 % 12/16/2022 10:19 [facility] RDW-SD 46.8 <50.4 fl 12/16/2022 10:19 [facility] PLT 282 141 - 377 K/cmm 12/16/2022 10:19 [facility] MPV 10.9 9.5 - 12.7 fl 12/16/2022 10:19 [facility] % Neutrophils 51.2 % 12/16/2022 10:19 [facility] % Lymphocytes 40.6 % 12/16/2022 10:19 [facility] % Monocytes 6.8 % 12/16/2022 10:19 [facility] % Eosinophils 0.6 % 12/16/2022 10:19 [facility] % Basophils 0.6 % 12/16/2022 10:19 [facility] % Immature Grans 0.2 % 12/16/19 10:19 [facility] Absolute Neutrophils 2.54 2.20 - 8.85 K/cmm 12/16/2022 10:19 [facility] Absolute Lymphocytes 2.02 1.09 - 3.30 K/cmm 12/16/2022 10:19 [facility] Absolute Monocytes 0.34 0.10 - 0.80 K/cmm 12/16/2022 10:19 [facility] Absolute Eosinophils 0.03 0.03 - 0.61 K/cmm 12/16/2022 10:19 [facility] ABS Basophils 0.03 0.01 - 0.11 K/cmm 12/16/2022 10:19 [facility] Absolute Immature Grans 0.01 0.00 - 0.06 K/cmm 12/16/2022 10:19 [facility] Type of Differential: Auto 12/16/2022 10:19 [facility] Blood VENOUS BLOOD / Unknown Venipuncture / Unknown 12/16/2022 9:09 EST 12/16/2022 9:09 EST us Gabriel Reynaga ND PACKAGES & DNA PROBE ORDERABL ES Final Result [facility] [address] [place] [address] * COMPREHENSIVE METABOLIC PANEL (CMP) (12/16/2022 9:09 EST) Sodium 140 136 - 145 mmol/L 12/16/2022 11:15 [facility] Potassium 4.3 3.5 - 5.0 mmol/L 12/16/2022 11:15 [facility] Chloride 106 96 - 110 mmol/L 12/16/2022 11:15 [facility] CO2 Total 25 22 - 32 mmol/L 12/16/2022 11:15 [facility] Glucose 85 70 - 100 mg/dL 12/16/2022 11:15 [facility] BUN 16 10 - 26 mg/dL 12/16/2022 11:15 [facility] Creatinine 0.53 0.52 - 1.04 mg/dL 12/16/2022 11:15 [facility] eGFR 125 >60 mL/min/1.7 3m2 12/16/2022 11:15 [facility] Total Protein 7.3 6.3 - 8.2 g/dL 12/16/2022 11:15 [facility] Albumin 4.4 3.4 - 4.9 g/dL 12/16/2022 11:15 [facility] Alkaline Phosphatase 52 38 - 126 U/L 12/16/2022 11:15 [facility] AST 22 15 - 46 U/L 12/16/2022 11:15 [facility] ALT 15 <35 U/L 12/16/2022 11:15 [facility] Bilirubin, Total <0.5 <1.4 mg/dL 12/16/19 11:15 [facility] Calcium 8.8 8.5 - 10.5 mg/dL 12/16/2022 11:15 [facility] Albumin/Globulin Ratio 1.5 1.0 - 2.5 12/16/2022 11:15 [facility] Anion Gap 9 5 - 14 12/16/2022 11:15 [facility] Blood VENOUS BLOOD / Unknown Venipuncture / Unknown 12/16/2022 9:09 EST 12/16/2022 9:09 EST us Gabriel Reynaga ND CHEMISTRY & BLOOD GAS ORDERAB LES Final Result [facility] [address] [place] [address] documented in this encounter Visit Diagnoses Diagnosis Encounter for general adult medical examination without abnormal findings- Primary Unspecified general medical examination Underweight Chronic pain syndrome Vitamin D deficiency, unspecified documented in this encounter Care Teams Set Up Mechanic Coating Machines Relationship Specialty Start Date End Date None, Provider PCP - General 06/25/14 08/06/23 documented as of this encounter
--- OUTSIDE RECORDS SUMMARY | 2024-11-10 02:16 | XMS_ITS | Encounter Summary ---
Author Organization [facility] Address [address] [place] [address] Care Team Providers Care Casino Surveillance Officer Name Role Phone None, Provider Primary Care Provider Unavailabl e Encounter Details Date Type Department Care Team (Late st Contact Info) Description 12/16/2022 9:15 EST Phlebotomy Only [facility] Laboratory Services - [address] [address] [facility] Encounter for general adult medical examination without abnormal findings; Underweight; Chronic pain syndrome; Vitamin D deficiency, [...] Office Visit [facility] Pelvic Medicine and Reconstructive Surgery - Medical Office [facility] [address] [place] [address] Julia Terrell PA-C 7[address] [facility] Medical Office Building, [address] [place] [phone] 11/25/2024 8:00 EST Rehab Therapy Visit [facility] Rehabilitation Therapy - Medical Office Building [address] [place] [address] Cira Jackson DPT 792 [facility], [address] [place] [phone] 12/02/2024 8:00 EST Rehab Therapy Visit [facility] Rehabilitation Therapy - Medical Office Building [address] [place], [place] [address] Cira Jackson DPT [address] [place] [address], [facility] [place] [place], [address] [place] [phone] 12/09/2024 8:00 EST Rehab Therapy Visit [facility] Rehabilitation Therapy - Medical Office Building [address] [place] [address] Cira Jackson DPT [address] [place] [address], [facility] [place] [place], [address] [place] [phone] 12/16/2024 9:00 EST Rehab Therapy Visit [facility] Rehabilitation Therapy - Medical Office Building [address] [place] [address] Cira Jackson DPT [address] [place] [address], [facility] [place] [place], [address] [place] [phone] 12/23/2024 9:00 EST Rehab Therapy Visit [facility] Rehabilitation Therapy - Medical Office Building [address] [place] [address] Cira Jackson DPT [address] [place] [address], [facility] [place], [address] [place] [phone] documented as of this encounter Procedures Procedure Name Priority Date/Time Associated Diagnosis Comments VITAMIN D (25,OH) Routine 12/16/2022 9:0 9 EST Encounter for general adult medical examination without abnormal findings Underweight Chronic pain syndrome Vitamin D deficiency, unspecified COMPLETE BLOOD COUNT AND DIFFERENTIAL Routine 12/16/2022 9:09 EST Encounter for general adult medical examination without abnormal findings Underweight Chronic pain syndrome Vitamin D deficiency, unspecified HIGH SENSITIVITY C-REACTIVE PROTEIN (CARDIOVASCULAR DISEASE) Routine 12/16/2022 9:09 EST Encounter for general adult medical examination without abnormal findings Underweight Chronic pain syndrome Vitamin D deficiency, unspecified T3 FREE Routine 12/16/2022 9:09 EST Encounter for general adult medical examination without abnormal findings Underweight Chronic pain syndrome Vitamin D deficiency, unspecified TSH Routine 12/16/2022 9:09 EST Encounter for general adult medical examination without abnormal findings Underweight Chronic pain syndrome Vitamin D deficiency, unspecified T4 FREE Routine 12/16/2022 9:09 EST Encounter for general adult medical examination without abnormal findings Underweight Chronic pain syndrome Vitamin D deficiency, unspecified HEMOGLOBIN A1C Routine 12/16/2022 9:09 EST Encounter for general adult medical examination without abnormal findings Underweight Chronic pain syndrome Vitamin D deficiency, unspecified LIPID PROFILE (INCLUDES CHOLESTEROL, TRIGLYCERIDES, HDL, LDL) Routine 12/16/2022 9:09 EST Encounter for general adult medical examination without abnormal findings Underweight Chronic pain syndrome Vitamin D deficiency, unspecified COMPREHENSIVE METABOLIC PANEL (CMP) Routine 12/16/2022 9:09 EST Encounter for general adult medical examination without abnormal findings Underweight Chronic pain syndrome Vitamin D deficiency, unspecified documented in this encounter Results * (ABNORMAL) VITAMIN D (25,OH) (12/16/2022 9:09 EST) [facility] 25OH Vitamin D Tot 28(L) 30 - 100 ng/mL 12/16/2022 13:55 EST [facility] Comment: Vitamin D 25,OH Interpretive Ranges: Deficiency: ??<10.0 ng/mL Insufficiency: ??10.0 - 30.0 ng/mL Sufficiency: ??30.0 - 100.0 ng/mL Toxicity: ??>100.0 ng/mL Blood VENOUS BLOOD / Unknown Venipuncture / Unknown 12/16/2022 9:09 EST 12/16/2022 9:09 EST Gabriel Reynaga ND CHEMISTRY & BLOOD GAS ORDERAB LES Final Result Performing Organization Address City/[facility]/ZIP Co de Phone Number [facility] [address] [place] [address] * T4 FREE (12/16/2022 9:09 EST) T4, Free 1.0 0.8 - 2.2 ng/dL 12/16/2022 11:36 EST [facility] Blood VENOUS BLOOD / Unknown Venipuncture / Unknown 12/16/2022 9:09 EST 12/16/2022 9:09 EST Gabriel Reynaga ND CHEMISTRY & BLOOD GAS ORDERAB LES Final Result Performing Organization Address [facility] Co de Phone Number [facility] [address] [place] [address] * T3 FREE (12/16/2022 9:09 EST) T3, Free 4.4 2.8 - 5.3 pg/mL 12/16/2022 11:36 EST [facility] Blood VENOUS BLOOD / Unknown Venipuncture / Unknown 12/16/2022 9:09 EST 12/16/2022 9:09 EST Gabriel Reynaga ND CHEMISTRY & BLOOD GAS ORDERAB LES Final Result Performing Organization Address City/[facility]/ZIP Co de Phone Number [facility] [address] [place] [phone] * TSH (12/16/2022 9:09 EST) TSH 0.90 0.47 - 4.68 mIU/L 12/16/2022 11:49 EST [facility] Blood VENOUS BLOOD / Unknown Venipuncture / Unknown 12/16/2022 9:09 EST 12/16/2022 9:09 EST Narrative [facility] - 12/16/2022 11:49 EST The results of this assay can be falsely lowered due to the consumption of Biotin. us Gabriel Reynaga ND CHEMISTRY & BLOOD GAS ORDERAB LES Final Result Performing Organization Address [facility]/ZIP Co de Phone Number [facility] [address] [place] [address] * LIPID PROFILE (INCLUDES CHOLESTEROL, TRIGLYCERIDES, HDL, LDL) (12/16/2022 9:09 EST) Cholesterol 148 <200 mg/dL 12/16/2022 11:15 [facility] Comment:Note that therapeuti c goals will differ between patients based on cardiac risk factors and current medical therapy. HDL 54 >=50 mg/dL 12/16/2022 11:15 [facility] Comment:Note that therapeuti c goals will differ between patients based on cardiac risk factors and current medical therapy. LDL, Calculated 86 <160 mg/dL 11:15 [facility] Comment:Note that therapeuti c goals will differ between patients based on cardiac risk factors and current medical therapy. Triglyceride 38 <=150 mg/dL 12/16/2022 11:15 [facility] Comment:Note that therapeuti c goals will differ between patients based on cardiac risk factors and current medical therapy. Chol/HDL Ratio 2.7 See Note 12/16/2022 11:15 [facility] Comment:No reference range h as been established for CHOL/HDL ratio. Non HDL Cholesterol 94 <160 mg/dL 12/16/2022 11:15 [facility] Comment:Note that therapeuti c goals will differ between patients based on cardiac risk factors and current medical therapy. Blood VENOUS BLOOD / Unknown Venipuncture / Unknown 12/16/2022 9:09 EST 12/16/2022 9:09 EST us Gabriel Reynaga ND CHEMISTRY & BLOOD GAS ORDERAB LES Final Result Performing Organization Address [facility]/ZIP Co de Phone Number [facility] [address] [place] [address] * HEMOGLOBIN A1C (12/16/2022 9:09 EST) [facility] Hemoglobin A1c 5.0 <5.7 % 12/16/2022 13:10 EST [facility] Comment: Glycemic Status References: Normal: ??<5.7% Pre-Diabetes: ??5.7% - 6.4% Diagnostic of Diabetes: ??> or = 6.5% (if confirmed) Est Avg Glucose 97 mg/dL 13:10 EST [facility] Comment:The eAG represents t he A1c result expressed as average glucose in mg/dL. Blood VENOUS BLOOD / Unknown Venipuncture / Unknown 12/16/2022 9:09 EST 12/16/2022 9:09 EST Gabriel Reynaga ND CHEMISTRY & BLOOD GAS ORDERAB LES Final Result Performing Organization Address [facility] de Phone Number [facility] [address] [place] [address] * HIGH SENSITIVITY C-REACTIVE PROTEIN (CARDIOVASCULAR DISEASE) (12/16/2022 9:09 EST) [facility] High Sensitivity CRP <0.34 See Note mg/L 12/16/2022 11:49 [facility] Comment: Reference Range: ??Low [...] ORDERAB LES Final Result Performing Organization Address [facility] de Phone Number [facility] [address] [place] [address] * COMPLETE BLOOD COUNT AND DIFFERENTIAL (12/16/2022 9:09 [facility]) WBC 4.97 4.00 - 12.40 K/cmm 12/16/2022 10:19 [facility] RBC 4.12 3.86 - 5.04 M/cmm 12/16/2022 10:19 [facility] Hemoglobin 12.1 11.6 - 15.2 gm/dL 12/16/2022 10:19 [facility] HCT 37.4 34.9 - 44.4 % 12/16/2022 10:19 [facility] MCV 91 81 - 98 fl 12/16/2022 10:19 [facility] MCH 29.4 26.7 - 33.3 pg 12/16/2022 10:19 [facility] MCHC 32.4 32.1 - 35.9 gm/dL 12/16/2022 10:19 [facility] RDW-CV 14.0 <14.7 % 12/16/2022 10:19 [facility] RDW-SD 46.8 <50.4 fl 12/16/2022 10:19 [facility] PLT 282 141 - 377 K/cmm 12/16/2022 10:19 [facility] MPV 10.9 9.5 - 12.7 fl 12/16/2022 10:19 [facility] % Neutrophils 51.2 % 12/16/2022 10:19 [facility] % Lymphocytes 40.6 % 12/16/2022 10:19 [facility] % Monocytes 6.8 % 12/16/2022 10:19 [facility] % Eosinophils 0.6 % 12/16/2022 10:19 [facility] % Basophils 0.6 % 12/16/2022 10:19 [facility] % Immature Grans 0.2 % 12/16/19 10:19 [facility] Absolute Neutrophils 2.54 2.20 - 8.85 K/cmm 12/16/2022 10:19 [facility] Absolute Lymphocytes 2.02 1.09 - 3.30 K/cmm 12/16/2022 10:19 [facility] Absolute Monocytes 0.34 0.10 - 0.80 K/cmm 12/16/2022 10:19 [facility] Absolute Eosinophils 0.03 0.03 - 0.61 K/cmm 12/16/2022 10:19 [facility] ABS Basophils 0.03 0.01 - 0.11 K/cmm 12/16/2022 10:19 [facility] Absolute Immature Grans 0.01 0.00 - 0.06 K/cmm 12/16/2022 10:19 [facility] Type of Differential: Auto 12/16/2022 10:19 [facility] Blood VENOUS BLOOD / Unknown Venipuncture / Unknown 12/16/2022 9:09 EST 12/16/2022 9:09 EST us Gabriel Reynaga ND PACKAGES & DNA PROBE ORDERABL ES Final Result [facility] [address] [place] [address] * COMPREHENSIVE METABOLIC PANEL (CMP) (12/16/2022 9:09 EST) Sodium 140 136 - 145 mmol/L 12/16/2022 11:15 [facility] Potassium 4.3 3.5 - 5.0 mmol/L 12/16/2022 11:15 [facility] Chloride 106 96 - 110 mmol/L 12/16/2022 11:15 [facility] CO2 Total 25 22 - 32 mmol/L 12/16/2022 11:15 [facility] Glucose 85 70 - 100 mg/dL 12/16/2022 11:15 [facility] BUN 16 10 - 26 mg/dL 12/16/2022 11:15 [facility] Creatinine 0.53 0.52 - 1.04 mg/dL 12/16/2022 11:15 [facility] eGFR 125 >60 mL/min/1.7 3m2 12/16/2022 11:15 [facility] Total Protein 7.3 6.3 - 8.2 g/dL 12/16/2022 11:15 [facility] Albumin 4.4 3.4 - 4.9 g/dL 12/16/2022 11:15 [facility] Alkaline Phosphatase 52 38 - 126 U/L 12/16/2022 11:15 [facility] AST 22 15 - 46 U/L 12/16/2022 11:15 [facility] ALT 15 <35 U/L 12/16/2022 11:15 [facility] Bilirubin, Total <0.5 <1.4 mg/dL 12/16/19 11:15 [facility] Calcium 8.8 8.5 - 10.5 mg/dL 12/16/2022 11:15 [facility] Albumin/Globulin Ratio 1.5 1.0 - 2.5 12/16/2022 11:15 [facility] Anion Gap 9 5 - 14 12/16/2022 11:15 [facility] Blood VENOUS BLOOD / Unknown Venipuncture / Unknown 12/16/2022 9:09 EST 12/16/2022 9:09 EST us Gabriel Reynaga ND CHEMISTRY & BLOOD GAS ORDERAB LES Final Result Performing Organization Address City/State/[facility] Co de Phone Number [facility] [address] [place] [address] documented in this encounter Visit Diagnoses Diagnosis Encounter for general adult medical examination without abnormal findings Unspecified general medical examination Underweight Chronic pain syndrome Vitamin D deficiency, unspecified documented in this encounter Care Teams Casino Surveillance Officer Relationship Specialty Start Date End Date None, Provider PCP - General 06/25/14 08/06/23 documented as of this encounter
--- OUTSIDE RECORDS SUMMARY | 2024-11-10 02:17 | XMS_ITS | Encounter Summary ---
Author Organization [facility] Address [address] [place] [address] Care Team Providers Care Hcc Coders Name Role Phone None, Provider Primary Care Provider Unavailabl e Encounter Details Date Type Department Care Team (Late st Contact Info) Description 11/01/2021 Orders Only [facility] [address] [place], [place] [address] Pauline Stark MD 111 [facility], [address] [place] [address] Weakness of right lower extremity (Primary Dx) Social History Tobacco Use Types [...] Exposure Response Date Recorded In the last month, have you been in contact with someone who was confirmed or suspected to have Coronavirus / COVID-19? Yes 10/25/2021 10:15 EST documented as of this encounter Functional Status [...] and Reconstructive Surgery - Medical Office Building [facility] [address] [place] [address] Julia Terrell PA-C 2 [facility] Medical Office Building, [address] [place] [address] 11/25/2024 8:00 EST Rehab Therapy Visit [facility] Rehabilitation Therapy - Medical Office Building [address] [place], [place] [id number] Cira Jackson, KEMALT 7[address] [facility], [facility] [place], [address] [place] [phone] 12/02/2024 8:00 EST Rehab Therapy Visit [facility] Rehabilitation Therapy - Medical Office Building [address] [place] [address] Cira Jackson, DPT [address] [place] [address], [facility] [place], [address] [place] [phone] 12/09/2024 8:00 EST Rehab Therapy Visit [facility] Rehabilitation Therapy - Medical Office Building [address] [place] [address] Cira Jackson, DPT [address] [place] [address], [facility], [address] [place] [phone] 12/16/2024 9:00 EST Rehab Therapy Visit [facility] Rehabilitation Therapy - Medical Office [address] [place] [address] Cira Jackson, DPT [address] [place] [address], [facility] [place], [address] [place] [phone] 12/23/2024 9:00 EST Rehab Therapy Visit [facility] Rehabilitation Therapy - Medical Office Building [address] [place] [address] Cira Jackson, DPT [address] [place] [address], [facility], [address] [place] [phone] documented as of this encounter Visit Diagnoses Diagnosis Weakness of right lower extremity- Primary documented in this encounter Care Teams Hcc Coders Relationship Specialty Start Date End Date None, Provider PCP - General 06/25/14 08/06/23 documented as of this encounter
--- OUTSIDE RECORDS SUMMARY | 2024-11-10 02:17 | XMS_ITS | Encounter Summary ---
Author Organization [facility] Address [address] [place] [address] Care Team Providers Care Executive Recruiter Name Role Phone None, Provider Primary Care Provider Unavailabl e Encounter Details Date Type Department Care Team (Late st Contact Info) Description 06/15/2022 Orders Only [facility] OBGYN Services - [address] [address] Rach Waddell MD 111 [facility], [address] [place] [address] Social History Tobacco Use Types [...] Pain. Daily Max: 4 Tablets 15 Tablet 06/15/2022 3 documented in this encounter Progress Notes * Rach Waddell MD - 06/15/2022 1230 EDT Ok to refill for 2 months only until pain clinic appointment documented in this encounter Plan of Treatment Upcoming Encounters Date Type Department Care Team (Late st Contact Info) Description 11/18/2024 8:15 EST Office Visit [facility] Pelvic Medicine and Reconstructive Surgery - Medical Office Building [address] [address] Julia Terrell PA-C 2 [facility] Medical Office [facility], [address] [address] 11/25/2024 8:00 EST Rehab Therapy Visit [facility] Rehabilitation Therapy - Medical Office Building [address] [place] [address] Cira Jackson, ROBERTO [address] [place] [address], [facility], [address] [place] [phone] 12/02/2024 8:00 EST Rehab Therapy Visit [facility] Rehabilitation Therapy - Medical Office Building [address] [place] [address] Cira Jackson, ROBERTO [address] [place] [address], [facility], [address] [place] [phone] 12/09/2024 8:00 EST Rehab Therapy Visit [facility] Rehabilitation Therapy - Medical Office [address] [address] Cira Jackson, ROBERTO [address] [place] [address], [facility], [address] [place] [phone] 12/16/2024 9:00 EST Rehab Therapy Visit [facility] Rehabilitation Therapy - Medical Office Building [address] [place] [address] Cira Jackson, DPT [address] [place] [address], [facility], [address] [place] [phone] 12/23/2024 9:00 EST Rehab Therapy Visit [facility] Rehabilitation Therapy - Medical Office Building [address] [place] [address] Cira Jackson, DPT [address] [place] [address], [facility], [address] [place] [address] documented as of this encounter Visit Diagnoses Not on filedocumented in this encounter Care Teams Executive Recruiter Relationship Specialty Start Date End Date None, Provider PCP - General 06/25/14 08/06/23 documented as of this encounter
--- OUTSIDE RECORDS SUMMARY | 2024-11-10 02:17 | XMS_ITS | Encounter Summary ---
Author Organization [facility] Address [address] [place] [address] Care Team Providers Care Women'S Ministry Director Name Role Phone None, Provider Primary Care Provider Unavailabl e Reason for Visit * Reason Onset Date Comments Medications Refill 07/19/2022 Medications Refill 08/16/2022 Encounter Details Date Type Department Care Team (Late st Contact Info) Description 07/19/2022 Telephone [facility] OBGYN Services - [facility] [address], [place] [id number] Rach Waddell MD [address] [place] [address], [facility] [address] [place] [address] Medications Refill; Medications Refill Social History Tobacco Use Types [...] Refills Last Filled Start Date End Date levonorgestrel-eth inyl estradiol (NORDETTE) 0.15-0.03 mg per tablet Take 1 Tablet by mouth daily. 84 Tablet 1 08/17/2022 05/26/2023 documented in this encounter Miscellaneous Notes * Addendum Note - Daniel Christensen RN - 08/17/2022901 EDTAddended by: DANIEL CHRISTENSEN on: 08/17/2022 09:02 Modules accepted: Orders * Telephone Encounter - Daniel Christensen RN - 07/22/2022 1243 April Miller RN 07/22/2022 12:33 EDT ----- Message ----- From: Mine Lynn Sent: 07/22/2022 12:30 EDT To: [facility] Cnm Nurse Subject: Medication Renewal Request Checking in on this refill - I started Katie this week and I am seeing Dr. Santillan at [facility] for a urinary check up in October 2022 because of my pelvic floor dysfunction; the pain has been terrible during period s. Thank you documented in this encounter Plan of Treatment Upcoming Encounters Date Type Department Care Team (Late st Contact Info) Description 11/18/2024 8:15 EST Office Visit [facility] Pelvic Medicine and Reconstructive Surgery - Medical Office Building [facility] [address] [place] [id number] Julia Terrell PA-C [address] [place] [address] Medical Office [facility], [address] [place] [phone] 11/25/2024 8:00 EST Rehab Therapy Visit [facility] Rehabilitation Therapy - Medical Office Building [address] [place] [address] Cira Jackson DPT [address] [place] [address], [address] [place] [phone] 12/02/2024 8:00 EST Rehab Therapy Visit [facility] Rehabilitation Therapy - Medical Office Building [address] [place] [address] Cira Jackson DPT [address] [place] [address], [address] [place] [phone] 12/09/2024 8:00 EST Rehab Therapy Visit [facility] Rehabilitation Therapy - Medical Office Building [address] [place] [id number] Cira Jackson DPT [address] [place] [address], [address] [place] [phone] 12/16/2024 9:00 EST Rehab Therapy Visit [facility] Rehabilitation Therapy - Medical Office Building [address] [place] [address] Cira Jackson, DPT 2 [facility], [facility], [address] [place] [phone] 12/23/2024 9:00 EST Rehab Therapy Visit [facility] Rehabilitation Therapy - Medical Office Building [address] [place] [address] Cira Jackson, KEMALT [address] [place] [address], [facility], [address] [place] [phone] documented as of this encounter Visit Diagnoses Not on filedocumented in this encounter Discontinued Medications Medication Sig Discontinue Reason Start Date End Da te levonorgestrel-ethinyl estradiol (NORDETTE) 0.15-0.03 mg per tablet Take 1 Tablet by mouth daily. Reorder 08/17/2022 documented as of this encounter Historical Medications * This list may reflect changes made after this encounter. lidocaine 5 % (LIDODERM) 5 % patch APPLY 2 PATCH ON THE SKIN ONCE DAILY. MAY WEAR UP TO 12 HOURS 06/27/2022 08/16/2022 levonorgestrel-et hinyl estradiol (NORDETTE) 0.15-0.03 mg per tablet Take 1 Tablet by mouth daily. 08/17/2022 added in this encounter Care Teams Women'S Ministry Director Relationship Specialty Start Date End Date None, Provider PCP - General 06/25/14 08/06/23 documented as of this encounter
--- OUTSIDE RECORDS SUMMARY | 2024-11-10 02:17 | XMS_ITS | Encounter Summary ---
Author Organization [facility] Address [address] [place] [address] Care Team Providers Care Wash Helper Name Role Phone None, Provider Primary Care Provider Rach Stacy MD Unavailable [phone] Ariana Dill DNP Primary Care Provider [phone] Encounter Details Date Type Department Care Team (Late st Contact Info) Description 10/31/2021 Telephone [facility] Primary Care [facility] [place] [address] [place], [place] [address] None, Provider Social History Tobacco Use Types Packs/Day Years [...] Info) Description 11/18/2024 8:15 EST Office Visit [facility] Pelvic Medicine and Reconstructive Surgery - Medical Office Building [facility] [address] [place] [address] Julia Terrell PA-C 2 [facility] Medical Office Building, [address] [place] [phone] 11/25/2024 8:00 EST Rehab Therapy Visit [facility] Rehabilitation Therapy - Medical Office Building [address] [place], [place] [phone] Cira Jackson DPT 7[address] [facility], [facility], [address] [place] [phone] 12/02/2024 8:00 EST Rehab Therapy Visit [facility] Rehabilitation Therapy - Medical Office Building [address] [place] [address] Cira Jackson, DPT [address] [place] [address], [facility], [address] [place] [phone] 12/09/2024 8:00 EST Rehab Therapy Visit [facility] Rehabilitation Therapy - Medical Office Building [address] [place] [address] Cira Jackson, KEMALT [address] [place] [address], [facility], [address] [place] [phone] 12/16/2024 9:00 EST Rehab Therapy Visit [facility] Rehabilitation Therapy - Medical Office Building [address] [place] [address] Cira Jackson, DPT [address] [place] [address], [facility], [address] [place] [phone] 12/23/2024 9:00 EST Rehab Therapy Visit [facility] Rehabilitation Therapy - Medical Office [address] [address] Cira Jackson, DPT [address] [place] [address], [facility], [address] [place] [phone] documented as of this encounter Visit Diagnoses Not on filedocumented in this encounter Additional Health Concerns Infection Onset Date Last Indicated Resolved Time R/O COVID 01/11/2024 01/11/2024 01/11/2024 22:3 5 EDT documented as of this encounter Care Teams Wash Helper Relationship Specialty Start Date End Date None, Provider PCP - General 06/25/14 08/06/23 Ariana Dill DNP [address] [place] [address] PCP - General 08/07/23 Rach Waddell MD [address] [facility], [address] [place] [phone] German Teacher Obstetrics and Gynecology 05/10/23 documented as of this encounter
--- OUTSIDE RECORDS SUMMARY | 2024-11-10 02:17 | XMS_ITS | Encounter Summary ---
Author Organization [facility] Address [address] [place] [address] Care Team Providers Care Ct Tech Name Role Phone None, Provider Primary Care Provider Rach Stacy MD Unavailable Ariana Dill DNP Primary Care Provider [phone] Encounter Details Date Type Department Care Team (Late st Contact Info) Description 10/14/2021 Lab Requisition [facility] Pathology & Laboratory Medicine - [address] [address] Joe Chakraborty MD [address] [facility], [address] [place] [address] Encounter for screening for Streptococcus B; Encounter for supervision of other normal , third trimester; 35 weeks gestation of Social History Tobacco Use Types Packs/Day Years Used Date Smoking Tobacco: Never Smokeless Tobacco: Never Alcohol Use Standard Drinks/Week Comments No 0 (1 standard drink = 0.6 oz pur e alcohol) social Interpersonal Safety Answer Date Record ed Physically [...] hearing? Answer Date of Assessment Author No 11/27/2015 12:00 Camacho Elizabeth RN * Are you blind or do you have serious difficulty seeing, even when wearing glasses? Answer Date of Assessment Author No 11/27/2015 12:00 Camacho Elizabeth RN * Do you have serious difficulty walking or climbing stairs? (5 years old or older) Answer Date of Assessment Author No 11/27/2015 12:00 Camacho Elizabeth RN * Do you have difficulty dressing or bathing? (5 years old or older) Answer Date of Assessment Author No 11/27/2015 12:00 Camacho Elizabeth RN * Because of a physical, mental, or emotional condition, do you have difficulty doing errands alone such as visiting a doctor's office or shopping? (15 years old or older) Answer Date of Assessment Author No 11/27/2015 12:00 Camacho Elizabeth RN documented as of this encounter Mental Status * Because of a physical, mental, or emotional condition, do you have serious difficulty concentrating, remembering, or making decisions? (5 years old or older) Answer Entry Date Author No 11/27/2015 12:00 Camacho Elizabeth RN documented in this encounter Plan of Treatment Upcoming Encounters Date Type Department Care Team (Late st Contact Info) Description 11/18/2024 8:15 EST Office Visit [facility] Pelvic Medicine and Reconstructive Surgery - Medical Office Building [facility] [address] [place], [place] [phone] Julia Terrell PA-C [address] [place] [address] Medical Office Building, [address] [place] [phone] 11/25/2024 8:00 EST Rehab Therapy Visit [facility] Rehabilitation Therapy - Medical Office Building [address] [place], [place] [address] Cira Jackson DPT 7[address] [facility], [facility], [address] [place] [phone] 12/02/2024 8:00 EST Rehab Therapy Visit [facility] Rehabilitation Therapy - Medical Office Building [address] [place] [address] Cira Jackson, DPT [address] [place] [address], [facility], [address] [place] [phone] 12/09/2024 8:00 EST Rehab Therapy Visit [facility] Rehabilitation Therapy - Medical Office Building [address] [place] [address] Cira Jackson, KEMALT [address] [place] [address], [facility], [address] [place] [phone] 12/16/2024 9:00 EST Rehab Therapy Visit [facility] Rehabilitation Therapy - Medical Office Building [address] [place] [address] Cira Jackson, DPT [address] [place] [address], [facility], [address] [place] [phone] 12/23/2024 9:00 EST Rehab Therapy Visit [facility] Rehabilitation [facility] - Medical Office Building [address] [place] [address] Cira Jackson, DPT [address] [place] [address], [facility], [address] [place] [phone] documented as of this encounter Procedures Procedure Name Priority Date/Time Associated Diagnosis Comments GROUP B STREP PCR Routine 10/14/2021 15: 33 EST Encounter for screening for Streptococcus B Encounter for supervision of other normal , third trimester 35 weeks gestation of documented in this encounter Results * GROUP B STREP PCR (10/14/2021 15:33 EST) Group B Strep PCR Negative Negative 10/16/2021 14:02 EST [facility] Swab DOUCHE WITH RECTAL AND VAGINAL FITTINGS / Unknown 10/14/2021 15:33 EST 10/14/2021 18:56 EST us Joe Chakraborty MD MICROBIOLOGY - GENERAL ORD ERABLES Final Result [facility] [address] [place] [address] documented in this encounter Visit Diagnoses Diagnosis Encounter for screening for Streptococcus B Encounter for supervision of other normal , third trimester 35 weeks gestation of state, incidental documented in this encounter Additional Health Concerns Infection Onset Date Last Indicated Resolved Time R/O COVID 01/11/2024 01/11/2024 01/11/2024 22:3 5 EDT documented as of this encounter Care Teams Ct Tech Relationship Specialty Start Date End Date None, Provider PCP - General 06/25/14 08/06/23 Ariana Dill DNP [address] [place] [address] PCP - General 08/07/23 Rach Waddell MD [address] [facility], [address] [place] [address] Kindergarten Teacher Obstetrics and Gynecology 05/10/23 documented as of this encounter
--- OUTSIDE RECORDS SUMMARY | 2024-11-10 02:17 | XMS_ITS | Encounter Summary ---
Author Organization [facility] Address [address] [place] [address] Care Team Providers Care Music Agent Name Role Phone None, Provider Primary Care Provider Unavailabl e Reason for Visit * Reason Onset Date Comments Medication Problem 02/25/2022 Encounter Details Date Type Department Care Team (Late st Contact Info) Description 02/25/2022 Telephone [facility] OBGYN Services - [facility] [address] [place], [place] [address] Rach Waddell MD [address] [facility], [address] [place] [address] Medication Problem Social History Tobacco Use Types Packs/Day Years [...] Refills Last Filled Start Date End Date ketOROLAC (TORADOL) 10 mg tablet Take 1 Tablet by mouth every 6 hours for 3 days. 12 Tablet 2 02/25/2022 02/28/2022 documented in this encounter Miscellaneous Notes * Telephone Encounter - Rach Waddell MD - 02/25/2022 4619 EDT Explained, I am not comfortable with a Lortab script every month. I am concerned that narcotic is not a good choice for tailbone pain. Rec Toradol 3 days per month. If not helpful, might consider Tramadol. documented in this encounter Plan of Treatment Upcoming Encounters Date Type Department Care Team (Late st Contact Info) Description 11/18/2024 8:15 EST Office Visit [facility] Pelvic Medicine and Reconstructive Surgery - Medical Office [address] [address] Julia Terrell PA-C 2 [facility] Medical Office Building, [address] [place] [phone] 11/25/2024 8:00 EST Rehab Therapy Visit [facility] Rehabilitation Therapy - Medical Office Building [address] [place] [address] Cira Jackson, KEMALT [address] [place] [address], [facility], [address] [place] [phone] 12/02/2024 8:00 EST Rehab Therapy Visit [facility] - Medical Office Building [address] [place] [address] Cira Jackson, KEMALT [address] [place] [address], [address] [place] [phone] 12/09/2024 8:00 EST Rehab Therapy Visit [facility] Rehabilitation Therapy - Medical Office Building [address] [place] [address] Cira Jackson, DPT [address] [place] [address], [address] [place] [phone] 12/16/2024 9:00 EST Rehab Therapy Visit [facility] Rehabilitation Therapy - Medical Office Building [address] [place] [address] Cira Jackson, DPT [address] [place] [address], [address] [place] [phone] 12/23/2024 9:00 EST Rehab Therapy Visit [facility] Rehabilitation Therapy - Medical Office Building [address] [place], [place] [phone] Cira Jackson, ROBERTO 7[address] [facility], [facility], [address] [place] [address] documented as of this encounter Visit Diagnoses Not on filedocumented in this encounter Discontinued Medications Medication Sig Discontinue Reason Start Date End Da te ibuprofen (MOTRIN) 800 mg tablet Take 1 Tablet by mouth every 8 hours as needed for Pain. Alternate therapy 10/29/2021 02/25/2022 documented as of this encounter Care Teams Music Agent Relationship Specialty Start Date End Date None, Provider PCP - General 06/25/14 08/06/23 documented as of this encounter
--- OUTSIDE RECORDS SUMMARY | 2024-11-10 02:17 | XMS_ITS | Encounter Summary ---
Author Organization [facility] Address [address] [place] [address] Care Team Providers Care Indoor Landscape Architect Name Role Phone None, Provider Primary Care Provider Unavailabl e Reason for Referral * Specialty Diagnoses / Procedures [facility] Referred To Contact Itzel Simons MD Phone: tel: fax: Referral ID Status Reason Start Date Expiration Date Visits Re quested Visits Authorized Encounter Details Date Type Department Care Team (Late st Contact Info) Description 10/25/2021 10:05 EST - 10/25/2021 12:16 EST Hospital Encounter [facility] [address] [place], [place] [id number] Rach Waddell MD [address] [phone] Ashok Salter MD [address] [phone] Discharge Disposition: Home or Self Care Social History Tobacco Use Types Packs/Day Years Used Date Smoking Tobacco: Never Smokeless Tobacco: Never Alcohol Use Standard Drinks/Week Comments No 0 (1 standard drink = 0.6 oz pur e alcohol) social Interpersonal Safety Answer Date Record ed Physically Hurt Never 05/24/2020 Verbally Threaten Not on file 05/24/2020 Comments Yes Sex and Gender Information Value Date Recorded [...] 10:15 EST documented as of this encounter Last Filed Vital Signs Vital Sign Reading Time Taken Comments Blood Pressure 119/78 10/25/2021 1016 EST Pulse - - Temperature 36.9 ??C (98.5 ??F) 10/25/2021 1016 EST Respiratory Rate 21 10/25/2021 1016 EST Oxygen Saturation - - Inhaled Oxygen [...] Camacho Elizabeth RN documented in this encounter Discharge Instructions * Discharge Instr - AVS First Page* Itzel Simons MD - 10/25/2021 11:59 EST Please keep your upcoming appointment with [facility] on 10/28/21. documented in this encounter Medications at Time of Discharge albuterol 90 mcg/actuation inhaler Inhale 2 Puffs as directed every 4 hours. 1 Inhaler 0 08/10/2014 inhalational spacing device (BREATHERITE MDI SPACER) Use with a metered dose inhaler, as directed. May be dispensed with mask as appropriate.. 1 Each 0 08/10/2014 oxyCODONE (ROXICODONE) 5 mg immediate release tablet Take 1 Tablet by mouth every 12 hours as needed for up to 5 doses for Pain. Daily Max: 10 mg 5 Tablet 10/25/2021 2 documented as of this encounter Ordered Prescriptions Prescription Sig Dispense Quantity Refills Last Filled Start Date End Date oxyCODONE (ROXICODONE) 5 mg immediate release tablet Take 1 Tablet by mouth every 12 hours as needed for up to 5 doses for Pain. Daily Max: 10 mg 5 Tablet 10/25/2021 10/29/2021 documented in this encounter Discharge Disposition Disposition Code Departure Means Destination Home or Self Snf documented in this encounter Progress Notes * Itzel Simons MD - 10/25/2021 1135 EST OB Triage Note Mine Lynn is a 30 y.o. at 37w2d gestation (dated by LMP) CC: Pelvic and sacral pain HPI: Mine presents today with worsening pelvic and sacral pain x 12 hours that feels like a squeezing sensation that extends from her lower back to her inguinal folds and into her thighs bilaterally. Shehas chronic pelvic pain secondary to coccyx fracture 5 years ago which has been treated with pelvicPT, chiropractors, athletic trainers, lidocaine patches, and opioids (vicodin, percocet, most recently oxycodone). Last dose of oxycodone was before [place] and she does not have any pills left. Tried taking one dose of tylenol last night which did not help. Her pain became so severe overnight that she was crying and screaming in pain. The pain was a 7/10 at rest and got to a 10/10 with BraxtonHicks contractions. This level of pain was new for her so she called her OB office who, due to a possible recent COVID exposure, asked her to come to the hospital. Her son (5 years old) had a recent positive at-home covid test with a subsequent negative PCR test. Mine denies any COVID symptoms including cough, fever, congestion, SOB today. 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: treated with PT, AT, chiro, narcotics as above - planning for primary C/S, scheduled for 11/05/21 ROS: Negative except as stated in HPI O: Heart Rate: [83 BPM] Patient Vitals for the past 24 hrs: BP Temp Temp src Resp 10/25/21 1016 119/78 36.9 ??C (98.5 ??F) Tympanic 21 Gen: A&O, in mild distress secondary to pain, appears anxious CV: RRR, no murmurs/rubs/gallops Pulm: no increased work of breathing, lungs CTAB Abd: appropriately gravid, uterus soft, non-tender, non-irritable, cephalic Neuro: DTR 2+ bilaterally Ext: minimal amount of lower extremity edema bilaterally SSE: deferred SVE: deferred [place]: areli intermittently, from q 5 minutes to >10 minutes NST: baseline FHR 135bpm, mod variability, accels +, no decels A/P: 30 y.o. at 37w2d gestation (dated by LMP) here with worsening pelvic/sacral pain that was unmanageable at home. Vitals WNL. NST reactive. Overall maternal and status reassuring. Acute on chronic pelvic pain: Patient's pain is impeding her from completing daily function, therefore she needs assistance with adequate pain management. VPMS reviewed; it appears that she has gotten multiple short-term scripts for opioids that have helped her deal with these pain episodes. Last short-term script was 10/14 for 5 tablets of oxycodone. Discussed with Mine that since she needed this level of pain medication in the recent past, she may need this again. Will send this same script (oxycodone 5 mg, 5 tablets) with the hope that it helps her manage her pain to get her to her f/u OBappointment on 10/28 (in 3 days) or to her C/S date next week. She should re-evaluate her pain with her OB provider on 10/28 and knows that she can always call their office or present to the ED/L&D if symptoms worsen. At the time of discharge, Mine's pain had already improved without intervention and her anxiety felt better as well. - Dispo: Home - Wrote for 5 tablets of oxycodone 5 mg for pain control. Encouraged Mine to use other methods that help improve her pain (alternating heat/ice on lower back, repositioning, stretching) - Follow-up: Routine care (next APV scheduled for 10/28) - Precautions: Patient to return when suspects active or if any acute concerns in the meantime Concern for COVID exposure: Patient's son had positive rapid test at home but his PCR was negative.His symptoms have resolved and Mine never had symptoms. Low suspicion for COVID infection at this time, therefore COVID test not indicated today. If Mine develops sx she should call her PCP or go to drive- thru testing. Discussed with Dr. Dang. ITZEL SIMONS MD PGY1 Family Medicine Pager #[phone] Signed 10/25/21 15:45 Cosigned by Nora Dang MD at 10/25/2021 17:15 EST Associated attestation - Nora Dang MD - 10/25/2021 5388 EST Attestation statement: I discussed the patient with the resident at the time of the Patient's visit. I agree with the findings and the plan of care documented in the resident's note. Nora Dang MD 10/25/2021 17:14 documented in this encounter Plan of Treatment Upcoming Encounters Date Type Department Care Team (Late st Contact Info) Description 11/18/2024 8:15 EST Office Visit [facility] Pelvic Medicine and Reconstructive Surgery - Medical Office Building [facility] [address] [place] [address] Julia Terrell PA-C [address] [facility] Medical Office [facility], [address] [place] [phone] 11/25/2024 8:00 EST Rehab Therapy Visit [facility] Rehabilitation Therapy - Medical Office [id number] [place] [address] Cira Jackson DPT [address] [place] [address] [address] [place] [phone] 12/02/2024 8:00 EST Rehab Therapy Visit [facility] Rehabilitation Therapy - Medical Office [address] [place] [address] Cira Jackson DPT [address] [place] [address], [address] [place] [phone] 12/09/2024 8:00 EST Rehab Therapy Visit [facility] Rehabilitation Therapy - Medical Office Building [address] [place] [address] Cira Jackson DPT [address] [place] [address] [address] [place] [phone] 12/16/2024 9:00 EST Rehab Therapy Visit [facility] Rehabilitation Therapy - Medical Office Building [address] [place] [address] Cira Jackson DPT [address] [facility], [address], [address] [place] [phone] 12/23/2024 9:00 EST Rehab Therapy Visit [facility] Rehabilitation Therapy - Medical Office [address] [place] [address] Cira Jackson DPT [address] [facility], [address], [address] [place] [phone] Scheduled Referrals Name Type Priority Associated Diagnoses Order Schedule PROVIDER FOLLOW-UP INSTRUCTIONS Outpatient Referral Routine/Next Available Ordered: 10/25/2021 documented as of this encounter Visit Diagnoses Diagnosis Encounter for maternal care for low transverse scar from repeat delivery documented in this encounter Admitting Diagnoses Diagnosis Encounter for maternal care for low transverse scar from repeat delivery documented in this encounter Discontinued Medications Medication Sig Discontinue Reason Start Date End Da te HYDROcodone-acetaminophen (VICODIN) 5-300 mg tablet Take 2 Tabs by mouth daily. 10/25/2021 documented as of this encounter Orders Diet Count Last Ordered Date First Orde red Date DISCHARGE DIET 1 10/25/2021 Nursing Count Last Ordered Date First Orde red Date ACTIVITY INSTRUCTIONS 1 10/25/2021 BATHING INSTRUCTIONS 1 10/25/2021 Discharge Count Last Ordered Date First Orde red Date DISCHARGE PATIENT 1 10/25/2021 Legal Count Last Ordered Date First Orde red Date MISCELLANEOUS DISCHARGE INSTRUCTIONS 1 12/2021 documented in this encounter Care Teams Indoor Landscape Architect Relationship Specialty Start Date End Date None, Provider PCP - General 06/25/14 08/06/23 documented as of this encounter
--- OUTSIDE RECORDS SUMMARY | 2024-11-10 02:17 | XMS_ITS | Encounter Summary ---
Author Organization [facility] Address [address] [place] [address] Care Team Providers Care Pharmacovigilance Scientist Name Role Phone None, Provider Primary Care Provider Unavailabl e Reason for Visit * Reason Onset Date Comments Advice Only 02/07/2022 Encounter Details Date Type Department Care Team (Late st Contact Info) Description 02/07/2022 Telephone [facility] OBGYN Services - [facility] [address] [place], [place] [id number] Sara Ricks, MARIALUISA [address] [facility], [address] [place] [address] Advice Only Social History Tobacco [...] encounter Miscellaneous Notes * Telephone Encounter - Janice Ramos - 02/23/2022 1547 EDT Pt calling again to see if she can get the pain medication refilled. Pt states the medication is the Lortab as well as the ibuprofen 800mg. Pt's preferred pharmacy is the [facility] on [facility]. Pt states she is supposed to be traveling soon and she would like to get the medication beforehand. * Telephone Encounter - Alma Castro RN - 02/07/2022 1309 EDT Patient called and is requesting a refill of her pain medication that she takes monthly during her cycle. 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 Patient would like this and a referral because her memory has become bad and she is forgetting things often since the of her second child. Patient feels she may be dealing with some post partem depression but is unsure. Patient states she has a very supportive therapist however shewants to make sure there is nothing medically wrong with her. Patient is a recent [facility] patient. Will forward message to Dr Waddell. * Telephone Encounter - Janice Ramos - 02/07/2022 1234 EDT Pt calling stating she had a baby in October. Pt needs a few medications refilled and also wants todiscuss getting a few referrals. Pt needs her pain meds refilled for her painful periods. Pt requests to speak to a nurse and can be reached at [phone]. documented in this encounter Plan of Treatment Upcoming Encounters Date Type Department Care Team (Late st Contact Info) Description 11/18/2024 8:15 EST Office Visit [facility] Pelvic Medicine and Reconstructive Surgery - Medical Office [facility] [address] [place] [id number] Julia Terrell PA-C [address] [place] [address] Medical Office [facility], [address] [place] [phone] 11/25/2024 8:00 EST Rehab Therapy Visit [facility] Rehabilitation Therapy - Medical Office Building [address] [place] [address] Cira Jackson DPT [address] [place] [address], [address] [place] [phone] 12/02/2024 8:00 EST Rehab Therapy Visit [facility] Rehabilitation Therapy - Medical Office Building [address] [place] [id number] Cira Jackson DPT [address] [place] [address], [address] [place] [phone] 12/09/2024 8:00 EST Rehab Therapy Visit [facility] Rehabilitation Therapy - Medical Office [address] [place] [address] Cira Jackson, DPT [address] [place] [address], [address], [address] [place] [phone] 12/16/2024 9:00 EST Rehab Therapy Visit [facility] Rehabilitation Therapy - Medical Office Building [address] [place] [address] Cira Jackson, DPT [address] [place] [address], [facility], [address] [place] [phone] 12/23/2024 9:00 EST Rehab Therapy Visit [facility] Rehabilitation Therapy - Medical Office [address] [place] [address] Cira Jackson, DPT [address] [place] [address], [facility], [address] [place] [phone] documented as of this encounter Visit Diagnoses Not on filedocumented in this encounter Care Teams Pharmacovigilance Scientist Relationship Specialty Start Date End Date None, Provider PCP - General 06/25/14 08/06/23 documented as of this encounter
--- OUTSIDE RECORDS SUMMARY | 2024-11-10 02:17 | XMS_ITS | Encounter Summary ---
Author Organization [facility] Address [address] [place] [address] Care Team Providers Care Ear Nose Throat Surgeon Name Role Phone None, Provider Primary Care Provider Unavailabl e Reason for Referral * Specialty Diagnoses / Procedures Referred By Contac t Referred To Contact Itzel Merida MD Phone: tel: fax: Referral ID Status Reason Start Date Expiration Date Visits Re quested Visits Authorized Comments See your bilingual inside sales representative in 2 and 6 weeks. Please call [facility] for an appointment. * Specialty Diagnoses / Procedures Referred By Contac t Referred To Contact Itzel Merida MD Phone: tel: fax: Referral ID Status Reason Start Date Expiration Date Visits Re quested Visits Authorized Reason for Visit * Auth/Cert Specialty Diagnoses / Procedures Referred By Contac t Referred To Contact Diagnoses Supervision of other normal Referral ID Status Reason Start Date Expiration Date Visits Re quested Visits Authorized [id number] 1 1 Encounter Details Date Type Department Care Team (Late st Contact Info) Description 10/26/2021 9:31 EST - 10/29/2021 13:16 EST Hospital Encounter [facility] [address], [place] [id number] Ashok Salter MD [address] [phone] Marques Bazzi MD [address] [phone] Chronic pelvic pain in female (Primary Dx); Supervision of other normal ; Encounter for maternal care for low transverse scar from repeat delivery Discharge Disposition: Home-Health Care Svc Social History Tobacco Use Types Packs/Day Years [...] Sign Reading Time Taken Comments Blood Pressure 128/74 10/29/2021 1104 EST Pulse - - Temperature 36.8 ??C (98.2 ??F) 10/29/2021 1104 EST Respiratory Rate 16 10/29/2021 1104 EST Oxygen Saturation 100% 10/29/2021 1104 EST Inhaled Oxygen Concentration - - Weight 68 kg (150 lb) 10/27/2021 0827 EST Height 162.6 cm (5' 4) 10/27/2021 0827 EST Body Mass Index 25.75 10/27/2021 0827 EST documented in this encounter [...] Vega RN documented in this encounter Discharge Summaries * Itzel Merida MD - 10/29/2021 1316 EST Department of CARGO SUPERVISOR Maternal Discharge Summary Information for the patient's : Linda Lynn [[id number]] Linda Lynn Maternal Name: Mine Lynn : 1990 Attending: Marques Bazzi MD Admission: 10/26/2021 Discharge: 10/29/2021 Reason for Admission: Admission indication: Term labor/ROM Principal/Final Diagnosis: Supervision of other normal Delivery Indications: Maternal Indications for delivery: Labor Indication for delivery: Not applicable Principal Procedure: Low Segment Transverse Secondary Procedures: None Hospital Course: Mine Lynn is a now 30 y.o. who presented at 37w3d in active labor with a planned due to history of a pelvic fracture with her previous delivery. She underwent pLTCS and delivered a viable female . Please see full surgical dictation for additional details. EBL 700cc, no complications. Patient recovered well and was transferred to [place] [address] mother baby unit for care. The patient's course was complicated by pain control issues in the setting of known chronic pain syndrome (pelvic pain secondary to coccyx fracture) which was being previously managed withpelvic PT, AT and chiropractor sessions, lidocaine patches, and intermittent narcotic use during . Her LTCS likely exacerbated this pain condition, however with uptitration of her narcotic regimen, along with scheduled tylenol and motrin, she was able to obtain good pain control and was able to ambulate without significant pain. A comprehensive pain clinic referral was also placed for patient to f/u with their clinic after discharge. She tolerated a regular diet and was ambulating and v oiding independently. PT saw the patient to ensure she had adequate mobility at home, especially with stairs, and cleared her for discharge with recommendations for home PT which was ordered. Her lochia was within normal limits and she initiated . The patient was subsequently discharged on POD#3 with instructions to follow-up for routine care at 2 and 6 weeks. Hospital Problems: Active Hospital Problems Diagnosis Date Noted ??? Encounter for maternal care for low transverse scar from repeat delivery 10/19/2021 Added automatically from request for surgery [id number] Allergies: Imitrex [sumatriptan succinate] Medications during current : No medications prior to admission. LABOR INFORMATION Labor Onset: Labor Analgesia: None Amniotic Fluid Color: Clear Duration Rupture of Membranes: 0.00 hours 0.00 minutes DELIVERY INFORMATION Low Segment Transverse ; Delivery / Repair Anesthesia: Spinal, EBL: Placenta: Method: Spontaneous Labor and Delivery Complications and/or Procedures: None INFORMATION Date: 10/26/2021 Time: 1103 Weight: 3190 g (7 lb 0.5 oz) Sex: female Apgars: 7 8 Clinical Issues Needing Follow-up: - Pain management: comprehensive pain clinic referral placed, patient sent with enough narcotics toget her through the weekend (discharged on Sunday 10/29) with plans to f/u with her OB clinic for further pain medications if necessary -Mobility: home PT to see the patient and help with mobility around the house, safety, etc. Patientis also interested in outpatient PT (pelvic floor PT) - Mood/anxiety: patient at higher risk for depression, will need close follow up and screening, d/c on zoloft which she previously had success with Contraception Plan: Plans to discuss with OB provider at visit, unsure what she would like to try, had a difficult time with IUD in the past Other: None Results Pending at Discharge: Test results still pending from this admission None Follow-up appointments and procedures Keep all scheduled appointments Authorizing Provider: Ashok Salter MD You should follow up with your Waste Duster See your bilingual inside sales representative in 2 and 6 weeks. Please call [facility] for an appointment. Authorizing Provider: Ashok Salter MD [facility] I certify that this patient is under my care and that I, or another Medicare allowed practitioner (DO JAYNE, DUSTY) working with me, had a [id number] encounter with this patient on this date: 10/29/2021 The discharge summary or progress note will provide further details that support the need for the home health services and the plan of care.: Yes Enter the allowed practitioner (DO JAYNE, DUSTY) who will provide oversight of this patient's home heatlh care needs and plan of care: Alek Stark MD The patient???s homebound status is related to the following diagnoses, illness or condition (describe): chronic pelvic pain 2/2 coccyx fracture, requiring ongoing narcotic medications, recent exacerbation due to Patient needs one or more of the following to leave home: The assistance or supervision of another person Leaving the home is medically contraindicated due to: Not medically contraindicated, but needs assistance as indicated above. The following conditions illustrate the patient???s normal inability to leave home AND that leavinghome requires a considerable and taxing effort: Post surgical or post procedure restrictions limit ambulation and activity Skilled Care Requested: Physical Therapy Physical therapy is needed for: Evaluation Gait/Mobility Assessment and Training Post Surgical Safety Expected Discharge Date (Inpatient Only): 10/30/2021 Authorizing Provider: Ashok Salter MD Amb Consult/Follow Up Comprehensive Pain Diagnostic or therapeutic challenges: pain management Relevant diagnostic studies: n/a Indicate therapeutic interventions (i.e. medication, surgery, interventional approaches): pelvic PT, chiropractor, athletic training, opioid therapy Reason for Request: chronic pelvic pain secondary to coccyx fracture at first delivery 5 years ago,now with worsening pain after recent for 2nd baby Expected Discharge Date (Inpatient Only): 10/30/2021 Authorizing Provider: Itzel Merida MD Condition at Discharge: Stable Discharge Disposition: Home, self-care with services (home PT) ITZEL MERIDA MD 10/30/2021 18:32 Cosigned by Ashok Salter MD at 11/01/2021 8:51 EST documented in this encounter Medications at Time [...] 2 times daily. 60 capsule 10/29/2021 3 HYDROmorphone (DILAUDID) 2 mg tablet Take 3 Tablets by mouth every 3 hours as needed for Pain. Daily Max: 48 mg 60 Tablet 10/29/2021 2 ibuprofen (MOTRIN) 800 mg tablet Take 1 Tablet by mouth every 8 hours as needed for Pain. 90 Tablet 10/29/2021 2 polyethylene glycol 3350 (MIRALAX) 17 gram packet Take 17 g by mouth daily. 30 Each 10/30/2021 3 sertraline (ZOLOFT) 25 mg tablet Take 1 Tablet by mouth daily. 30 Tablet 10/30/2021 4 documented as of this encounter Ordered Prescriptions Prescription Sig Dispense Quantity Refills Last Filled Start Date End Date HYDROmorphone (DILAUDID) 2 mg tablet Take 3 Tablets by mouth every 3 hours as needed for Pain. Daily Max: 48 mg 60 Tablet 10/29/2021 2 polyethylene glycol 3350 (MIRALAX) 17 gram packet Take 17 g by mouth daily. 30 Each 10/30/2021 3 sertraline (ZOLOFT) 25 mg tablet Take 1 Tablet by mouth daily. 30 Tablet 10/30/2021 4 ibuprofen (MOTRIN) 800 mg tablet Take 1 Tablet by mouth every 8 hours as needed for Pain. 90 Tablet 10/29/2021 2 docusate sodium (COLACE) 100 mg capsule Take 1 capsule by mouth 2 times daily. 60 capsule 10/29/2021 3 acetaminophen (TYLENOL) 500 mg tablet Take 2 Tablets by mouth every 8 hours as needed for Pain. 180 Tablet 10/29/2021 4 documented in this encounter Discharge Disposition Disposition Code Departure Means Destination Home-Health Care [facility] documented in this encounter Progress Notes * Nadia Marcano, PT - 10/29/2021 1253 EST [facility] Acute Therapy [facility] Therapy Discontinue/Discharge Note Date of Service: 10/29/2021 Mobility Precautions Activity: Activity as tolerated SUBJECTIVE: Patient/Caregiver States: Patient nervous about trying to stop but knows it is important for her totry because she has steps at home and agreeable to participate in PT today as planned OBJECTIVE: In this reporting period 10/28/21 to today, the patient has been seen for physical therapy services. Please refer to the physical therapy notes for specifics on the patient's treatment sessions. Interventions Completed Today: Time: 1100 Total Treatment Time (minutes): 25 Timed Code Treatment Minutes: 25 Interventions Included Procedures: Therapeutic activities Therapeutic Activities 1: tx:Therapeutic Activity: Bed mobility:rolling to sit with independence - can provide min contact assist x1if needed with painTransfers: sit <> stand with independence -, can offer -min contact assist x1 Pt ambulated 50 ft x2 with no assistive device with independence -with pain, offers -min contact assist x1.Cues were required for technique and proper hand placement - gait deviations included slow christa, decreased bilateral hip and knee flexion during swing, decreased bilateral step length, and decreased bilateral heel strike Stairs: /step mock up: Patient able to step up and down a step with rail and mod to min contact assist x1. Education provided regarding sequencing and safety.All above with verbal cues for safety as well as energy conservation/pacingPatient instructed in energy conservation techniques, self initiating rest periods coupled with pursed lip breathing. Patient also instructed in planning movements and clustering activities to conserve energy. Patient returned to bed with table, call mejía, phone , or any change other requested items by pt Patient/Family Education: See below for education performed as part of treatment today. Activity/Work/Community: Activity/energy conservation, Body mechanics Mobility, Transfers, and Gait: Mobility training, Gait, Car transfers, Bed mobility Recommendations: Positioning - Carrying positions Safety: Safety Therapy Specific: Role of physical therapy Learner: Patient Learning Preferences: Auditory Method: Verbal, Demonstration Barriers to Learning: None Outcome: Verbalized understanding Team Communication Notified: Nurse When: Prior to therapy session, After therapy session By: [id number] communication Additional information may be available in the medical record. Relevant Objective Findings: If a physical therapy treatment was performed today please see above for relevant objective findings. See below if there are any additional findings. BALANCE, MOBILITY AND GAIT ASSESSMENT: The patient presents with a physical therapy diagnosis of: Impaired mobility, Impaired gait This patient has been appropriate for therapy evaluation and intervention secondary to patient PT diagnosis as listed above related to recent delivery and history of pelvic/coccyx fracture and postdelivery pain. Patient continues to tolerate short distance ambulation, and ascend/descend step today in prep fro d/c per team. Pt reviewed plan for HHPT, and recommendation for assisted stair, shower and car transfer mobility. Patient aware of plan and agreeable to HHPT , will consider cane use. Short-Term Goals: Time Frame: Not applicable Long-Term Goals: Time Frame: met Goal: Patient demonstrates ability to ambulate 100 feet with least restrictive device without loss of balance, independently. Status: Met Goal: Patient states ability to navigate ascend/descend step (practice step) with supervision assist x1 Status: Met Goal: Patient demonstrates understanding of PT recommendations Status: Met PLAN: Discontinue physical therapy services Recommended Discharge Destination: Home with assistance/supervision as needed Therapy Specific Services: Physical therapy, then pt to pursue out pt PT -pelvic floor Equipment Recommended Comments: discussed cane use- coomode use-family to obtain NADIA MARCANO, PT 10/29/2021 12:53 * Sarbjit Escobedo MD - 10/29/2021 0601 EST Postoperative Progress Note Chief Complaint: s/p POD#3 LTCS for history of pelvic fracture related to operative vaginal delivery of first child Subjective: Mine Lynn reports she struggling a lot with pain control, felt like it was improved yesterday and she was able to walk around, but now pain is making things like sitting up incredibly painful. Pain located around her tailbone, along with cramping with . She is passingflatus but has not had a bowel movement yet. She is tolerating a regular diet without nausea or vomiting. She has ambulated. She is voiding without difficulty. Lochia is minimal. breast feeding goingwell. The patient denies CP/SOB/N/V/WALTON/Dizziness/F/C/LE pain. Objective: BP 107/67 (BP Cuff Location: Left arm, BP Patient Position: Semi fowlers) Temp 36.3 ??C (97.3 ??F) (Temporal) Resp 16 Ht 162.6 cm (64) Wt 68 kg (150 lb) LMP 02/06/2021 SpO2 98% Unknown BMI 25.75 kg/m?? UOP: unmeasured, Gen: NAD, sitting up in bed holding baby Resp: CTAB, breathing comfortably CV: RRR, normal S1/S2 Abd: +BS, soft, appropriately tender, fundus firm @ 2 cm below umbilicus, incision site covered with steri strips, c/d/i Ext: WWP, 1+ PE bilat Labs: Lab Results Component Value Date/Time HCT 27.3 (L) 10/27/2021 11:48 HCT 32.3 (L) 10/26/2021 09:58 HCT 34.7 (L) 05/17/2021 13:05 Assessment/Plan: Mine Lynn is a 30 y.o. POD#3 s/p LTCS at 37w3d for history of pelvicfracture related to delivery of first child. Patient is recovering well, AVSS, voiding independently. Plans to ambulate more today. Routine care: - Continue routine post-op/post- care. Encourage IS, ambulation, PO intake; support BF. - Continue current pain regimen. Requiring dilaudid IV and PO - Breast feeding - Rh neg, rhogam administered - Rubella immune, Varicella immune - Pre-op Hct 32.3, EBL 700 cc, AM Hct 32.2 Pain: - continue 6mg dilaudid Q3H - add lidocaine patches. VTE Prophylaxis - Additional risk factors for VTE: none - Thromboprophylaxis: ambulation; hydration; SCDs Dispo - Contraception: discussed on POD#1, plans to talk more with her OB provider, had a difficult time with IUD in the past - depression: discussed on POD#1. Has hx of depression and has a plan with psychiatrist to restart Zoloft in next few weeks. Pt is aware of si's, sx's, and available resources. - Likely d/c home POD#3-4 Sarbjit Escobedo MD PGY-1 Obstetrics and Gynecology 10/29/2021 6:03 Pager: [phone] Cosigned by Joe Chakraborty MD at 10/29/2021 8:15 EST * Nadia Marcano, PT - 10/28/2021 1420 EST [facility] Acute Therapy [facility] Initial Evaluation Note Date of Service: 10/28/2021 Reason for Referral: Evaluate and treat Mobility Precautions Activity: Activity as tolerated SUBJECTIVE: Patient/Caregiver States: wants to walk in mcdonald, pain present, meds help some Pain Comments: Pain location: Coccyx and incisional pain. Frequency: With movement and palpation. Quality: Sharp. Aggravating factors: Bed mobility sitting, ambulation. Alleviating factors completelysupine position and rest and pain meds OBJECTIVE: Patient Profile: Patient is a 30 y.o. female admitted on 10/26/2021 secondary to Supervision of othernormal The patient lives at [address] [place] [phone] History of Present Illness / Injury Current Illness / Injury: Patient status post with history of coccyx pelvic fracture after first 5 years ago impaired mobility post delivery. Prior Level of Function: Level of Assistance Throughout: Independent Medical/Surgical History: Current: The patient has Spastic pelvic floor syndrome; Urge urinary incontinence; Encounter for maternal care for low transverse scar from repeat delivery; and Supervision of other normal on their problem list. Past: The patient has a past medical history of Anxiety, generalized (Ativan intermittently during ) and Pelvic floor dysfunction. The patient has a past surgical history that includes other surgical history (2007). Medications Current Medications: Current medications reviewed Arousal, Attention, and Cognition: Orientation Level: Oriented X 4 Cardiopulmonary: Vital Signs Vital Signs with Activity Comment: Vital signs blood pressure 125/68 heart rate 75 SPO2 98 on room air-all within parameters Integumentary/Anthropometric: Skin General Assessment Skin and Related Structure Functions: Wound not visualized as it was covered/dressed, No problems noted (Per RN clean dry and intact incision, PT did not visualize) Sitting Posture General Assessment: No problem noted Range of Motion and Joint Integrity: General Assessment Range of Motion: Within normal limits as demonstrated functionally except as noted Muscle Performance: Strength: Manual muscle testing not formally performed, strength observed to be > 3/5 with grossmovement Sensation, Reflexes, and Nerve Integrity: Sensory Functions: No problems noted Neuromotor Function/Development: Neuromotor Function/Development: No problems noted Balance, Mobility, and Gait: Static Sitting Balance Static Sitting Balance: No problems noted Dynamic Sitting Balance Dynamic Sitting Balance: No problems noted Static Standing Balance Static Standing Balance: No problems noted Dynamic Standing Balance Dynamic Standing Balance: Normal ( patient accepts maximal challenge and can shift weight easily and within full range in all directions) (Pain elicited with tasks) Level of Assistance: Modified independence Additional Comments: At times patient reaches for upper extremity support due to pain Gait: Impaired Total Distance: Patient ambulated 50 feet x 2 without device, with supervision assist x1. Patient independent in room short distances, however at times seeks upper extremity support of railing due topain. No loss of balance noted. Patient gait antalgic in nature Self-Care, Home Management, Work, Leisure: Self-Care, Home Management, Work, Leisure: Not evaluated (Patient reports she is independent in thebathroom on and off toilet and attended to her ADLs) Informed Consent: Informed Consent: The patient consented to the Physical Therapy evaluation. The patient agrees to and understands the Physical Therapy treatment plan and goals. Interventions Completed Today: Time: 1200 Total Treatment Time (minutes): 25 Timed Code Treatment Minutes: 0 No interventions completed today Additional information may be available in the medical record. Patient/Family Education: Activity/Work/Community: Activity/energy conservation, Body mechanics Mobility, Transfers, and Gait: Mobility training, Gait, Car transfers, Bed mobility Recommendations: Positioning - Carrying positions Safety: Safety Therapy Specific: Role of physical therapy Learner: Patient Learning Preferences: Auditory Method: Verbal, Demonstration Barriers to Learning: None Outcome: Verbalized understanding Team Communication Notified: Nurse When: Prior to therapy session, After therapy session By: [id number] communication ASSESSMENT: The patient presents with a physical therapy diagnosis of: Impaired mobility, Impaired gait This patient is appropriate for therapy evaluation secondary to patient PT diagnosis disease as listed above related to recent delivery and history of pelvic/coccyx fracture and postdelivery pain. Patient tolerated short distance ambulation today and reviewed plan for tomorrow to advance to stair assessment/navigation. At times patient states upper extremity support therefore will discuss cocaine use to help assist with patient mobility and alleviate pain in pelvic region. Patient aware of plan and agreeable to PT tomorrow Short-Term Goals: Time Frame: Not applicable Long-Term Goals: Time Frame: 3 to 5 days Goal: Patient demonstrates ability to ambulate 100 feet with least restrictive device without loss of balance, independently. Status: Initiated Goal: Patient states ability to navigate ascend/descend step (practice step) with supervision assist x1 Status: Initiated Goal: Patient demonstrates understanding of PT recommendations Status: Initiated PLAN: Physical therapy will be provided by the physical therapist and/or physical therapist dental laboratory assistant when medically appropriate Frequency: Times per week Times Per Week: 1-2 Intensity: 15 minutes, 30 minutes Duration: Duration of hospitalization Interventions May Include: Therapeutic activities Further Data Comments: Their assessment Recommended Discharge Destination: Home with assistance/supervision as needed Equipment Recommended Comments: May trial a cane tomorrow NADIA MARCANO PT 10/28/2021 14:21 * Itzel Merida MD - 10/28/2021 0603 EST Postoperative Progress Note Chief Complaint: s/p POD#2 LTCS for history of pelvic fracture related to operative vaginal delivery of first child Subjective: Mine Lynn says she is on the mend today, feeling a little bit better but still having a hard time managing pain. Pain mostly at tailbone and epidural site, however can also move forward towards her incision. Also feels a lot of cramping in her uterus during . Managing pain with tylenol/motrin as well as dilaudid (both IV and PO). The dilaudid controls her pain enough to allow her to move around the room, has not ambulated down the mcdonald yet but that is a goal of hers for today. She is passing flatus but has not had a bowel movement. Doan was removed and she isvoiding independently, however she reports some discomfort with voiding and longer than normal voiding times (something she deals with regularly, but is a little worse than baseline). Eating and drinking okay, no nausea or vomiting. Lochia is minimal to moderate and decreasing since yesterday.She has not had any more bleeding at the incision site. going well, however baby does occasionally fall asleep at the breast. The patient denies CP/SOB/N/V/WALTON/Dizziness/F/C/LE pain. Objective: BP 114/66 (BP Cuff Location: Left arm, BP Patient Position: Semi fowlers) Temp 36.4 ??C (97.5 ??F) (Temporal) Resp 18 Ht 162.6 cm (64) Wt 68 kg (150 lb) LMP 02/06/2021 SpO2 98% Unknown BMI 25.75 kg/m?? UOP: unmeasured, voiding independently without Doan Gen: NAD, sitting up in bed holding baby Resp: CTAB, breathing comfortably CV: RRR, normal S1/S2 Abd: +BS, soft, appropriately tender, fundus firm @ 2 cm below umbilicus, incision site covered with steri strips, c/d/i Ext: WWP, 1+ PE bilat Labs: Lab Results Component Value Date/Time HCT 27.3 (L) 10/27/2021 11:48 HCT 32.3 (L) 10/26/2021 09:58 HCT 34.7 (L) 05/17/2021 13:05 Assessment/Plan: Mine Lynn is a 30 y.o. POD#1 s/p LTCS at 37w3d for history of pelvicfracture related to delivery of first child. Patient is recovering well, pain control continues to be main challenge. AVSS, voiding independently. Plans to ambulate more today. Routine care: - Continue routine post-op/post- care. Encourage IS, ambulation, PO intake; support BF. - Continue current pain regimen. Requiring dilaudid IV and PO - Doan out - Breast feeding - Rh neg, rhogam indicated and ordered - Rubella immune, Varicella immune - Pre-op Hct 32.3, EBL 700 cc, AM Hct 32.2 VTE Prophylaxis - Additional risk factors for VTE: none - Thromboprophylaxis: ambulation; hydration; SCDs Dispo - Contraception: discussed on POD#1, plans to talk more with her OB provider, had a difficult time with IUD in the past - depression: discussed on POD#1. Has hx of depression and has a plan with psychiatrist to restart Zoloft in next few weeks. Pt is aware of si's, sx's, and available resources. - Likely d/c home POD#3-4 Itzel Merida MD Family Medicine PGY1, Page #[phone] 10/28/21, 6:06 Cosigned by Pauline Stark MD at 10/28/2021 8:39 EST Associated attestation - Pauline Stark MD - 10/28/2021 0839 EST Pt seen and examined. Agree with above. POD2 s/p elective pLTCS. Pt pain is still not controlled. IV discontinued this AM. Plan to increase to 6mg of dilaudid. Will also start Zoloft for anxiety and h/o PP depression. Discussed f/u at chronic pain clinic for fpc management of her pelvic pain. * Nadia Marcano, PT - 10/27/2021 1507 EST [facility] Acute Therapy [facility] Contact Note Date of Service: 10/27/2021 PT referral received, chart reviewed. Full note to follow after completion of evaluation in a.m. NADIA MARCANO PT 10/27/2021 15:07 * Mackenzie Tao - 10/27/2021 0916 EST Mine Lynn 1990 Supervision of other normal Chart review completed and discussed the plan of care with the direct care RN and/or primary care team. Primary Insurance: [facility] Secondary Insurance: Patient with no apparent Case Management needs at this time. No housing, transportation, insurance,resources concerns identified at this time. Supports in place to achieve a safe post-hospital transition. No identified barriers to accessing necessary care and/or follow-up after discharge. calibration technician/Alumni Relations Manager will continue to follow patient's progress and remain available if situation changes for coordination of care, psychosocial support and/or discharge planning. MACKENZIE TAO 10/27/2021 9:16 Covering for Dipti Santos RN * Joe Chakraborty MD - 10/27/2021 0553 EST Postoperative Progress Note Chief Complaint: s/p POD#1 LTCS for history of pelvic fracture related to operative vaginal delivery of first child Subjective: Jennyjason Shane reports she is doing ok overall. Her pain increased overnight, with a lot of incision pain and contraction pains. The IV dilaudid was very helpful with her pain and made it so she was able to tolerate moving around. Current pain level 6/10. She is passing flatus but has not had a bowel movement yet. She still has not had anything to eat, but does not feel nausea or vomiting. She is drinking water and other liquids. She has ambulated to the bathroom and back. She has a doan in place. Has had a fair amount of uterine cramping. Lochia is minimal to moderate and decreasing. Pad only needed to be changed twice. She has not had any more bleeding at the incision site. B reastfeeding going well. The patient denies CP/SOB/N/V/WALTON/Dizziness/F/C/LE pain. Discussed depression, which she experienced with her first son. Has a plan with her psychiatrist to restartZoloft. Discussed contraception options and she plans to speak about this more with her OB providergiven past negative experience with IUD following last . Objective: BP 107/52 (BP Cuff Location: Left arm, BP Patient Position: Semi fowlers) Temp 36.5 ??C (97.7 ??F) (Temporal) Resp 18 LMP 02/06/2021 SpO2 99% Unknown UOP: 200 mL/1 hr Gen: NAD, lying in bed Resp: CTAB CV: RRR, normal S1/S2 Abd: +BS, soft, appropriately tender, fundus firm @ 2 umbilicus, incision site covered with pressure dressing, no strike through noted. Ext: WWP, 1+ PE bilat Labs: Lab Results Component Value Date/Time HCT 32.3 (L) 10/26/2021 09:58 HCT 34.7 (L) 05/17/2021 13:05 HCT 37.9 11/25/2015 12:30 Assessment/Plan: Mine Lynn is a 30 y.o. POD#1 s/p LTCS at 37w3d for history of pelvicfracture related to delivery of first child. Patient is recovering well, but pain continues to be an issue. AVSS and adequate UOP. Routine care: - Continue routine post-op/post- care. Encourage IS, ambulation, PO intake; support BF. - Continue current pain regimen. - D/C Doan once able to ambulation - Breast feeding - Rh neg, rhogam indicated - Rubella immune, Varicella immune - Pre-op Hct 32.3, EBL 700 cc, AM Hct 32.2 VTE Prophylaxis - Additional risk factors for VTE: none - Thromboprophylaxis: ambulation; hydration; SCDs Dispo - Contraception: discussed on POD#1, plans to talk more with her OB provider - depression: discussed on POD#1. Has hx of depression and plan with psychiatrist to restart Zoloft in next few weeks. Pt is aware of si's, sx's, and available resources. - Likely d/c home POD#3-4 Fanta Duggan, MS3 I was present with the medical student for the history, exam, and medical decision making documented by the student. I have edited the student note as appropriate. SARBJIT ESCOBEDO MD Pt seen, agree with above. * Sarbjit Escobedo MD - 10/26/2021 1403 EST Postoperative Progress Note CC: POD#0 s/p LTCS S: Doing well. Pain currently well controlled, but notes some pain on the right side. Passing flatus, no BM. Has not had anything to eat, but has been drinking water and amy denis. No nausea and vomiting. Has not ambulated. Doan in place with adequate urine output. Lochia moderate. going well. The patient denies CP/SOB/N/V/WALTON/Dizziness/F/C/LE pain. Nursing staff noted that the dressing had been saturated, particularly on the right side. O: BP 114/55 (BP Cuff Location: Left arm, BP Patient Position: Semi fowlers) Temp 36.3 ??C (97.3 ??F) (Temporal) Resp 20 LMP 02/06/2021 SpO2 98% Unknown Intake/Output Summary (Last 24 hours) at 10/26/2021 1622 Last data filed at 10/26/2021 1540 Gross per 24 hour Intake 2750 ml Output 1570 ml Net 1180 ml Lab Results Component Value Date HCT 32.3 (L) 10/26/2021 HCT 34.7 (L) 05/17/2021 HCT 37.9 11/25/2015 UOP: 850 cc/4 hrs Gen: NAD Resp: CTAB CV: RRR Abd: +BS, soft, nondistended, appropriately tender to palpation, fundus firm @ 2 cm below umbilicus, dressing saturated with blood, inspection upon removal of dressing showed no active bleeding but with small amount of dried blood on the right side of incision, covered with new pressure dressing. Ext: WWP A/P: Mine Lynn is a 30 y.o. POD#0 s/p planned LTCS at 37w3d due to previous pelvic fracture at operative vaginal delivery of first child. Pt recovering well, vital signs stable, and adequate UOP. Routine care: - Continue routine post-op/post- care. Continue current pain regimen. Encourage IS, ambulation, PO intake. - D/C Doan with ambulation - Support - Rh neg, Rh pos, Rhogam Ordered. - Rubella immune, Varicella immune - Pre-op Hct 32.3, EBL 700cc, AM CBC ordered . VTE Prophylaxis - Additional risk factors for VTE: none - Thromboprophylaxis: ambulation; hydration; SCDs Dispo - Contraception: will discuss - depression: will discuss - Likely d/c home POD#3-4 Fanta Duggan, MS3 I was present with the medical student for the history, exam, and medical decision making documented by the student. I have edited the student note as appropriate. SARBJIT ESCOBEDO MD * Christelle Christianson - 10/26/2021 1340 EST 0940 Patient arrived to LDR 5 r/o Labor +SROM plan for 0944 Dr. Bazzi at beside srom plan for IV inserted lab sent 1018 Entered OR 1100 Incision documented in this encounter H&P Notes * Marques Bazzi MD - 10/26/2021 0957 EST Department of Obstetrics History & Physical Admit Date: 10/26/2021 Chief Complaint: Labor Provider: Affiliates Transporting Provider and Facility: Self Method of Arrival: Car HPI: Mine Lynn is a 30 y.o. @ 37w3d by early US who presents with labor, hx OVD w/ pelvic fracture planned for primary . Had large gush of fluid this AM suspicious for ROM. GoodFM, no VB. Contractions every 2-3 minutes, very uncomfortable. Review of Systems: Otherwise negative Rh negative Anterior/fundal placenta Other PNLs WNL Ultrasound Past Obstetrical History Hx VAVD for 9lb baby, subsequent pelvic fracture Past Medical History Past Surgical History Past Medical History: Diagnosis Date ??? Anxiety, generalized Ativan intermittently during ??? Pelvic floor dysfunction Past Surgical History: Procedure Laterality Date ??? OTHER SURGICAL HISTORY 2007 Excision of periurethral cysts at [facility] History Social History Social History Tobacco Use ??? Smoking status: Never Smoker ??? Smokeless tobacco: Never Used Substance Use Topics ??? Alcohol use: No Comment: social Medications Allergies No current facility-administered medications on file prior to encounter. Current Outpatient Medications on File Prior to Encounter Medication Sig Dispense Refill ??? albuterol 90 mcg/actuation inhaler Inhale 2 Puffs as directed every 4 hours. 1 Inhaler 0 ??? inhalational spacing device (BREATHERITE MDI SPACER) Use with a metered dose inhaler, as directed. May be dispensed with mask as appropriate.. 1 Each 0 ??? oxyCODONE (ROXICODONE) 5 mg immediate release tablet Take 1 Tablet by mouth every 12 hours as needed for up to 5 doses for Pain. Daily Max: 10 mg 5 Tablet 0 Allergies Allergen Reactions ??? Imitrex [Sumatriptan Succinate] Shortness Of Breath Objective: No data found. General: Appearing uncomfortable Cardiovascular: RRR Respiratory: CTAB Abdomen: Gravid to 38 weeks Extremities: WWP FHT: 135 baseline, mod variability, pos accels, no decels; Cat 1 tracing. TOCO: q3-5 mins SSE: deferred SVE: 4/100/0 Assessment/Problems/Plan: Mine Lynn is a 30 y.o. @ 37w3d by early US presenting for labor, planned section due to previous pelvic fracture at time of last OVD. Will proceed with delivery MICHELE given now in labor and appearing active. Delivery: CS, will consult anesthesia T&S, CBC No contraindications for any uterotonics Global - hemorrhage risk: medium for CS -Rh neg -GBS neg Marques Bazzi MD 10/26/2021 9:57 documented in this encounter Procedure Notes * Marques Bazzi MD - 10/26/2021 1152 ESTProcedure(s): SECTION, LOW TRANSVERSE Pre-Procedure Diagnose(s): History of pelvic fracture Post-Procedure Diagnose(s): History of pelvic fracture Name: Mine Lynn : 1990 Date of Service: 10/26/2021 Surgeon: Marques Bazzi MD Assistant Store Director: Dayron Bales MD PGY7 Procedure: Primary Low Transverse Section via Pfannenstiel with 2 layer uterine closure. Anesthesia: Spinal Preoperative Diagnosis: 1. Intrauterine at 37w3d 2. Planned due to a history of pelvic fracture Postoperative Diagnosis: Same, delivered Indications: This is a 30 y.o. at 37w3d EGA who presented to labor and delivery in active labor. The patient was counseled on the risks, benefits and alternatives to the procedure and a written consent was signed prior to the start of the procedure. Findings: 1. Viable female infant born at 1103 with Apgars of 7 at 1 minute and 8 at 5 minutes, weighing 3190g. 2. Normal uterus, tubes and ovaries. 3. Small left sided hematoma at hysterotomy Narrative: The pt was taken to the operating room with an IV in place where spinal anesthesia was found to be adequate. 2 grams of cephazolin and 500mg of azithromycin were given prior to incision based on patient weight. She was prepped and draped in the normal sterile fashion in the dorsal supine position with a leftward tilt. An allis test was performed to ensure adequate anesthesia. A Pfannenstiel incision was made with the scalpel and carried down to the underlying layer of fascia bluntly. The fasciawas then incised in the midline and the incision was extended laterally, superiorly and inferiorly bluntly. The rectus muscles were then in the midline and the peritoneum identified and entered bluntly. This incision was then extended laterally under tension until the uterus was well visualized. Brief abdominal survey revealed no abnormalities. The bladder blade was inserted over the bladder. The lower uterine segment was incised in a transverse fashion with the scalpel. The uterine incisionwas then extended laterally using blunt dissection. The bladder blade was removed and the infant's head delivered atraumatically. The cord was clamped and cut and the infant was handed off to the waiting pediatric care providers. The placenta was then removed with gentle traction, the uterus exteriorized, and the uterus was cleared of all clots and debris. The uterine incision was repaired with a0 vicryl suture in a running, locked fashion. A second layer was created with the same suture in animbricating fashion with excellent hemostasis. The uterus was then returned to the abdomen. The gutters were cleared of all clots and debris and irrigated with sterile saline soaked sponges. The fascia was reapproximated with 0 vicryl. The skin was closed with 3-0 Monocryl. The patient tolerated the procedure well. Sponge, lap and needle counts were correct times two. Thepatient was taken to [place] [address] PACU in stable condition. Dr. Bazzi was present throughout the entire procedure. Estimated blood loss: 700cc IV fluids: 2 L Urine Output: 20 cc Specimens Sent: None Retained Materials: Doan Complications: None Disposition: M7 then B7 Marques Bazzi MD 10/26/2021 11:52 documented in this encounter Miscellaneous Notes * Plan of Care - Angela Blackwell RN - 10/29/2021 1233 EST Problem: Daily Care Plan Goals Goal: Care Plan Documentation Flowsheets (Taken 10/29/2021 1145) Area of Focus: Discharge Plan Goal This Shift: prepare for d/c D: Stable PP pt. discharged to home/self care. A: Demonstrated/assisted patient to obtain/watch discharge videos via EDUS. Reviewed with patient how to complete certificate. Offered home health referral. Patient given opportunity to ask questions. R: Pt verbalized/demonstrated understanding of teaching, has completed the d/c videos and certificate. Pt home health referral Completed. Patient/Family questions answered and AVS signed/returned. * Note - Glendy Chairez RN - 10/29/2021 1118 EST Images from the original note were not included. [facility] Consult Progress Note Consult Requested By: Patient Requested Reason for Consult: Hx difficult experience Subjective: I would like to supplement with my milk if possible Objective: Date of : Information for the patient's : Linda Lynn [[id number]] 10/26/2021 Time of Delivery: Information for the patient's : Linda Lynn [[id number]] 1103 Type of Delivery: Information for the patient's : Linda Lynn [[id number]] Low Segment Transverse [1059] Weight: 3190 g (7 lb 0.5 oz) Gestational Age: Information for the patient's : Linda Lynn [[id number]] 37 3/7 : Information for the patient's : Linda Lynn [[id number]] 7 Information for the patient's : Linda Lynn [[id number]] 8 GBS: Mother was negative. Anesthesia: Labor analgesia: None Delivery anesthesia: Spinal, Adjunctive analgesia: None Anesthetic complications: None Additional comments: History/ Complications: Primary C/S EBL 700 Maternal Lab: Lab Results Component Value Date HCT 27.3 (L) 10/27/2021 Infant Lab: Information for the patient's : Linda Lynn [[id number]] No results found for: TCB Information for the patient's : Linda Lynn [[id number]] No results found for: TBIL Information for the patient's : Linda Lynn [[id number]] No results found for: CRP History: Older son Fritz (5 yo) was in NICU, difficulty with latching, weight loss. Needed to supplement. Nerma pumped x 1 month. Social History: FOB: Nermin They live in [place]. Mine works in [employer]. Medical History: Pertinent Maternal History:hx of pelvic fracture w/ previous delivery Current Maternal Medications: acetaminophen (TYLENOL) tablet 1,000 mg, oral, Q8H PRN calcium carbonate (TUMS) 200 mg calcium (500 mg) per chewable tablet tablet,chewable 2 Tablet, oral, Q2H PRN carboprost (HEMABATE) 250 mcg/mL intramuscular injection, , ceFAZolin (ANCEF) syringe, , docusate sodium (COLACE) capsule 100 mg, oral, BID hydrocortisone 2.5 % cream, topical, Q6H PRN HYDROmorphone (DILAUDID) tablet 6 mg, oral, Q3H PRN ibuprofen (MOTRIN) tablet 800 mg, oral, Q8H PRN lansinoh HPA lanolin, topical, PRN lidocaine (PF) 10 mg/mL (1 %) injection 2 mg, intradermal, PRN lidocaine 1 % injection 20 mL, intradermal, PRN lidocaine 5 % (LIDODERM) patch 1 Patch, transdermal, DAILY methylergonovine (METHERGINE) 0.2 mg/mL (1 mL) injection, , miSOPROStol (CYTOTEC) 200 mcg tablet, , miSOPROStol (CYTOTEC) tablet 200 mcg, buccal, PRN miSOPROStol (CYTOTEC) tablet 800 mcg, rectal, PRN multivitamin vit-iron fumarate-FA (STUARTNATAL) 27 mg iron- 1 mg tablet 1 Tablet, oral, DAILY ondansetron (ZOFRAN-ODT) disintegrating tablet 4 mg, oral, Q4H PRN oxytocin in lactated ringers 30 units/500 ml, intravenous, CONTINUOUS And oxytocin in lactated ringers 30 units/500 ml, intravenous, CONTINUOUS polyethylene glycol 3350 (MIRALAX) packet 17 g, oral, DAILY sertraline (ZOLOFT) tablet 25 mg, oral, DAILY simethicone (MYLICON) chewable tablet 80 mg, oral, QID PRN tranexamic acid (CYKLOKAPRON) injection 1,000 mg, intravenous, PRN witch julianne (TUCKS) 50 % pad 1 pad, topical, PRN Maternal Anatomy: compression stripe on right nipple Pertinent History: DC + Bili 6.1 at 24 HOL Current Infant Medications: Information for the patient's : Linda Lynn [[id number]] Breast Milk Identification, oral, PRN lidocaine (PF) 10 mg/mL (1 %) injection 1 mL, subcutaneous, PRN sucrose 24% (TOOTSWEET) solution 0.3 mL, oral, PRN Anatomy: no abnormalities noted Infants Current Weight: Information for the patient's : Linda Lynn [[id number]] 2870 g (6 lb 5.2 oz) Change from Weight: down 7.8 oz since yesterday Information for the patient's : Linda Lynn [[id number]] -10% 24 hour I/O: BF: 12 at breast plus supplementation X3 overnight with similac 53 mLs in past 24H VD: 6 ST: 4 Pumping Observation: Initiated pumping with family. Oriented to hospital pump, which pt had used before. Pumped both sides and able to express 50 mL in 15 minutes at 10% weight loss and infant given formula supplementation x3 overnight. Family wishes to EBF and suplement with EBM when needed. Patient Education:Prevention/treatment of engorgement, Community resources for , Risksof formula supplementation, Pumping instructions; use of symphony pump on standard setting, how to set suction pressure, how frequently to pump, hands on pumping technique and how to clean pump partsand Breast compressions Assessment: Multipara with desire to EBF her second child, Verito. Working on positioning and latching. Introduced pumping to support goal of EBF/supp with EBM prn 37+3 weeks gestation. Hx of difficult breast feeding experience. Weight loss at 10% at D3 of life Risks for delayed lactogenesis II/LMS: Need for continued support from nursing and IBCLC Plan: STS as much as possible. Offer breast with cues, at least 8-12 times per 24 hours Watch for light sleep state cues if needed, to avoid longer than 3 hours without feeding Try to observe latch at least once per shift - help with this PRN Use breast compressions to keep baby swallowing PRN Hand expression to assist with latch and/or to provide extra milk after nursing sessions Provide gentle touch to firm ducts to encourage draining Pump after feeds to supplement with EBM while PRN supplementing for weight loss Follow-up with TLP following d/c to home Handouts given: Feeding log; community resources Pump Equipment: Motif Time spent: In Room: 55 mins face to face - latch/feed observed Out of room: 15 mins chart prep + note LC to see: 10/29/2021 GLENDY CHAIREZ RN 10/29/2021 11:18 * Plan of Care - Lili Colin RN - 10/28/2021 2229 EST Data: Patient delivered via csection 2 days ago with no noted complications. Patient states that pain is not being well managed per MAR. Patient is concerned about pain and would like to discuss other combo of pain medication. Pain goal is 5/10. Urinating and confirms passing flatus. VSS. Exclusively . Independently ambulating. Action: Education on night schedule. Education on cluster feeding and supportive interventions. Response: No other concerns or questions at this time. LILI COLIN RN 10/28/2021 22:29 Problem: Daily Care Plan Goals Goal: Care Plan Documentation Flowsheets (Taken 10/28/20212033) Area of Focus: Sleep Goal This Shift: cluster cares * Plan of Care - Angela Blackwell RN - 10/28/2021 1352 EST Problem: Daily Care Plan Goals Goal: Care Plan Documentation Flowsheets (Taken 10/28/2021 1200) Area of Focus: Pain/ Comfort Goal This Shift: pt reports adequate pain control this shift Data: PPD #2 s/p c/s of a baby girl; [place] Action: Monitor VS, assess, encourage S2S and breast feeding Q 2-3 hrs. Response: VS and assessment stable, Fundus @U-2. Pain managed with T/M Q4 and now taking Dilaudid 6mg q 3hrs -- up from 4mg with IV dilaudid. Will continue to monitor and assist with care as needed. ANGELA BLACKWELL RN 10/28/2021 13:52 * Note - Glendy Chairez RN - 10/28/2021 0834 EST Images from the original note were not included. [facility] Consult Progress Note Consult Requested By: Patient Requested Reason for Consult: Hx difficult experience Subjective: I feel like things are going well this time Objective: Date of : Information for the patient's : Linda Lynn [[id number]] 10/26/2021 Time of Delivery: Information for the patient's : Linda Lynn [[id number]] 1103 Type of Delivery: Information for the patient's : Linda Lynn [[id number]] Low Segment Transverse [1059] Weight: 3190 g (7 lb 0.5 oz) Gestational Age: Information for the patient's : Linda Lynn [[id number]] 37 3/7 : Information for the patient's : Linda Lynn [[id number]] 7 Information for the patient's : Linda Lynn [[id number]] 8 GBS: Mother was negative. Anesthesia: Labor analgesia: None Delivery anesthesia: Spinal, Adjunctive analgesia: None Anesthetic complications: None Additional comments: History/ Complications: Primary C/S EBL 700 Maternal Lab: Lab Results Component Value Date HCT 27.3 (L) 10/27/2021 Lab: Information for the patient's : Linda Lynn [[id number]] No results found for: TCB Information for the patient's : Linda Lynn [[id number]] No results found for: TBIL Information for the patient's : Linda Lynn [[id number]] No results found for: CRP History: Older son Fritz (5 yo) was in NICU, difficulty with latching, weight loss. Needed to supplement. Nerma pumped x 1 month. Social History: FOB: Nermin They live in [place]. Nerma works in [employer]. Medical History: Pertinent Maternal History:hx of pelvic fracture w/ previous delivery Current Maternal Medications: acetaminophen (TYLENOL) tablet 1,000 mg, oral, Q8H PRN calcium carbonate (TUMS) 200 mg calcium (500 mg) per chewable tablet tablet,chewable 2 Tablet, oral, Q2H PRN carboprost (HEMABATE) 250 mcg/mL intramuscular injection, , ceFAZolin (ANCEF) syringe, , docusate sodium (COLACE) capsule 100 mg, oral, BID hydrocortisone 2.5 % cream, topical, Q6H PRN HYDROmorphone (DILAUDID) tablet 2-4 mg, oral, Q3H PRN HYDROmorphone (PF) (DILAUDID) 0.5 mg/0.5 mL syringe 0.2-0.6 mg, intravenous, Q4H PRN ibuprofen (MOTRIN) tablet 800 mg, oral, Q8H PRN lansinoh HPA lanolin, topical, PRN lidocaine (PF) 10 mg/mL (1 %) injection 2 mg, intradermal, PRN lidocaine 1 % injection 20 mL, intradermal, PRN methylergonovine (METHERGINE) 0.2 mg/mL (1 mL) injection, , miSOPROStol (CYTOTEC) 200 mcg tablet, , miSOPROStol (CYTOTEC) tablet 200 mcg, buccal, PRN miSOPROStol (CYTOTEC) tablet 800 mcg, rectal, PRN multivitamin vit-iron fumarate-FA (STUARTNATAL) 27 mg iron- 1 mg tablet 1 Tablet, oral, DAILY ondansetron (ZOFRAN-ODT) disintegrating tablet 4 mg, oral, Q4H PRN oxytocin in lactated ringers 30 units/500 ml, intravenous, CONTINUOUS And oxytocin in lactated ringers 30 units/500 ml, intravenous, CONTINUOUS polyethylene glycol 3350 (MIRALAX) packet 17 g, oral, DAILY simethicone (MYLICON) chewable tablet 80 mg, oral, QID PRN sodium chloride 0.9 % (flush) flush 5 mL, intravenous, Q8H tranexamic acid (CYKLOKAPRON) injection 1,000 mg, intravenous, PRN witch julianne (TUCKS) 50 % pad 1 pad, topical, PRN Maternal Anatomy: compression stripe on right nipple Pertinent History: DC + Bili 6.1 at 24 HOL Current Infant Medications: Information for the patient's : Linda Lynn [[id number]] Breast Milk Identification, oral, PRN lidocaine (PF) 10 mg/mL (1 %) injection 1 mL, subcutaneous, PRN sucrose 24% (TOOTSWEET) solution 0.3 mL, oral, PRN Anatomy: no abnormalities noted Infants Current Weight: Information for the patient's : BG ShaneJennyjason [[id number]] 2920 g (6 lb 7 oz) Change from Weight: Down ~6 oz from yesterday Information for the patient's : Linda Lynn [[id number]] -8% 24 hour I/O: BF: 10 with periods of cluster feeding VD: 5 ST: 7 Observation: Observed infant latch on each side. With proper positioning, able to latch comfortably on both sides Audile swallows noted on left side, especially with compressions Visable swallows noted on right rise with compressions Patient Education:Use of log, Prevention/treatment of engorgement, Community resources for , Typical pattern of night and cluster feeding, Risks of formula supplementation, Breast compressions and Basics of positioning/latch Assessment: Multipara with desire to EBF her second child, Verito. Working on positioning and latching. 37+3 weeks gestation. Hx of difficult breast feeding experience. Weight loss at 8.5% at D2 of life Risks for delayed lactogenesis II/LMS: Need for continued support from nursing and IBCLC Plan: STS as much as possible. Offer breast with cues, at least 8-12 times per 24 hours Watch for light sleep state cues if needed, to avoid longer than 3 hours without feeding Try to observe latch at least once per shift - help with this PRN Use breast compressions to keep baby swallowing PRN Hand expression to assist with latch and/or to provide extra milk after nursing sessions Provide gentle touch to firm ducts to encourage draining Laid back position if able LC to see daily while inpatient Handouts given: Feeding log; community resources Pump Equipment: Motif Time spent: In Room: 40 mins face to face - latch/feed observed Out of room: 20 mins chart prep + note LC to see: 10/29/2021 GLENDY CHAIREZ RN 10/28/2021 8:34 * Plan of Care - Suni Cavazos RN - 10/28/2021 0421 EST Problem: Daily Care Plan Goals Goal: Care Plan Documentation Flowsheets (Taken 10/28/2021 0013) Area of Focus: Sleep Goal This Shift: cluster care to promote rest Note: Data: Day 2 s/p c/s. . Plans on exclusively . Suffers from chronic pain after broken coccyx after previous delivery. Action: Clustered post and care, medicated per eMAR, encouraged rest in between caretimes and feedings, utilized NBN for period of uninterrupted rest. Response: Pt able to get one stretch of sleep overnight while baby was in the NBN. Pain continues to make things difficult for pt - increased frequency of PO Dilaudid to q3 hours. Continue to offer support for periods of rest. SUNI CAVAZOS RN 10/28/2021 4:18 * Plan of Care - Yan Wiseman RN - 10/27/2021 2238 EST Problem: Daily Care Plan Goals Goal: Care Plan Documentation Outcome: Ongoing Flowsheets (Taken 10/27/2021 1607) Area of Focus: Mobility Goal This Shift: Patient will ambulate in hallway x2 per 8 hrs Data: Patient in 2nd 24 hrs post C section, pt has hx of pelvic fracture and is consistently 7/10 for pain. Action: Patient instructed to ambulate in hallway this evening but did not ambulate outside of room. Patient has been independently up to BR x4 this evening. Will be seen by PT in am. Response: continue to escalate activity as tolerated. YAN WISEMAN RN 10/27/2021 22:38 * Note - Emily Mahmood RN - 10/27/2021 1549 EST Images from the original note were not included. [facility] Consult Initial Consult Consult Requested By: Patient Requested Reason for Consult: Hx difficult experience Subjective: Mine states that breast feeding was difficult with her 5 yo son Eitan. She is hoping to breast feed Verito. Baby is already doing well. Objective: Date of : Information for the patient's : Linda Lynn [[id number]] 10/26/2021 Time of Delivery: Information for the patient's : Linda Lynn [[id number]] 1103 Type of Delivery: Information for the patient's : Linda Lynn [[id number]] Low Segment Transverse [1059] Weight: 3190 g (7 lb 0.5 oz) Gestational Age: Information for the patient's : Linda Lynn [[id number]] 37 3/7 : Information for the patient's : Linda Lynn [[id number]] 7 Information for the patient's : Linda Lynn [[id number]] 8 GBS: Mother was negative. Anesthesia: Labor analgesia: None Delivery anesthesia: Spinal, Adjunctive analgesia: None Anesthetic complications: None Additional comments: History/ Complications: Primary C/S EBL 700 Maternal Lab: Lab Results Component Value Date HCT 27.3 (L) 10/27/2021 Infant Lab: Information for the patient's : Linda Lynn [[id number]] No results found for: TCB Information for the patient's : Linda Lynn [[id number]] No results found for: TBIL Information for the patient's : Linda Lynn [[id number]] No results found for: CRP History: Older son Eitan (5 yo) was in NICU, difficulty with latching, weight loss. Needed to supplement. Nerma pumped x 1 month. Social History: FOB: Nermin They live in [place]. Jennyjason works in [employer] office. Medical History: Pertinent Maternal History:hx of pelvic fracture w/ previous delivery Current Maternal Medications: acetaminophen (TYLENOL) tablet 1,000 mg, oral, Q8H PRN calcium carbonate (TUMS) 200 mg calcium (500 mg) per chewable tablet tablet,chewable 2 Tablet, oral, Q2H PRN carboprost (HEMABATE) 250 mcg/mL intramuscular injection, , ceFAZolin (ANCEF) syringe, , docusate sodium (COLACE) capsule 100 mg, oral, BID hydrocortisone 2.5 % cream, topical, Q6H PRN HYDROmorphone (DILAUDID) tablet 2-4 mg, oral, Q4H PRN HYDROmorphone (PF) (DILAUDID) 0.5 mg/0.5 mL syringe 0.2-0.6 mg, intravenous, Q4H PRN ibuprofen (MOTRIN) tablet 800 mg, oral, Q8H PRN immune globulin Rho D (Rhogam) injection 300 mcg, intramuscular, PRN lansinoh HPA lanolin, topical, PRN lidocaine (PF) 10 mg/mL (1 %) injection 2 mg, intradermal, PRN lidocaine 1 % injection 20 mL, intradermal, PRN methylergonovine (METHERGINE) 0.2 mg/mL (1 mL) injection, , miSOPROStol (CYTOTEC) 200 mcg tablet, , miSOPROStol (CYTOTEC) tablet 200 mcg, buccal, PRN miSOPROStol (CYTOTEC) tablet 800 mcg, rectal, PRN multivitamin vit-iron fumarate-FA (STUARTNATAL) 27 mg iron- 1 mg tablet 1 Tablet, oral, DAILY ondansetron (ZOFRAN-ODT) disintegrating tablet 4 mg, oral, Q4H PRN oxytocin in lactated ringers 30 units/500 ml, intravenous, CONTINUOUS And oxytocin in lactated ringers 30 units/500 ml, intravenous, CONTINUOUS polyethylene glycol 3350 (MIRALAX) packet 17 g, oral, DAILY simethicone (MYLICON) chewable tablet 80 mg, oral, QID PRN sodium chloride 0.9 % (flush) flush 5 mL, intravenous, Q8H tranexamic acid (CYKLOKAPRON) injection 1,000 mg, intravenous, PRN witch julianne (TUCKS) 50 % pad 1 pad, topical, PRN Maternal Anatomy: no abnormalities noted Pertinent Infant History: DC + Bili 6.1 at 24 HOL Current Infant Medications: Information for the patient's : Linda Lynn [[id number]] Breast Milk Identification, oral, PRN lidocaine (PF) 10 mg/mL (1 %) injection 1 mL, subcutaneous, PRN sucrose 24% (TOOTSWEET) solution 0.3 mL, oral, PRN Infant Anatomy: no abnormalities noted Infants Current Weight: Information for the patient's : Linda Lynn [[id number]] 3085 g (6 lb 12.8 oz) Change from Weight: Information for the patient's : Linda Lynn [[id number]] -3% 24 hour I/O: BF: 5 x w/ more attempts VD: 4 ST: 2 Observation: Entered room and introduced self/role. Knew family from [facility] Reviewed goals for breast feeding. Assisted Mine to latch Verito onto left side (preferred football due to incision). Latched on/off was sleepy. Nerjason then needed to get up to use restroom. Verito was then awake, alert, cueing. Easily latched/fed on right side in football x 8 mins. Discussed BFing basics, positions, latching, cluster feeding. Reviewed importance of skin to skin, hand expression. Has a pump already. Plans to be seen by IBCLC again tomorrow. Patient Education:Community resources for , Typical pattern of night and cluster feeding, hand expression, Breast compressions and Basics of positioning/latch Assessment: Multipara with desire to EBF her second child, Verito. Working on positioning and latching. 37+3 weeks gestation. Hx of difficult breast feeding experience. Risks for delayed lactogenesis II/LMS: Need for continued support from nursing and IBCLC Plan: STS as much as possible. Offer breast with cues, at least 8-12 times per 24 hours Watch for light sleep state cues if needed, to avoid longer than 3 hours without feeding Try to observe latch at least once per shift - help with this PRN Use breast compressions to keep baby swallowing PRN Hand expression to assist with latch and/or to provide extra milk after nursing sessions Laid back position if able LC to see daily while inpatient Handouts given: None yet Pump Equipment: Motif Time spent: In Room: 55 mins face to face - latch/feed observed Out of room: 20 mins chart prep + note LC to see: 10/28/2021 EMILY MAHMOOD RN 10/27/2021 15:49 * Plan of Care - Leslee Doshi RN - 10/27/2021 1454 EST Problem: Daily Care Plan Goals Goal: Care Plan Documentation 10/27/2021 1454 by Leslee Doshi RN Outcome: Met This Shift 10/27/2021 0946 by Leslee Doshi RN Outcome: Ongoing Mom is one day out from a c. Section. Mom has a history of chronic pain since her first delivery when she fractured her coccyx. Mom voided 100 cc, she has showered, ff down 2. Problem: Pain: Goal: Pain level will decrease 10/27/2021 1454 by Leslee Doshi RN Outcome: Met This Shift 10/27/2021 0946 by Leslee Doshi RN Outcome: Ongoing Data: mom is getting dilaudid 4 mg po for her coccyx pain and also iv dilaudid 0.4 mg because she feels like the oral does nothing. Mom was asleep when I went to give her her tylenol and motrin at 1416. Her is to ring when she wakes up. Baby is in the nbn sleeping. We are to get emily sevilla when baby wakes up. Mom is to see physical therapy at some point. Action: medicate as ordered. Cluster care so mom can sleep. Mom coccyx pain is a 7 out of 10. The lowest it got was a 5 out of 10 with both oral and iv dilaudid. Response: mom was finally able to sleep this afternoon. When she wakes up she needs to drink fluids and void and then we need to scan forresidual. LESLEE DOSHI RN 10/27/2021 14:56 Problem: Lifecycle: : Goal: Chance of risk for complications during the period will decrease Outcome: Met This Shift * Plan of Care - Leslee Doshi RN - 10/27/2021 0972 EST Problem: Daily Care Plan Goals Goal: Care Plan Documentation Outcome: Ongoing Mothers daily goal is to be comfortable. DATA; She complains of abd. Pain a 7 out of 10 and coccyx pain a 7/10 and the spot where she got the epidural is bothering her. Mom had po dilaudid 4 mg and said it did not a thing so then she got ivdilaudid that made her pain go from a 7 to a 5. Mom knows that she needs to get moving and to get her doan out. efficiency analyst did not think she moved well enough to get her doan out so we have requested a physical therapy consult for her chronic pain. And to get recommendations on how to make her move and be the most comfortable. Action: once pain meds kick in get mom 00b to bathroom and pull doan. Mom says she has a hx of bladder problems and enjoys the doan. Response: mom pain decreased slightly with iv dilaudid. Problem: Pain: Goal: Pain level will decrease Outcome: Ongoing * Plan of Care - Tonya Quiroz RN - 10/27/2021 5341 EST Problem: Daily Care Plan Goals Goal: Care Plan Documentation Outcome: Ongoing Data: Patient is a 30 year old POD #1 s/p primary at 37+3 weeks gestation for hx pelvic fx r/t previous vaginal delivery. O negative GBS negative. . PIV to right arm is saline locked. Action: Vital signs and shift assessment completed. Assessed pain level frequently and offered painmedication per Mar, heat and ice. Assisted patient with repositioning. Patient assisted OOB this shift. Hourly rounding completed, clustered cares to promote rest. Response: Vital signs stable. Pressure dressing placed yesterday remains dry and intact without visible drainage. Doan remains in place, draining large amounts of clear yellow urine. Patient rated pain 5-8/10 overnight. Attempted several interventions to decrease pain level including repositioning, ice and heat packs, draining doan, frequent medication. Pt received IV dilaudid x2 overnight due to high pain levels. Patient ambulated once this shift, to bathroom and back. well, latching independently. TONYA QUIROZ RN 10/27/2021 5:27 * L&D Delivery Note - Marques Bazzi MD - 10/26/2021 1151 EST Delivery Information Mine Lynn is a 30 y.o. at 37w3d delivered by Low Segment Transverse . Linda Lynn [id number] at Gestational Age: 37w3d, Delivered by Low Segment Transverse , Weighed 3190 g (7 lb 0.5 oz), 7 /8 , Sent to [place] nursery after delivery. Maternal: Delivery Plan Outcome Planned home ? Not planned External cephalic version attempt indicated? Not indicated Delivery as waterbirth? No SUNITA after : Not applicable Delivery Indications Maternal Indications for delivery/comments: Labor Indications for delivery/comments: Not applicable Intrapartum Medication Intrapartum preeclampsia: No Intrapartum Mg: No Intrapartum Mg Indication: N/A Labor Labor onset: No SUNITA Cervical ripening/induction agent: N/A Labor augmentation: None Augmentation indication/comments: N/A Sepsis Risk Scores (based on CDC incidence of 0.02/1000 live births) Calculated Risk at Score: Adjusted Score (Well Appearing): Adjusted Score (Equivocal): Adjusted Score (Clinical Illness): Sepsis Risk Factors used in score calculation Gestational Age: w, d Mother's max temp within 12 hours prior to delivery: Length of Rupture of Membranes: Hours Maternal GBS Status: Intrapartum Antibiotics: Other Intrapartum Infection Factors PROM >= 18 Hours: N/A Maternal Fever >= 38 C: N/A Maternal Tachycardia > 100 bpm: N/A Tachycardia > 160 bpm: N/A Uterine Tenderness: N/A Foul Odor of Amniotic Fluid: N/A Intra-Amniotic Infection N/A HIV Status/Treatment: Not indicated Hepatitus B Surface Antigen: Negative Syphilis: Negative Assessment monitoring: Contiunous - External heart rate characteristics/comments: Cat 1 demise: N/A Anesthesia Labor analgesia: None Delivery anesthesia: Spinal, Adjunctive analgesia: None Anesthetic complications: None Additional comments: Maternal Delivery Delivery type: Low Segment Transverse Presentation: Vertex Position: OP Planned indication: Other Primary maternal choice Forceps Attempted: No Vacuum Attempted: No Operative Vaginal Delivery Indication: N/A Station - Initial Application: N/A Details of Shoulder Dystocia (if applicable) Dystocia Present? No Maneuvers Performed (if applicable) Placenta Delivered: 10/26/2021 11:04 Delivery method: Spontaneous Morphology: Normal Disposition: Refrigerator Cord Details Vessels: 3 Vessels Complications: None Nuchal intervention: Nuchal cord description: Cord around: Number of loops: Gases Sent? No Cord Blood Sent: Stem cell collection (by MD)? No Comments: Lacerations/Episiotomy Laceration Repaired? Perineal: Periurethral: Labial: Sulcus: Vaginal: Cervical: Episiotomy: Indication: Repair suture: Procedures Additional Procedures: None Hemorrhage (if applicable) hemorrhage: None Blood Loss Mother: Mine Lynn #[id number] Start of Mother's Information Delivery Blood Loss 10/26/21 1018 - 10/26/21 1151 EBL Anesthesia 700 mL Total 700 mL End of Mother's Information Mother: Mine Lynn #[id number] Uterotonics/PPH Procedures: Uterine massage, Oxytocin, Blood Products Transfused: (if applicable) Labor Length Duration of 1st Stage: hours minutes Duration of 2nd Stage: hours minutes Duration of 3rd Stage: 0 hours 0 minutes Duration of Cord Clamp Delay: 60 seconds Precipitous Labor (<3 hours): No Prolonged Labor (>20 hours): No : Date of : 10/26/2021 Time of : 1103 Sex: female Weight (grams): 3190 g (7 lb 0.5 oz) Length (in): 19 Head circumference (in): 13.386 Observed anomalies, comments: Meconium Present at Delivery: No (<37 wks): No Late (34-37 wks): No Steroid Course: Not indicated Indication: N/A PPROM Gestational Age: N/A APGARS Totals: 7 /8 /-/-/- Resuscitation Resuscitation: Suctioning Delivery Personnel Delivering Clinician: MARQUES BAZZI Additional Personnel: DAYRON BALES;CHRISTELLE CHRISTIANSON ROM Duration: (Delivered) 4h 3m Induction Duration (if applicable): Labor and Delivery comments: Mine Lynn is a 30 y.o. who presented at 37w3d in active labor with a planned due to history of a pelvic fracture with her previous delivery. Pleasesee full surgical dictation for additional details. EBL 700cc. No complications. IMarques MD, was present and scrubbed throughout the entire procedure. Marques Bazzi MD documented in this encounter Plan of Treatment Upcoming Encounters Date Type Department Care Team (Late st Contact Info) Description 11/18/2024 8:15 EST Office Visit [facility] Pelvic Medicine and Reconstructive Surgery - Medical Office Building [facility] [address] [place] [id number] Julia Terrell PA-C [address] [place] [address] Medical Office Building, [address] [place] [phone] 11/25/2024 8:00 EST Rehab Therapy Visit [facility] Rehabilitation Therapy - Medical Office Building [address] [place] [address] [phone] Cira Jackson DPT [address] [place] [address], [address] [place] [phone] 12/02/2024 8:00 EST Rehab Therapy Visit [facility] Rehabilitation Therapy - Medical Office Building [address] [place] [phone] Cira Jackson DPT [address] [place] [address] [address] [place] [phone] 12/09/2024 8:00 EST Rehab Therapy Visit [facility] Rehabilitation Therapy - Medical Office Building [address] [place] [address] [phone] Cira Jackson, ROBERTO [address] [place] [address], [facility], [address] [place] [phone] 12/16/2024 9:00 EST Rehab Therapy Visit [facility] Rehabilitation Therapy - Medical Office Building [address] [place] [address] Cira Jackson DPT [address] [place] [address], [facility], [address] [place] [phone] 12/23/2024 9:00 EST Rehab Therapy Visit [facility] Rehabilitation [facility] - Medical Office Building [address] [place] [address] Cira Jackson DPT [address] [place] [address], [facility], [address] [place] [phone] Scheduled Referrals Name Type Priority Associated Diagnoses Order Schedule PROVIDER FOLLOW-UP INSTRUCTIONS Outpatient Referral Routine/Next Available Ordered: 10/29/2021 PROVIDER FOLLOW-UP INSTRUCTIONS Outpatient Referral Routine/Next Available Ordered: 10/29/2021 documented as of this encounter Procedures Procedure Name Priority Date/Time Associated Diagnosis Comments SCREEN TEST Routine 10/27/2021 11: 48 EST COMPLETE BLOOD COUNT Routine 10/27/2021 11:48 EST POC US ANESTHESIA NERVE BLOCK TAP Routine 10/26/2021 11:36 EST SECTION ONLY 10/26/2021 10:08 EST Encounter for maternal care for low transverse scar from repeat delivery ZZCOVID-19 TEST [facility] PCR Today 10/26/2021 10:05 EST COVID-19 TESTING Routine 10/26/2021 10:0 5 EST ANTIBODY IDENTIFICATION Today 10/26/19 9:59 EST TYPE AND SCREEN STAT 10/26/2021 9:59 EST COMPLETE BLOOD COUNT STAT 10/26/2021 9:58 EST documented in this encounter Results * (ABNORMAL) COMPLETE BLOOD COUNT (10/27/2021 11:48 EST) WBC 10.09 4.00 - 12.40 K/cmm 10/27/2021 12:29 [facility] RBC 3.18(L) 3.86 - 5.04 M/cmm 10/27/2021 12:29 [facility] Hemoglobin 9.1(L) 11.6 - 15.2 gm/dL 10/27/2021 12:29 [facility] HCT 27.3(L) 34.9 - 44.4 % 10/27/2021 12:29 [facility] MCV 86 81 - 98 fl 10/27/2021 12:29 [facility] MCH 28.6 26.7 - 33.3 pg 10/27/2021 12:29 [facility] MCHC 33.3 32.1 - 35.9 gm/dL 10/27/2021 12:29 [facility] RDW-CV 14.0 <14.7 % 10/27/2021 12:29 [facility] RDW-SD 43.7 <50.4 fl 10/27/2021 12:29 [facility] PLT 249 141 - 377 K/cmm 10/27/2021 12:29 [facility] MPV 11.0 9.5 - 12.7 fl 10/27/2021 12:29 [facility] Blood VENOUS BLOOD / Unknown Venipuncture / Unknown 10/27/2021 11:48 EST 10/27/2021 12:16 EST Sarbjit Escobedo MD HEMATOLOGY & PF4 ORDERABLES Milena l Result [facility] [address] [place] [address] * SCREEN TEST (10/27/2021 11:48 EST) Screen Test NEGATIVE 10/27/2021 15:08 EST [facility] Blood VENOUS BLOOD / Unknown Venipuncture / Unknown 10/27/2021 11:48 EST 10/27/2021 12:37 EST us Marques Bazzi MD BLOOD BANK TESTS Final Res ult Performing Organization Address [facility] Co de Phone Number [facility] [address] [place] [address] * POC US ANESTHESIA NERVE BLOCK TAP (10/26/2021 11:36 EST) Narrative 10/26/2021 11:36 EST This is a non-reportable exam. us Tomeka Fuentes MD [facility] POC ORDERABLES Final R esult * COVID-19 TEST [facility] PCR (10/26/2021 10:05 EST) Swab ENTIRE NASOPHARYNX / Unknown Swab / Unknown 10/26/2021 10:05 EST 10/26/2021 10:11 EST us Marques Bazzi MD MICROBIOLOGY - GENERAL ORD ERABLES Final Result Performing Organization Address [facility] Co de Phone Number [facility] [address] [place] [address] * COVID-19 TESTING (10/26/2021 10:05 EST) COVID-19 rt-PCR Result Negative Negative 10/26/2021 15:06 EST [facility] Comment: This test has not been FDA cleared or approved. This test has been authorized by FDA under an EUA for use by authorized laboratories. This test has been authorized only for detection of nucleic acid from 2019-, not for any other viruses or pathogens. This test is only authorized for the duration of the declaration that circumstances exist justifying the authorization of emergency use of in vitro diagnostic tests for detection and/or diagnosis of 2019-nCoV under section 564(b)(1) of Act, 21 U.S.C ?? 360bbb-3(b) (1), unless the authorization is terminated or revoked sooner. Negative results do not preclude 2019-nCoV infection and should not be used as the sole basis for treatment or other patient management decisions. Negative results must be combined with clinical observations, patient history, and epidemiological information. Performed on the GRUZOBZOR Fusion instrument Performing Lab [place] [facility] 10/26/2021 15:06 EST [facility] Swab ENTIRE NASOPHARYNX / Unknown Swab / Unknown 10/26/2021 10:05 EST 10/26/2021 10:11 EST us Marques Bazzi MD MICROBIOLOGY - GENERAL ORD ERABLES Final Result Performing Organization Address [facility]/ZIP Co de Phone Number [facility] [address] [place] [address] * ANTIBODY IDENTIFICATION (10/26/2021 9:59 EST) Antibody Identification Anti-D; patient recd RhIg 10/26/2021 13:37 EST [facility] Blood VENOUS BLOOD / Unknown Venipuncture / Unknown 10/26/2021 9:59 EST 10/26/2021 10:06 EST us Marques Bazzi MD BLOOD BANK TESTS Final Res ult [facility] [address] [place] [address] * TYPE AND SCREEN (10/26/2021 9:59 EST) ABO O 10/26/2021 11:13 EST [facility] Rh Factor Negative 10/26/2021 11:13 EST [facility] Antibody Screen Positive 10/26/2021 11:13 EST [facility] Specimen Expires: 10/29/2021 @ 23:59 10/26/2021 11:13 [facility] Blood VENOUS BLOOD / Unknown Venipuncture / Unknown 10/26/2021 9:59 EST 10/26/2021 10:06 EST us Marques Bazzi MD BLOOD BANK TESTS Edited Re sult - Final Performing Organization Address City/State/[facility] Co de Phone Number [facility] [address] [facility] [place] [address] * (ABNORMAL) COMPLETE BLOOD COUNT (10/26/2021 9:58 EST) WBC 7.34 4.00 - 12.40 K/cmm 10/26/2021 10:18 [facility] RBC 3.65(L) 3.86 - 5.04 M/cmm 10/26/2021 10:18 [facility] Hemoglobin 10.8(L) 11.6 - 15.2 gm/dL 10/26/2021 10:18 [facility] HCT 32.3(L) 34.9 - 44.4 % 10/26/2021 10:18 [facility] MCV 89 81 - 98 fl 10/26/2021 10:18 [facility] MCH 29.6 26.7 - 33.3 pg 10/26/2021 10:18 [facility] MCHC 33.4 32.1 - 35.9 gm/dL 10/26/2021 10:18 [facility] RDW-CV 13.9 <14.7 % 10/26/2021 10:18 [facility] RDW-SD 44.9 <50.4 fl 10/26/2021 10:18 [facility] PLT 243 141 - 377 K/cmm 10/26/2021 10:18 [facility] MPV 10.7 9.5 - 12.7 fl 10/26/2021 10:18 [facility] Blood VENOUS BLOOD / Unknown Venipuncture / Unknown 10/26/2021 9:58 EST 10/26/2021 10:07 EST us Marques Bazzi MD HEMATOLOGY & PF4 ORDERABLE S Final Result [facility] [address] [place] [address] documented in this encounter Visit Diagnoses Diagnosis Supervision of other normal - Primary Supervision of other normal Chronic pelvic pain in female Unspecified symptom associated with female genital organs Encounter for maternal care for low transverse scar from repeat delivery Encounter for maternal care for low transverse scar from repeat delivery documented in this encounter Admitting Diagnoses Diagnosis Supervision of other normal Encounter for maternal care for low transverse scar from repeat delivery documented in this encounter Administered Medications Inactive Administered Medications - up to 3 most recent administrations Medication Order MAR Action Action Date Dose Rate Site acetaminophen (TYLENOL) tablet 1,000 mg 1,000 mg, oral, EVERY 8 HOURS PRN, Starting on Mon10/26/21 at 1202, Until Mon10/29/21 at 1535, Pain, Routine, Release Given 10/29/2021 9:54 EST 1,000 mg Given 10/29/2021 1:45 EST 1,000 mg Given 10/28/2021 17:16 EST 1,000 mg carboprost (HEMABATE) 250 mcg/mL intramuscular injection 1 dose, Starting on Mon10/26/21 at 0948, Until Mon10/29/21 at 1535 ceFAZolin (ANCEF) syringe 1 dose, Starting on Mon10/26/21 at 0948, Until Mon10/29/21 at 1535 docusate sodium (COLACE) capsule 100 mg 100 mg, oral, 2 TIMES DAILY, First dose on Mon10/26/21 at 2100, Until Discontinued, Routine, Given 10/29/2021 8:31 EST 100 mg Given 10/28/2021 20:33 EST 100 mg Given 10/28/2021 8:29 EST 100 mg famotidine (PEPCID) 20 mg/2 mL injection 1 dose, Starting on Mon10/26/21 at 0951, Until Mon10/26/21 at 1000 Given 10/26/2021 10:00 EST 20 mg HYDROmorphone (DILAUDID) tablet 2-4 mg 2-4 mg, oral, EVERY 4 HOURS PRN, Starting on Mon10/26/21 at 1155, Until Mon10/27/21 at 2345, Pain, Routine Given 10/27/2021 20:25 EST 4 mg Given 10/27/2021 16:09 EST 4 mg Given 10/27/2021 12:23 EST 4 mg HYDROmorphone (DILAUDID) tablet 2-4 mg 2-4 mg, oral, EVERY 3 HOURS PRN, Starting on Mon10/27/21 at 2345, Until Mon10/28/21 at 0844, Pain, Routine Given 10/28/2021 8:37 EST 4 mg Given 10/28/2021 6:07 EST 4 mg Given 10/28/2021 3:00 EST 4 mg HYDROmorphone (DILAUDID) tablet 6 mg 6 mg, oral, EVERY 3 HOURS PRN, Starting on Mon10/28/21 at 0842, Until Mon10/29/21 at 1535, Pain, Routine Given 10/29/2021 11:55 EST 6 mg Given 10/29/2021 8:31 EST 6 mg Given 10/29/2021 5:50 EST 6 mg HYDROmorphone (PF) (DILAUDID) 0.5 mg/0.5 mL syringe 0.2-0.6 mg 0.2-0.6 mg, intravenous, EVERY 4 HOURS PRN, Starting on Mon10/26/21 at 1155, Until Mon10/28/21 at 0844, Pain, Routine Given 10/27/2021 22:15 EST 0.5 mg Given 10/27/2021 18:07 EST 0.5 mg Given 10/27/2021 13:22 EST 0.4 mg ibuprofen (MOTRIN) tablet 800 mg 800 mg, oral, EVERY 8 HOURS PRN, Starting on Mon10/26/21 at 1202, Until Mon10/29/21 at 1535, Pain, Routine, Release Given 10/29/2021 9:54 EST 800 mg Given 10/29/2021 1:45 EST 800 mg Given 10/28/2021 17:17 EST 800 mg lansinoh HPA lanolin topical, PRN, Starting on Mon10/26/21 at 1406, Until Mon10/29/21 at 1535, Other, breast feeding, Given 10/27/2021 22:15 EST lidocaine 5 % (LIDODERM) patch 1 Patch 1 Patch, transdermal, Administer over 12 Hours, DAILY, First dose on Mon10/29/21 at 0900, Until Discontinued, Routine Patch Applied 10/29/2021 8:31 EST 1 Patch Back methylergonovine (METHERGINE) 0.2 mg/mL (1 mL) injection 1 dose, Starting on Mon10/26/21 at 0948, Until Mon10/29/21 at 1535 miSOPROStol (CYTOTEC) 200 mcg tablet 1 dose, Starting on Mon10/26/21 at 0949, Until Mon10/29/21 at 1535 ondansetron (PF) (ZOFRAN) 4 mg/2 mL injection 1 dose, Starting on Mon10/26/21 at 0947, Until Mon10/26/21 at 0959 Given 10/26/2021 9:59 EST 4 mg ondansetron (ZOFRAN-ODT) disintegrating tablet 4 mg 4 mg, oral, EVERY 4 HOURS PRN, Starting on Mon10/26/21 at 1711, Until Mon10/29/21 at 1535, Nausea, Routine Given 10/28/2021 6:10 EST 4 mg Given 10/27/2021 18:12 EST 4 mg Given 10/27/2021 9:15 EST 4 mg oxytocin in lactated ringers 30 units/500 ml 334 mL/hr, intravenous, CONTINUOUS, Starting on Mon10/26/21 at 1430, Until Mon10/29/21 at 1535, Routine, oxytocin in lactated ringers 30 units/500 ml 95 mL/hr, intravenous, CONTINUOUS, Starting on Mon10/26/21 at 1430, Until Mon10/29/21 at 1535, Routine, polyethylene glycol 3350 (MIRALAX) packet 17 g 17 g, oral, DAILY, First dose on Mon10/27/21 at 0900, Until Discontinued, Routine sertraline (ZOLOFT) tablet 25 mg 25 mg, oral, DAILY, First dose on Mon10/28/21 at 0900, Until Discontinued, Routine Given 10/29/2021 8:32 EST 25 mg Given 10/28/2021 9:28 EST 25 mg simethicone (MYLICON) chewable tablet 80 mg 80 mg, oral, 4 TIMES DAILY PRN, Starting on Mon10/26/21 at 1406, Until Mon10/29/21 at 1535, Flatulence, Cramping, Routine, Given 10/26/2021 20:29 EST 80 m g sodium chloride 0.9 % (flush) flush 5 mL 5 mL, intravenous, EVERY 8 HOURS, First dose on Mon10/26/21 at 1600, Until Discontinued, Routine, Release Given 10/28/2021 0:13 EST 5 mL Given 10/27/2021 13:23 EST 5 mL Given 10/27/2021 9:14 EST 5 mL sodium citrate-citric acid (BICITRA) 500-334 mg/5 mL solution 1 dose, Starting on Mon10/26/21 at 0948, Until Mon10/26/21 at 1010 Given 10/26/2021 10:10 EST Additional Administered Medications Medication Order MAR Action Action Date Dose Rate Site Rho(D) Immune Globulin IM Intramuscular Given 10/28/2021 8:31 EST 300 mcg Left Delt oid documented in this encounter Discontinued Medications Medication Sig Discontinue Reason Start Date End Da te oxyCODONE (ROXICODONE) 5 mg immediate release tablet Take 1 Tablet by mouth every 12 hours as needed for up to 5 doses for Pain. Daily Max: 10 mg 10/25/2021 10/29/2021 documented as of this encounter Active and Recently Administered Medications Times are shown in EST. Scheduled Medication Order 10/27/2021 10/28/2021 10/29/2021 docusate sodium (COLACE) capsule 100 mg 100 mg, oral, 2 TIMES DAILY, First dose on Mon10/26/21 at 2100, Until Discontinued, Routine, 0824 (Given - Provider: Leslee Doshi, LAZARA)2024 (Given - Provider: Yan Wiseman, LAZARA) 828 (Given - Provider: Angela Blackwell, LAZARA)2032 (Given - Provider: Lili Colin, LAZARA) 830 (Given - Provider: Angela Blackwell, RN) lidocaine 5 % (LIDODERM) patch 1 Patch 1 Patch, transdermal, Administer over 12 Hours, DAILY, First dose on Mon10/29/21 at 0900, Until Discontinued, Routine 830 (Patch Applied - Provider: Angela Blackwell RN - Comment: lower back)2030 (Due: Patch Removed - Provider: Angela Blackwell RN) multivitamin vit-iron fumarate-FA (STUARTNATAL) 27 mg iron- 1 mg tablet 1 Tablet 1 Tablet, oral, DAILY, First dose on Mon10/26/21 at 1430, Until Discontinued, Routine, 0825 (Not Given - Provider: Leslee Doshi RN - Reason: Patient/family refused) 0801 (Not Given - Provider: Angela Blackwell RN - Reason: Patient/family refused) 0831 (Not Given - Provider: Angela Blackwell RN - Reason: Patient/family refused) polyethylene glycol 3350 (MIRALAX) packet 17 g 17 g, oral, DAILY, First dose on Mon10/27/21 at 0900, Until Discontinued, Routine 0826 (Not Given - Provider: Leslee Doshi RN - Reason: Patient/family refused) 0836 (Not Given - Provider: Angela Blackwell RN - Reason: Patient/family refused) 0832 (Not Given - Provider: Angela Blackwell RN - Reason: Patient/family refused) sertraline (ZOLOFT) tablet 25 mg 25 mg, oral, DAILY, First dose on Mon10/28/21 at 0900, Until Discontinued, Routine 0928 (Given - Provider: Angela Blackwell RN) 0832 (Given - Provider: Angela Blackwell RN) sodium chloride 0.9 % (flush) flush 5 mL (CANCELED)(Linked Group 1) 5 mL, intravenous, EVERY 8 HOURS, First dose on Mon10/26/21 at 1600, Until Discontinued, Routine, Release 0914 (Given - Provider: Leslee Doshi RN - Comment: done before and after iv meds)1323 (Given - Provider: Leslee Doshi RN - Comment: done before and after iv med)1600 (Canceled Entry - Provider: Leslee Doshi RN) 0013 (Given - Provider: Suni Cavazos RN)0802 (Not Given - Provider: Angela Blackwell RN - Reason: Loss of IV access) Continuous Medication Order 10/27/2021 10/28/2021 10/29/2021 oxytocin in lactated ringers 30 units/500 ml(Linked Group 2) 334 mL/hr, intravenous, CONTINUOUS, Starting on Mon10/26/21 at 1430, Until Mon10/29/21 at 1535, Routine, oxytocin in lactated ringers 30 units/500 ml(Linked Group 2) 95 mL/hr, intravenous, CONTINUOUS, Starting on Mon10/26/21 at 1430, Until Mon10/29/21 at 1535, Routine, PRN Medication Order 10/27/2021 10/28/2021 10/29/2021 acetaminophen (TYLENOL) tablet 1,000 mg 1,000 mg, oral, EVERY 8 HOURS PRN, Starting on Mon10/26/21 at 1202, Until Mon10/29/21 at 1535, Pain, Routine, Release 0616 (Given - Provider: Tonya Quiroz RN)1513 (Given - Provider: Leslee Doshi RN) 0014 (Given - Provider: Suni Cavazos RN)0829 (Given - Provider: Angela Blackwell RN)1716 (Given - Provider: Angela Blackwell, LAZARA) 0145 (Given - Provider: Julieta Bellamy, LAZARA)0954 (Given - Provider: Angela Blackwell, LAZARA) calcium carbonate (TUMS) 200 mg calcium (500 mg) per chewable tablet tablet,chewable 2 Tablet 2 Tablet, oral, EVERY 2 HOURS PRN, Starting on Mon10/26/21 at 1406, Until Mon10/29/21 at 1535, Heartburn, Indigestion, Routine, hydrocortisone 2.5 % cream topical, EVERY 6 HOURS PRN, Starting on Mon10/26/21 at 1202, Until Mon10/29/21 at 1535, Itching, Hemorrhoids, Release HYDROmorphone (DILAUDID) tablet 2-4 mg (CANCELED) 2-4 mg, oral, EVERY 4 HOURS PRN, Starting on Mon10/26/21 at 1155, Until Mon10/27/21 at 2345, Pain, Routine 0325 (Given - Provider: Tonya Quiroz RN)0824 (Given - Provider: Leslee Doshi RN)1223 (Given - Provider: Leslee Toyin, RN)1609 (Given - Provider: Yan Wiseman RN)2025 (Given - Provider: Yan Wiseman RN) HYDROmorphone (DILAUDID) tablet 2-4 mg (CANCELED) 2-4 mg, oral, EVERY 3 HOURS PRN, Starting on Mon10/27/21 at 2345, Until Mon10/28/21 at 0844, Pain, Routine 0014 (Given - Provider: Suni Cavazos RN)0300 (Given - Provider: Suni Cavazos RN)0607 (Given - Provider: Tonya Quiroz RN)0837 (Given - Provider: Angela Blackwell RN) HYDROmorphone (DILAUDID) tablet 6 mg 6 mg, oral, EVERY 3 HOURS PRN, Starting on Mon10/28/21 at 0842, Until Mon10/29/21 at 1535, Pain, Routine 1119 (Given - Provider: Angela Blackwell RN)1422 (Given - Provider: Angela Blackwell RN)1717 (Given - Provider: Angela Blackwell RN)2034 (Given - Provider: Lili Colin RN)2333 (Given - Provider: Lili Colin, LAZARA) 0227 (Given - Provider: Lili Colin RN)0550 (Given - Provider: Eri Davila RN)0831 (Given - Provider: Angela Blackwell RN)1155 (Given - Provider: Angela Blackwell RN) HYDROmorphone (PF) (DILAUDID) 0.5 mg/0.5 mL syringe 0.2-0.6 mg (CANCELED) 0.2-0.6 mg, intravenous, EVERY 4 HOURS PRN, Starting on Mon10/26/21 at 1155, Until Mon10/28/21 at 0844, Pain, Routine 0427 (Given - Provider: Tonya Quiroz RN)0913 (Given - Provider: Leslee Doshi RN)1322 (Given - Provider: Leslee Doshi RN)1807 (Given - Provider: Yan Wiseman, LAZARA)2215 (Given - Provider: Yan Wiseman, RN) ibuprofen (MOTRIN) tablet 800 mg 800 mg, oral, EVERY 8 HOURS PRN, Starting on Mon10/26/21 at 1202, Until Mon10/29/21 at 1535, Pain, Routine, Release 0616 (Given - Provider: Tonya Quiroz, RN)1512 (Given - Provider: Leslee Doshi RN) 0014 (Given - Provider: Suni Cavazos, LAZARA)0829 (Given - Provider: Angela Blackwell, RN)1717 (Given - Provider: Angela Blackwell, RN) 0145 (Given - Provider: Julieta Bellamy, LAZARA)0954 (Given - Provider: Angela Blackwell, RN) lansinoh HPA lanolin topical, PRN, Starting on Mon10/26/21 at 1406, Until Mon10/29/21 at 1535, Other, breast feeding, 2215 (Given - Provider: Yan Wiseman RN) lidocaine (PF) 10 mg/mL (1 %) injection 2 mg 2 mg, intradermal, PRN, 4 doses, Starting on Mon10/26/21 at 0953, Until Mon10/29/21 at 1535, peripheral intravenous catheter placement, Routine lidocaine 1 % injection 20 mL 20 mL, intradermal, PRN, Starting on Mon10/26/21 at 0953, Until Mon10/29/21 at 1535, for repair, Routine miSOPROStol (CYTOTEC) tablet 200 mcg 200 mcg, buccal, PRN, Starting on Mon10/26/21 at 0953, Until Mon10/29/21 at 1535, Other, , STAT miSOPROStol (CYTOTEC) tablet 800 mcg 800 mcg, rectal, PRN, Starting on Mon10/26/21 at 0953, Until Mon10/29/21 at 1535, Other, , STAT ondansetron (ZOFRAN-ODT) disintegrating tablet 4 mg 4 mg, oral, EVERY 4 HOURS PRN, Starting on Mon10/26/21 at 1711, Until Mon10/29/21 at 1535, Nausea, Routine 0915 (Given - Provider: Leslee Doshi RN)1812 (Given - Provider: Yan Wiseman, LAZARA) 0610 (Given - Provider: Tonya Quiroz RN) simethicone (MYLICON) chewable tablet 80 mg 80 mg, oral, 4 TIMES DAILY PRN, Starting on Mon10/26/21 at 1406, Until Mon10/29/21 at 1535, Flatulence, Cramping, Routine, tranexamic acid (CYKLOKAPRON) injection 1,000 mg 1,000 mg (1 g), intravenous, PRN, 2 doses, Starting on Mon10/26/21 at 0953, Until Mon10/29/21 at 1535, Other, bleeding, Indications: Post- hemorrhage, STAT witch julianne (TUCKS) 50 % pad 1 pad 1 pad, topical, PRN, Starting on Mon10/26/21 at 1202, Until Mon10/29/21 at 1535, Hemorrhoids, itching, Routine, Release No Frequency Medication Order 10/27/2021 10/28/2021 10/29/2021 carboprost (HEMABATE) 250 mcg/mL intramuscular injection 1 dose, Starting on Mon10/26/21 at 0948, Until Mon10/29/21 at 1535 ceFAZolin (ANCEF) syringe 1 dose, Starting on Mon10/26/21 at 0948, Until Mon10/29/21 at 1535 methylergonovine (METHERGINE) 0.2 mg/mL (1 mL) injection 1 dose, Starting on Mon10/26/21 at 0948, Until Mon10/29/21 at 1535 miSOPROStol (CYTOTEC) 200 mcg tablet 1 dose, Starting on Mon10/26/21 at 0949, Until Mon10/29/21 at 1535 Linked Groups Order Group 1: Change IV to Saline Lock (CANCELED) Routine, ONE TIME, On Mon10/26/21 at 1205, For 1 occurrence, Once PO intake tolerated and oxytocin infusion complete., Release And sodium chloride 0.9 % (flush) flush 5 mL (CANCELED)Jump to med 5 mL, intravenous, EVERY 8 HOURS, First dose on Mon10/26/21 at 1600, Until Discontinued, Routine, Release Group 2: oxytocin in lactated ringers 30 units/500 mlJump to med 334 mL/hr, intravenous, CONTINUOUS, Starting on Mon10/26/21 at 1430, Until Mon10/29/21 at 1535, Routine, And oxytocin in lactated ringers 30 units/500 mlJump to med 95 mL/hr, intravenous, CONTINUOUS, Starting on Mon10/26/21 at 1430, Until Mon10/29/21 at 1535, Routine, documented in this encounter Orders Medications Ordered That Say ht Not Have Been Administered Count Last Ordered Date First Ordered Date polyethylene glycol 3350 (MD RALAX) packet 17 g 1 10/27/2021 atropine 0.1 mg/mL syringe 0.5 mg 2 022 calcium carbonate (TUMS) 200 mg calcium (500 mg) per chewable tablet tablet,chewable 2 Tablet 1 10/26/2021 carboprost (HEMABATE) 250 mc g/mL intramuscular injection 1 10/26/2021 ceFAZolin (ANCEF) syringe 1 10/26/2021 dextrose 5% (D5W) with azith romycin (ZITHROMAX) 1 10/26/2021 hydrocortisone 2.5 % cream 1 10/26/2021 lidocaine (PF) 10 mg/mL (1 % ) injection 2 mg 1 10/26/2021 lidocaine 1 % injection 20 mL 1 10/26/2021 methylergonovine (METHERGINE ) 0.2 mg/mL (1 mL) injection 1 10/26/2021 miSOPROStol (CYTOTEC) 200 mcg tablet 1 01/2022 miSOPROStol (CYTOTEC) tablet 200 mcg 1 01/2022 miSOPROStol (CYTOTEC) tablet 800 mcg 1 01/2022 multivitamin vit-ir on fumarate-FA (STUARTNATAL) 27 mg iron- 1 mg tablet 1 Tablet 1 10/26/2021 naloxone (NARCAN) injection 0.2 mg 2 2021 oxytocin in lactated ringers 30 unit/500 mL infusion solution 1 10/26/2021 oxytocin in lactated ringers 30 units/500 ml 2 10/26/2021 tranexamic acid (CYKLOKAPRON ) injection 1,000 mg 1 10/26/2021 witch julianne (TUCKS) 50 % pad 1 pad 1 2021 Diet Count Last Ordered Date First Orde red Date DISCHARGE DIET 1 10/29/2021 Nursing Count Last Ordered Date First Orde red Date ACTIVITY INSTRUCTIONS 1 10/29/2021 BATHING INSTRUCTIONS 2 10/29/2021 WOUND CARE INSTRUCTIONS 1 10/29/2021 Admission Count Last Ordered Date First Orde red Date ADMIT TO INPATIENT 1 10/26/2021 Transfer Count Last Ordered Date First Orde red Date TRANSFER PATIENT 1 10/26/2021 Discharge Count Last Ordered Date First Orde red Date DISCHARGE PATIENT 1 10/29/2021 Legal Count Last Ordered Date First Orde red Date MISCELLANEOUS DISCHARGE INSTRUCTIONS 3 04/2022 documented in this encounter Care Teams Ear Nose Throat Surgeon Relationship Specialty Start Date End Date None, Provider PCP - General 06/25/14 08/06/23 documented as of this encounter
--- OUTSIDE RECORDS SUMMARY | 2024-11-10 02:17 | XMS_ITS | Encounter Summary ---
Author Organization [facility] Address [address] [place] [address] Care Team Providers Care Cooker Meal Name Role Phone None, Provider Primary Care Provider Rach Stacy MD Unavailable Ariana Dill DNP Primary Care Provider [phone] Encounter Details Date Type Department Care Team (Late st Contact Info) Description 07/12/2021 Lab Requisition [facility] - [facility] [address] [place] [address] Sandra Gordon MD [address] [place] [phone] Encounter for supervision of other normal , second trimester; 22 weeks gestation of Social History Tobacco Use [...] 11/18/2024 8:15 EST Office Visit [facility] - Medical Office Building [facility] [address] [place] [address] Julia Terrell PA-C [address] [facility] Medical Office [address], [address] [place] [phone] 11/25/2024 8:00 EST Rehab Therapy Visit [facility] - Medical Office Building [address] [place], [place] [address] Cira Jackson DPT [address] [facility], [facility], [address] [place] [phone] 12/02/2024 8:00 EST Rehab Therapy Visit [facility] - Medical Office Building [address] [place] [address] Cira Jackson DPT [address] [place] [address], [facility], [address] [place] [phone] 12/09/2024 8:00 EST Rehab Therapy Visit [facility] - Medical Office Building [address] [place] [address] Cira Jackson DPT [address] [place] [address], [facility], [address] [place] [phone] 12/16/2024 9:00 EST Rehab Therapy Visit [facility] - Medical Office [address] [address] Cira Jackson DPT [address] [place] [address], [facility], [address] [place] [phone] 12/23/2024 9:00 EST Rehab Therapy Visit [facility] - Medical Office [address] [address] Cira Jackson DPT [address] [place] [address], [facility], [address] [place] [phone] documented as of this encounter Procedures Procedure Name Priority Date/Time Associated Diagnosis Comments BACTERIAL CULTURE, URINE Routine 07/12/2021 16:11 EDT Encounter for supervision of other normal , second trimester 22 weeks gestation of documented in this encounter Results * BACTERIAL CULTURE, URINE (07/12/2021 16:11 EDT) Organism ID Less than 10,000 CFU/ml Usual urogenital tomy. 07/14/2021 8:54 EDT [facility] Urine URINE SPECIMEN COLLECTION, CLEAN CATCH / Unknown 07/12/2021 16:11 EDT 07/12/2021 18:51 EDT us Sandra Gordon MD MICROBIOLOGY - GENERAL ORDERABLES Final Result [facility] [address] [place] [address] documented in this encounter Visit Diagnoses Diagnosis Encounter for supervision of other normal , second trimester 22 weeks gestation of state, incidental documented in this encounter Additional Health Concerns Infection Onset Date Last Indicated Resolved Time R/O COVID 01/11/2024 01/11/2024 01/11/2024 22:3 5 EDT documented as of this encounter Care Teams Cooker Meal Relationship Specialty Start Date End Date None, Provider PCP - General 06/25/14 08/06/23 Ariana Dill DNP [address] [place] [id number] PCP - General 08/07/23 Rach Waddell MD [address] [facility], [facility] [address] [place] [phone] Operational Meteorologist Obstetrics and Gynecology 05/10/23 documented as of this encounter
--- OUTSIDE RECORDS SUMMARY | 2024-11-10 02:17 | XMS_ITS | Encounter Summary ---
Author Organization [facility] Address [address] [place] [address] Care Team Providers Care Mothercraft Nurse Name Role Phone None, Provider Primary Care Provider Unavailabl e Encounter Details Date Type Department Care Team (Latest Contact Info) Description 07/01/2021 10:23 EDT - 07/01/2021 23:59 EDT Hospital Encounter [facility] Obstetrics Services - [facility] [address], [place] [address] screening for malformation using ultrasonics Discharge Disposition: Home or Self Care Social [...] Date of Assessment Author No 11/27/2015 12:00 Camahco Elizabeth RN documented as of this encounter Mental Status * Because of a physical, mental, or emotional condition, do you have serious difficulty concentrating, remembering, or making decisions? (5 years old or older) Answer Entry Date Author No 11/27/2015 12:00 Camacho Elizabeth RN documented in this encounter Medications at Time of Discharge albuterol 90 mcg/actuation inhaler Inhale 2 Puffs as directed every 4 hours. 1 Inhaler 0 08/10/2014 inhalational spacing device (BREATHERITE MDI SPACER) Use with a metered dose inhaler, as directed. May be dispensed with mask as appropriate.. 1 Each 0 08/10/2014 HYDROcodone-acet aminophen (VICODIN) 5-300 mg tablet Take 2 Tabs by mouth daily. 2 documented as of this encounter Discharge Disposition Disposition Code Departure Means Destination Home or Self Care documented in this encounter Plan of Treatment Upcoming Encounters Date Type Department Care Team (Late st Contact Info) Description 11/18/2024 8:15 EST Office Visit [facility] Pelvic Medicine and Reconstructive Surgery - Medical Office [address] [address] Julia Terrell PA-C [address] [place] [address] Medical Office [facility], [address] [phone] 11/25/2024 8:00 EST Rehab Therapy Visit [facility] Rehabilitation Therapy - Medical Office [address] [address] ManuelCira andrews DPT [address] [place] [address], [facility], [address] [place] [phone] 12/02/2024 8:00 EST Rehab Therapy Visit [facility] Rehabilitation Therapy - Medical Office Building [address] [place] [address] Cira Jackson DPT [address] [place] [address], [facility], [address] [place] [phone] 12/09/2024 8:00 EST Rehab Therapy Visit [facility] Rehabilitation Therapy - Medical Office Building [address] [place] [address] Cira Jackson DPT [address] [place] [address], [facility], [address] [place] [phone] 12/16/2024 9:00 EST Rehab Therapy Visit [facility] Rehabilitation Therapy - Medical Office Building [address] [place] [address] Cira Jackson DPT [address] [place] [address], [facility], [address] [place] [phone] 12/23/2024 9:00 EST Rehab Therapy Visit [facility] Rehabilitation Therapy - Medical Office Building [address] [place] [address] Cira Jackson DPT [address] [place] [address], [facility], [address] [place] [phone] documented as of this encounter Procedures Procedure Name Priority Date/Time Associated Diagnosis Comments US OB ROUTINE (GREATER THAN 14 WEEKS) Routine 07/01/2021 11:34 EDT screening for malformation using ultrasonics documented in this encounter Results * US OB ROUTINE (GREATER THAN 14 WEEKS) (07/01/2021 11:34 EDT) Anatomical Region Laterality Modality Pelvis Ultrasound 07/01/2021 10:4 2 EDT Narrative 07/01/2021 11:50 EDT Indication Screening. History ======= General History Height 163 cm Height (ft) ?5 ft Height (in) ?4 in Previous Outcomes ?4 Para ?? 1 Panchal children born (T) ?1 Abortions (A) ??2 Panchal living children (L) ??1 Maternal Assessment Weight 46 kg Weight (lb) ?101 lb Height 163 cm Height (ft) ?5 ft Height (in) ?4 in BMI ?17.34 kg/m?? Number of fetuses: 1. Dating ======= Method of dating: ??based on the LMP LMP on: ?02/06/2021 GA by LMP ??20 w + 5 d NEYDA by LMP : ? 11/13/2021 Stated Dating on: ?04/09/2021 GA at stated dating date 8 w + 3 d GA by stated dating ??20 w + 2 d NEYDA by stated dating: ?11/16/2021 Ultrasound examination on: 07/01/2021 GA by U/S based upon: ??AC, BPD, Femur, HC GA by U/S ??20 w + 5 d NEYDA by U/S: ?11/13/2021 Assigned: ??Dating performed on 07/01/2021 Based on the LMP Assigned GA ?20 w + 5 d Assigned NEYDA: ??11/13/2021 General Evaluation Cardiac activity: Present. FHR 153 bpm. movements: visualized. Presentation: cephalic. Placenta: anterior. Umbilical cord: Cord vessels: 3 vessel cord. Cord insertion: placental insertion: normal. Amniotic fluid: Amount of AF: normal. Biometry Biometry BPD ?49.6 mm 62% 21w 0d Hadlock OFD ?62.3 mm 72% 21w [address] Rd HC 180.2 mm ?41% 20w 3d [place] AC 163.9 mm ?68% 21w 3d Hadlock Femur ??32.2 mm 38% 20w [address] Rd Cerebellum tr ??21.2 mm 46% 20w 6d Ortega CM 5.9 mm ??74% Nicolaides Nuchal fold ?3.65 mm Humerus ?31.3 mm 36% 20w [address] Rd EFW ?377 g Calculated by: Hadlock (QMP-TM-AB-FL) EFW (lb) ?? 0 lb EFW (oz) ?? 13 oz Cephalic index 0.80 ?60% Nicolaides HC / AC ?1.10 ?15% Hadlock FL / BPD ?? 0.65 ?5% Hadlock FL / AC ?0.20 ?3% Hadlock FHR ?153 bpm Head / Face / Neck Family Development Extension Specialist 4.8 mm Anatomy Cranium: ?? normal Lateral ventricles: ?normal Choroid plexus: ?normal Midline falx: ??normal Cavum septi pellucidi: normal Cerebellum: ?normal Cisterna magna: ?normal Lips: ??normal 4-chamber view: ?normal RVOT: ??normal LVOT: ??normal 3-vessel view: normal 8-[id number]-ckefuue view: normal Cord insertion: ?normal Stomach: ?? normal Kidneys: ?? normal Bladder: ?? normal Abdom. wall: ?? normal Cervical spine: ?normal Thoracic spine: ?normal Lumbar spine: ??normal Sacral spine: ??normal Arms: ??normal Legs: ??normal Gender: ?female Wants to know gender: ??yes Maternal Structures Uterus / Cervix Uterus: ?Appears normal Cervix: ?Appears normal Ovaries / Tubes / Adnexa Rt ovary: ??Visualized, normal appearance Rt ovary D1 ?2.3 cm Rt ovary D2 ?2.1 cm Rt ovary D3 ?0.9 cm Rt ovary mean ??1.8 cm Rt ovary vol ?? 2.2 cm cubed Lt ovary: ??Visualized, normal appearance Lt ovary D1 ?1.1 cm Lt ovary D2 ?2.1 cm Lt ovary D3 ?0.6 cm Lt ovary mean ??1.3 cm Lt ovary vol ?? 0.7 cm cubed Method ======== Voluson E10, Transabdominal ultrasound examination. View: Sufficient. Impression [id number] Obstetrical ultrasound with and maternal evaluation This is a panchal gestation. Biometry is consistent with menstrual dating. Anatomy appears normal as noted above; however, ultrasound cannot detect all anomalies. There is trunk and extremity movement noted. The amniotic fluid volume appears normal. Follow-up Follow-up as clinically indicated. DATE OF SERVICE: 07/01/2021 Procedure Note Tonya Ly MD - 07/01/2021 Indication Screening. History ======= General History Height 163 cm Height (ft) 5 ft Height (in) 4 in Previous Outcomes 4 Para 1 Panchal children born (T) 1 Abortions (A) 2 Panchal living children (L) 1 Maternal Assessment Weight 46 kg Weight (lb) 101 lb Height 163 cm Height (ft) 5 ft Height (in) 4 in BMI 17.34 kg/m?? Number of fetuses: 1. Dating ======= Method of dating: based on the LMP LMP on: 02/06/2021 GA by LMP 20 w + 5 d NEYDA by LMP : 11/13/2021 Stated Dating on: 04/09/2021 GA at stated dating date 8 w + 3 d GA by stated dating 20 w + 2 d NEYDA by stated datin11/16/2021 Ultrasound examination on: 07/01/2021 GA by U/S based upon: AC, BPD, Femur, HC GA by U/S 20 w + 5 d NEYDA by U/S: 11/13/2021 Assigned: Dating performed on 07/01/2021 Based on the LMP Assigned GA 20 w + 5 d Assigned NEYDA: 11/13/2021 General Evaluation Cardiac activity: Present. FHR 153 bpm. movements: visualized. Presentation: cephalic. Placenta: anterior. Umbilical cord: Cord vessels: 3 vessel cord. Cord insertion: placentalinsertion: normal. Amniotic fluid: Amount of AF: normal. Biometry Biometry BPD 49.6 mm 62% 21w 0d Hadlock OFD 62.3 mm 72% 21w [address] Rd HC 180.2 mm 41% 20w 3d [place] AC 163.9 mm 68% 21w 3d Hadlock Femur 32.2 mm 38% [address]w [address] Cerebellum tr 21.2 mm 46% 20w 6d Ortega CM 5.9 mm 74% Nicolaides Nuchal fold 3.65 mm Humerus 31.3 mm 36% 20w [address] Rd EFW 377 g Calculated by: Hadlock (GYM-FS-RU-FL) EFW (lb) 0 lb EFW (oz) 13 oz Cephalic index 0.80 60% Nicolaides HC / AC 1.10 15% Hadlock FL / BPD 0.65 5% Hadlock FL / AC 0.20 3% Hadlock FHR 153 bpm Head / Face / Neck Family Development Extension Specialist 4.8 mm Anatomy Cranium: normal Lateral ventricles: normal Choroid plexus: normal Midline falx: normal Cavum septi pellucidi: normal Cerebellum: normal Cisterna magna: normal Lips: normal 4-chamber view: normal RVOT: normal LVOT: normal 3-vessel view: normal 5-tvyskk-emaogzb view: normal Cord insertion: normal Stomach: normal Kidneys: normal Bladder: normal Abdom. wall: normal Cervical spine: normal Thoracic spine: normal Lumbar spine: normal Sacral spine: normal Arms: normal Legs: normal Gender: female Wants to know gender: yes Maternal Structures Uterus / Cervix Uterus: Appears normal Cervix: Appears normal Ovaries / Tubes / Adnexa Rt ovary: Visualized, normal appearance Rt ovary D1 2.3 cm Rt ovary D2 2.1 cm Rt ovary D3 0.9 cm Rt ovary mean 1.8 cm Rt ovary vol 2.2 cm cubed Lt ovary: Visualized, normal appearance Lt ovary D1 1.1 cm Lt ovary D2 2.1 cm Lt ovary D3 0.6 cm Lt ovary mean 1.3 cm Lt ovary vol 0.7 cm cubed Method ======== Voluson E10, Transabdominal ultrasound examination. View: Sufficient. Impression [id number] Obstetrical ultrasound with and maternal evaluation This is a panchal gestation. Biometry is consistent with menstrual dating. Anatomy appears normal asnoted above; however, ultrasound cannot detect all fetalanomalies. There is trunk and extremity movement noted. The amniotic fluidvolume appears normal. Follow-up Follow-up as clinically indicated. DATE OF SERVICE: 07/01/2021 Sandra Gordon MD [facility] US OB ORDERABLES F inal Result documented in this encounter Visit Diagnoses Diagnosis screening for malformation using ultrasonics Encounter for routine screening for malformation using ultrasonics documented in this encounter Care Teams Mothercraft Nurse Relationship Specialty Start Date End Date None, Provider PCP - General 06/25/14 08/06/23 documented as of this encounter
--- OUTSIDE RECORDS SUMMARY | 2024-11-10 02:17 | XMS_ITS | Encounter Summary ---
Author Organization [facility] Address [address] [place] [address] Care Team Providers Care Postal Carrier Name Role Phone None, Provider Primary Care Provider Unavailabl e Reason for Visit * Reason Comments Chronic Pain Encounter Details Date Type Department Care Team (Late st Contact Info) Description 04/18/2022 8:15 EDT Telemedicine [facility] OBGYN Services - [address] [address] Pauline Stark MD [address] [facility], [address] [place] [address] Chronic pelvic pain in female (Primary Dx) Social History Tobacco Use Types [...] documented in this encounter Progress Notes * Pauline Stark MD - 04/18/2022 0815 EDT The visit was conducted over the phone. The concept of ???Telemedicine?? has been described [...] copays, deductible or coinsurance for this service. HPI: Mine Lynn is a 31 y.o. who presents for discussion of pelvic pain 2/2 pelvic fracture and childbirth. Mine has done pelvic PT intermittently which has helped but was hoping to getan rx for loratab when the pain flairs up during her menses. Her pain is significantly better than it was during her first and second and she feels that she has healed very well from the c/s. ROS: ROS Past Medical History Past Surgical History Past Medical History: Diagnosis Date ??? Anxiety, generalized Ativan intermittently during ??? Pelvic floor dysfunction Past Surgical History: Procedure Laterality Date ??? OTHER SURGICAL HISTORY 2007 Excision of periurethral cysts at [facility] Obstetric History Gynecologic History OB History Para Term AB Living 4 2 2 2 2 SAB TAB Ectopic Multiple Live Births 2 0 2 # Outcome Date GA Lbr Kashif/2nd Weight Sex Delivery Anes PTL Lv 4 Term 10/26/21 37w3d 3190 g (7 lb 0.5 oz) F CS-LST DIETER 3 Term 11/26/15 39w6d / 03:07 4142 g (9 lb 2.1 oz) M Vag-Op DIETER 2 TAB 2010 1 TAB 2008 Social History Family History Social History Tobacco Use ??? Smoking status: Never Smoker ??? Smokeless tobacco: Never Used Vaping Use ??? Vaping Use: Never used Substance Use Topics ??? Alcohol use: No Comment: social ??? Drug use: No Problem Relation Name Comments Asthma Mother Hypertension Father Medications Allergies Current Outpatient Medications Medication ??? acetaminophen (TYLENOL) 500 mg tablet ??? albuterol 90 mcg/actuation inhaler ??? docusate sodium (COLACE) 100 mg capsule ??? inhalational spacing device (BREATHERITE MDI SPACER) ??? polyethylene glycol 3350 (MIRALAX) 17 gram packet ??? sertraline (ZOLOFT) 25 mg tablet No current facility-administered medications for this visit. Allergies Allergen Reactions ??? Imitrex [Sumatriptan Succinate] Shortness Of Breath Objective: There were no vitals taken for this visit. Physical Exam Assessment/Plan: Mine Lynn is a 31 y.o. who presents with chronic pelvic pain that has improved. Chronic pelvic pain in female Reviewed indications for narcotic rx as well as risk of dependence and addiction with chronic use. Recommend Mine follow up with the chronic pain clinic. Will let us know if she needs help connecting with them. I spent a total of 15 minutes on the date of this encounter meeting with the patient and reviewing documentation/coordinating care as described in the above note. Pauline Stark MD documented in this encounter Miscellaneous Notes * Assessment & Plan Note - Pauline Stark MD - 04/18/2022 0842 EDT Associated Problem(s): Chronic pelvic pain in female Reviewed indications for narcotic rx as well as risk of dependence and addiction with chronic use. Recommend Nerma follow up with the chronic pain clinic. Will let us know if she needs help connecting with them. documented in this encounter Plan of Treatment Upcoming Encounters Date Type Department Care Team (Late st Contact Info) Description 11/18/2024 8:15 EST Office Visit [facility] Pelvic Medicine and Reconstructive Surgery - Medical Office [facility] [address] [place] [address] Julia Terrell PA-C [address] [place] [address] Medical Office Building, [address] [place] [phone] 11/25/2024 8:00 EST Rehab Therapy Visit [facility] Rehabilitation Therapy - Medical Office Building [address] [place] [address] Cira Jackson DPT [address] [place] [address], [address] [place] [phone] 12/02/2024 8:00 EST Rehab Therapy Visit [facility] Rehabilitation Therapy - Medical Office Building [address] [place] [address] Cira Jackson DPT [address] [place] [address], [address] [place] [phone] 12/09/2024 8:00 EST Rehab Therapy Visit [facility] Rehabilitation Therapy - Medical Office Building [address] [place] [address] Cira Jcakson, KEMALT [address] [place] [address], [facility], [address] [place] [phone] 12/16/2024 9:00 EST Rehab Therapy Visit [facility] Rehabilitation Therapy - Medical Office Building [address] [place] [address] Cira Jackson, ROBERTO [address] [place] [address], [facility], [address] [place] [phone] 12/23/2024 9:00 EST Rehab Therapy Visit [facility] Rehabilitation Therapy - Medical Office [address] [address] Cira Jackson, ROBERTO [address] [place] [address], [facility], [address] [place] [phone] documented as of this encounter Visit Diagnoses Diagnosis Chronic pelvic pain in female- Primary Unspecified symptom associated with female genital organs documented in this encounter Care Teams Postal Carrier Relationship Specialty Start Date End Date None, Provider PCP - General 06/25/14 08/06/23 documented as of this encounter
--- OUTSIDE RECORDS SUMMARY | 2024-11-10 02:17 | XMS_ITS | Encounter Summary ---
Author Organization [facility] Address [address] [place] [address] Care Team Providers Care Evidence Custodian Name Role Phone None, Provider Primary Care Provider Unavailabl e Encounter Details Date Type Department Care Team (Late st Contact Info) Description 10/19/2021 Orders Only [facility] OBGYN [address] [place], [place] [phone] Rach Waddell MD 111 [facility], [facility] [address] [place] [address] Status post primary low transverse section (Primary Dx) Social History Tobacco Use Types [...] Date of Assessment Author No 11/27/2015 12:00 EST Camacho Oneil RN * Are you blind or do [...] Camacho Elizabeth RN documented in this encounter Progress Notes * Rach Waddell MD - 10/19/2021 1109 EST Primary CS for traumatic OVD. documented in this encounter Plan of Treatment Upcoming Encounters Date Type Department Care Team (Late st Contact Info) Description 11/18/2024 8:15 EST Office Visit [facility] Pelvic Medicine and Reconstructive Surgery - Medical Office Building [facility] [address] [place], [place] [phone] Julia Terrell PA-C [address] [facility] Medical Office Building, [address] [place] [phone] 11/25/2024 8:00 EST Rehab Therapy Visit [facility] Rehabilitation Therapy - Medical Office Building [address] [place], [place] [phone] Cira Jackson DPT [address] [facility], [facility], [address] [place] [phone] 12/02/2024 8:00 EST Rehab Therapy Visit [facility] Rehabilitation Therapy - Medical Office Building [address] [place] [address] Cira Jackson, DPT [address] [place] [address], [facility], [address] [place] [phone] 12/09/2024 8:00 EST Rehab Therapy Visit [facility] Rehabilitation Therapy - Medical Office Building [address] [place] [address] Cira Jackson, KEMALT [address] [place] [address], [address] [place] [phone] 12/16/2024 9:00 EST Rehab Therapy Visit [facility] Rehabilitation Therapy - Medical Office Building [address] [place] [address] Cira Jackson, KEMALT [address] [place] [address], [facility], [address] [place] [phone] 12/23/2024 9:00 EST Rehab Therapy Visit [facility] Rehabilitation Therapy - Medical Office Building [address] [place] [address] Cira Jackson, DPT [address] [place] [address], [address] [place] [phone] documented as of this encounter Visit Diagnoses Diagnosis Status post primary low transverse section- Primary Other postprocedural status documented in this encounter Orders Case Request Count Last Ordered Date First Orde red Date CASE REQUEST OPERATING ROOM 1 10/19/2021 documented in this encounter Care Teams Evidence Custodian Relationship Specialty Start Date End Date None, Provider PCP - General 06/25/14 08/06/23 documented as of this encounter
--- OUTSIDE RECORDS SUMMARY | 2024-11-10 02:17 | XMS_ITS | Encounter Summary ---
Author Organization [facility] Address [address] [place] [address] Care Team Providers Care Medical Billing And Coding Specialist Name Role Phone None, Provider Primary Care Provider Rach Stacy MD Unavailable Ariana Dill DNP Primary Care Provider [phone] Encounter Details Date Type Department Care Team (Late st Contact Info) Description 07/12/2021 Lab Requisition [facility] Pathology & Laboratory Medicine - [facility] [address] [place] [address] Sandra Gordon MD [address] [place] [phone] Encounter for supervision of other normal [...] Info) Description 11/18/2024 8:15 EST Office Visit [facility] Pelvic Medicine and Reconstructive Surgery - Medical Office Building [facility] [address] [place] [address] Julia Terrell PA-C [address] [facility] Medical Office Building, [address] [place] [phone] 11/25/2024 8:00 EST Rehab Therapy Visit [facility] Rehabilitation Therapy - Medical Office Building [address] [place], [place] [address] Cira Jackson DPT [address] [facility], [facility], [address] [place] [phone] 12/02/2024 8:00 EST Rehab Therapy Visit [facility] Rehabilitation Therapy - Medical Office Building [address] [place] [address] Cira Jackson DPT [address] [place] [address], [facility], [address] [place] [phone] 12/09/2024 8:00 EST Rehab Therapy Visit [facility] Rehabilitation Therapy - Medical Office Building [address] [place] [address] Cira Jackson DPT [address] [place] [address], [facility], [address] [place] [phone] 12/16/2024 9:00 EST Rehab Therapy Visit [facility] Rehabilitation Therapy - Medical Office [address] [address] Cira Jackson DPT [address] [place] [address], [facility], [address] [place] [phone] 12/23/2024 9:00 EST Rehab Therapy Visit [facility] Rehabilitation [facility] - Medical Office [address] [address] Cira Jackson DPT [address] [place] [address], [facility], [address] [place] [phone] documented as of this encounter Procedures Procedure Name Priority Date/Time Associated Diagnosis Comments UA CHEMICAL ONLY Routine 07/12/2021 16:1 1 EDT Encounter for supervision of other normal , second trimester 22 weeks gestation of documented in this encounter Results * (ABNORMAL) LAB URINE CHEMICAL (DIP) - DOES NOT REFLEX (07/12/2021 16:11 EDT) Color UA Yellow Colorless, Yellow 07/12/2021 19:15 [facility] Clarity UA Hazy(A) Clear 07/12/2021 19:15 [facility] Glucose UA Negative Negative 07/12/2021 19:15 [facility] Bilirubin UA Negative Negative 07/12/2021 19:15 [facility] Ketones UA 2+(A) Negative 07/12/2021 19:15 [facility] Specific [place], Urine 1.023 1.001 - 1.035 07/12/2021 19:15 [facility] Blood UA Negative Negative 07/12/2021 19:15 [facility] pH, UA 6.0 4.6 - 8.0 07/12/2021 19:15 [facility] Protein UA Negative Negative 07/12/2021 19:15 [facility] Urobilinogen UA Normal Normal mg/dL 021 19:15 [facility] Nitrite UA Negative Negative 07/12/2021 19:15 [facility] Leukocyte Esterase UA 1+(A) Negative 07/12/2021 19:15 [facility] Urine URINE SPECIMEN COLLECTION, CLEAN CATCH / Unknown 07/12/2021 16:11 EDT 07/12/2021 18:51 EDT us Sandra Gordon MD URINALYSIS ORDERABLES Final Result [facility] [address] [place] [address] documented in this encounter Visit Diagnoses Diagnosis Encounter for supervision of other normal , second trimester 22 weeks gestation of state, incidental documented in this encounter Additional Health Concerns Infection Onset Date Last Indicated Resolved Time R/O COVID 01/11/2024 01/11/2024 01/11/2024 22:3 5 EDT documented as of this encounter Care Teams Medical Billing And Coding Specialist Relationship Specialty Start Date End Date None, Provider PCP - General 06/25/14 08/06/23 Ariana Dill DNP [address] [place] [address] PCP - General 08/07/23 Rach Waddell MD [address] [facility], [facility] [address] [place] [phone] Customer Training Specialist Obstetrics and Gynecology 05/10/23 documented as of this encounter
--- OUTSIDE RECORDS SUMMARY | 2024-11-10 02:17 | XMS_ITS | Encounter Summary ---
Author Organization [facility] Address [address] [place] [address] Care Team Providers Care Lye Bath Operator Name Role Phone None, Provider Primary Care Provider Rach Stacy MD Unavailable Ariana Dill DNP Primary Care Provider [phone] Encounter Details Date Type Department Care Team (Late st Contact Info) Description 08/09/2021 Lab Requisition [facility] Pathology & Laboratory Medicine - [facility] [address] [place] [address] Sara Ricks, MARIALUISA [address] [facility], [address] [place] [address] 26 weeks gestation of ; Encounter for supervision of other normal , second trimester; Type O blood, Rh negative Social History Tobacco Use Types Packs/Day Years [...] Info) Description 11/18/2024 8:15 EST Office Visit [facility] Pelvic Medicine and Reconstructive Surgery - Medical Office Building [facility] [address] [place] [id number] Julia Terrell PA-C 2 [facility] Medical Office Building, [address] [place] [phone] 11/25/2024 8:00 EST Rehab Therapy Visit [facility] Rehabilitation Therapy - Medical Office Building [address] [place], [place] [address] Cira Jackson DPT [address] [facility], [facility], [address] [place] [phone] 12/02/2024 8:00 EST Rehab Therapy Visit [facility] Rehabilitation Therapy - Medical Office Building [address] [place] [address] Cira Jackson, DPT [address] [place] [address], [facility], [address] [place] [phone] 12/09/2024 8:00 EST Rehab Therapy Visit [facility] Rehabilitation Therapy - Medical Office Building [address] [place] [address] Cira Jackson, KEMALT [address] [place] [address], [facility], [address] [place] [phone] 12/16/2024 9:00 EST Rehab Therapy Visit [facility] Rehabilitation Therapy - Medical Office Building [address] [place] [address] Cira Jackson, DPT [address] [place] [address], [facility], [address] [place] [phone] 12/23/2024 9:00 EST Rehab Therapy Visit [facility] Rehabilitation Therapy - Medical Office Building [address] [place] [address] Cira Jackson, DPT [address] [place] [address], [facility], [address] [place] [phone] documented as of this encounter Procedures Procedure Name Priority Date/Time Associated Diagnosis Comments ANTIBODY SCREEN Today 08/09/2021 11:50 EDT 26 weeks gestation of Encounter for supervision of other normal , second trimester Type O blood, Rh negative documented in this encounter Results * ANTIBODY SCREEN (08/09/2021 11:50 EDT) Antibody Screen Negative 08/09/2021 23:[address] [facility] Specimen Expires: 08/12/2021 @ 23:59 08/09/2021 23:[address] [facility] Blood VENOUS BLOOD / Unknown 08/09/2021 11:50 EDT 08/09/2021 21:23 EDT us [facility]IL[facility] BLOOD BANK TESTS Final Re sult [facility] [address] [facility] [place] [address] documented in this encounter Visit Diagnoses Diagnosis 26 weeks gestation of state, incidental Encounter for supervision of other normal , second trimester Type O blood, Rh negative Other specified conditions influencing health status documented in this encounter Additional Health Concerns Infection Onset Date Last Indicated Resolved Time R/O COVID 01/11/2024 01/11/2024 01/11/2024 22:3 5 EDT documented as of this encounter Care Teams Lye Bath Operator Relationship Specialty Start Date End Date None, Provider PCP - General 06/25/14 08/06/23 Ariana Dill DNP [address] [place] [id number] PCP - General 08/07/23 Rach Waddell MD [address] [facility], [address] [place] [phone] Extruder Operator Helper Obstetrics and Gynecology 05/10/23 documented as of this encounter
--- OUTSIDE RECORDS SUMMARY | 2024-11-10 02:17 | XMS_ITS | Encounter Summary ---
Author Organization [facility] Address [address] [place] [address] Care Team Providers Care Industrial Health Engineer Name Role Phone None, Provider Primary Care Provider Unavailabl e Reason for Visit * Auth/Cert Specialty Diagnoses / Procedures Referred By Contac t Referred To Contact Diagnoses Supervision of other normal Referral ID Status Reason Start Date Expiration Date Visits Re quested Visits Authorized [id number] 1 1 Encounter Details Date Type Department Care Team (Late st Contact Info) Description 10/26/2021 10:00 EST - 10/26/2021 12:14 EST Surgery [facility] [address] [place], [place] [address] Marques Bazzi MD 111 [facility], [facility] [address] [place] [phone] SECTION ONLY [[id number] (CPT??)] Surgery Details Date/Time Status Location OR Service Patient Class Case Class Case Type Trauma Case? 10/26/2021 1000 Posted [facility] OR 01 Obstetrics Inpatient Panel 1 Procedure LRB Anes Op Region Wound Class Comments SECTION ONLY Bilateral Abdomen Class II / Clean Contaminated Surgeon Surgeon Role Service Panel Marques Bazzi MD Primary Obstetrics 1 Dayron Bales MD Fellow Obstetrics 1 documented in this encounter Social History Tobacco Use Types Packs/Day Years [...] Sign Reading Time Taken Comments Blood Pressure 110/58 10/26/2021 1210 EST Pulse - - Temperature 35.4 ??C (95.7 ??F) 10/26/2021 1105 EST Respiratory Rate 16 10/26/2021 1009 EST Oxygen Saturation 99% 10/26/2021 1155 EST Inhaled Oxygen Concentration - - Weight [...] MD - 10/29/2021 1316 EST Department of HOSTAGE NEGOTIATOR Maternal Discharge Summary Information for the patient's : Linda Lynn [[id number]] Linda Lynn Maternal Name: Mine Lynn : [...] underwent pLTCS and delivered a viable female infant. Please see full surgical dictation for additional details. EBL 700cc, no complications. Patient recovered well and was transferred to [place] [address] mother baby unit for care. The patient's [...] 10/19/2021 Added automatically from request for surgery [id number] Allergies: Imitrex [sumatriptan succinate] Medications during current [...] MD You should follow up with your B2B Account Executive See your beauty shop manager in 2 and 6 weeks. Please call [facility] for an appointment. Authorizing Provider: Ashok Salter MD [facility] I certify that this patient is under my care and that I, or another Medicare allowed practitioner (, DO, DUSTY) working with me, had a [id number]-su-apxa encounter with this patient on this date: 10/29/2021 The discharge summary or progress note will provide further details that support the need for the home health services and the plan of care.: Yes Enter the allowed practitioner (, DO, DUSTY) who will provide oversight of this [...] Disposition Code Departure Means Destination Home-Health Care [facility] documented in this encounter Progress Notes * Nadia Marcano, PT - 10/29/2021 1253 EST [facility] Rehabilitation Therapy Acute [facility] Discontinue/Discharge Note Date of Service: [...] to therapy session, After therapy session By: [id number] communication Additional information may be available in [...] cane use- coomode use-family to obtain NADIA MARCANO PT 10/29/2021 12:53 * Sarbjit Escobedo MD [...] PGY-1 Obstetrics and Gynecology 10/29/2021 6:03 Pager: [phone] Cosigned by Joe Chakraborty MD at 10/29/2021 8:15 EST * Nadia Marcano PT - 10/28/2021 1420 EST [facility] Therapy Acute [facility] Initial Evaluation Note Date of [...] Supervision of othernormal The patient lives at [address] [place], [place] [phone] History of Present Illness / Injury Current [...] evaluated (Patient reports [facility] and attended to [...] to therapy session, After therapy session By: [id number] communication ASSESSMENT: The patient presents with a [...] by the physical therapist and/or physical therapist night assistant when medically appropriate Frequency: Times per [...] HCT 34.7 (L) 05/17/2021 13:05 Assessment/Plan: Mine Lnyn is a 30 y.o. POD#1 s/p LTCS [...] Itzel Merida MD Family Medicine PGY1, Page #[phone] 10/28/21, 6:06 Cosigned by Pauline Stark MD at 10/28/2021 8:39 EST Associated attestation - Pauline tSark MD - 10/28/2021 0839 EST Pt seen and examined. Agree with above. POD2 s/p elective pLTCS. Pt pain is still not controlled. IV discontinued this AM. Plan to increase to 6mg of dilaudid. Will also start Zoloft for anxiety and h/o PP depression. Discussed f/u at chronic pain clinic for fdc management of her pelvic pain. * Nadia Marcano, PT - 10/27/2021 1507 EST [facility] Acute [facility] Contact Note Date of Service: 10/27/2021 PT referral received, chart reviewed. Full note to follow after completion of evaluation in a.m. NADIA MARCANO PT 10/27/2021 15:07 * Mackenzie Tao - 10/27/2021 0916 EST Mine Lynn 1990 Supervision of other normal Chart review completed and discussed the plan of care with the direct care RN and/or primary care team. Primary Insurance: [facility] Secondary Insurance: Patient with no apparent Case Management needs at this time. No housing, transportation, insurance,resources concerns identified at this time. Supports in place to achieve a safe post-hospital transition. No identified barriers to accessing necessary care and/or follow-up after discharge. show card writer/Gray Tender will continue to follow patient's progress and [...] first child Subjective: Mine Lynn reports she is doing ok overall. Her [...] 10/26/2021 1340 EST 0940 Patient arrived to R 5 r/o Labor +SROM plan for 0944 [...] HISTORY 2008 Excision of periurethral cysts at [facility] Speeder Operator History Social History Social History Tobacco Use [...] tracing. TOCO: q3-5 mins SSE: deferred SVE: 100/0 Assessment/Problems/Plan: Mine Lynn is a 30 y.o. [...] of Service: 10/26/2021 Surgeon: Marques Bazzi MD Cement Mason Helper: Dayron Bales MD PGY7 Procedure: Primary Low [...] of the procedure. Findings: 1. Viable female born at 1103 with Apgars of 7 [...] correct times two. Thepatient was taken to [place] [address] PACU in stable condition. Dr. Bazzi was present throughout the entire procedure. Estimated blood loss: 700cc IV fluids: 2 L Urine Output: 20 cc Specimens Sent: None Retained Materials: Doan Complications: None Disposition: M7 then B7 Marques Bazzi MD 10/26/2021 11:52 documented in this encounter Miscellaneous Notes * Plan of Care - Angela Blackwell, RN - 10/29/2021 1233 EST Problem: Daily Care Plan Goals Goal: Care Plan Documentation Flowsheets (Taken 10/29/2021 1145) Area of Focus: Discharge Plan Goal This Shift: prepare for d/c D: Stable PP pt. discharged to home/self care. A: Demonstrated/assisted patient to obtain/watch discharge videos via [employer]. Reviewed with patient how to complete certificate. Offered home health referral. Patient given opportunity to ask questions. R: Pt verbalized/demonstrated understanding of teaching, has completed the d/c videos and certificate. Pt home health referral Completed. Patient/Family questions answered and AVS signed/returned. * Note - Glendy Chairez RN - 10/29/2021 1118 EST Images from the original note were not included. [facility] Consult Progress Note Consult Requested By: Patient Requested Reason for Consult: Hx difficult experience Subjective: I would like to supplement with my milk if possible Objective: Date of : Information for the patient's : Linda Lynn [[id number]] 10/26/2021 Time of Delivery: Information for the patient's : Linda Lynn [[id number]] 1103 Type of Delivery: Information for the patient's : Linda Lynn [[id number]] Low Segment Transverse [1059] Weight: 3190 g (7 lb 0.5 oz) Gestational Age: Information for the patient's : StevenpatyBGMine [[id number]] 37 3/7 : Information for the patient's : Linda Lynn [[id number]] 7 Information for the patient's : Linda Lynn [[id number]] 8 GBS: Mother was negative. Anesthesia: Labor analgesia: None Delivery anesthesia: Spinal, Adjunctive analgesia: None Anesthetic complications: None Additional comments: History/ Complications: Primary C/S EBL 700 Maternal Lab: Lab Results Component Value Date HCT 27.3 (L) 10/27/2021 Infant Lab: Information for the patient's : Linda Lynn [[id number]] No results found for: TCB Information for the patient's : Linda Lynn [[id number]] No results found for: TBIL Information for the patient's : Linda Lynn [[id number]] No results found for: CRP History: Older son Fritz (5 yo) was in NICU, difficulty with latching, weight loss. Needed to supplement. Nerma pumped x 1 month. Social History: FOB: Nermin They live in [place]. Mine works in [employer] office. Medical History: Pertinent Maternal History:hx of [...] Information for the patient's : Linda Lynn [[id number]] Breast Milk Identification, oral, PRN lidocaine (PF) 10 mg/mL (1 %) injection 1 mL, subcutaneous, PRN sucrose 24% (TOOTSWEET) solution 0.3 mL, oral, PRN Infant Anatomy: no abnormalities noted Infants Current Weight: Information for the patient's : Linda Lynn [[id number]] 2870 g (6 lb 5.2 oz) Change from Weight: down 7.8 oz since yesterday Information for the patient's : Linda Lynn [[id number]] -10% 24 hour I/O: BF: 12 at breast plus supplementation X3 overnight with similac 53 mLs in past 24H VD: 6 ST: 4 Pumping Observation: Initiated pumping with family. Oriented to hospital pump, which pt had used before. Pumped both sides and able to express 50 mL in 15 minutes at 10% weight loss and given formula supplementation x3 overnight. Family wishes [...] Care - Lili Colin RN - 10/28/2021 0135 EST Data: Patient delivered via csection 2 [...] #2 s/p c/s of a baby girl; [place] Action: Monitor VS, assess, encourage S2S and [...] the original note were not included. [facility] Consult Progress Note Consult Requested By: Patient Requested Reason for Consult: Hx difficult experience Subjective: I feel like things are going well this time Objective: Date of : Information for the patient's : Linda Lynn [[id number]] 10/26/2021 Time of Delivery: Information for the patient's : Linda Lynn [[id number]] 1103 Type of Delivery: Information for the patient's : Linda Lynn [[id number]] Low Segment Transverse [1059] Weight: 3190 g (7 lb 0.5 oz) Gestational Age: Information for the patient's : BG ShaneMine [[id number]] 37 3/7 : Information for the patient's : Linda Lynn [[id number]] 7 Information for the patient's : Linda Lynn [[id number]] 8 GBS: Mother was negative. Anesthesia: Labor analgesia: None Delivery anesthesia: Spinal, Adjunctive analgesia: None Anesthetic complications: None Additional comments: History/ Complications: Primary C/S EBL 700 Maternal Lab: Lab Results Component Value Date HCT 27.3 (L) 10/27/2021 Lab: Information for the patient's : Linda Lynn [[id number]] No results found for: TCB Information for the patient's : Linda Lynn [[id number]] No results found for: TBIL Information for the patient's : Linda Lynn [[id number]] No results found for: CRP History: Older son Fritz (5 yo) was in NICU, difficulty with latching, weight loss. Needed to supplement. Nerma pumped x 1 month. Social History: FOB: Nermin They live in [place]. Mine works in [employer] office. Medical History: Pertinent Maternal History:hx of [...] + Bili 6.1 at 24 HOL Current Medications: Information for the patient's : Linda Lynn [[id number]] Breast Milk Identification, oral, PRN lidocaine (PF) 10 mg/mL (1 %) injection 1 mL, subcutaneous, PRN sucrose 24% (TOOTSWEET) solution 0.3 mL, oral, PRN Infant Anatomy: no abnormalities noted Infants Current Weight: Information for the patient's : Linda Lynn [[id number]] 2920 g (6 lb 7 oz) Change from Weight: Down ~6 oz from yesterday Information for the patient's : Linda Lynn [[id number]] -8% 24 hour I/O: BF: 10 with [...] WISEMAN RN 10/27/2021 22:38 * Note - Vikas-Emily Leos RN - 10/27/2021 1549 EST Images from the original note were not included. [facility] Consult Initial Consult Consult Requested By: Patient Requested Reason for Consult: Hx difficult experience Subjective: Mine states that breast feeding was difficult with her 5 yo son Eitan. She is hoping to breast feed Verito. Baby is already doing well. Objective: Date of : Information for the patient's : Linda Lynn [[id number]] 10/26/2021 Time of Delivery: Information for the patient's : Linda Lynn [[id number]] 1103 Type of Delivery: Information for the patient's : Linda Lynn [[id number]] Low Segment Transverse [1059] Weight: 3190 g (7 lb 0.5 oz) Gestational Age: Information for the patient's : Linda Lynn [[id number]] 37 3/7 : Information for the patient's : BG ShaneMine [[id number]] 7 Information for the patient's : Stevenpaty Linda [[id number]] 8 GBS: Mother was negative. Anesthesia: Labor analgesia: None Delivery anesthesia: Spinal, Adjunctive analgesia: None Anesthetic complications: None Additional comments: History/ Complications: Primary C/S EBL 700 Maternal Lab: Lab Results Component Value Date HCT 27.3 (L) 10/27/2021 Lab: Information for the patient's : StevenLinda newman [[id number]] No results found for: TCB Information for the patient's : Linda Lynn [[id number]] No results found for: TBIL Information for the patient's : Linda Lynn [[id number]] No results found for: CRP History: Older son Eitan (5 yo) was in NICU, difficulty with latching, weight loss. Needed to supplement. Nerma pumped x 1 month. Social History: FOB: Nermin They live in [place]. Mine works in [employer]. Medical History: Pertinent Maternal History:hx of pelvic [...] Information for the patient's : Linda Lynn [[id number]] Breast Milk Identification, oral, PRN lidocaine (PF) 10 mg/mL (1 %) injection 1 mL, subcutaneous, PRN sucrose 24% (TOOTSWEET) solution 0.3 mL, oral, PRN Anatomy: no abnormalities noted Infants Current Weight: Information for the patient's : Linda Lynn [[id number]] 3085 g (6 lb 12.8 oz) Change from Weight: Information for the patient's : Linda Lynn [[id number]] -3% 24 hour I/O: BF: 5 x w/ more attempts VD: 4 ST: 2 Observation: Entered room and introduced self/role. [facility]new [facility] from [facility] Reviewed goals for breast feeding. Assisted Nerma to latch Sussex onto left side (preferred football due to incision). Latched on/off was sleepy. Mine then needed to get up to use [...] Care Plan Documentation 10/27/2021 1454 by Leslee Doshi, RN Outcome: Met This Shift 10/27/2021 0946 by Leslee Doshi, RN Outcome: Ongoing Mom is one day [...] nbn sleeping. We are to get emily ibclc when baby wakes up. Mom is to [...] Care - Leslee Doshi RN - 10/27/2021 0927 EST Problem: Daily Care Plan Goals Goal: [...] moving and to get her doan out. [facility] shift lead did not think she moved well enough [...] Care - Tonya Quiroz RN - 10/27/2021 0521 EST Problem: Daily Care Plan Goals Goal: [...] by Low Segment Transverse . Linda Lynn [id number] at Gestational Age: 37w3d, Delivered by Low Segment Transverse , Weighed 3190 g (7 lb 0.5 oz), 7 /8 , Sent to nursery after delivery. Maternal: Delivery Plan Outcome [...] indication/comments: N/A Sepsis Risk Scores (based on [facility] incidence of 0.02/1000 live births) Calculated Risk [...] Cord Blood Sent: Stem cell collection (by )? No Comments: Lacerations/Episiotomy Laceration Repaired? Perineal: Periurethral: Labial: Sulcus: Vaginal: Cervical: Episiotomy: Indication: Repair suture: Procedures Additional Procedures: None Hemorrhage (if applicable) hemorrhage: None Blood Loss Mother: Mine Lynn #[id number] Start of Mother's Information Delivery Blood Loss 10/26/21 1018 - 10/26/21 1151 EBL Anesthesia 700 mL Total 700 mL End of Mother's Information Mother: Mine Lynn #[id number] Uterotonics/PPH Procedures: Uterine massage, Oxytocin, Blood Products Transfused: (if applicable) Labor Length Duration of 1st Stage: hours minutes Duration of 2nd Stage: hours minutes Duration of 3rd Stage: 0 hours 0 minutes Duration of Cord Clamp Delay: 60 seconds Precipitous Labor (<3 hours): No Prolonged Labor (>20 hours): No Armona: Date of : 10/26/2021 Time of : [...] for additional details. EBL 700cc. No complications. I, Marques Bazzi MD, was present and scrubbed throughout the entire procedure. Marques Bazzi MD documented in this encounter Plan of Treatment Upcoming Encounters Date Type Department Care Team (Late st Contact Info) Description 11/18/2024 8:15 EST Office Visit [facility] Pelvic Medicine and Reconstructive Surgery - Medical Office Building [address] [address] Julia Terrell PA-C [address] [place] [address] Medical Office Building, [address] [place] [phone] 11/25/2024 8:00 EST Rehab Therapy Visit [facility] Rehabilitation Therapy - Medical Office Building [address] [place] [address] Cira Jackson, ROBERTO [address] [place] [address], [facility], [address] [place] [phone] 12/02/2024 8:00 EST Rehab Therapy Visit [facility] Rehabilitation [facility] - Medical Office Building [address] [place] [address] Cira Jackson DPT [address] [place] [address], [facility], [address] [place] [phone] 12/09/2024 8:00 EST Rehab Therapy Visit [facility] Rehabilitation Therapy - Medical Office [address] [address] Cira Jackson DPT [address] [place] [address], [facility], [address] [place] [phone] 12/16/2024 9:00 EST Rehab Therapy Visit [facility] Rehabilitation Therapy - Medical Office Building [address] [place] [address] Cira Jackson DPT [address] [place] [address], [facility], [address] [place] [phone] 12/23/2024 9:00 EST Rehab Therapy Visit [facility] Rehabilitation Therapy - Medical Office Building [address] [place] [address] Cira Jackson DPT [address] [facility], [address] [place] [address] Scheduled Referrals Name Type Priority [...] transverse scar from repeat delivery ZZCOVID-19 TEST [facility] PCR Today 10/26/2021 10:05 EST COVID-19 TESTING Routine 10/26/2021 10:0 5 EST ANTIBODY IDENTIFICATION Today 10/26/19 9:59 EST TYPE AND SCREEN STAT 10/26/2021 9:59 EST COMPLETE BLOOD COUNT STAT 10/26/2021 9:58 EST documented in this encounter Results * (ABNORMAL) COMPLETE BLOOD COUNT (10/27/2021 11:48 EST) WBC 10.09 4.00 - 12.40 K/cmm 10/27/2021 12:29 EST [facility] RBC 3.18(L) 3.86 - 5.04 M/cmm 10/27/2021 12:29 [facility] Hemoglobin 9.1(L) 11.6 - 15.2 gm/dL 10/27/2021 12:29 EST [facility] HCT 27.3(L) 34.9 - 44.4 % 10/27/2021 12:29 [facility] MCV 86 81 - 98 fl 10/27/2021 12:29 [facility] MCH 28.6 26.7 - 33.3 pg 10/27/2021 12:29 [facility] MCHC 33.3 32.1 - 35.9 gm/dL 10/27/2021 12:29 [facility] RDW-CV 14.0 <14.7 % 10/27/2021 12:29 [facility] RDW-SD 43.7 <50.4 fl 10/27/2021 12:29 [facility] PLT 249 141 - 377 K/cmm 10/27/2021 12:29 [facility] MPV 11.0 9.5 - 12.7 fl 10/27/2021 12:29 [facility] Blood VENOUS BLOOD / Unknown Venipuncture / Unknown 10/27/2021 11:48 EST 10/27/2021 12:16 EST us Sarbjit Escobedo MD HEMATOLOGY & PF4 ORDERABLES Milena l Result Performing Organization Address [facility] Co de Phone Number [facility] [address] [place] [address] * SCREEN TEST (10/27/2021 11:48 EST) Screen Test NEGATIVE 10/27/2021 15:08 EST [facility] Blood VENOUS BLOOD / Unknown Venipuncture / Unknown 10/27/2021 11:48 EST 10/27/2021 12:37 EST us Marques Bazzi MD BLOOD BANK TESTS Final Res ult Performing Organization Address City/[facility]/ZIP Co de Phone Number [facility] [address] [place] [address] * POC US ANESTHESIA NERVE BLOCK TAP (10/26/2021 11:36 EST) Narrative 10/26/2021 11:36 EST This is a non-reportable exam. us Tomeka Fuentes MD [facility] POC ORDERABLES Final R esult * COVID-19 TEST [facility] PCR (10/26/2021 10:05 EST) Swab ENTIRE NASOPHARYNX / Unknown Swab / Unknown 10/26/2021 10:05 EST 10/26/2021 10:11 EST us Marques Bazzi MD MICROBIOLOGY - GENERAL ORD ERABLES Final Result [facility] [address] [place] [address] * COVID-19 TESTING (10/26/2021 10:05 EST) Pathologist [facility] [place] COVID-19 rt-PCR Result Negative Negative 10/26/2021 15:06 EST [facility] Comment: This test has not been FDA cleared or approved. This test has been authorized by FDA under an EUA for use by authorized laboratories. This test has been authorized only for detection of nucleic acid from 2019-nCoV, not for any other viruses or pathogens. [...] history, and epidemiological information. Performed on the [employer] Fusion instrument Performing Lab [place] [facility] 10/26/2021 15:06 EST [facility] Swab ENTIRE NASOPHARYNX / Unknown Swab / Unknown 10/26/2021 10:05 EST 10/26/2021 10:11 EST Marques Bazzi MD MICROBIOLOGY - GENERAL ORD ERABLES Final Result Performing Organization Address City/[facility]/ZIP Co de Phone Number [facility] [address] [place] [address] * ANTIBODY IDENTIFICATION (10/26/2021 9:59 EST) Pathologist [facility] [place] Antibody Identification Anti-D; patient recd RhIg 10/26/2021 13:37 EST [facility] Blood VENOUS BLOOD / Unknown Venipuncture / Unknown 10/26/2021 9:59 EST 10/26/2021 10:06 EST us Marques Bazzi MD BLOOD BANK TESTS Final Res ult Performing Organization Address [facility] Co de Phone Number [facility] [address] [place] [address] * TYPE AND SCREEN (10/26/2021 9:59 EST) Pathologist [facility] [place] ABO O 10/26/2021 11:13 [facility] Rh Factor Negative 10/26/2021 11:13 [facility] Antibody Screen Positive 10/26/2021 11:13 [facility] Specimen Expires: 10/29/2021 @ 23:59 10/26/2021 11:13 [facility] Blood VENOUS BLOOD / Unknown Venipuncture / Unknown 10/26/2021 9:59 EST 10/26/2021 10:06 EST us Marques Bazzi MD BLOOD BANK TESTS Edited Re sult - Final Performing Organization Address [facility] Co de Phone Number [facility] [address] [place] [address] * (ABNORMAL) COMPLETE BLOOD COUNT (10/26/2021 9:58 EST) Pathologist [facility] [place] WBC 7.34 4.00 - 12.40 K/cmm 10/26/2021 10:18 [facility] RBC 3.65(L) 3.86 - 5.04 M/cmm 10/26/2021 10:18 [facility] Hemoglobin 10.8(L) 11.6 - 15.2 gm/dL 10/26/2021 10:18 [facility] HCT 32.3(L) 34.9 - 44.4 % 10/26/2021 10:18 [facility] MCV 89 81 - 98 fl 10/26/2021 10:18 [facility] MCH 29.6 26.7 - 33.3 pg 10/26/2021 10:18 [facility] MCHC 33.4 32.1 - 35.9 gm/dL 10/26/2021 10:18 [facility] RDW-CV 13.9 <14.7 % 10/26/2021 10:18 [facility] RDW-SD 44.9 <50.4 fl 10/26/2021 10:18 [facility] PLT 243 141 - 377 K/cmm 10/26/2021 10:18 [facility] MPV 10.7 9.5 - 12.7 fl 10/26/2021 10:18 [facility] Blood VENOUS BLOOD / Unknown Venipuncture / Unknown 10/26/2021 9:58 EST 10/26/2021 10:07 EST us Marques Bazzi MD HEMATOLOGY & PF4 ORDERABLE S Final Result Performing Organization Address City/State/[facility] Co de Phone Number [facility] [address] [place] [address] documented in this encounter Visit Diagnoses Diagnosis [...] mg Given 10/28/2021 8:29 EST 100 mg HYDROmorphone (DILAUDID) tablet 6 mg 6 mg, oral, EVERY 3 HOURS PRN, Starting on Mon10/28/21 at 0842, Until Mon10/29/21 at 1535, Pain, Routine Given 10/29/2021 11:55 EST 6 mg Given 10/29/2021 8:31 EST 6 mg Given 10/29/2021 5:50 EST 6 mg ibuprofen (MOTRIN) tablet 800 mg 800 [...] at 0949, Until Mon10/29/21 at 1535 ondansetron (ZOFRAN-ODT) disintegrating tablet 4 mg 4 [...] Given 10/26/2021 20:29 EST 80 m g Additional Administered Medications Medication Order MAR Action [...] on Mon10/26/21 at 2100, Until Discontinued, Routine, 08 (Given - Provider: Leslee Doshi RN)2024 (Given - Provider: Yan Wiseman, RN) 828 (Given - Provider: Angela Blackwell RN)2032 (Given - Provider: Lili Colin, LAZARA) 08 (Given - Provider: Angela Blackwell, LAZARA) lidocaine 5 % (LIDODERM) patch 1 Patch [...] 25 mg, oral, DAILY, First dose on Renee 10/28/21 at 0900, Until Discontinued, Routine 0928 (Given - Provider: Angela Blackwell, LAZARA) 0832 (Given - Provider: Angela Blackwell RN) [...] Doshi RN) 0013 (Given - Provider: Suni Cavazos, LAZARA)0802 (Not Given - Provider: Angela Blackwell RN [...] Cavazos, LAZARA)0829 (Given - Provider: Angela Blackwell, LAZARA)1716 (Given - Provider: Angela Blackwell, LAZARA) 0145 (Given - Provider: Julieta Bellamy RN)0954 (Given - Provider: Angela Blackwell RN) calcium carbonate (TUMS) 200 mg calcium (500 [...] Leslee Doshi RN)1223 (Given - Provider: Leslee Doshi RN)1609 (Given - Provider: Yan Wiseman RN)202 (Given - Provider: Yan Wiseman RN) HYDROmorphone [...] Colin RN)2333 (Given - Provider: Lili Colin, RN) 0227 (Given - Provider: Lili Colin, RN)0550 (Given - Provider: Eri Davila RN)0831 (Given - Provider: Angela Blackwell, RN)1155 (Given - Provider: Angela Blackwell, RN) HYDROmorphone (PF) (DILAUDID) 0.5 mg/0.5 mL syringe 0.2-0.6 mg (CANCELED) 0.2-0.6 mg, intravenous, EVERY 4 HOURS PRN, Starting on Mon10/26/21 at 1155, Until Renee 10/28/21 at 0844, Pain, Routine 0427 (Given - Provider: Tonya Quiroz, RN)0913 (Given - Provider: Leslee Doshi RN)1322 (Given - Provider: Leslee Doshi RN)1807 (Given - Provider: Yan Wiseman, RN)2215 (Given - Provider: Yan Wiseman, RN) ibuprofen (MOTRIN) tablet 800 mg 800 mg, oral, EVERY 8 HOURS PRN, Starting on Mon10/26/21 at 1202, Until Mon10/29/21 at 1535, Pain, Routine, Release 0616 (Given - Provider: Tonya Quiroz RN)1512 (Given - Provider: Leslee Doshi RN) 0014 (Given - Provider: Suni Cavazos RN)0829 (Given - Provider: Angela Blackwell, RN)1717 (Given - Provider: Angela Blackwell, RN) 0145 (Given - Provider: Julieta Bellamy, LAZARA)0954 (Given - Provider: Angela Blackwell, LAZARA) lansinoh HPA lanolin topical, PRN, Starting on Mon10/26/21 at 1406, Until Mon10/29/21 at 1535, Other, breast feeding, 2215 (Given - Provider: Yan Wisemna, LAZARA) lidocaine (PF) 10 mg/mL (1 %) injection [...] Nausea, Routine 0915 (Given - Provider: Leslee Doshi, RN)1812 (Given - Provider: Yan Wiseman RN) 0610 (Given - Provider: Tonya Quiroz RN) [...] Count Last Ordered Date First Ordered Date lidocaine 5 % (LIDODERM) patch 1 Patch 1 HYDROmorphone (DILAUDID) tablet 6 mg 1 03/2022 sertraline (ZOLOFT) tablet 25 mg 1 10/28/19 22 HYDROmorphone (DILAUDID) tablet 2-4 mg 2 10/26/2021 polyethylene glycol 3350 (MA RALAX) packet 17 g 1 10/27/2021 acetaminophen (TYLENOL) tablet 1,000 mg 1 0 10/26/2021 atropine 0.1 mg/mL syringe 0.5 mg 2 022 calcium carbonate (TUMS) 200 mg calcium (500 mg) per chewable tablet tablet,chewable 2 Tablet 1 10/26/2021 carboprost (HEMABATE) 250 mc g/mL intramuscular injection 1 10/26/2021 ceFAZolin (ANCEF) syringe 1 10/26/2021 dextrose 5% (D5W) with azith romycin (ZITHROMAX) 1 10/26/2021 docusate sodium (COLACE) capsule 100 mg 1 0 10/26/2021 famotidine (PEPCID) 20 mg/2 mL injection 1 10/26/2021 hydrocortisone 2.5 % cream 1 10/26/2021 HYDROmorphone (PF) (DILAUDID ) 0.5 mg/0.5 mL syringe 0.2-0.6 mg 1 10/26/2021 ibuprofen (MOTRIN) tablet 800 mg 10/26/19 lansinoh HPA lanolin 1 10/26/2021 lidocaine (PF) 10 mg/mL (1 % ) injection 2 mg 1 10/26/2021 lidocaine 1 % injection 20 mL 1 10/26/2021 methylergonovine (METHERGINE ) 0.2 mg/mL (1 mL) injection 1 10/26/2021 miSOPROStol (CYTOTEC) 200 mcg tablet 01/2022 miSOPROStol (CYTOTEC) tablet 200 mcg 01/2022 miSOPROStol (CYTOTEC) tablet 800 mcg 01/2022 multivitamin vit-ir on fumarate-FA (STUARTNATAL) 27 mg iron- 1 mg tablet 1 Tablet 1 10/26/2021 naloxone (NARCAN) injection 0.2 mg 2 2021 ondansetron (PF) (ZOFRAN) 4 mg/2 mL injection 1 10/26/2021 ondansetron (ZOFRAN-ODT) dis integrating tablet 4 mg 1 10/26/2021 oxytocin in lactated ringers 30 unit/500 mL infusion solution 1 10/26/2021 oxytocin in lactated ringers 30 units/500 ml 2 10/26/2021 simethicone (MYLICON) chewab le tablet 80 mg 1 10/26/2021 sodium chloride 0.9 % (flush) flush 5 mL 1 10/26/2021 sodium citrate-citric acid ( BICITRA) 500-334 mg/5 mL solution 1 10/26/2021 tranexamic acid (CYKLOKAPRON ) injection 1,000 mg 1 10/26/2021 agus whitaker (AB) 50 % pad 1 pad 1 2021 [...] 04/2022 documented in this encounter Care Teams Industrial Health Engineer Relationship Specialty Start Date End Date None, Provider PCP - General 06/25/14 08/06/23 documented as of this encounter
--- OUTSIDE RECORDS SUMMARY | 2024-11-10 02:17 | XMS_ITS | Encounter Summary ---
Author Organization [facility] Address [address] [place] [address] Care Team Providers Care Relationship Consultant Name Role Phone None, Provider Primary Care Provider Unavailabl e Reason for Visit * Auth/Cert Specialty Diagnoses / Procedures Referred By Contac t Referred To Contact Diagnoses Supervision of other normal Referral ID Status Reason Start Date Expiration Date Visits Re quested Visits Authorized [id number] 1 1 Encounter Details Date Type Department Care Team (Late st Contact Info) Description 10/26/2021 23:59 EST Anesthesia Event [facility] [address] [place] [address] Ramirez Christensen MD Anesthesia Record Procedure Summary Procedure Name Responsible Anesthesiologist Anesthesia Start Time Anesthesia Stop Time LABOR CONSULT Events No events on file. Meds * Agents No agents on file. * Blood No blood administrations on file. Lines, Drains, and Airways No LDAs on file. documented in this encounter Social History Tobacco [...] Camacho Elizabeth RN documented in this encounter OR Notes * Anesthesia Preprocedure Evaluation - Ramirez Christensen MD - 10/26/2021 0941 EST Anesthesia Preprocedure Evaluation Patient Medical History, including Anesthesia History reviewed. Chart and Nursing Notes reviewed, including NPO status and Medication History. Additional ROS/History Findings: - No complications with current - No known pulmonary or cardiac disease, no inhaler use, can climb 2 flights of stairs without stopping - No known kidney or liver disease, no bleeding disorders, no blood thinner use - NKDA - No known personal or family hx of anesthesia complications Allergies Allergen Reactions ??? Imitrex [Sumatriptan Succinate] Shortness Of Breath Patient is now. Past Medical History: Diagnosis Date ??? Anxiety, generalized Ativan intermittently during ??? Pelvic floor dysfunction Relevant Problems No relevant active problems Clinical information reviewed: Physical Exam Airway Mallampati: II TM distance: >3 FB Neck ROM: full Cardiovascular - normal exam Rhythm: regular Rate: normal Dental - normal exam Pulmonary - normal exam Breath sounds clear to auscultation Abdominal - normal exam Anesthesia Plan ASA 2 Anesthesia Type - neuraxial block - via spinal Block for post-op pain? Yes - via TAP/truncal block Anesthesia plan and risks discussed. Informed consent obtained from patient. Use of blood products discussed with patient who consented to blood products. Specific risks discussed were bleeding, headache, incomplete block, myocardial infarction, nerve damage, stroke, infection, nausea and vomiting. Code status discussed? No Informed Consent obtained via Director Data Architecture? Yes Obstetrics patient pre-procedure anesthesia evaluation included a discussion of epidural, spinal, general, and TAP block mode(s) of anesthesia. Risks discussed included: Bleeding, infection, nerve injury, spinal headaches, high spinals, hematomas, and low blood pressures with under-perfusion. The possibilities of inadequate epidural/block, block failure, and possible block replacement were also discussed. All patient's questions were answered to their satisfaction. PAT Note Notes from 09/26/21 through 10/26/21 No notes of this type exist for this encounter. documented in this encounter Plan of Treatment Upcoming Encounters Date Type Department Care Team (Late st Contact Info) Description 11/18/2024 8:15 EST Office Visit [facility] Pelvic Medicine and Reconstructive Surgery - Medical Office [facility] [address] [place], [place] [id number] Julia Terrell PA-C [address] [place] [address] Medical Office Building, [address] [place] [phone] 11/25/2024 8:00 EST Rehab Therapy Visit [facility] Rehabilitation Therapy - Medical Office Building [address] [place] [address] Cira Jackson DPT 2 [facility], [facility], [address] [place] [phone] 12/02/2024 8:00 EST Rehab Therapy Visit [facility] Rehabilitation Therapy - Medical Office Building [address] [place] [address] Cira Jackson, DPT [address] [place] [address], [facility], [address] [place] [phone] 12/09/2024 8:00 EST Rehab Therapy Visit [facility] Rehabilitation Therapy - Medical Office Building [address] [place] [address] Cira Jackson, DPT [address] [place] [address], [facility], [address] [place] [phone] 12/16/2024 9:00 EST Rehab Therapy Visit [facility] Rehabilitation Therapy - Medical Office Building [address] [place] [address] Cira Jackson, DPT [address] [place] [address], [facility], [address] [place] [phone] 12/23/2024 9:00 EST Rehab Therapy Visit [facility] Rehabilitation Therapy - Medical Office Building [address] [place] [address] Cira Jackson, DPT [address] [place] [address], [facility], [address] [place] [phone] documented as of this encounter Visit Diagnoses Not on filedocumented in this encounter Care Teams Relationship Consultant Relationship Specialty Start Date End Date None, Provider PCP - General 06/25/14 08/06/23 documented as of this encounter
--- OUTSIDE RECORDS SUMMARY | 2024-11-10 02:17 | XMS_ITS | Encounter Summary ---
Author Organization [facility] Address [address] [place] [address] Care Team Providers Care Near East Archeology Professor Name Role Phone None, Provider Primary Care Provider Rach Stacy MD Unavailable [phone] Ariana Dill DNP Primary Care Provider [phone] Encounter Details Date Type Department Care Team (Late st Contact Info) Description 07/21/2022 Orders Only [facility] OBGYN Services - [facility] [address] [place], [place] [id number] Rach Waddell MD [address] [facility], [address] [place] [address] Social History Tobacco Use Types [...] 6 hours as needed for up to 7 days for Pain. Daily Max: 8 Tablets 8 Tablet 07/21/2022 2 documented in this encounter Plan of Treatment Upcoming Encounters Date Type Department Care Team (Late st Contact Info) Description 11/18/2024 8:15 EST Office Visit [facility] Pelvic Medicine and Reconstructive Surgery - Medical Office Building [address] [address] Julia Terrell PA-C [address] [place] [address] Medical Office [facility], [address] [phone] 11/25/2024 8:00 EST Rehab Therapy Visit [facility] Rehabilitation Therapy - Medical Office Building [address] [place] [address] Cira Jackson, KEMALT [address] [place] [address], [facility], [address] [place] [phone] 12/02/2024 8:00 EST Rehab Therapy Visit [facility] Rehabilitation Therapy - Medical Office Building [address] [place] [address] Cira Jackson, KEMALT [address] [place] [address], [facility], [address] [place] [phone] 12/09/2024 8:00 EST Rehab Therapy Visit [facility] Rehabilitation Therapy - Medical Office [address] [address] Cira Jackson, KEMALT [address] [place] [address], [facility], [address] [place] [phone] 12/16/2024 9:00 EST Rehab Therapy Visit [facility] Rehabilitation Therapy - Medical Office [address] [address] Cira Jackson, DPT [address] [place] [address], [facility], [address] [place] [phone] 12/23/2024 9:00 EST Rehab Therapy Visit [facility] Rehabilitation Therapy - Medical Office Building [address] [place] [address] Cira Jackson, DPT [address] [place] [address], [facility], [address] [place] [phone] documented as of this encounter Visit Diagnoses Not on filedocumented in this encounter Additional Health Concerns Infection Onset Date Last Indicated Resolved Time R/O COVID 01/11/2024 01/11/2024 01/11/2024 22:3 5 EDT documented as of this encounter Care Teams Near East Archeology Professor Relationship Specialty Start Date End Date None, Provider PCP - General 06/25/14 08/06/23 Ariana Dill DNP [address] [place] [address] PCP - General 08/07/23 Rach Waddell MD [address] [facility], [facility] [address] [place] [phone] Swing Saw Operator Obstetrics and Gynecology 05/10/23 documented as of this encounter
--- OUTSIDE RECORDS SUMMARY | 2024-11-10 02:17 | XMS_ITS | Encounter Summary ---
Author Organization [facility] Address [address] [place] [address] Care Team Providers Care Sales Development Consultant Name Role Phone None, Provider Primary Care Provider Unavailabl e Reason for Visit * Auth/Cert Specialty Diagnoses / Procedures Referred By Contac t Referred To Contact Diagnoses Supervision of other normal Referral ID Status Reason Start Date Expiration Date Visits Re quested Visits Authorized [id number] 1 1 Encounter Details Date Type Department Care Team (Late st Contact Info) Description 10/26/2021 10:19 EST Anesthesia Event [facility] [address] [place] [address] Tomeka Fuentes MD [address] [facility], Level 2 [place] [phone] Ramirez Christensen MD Anesthesia Record Procedure Summary Procedure Name Responsible Anesthesiologist Anesthesia Start Time Anesthesia Stop Time SECTION ONLY (Bilateral: Abdomen) Tomeka Fuentes MD 10/26/21 1019 10/26/21 1230 Events Date Time Event Comment 10/26/2021 1019 An Start The patient was re-evaluated immediately before moderate or deep sedation use, before anesthesia induction, or before the anesthesia procedure. 1020 An Start Data 1058 Anesthesia Ready 1102 Uterine Incision 1103 Baby Delivered 1213 an stop data 1230 Handoff to RN I completed my handoff to the receiving nurse during which we: 1. Identified the patient 2. Identified the responsible provider 3. Reviewed the pertinent medical history 4. Discussed the surgical course 5. Reviewed intra-op anesthesia management and issues during anesthesia 6. Set expectations for post-procedure period 7. Allowed opportunity for questions and acknowledgement of understanding. 1230 An Stop Meds Name Total bupivacaine 0.75%-dextrose 8 .25% PF (SENSORCAINE) intrathecal injection 1.6 mL ePHEDrine pre-filled syringe 10 mg fentanyl citrate (PF) injection 15 mcg oxytocin in lactated ringers 30 units/50 0 ml 28,724 winnie-units phenylephrine pre-made bag 20 mg/250 mL 3,270 mcg lactated ringers (LR) infusion Cannot be calculated ceFAZolin injection 2,000 mg azithromycin (ZITHROMAX) 500 mg in dextr ose 5% (D5W) 250 mL IVPB 500 mg bupivacaine (PF) 0.25 % injection 1 mL oxytocin vial 3 Units ropivacaine (PF) (NAROPIN) 3 0 mL, EPINEPHrine HCl (PF) (ADRENALIN) 0.3 mL in sodium chloride (PF) 30 mL 60 mL ketOROLAC injection 15 mg * Agents Name N2O Air * Blood No blood administrations on file. Lines, Drains, and Airways Type Details Placement Removal Peripheral IV 10/26/21; 1008; 18; B Keller Introcan; Right; Forearm; Inserted by RN; 2; None; Chlorhexidine; 10/28/21; 0758; Therapy completed; No complications 10/26/21 1008 by Christelle Gupta 10/28/21 0758 by Angela Burns, LAZARA Urethral Catheter 10/26/21; 1114; Inse rted by RN; Selected surgical procedures/Epidural; Straight-tip; 16 fr; 10 ml; Yes; 10/27/21; 1130 10/26/21 1114 by Christelle Gupta 10/27/21 1130 by Leslee Deal RN Wound 10/26/21; 1144; Inci belle; Midline, Lower; Abdomen; N; Full thickness; 10/12/24 10/26/21 1144 by Christelle Gupta 10/12/24 0000 by Candida Bhatt RN documented in this encounter Social History Tobacco [...] Evaluation - Ramirez Christensen MD - 10/26/2021 1246 EST Anesthesia Preprocedure Evaluation Patient Medical History, [...] status discussed? No Informed Consent obtained via Senior J2Ee Developer? Yes Obstetrics patient pre-procedure anesthesia evaluation included [...] of this type exist for this encounter. Review of Systems Constitutional: Negative. Negative for fever. HENT: Negative. Eyes: Negative. Respiratory: Negative. Negative for cough and shortness of breath. Cardiovascular: Negative. Negative for chest pain and leg swelling. Gastrointestinal: Negative. Negative for abdominal pain. Musculoskeletal: Negative. Negative for myalgias. Neurological: Negative. Endo/Heme/Allergies: Negative. Psychiatric/Behavioral: Negative. * Anesthesia Postprocedure Evaluation - Ramirez Christensen MD - 10/26/2021 1241 EST Patient: Mine Lynn Vital signs were reviewed with the recovery nurse. Complete vitals history is available in the Epicflowsheets. Vitals Value Taken Time BP 99/79 10/26/21 1225 Temp 10/26/21 1241 Resp 16 10/26/21 1241 Pulse From Oximetry 94 10/26/21 1241 SpO2 100 % 10/26/21 1235 Vitals shown include unvalidated device data. Last Pain Score - Type of Anesthesia - spinal Anesthesia Post Evaluation Post-procedure vitals reviewed and are stable. Level of consciousness: awake and alert and oriented Respiratory status: airway patent, stable and room air Cardiovascular status: stable Hydration status: adequate Nausea/Vomiting: none Pain management: adequate Post-Op Assessment: patient tolerated procedure well with no complications Patient participation: able to participate Disposition: inpatient Anesthesia Complications: No apparent anesthesia complications * Anesthesia Procedure Notes - Ramirez Christensen MD - 10/26/2021 1210 EST Associated Order(s): Peripheral Block - Single Shot Peripheral Block - Single Shot Patient location during procedure: OR Start time: 10/26/2021 11:55 End time: 10/26/2021 12:09 Staffing Performed: resident/AIR TURNING MACHINE FEEDER/AA Anesthesiologist: Tomeka Fuentes MD Resident/AIR TURNING MACHINE FEEDER: Ramirez Christensen MD Preanesthetic Checklist Completed: patient identified, IV checked, risks and benefits discussed, surgical consent, monitorsand equipment checked, pre-op evaluation and timeout performed Peripheral Block Patient position: supine Prep: ChloraPrep, skin prep agent completely dried prior to procedure, sterile gloves, mask used and subcutaneous lidocaine Patient monitoring: BP cuff, heart rate and continuous pulse ox Block type: TAP Laterality: bilateral Injection technique: single-shot Guidance: ultrasound guided Needle Needle type: Newton Needle gauge: 20 G Needle length: 100 mm Needle localization: ultrasound guidance Test dose: negative Assessment Injection assessment: negative aspiration for heme, no paresthesia on injection, incremental injection and local visualized surrounding nerve on ultrasound Paresthesia pain: none Heart rate change: no Slow fractionated injection: yes Ultrasound Equipment Machine used: [employer] ([facility]) sterile probe cover Probe did NOT contact body fluids/brokenskin. Standard cleaning with recommended disinfectant Additional Notes 30 mL each side tap block Reason for block: at surgeon's request, for post-op pain management * Anesthesia Procedure Notes - Ramirez Christensen MD - 10/26/2021 1123 EST Associated Order(s): Spinal Block Spinal Block Patient location during procedure: OR Start time: 10/26/2021 10:35 End time: 10/26/2021 10:53 Staffing Performed: resident/AIR TURNING MACHINE FEEDER/AA Resident/AIR TURNING MACHINE FEEDER: Ramirez Christensen MD Preanesthetic Checklist Completed: patient identified, IV checked, risks and benefits discussed, surgical consent, monitorsand equipment checked, pre-op evaluation and timeout performed Spinal Block Patient position: sitting Prep: ChloraPrep, site prepped and draped, skin prep agent completely dried prior to procedure, sterile gloves, mask used and subcutaneous lidocaine Patient monitoring: heart rate, continuous pulse ox and BP cuff Approach: midline Location: L4-5 Injection technique: single-shot Needle Needle type: Kory Needle gauge: 25 G Needle length: 3.5 in Assessment Sensory level: T2 Events: no paresthesia Additional Notes Positive initial sustained aspiration of CSF prior to injection of heavy bupivicaine. Negative sustained aspiration after injection. Advanced spinal needle slightly, obtained positive aspiration, injected 1cc of 0.25% Bupivicaine, and had positive aspiration after final injection. Reason for block: surgical anesthesia documented in this encounter Plan of Treatment Upcoming Encounters Date Type Department Care Team (Late st Contact Info) Description 11/18/2024 8:15 EST Office Visit [facility] Pelvic Medicine and Reconstructive Surgery - Medical Office Building [address] [address] Julia Terrell PA-C [address] [facility] Medical Office [facility], [address] [phone] 11/25/2024 8:00 EST Rehab Therapy Visit [facility] Rehabilitation Therapy - Medical Office Building [address] [place] [address] Cira Jackson, KEMALT [address] [place] [address], [facility], [address] [place] [phone] 12/02/2024 8:00 EST Rehab Therapy Visit [facility] Rehabilitation Therapy - Medical Office Building [address] [place] [address] Cira Jackson, KEMALT [address] [place] [address], [facility], [address] [place] [phone] 12/09/2024 8:00 EST Rehab Therapy Visit [facility] Rehabilitation Therapy - Medical Office Building [address] [place] [address] Cira Jackson, KEMALT [address] [place] [address], [facility], [address] [place] [phone] 12/16/2024 9:00 EST Rehab Therapy Visit [facility] Rehabilitation Therapy - Medical Office Building [address] [place] [address] Cira Jackson, DPT [address] [place] [address], [facility], [address] [place] [phone] 12/23/2024 9:00 EST Rehab Therapy Visit [facility] Rehabilitation Therapy - Medical Office Building [address] [place] [address] Cira Jackson, DPT [address] [place] [address], [facility], [address] [place] [phone] documented as of this encounter Procedures Procedure Name Priority Date/Time Associated Diagnosis Comments ANESTHESIA PERIPHERAL BLOCK - SINGLE SHOT Routine 10/26/2021 12:10 EST ANESTHESIA SPINAL BLOCK Routine 10/26/2021 11:23 EST documented in this encounter Results * Peripheral Block - Single Shot (10/26/2021 12:10 EST) Narrative Ramirez Christensen MD - 10/26/2021 12:10 EST Ramirez Christensen MD ? 10/26/2021 12:12 Peripheral Block - Single Shot Patient location during procedure: OR Start time: 10/26/2021 11:55 End time: 10/26/2021 12:09 Staffing Performed: resident/AIR TURNING MACHINE FEEDER/AA Anesthesiologist: Tomeka Fuetnes MD Resident/AIR TURNING MACHINE FEEDER: Ramirez Christensen MD Preanesthetic Checklist Completed: patient identified, IV checked, risks and benefits discussed, surgical consent, monitors and equipment checked, pre-op evaluation and timeout performed Peripheral Block Patient position: supine Prep: ChloraPrep, skin prep agent completely dried prior to procedure, sterile gloves, mask used and subcutaneous lidocaine Patient monitoring: BP cuff, heart rate and continuous pulse ox Block type: TAP Laterality: bilateral Injection technique: single-shot Guidance: ultrasound guided Needle Needle type: Pajunk Needle gauge: 20 G Needle length: 100 mm Needle localization: ultrasound guidance Test dose: negative Assessment Injection assessment: negative aspiration for heme, no paresthesia on injection, incremental injection and local visualized surrounding nerve on ultrasound Paresthesia pain: none Heart rate change: no Slow fractionated injection: yes Ultrasound Equipment Machine used: [employer] ([facility] sterile probe cover Probe did NOT contact body fluids/broken skin. Standard cleaning with recommended disinfectant Additional Notes 30 mL each side tap block Reason for block: at surgeon's request, for post-op pain management us Tomeka Fuentes MD ANESTHESIA ORDERABLES Final R esult * Spinal Block (10/26/2021 11:23 EST) Narrative Ramirez Christensen MD - 10/26/2021 11:23 EST Ramirez Christensen MD ? 10/26/2021 11:28 Spinal Block Patient location during procedure: OR Start time: 10/26/2021 10:35 End time: 10/26/2021 10:53 Staffing Performed: resident/AIR TURNING MACHINE FEEDER/AA Resident/AIR TURNING MACHINE FEEDER: Ramirez Christensen MD Preanesthetic Checklist Completed: patient identified, IV checked, risks and benefits discussed, surgical consent, monitors and equipment checked, pre-op evaluation and timeout performed Spinal Block Patient position: sitting Prep: ChloraPrep, site prepped and draped, skin prep agent completely dried prior to procedure, sterile gloves, mask used and subcutaneous lidocaine Patient monitoring: heart rate, continuous pulse ox and BP cuff Approach: midline Location: L4-5 Injection technique: single-shot Needle Needle type: Kory Needle gauge: 25 G Needle length: 3.5 in Assessment Sensory level: T2 Events: no paresthesia Additional Notes Positive initial sustained aspiration of CSF prior to injection of heavy bupivicaine. ??Negative sustained aspiration after injection. ??Advanced spinal needle slightly, obtained positive aspiration, injected 1cc of 0.25% Bupivicaine, and had positive aspiration after final injection. Reason for block: surgical anesthesia us Tomeka Fuentes MD ANESTHESIA ORDERABLES Final R esult documented in this encounter Visit Diagnoses Not on filedocumented in this encounter Administered Medications Inactive Administered Medications - up to 3 most recent administrations Medication Order MAR Action Action Date Dose Rate Site azithromycin (ZITHROMAX) 500 mg in dextrose 5% (D5W) 250 mL IVPB intravenous, Administer over 60 Minutes, FA IP EQF CONTINUOUS PRN FOR ONE STEP MEDS, Starting on Mon10/26/21 at 1057, Until Mon10/26/21 at 1240, Routine, Anesthesia Intraprocedure New Bag 10/26/2021 10:57 EST 500 mg bupivacaine (PF) (MARCAINE) 0.25 % (2.5 mg/mL) injection intrathecal, PRN, Starting on Mon10/26/21 at 1053, Until Tu10/26/21 at 1240, Routine, Anesthesia Intraprocedure Given 10/26/2021 10:53 EST 1 mL bupivacaine 0.75% in dextrose 8.25% (intrathecal) PF (SENSORCAINE) 0.75 % (7.5 mg/mL) injection intrathecal, PRN, Starting on Mon10/26/21 at 1052, Until Mon10/26/21 at 1240, Routine, Anesthesia Intraprocedure Given 10/26/2021 10:52 EST 1.6 mL ceFAZolin (ANCEF) injection intravenous, PRN, Starting on Mon10/26/21 at 1058, Until Mon10/26/21 at 1240, Routine, Anesthesia Intraprocedure Given 10/26/2021 10:58 EST 2,000 mg ePHEDrine injection 25 mg/5 mL syringe intravenous, PRN, Starting on Mon10/26/21 at 1057, Until Mon10/26/21 at 1240, Routine, Anesthesia Intraprocedure Given 10/26/2021 10:57 EST 10 mg fentaNYL citrate (PF) injection intrathecal, PRN, Starting on Mon10/26/21 at 1052, Until Mon10/26/21 at 1240, Routine, Anesthesia Intraprocedure Given 10/26/2021 10:52 EST 15 mcg ketOROLAC (TORADOL) injection intravenous, PRN, Starting on Mon10/26/21 at 1157, Until Mon10/26/21 at 1240, Routine, Anesthesia Intraprocedure Given 10/26/2021 11:57 EST 15 mg lactated ringers (LR) infusion intravenous, FA IP EQF CONTINUOUS PRN FOR ONE STEP MEDS, Starting on Mon10/26/21 at 1019, Until Mon10/26/21 at 1240, Routine, Anesthesia Intraprocedure New Bag 10/26/2021 10:19 EST oxytocin (PITOCIN) injection intravenous, PRN, Starting on Mon10/26/21 at 1104, Until Mon10/26/21 at 1240, Routine, Anesthesia Intraprocedure Given 10/26/2021 11:04 EST 3 Units oxytocin in lactated ringers 30 units/500 ml intravenous, FA IP EQF CONTINUOUS PRN FOR ONE STEP MEDS, Starting on Mon10/26/21 at 1104, Until Mon10/26/21 at 1240, Routine, Anesthesia Intraprocedure New Bag 10/26/2021 11:04 EST 334 winnie-units/min 334 mL/hr phenylephrine HCl in 0.9% NaCl (NEO_SYNEPHRINE) 20 mg/250 mL (80 mcg/mL) infusion solution intravenous, FA IP EQF CONTINUOUS PRN FOR ONE STEP MEDS, Starting on Mon10/26/21 at 1054, Until Mon10/26/21 at 1240, Routine, Anesthesia Intraprocedure Rate Change 10/26/2021 12:05 EST 10 mcg/min 7.5 mL/hr Rate Change 10/26/2021 11:43 EST 30 mcg/min 22.5 mL/hr Rate Change 10/26/2021 11:03 EST 50 mcg/min 37.5 mL/hr ropivacaine (PF) (NAROPIN) 30 mL, EPINEPHrine HCl (PF) (ADRENALIN) 0.3 mL in sodium chloride (PF) 30 mL epidural, FA IP EQF CONTINUOUS PRN FOR ONE STEP MEDS, Starting on Mon10/26/21 at 1209, Until Mon10/26/21 at 1240, Routine, Anesthesia Intraprocedure New Bag 10/26/2021 12:09 EST 60 mL documented in this encounter Care Teams Sales Development Consultant Relationship Specialty Start Date End Date None, Provider PCP - General 06/25/14 08/06/23 documented as of this encounter
--- OUTSIDE RECORDS SUMMARY | 2024-11-10 02:17 | XMS_ITS | Encounter Summary ---
Author Organization [facility] Address [address] [place] [address] Care Team Providers Care Charge Master Analyst Name Role Phone None, Provider Primary Care Provider Unavailabl e Encounter Details Date Type Department Care Team (Late st Contact Info) Description 01/06/2022 Orders Only [facility] [address] [address] Kaylie Carmichael Social History Tobacco Use Types Packs/Day Years [...] Info) Description 11/18/2024 8:15 EST Office Visit [facility] Pelvic Medicine and Reconstructive Surgery - Medical Office [address] [phone] Julia Terrell PA-C [address] [place] [address] Office [facility], [address] [phone] 11/25/2024 8:00 EST Rehab Therapy Visit [facility] Rehabilitation Therapy - Medical Office [address] [address] Cira Jackson DPT [address] [place] [address], [address] [place] [phone] 12/02/2024 8:00 EST Rehab Therapy Visit [facility] Rehabilitation Therapy - Medical Office Building [address] [place] [id number] Cira Jackson DPT [address] [place] [address], [address] [place] [phone] 12/09/2024 8:00 EST Rehab Therapy Visit [facility] Rehabilitation Therapy - Medical Office Building 2 [place] [address] Cira Jackson, DPT [address] [place] [address], [facility], [address] [place] [phone] 12/16/2024 9:00 EST Rehab Therapy Visit [facility] Rehabilitation Therapy - Medical Office Building [address] [place] [address], [place] [address] Cira Jackson, DPT [address] [place] [address], [facility], [address] [place] [phone] 12/23/2024 9:00 EST Rehab Therapy Visit [facility] Rehabilitation Therapy - Medical Office Building [address] [place] [address] Cira Jackson, DPT [address] [place] [address], [facility], [address] [place] [phone] documented as of this encounter Visit Diagnoses Not on filedocumented in this encounter Discontinued Medications Medication Sig Discontinue Reason Start Date End Da te HYDROmorphone (DILAUDID) 2 mg tablet Take 3 Tablets by mouth every 3 hours as needed for Pain. Daily Max: 48 mg Therapy completed 10/29/2021 01/06/2022 documented as of this encounter Care Teams Charge Master Analyst Relationship Specialty Start Date End Date None, Provider PCP - General 06/25/14 08/06/23 documented as of this encounter
--- OUTSIDE RECORDS SUMMARY | 2024-11-10 02:17 | XMS_ITS | Encounter Summary ---
Author Organization [facility] Address [address] [place] [address] Care Team Providers Care Janitor Custodian Name Role Phone None, Provider Primary Care Provider Unavailabl e Reason for Visit * Reason Onset Date Comments Referral Request 11/09/2021 Encounter Details Date Type Department Care Team (Late st Contact Info) Description 11/09/2021 Telephone [facility] OBGYN Services - [facility] [address] [place] [address] AleishaJt johnston MD [address] [facility], [address] [place] [address] Referral Request Social History Tobacco Use Types Packs/Day Years [...] encounter Miscellaneous Notes * Telephone Encounter - Kath Tim RN - 11/09/2021 1353 EST TC from ENMA Ruiz, with [facility], confirms that pt is still under their care, next appt on 11/11. They will f/u with pt and need for PT. * Telephone Encounter - Kath Tim RN - 11/09/2021 1334 EST Called [facility], pt's LEAD SOFTWARE TESTER, LM on VM making them aware that HH is having difficulty contacting pt, they will not try to reach out to pt again. Asked if there was any way that this office could help, wanted to make them aware. * Telephone Encounter - Tressa Gonzalessay - 11/09/2021 1248 EST Mindi calling from home health [facility] to patient - did receive the referral for in home physical therapy but they have not been able to contact the patient. At this time they are going to close thereferral. documented in this encounter Plan of Treatment Upcoming Encounters Date Type Department Care Team (Late st Contact Info) Description 11/18/2024 8:15 EST Office Visit [facility] Pelvic Medicine and Reconstructive Surgery - Medical Office [facility] [address] [place] [phone] Julia Terrell PA-C [address] [place] [address] Medical Office [facility], [address] [place] [phone] 11/25/2024 8:00 EST Rehab Therapy Visit [facility] Rehabilitation Therapy - Medical Office Building [address] [place] [address] Cira Jackson DPT [address] [place] [address] [address] [place] [phone] 12/02/2024 8:00 EST Rehab Therapy Visit [facility] Rehabilitation Therapy - Medical Office Building [address] [place] [phone] Cira Jackson DPT [address] [place] [address] [address] [place] [phone] 12/09/2024 8:00 EST Rehab Therapy Visit [facility] Rehabilitation Therapy - Medical Office Building [address] [place] [phone] Cira Jackson DPT [address] [place] [address], [facility], [address] [place] [phone] 12/16/2024 9:00 EST Rehab Therapy Visit [facility] Therapy - Medical Office Building [address] [place], [place] [address] Cira Jackson DPT [address] [place] [address], [facility], [address] [place] [phone] 12/23/2024 9:00 EST Rehab Therapy Visit [facility] - Medical Office Building [address] [place], [place] [address] Cira Jackson DPT [address] [place] [address], [facility], [address] [place] [phone] documented as of this encounter Visit Diagnoses Not on filedocumented in this encounter Care Teams Janitor Custodian Relationship Specialty Start Date End Date None, Provider PCP - General 06/25/14 08/06/23 documented as of this encounter
--- OUTSIDE RECORDS SUMMARY | 2024-11-10 02:17 | XMS_ITS | Encounter Summary ---
Author Organization [facility] Address [address] [place] [address] Care Team Providers Care Paint Striping Machine Operator Name Role Phone None, Provider Primary Care Provider Rach Stacy MD Unavailable Ariana Dill DNP Primary Care Provider [phone] Encounter Details Date Type Department Care Team (Late st Contact Info) Description 08/09/2021 Lab Requisition [facility] Pathology & Laboratory Medicine - [facility] [address] [place] [address] Sara Ricks, MARIALUISA 111 [facility], Level 4 [place] [address] 26 weeks gestation of ; Encounter for [...] Description 11/18/2024 8:15 EST Office Visit [facility] Pelvic Medicine and Reconstructive Surgery - Medical Office Building [facility] [address] [place] [address] [phone] Julia Terrell PA-C 2 [facility] Medical Office Building, [address] [place] [phone] 11/25/2024 8:00 EST Rehab Therapy Visit [facility] Rehabilitation Therapy - Medical Office Building [address] [place], [place] 8[address] Cira Jackson DPT 792 [facility], [facility], [address] [place] [phone] 12/02/2024 8:00 EST Rehab Therapy Visit [facility] Rehabilitation Therapy - Medical Office Building [address] [place] [address] Cira Jackson, KEMALT [address] [place] [address], [facility], [address] [place] [phone] 12/09/2024 8:00 EST Rehab Therapy Visit [facility] Rehabilitation Therapy - Medical Office Building [address] [place] [address] Cira Jackson, KEMALT [address] [place] [address], [facility], [address] [place] [phone] 12/16/2024 9:00 EST Rehab Therapy Visit [facility] Rehabilitation Therapy - Medical Office Building [address] [place] [address] Cira Jackson, KEMALT [address] [place] [address], [facility], [address] [place] [phone] 12/23/2024 9:00 EST Rehab Therapy Visit [facility] Rehabilitation Therapy - Medical Office Building [address] [place] [address] Cira Jackson, DPT [address] [place] [address], [facility], [address] [place] [phone] documented as of this encounter Procedures Procedure Name Priority Date/Time Associated Diagnosis Comments GLUCOSE-1HR GESTATIONAL SCREEN Today 08/09/2021 11:50 EDT 26 weeks gestation of [ICD-10-CM] Encounter for supervision of other normal , second trimester [ICD-10-CM] Type O blood, Rh negative [ICD-10-CM] HGB Today 08/09/2021 11:50 EDT 26 weeks gestation of [ICD-10-CM] Encounter for supervision of other normal , second trimester [ICD-10-CM] Type O blood, Rh negative [ICD-10-CM] documented in this encounter Results * GLUCOSE-1HR GESTATIONAL SCREEN (08/09/2021 11:50 EDT) Glucose-1hr Gest Scn 85 50 - 134 mg/dL 08/09/2021 19:26 EDT [facility] Glucose Dose 50 grams 08/09/2021 19:26 EDT [facility] Blood VENOUS BLOOD / Unknown 08/09/2021 11:50 EDT 08/09/2021 18:59 EDT Sara Ricks KNIFE FINISHER PACKAGES & DNA PROBE ORDE RABLES Final Result [facility] [address] [place] [address] * (ABNORMAL) HGB (08/09/2021 11:50 EDT) Hemoglobin 10.5(L) 11.6 - 15.2 gm/dL 08/09/2021 19:09 EDT [facility] Blood VENOUS BLOOD / Unknown 08/09/2021 11:50 EDT 08/09/2021 18:59 EDT Sara Ricks KNIFE FINISHER HEMATOLOGY & PF4 ORDERABL ES Final Result [facility] [address] [place] [address] documented in this encounter Visit Diagnoses Diagnosis 26 weeks gestation of state, incidental Encounter for supervision of other normal , second trimester Type O blood, Rh negative Other specified conditions influencing health status documented in this encounter Additional Health Concerns Infection Onset Date Last Indicated Resolved Time R/O COVID 01/11/2024 01/11/2024 01/11/2024 22:3 5 EDT documented as of this encounter Care Teams Paint Striping Machine Operator Relationship Specialty Start Date End Date None, Provider PCP - General 06/25/14 08/06/23 Ariana Dill DNP [address] [place] [address] PCP - General 08/07/23 Rach Waddell MD [address] [place] [address], [address] [place] [phone] Prenatal Nurse Obstetrics and Gynecology 05/10/23 documented as of this encounter
--- OUTSIDE RECORDS SUMMARY | 2024-11-10 02:17 | XMS_ITS | Encounter Summary ---
Author Organization [facility] Address [address] [place] [address] Care Team Providers Care Vat Overhauler Name Role Phone None, Provider Primary Care Provider Unavailabl e Encounter Details Date Type Department Care Team (Latest Contact Info) Description 10/25/2021 Travel Social History Tobacco Use Types Packs/Day [...] Info) Description 11/18/2024 8:15 EST Office Visit [facility] Pelvic Medicine and Reconstructive Surgery - Medical Office Building [facility] [address] [place] [address] [phone] Julia Terrell PA-C [address] [place] [address] Medical Office Building, [address] [place] [phone] 11/25/2024 8:00 EST Rehab Therapy Visit [facility] Rehabilitation Therapy - Medical Office Building [address] [place] [address] Cira Jackson DPT [address] [place] [address], [address] [place] [phone] 12/02/2024 8:00 EST Rehab Therapy Visit [facility] Rehabilitation Therapy - Medical Office Building [address] [place] [phone] Cira Jackson DPT [address] [place] [address], [address] [place] [phone] 12/09/2024 8:00 EST Rehab Therapy Visit [facility] Rehabilitation Therapy - Medical Office Building [address] [place] [address] Cira Jackson, DPT [address] [place] [address], [facility], [place], [address] [place] [phone] 12/16/2024 9:00 EST Rehab Therapy Visit [facility] Rehabilitation Therapy - Medical Office Building [address] [place] [address] Cira Jackson, KEMALT [address] [place] [address], [facility], [place], [address] [place] [phone] 12/23/2024 9:00 EST Rehab Therapy Visit [facility] Rehabilitation Therapy - Medical Office Building [address] [place] [address] Cira Jackson, DPT [address] [place] [address], [facility], [place], [address] [place] [phone] documented as of this encounter Visit Diagnoses Not on filedocumented in this encounter Care Teams Vat Overhauler Relationship Specialty Start Date End Date None, Provider PCP - General 06/25/14 08/06/23 documented as of this encounter
--- OUTSIDE RECORDS SUMMARY | 2024-11-10 02:18 | XMS_ITS | Encounter Summary ---
Author Organization [facility] Address [address] [place] [address] Care Team Providers Care Print Line Inspector Name Role Phone None, Provider Primary Care Provider Unavailabl e Encounter Details Date Type Department Care Team (Late st Contact Info) Description 05/31/2017 10:11 EDT - 05/31/2017 10:12 EDT Hospital Encounter [address] [address] Sandra Gordon MD [address] [place] [phone] Discharge Disposition: Home or Self Care Social History Tobacco Use Types Packs/Day Years Used Date Smoking Tobacco: Never Smokeless Tobacco: Never Alcohol Use Standard Drinks/Week Comments No 0 (1 standard drink = 0.6 oz pur e alcohol) Comments No Sex and Gender Information Value [...] Elizabeth RN documented in this encounter Discharge Diagnoses Diagnosis R32 Unspecified urinary incontinence-R32[ICD-10-CM] documented in this encounter Medications at Time of Discharge albuterol 90 mcg/actuation inhaler Inhale 2 Puffs as directed every 4 hours. 1 Inhaler 0 08/10/2014 inhalational spacing device (BREATHERITE MDI SPACER) Use with a metered dose inhaler, as directed. May be dispensed with mask as appropriate.. 1 Each 0 08/10/2014 acetaminophen (TYLENOL) 500 mg tablet Take 2 Tabs by mouth every 6 hours 11/29/2015 7 cyclobenzaprine (FLEXERIL) 5 mg tablet Take 1-2 Tabs by mouth 3 times daily as needed for Muscle Spasms. 20 Tab 02/09/2017 7 ibuprofen (MOTRIN) 600 mg tablet Take 1 Tab by mouth every 6 hours 30 Tab 2 11/29/2015 7 multivitamin vit-iron fumarate-FA (STUARTNATAL) 27 mg iron- 1 mg tablet tablet Take 1 Tab by mouth daily. Reported on 02/09/2017 7 documented as of this encounter Discharge Disposition Disposition Code Departure Means Destination Home or Self Care documented in this encounter Plan of Treatment Upcoming Encounters Date Type Department Care Team (Late st Contact Info) Description 11/18/2024 8:15 EST Office Visit [facility] Pelvic Medicine and Reconstructive Surgery - Medical Office Building [facility] [address] [place] [address] Julia Terrell PA-C 2 [facility] Medical Office Building, [address] [place] [phone] 11/25/2024 8:00 EST Rehab Therapy Visit [facility] Rehabilitation Therapy - Medical Office Building [address] [place] [address] Cira Jackson DPT [address] [place] [address], [facility], [address] [place] [phone] 12/02/2024 8:00 EST Rehab Therapy Visit [facility] Rehabilitation Therapy - Medical Office Building [address] [place] [address] Cira Jackson DPT [address] [place] [address], [facility], [address] [place] [phone] 12/09/2024 8:00 EST Rehab Therapy Visit [facility] Rehabilitation Therapy - Medical Office Building [address] [place] [address] Cira Jackson DPT [address] [place] [address], [facility], [address] [place] [phone] 12/16/2024 9:00 EST Rehab Therapy Visit [facility] Rehabilitation Therapy - Medical Office Building [address] [place] [address] Cira Jackson DPT [address] [place] [address], [facility], [address] [place] [phone] 12/23/2024 9:00 EST Rehab Therapy Visit [facility] Rehabilitation Therapy - Medical Office Building [address] [place] [address] Cira Jackson, DPTunde 792 [facility], [address] [place] [phone] documented as of this encounter Visit Diagnoses Not on filedocumented in this encounter Care Teams Print Line Inspector Relationship Specialty Start Date End Date None, Provider PCP - General 06/25/14 08/06/23 documented as of this encounter
--- OUTSIDE RECORDS SUMMARY | 2024-11-10 02:18 | XMS_ITS | Encounter Summary ---
Author Organization [facility] Address [address] [place] [address] Care Team Providers Care Desktop Architect Name Role Phone None, Provider Primary Care Provider Unavailabl e Encounter Details Date Type Department Care Team (Latest Contact Info) Description 09/07/2015 15:05 EST - 09/07/2015 15:06 EST Hospital Encounter [address] [address] Julia Hall NP Discharge Disposition: Home or Self Care Social History Tobacco Use Types Packs/Day Years Used Date Smoking Tobacco: Never Alcohol Use Standard Drinks/Week Comments Yes 2.5 (1 standard drink = 0.6 oz p ure alcohol) Comments Unknown Sex and Gender Information Value Date Recorded Sex Assigned at Female 09/29/2024 12:29 EST Legal Sex Female 18:46 EST Gender Identity Female 12/16/2022 9:04 EST Sexual Orientation Not on file documented as of this encounter Discharge Diagnoses Diagnosis Z3A.28 28 weeks gestation of -Z3A.28[ICD-10-CM] Z36 Encounter for screening of mother-Z36[ICD-10-CM] Z34.80 Encounter for supervision of other normal , unspecified trimester-Z34.80[ICD-10-CM] documented in this encounter Medications at Time of Discharge albuterol 90 mcg/actuation inhaler Inhale 2 Puffs as directed every 4 hours. 1 Inhaler 0 08/10/2014 inhalational spacing device (BREATHERITE MDI SPACER) Use with a metered dose inhaler, as directed. May be dispensed with mask as appropriate.. 1 Each 0 08/10/2014 DIAZepam (VALIUM) 2 mg tablet Take 1-2 Tabs by mouth every 8 hours as needed (for spasm). 20 Tab 0 06/25/2014 6 guaiFENesin (ROBITUSSIN) 100 mg/5 mL liquid Take 200 mg by mouth every 4 hours. 6 guaifenesin-code ine (GUAIFENESIN AC) 100-10 mg/5 mL liquid Take 5 mL by mouth at bedtime as needed for Cough. 120 mL 0 08/10/2014 6 ibuprofen (MOTRIN) 200 mg tablet Take 600 mg by mouth every 6 hours. 6 PSEUDOEPHEDRINE HCL (SUDAFED 12 HOUR ORAL) Take by mouth. 6 documented as of this encounter Discharge Disposition Disposition Code Departure Means Destination Home or Self Care documented in this encounter Plan of Treatment Upcoming Encounters Date Type Department Care Team (Late st Contact Info) Description 11/18/2024 8:15 EST Office Visit [facility] Pelvic Medicine and Reconstructive Surgery - Medical Office Building [facility] [address] [place] [address] Julia Terrell PA-C [address] [place] [address] Office Building, [address] [place] [phone] 11/25/2024 8:00 EST Rehab Therapy Visit [facility] Rehabilitation Therapy - Medical Office Building [address] [place] [address] Cira Jackson DPT [address] [place] [address], [address] [place] [phone] 12/02/2024 8:00 EST Rehab Therapy Visit [facility] Rehabilitation Therapy - Medical Office Building [address] [place] [address] Cira Jackson DPT [address] [place] [address], [address] [place] [phone] 12/09/2024 8:00 EST Rehab Therapy Visit [facility] Rehabilitation Therapy - Medical Office Building [address] [place] [address] Cira Jackson, DPT 2 [facility], [facility], [address] [place] [phone] 12/16/2024 9:00 EST Rehab Therapy Visit [facility] Rehabilitation Therapy - Medical Office Building [address] [place] [address] Cira Jackson, DPT 2 [facility], [facility], [address] [place] [phone] 12/23/2024 9:00 EST Rehab Therapy Visit [facility] Rehabilitation Therapy - Medical Office Building [address] [place] [address] Cira Jackson, DPT [address] [place] [address], [facility], [address] [place] [phone] documented as of this encounter Visit Diagnoses Not on filedocumented in this encounter Care Teams Desktop Architect Relationship Specialty Start Date End Date None, Provider PCP - General 06/25/14 08/06/23 documented as of this encounter
--- OUTSIDE RECORDS SUMMARY | 2024-11-10 02:18 | XMS_ITS | Encounter Summary ---
Author Organization [facility] Address [address] [place] [address] Care Team Providers Care Storage Battery Inspector Name Role Phone Unknown, Provider MD Primary Care Provider Unava ilable Encounter Details Date Type Department Care Team (Late st Contact Info) Description 10/21/[address] [facility] Laboratory Services - [facility] ([facility] [address] [place] [address] Anabel Ingram MD [address] [place] [phone] Social History Tobacco Use Types Packs/Day Years Used Date Smoking Tobacco: Never Assessed Comments Unknown Sex and Gender Information Value Date Recorded Sex Assigned at Female 09/29/2024 12:29 EST Legal Sex Female 18:46 EST Gender Identity Female 12/16/2022 9:04 EST Sexual Orientation Not on file documented as of this encounter Plan of Treatment Upcoming Encounters Date Type Department Care Team (Late st Contact Info) Description 11/18/2024 8:[address] [facility] Pelvic Medicine and Reconstructive Surgery - Medical Office Building [facility] [address] [place] [phone] Julia Terrell PA-C 792 [facility] Medical Office Building, [address] [place] [phone] 11/25/2024 8:00 EST Rehab Therapy Visit [facility] Rehabilitation Therapy - Medical Office Building [address] [place] [address] Cira Jackson DPT [address] [place] [address], [facility], [address] [place] [phone] 12/02/2024 8:00 EST Rehab Therapy Visit [facility] Rehabilitation Therapy - Medical Office Building [address] [place] [address] Cira Jackson, DPT [address] [place] [address], [facility], [address] [place] [phone] 12/09/2024 8:00 EST Rehab Therapy Visit [facility] Rehabilitation Therapy - Medical Office [address] [address] Cira Jackson DPT [address] [place] [address], [facility], [address] [place] [phone] 12/16/2024 9:00 EST Rehab Therapy Visit [facility] Rehabilitation Therapy - Medical Office [address] [address] Cira Jackson DPT [address] [place] [address], [facility], [address] [place] [phone] 12/23/2024 9:00 EST Rehab Therapy Visit [facility] Rehabilitation Therapy - Medical Office Building [address] [place] [address] Cira Jackson, DPT [address] [place] [address], [facility], [address] [place] [phone] documented as of this encounter Procedures Procedure Name Priority Date/Time Associated Diagnosis Comments PAP TEST- RESULT ONLY Routine 10/21/2011 0:00 EST documented in this encounter Results * PAP TEST- RESULT ONLY (10/21/2011 0:00 EST) Pathology Report: CYTOPATHOLOGY REPORT Reports generated via electronic interface contain original data; however they are lacking the format of the original report. Caution should be taken when reading/interpreti ng unformatted reports. Name: ? DENIAGOYOYE ? Accession #: ? [id number] : ? 1990 (Age: 20) ??F ?Collect Date: ? 10/21/2011 Location: ? [facility] ? Receive Date: ? 10/26/2011 Provider: ?ANABEL INGRAM MD Copy to: ? Specimen/Source: ?Pap Test, Cervix/Endocervix, ThinPrep Imaging System with manual evaluation Last Menstrual Period: ? Hormonal/Contracep tive Status: ? Yes: Levora ? SPECIMEN ADEQUACY ? Satisfactory for Evaluation - transformation zone component present - scant squamous epithelial component secondary to excessive blood GENERAL CATEGORIZATION ? Negative for Intraepithelial Lesion or Malignancy INTERPRETATION ? Reactive cellular changes associated with inflammation present (includes repair). ? Document reviewed and electronically signed by: ? GARY JONES MD ? Report Date: ??11/02/2011 13:54 End of Report LEXI PALOMINO 10/21/2011 10/26/2011 us Anabel Ingram MD PATHOLOGY ORDERABLES Final Resul t Performing Organization Address City/State/[facility] Co de Phone Number [facility] [address] [place] [address] documented in this encounter Visit Diagnoses Not on filedocumented in this encounter Care Teams Storage Battery Inspector Relationship Specialty Start Date End Date Unknown, Provider, PCP - General 06/08/09 06/24/14 documented as of this encounter
--- OUTSIDE RECORDS SUMMARY | 2024-11-10 02:18 | XMS_ITS | Encounter Summary ---
Author Organization [facility] Address [address] [place] [address] Care Team Providers Care Auditor Supervisor Name Role Phone None, Provider Primary Care Provider Unavailabl e Encounter Details Date Type Department Care Team (Latest Contact Info) Description 09/14/2015 7:54 EST - 09/14/2015 23:59 EST Hospital Encounter [facility] [address] [place] [address] Unknown, Provider, Julia Dallas, MARIALUISA Discharge Disposition: Auto Discharge Social History Tobacco Use Types Packs/Day Years [...] on file documented as of this encounter Medications at Time of Discharge [...] Discharge Disposition Disposition Code Departure Means Destination Auto Discharge Home documented in this encounter Plan of Treatment Upcoming Encounters Date Type Department Care Team (Late st Contact Info) Description 11/18/2024 8:15 EST Office Visit [facility] Pelvic Medicine and Reconstructive Surgery - Medical Office [address] [address] Julia Terrell PA-C [address] [place] [address] Medical Office [facility], [address] [place] [phone] 11/25/2024 8:00 EST Rehab Therapy Visit [facility] Rehabilitation Therapy - Medical Office Building [address] [place] [address] Cira Jackson DPT [address] [place] [address] [address] [place] [phone] 12/02/2024 8:00 EST Rehab Therapy Visit [facility] Rehabilitation Therapy - Medical Office Building [address] [place] [address] Cira Jackson DPT [address] [place] [address] [address] [place] [phone] 12/09/2024 8:00 EST Rehab Therapy Visit [facility] Rehabilitation Therapy - Medical Office Building [address] [place] [address] Cira Jackson DPT [address] [place] [address], [facility], [address] [place] [phone] 12/16/2024 9:00 EST Rehab Therapy Visit [facility] Rehabilitation Therapy - Medical Office Building [address] [place] [address] Cira Jackson DPT [address] [place] [address], [facility], [address] [place] [phone] 12/23/2024 9:00 EST Rehab Therapy Visit [facility] Rehabilitation Therapy - Medical Office Building [address] [place] [address] Cira Jackson DPT [address] [place] [address], [facility], [address] [place] [phone] documented as of this encounter Procedures Procedure Name Priority Date/Time Associated Diagnosis Comments GLUCOSE TOLERANCE, 3HR GESTATIONAL Routine 09/14/2015 8:00 EST documented in this encounter Results * GLUCOSE TOLERANCE, 3HR GESTATIONAL (09/14/2015 8:00 EST) Glucose Dose 100 g 09/14/2015 7:58 [facility] Glucose Josue, Fasting 76 50 - 95 mg/dl 09/14/2015 12:02 [facility] Glucose Josue, 1 hr 162 50 - 180 mg/dl 09/14/2015 12:02 [facility] Glucose Josue, 2hr 138 50 - 155 mg/dl 09/14/2015 12:02 [facility] Gest Gluc Josue, 3hr 98 50 - 140 mg/dl 09/14/2015 12:03 [facility] Comment: The diagnosis of diabetes is made if two or more of the glucose values exceed the reference range listed. BLOOD SPECIMEN / Unknown 09/14/2015 8:00 EST 09/14/2015 11:35 EST us Julia Hall ROUTE SERVICE REPRESENTATIVE PACKAGES & DNA PROBE ORDERABLE S Final Result [facility] [address] [place] [address] documented in this encounter Visit Diagnoses Not on filedocumented in this encounter Care Teams Auditor Supervisor Relationship Specialty Start Date End Date None, Provider PCP - General 06/25/14 08/06/23 documented as of this encounter
--- OUTSIDE RECORDS SUMMARY | 2024-11-10 02:18 | XMS_ITS | Encounter Summary ---
Author Organization [facility] Address [address] [place] [address] Care Team Providers Care Communications Assistant Name Role Phone None, Provider Primary Care Provider Unavailabl e Encounter Details Date Type Department Care Team (Late st Contact Info) Description 04/20/2015 Results Only [facility]- PRISM [phone] Joe Chakraborty MD [address] [facility], [address] [place] [phone] Social History Tobacco Use Types Packs/Day Years [...] Info) Description 11/18/2024 8:15 EST Office Visit [facility] Pelvic Medicine and Reconstructive Surgery - Medical Office Building [place] [address] [place] [address] Julia Terrell PA-C [address] [place] [address] Medical Office Building, [address] [place] [phone] 11/25/2024 8:00 EST Rehab Therapy Visit [facility] Rehabilitation Therapy - Medical Office Building [address] [place] [address] Cira Jackson, DPT [address] [place] [address], [facility], [address] [place] [phone] 12/02/2024 8:00 EST Rehab Therapy Visit [facility] Rehabilitation Therapy - Medical Office Building [address] [place] [address] Cira Jakcson, KEMALT [address] [place] [address], [facility], [address] [place] [phone] 12/09/2024 8:00 EST Rehab Therapy Visit [facility] Rehabilitation Therapy - Medical Office [address] [address] Cira Jackson, DPT [address] [place] [address], [facility], [address] [place] [phone] 12/16/2024 9:00 EST Rehab Therapy Visit [facility] Rehabilitation Therapy - Medical Office [address] [address] Cira Jackson, DPT [address] [place] [address], [facility], [address] [place] [phone] 12/23/2024 9:00 EST Rehab Therapy Visit [facility] Rehabilitation Therapy - Medical Office Building [address] [place] [address] Cira Jackson, DPT [address] [place] [address], [facility], [address] [place] [phone] documented as of this encounter Procedures Procedure Name Priority Date/Time Associated Diagnosis Comments PROFILE Routine 04/20/2015 11:0 6 EDT URINALYSIS WITH MICROSCOPIC IF POSITIVE Routine 04/20/2015 11:06 EDT UA REFLEX Routine 04/20/2015 11:06 EDT CHLAMYDIA/N. GONORRHOEAE AMPLIFIED NUCLEIC ACID Routine 04/20/2015 11:06 EDT BACTERIAL CULTURE, URINE Routine 04/20/2015 11:06 EDT VARICELLA IGG ANTIBODY Routine 04/20/2015 11:06 EDT HIV 1/2 ANTIGEN AND ANTIBODY, 4TH GENERATION Routine 04/20/2015 11:06 EDT documented in this encounter Results * UA REFLEX (04/20/2015 11:06 EDT) UA Billing Microscopic not indicated. 04/20/2015 18:28 EDT [facility] URINE / Unknown 04/20/2015 1 1:06 EDT 04/20/2015 17:49 EDT us Joe Chakraborty MD URINALYSIS ORDERABLES Milena sedrick Result [facility] [address] [place] [address] * CHLAMYDIA/GC AMPLIFIED (04/20/2015 11:06 EDT) Chlamydia Result No Chlamydia trachomatis DNA detected by rn international mediated amplification. 04/21/2015 13:24 EDT [facility] GC Result No Neisseria gonorrhoeae DNA detected by rn international mediated amplification. 04/21/2015 13:24 EDT [facility] ENDOCERVICAL STRUCTURE / Unknown 04/20/2015 11:06 EDT 04/20/2015 18:00 EDT us Joe Chakraborty MD MICROBIOLOGY - GENERAL ORD ERABLES Final Result Performing Organization Address City/[facility]/ZIP Co de Phone Number [facility] [address] [place] [address] * BACTERIAL CULTURE, URINE (04/20/2015 11:06 EDT) Result Less than 10,000 CFU/ml Usual urogenital tomy. 04/22/2015 8:18 EDT [facility] URINE / Unknown 04/20/2015 1 1:06 EDT 04/20/2015 17:49 EDT Joe Chakraborty MD MICROBIOLOGY - GENERAL ORD ERABLES Final Result Performing Organization Address [facility] de Phone Number [facility] [address] [place] [address] * (ABNORMAL) URINALYSIS (04/20/2015 11:06 EDT) Color, UA Yellow 04/20/2015 18:28 T [facility] Clarity, UA Cloudy 04/20/2015 18:28 T [facility] Glucose, UA Neg Neg 04/20/2015 18:28 [facility] Bilirubin, UA Neg Neg 04/20/2015 18:28 [facility] Ketones, UA 2+(A) Neg 04/20/2015 18:28 [facility] Specific [place], Urine >1.030 1.001 - 1.035 04/20/2015 18:28 T [facility] Blood, UA Neg Neg 04/20/2015 18:28 T [facility] pH, UA 5.5 4.6 - 8.0 04/20/2015 18:28 [facility] Protein, UA Trace(A) Neg 04/20/2015 18:28 [facility] Urobilinogen, UA 0.2 0.2 - 1.0 E.U./dl 04/20/2015 18:28 EDT [facility] Nitrite, UA Neg Neg 04/20/2015 18:28 EDT [facility] Leuk Esterase Neg Neg 04/20/2015 18:28 T [facility] Refractometer SG,Urine 1.029 1.001 - 1.035 04/20/2015 18:28 EDT [facility] URINE / Unknown 04/20/2015 1 1:06 EDT 04/20/2015 17:49 EDT Joe Chakraborty MD URINALYSIS ORDERABLES Milena l Result Performing Organization Address City/[facility]/ZIP Co de Phone Number [facility] [address] [place] [address] * VARICELLA IGG ANTIBODY (04/20/2015 11:06 EDT) Varicella IgG Ab Positive 04/21/2015 13:34 EDT [facility] Comment: Presence of detectable Varicella Zoster virus IgG antibodies. BLOOD SPECIMEN / Unknown 04/20/2015 11:06 EDT 04/20/2015 17:49 EDT Joe Chakraborty MD IMMUNOLOGY AND SEROLOGY OR DERABLES Final Result Performing Organization Address City/[facility] Co de Phone Number [facility] [address] [place] [address] * (ABNORMAL) PROFILE (04/20/2015 11:06 EDT) ABO and Rh Type O NEG 5 18:43 EDT [facility] Antibody Screen Neg 5 18:43 EDT [facility] Rubella IgG Ab Positive 04/21/2015 10:26 T [facility] Comment: Positive results suggest immunity to Rubella infection. WBC 8.79 4.0 - 12.4 K/cmm 04/20/2015 17:56 EDT [facility] RBC 4.51 3.86 - 5.04 M/cmm 04/20/2015 17:56 EDT [facility] Hemoglobin 14.1 11.6 - 15.2 gm/dl 04/20/2015 17:56 [facility] HCT 42.4 34.9 - 44.4 % 04/20/2015 17:56 [facility] MCV 94 81 - 98 fl 04/20/2015 17:56 [facility] MCH 31.3 26.7 - 33.3 pg 04/20/2015 17:56 [facility] MCHC 33.2 32.1 - 35.9 gm/dl 04/20/2015 17:56 [facility] RDW-CV 12.6 11.7 - 14.6 % 04/20/2015 17:56 [facility] RDW-SD 40.7 37.6 - 50.3 fl 04/20/2015 17:56 [facility] PLT 264 141 - 320 K/cmm 04/20/2015 17:56 [facility] MPV 9.4 7.5 - 11.2 fl 04/20/2015 17:56 [facility] Hepatitis B Surface Ag Negative 04/21/2015 10:26 [facility] Comment:Reference Range: Neg ative % Neutrophils 72.1 45.5 - 79.7 % 04/20/2015 17:56 [facility] % Lymphocytes 22.1 15.0 - 46.8 % 04/20/2015 17:56 [facility] % Monocytes 5.1 1.8 - 12.0 % 04/20/2015 17:56 [facility] % Eosinophils 0.4(L) 0.6 - 6.9 % 04/20/2015 17:56 [facility] % Basophils 0.3 0.2 - 1.4 % 04/20/2015 17:56 [facility] ABS Neutrophils 6.34 2.20 - 8.85 K/cmm 04/20/2015 17:56 [facility] ABS Lymphs 1.95 1.09 - 3.30 K/cmm 04/20/2015 17:56 [facility] ABS Monocytes 0.45 0.1 - 0.8 K/cmm 04/20/2015 17:56 EDT [facility] ABS Eosinophils 0.03 0.03 - 0.61 K/[facility] 04/20/2015 17:56 EDT [facility] ABS Basophils 0.03 0.01 - 0.11 K/[facility] 04/20/2015 17:56 EDT [facility] Type of Diff: Automated 04/20/2015 17:56 EDT [facility] Syphilis Serology Negative 04/21/2015 13:35 EDT [facility] Comment:Reference Range: Neg ative BLOOD SPECIMEN / Unknown 04/20/2015 11:06 EDT 04/20/2015 17:49 EDT us Joe Chakraborty MD PACKAGES & DNA PROBE ORDER JANI Final Result Performing Organization Address [facility] Co de Phone Number [facility] [address] [place] [address] * HIV 1/2 ANTIBODY (04/20/2015 11:06 EDT) HIV 1/2 Antibody Negative 04/21/20 15 10:26 EDT [facility] Comment: If acute HIV-1 infection is suspected in a high risk patient, submit plasma specimen for HIV-1 RNA quantification test. Reference Range: ??Negative Assayed utilizing [employer] chemiluminescent technology. BLOOD SPECIMEN / Unknown 04/20/2015 11:06 EDT 04/20/2015 17:49 EDT us Joe Chakraborty MD IMMUNOLOGY AND SEROLOGY OR DERABLES Final Result Performing Organization Address City/[facility] Co de Phone Number [facility] [address] [place] [address] documented in this encounter Visit Diagnoses Not on filedocumented in this encounter Care Teams Communications Assistant Relationship Specialty Start Date End Date None, Provider PCP - General 06/25/14 08/06/23 documented as of this encounter
--- OUTSIDE RECORDS SUMMARY | 2024-11-10 02:18 | XMS_ITS | Encounter Summary ---
Author Organization [facility] Address [address] [place] [address] Care Team Providers Care Flight Engineer Name Role Phone None, Provider Primary Care Provider Unavailabl e Encounter Details Date Type Department Care Team (Latest Contact Info) Description 11/30/2015 18:25 EST - 12/02/2015 17:12 EST Hospital Encounter [facility] M[facility] [address] [place] [address] Unknown, Provider, MD Discharge Disposition: Home or Self Care Social History Tobacco Use Types Packs/Day Years Used Date Smoking Tobacco: Never Smokeless Tobacco: Never Alcohol Use Standard Drinks/Week Comments Yes 2.5 (1 standard drink = 0.6 oz p ure alcohol) Comments No Sex and Gender Information Value Date Recorded Sex Assigned at Female 09/29/2024 12:29 EST Legal Sex Female 18:46 EST Gender Identity Female 12/16/2022 9:04 EST Sexual Orientation Not on file documented as of this encounter Functional Status * Are you deaf or do you have serious difficulty hearing? Answer Date of Assessment Author No 11/27/2015 12:00 Camacho Elizaebth RN * Are you blind or do [...] by mouth every 6 hours 11/29/2015 7 docusate sodium (COLACE) 100 mg capsule Take 1 Cap by mouth 2 times daily as needed for Constipation 11/28/2015 7 HYDROmorphone (DILAUDID) 2 mg tablet Take 1 Tab by mouth every 4 hours Daily Max: 12 mg 5 Tab 0 11/29/2015 7 HYDROmorphone (DILAUDID) 2 mg tablet Take 1 Tab by mouth every 4 hours as needed for Pain Daily Max: 12 mg 15 Tab 0 11/29/2015 7 ibuprofen (MOTRIN) 600 mg tablet Take [...] 11/18/2024 8:15 EST Office Visit [facility] Pelvic Medicine and Reconstructive Surgery - Medical Office Building [facility] [address] [place] [address] Julia Terrell PA-C [address] [facility] Medical Office Building, [address] [place] [phone] 11/25/2024 8:00 EST Rehab Therapy Visit [facility] Rehabilitation Therapy - Medical Office Building [address] [place] [address] Cira Jackson DPT [address] [place] [address], [address] [place] [phone] 12/02/2024 8:00 EST Rehab Therapy Visit [facility] Rehabilitation Therapy - Medical Office Building [address] [place] [address] Cira Jackson DPT [address] [place] [address], [address] [place] [phone] 12/09/2024 8:00 EST Rehab Therapy Visit [facility] Rehabilitation Therapy - Medical Office Building [address] [place] [address] Cira Jackson DPT [address] [place] [address], [address] [place] [phone] 12/16/2024 9:00 EST Rehab Therapy Visit [facility] Rehabilitation Therapy - Medical Office Building [address] [place] [address] Cira Jackson DPT [address] [place] [address], [address] [place] [phone] 12/23/2024 9:00 EST Rehab Therapy Visit [facility] Rehabilitation Therapy - Medical Office Building [address] [place], [place] [phone] Cira Jackson, DPT [address] [facility], [address] [place] [phone] documented as of this encounter Visit Diagnoses Not on filedocumented in this encounter Care Teams Flight Engineer Relationship Specialty Start Date End Date None, Provider PCP - General 06/25/14 08/06/23 documented as of this encounter
--- OUTSIDE RECORDS SUMMARY | 2024-11-10 02:18 | XMS_ITS | Encounter Summary ---
Author Organization [facility] Address [address] [place] [address] Care Team Providers Care News Commentator Name Role Phone None, Provider Primary Care Provider Unavailabl e Reason for Visit * Reason Comments Pelvic Pain Encounter Details Date Type Department Care Team (Latest Contact Info) Description 06/25/2014 10:48 EDT - 06/25/2014 14:41 EDT Hospital Encounter [facility] - [address] [id number] Daniela Ferreira PA-C [address] [place] [phone] Pelvic pain in female (Primary Dx); Vaginismus Discharge Disposition: Home or Self Care Social [...] Sign Reading Time Taken Comments Blood Pressure 107/68 06/25/2014 1247 EDT Pulse 62 06/25/2014 1247 EDT Temperature 36.6 ??C (97.9 ??F) 06/25/2014 1247 EDT Respiratory Rate 12 06/25/2014 1247 EDT Oxygen Saturation - - Inhaled Oxygen Concentration - - Weight - - Height - - Body Mass Index - - documented in this encounter Discharge Diagnoses Diagnosis 625.1 VAGINISMUS[ICD-9-CM] documented in this encounter Discharge Instructions * Attachments The following attachments cannot be sent through Care Everywhere. * PELVIC PAIN (ERITREAN) documented in this encounter Medications at Time of Discharge DIAZepam (VALIUM) 2 mg tablet Take 1-2 Tabs by mouth every 8 hours as needed (for spasm). 20 Tab 0 06/25/2014 11/25/2015 documented as of this encounter Ordered Prescriptions Prescription Sig Dispense Quantity Refills Last Filled Start Date End Date DIAZepam (VALIUM) 2 mg tablet Take 1-2 Tabs by mouth every 8 hours as needed (for spasm). 20 Tab 0 06/25/2014 11/25/2015 documented in this encounter Discharge Disposition Disposition Code Departure Means Destination Home or Self Care Car Home documented in this encounter ED Notes * Daniela Ferreira PA-C - 06/25/2014 1407 EDT DOS: 06/25/2014 Chief Complaint Patient presents with ??? Pelvic Pain The patient is a 23 y.o. female who presents today with Pelvic Pain HPI Comments: This is a 23 year old female patient with past medical history for termination of x 2 six years ago and 5 years ago. She also has history of a vagina cyst 4 years ago which was also removed surgically. She had some resultant pelvic floor discomfort. She has seen uro-gyencologist at [facility] and underwent pelvic floor rehabilitation and chiropractics with significant relief. PCP had also given her valium at that time. This was also helpful. In the last 3 months, she has had pain similar to her previous pelvic floor discomfort at the time of her menses. She is currently mensurating and is feeling the same discomfort. The discomfort is described as a sudden sharp pain in her vaginal area that takes her breath away overlying a baseline level of discomfort. This is uncomfortable and embarrassing for the patient. She is not currently sexually active. No control method currently. Has had some relief from smoking marijuanna. She took a benzodiazepine (not sure which) 2 days ago also with relief. Last sexual encounter was over 1 month ago. The history is provided by the patient. Pelvic Pain Associated symptoms include pelvic pain and vaginal pain. Pertinent negatives include no chest pain, no chills, no fever, no dysuria, no frequency, no hematuria, no urgency, no vaginal bleeding, no vaginal discharge, no headaches, no sore throat, no cough, no shortness of breath and no rash. Review of Systems Constitutional: Negative for fever, chills, activity change, appetite change and fatigue. HENT: Negative for ear pain, congestion, sore throat, rhinorrhea and neck pain. Respiratory: Negative for cough and shortness of breath. Cardiovascular: Negative for chest pain and palpitations. Genitourinary: Positive for vaginal pain and pelvic pain. Negative for dysuria, urgency, frequency,hematuria, vaginal bleeding, vaginal discharge, difficulty urinating and menstrual problem. Skin: Negative for color change and rash. Neurological: Negative for dizziness, syncope, weakness, numbness and headaches. Psychiatric/Behavioral: Negative for behavioral problems. The patient is not nervous/anxious. No current facility-administered medications for this encounter. Current Outpatient Prescriptions Medication Sig Dispense Refill ??? DIAZepam (VALIUM) 2 mg tablet Take 1-2 Tabs by mouth every 8 hours as needed (for spasm). 20 Tab 0 Allergies Allergen Reactions ??? Imitrex (Sumatriptan Succinate) Shortness Of Breath There are no active problems to display for this patient. History reviewed. No pertinent past medical history. History Substance Use Topics ??? Smoking status: Never Smoker ??? Smokeless tobacco: Not on file ??? Alcohol Use: 1.5 oz/week 3 drink(s) per week History reviewed. No pertinent family history. BP 107/68 Pulse 62 Temp(Src) 97.9 ??F (36.6 ??C) Resp 12 Physical Exam Nursing note and vitals reviewed. Constitutional: She is oriented to person, place, and time. She appears well- developed and well-nourished. No distress. Cardiovascular: Normal rate and regular rhythm. Pulmonary/Chest: Effort normal. No respiratory distress. Genitourinary: Pt declines exam as she feels that manipulation of the area may make her feel worse. Neurological: She is alert and oriented to person, place, and time. Skin: Skin is warm and dry. Psychiatric: She has a normal mood and affect. Her behavior is normal. Consult orders: None PCP: Provider None Results for orders placed during the hospital encounter of 06/25/14 TEST, URINE Result Value Range Result- Test, Ur Neg Neg POCT URINE DIPSTICK Result Value Range Color YELLOW Clarity, UA Clear Glucose Neg Neg Bilirubin Neg Neg Ketones Neg Neg Specific [place] 1.025 1.001 - 1.035 Blood Neg Neg pH 7.0 4.6 - 8.0 Protein Neg Neg Urobilinogen 0.2 0.2 - 1.0 E.U./dl Nitrite Neg Neg Leuk Esterase Neg Neg Tech ID [id number] Radiology orders: None Imaging Results None Procedures Course: A medical screening exam was performed. Disposition: Discharged The patient's pain was managed to an adequate level weighing risk vs. benefit of further medications. Upon departure from the [facility], the patient's pain was 2 on a zero to ten scale. Condition at departure from the [facility]: Stable Final diagnoses: Pelvic pain in female Vaginismus rx for valium for short term F/U with OB-BUSINESS TEAM LEADER. Also recommended re-starting pelvic floor rehab and made some recommendations for therapists. Pt will return here any time for concerns in the meantime. Dr. Devendra Frias was available for consultation during my care of this patient. MDM 06/25/2014 20:24 * Sheree Chavez RN - 06/25/2014 1252 EDT Pt presents with her period,irritability,sharp stabbing pain in her vaginal area more recently. Reports last night very sharp pain and spasms. Reports Hx of Vaginal cyst and was operated on 3 years ago at [facility]. Hx of anxiety. Was sent to PT for pelvic floor dysfunction. Reports her mother lucio ativan that she took last night. Reports last PAP for physical within the year. documented in this encounter Plan of Treatment Upcoming Encounters Date Type Department Care Team (Late st Contact Info) Description 11/18/2024 8:15 EST Office Visit [facility] Pelvic Medicine and Reconstructive Surgery - Medical Office Building [facility] [address] [place] [address] Julia Terrell PA-C [address] [facility] Medical Office Building, [address] [place] [phone] 11/25/2024 8:00 EST Rehab Therapy Visit [facility] Rehabilitation Therapy - Medical Office Building [address] [place], [place] [phone] Cira Jackson DPT [address] [place] [address], [address] [place] [phone] 12/02/2024 8:00 EST Rehab Therapy Visit [facility] Rehabilitation Therapy - Medical Office Building [address] [place] [address] Cira Jackson DPT [address] [place] [address], [address] [place] [phone] 12/09/2024 8:00 EST Rehab Therapy Visit [facility] Rehabilitation Therapy - Medical Office Building [address] [place] [address] Cira Jackson DPT [address] [place] [address], [address] [place] [phone] 12/16/2024 9:00 EST Rehab Therapy Visit [facility] Rehabilitation Therapy - Medical Office Building [address] [place] [address] Cira Jackson DPT [address] [place] [address], [address] [place] [phone] 12/23/2024 9:00 EST Rehab Therapy Visit [facility] Rehabilitation Therapy - Medical Office Building [address] [place], [place] [phone] Cira Jackson, DPT [address] [facility], [facility], [address] [place] [phone] documented as of this encounter Procedures Procedure Name Priority Date/Time Associated Diagnosis Comments POCT URINE DIPSTICK, CLINITEK STAT 06/25/2014 13:08 EDT Pelvic pain in female TEST, URINE STAT 06/25/2014 13:05 EDT Pelvic pain in female documented in this encounter Results * POCT URINE DIPSTICK (06/25/2014 13:08 EDT) Color YELLOW [facility] Clarity, UA Clear [facility] Glucose Neg Neg [facility] Bilirubin Neg Neg [facility] Ketones Neg Neg [facility] Specific [place] 1.025 1.001 - 1.035 [facility] Blood Neg Neg [facility] pH 7.0 4.6 - 8.0 [facility] Protein Neg Neg [facility] Urobilinogen 0.2 0.2 - 1.0 E.U./dl [facility] Nitrite Neg Neg [facility] Leuk Esterase Neg Neg GABRIEL DUNN [facility] director visual ID [id number] [facility] Comment:Test performed at [facility] Urine specimen (specimen) 06/25/2014 13:08 EDT 06/25/2014 13:11 EDT us Daniela Ferreira PA-C POINT OF CARE TEST ORD ERABLES Final Result [facility] [address] [place] [address] * TEST, URINE (06/25/2014 13:05 EDT) Result- Test, Ur Neg Neg [facility] Comment: NOTE: False negative results may occur in women who are beyond 5-8 weeks gestation. Diagnosis of should be based on a correlation of test results with typical clinical signs and symptoms. Performed at [facility], [place], [place] Urine specimen (specimen) URINE / Unknown 06/25/2014 13:05 EDT 06/25/2014 13:12 EDT Daniela Ferreira PA-C URINALYSIS ORDERABLES Final Result [facility] [address] [place] [address] documented in this encounter Visit Diagnoses Diagnosis Pelvic pain in female- Primary Unspecified symptom associated with female genital organs Vaginismus documented in this encounter Discontinued Medications Medication Sig Discontinue Reason Start Date End Da te LORazepam (ATIVAN) 1 mg tablet Take 1 mg by mouth 3 times daily. Therapy completed 06/25/2014 documented as of this encounter Historical Medications * This list may reflect changes made after this encounter. LORazepam (ATIVAN) 1 mg tablet Take 1 mg by mouth 3 times daily. 06/25/2014 added in this encounter Care Teams News Commentator Relationship Specialty Start Date End Date None, Provider PCP - General 06/25/14 08/06/23 documented as of this encounter
--- OUTSIDE RECORDS SUMMARY | 2024-11-10 02:18 | XMS_ITS | Encounter Summary ---
Author Organization [facility] Address [address] [place] [address] Care Team Providers Care Nanoelectronics Engineer Name Role Phone None, Provider Primary Care Provider Unavailabl e Encounter Details Date Type Department Care Team (Late st Contact Info) Description 01/07/2016 Results Only [facility] [phone] Sandra Gordon MD [address] [place] [phone] Social History Tobacco Use Types Packs/Day Years [...] of Assessment Author No 11/27/2015 12:00 EST Clarice, H sanchez, RN * Do you have difficulty dressing [...] Medicine and Reconstructive Surgery - Medical Office [facility] [address] [place] [address] Julia Terrell PA-C [address] [place] [address] Medical Office [facility], [address] [place] [phone] 11/25/2024 8:00 EST Rehab Therapy Visit [facility] Rehabilitation Therapy - Medical Office Building [address] [place] [address] Cira Jackson DPT [address] [place] [address], [address] [place] [phone] 12/02/2024 8:00 EST Rehab Therapy Visit [facility] Rehabilitation Therapy - Medical Office Building [address] [place] [address] Cira Jackson DPT [address] [place] [address], [address] [place] [phone] 12/09/2024 8:00 EST Rehab Therapy Visit [facility] Rehabilitation Therapy - Medical Office Building [address] [place], [place] [address] Cira Jackson, KEMALT [address] [place] [address], [facility], [address] [place] [phone] 12/16/2024 9:00 EST Rehab Therapy Visit [facility] Rehabilitation Therapy - Medical Office [place] [place] [address] Cira Jackson, ROBERTO [address] [place] [address], [facility], [address] [place] [phone] 12/23/2024 9:00 EST Rehab Therapy Visit [facility] - Medical Office [address] [address] Cira Jackson, ROBERTO [address] [place] [address], [facility], [address] [place] [phone] documented as of this encounter Procedures Procedure Name Priority Date/Time Associated Diagnosis Comments PAP TEST- RESULT ONLY Routine 01/07/2016 0:00 EDT documented in this encounter Results * PAP TEST- RESULT ONLY (01/07/2016 0:00 EDT) Pathology Report: CYTOPATHOLOGY REPORT Reports generated via electronic interface contain original data; however they are lacking the format of the original report. Caution should be taken when reading/interpret ing unformatted reports. Name: ? YE PEREZ ? Accession #: ? [id number] : ? 1990 (Age: 25) ??F ?Collect Date: ? 01/07/2016 Location: ? [facility] ? Receive Date: ? 01/12/2016 Provider: ?SANDRA GORDON MD Copy to: ? Specimen/Source: ?Pap Test, Cervix/Endocervix , ThinPrep Imaging System with manual evaluation Last Menstrual Period: ? 01/06/2016 Menstrual/Pregnan cy Status: ? Post ? SPECIMEN ADEQUACY ? Unsatisfactory for Evaluation, - insufficient numbers of squamous epithelial cells (less than 10% of expected cellularity) - sample preparation compromised by excessive blood GENERAL CATEGORIZATION ? Specimen processed and examined, but unsatisfactory for evaluation of epithelial abnormality. ??Recommend repeat Pap test in 2-4 months as stated in ASCCP's 2012 Updated Consensus Guidelines. EDUCATIONAL NOTES/RECOMMENDAT IONS ? An additional slide was prepared and evaluated. ? Document reviewed and electronically signed by: ? DORON Murphy([facility]) ? Report Date: ??01/19/2016 10:48 End of Report [facility] 01/07/2016 01/12/2016 us Sandra Gordon MD PATHOLOGY ORDERABLES F inal Result [facility] [address] [place] [address] documented in this encounter Visit Diagnoses Not on filedocumented in this encounter Care Teams Nanoelectronics Engineer Relationship Specialty Start Date End Date None, Provider PCP - General 06/25/14 08/06/23 documented as of this encounter
--- OUTSIDE RECORDS SUMMARY | 2024-11-10 02:18 | XMS_ITS | Encounter Summary ---
Author Organization [facility] Address [address] [place] [address] Care Team Providers Care Frame Polisher Name Role Phone None, Provider Primary Care Provider Unavailabl e Encounter Details Date Type Department Care Team (Latest Contact Info) Description 11/06/2018 14:48 EST - 11/06/2018 23:59 EST Hospital Encounter [facility] [address] [place] [id number] [place], [place], [place] [address] [place] [address] Discharge Disposition: Auto Discharge Social History Tobacco Use Types Packs/Day Years Used Date Smoking Tobacco: Never Smokeless Tobacco: Never Alcohol Use Standard Drinks/Week Comments No 0 (1 standard drink = 0.6 oz pur e alcohol) social Comments No Sex and Gender Information Value [...] documented in this encounter Discharge Diagnoses Diagnosis M53.3 Sacrococcygeal disorders, not elsewhere classified-M53.3[ICD-10-CM] documented in this encounter Medications at Time [...] Info) Description 11/18/2024 8:15 EST Office Visit [facility] Pelvic Medicine and Reconstructive Surgery - Medical Office Building [facility] [address] [place] [address] Julia Terrell PA-C [address] [place] [address] Medical Office [facility], [address] [place] [phone] 11/25/2024 8:00 EST Rehab Therapy Visit [facility] Rehabilitation Therapy - Medical Office Building [address] [place] [address] Cira Jackson DPT [address] [place] [address], [facility], [address] [place] [phone] 12/02/2024 8:00 EST Rehab Therapy Visit [facility] Rehabilitation Therapy - Medical Office Building [address] [place] [address] Cira Jackson, ROBERTO [address] [place] [address], [facility], [address] [place] [phone] 12/09/2024 8:00 EST Rehab Therapy Visit [facility] Rehabilitation Therapy - Medical Office [address] [address] Cira Jackson DPT [address] [place] [address], [facility], [address] [place] [phone] 12/16/2024 9:00 EST Rehab Therapy Visit [facility] Rehabilitation Therapy - Medical Office [address] [address] Cira Jackson DPT [address] [place] [address], [facility], [address] [place] [phone] 12/23/2024 9:00 EST Rehab Therapy Visit [facility] Rehabilitation Therapy - Medical Office Building [address] [place] [address] Cira Jackson, DPT [address] [place] [address], [facility], [address] [place] [phone] documented as of this encounter Visit Diagnoses Not on filedocumented in this encounter Care Teams Frame Polisher Relationship Specialty Start Date End Date None, Provider PCP - General 06/25/14 08/06/23 documented as of this encounter
--- OUTSIDE RECORDS SUMMARY | 2024-11-10 02:18 | XMS_ITS | Encounter Summary ---
Author Organization [facility] Address [address] [place] [address] Care Team Providers Care Air Deodorizer Servicer Name Role Phone None, Provider Primary Care Provider Unavailabl e Encounter Details Date Type Department Care Team ([facility] st Contact Info) Description 10/29/2015 10:46 EST - 10/29/2015 10:47 EST Hospital Encounter [address] [address] Sandra Gordon MD [address] [place] [phone] Discharge Disposition: Home or Self Care Social [...] as of this encounter Discharge Diagnoses Diagnosis Z36 Encounter for screening of mother-Z36[ICD-10-CM] Z3A.35 35 weeks gestation of -Z3A.35[ICD-10-CM] Z34.83 Encounter for supervision of other normal , third trimester-Z34.83[ICD-10-CM] documented in this encounter Medications at Time of Discharge albuterol 90 mcg/actuation inhaler Inhale 2 Puffs as directed every 4 hours. 1 Inhaler 0 08/10/2014 inhalational spacing device (BREATHERITE MDI SPACER) Use with a metered dose inhaler, as directed. May be dispensed with mask as appropriate.. 1 Each 0 08/10/2014 acetaminophen (TYLENOL) 325 mg tablet Take 1-2 Tabs by mouth every 4 hours as needed for Pain 11/28/2015 6 acetaminophen (TYLENOL) 500 mg tablet Take 2 Tabs by mouth every 6 hours 11/29/2015 7 DIAZepam (VALIUM) 2 mg tablet Take 1-2 Tabs by mouth every 8 hours as needed (for spasm). 20 Tab 0 06/25/2014 6 docusate sodium (COLACE) 100 mg capsule Take 1 Cap by mouth 2 times daily as needed for Constipation 11/28/2015 7 guaiFENesin (ROBITUSSIN) 100 mg/5 mL liquid Take 200 mg by mouth every 4 hours. 6 guaifenesin-code ine (GUAIFENESIN AC) 100-10 mg/5 mL liquid Take 5 mL by mouth at bedtime as needed for Cough. 120 mL 0 08/10/2014 6 HYDROCODONE/ACET AMINOPHEN (VICODIN ORAL) Take 1 Tab by mouth as needed 6 HYDROmorphone (DILAUDID) 2 mg tablet Take 1 Tab by mouth every 4 hours Daily Max: 12 mg 5 Tab 0 11/29/2015 7 HYDROmorphone (DILAUDID) 2 mg tablet Take 1 Tab by mouth every 4 hours as needed for Pain Daily Max: 12 mg 15 Tab 0 11/29/2015 7 HYDROmorphone (DILAUDID) 2 mg tablet Take 1-2 Tabs by mouth every 4 hours as needed for Pain Daily Max: 24 mg 15 Tab 0 11/28/2015 6 ibuprofen (MOTRIN) 200 mg tablet Take 600 mg by mouth every 6 hours. 6 ibuprofen (MOTRIN) 400 mg tablet Take 1 Tab by mouth every 4 hours as needed for Pain 11/28/2015 6 ibuprofen (MOTRIN) 600 mg tablet Take 1 Tab by mouth every 6 hours 11/29/2015 6 ibuprofen (MOTRIN) 600 mg tablet Take 1 Tab by mouth every 6 hours 30 Tab 2 11/29/2015 7 multivitamin vit-iron fumarate-FA (STUARTNATAL) 27 mg iron- 1 mg tablet tablet Take 1 Tab by mouth daily. Reported on 02/09/2017 7 PSEUDOEPHEDRINE HCL (SUDAFED 12 HOUR ORAL) Take by mouth. 6 documented as of this encounter Discharge Disposition Disposition Code Departure Means Destination Home or Self Care documented in this encounter Plan of Treatment Upcoming Encounters Date Type Department Care Team (Late st Contact Info) Description 11/18/2024 8:15 EST Office Visit [facility] Pelvic Medicine and Reconstructive Surgery - Medical Office Building [address] [address] Julia Terrell PA-C [address] [place] [address] Medical Office [facility], [address] [phone] 11/25/2024 8:00 EST Rehab Therapy Visit [facility] Rehabilitation Therapy - Medical Office Building [address] [place] [address] Cira Jackson DPT [address] [place] [address] [address] [place] [phone] 12/02/2024 8:00 EST Rehab Therapy Visit [facility] Rehabilitation Therapy - Medical Office Building [address] [place] [address] Cira Jackson DPT [address] [place] [address]s [address] [place] [phone] 12/09/2024 8:00 EST Rehab Therapy Visit [facility] Rehabilitation Therapy - Medical Office Building [address] [place] [address] Cira Jackson DPT [address] [place] [address], [address], [address] [place] [phone] 12/16/2024 9:00 EST Rehab Therapy Visit [facility] Rehabilitation Therapy - Medical Office Building [address] [place] [address] Cira Jackson DPT [address] [place] [address], [address], [address] [place] [phone] 12/23/2024 9:00 EST Rehab Therapy Visit [facility] Rehabilitation Therapy - Medical Office Building [address] [place] [address] Cira Jackson DPT [address] [place] [address], [facility], [address] [place] [phone] documented as of this encounter Visit Diagnoses Not on filedocumented in this encounter Care Teams Air Deodorizer Servicer Relationship Specialty Start Date End Date None, Provider PCP - General 06/25/14 08/06/23 documented as of this encounter
--- OUTSIDE RECORDS SUMMARY | 2024-11-10 02:18 | XMS_ITS | Encounter Summary ---
Author Organization [facility] Address [address] [place] [address] Care Team Providers Care Turner Off Name Role Phone None, Provider Primary Care Provider Unavailabl e Encounter Details Date Type Department Care Team (Late st Contact Info) Description 09/07/2015 Results Only [facility]- PRISM [phone] Julia Hall NP Social History Tobacco Use Types Packs/Day Years [...] Info) Description 11/18/2024 8:15 EST Office Visit [facility] Pelvic Medicine and Reconstructive Surgery - Medical Office Building [address] [phone] Julia Terrell PA-C 2 [facility] Medical Office [facility], [address] [phone] 11/25/2024 8:00 EST Rehab Therapy Visit [facility] Rehabilitation Therapy - Medical Office Building [address] [place], [place] [address] Cira Jackson DPT [address] [place] [address], [facility], [address] [place] [phone] 12/02/2024 8:00 EST Rehab Therapy Visit [facility] Rehabilitation Therapy - Medical Office Building [address] [place] [address] Cira Jackson DPT [address] [place] [address], [facility], [address] [place] [phone] 12/09/2024 8:00 EST Rehab Therapy Visit [facility] Rehabilitation Therapy - Medical Office Building [address] [place] [phone] Cira Jackson DPT [address] [place] [address], [address] [place] [phone] 12/16/2024 9:00 EST Rehab Therapy Visit [facility] Rehabilitation Therapy - Medical Office Building [address] [place] [phone] Cira Jackson, ROBERTO [address] [place] [address], [address] [place] [phone] 12/23/2024 9:00 EST Rehab Therapy Visit [facility] Rehabilitation Therapy - Medical Office Building [address] [place] [address] [phone] Cira Jackson, KEMALT [address] [place] [address], [address] [place] [phone] documented as of this encounter Procedures Procedure Name Priority Date/Time Associated Diagnosis Comments GLUCOSE-1HR GESTATIONAL SCREEN Routine 09/07/2015 12:05 EST HGB Routine 09/07/2015 12:05 EST documented in this encounter Results * HGB (09/07/2015 12:05 EST) Hemoglobin 12.0 11.6 - 15.2 gm/dl 09/07/2015 18:18 EST [facility] BLOOD SPECIMEN / Unknown 09/07/2015 12:05 EST 09/07/2015 17:54 EST Julia Hall NP HEMATOLOGY & PF4 ORDERABLES Fi nal Result Performing Organization Address City/[facility]/ZIP Co de Phone Number [facility] [address] [place] [address] * (ABNORMAL) GLUCOSE-1HR GESTATIONAL SCREEN (09/07/2015 12:05 EST) Glucose Dose 50 g 09/07/2015 12:06 EST [facility] Glucose-1hr Gest Scn 138(H) 50 - 134 mg/dl 09/07/2015 19:29 EST [facility] Comment: Slight hemolysis Results may be affected due to hemolysis. A one hour glucose greater than or equal to 135 mg/dl should be further evaluated with a formal three hour glucose tolerance test. BLOOD SPECIMEN / Unknown 09/07/2015 12:05 EST 09/07/2015 17:54 EST us Julia Hall NP PACKAGES & DNA PROBE ORDERABLE S Final Result Performing Organization Address City/[facility]/ZIP Co de Phone Number [facility] [address] [place] [address] documented in this encounter Visit Diagnoses Not on filedocumented in this encounter Care Teams Turner Off Relationship Specialty Start Date End Date None, Provider PCP - General 06/25/14 08/06/23 documented as of this encounter
--- OUTSIDE RECORDS SUMMARY | 2024-11-10 02:18 | XMS_ITS | Encounter Summary ---
Author Organization [facility] Address [address] [place] [address] Care Team Providers Care Technical Services Analyst Name Role Phone None, Provider Primary Care Provider Unavailabl e Encounter Details Date Type Department Care Team ([facility] st Contact Info) Description 01/07/2016 10:50 EDT - 01/07/2016 10:51 EDT Hospital Encounter [address] [address] Sandra Gordon MD [address] [place] [phone] Discharge Disposition: Home or Self Care Social [...] documented in this encounter Discharge Diagnoses Diagnosis Z39.2 Encounter for routine [id number][ICD-10-CM] documented in this encounter Medications at Time [...] Info) Description 11/18/2024 8:15 EST Office Visit [facility] Pelvic Medicine and Reconstructive Surgery - Medical Office Building [facility] [address] [place] [address] Julia Terrell PA-C 2 [facility] Medical Office [facility] [address], [address] [phone] 11/25/2024 8:00 EST Rehab Therapy Visit [facility] Rehabilitation Therapy - Medical Office [address] [address] Cira Jackson DPT [address] [place] [address] [address] [place] [phone] 12/02/2024 8:00 EST Rehab Therapy Visit [facility] Rehabilitation Therapy - Medical Office Building [address] [place] [address] Cira Jackson DPT [address] [place] [address], [address] [place] [address] [phone] 12/09/2024 8:00 EST Rehab Therapy Visit [facility] Rehabilitation Therapy - Medical Office Building [address] [place] [address] Cira Jackson, ROBERTO [address] [place] [address], [address] [place] [phone] 12/16/2024 9:00 EST Rehab Therapy Visit [facility] Rehabilitation Therapy - Medical Office Building [address] [place] [address] Cira Jackson DPT [address] [place] [address], [facility], [address] [place] [phone] 12/23/2024 9:00 EST Rehab Therapy Visit [facility] Rehabilitation Therapy - Medical Office Building [address] [place] [address] Cira Jackson DPT [address] [place] [address], [facility], [address] [place] [phone] documented as of this encounter Visit Diagnoses Not on filedocumented in this encounter Care Teams Technical Services Analyst Relationship Specialty Start Date End Date None, Provider PCP - General 06/25/14 08/06/23 documented as of this encounter
--- OUTSIDE RECORDS SUMMARY | 2024-11-10 02:18 | XMS_ITS | Encounter Summary ---
Author Organization [facility] Address [address] [place] [address] Care Team Providers Care Vp Site Name Role Phone None, Provider Primary Care Provider Rach Stacy MD Unavailable [phone] Ariana Dill DNP Primary Care Provider [phone] Encounter Details Date Type Department Care Team (Late st Contact Info) Description 05/17/2021 Lab Requisition [facility] Pathology & Laboratory Medicine - [facility] [address] [place] [address] Sandra Gordon MD [address] [place] [phone] Encounter for supervision of other normal , second trimester; 14 weeks gestation of ; Encounter for screening for human immunodeficiency virus (HIV) Social History Tobacco Use Types Packs/Day Years [...] 11/18/2024 8:15 EST Office Visit [facility] Pelvic Medicine and Reconstructive Surgery - Medical Office Building [facility] [address] [place] [address] Julia Terrell PA-C 2 [facility] Medical Office Building, [address] [place] [phone] 11/25/2024 8:00 EST Rehab Therapy Visit [facility] Rehabilitation Therapy - Medical Office Building [address] [place], [place] [phone] Cira Jackson DPT [address], [facility], [address] [place] [phone] 12/02/2024 8:00 EST Rehab Therapy Visit [facility] Rehabilitation Therapy - Medical Office Building [address] [place] [address] Cira Jackson, KEMALT [address] [place] [address], [facility], [address] [place] [phone] 12/09/2024 8:00 EST Rehab Therapy Visit [facility] Rehabilitation Therapy - Medical Office Building [address] [place] [address] Cira Jackson, ROBERTO [address] [place] [address], [facility], [address] [place] [phone] 12/16/2024 9:00 EST Rehab Therapy Visit [facility] Rehabilitation Therapy - Medical Office Building [address] [place] [address] Cira Jackson, KEMALT [address] [place] [address], [facility], [address] [place] [phone] 12/23/2024 9:00 EST Rehab Therapy Visit [facility] Rehabilitation Therapy - Medical Office Building [address] [place] [address] Cira Jackson, DPT [address] [place] [address], [facility], [address] [place] [phone] documented as of this encounter Procedures Procedure Name Priority Date/Time Associated Diagnosis Comments HOLD SST Today 05/17/2021 13:05 EDT Encounter for supervision of other normal , second trimester [ICD-10-CM] 14 weeks gestation of [ICD-10-CM] Encounter for screening for human immunodeficiency virus (HIV) [ICD-10-CM] BB STUDY Today 05/17/2021 13: 05 EDT Encounter for supervision of other normal , second trimester [ICD-10-CM] 14 weeks gestation of [ICD-10-CM] PROFILE Today 05/17/2021 13:0 5 EDT Encounter for supervision of other normal , second trimester [ICD-10-CM] 14 weeks gestation of [ICD-10-CM] SYPHILIS SEROLOGY Today 05/17/2021 13: 05 EDT Encounter for supervision of other normal , second trimester [ICD-10-CM] 14 weeks gestation of [ICD-10-CM] RUBELLA IGG ANTIBODY Today 05/17/2021 13:05 EDT Encounter for supervision of other normal , second trimester [ICD-10-CM] 14 weeks gestation of [ICD-10-CM] HEPATITIS B SURFACE ANTIGEN Today 05/17/2021 13:05 EDT Encounter for supervision of other normal , second trimester [ICD-10-CM] 14 weeks gestation of [ICD-10-CM] COMPLETE BLOOD COUNT AND DIFFERENTIAL Today 05/17/2021 13:05 EDT Encounter for supervision of other normal , second trimester [ICD-10-CM] 14 weeks gestation of [ICD-10-CM] VARICELLA IGG ANTIBODY Today 05/17/2021 13:05 EDT Encounter for supervision of other normal , second trimester [ICD-10-CM] 14 weeks gestation of [ICD-10-CM] HIV 1/2 ANTIGEN AND ANTIBODY, 4TH GENERATION Today 05/17/2021 13:05 EDT Encounter for supervision of other normal , second trimester [ICD-10-CM] 14 weeks gestation of [ICD-10-CM] Encounter for screening for human immunodeficiency virus (HIV) [ICD-10-CM] documented in this encounter Results * HOLD SST (05/17/2021 13:05 EDT) Hold Hold 05/17/2021 20:01 EDT [facility] Blood VENOUS BLOOD / Unknown 05/17/2021 13:05 EDT 05/17/2021 18:54 EDT us Sandra Gordon MD LAB INFO SERVICE AND S UPPORT & PHONE RESULT Final Result Performing Organization Address City/[facility]/ZIP Co de Phone Number [facility] [address] [place] [address] * BB STUDY (05/17/2021 13:05 EDT) ABO O 05/17/2021 19:58 EDT [facility] Rh Factor Negative 05/17/2021 19:58 EDT [facility] Antibody Screen Negative 05/17/2021 19:58 EDT [facility] Specimen Expires: 05/20/2021 @ 23:59 05/17/2021 19:58 EDT [facility] Blood VENOUS BLOOD / Unknown 05/17/2021 13:05 EDT 05/17/2021 18:54 EDT Result [facility] us Sandra Gordon MD BLOOD BANK TESTS Edite d Result - Final Performing Organization Address [facility] Co de Phone Number [facility] [address] [place] [phone] * RUBELLA IGG ANTIBODY (05/17/2021 13:05 EDT) Rubella IgG Ab Positive See Note 05/18/2021 10:35 EDT [facility] Comment:Positive for IgG ant ibodies to Rubella virus. Blood VENOUS BLOOD / Unknown 05/17/2021 13:05 EDT 05/17/2021 18:54 EDT us Sandra Gordon MD CHEMISTRY & BLOOD GAS ORDERABLES Final Result [facility] [address] [place] [address] * SYPHILIS SEROLOGY (05/17/2021 13:05 EDT) Pathologist [facility] Syphilis Serology Negative Negative 05/18/2021 10:51 EDT [facility] Blood VENOUS BLOOD / Unknown 05/17/2021 13:05 EDT 05/17/2021 18:54 EDT Sandra Gordon MD IMMUNOLOGY AND SEROLOG Y ORDERABLES Final Result Performing Organization Address City/[facility]/ZIP Co de Phone Number [facility] [address] [place] [address] * HEPATITIS B SURFACE ANTIGEN (05/17/2021 13:05 EDT) Pathologist [facility] Hep B Surface Ag Negative Negative 05/18/2021 11:13 EDT [facility] Blood VENOUS BLOOD / Unknown 05/17/2021 13:05 EDT 05/17/2021 18:54 EDT Sandra Gordon MD CHEMISTRY & BLOOD GAS ORDERABLES Final Result Performing Organization Address [facility] Co de Phone Number [facility] [address] [place] [address] * (ABNORMAL) COMPLETE BLOOD COUNT AND DIFFERENTIAL (05/17/2021 13:05 EDT) [facility] WBC 5.93 4.00 - 12.40 K/cmm 05/17/2021 19:29 EDT [facility] RBC 3.70(L) 3.86 - 5.04 M/cmm 05/17/2021 19:29 T [facility] Hemoglobin 12.1 11.6 - 15.2 gm/dL 05/17/2021 19:29 [facility] HCT 34.7(L) 34.9 - 44.4 % 05/17/2021 19:29 T [facility] MCV 94 81 - 98 fl 05/17/2021 19:29 [facility] MCH 32.7 26.7 - 33.3 pg 05/17/2021 19:29 [facility] MCHC 34.9 32.1 - 35.9 gm/dL 05/17/2021 19:29 [facility] RDW-CV 12.7 <14.7 % 05/17/2021 19:29 [facility] RDW-SD 43.8 <50.4 fl 05/17/2021 19:29 [facility] PLT 262 141 - 377 K/cmm 05/17/2021 19:29 [facility] MPV 11.0 9.5 - 12.7 fl 05/17/2021 19:29 [facility] % Neutrophils 62.1 % 05/17/2021 19:29 [facility] % Lymphocytes 31.0 % 05/17/2021 19:29 [facility] % Monocytes 6.4 % 05/17/2021 19:29 [facility] % Eosinophils 0.2 % 05/17/2021 19:29 [facility] % Basophils 0.0 % 05/17/2021 19:29 [facility] % Immature Grans 0.3 % 05/17/20 19:29 [facility] Absolute Neutrophils 3.68 2.20 - 8.85 K/cmm 05/17/2021 19:29 [facility] Absolute Lymphocytes 1.84 1.09 - 3.30 K/cmm 05/17/2021 19:29 [facility] Absolute Monocytes 0.38 0.10 - 0.80 K/cmm 05/17/2021 19:29 [facility] Absolute Eosinophils 0.01(L) 0.03 - 0.61 K/cmm 05/17/2021 19:29 [facility] ABS Basophils 0.00(L) 0.01 - 0.11 K/cmm 05/17/2021 19:29 [facility] Absolute Immature Grans 0.02 0.00 - 0.06 K/cmm 05/17/2021 19:29 EDT [facility] Type of Differential: Auto 05/17/2021 19:29 EDT [facility] Blood VENOUS BLOOD / Unknown 05/17/2021 13:05 EDT 05/17/2021 18:54 EDT Sandra Gordon MD PACKAGES & DNA PROBE O RDERABLES Final Result Performing Organization Address [facility] Co de Phone Number [facility] [address] [place] [address] * VARICELLA IGG ANTIBODY (05/17/2021 13:05 EDT) Varicella IgG Ab Positive See Note 05/18/2021 10:33 EDT [facility] Comment:Presence of detectab le Varicella Zoster virus IgG antibodies. Blood VENOUS BLOOD / Unknown 05/17/2021 13:05 EDT 05/17/2021 18:54 EDT us Sandra Gordon MD IMMUNOLOGY AND SEROLOG Y ORDERABLES Final Result Performing Organization Address [facility] de Phone Number [facility] [address] [place] [address] * HIV 1/2 ANTIGEN AND ANTIBODY, 4TH GENERATION (05/17/2021 13:05 EDT) HIV 1 and 2 Antibody/p24 Antigen, 4th Generation Negative Negative 05/18/2021 11:46 EDT [facility] Comment: If acute HIV-1 infection is suspected in a high risk ??patient, submit plasma specimen for HIV-1 RNA quantitation test. Fourth Generation assay performed on the Siemens Centaur. Blood VENOUS BLOOD / Unknown 05/17/2021 13:05 EDT 05/17/2021 18:54 EDT us Sandra Gordon MD IMMUNOLOGY AND SEROLOG Y ORDERABLES Final Result Performing Organization Address City/[facility]/ZIP Co de Phone Number [facility] [address] [place] [address] documented in this encounter Visit Diagnoses Diagnosis Encounter for supervision of other normal , second trimester 14 weeks gestation of state, incidental Encounter for screening for human immunodeficiency virus (HIV) Special screening examination for other specified viral diseases documented in this encounter Additional Health Concerns Infection Onset Date Last Indicated Resolved Time R/O COVID 01/11/2024 01/11/2024 01/11/2024 22:3 5 EDT documented as of this encounter Care Teams Vp Site Relationship Specialty Start Date End Date None, Provider PCP - General 06/25/14 08/06/23 Ariana Dill DNP [address] [place] [id number] PCP - General 08/07/23 Rach Waddell MD [address] [facility], [address] [place] [phone] Marketing Development Manager Obstetrics and Gynecology 05/10/23 documented as of this encounter
--- OUTSIDE RECORDS SUMMARY | 2024-11-10 02:18 | XMS_ITS | Encounter Summary ---
Author Organization [facility] Address [address] [place] [address] Care Team Providers Care Business Proposal Rep Name Role Phone None, Provider Primary Care Provider Unavailabl e Encounter Details Date Type Department Care Team (Late st Contact Info) Description 05/31/2017 Results Only [facility]- PRISM [phone] Sandra Gordon MD [address] [place] [phone] Social History Tobacco Use Types Packs/Day [...] Medicine and Reconstructive Surgery - Medical Office [facility] [address] [place] [address] Julia Terrell PA-C [address] [place] [address] Medical Office [facility], [address] [place] [phone] 11/25/2024 8:00 EST Rehab Therapy Visit [facility] Rehabilitation Therapy - Medical Office Building [address] [place] [address] Cira Jackson DPT [address] [place] [address] [address] [place] [phone] 12/02/2024 8:00 EST Rehab Therapy Visit [facility] Rehabilitation Therapy - Medical Office Building [address] [place] [address] Ciar Jackson DPT [address] [place] [address], [address] [place] [phone] 12/09/2024 8:00 EST Rehab Therapy Visit [facility] Rehabilitation Therapy - Medical Office Building [address] [place] [address] Cira Jackson DPT [address] [place] [address], [facility], [address] [place] [phone] 12/16/2024 9:00 EST Rehab Therapy Visit [facility] Rehabilitation Therapy - Medical Office Building [address] [place] [address] Cira Jackson DPT [facility], [facility], [address] [place] [phone] 12/23/2024 9:00 EST Rehab Therapy Visit [facility] Rehabilitation Therapy - Medical Office Building [address] [place] [address] Cira Jackson DPT [address] [place] [address], [facility], [address] [place] [phone] documented as of this encounter Procedures Procedure Name Priority Date/Time Associated Diagnosis Comments BACTERIAL CULTURE, URINE Routine 05/31/2017 12:18 EDT documented in this encounter Results * BACTERIAL CULTURE, URINE (05/31/2017 12:18 EDT) Result Less than 10,000 CFU/ml Usual urogenital tomy. 06/02/2017 7:50 EDT [facility] URINE / Unknown 05/31/2017 1 2:18 EDT 05/31/2017 18:27 EDT us Sandra Gordon MD MICROBIOLOGY - GENERAL ORDERABLES Final Result [facility] [address] [place] [address] documented in this encounter Visit Diagnoses Not on filedocumented in this encounter Care Teams Business Proposal Rep Relationship Specialty Start Date End Date None, Provider PCP - General 06/25/14 08/06/23 documented as of this encounter
--- OUTSIDE RECORDS SUMMARY | 2024-11-10 02:18 | XMS_ITS | Encounter Summary ---
Author Organization [facility] Address [address] [place] [address] Care Team Providers Care Process Trainer Name Role Phone None, Provider Primary Care Provider Unavailabl e Encounter Details Date Type Department Care Team (Late st Contact Info) Description 11/19/2015 Results Only [facility] [phone] Sandra Gordon MD [address] [place] [phone] Social History Tobacco Use Types Packs/Day Years [...] and Reconstructive Surgery - Medical Office Building [facility] [address] [place] [address] Julia Terrell PA-C [address] [place] [address] Medical Office [facility], [address] [place] [phone] 11/25/2024 8:00 EST Rehab Therapy Visit [facility] Rehabilitation Therapy - Medical Office Building [address] [place] [address] Cira Jackson DPT [address] [place] [address], [facility], [address] [place] [phone] 12/02/2024 8:00 EST Rehab Therapy Visit [facility] Rehabilitation Therapy - Medical Office Building [address] [place] [address] Cira Jackson DPT [address] [place] [address], [facility], [address] [place] [phone] 12/09/2024 8:00 EST Rehab Therapy Visit [facility] Rehabilitation Therapy - Medical Office [address] [address] Cira Jackson DPT [address] [place] [address], [facility], [address] [place] [phone] 12/16/2024 9:00 EST Rehab Therapy Visit [facility] Rehabilitation Therapy - Medical Office [address] [address] Cira Jackson DPT [address] [place] [address], [facility], [address] [place] [phone] 12/23/2024 9:00 EST Rehab Therapy Visit [facility] Rehabilitation Therapy - Medical Office Building [address] [place] [address] Cira Jackson DPT [address] [place] [address], [facility], [address] [place] [phone] documented as of this encounter Procedures Procedure Name Priority Date/Time Associated Diagnosis Comments COMPLETE BLOOD COUNT Routine 11/19/2015 15:02 EST URIC ACID Routine 11/19/2015 15:02 EST BUN Routine 11/19/2015 15:02 EST ALT Routine 11/19/2015 15:02 EST AST Routine 11/19/2015 15:02 EST CREATININE Routine 11/19/2015 15:02 EST documented in this encounter Results * URIC ACID (11/19/2015 15:02 EST) Uric Acid 7.0 2.2 - 7.7 mg/dl 11/19/2015 18:58 EST [facility] BLOOD SPECIMEN / Unknown 11/19/2015 15:02 EST 11/19/2015 18:11 EST Sandra Gordon MD CHEMISTRY & BLOOD GAS ORDERABLES Final Result Performing Organization Address City/State/[facility] Co de Phone Number [facility] [address] [place] [address] * CREATININE (11/19/2015 15:02 EST) Creatinine 0.68 0.52 - 1.04 mg/dl 11/19/2015 18:58 EST [facility] GFR, Calculated 122 >60 ml/min/1.7 3m2 11/19/2015 18:58 EST [facility] Comment: eGFR calculated using CKD-EPI equation for non Americans. Multiply eGFR by 1.16 for Americans. BLOOD SPECIMEN / Unknown 11/19/2015 15:02 EST 11/19/2015 18:11 EST Sandra Gordon MD CHEMISTRY & BLOOD GAS ORDERABLES Final Result [facility] [address] [place] [address] * HEMAGRAM (11/19/2015 15:02 EST) WBC 6.69 4.0 - 12.4 K/cmm 11/19/2015 18:32 [facility] RBC 3.89 3.86 - 5.04 M/cmm 11/19/2015 18:32 [facility] Hemoglobin 12.0 11.6 - 15.2 gm/dl 11/19/2015 18:32 [facility] HCT 35.2 34.9 - 44.4 % 11/19/2015 18:32 [facility] MCV 91 81 - 98 fl 11/19/2015 18:32 [facility] MCH 30.8 26.7 - 33.3 pg 11/19/2015 18:32 [facility] MCHC 34.1 32.1 - 35.9 gm/dl 11/19/2015 18:32 [facility] RDW-CV 13.2 11.7 - 14.6 % 11/19/2015 18:32 [facility] RDW-SD 43.5 37.6 - 50.3 fl 11/19/2015 18:32 [facility] PLT 222 141 - 377 K/cmm 11/19/2015 18:32 [facility] Comment:Note new reference r nel effective 11/02/15 MPV 12.1 9.5 - 12.7 fl 11/19/2015 18:32 [facility] Comment:Note new reference r nel effective 11/02/15 BLOOD SPECIMEN / Unknown 11/19/2015 15:02 EST 11/19/2015 18:11 EST us Sandra Gordon MD HEMATOLOGY & PF4 ORDER JANI Final Result [facility] [address] [place] [address] * (ABNORMAL) BUN (11/19/2015 15:02 EST) BUN 9(L) 10 - 26 mg/dl 11/19/2015 18:58 EST [facility] BLOOD SPECIMEN / Unknown 11/19/2015 15:02 EST 11/19/2015 18:11 EST us Sandra Gordon MD CHEMISTRY & BLOOD GAS ORDERABLES Final Result [facility] [address] [place] [address] * AST (11/19/2015 15:02 EST) AST 19 15 - 46 U/L 11/19/2015 18:58 EST [facility] BLOOD SPECIMEN / Unknown 11/19/2015 15:02 EST 11/19/2015 18:11 EST us Sandra Gordon MD CHEMISTRY & BLOOD GAS ORDERABLES Final Result [facility] [address] [place] [address] * ALT (11/19/2015 15:02 EST) ALT 18 <53 U/L 11/19/2015 18:58 EST [facility] BLOOD SPECIMEN / Unknown 11/19/2015 15:02 EST 11/19/2015 18:11 EST us Sandra Gordon MD CHEMISTRY & BLOOD GAS ORDERABLES Final Result Performing Organization Address City/[facility]/ZIP Co de Phone Number [facility] [address] [place] [address] documented in this encounter Visit Diagnoses Not on filedocumented in this encounter Care Teams Process Trainer Relationship Specialty Start Date End Date None, Provider PCP - General 06/25/14 08/06/23 documented as of this encounter
--- OUTSIDE RECORDS SUMMARY | 2024-11-10 02:18 | XMS_ITS | Encounter Summary ---
Author Organization [facility] Address [address] [place] [address] Care Team Providers Care Supervisor Process Testing Name Role Phone None, Provider Primary Care Provider Unavailabl e Encounter Details Date Type Department Care Team (Late st Contact Info) Description 04/20/2015 10:27 EDT - 04/20/2015 10:28 EDT Hospital Encounter [address] [address] Joe Chakraborty MD [address] [facility], [facility] [address] [place] [phone] Discharge Disposition: Home or Self Care Social [...] as of this encounter Discharge Diagnoses Diagnosis V72.42 EXAMINATION OR TEST, POSITIVE RESULT[ICD-9-CM] V73.89 SCREEN VIRAL DISEASE NEC[ICD-9-CM] documented in this encounter Medications at Time [...] 8:15 EST Office Visit [facility] Pelvic Medicine and Reconstructive Surgery - Medical Office Building [facility] [address] [place] [phone] Julia Terrell PA-C 2 [facility] Medical Office Building, [address] [place] [phone] 11/25/2024 8:00 EST Rehab Therapy Visit [facility] Rehabilitation Therapy - Medical Office Building [address] [place] [address] Cira Jackson DPT 2 [facility], [address] [place] [phone] 12/02/2024 8:00 EST Rehab Therapy Visit [facility] Rehabilitation Therapy - Medical Office Building [address] [place], [place] [address] Cira Jackson DPT [address] [place] [address], [facility], [address] [place] [phone] 12/09/2024 8:00 EST Rehab Therapy Visit [facility] Rehabilitation Therapy - Medical Office Building [address] [place] [address] Cira Jackson, ROBERTO [address] [place] [address], [facility], [address] [place] [phone] 12/16/2024 9:00 EST Rehab Therapy Visit [facility] Rehabilitation Therapy - Medical Office Building [address] [place] [address] Cira Jackson DPT [address] [place] [address], [facility], [address] [place] [phone] 12/23/2024 9:00 EST Rehab Therapy Visit [facility] Rehabilitation Therapy - Medical Office Building [address] [place] [address] Cira Jackson, KEMALT [address] [place] [address], [facility], [address] [place] [phone] documented as of this encounter Visit Diagnoses Not on filedocumented in this encounter Care Teams Supervisor Process Testing Relationship Specialty Start Date End Date None, Provider PCP - General 06/25/14 08/06/23 documented as of this encounter
--- OUTSIDE RECORDS SUMMARY | 2024-11-10 02:18 | XMS_ITS | Encounter Summary ---
Author Organization [facility] Address [address] [place] [address] Care Team Providers Care Supervisor Microwave Name Role Phone None, Provider Primary Care Provider Unavailabl e Encounter Details Date Type Department Care Team (Late st Contact Info) Description 09/14/2015 Phlebotomy Only [address] [address] Boilerhouse Mechanic, Outpatient Social History Tobacco Use Types Packs/Day Years [...] Visit [facility] Pelvic Medicine and Reconstructive Surgery - Medical Office Building [facility] [address] [place] [address] Julia Terrell PA-C 2 [facility] Medical Office [facility], [address] [phone] 11/25/2024 8:00 EST Rehab Therapy Visit [facility] Rehabilitation Therapy - Medical Office Building [address] [place] [address] Cira Jackson, DPT [address] [place] [address], [facility], [address] [place] [phone] 12/02/2024 8:00 EST Rehab Therapy Visit [facility] Rehabilitation Therapy - Medical Office Building [address] [place] [address] Cira Jackson, DPT [address] [place] [address], [facility], [address] [place] [phone] 12/09/2024 8:00 EST Rehab Therapy Visit [facility] Rehabilitation Therapy - Medical Office Building [address] [place] [address] Cira Jackson, KEMALT [address] [place] [address], [facility], [address] [place] [phone] 12/16/2024 9:00 EST Rehab Therapy Visit [facility] Rehabilitation Therapy - Medical Office Building [address] [place] [address] Cira Jackson, DPT [address] [place] [address], [facility], [address] [place] [phone] 12/23/2024 9:00 EST Rehab Therapy Visit [facility] Rehabilitation Therapy - Medical Office Building [address] [place] [address] Cira Jackson, DPT [address] [place] [address], [facility], [address] [place] [phone] documented as of this encounter Visit Diagnoses Not on filedocumented in this encounter Care Teams Supervisor Microwave Relationship Specialty Start Date End Date None, Provider PCP - General 06/25/14 08/06/23 documented as of this encounter
--- OUTSIDE RECORDS SUMMARY | 2024-11-10 02:18 | XMS_ITS | Encounter Summary ---
Author Organization [facility] Address [address] [place] [address] Care Team Providers Care Prototype Sewer Name Role Phone None, Provider Primary Care Provider Unavailabl e Encounter Details Date Type Department Care Team (Late st Contact Info) Description 10/29/2015 Results Only [facility] [phone] Sandra Gordon MD [address] [place] [phone] Social History Tobacco Use Types Packs/Day Years [...] Info) Description 11/18/2024 8:15 EST Office Visit [facility] Pelvic Medicine and Reconstructive Surgery - Medical Office Building [facility] [address] [place] [address] Julia Terrell PA-C [address] [place] [address] Medical Office [facility], [address] [place] [phone] 11/25/2024 8:00 EST Rehab Therapy Visit [facility] Rehabilitation Therapy - Medical Office Building [address] [place] [address] Cira Jackson DPT [address] [place] [address], [facility], [address] [place] [phone] 12/02/2024 8:00 EST Rehab Therapy Visit [facility] Rehabilitation Therapy - Medical Office Building [address] [place] [address] Cira Jackson DPT [address] [place] [address], [facility], [address] [place] [phone] 12/09/2024 8:00 EST Rehab Therapy Visit [facility] Rehabilitation Therapy - Medical Office [address] [address] Cira Jackson DPT [address] [place] [address], [facility], [address] [place] [phone] 12/16/2024 9:00 EST Rehab Therapy Visit [facility] Rehabilitation Therapy - Medical Office [address] [address] Cira Jackson DPT [address] [place] [address], [facility], [address] [place] [phone] 12/23/2024 9:00 EST Rehab Therapy Visit [facility] Rehabilitation Therapy - Medical Office Building [address] [place] [address] Cira Jackson DPT [address] [place] [address], [facility], [address] [place] [phone] documented as of this encounter Procedures Procedure Name Priority Date/Time Associated Diagnosis Comments GROUP B STREP PCR Routine 10/29/2015 10: 58 EST documented in this encounter Results * GROUP B STREP PCR (10/29/2015 10:58 EST) GROUP B STREP PCR Negative 10/31/2015 13:22 EST [facility] 10/29/2015 10:5 8 EST 10/29/2015 20:44 EST us Sandra Gordno MD MICROBIOLOGY - GENERAL ORDERABLES Final Result [facility] [address] [place] [address] documented in this encounter Visit Diagnoses Not on filedocumented in this encounter Care Teams Prototype Sewer Relationship Specialty Start Date End Date None, Provider PCP - General 06/25/14 08/06/23 documented as of this encounter
--- OUTSIDE RECORDS SUMMARY | 2024-11-10 02:18 | XMS_ITS | Encounter Summary ---
Author Organization [facility] Address [address] [place] [address] Care Team Providers Care Plycor Operator Name Role Phone None, Provider Primary Care Provider Unavailabl e Reason for Visit * Reason Comments Back Pain Encounter Details Date Type Department Care Team (Latest Contact Info) Description 02/09/2017 10:20 EDT - 02/09/2017 13:27 EDT Hospital Encounter [facility] Ur[facility] - [address] [address] Franco Ortiz MD [address] [place] [phone] Unknown, Provider, Acute right-sided thoracic back pain (Primary Dx) Discharge Disposition: Home or Self [...] Sign Reading Time Taken Comments Blood Pressure 128/60 02/09/2017 1059 EDT Pulse 72 02/09/2017 1059 EDT Temperature 37.1 ??C (98.8 ??F) 02/09/2017 1059 EDT Respiratory Rate 18 02/09/2017 1059 EDT Oxygen Saturation - - Inhaled Oxygen [...] this encounter Discharge Instructions * Discharge Instructions* Franco Ortiz MD - 02/09/2017 13:21 EDT Heat. Tylenol and ibuprofen as discussed. Muscle relaxant (cyclobenzaprine). Consider PT (or chiropractor) if not improving. documented in this encounter Medications at Time [...] 02/09/2017 7 documented as of this encounter Ordered Prescriptions Prescription Sig Dispense Quantity Refills Last Filled Start Date End Date cyclobenzaprine (FLEXERIL) 5 mg tablet Take 1-2 Tabs by mouth 3 times daily as needed for Muscle Spasms. 20 Tab 02/09/2017 08/21/2017 documented in this encounter Discharge Disposition Disposition Code Departure Means Destination Home or Self Care Walk-out Home documented in this encounter ED Notes * Franco Ortiz MD - 02/09/2017 1258 EDT Images from the original note were not included. DOS: 02/09/2017 Chief Complaint Patient presents with ??? Back Pain The patient is a 26 y.o. female who presents today with Back Pain HPI Comments: Cc upper right back pain Began January 27 with awkward placement of 30 lb infant into car seat. Has had similar issues in past and was gradually resolving as usual until 3-4 days, lost balance on last couple steps at home with near fall twisting movement, with exacerbation of the pre existing and improving pain. No radiation of pain down arms. No numbness or tingling. Heat and ibuprofen help some. The ibuprofen helps but wears off. Taking 600 mg. The history is provided by the patient. Back Pain Associated symptoms: no chest pain, no fever, no numbness and no weakness Review of Systems Constitutional: Negative for chills and fever. Respiratory: Negative for cough and shortness of breath. Cardiovascular: Negative for chest pain. Gastrointestinal: Negative for nausea and vomiting. Musculoskeletal: Positive for back pain. Negative for neck pain. Skin: Negative for wound. Neurological: Negative for weakness and numbness. No current facility-administered medications for this encounter. Current Outpatient Prescriptions Medication Sig Dispense Refill ??? acetaminophen (TYLENOL) 500 mg tablet Take 2 Tabs by mouth every 6 hours (Patient not taking: Reported on 02/09/2017) ??? albuterol 90 mcg/actuation inhaler Inhale 2 Puffs as directed every 4 hours. (Patient not taking: Reported on 02/09/2017) 1 Inhaler 0 ??? cyclobenzaprine (FLEXERIL) 5 mg tablet Take 1-2 Tabs by mouth 3 times daily as needed for Muscle Spasms. 20 Tab 0 ??? ibuprofen (MOTRIN) 600 mg tablet Take 1 Tab by mouth every 6 hours 30 Tab 2 ??? inhalational spacing device (BREATHERITE MDI SPACER) Use with a metered dose inhaler, as directed. May be dispensed with mask as appropriate.. (Patient not taking: Reported on 02/09/2017) 1 Each 0 ??? multivitamin vit-iron fumarate-FA (STUARTNATAL) 27 mg iron- 1 mg tablet tablet Take 1 Tab by mouth daily. Reported on 02/09/2017 Allergies Allergen Reactions ??? Imitrex [Sumatriptan Succinate] Shortness Of Breath Patient Active Problem List Diagnosis Date Noted ??? Encounter for supervision of normal first in third trimester 11/25/2015 Past Medical History: Diagnosis Date ??? Anxiety, generalized Ativan intermittently during ??? Pelvic floor dysfunction Social History Substance Use Topics ??? Smoking status: Never Smoker ??? Smokeless tobacco: Never Used ??? Alcohol use No History reviewed. No pertinent family history. BP 128/60 Pulse 72 Temp 98.8 ??F (37.1 ??C) Resp 18 Physical Exam Constitutional: She is oriented to person, place, and time. She appears well- developed and well-nourished. No distress. HENT: Head: Normocephalic and atraumatic. Eyes: Conjunctivae are normal. Neck: Normal range of motion. Neck supple. Pulmonary/Chest: Effort normal. No respiratory distress. Musculoskeletal: Normal range of motion. Cervical back: She exhibits tenderness. She exhibits no edema. Back: No erythema, edema or ecchymosis. No rash. No cspine tenderness. Neurological: She is alert and oriented to person, place, and time. Skin: Skin is warm and dry. She is not diaphoretic. Psychiatric: She has a normal mood and affect. Her behavior is normal. Consult orders: None PCP: Provider None No results found for this visit on 02/09/17. Radiology orders: None Imaging Results None No orders to display Relevant Data Procedures URGENT CARE COURSE A medical screening exam was performed. ASSESSMENT AND PLAN Final diagnoses: Acute right-sided thoracic back pain Heat. Flexeril. Stretching. Encouraged PT is not improving. Reviewed symptomatic treatment and indications for follow up. See discharge instructions. No supervision required. DISPOSITION: Discharged The patient's pain was managed to an adequate level weighing risk vs. benefit of further medications. Upon departure from [facility], the patient's pain was 7 on a zero to ten scale. Condition at departure from the [facility] : Stable [facility] 02/22/2017 12:37 * Keeley Giles RN - 02/09/2017 1111 EDT 26 yo presents with c/o back pain. Onset 01-27-17 when she was placing her 30 lb in toddler in car seat, twisting motion, felt sharp pain to right thoracic back. Improved over the following few days . On 02-05-17,missed a step going down stairs and restrained back. Pain at a 7/10. Unable to focusat work , movement increases pain to an 8 or 9/10. Occasionally radiating to low back. Denies shortness of breath. Has tired ice, heat ( works well), and lidocaine patches (currently in place). Ibuprofen 600 mg last at 0630 this am. documented in this encounter Plan of Treatment Upcoming Encounters Date Type Department Care Team (Late st Contact Info) Description 11/18/2024 8:15 EST Office Visit [facility] Pelvic Medicine and Reconstructive Surgery - Medical Office Building [facility] [place] [facility] [address] [place] [phone] Julia Terrell PA-C [address] [facility] [address], [address] [place] [phone] 11/25/2024 8:00 EST Rehab Therapy Visit [facility] Rehabilitation Therapy - Medical Office Building [address] [place] [address] Cira Jackson, DPT [address] [place] [address], [facility], [address] [place] [phone] 12/02/2024 8:00 EST Rehab Therapy Visit [facility] Rehabilitation [facility] - Medical Office Building [address] [place] [address] Cira Jackson, DPT [address] [place] [address], [address] [place] [phone] 12/09/2024 8:00 EST Rehab Therapy Visit [facility] Rehabilitation [facility] - Medical Office Building [address] [place] [id number] Cira Jackson, DPT [address] [place] [address], [address] [place] [phone] 12/16/2024 9:00 EST Rehab Therapy Visit [facility] Rehabilitation Therapy - Medical Office Building [address] [place] [id number] Cira Jackson, DPT [address] [place] [address], [address] [place] [phone] 12/23/2024 9:00 EST Rehab Therapy Visit [facility] Rehabilitation Therapy - Medical Office Building [address] [place] [id number] Cira Jackson, DPT [address] [facility], [address] [place] [phone] documented as of this encounter Visit Diagnoses Diagnosis Acute right-sided thoracic back pain- Primary documented in this encounter Discontinued Medications Medication Sig Discontinue Reason Start Date End Da te HYDROmorphone (DILAUDID) 2 mg tablet Take 1 Tab by mouth every 4 hours as needed for Pain Daily Max: 12 mg Therapy completed 11/29/2015 02/09/2017 HYDROmorphone (DILAUDID) 2 mg tablet Take 1 Tab by mouth every 4 hours Daily Max: 12 mg Therapy completed 11/29/2015 02/09/2017 docusate sodium (COLACE) 100 mg capsule Take 1 Cap by mouth 2 times daily as needed for Constipation Therapy completed 11/28/2015 02/09/2017 documented as of this encounter Care Teams [employer] Operator Relationship Specialty Start Date End Date None, Provider PCP - General 06/25/14 08/06/23 documented as of this encounter
--- OUTSIDE RECORDS SUMMARY | 2024-11-10 02:18 | XMS_ITS | Encounter Summary ---
Author Organization [facility] Address [address] [place] [address] Care Team Providers Care Nutter Up Name Role Phone None, Provider Primary Care Provider Unavailabl e Reason for Referral * (Routine) - Closed Specialty Diagnoses / Procedures Referred By Contac t Referred To Contact Greer Seay MD [address] [place] [id number] Phone: tel: fax: Referral ID Status Reason Start Date Expiration Date V isits Requested Visits Authorized [id number] Closed Specialty Services Required 11/28/2015 1 1 Comments See your program strategist in 2 and 6 weeks. Please call for an appointment. Reason for Visit * Reason Comments Contractions onset of ctx q 10 mi nutes at 0700 this morning Encounter Details Date Type Department Care Team (Late st Contact Info) Description 11/25/2015 12:20 EST - 11/29/2015 16:30 EST Hospital Encounter [facility] [address] [place] [id number] Joe Chakraborty MD [address] [place] [phone] Kim Waddell MD [address] [place] [phone] Encounter for supervision of normal first in third trimester (Primary Dx) Discharge Disposition: Home or Self [...] Sign Reading Time Taken Comments Blood Pressure 118/74 11/29/2015 0813 EST Pulse - - Temperature 36.9 ??C (98.4 ??F) 11/29/2015 0813 EST Respiratory Rate 18 11/29/2015 0813 EST Oxygen Saturation 98% 11/29/2015 0813 EST Inhaled Oxygen Concentration - - Weight 73.5 kg (162 lb 0.6 oz) 11/25/[address] Height 162.6 cm (5' 4.02) 11/25/2015 1307 EST Body Mass Index 27.8 11/25/2015 1307 EST documented in this encounter Functional Status [...] Elizabeth RN documented in this encounter Discharge Summaries * Geena, Greer Grubbs MD - 11/26/2015 0611 EST Department of REQUIREMENTS ANALYST Maternal Discharge Summary Information for the patient's : Irvin Lynn [[id number]] Irvin Lynn Maternal Name: Mine Lynn : 1990 Attending: Kim aWddell MD Admission: 11/25/2015 Discharge: 11/29/2015 Reason for Admission: Admission indication: Term labor/ROM Delivery Indications: Maternal Indications for delivery: Labor Indication for delivery: Not applicable Principal Procedure: Vaginal, Operative Secondary Procedures: None Hospital Course: Mine Lynn is a 25 year old who presented to L&D at 39+5 with contractions. She had an epidural placed, was AROMed for clear fluid and progressed to complete. Shortly after she was noted to be febrile and tachycardic and ampicillin and gentamycin were started for chorioamnionitis. While pushing, tachycardia to the low 200s was noted and a vacuum was used tofacilitate delivery. The vacuum was applied at 4+ station and delivery occurred in 1 pull with no pop-offs. A second degree midline perineal laceration with partial capsule tear was noted and repaired with good hemostasis. The patient tolerated the procedure well and her went to the term nursery. The patient's course was complicated by significant labial swelling and coccyx pain. Thelabia and vagina were examined; There was no evidence of a hematoma. The swelling improved with iceand pain control. The coccyx pain was much like pain she had experienced during , althoughmay have been related to the VAVD, therefore her symptoms were managed with narcotics, ibuprofen, and heat. She otherwise recovered well with stable vital signs. She completed a 48hr course of ampicillin and gentamicin for chorioamnionitis and was afebrile throughout her course. She tolerated a regular diet, ambulated, and voided independently and was subsequently discharged home on PPD #3 with instructions to see her OB provider in the office at 2 and 6 weeks. Hospital Problems: Active Hospital Problems Diagnosis Date Noted ??? *Encounter for supervision of normal first in third trimester 11/25/2015 Allergies: Imitrex Medications during current : Prescriptions prior to admission Medication Sig Dispense Refill Last Dose ??? albuterol 90 mcg/actuation inhaler Inhale 2 Puffs as directed every 4 hours. 1 Inhaler 0 Past Week ??? [DISCONTINUED] DIAZepam (VALIUM) 2 mg tablet Take 1-2 Tabs by mouth every 8 hours as needed (for spasm). 20 Tab 0 Past Month ??? [DISCONTINUED] guaiFENesin (ROBITUSSIN) 100 mg/5 mL liquid Take 200 mg by mouth every 4 hours. 08/10/2014 ??? [DISCONTINUED] guaifenesin-codeine (GUAIFENESIN AC) 100-10 mg/5 mL liquid Take 5 mL by mouth atbedtime as needed for Cough. 120 mL 0 ??? [DISCONTINUED] HYDROCODONE/ACETAMINOPHEN (VICODIN ORAL) Take 1 Tab by mouth as needed Past Week ??? [DISCONTINUED] ibuprofen (MOTRIN) 200 mg tablet Take 600 mg by mouth every 6 hours. 08/10/2014 ??? inhalational spacing device (BREATHERITE MDI SPACER) Use with a metered dose inhaler, as directed. May be dispensed with mask as appropriate.. 1 Each 0 Past Week ??? multivitamin vit-iron fumarate-FA (STUARTNATAL) 27 mg iron- 1 mg tablet tablet Take 1 Tab by mouth daily Past Week ??? [DISCONTINUED] PSEUDOEPHEDRINE HCL (SUDAFED 12 HOUR ORAL) Take by mouth. 08/09/2014 LABOR INFORMATION Labor Onset: Spontaneous Labor Analgesia: Epidural, Amniotic Fluid Color: Jennings Duration Rupture of Membranes: hours minutes DELIVERY INFORMATION Vaginal, Operative ; Delivery / Repair Anesthesia: Epidural, EBL: 400.00 Placenta: Method: Controlled Cord Traction Labor and Delivery Complications and/or Procedures: None INFORMATION Date: 11/26/2015 Time: 225 Weight: 4142 g (9 lb 2.1 oz) Sex: male Apgars: 8 9 Immunizations indicated : Rhogam Clinical Issues Needing Follow-up: Pain management: Patient sent home with Dilaudid #20, ibuprofen, and tylenol. Discussed icing perineum and sitz baths at home. Patient will follow-up in clinic in 2 weeks and if coccyx pain is not improved and/or she is still requiring narcotics for pain management, will likely need PT consult. Contraception Plan: Would like to restart OCPs; Will discuss with provider at visit Results Pending at Discharge: Test results still pending from this admission None Follow-Up Appointments and Procedures Recommended to Patient: Follow-up appointments and procedures You should follow up with your Dolly Driver See your program strategist in 2 and 6 weeks. Please call for an appointment. Authorizing Provider: Greer Seay MD Discharge Medications: START taking these medications Sig acetaminophen 500 mg tablet Commonly known as: TYLENOL 1,000 mg, oral, EVERY 6 HOURS docusate sodium 100 mg capsule Commonly known as: COLACE 100 mg, oral, 2 TIMES DAILY PRN * HYDROmorphone 2 mg tablet Commonly known as: DILAUDID 2 mg, oral, EVERY 4 HOURS * HYDROmorphone 2 mg tablet Commonly known as: DILAUDID 2 mg, oral, EVERY 4 HOURS PRN ibuprofen 600 mg tablet Commonly known as: MOTRIN 600 mg, oral, EVERY 6 HOURS * Notice: This list has 2 medication(s) that are the same as other medications prescribed for you. Read the directions carefully, and ask your doctor or other care provider to review them with you. CONTINUE taking these medications Sig albuterol 90 mcg/actuation inhaler 2 Puffs, inhalation, EVERY 4 HOURS multivitamin vit-iron fumarate-FA 27 mg iron- 1 mg tablet tablet Commonly known as: STUARTNATAL 1 Tab, oral, DAILY OTHER medications on file Sig inhalational spacing device Commonly known as: BREATHERITE MDI SPACER Use with a metered dose inhaler, as directed. May be dispensed with mask as appropriate. Condition at Discharge: Good Discharge Disposition: To boarder status Greer Seay MD 11/29/2015 9:30 Cosigned by Kim Waddell MD at 12/09/2015 13:10 EST documented in this encounter Medications at [...] Date HYDROmorphone (DILAUDID) 2 mg tablet Take 1 Tab by mouth every 4 hours as needed for Pain Daily Max: 12 mg 15 Tab 0 11/29/2015 7 ibuprofen (MOTRIN) 600 mg tablet Take 1 Tab by mouth every 6 hours 30 Tab 2 11/29/2015 7 HYDROmorphone (DILAUDID) 2 mg tablet Take 1 Tab by mouth every 4 hours Daily Max: 12 mg 5 Tab 0 11/29/2015 7 ibuprofen (MOTRIN) 600 mg tablet Take 1 Tab by mouth every 6 hours 11/29/2015 6 acetaminophen (TYLENOL) 500 mg tablet Take 2 Tabs by mouth every 6 hours 11/29/2015 7 ibuprofen (MOTRIN) 400 mg tablet Take 1 Tab by mouth every 4 hours as needed for Pain 11/28/2015 6 HYDROmorphone (DILAUDID) 2 mg tablet Take 1-2 Tabs by mouth every 4 hours as needed for Pain Daily Max: 24 mg 15 Tab 0 11/28/2015 6 docusate sodium (COLACE) 100 mg capsule Take 1 Cap by mouth 2 times daily as needed for Constipation 11/28/2015 7 acetaminophen (TYLENOL) 325 mg tablet Take 1-2 Tabs by mouth every 4 hours as needed for Pain 11/28/2015 6 documented in this encounter Discharge Disposition Disposition Code Departure Means Destination Home or Self Care documented in this encounter Progress Notes * Gunner Lozano - 11/29/2015 0715 EST Progress Note Chief Complaint: PPD#3 s/p VAVD Subjective: Doing better today, labial swelling much improved. Icing perineum, which helps. Coccyx pain improving with ambulation and pain meds. Tolerating regular diet without nausea/vomiting, ambulating and voiding independently without difficulty. Lochia moderate. Breast feeding going well. The patient denies CP/SOB/N/V/WALTON/Dizziness/F/C/LE pain. Objective: BP 120/67 mmHg Temp(Src) 37.1 ??C (98.8 ??F) (Temporal) Resp 16 Ht 162.6 cm (64.02) Wt 73.5 kg (162 lb 0.6 oz) BMI 27.80 kg/m2 SpO2 98% LMP 02/20/2015 (Exact Date) ? Unknown No intake or output data in the 24 hours ending 11/29/15 0716 Gen: NAD Resp: Non-labored respirations CV: Pulse regular Abd: Soft, NT, ND, fundus firm @ 3 cm below umbilicus Ext: WWP, 1+ PE Vulva: swollen R>L significantly improved from yesterday, pink, no evidence of hematoma, ice pack in place Assessment/Plan: Mine Lynn is a 25 y.o. PPD#3 s/p VAVD at 39w6d with course c/b labial swelling and coccyx pain. Patient is recovering well, AVSS. -Continue routine post- care. Encourage ambulation, PO intake, support BF. -Pain: Improved today; Will discharge with Rx for Dilaudid with tylenol and ibuprofen PRN, heat/icePRN. -Chorioamnionitis: Afebrile, last temp 38.5 @ 02:44 on 11/26; Completed amp/gent x48hrs -Labial swelling: Much improved from check yesterday; No evidence of hematoma on vaginal exam; Continue ibuprofen, and tylenol PRN, ice on perineum; Discussed sitz baths at home. -Contraception: Would like to restart OCPs, will get Rx at visit - depression: Discussed signs and symptoms, patient expressed understanding. -Male infant, desires circumcision -RI/ -Rh- status: Infant Rh+; Rhogam ordered to be given prior to d/c -Likely d/c to boarder status today as still receiving abx Greer Seay MD 11/29/2015 7:16 I have seen and evaluated this patient for discharge. Instructed. Motrin 600mg and Tylenol 1000mg PO Q6H for next few days with Dilaudid 2mg PO Q4H prn with goal to extend interval between narcotic dosing and be off narcotic in 3-4 days. F/U in office in 2 and 6 weeks. Gunner Lozano MD 11/29/2015 9:40 * Cleve Cheri - 11/29/2015 0653 EST Mine is a 25 yo who is PPD#3 from a VAVD. S: Mine continues to complain of coccyx pain but states that it seems to be improving a little nowthat she is more mobile. Standing and laying horizontal make the pain better. Her labial swelling is improved and she continues to ice intermittently. She has minimal lochia and is urinating well. She is passing flatus but has not had a BM yet. She is doing better with and is currently using a wire with formula to work on [employer]. She denies headache, dizziness, SOB, chest pain, nausea, and vomiting. She has had some mild lightheadedness when standing quickly. ROS was alsopositive for anxiety which is normal for her. O: VS: BP: 120/67, RR 16, HR 94, T 37.1 Cardio: RRR Resp: CTAB Abd: Non-tender, non-distended, fundus 1-2cm below umbilicus. : Mild labial swelling, symmetric, no color discoloration A: Mine is a 25 yo PPD#3 from a VAVD for tachycardia who s/p 48 hrs of abx fo rchorioamnionitis who is afebrile, hemodynamically stable, and recovering appropriately from delivery. 1. Labial swelling and pain- improved -Encourage ice packs -Discourage hydromorphone 2mg Q4 PRN for pain -Acetaminophen 325-650mg Q4 PRN for pain -Ibuprofen 400mg Q4 PRN 2. Chorioamnionitis- resolved 3. FENGI -Regular diet -Colace and mineral oil scheduled -TUMS PRN for GERD Cheri Poon, MS3 Pager #[phone] * Mei Bello MD - 11/28/20152014 EST Event Note Called to evaluate Mine for lightheadedness and dizziness. Subjective: Mine states that she has had 3 episodes of lightheadedness today at 7am, 6pm, and 7pm, each lasting less than 10 minutes. The first two were associated with postural changes and the third occurred after she took a shower and sat down in her bed. Each episode was associated with flushing, mild sweating, and lightheadedness, no sensation of the room spinning. No history of vertigo, though has had episodes of lightheadedness throughout this . Post day 2 after a vacuum assisted vaginal delivery (1 pull), second degree tear repaired with good hemostasis. Post course has been complicated by significant labial edema that held up her discharge today though is starting to improve. Has had good PO intake. Objective: VS: BP 120/76 mmHg Temp(Src) 36.9 ??C (98.4 ??F) (Temporal) Resp 18 Physical Exam: comfortable, lying on bed eating dinner, large glass of water by bedside. RRR, no MRG, lungs CTABL. Extremities with 2+ pitting edema in bilateral feet, 1+ to trace in lower legs. Vulva with significant swelling bilaterally, pink, no evidence of hematoma, tender to light touch throughout. Assessment/Plan: Mine Lynn is a 25 y.o. PPD#2 s/p VAVD at 39w6d. Post course significant for labial edema that has improved since delivery. Episodes of lightheadedness likely vasovagal, as they are occuring with positional changes or after shower. Do not suspect significant bleed at this point given lack of hematoma on exam, stable vitals, and episodic nature of dizziness. Will continue to monitor, encourage PO intake, counseled on slow position changes and walking with assistance. Would also consider one time dose of lasix to help labial and pedal edema if patient continues to be uncomfortable. Mei Bello MD 11/28/2015 20:35 * Gunner Lozano - 11/28/2015 0744 EST Progress Note Chief Complaint: PPD#2 s/p VAVD Subjective: Doing ok, continued to experience labial swelling since delivery that is causing pain. Intermittently icing perineum, which helps. She is also reporting coccyx pain, but she reports it isexactly the same as the pain she had during . Improved with pain meds. Tolerating regular diet without nausea/vomiting, ambulating and voiding independently without difficulty. Lochia moderate. Breast feeding going well. The patient denies CP/SOB/N/V/WALTON/Dizziness/F/C/LE pain. Objective: BP 110/51 mmHg Temp(Src) 36.9 ??C (98.4 ??F) (Temporal) Resp 16 Ht 162.6 cm (64.02) Wt 73.5 kg (162 lb 0.6 oz) BMI 27.80 kg/m2 SpO2 98% LMP 02/20/2015 (Exact Date) ? Unknown Intake/Output Summary (Last 24 hours) at 11/28/15 0744 Last data filed at 11/27/15 1200 Gross per 24 hour Intake 1350 ml Output 1200 ml Net 150 ml Gen: NAD Resp: Non-labored respirations CV: Pulse regular Abd: Soft, NT, ND, fundus firm @ 3 cm below umbilicus Ext: WWP, 1+ PE Vulva: symmetrically swollen but much improved from yesterday, pink, no evidence of hematoma, ice pack in place Assessment/Plan: Mine Lynn is a 25 y.o. PPD#2 s/p VAVD at 39w6d. Patient is recovering well, AVSS. -Continue routine post- care. Encourage ambulation, PO intake, support BF. -Pain: Patient continues to have multiple pain complaints; Will continue Dilaudid, tylenol, and ibuprofen PRN, heat/ice PRN. -Chorioamnionitis: Afebrile, last temp 38.5 @ 02:44 on 11/26; Completed amp/gent x48hrs -Labial swelling: Improved from check yesterday; No evidence of hematoma on vaginal exam; Continue Dilaudid, ibuprofen, and tylenol PRN, ice on perineum; Discussed sitz baths at home. -Contraception: Would like to restart OCPs, will get Rx at visit - depression: Discussed signs and symptoms, patient expressed understanding. -Male , desires circumcision -RI/ -Rh- status: Infant Rh+; Rhogam ordered to be given prior to d/c -Likely d/c to boarder status today vs tomorrow as still receiving abx Greer Seay MD 11/28/2015 7:44 Pt seen and examined. Not ready for d/c due to significant labial edema, likely coccyx injury during delivery making it difficult for pt to ambulate independently. Will change analgesics to tylenol 1000mg PO Q6H with motrin 600mg PO Q6H and decrease dilaudid to 2 mg PO Q4H prn. Continue ice to perineum. Gunner Lozano MD 11/28/2015 11:39 * Cheri Poon - 11/28/2015 0629 EST Mine Lynn is a 25 yo PPD#2 from a VAVD for tachycardia. Labor was complicated due to maternal fever & tachycardia and she was treated empirically with amp and gent for chorioamnionitis. Following labor she has a second degree perineal laceration repaired w/o complication. S: Mine is complaining of 6/10 coccyx pain this morning. She states that positioning improves the pain. She has also noted some pain in her suprapubic region which feels like mini contractions. She continues to ice her labia/perineum intermittently. She thinkss the labial swelling has improved si nce yesterday. She is urinating without difficulty, has minimal lochia, is passing flatus but has not had a BM since labor. She is tolerating PO. She denies headache, dizziness, light headness, nausea, vomiting, chest pain, SOB, and LE pain. She states that she has been struggling with since last night and is hoping for a consult in the meantime she may try some formula tosee if he will latch with a bottle. She plans to start OCPs at her post- visit. She is aware of her increased risk for post- depression due to her history of anxiety. O:BP 110/51 mmHg Temp(Src) 36.9 ??C (98.4 ??F) (Temporal) Resp 16 Ht 162.6 cm (64.02) Wt 73.5 kg (162 lb 0.6 oz) BMI 27.80 kg/m2 SpO2 98% LMP 02/20/2015 (Exact Date) ? Unknown VS: BP: 110/55, HR 87, R16, T36.9C Cardio: RRR Resp: CTAB Abdomen: Soft, non-tender, non-distended, fundus firm and -1. Ext: No edema, no calf tenderness, 2+DP pulses. : Labial swelling, symmetric, no color discoloration Urine Output:?? -2100 ml/ 24 hours Assessment/Plan: Mine Lynn is a 25 yo PPD#2 from a VAVD for tachycardia who is being treated for chorioamnionitis who is afebrile, hemodynamically stable, and recovering appropriately from delivery. 1. Labial swelling and pain -Encourage ice packs -Discourage hydromorphone 2mg Q4 PRN for pain -Acetaminophen 325-650mg Q4 PRN for pain -Ibuprofen 400mg Q4 PRN 2. Chorioamnionitis. ?? -Discontinue abx this morning after total of 48hrs given -Continue to monitor clinically for signs of infection 3. FENGI -Regular diet -Colace and mineral oil scheduled -TUMS PRN for GERD - multivitamin1 tab oral 4. Disposition. -Discharge from service today -Mine will stay on B7 until baby Darren is discharged. Cheri Poon, MS3 Pager #[phone] * Sandra Gordon MD - 11/27/201528 EST Progress Note Chief Complaint: PPD#1 s/p VAVD Subjective: Doing ok, has been experiencing labial swelling since delivery that is causing 6-7/10 pain. Intermittently icing perineum, which somewhat helps. Tolerating regular diet without nausea/vomiting, ambulating and voiding independently without difficulty. Lochia moderate. Breast feeding going well. The patient denies CP/SOB/N/V/WALTON/Dizziness/F/C/LE pain. Objective: BP 106/60 mmHg Temp(Src) 36.6 ??C (97.9 ??F) (Temporal) Resp 16 Ht 162.6 cm (64.02) Wt 73.5 kg (162 lb 0.6 oz) BMI 27.80 kg/m2 SpO2 99% LMP 02/20/2015 (Exact Date) ? Unknown Intake/Output Summary (Last 24 hours) at 11/27/15 07 Last data filed at 11/26/15 2200 Gross per 24 hour Intake 0 ml Output 1250 ml Net -1250 ml Gen: NAD Resp: Non-labored respirations CV: Pulse regular Abd: Soft, NT, ND, fundus firm @ 3 cm below umbilicus Ext: WWP, 1+ PE Vulva: symmetrically swollen, pink, no evidence of hematoma, ice pack in place Assessment/Plan: Mine Lynn is a 25 y.o. PPD#1 s/p VAVD at 39w6d. Patient is recovering well, AVSS. -Continue routine post- care. Continue current pain regimen. Encourage ambulation, PO intake,support BF. -Chorioamnionitis: Afebrile, last temp 38.5 @ 02:44 on 11/26; Will continue amp/gent 48hrs since lastfever -Labial swelling: Stable from check yesterday; No evidence of hematoma on vaginal exam overnight; Continue Dilaudid, ibuprofen, and tylenol PRN, ice on perineum; Discussed sitz baths at home. -Contraception: Would like to restart OCPs, will get Rx at visit - depression: Discussed signs and symptoms, handout given, patient expressed understanding. -Male infant, desires circumcision -RI/ -Rh- status: Infant Rh+; Rhogam ordered to be given prior to d/c -Likely d/c home PPD#2 Greer Seay MD 11/27/2015 7:29 I have seen the patient and agree with above. Pain: currently on narcotic/tylenol and motrin q 4 hours. Vulvar very swollen. Exam this am did notshow a hematoma. Nursing feels pt doing better: voiding, using ice. Plan decrease meds tomorrow. Chorio: complete 48 hrs afeb. 2300 tonight. PIERCEanson * Cheri Poon - 11/27/2015 0648 EST Mine Lynn is a 25 yo PPD#1 from a VAVD for tachycardia. Labor was complicated due to maternal fever & tachycardia and she was treated empirically with amp and gent for chorioamnionitis. Following labor she has a second degree perineal laceration repaired w/o complication. S: Mine is complaining of 7/10 labia pain this morning. She did just receive pain medication. She continues to ice her labia/perineum intermittently. She is urinating without difficulty, has minimallochia, is passing flatus but has not had a BM since labor. She is tolerating PO. She denies headache, dizziness, light headness, nausea, vomiting, chest pain, SOB, and LE pain. She continues to workon and thinks she is doing ok but would like a consult. She plans to start OCPs at her post- visit. She is aware of her increased risk for post- depression due to her history of anxiety. O: VS: BP: 106/60, HR 91, R16, T36.6C Cardio: RRR Resp: CTAB Abdomen: Soft, non-tender, non-distended, fundus firm. Ext: No edema, no calf tenderness, 2+DP pulses. : Bilateral, symmetrical labial swelling, no discoloration, no induration. Urine Output: -1250 ml/ 24 hours Assessment/Plan: Mine Lynn is a 25 yo PPD#1 from a VAVD for tachycardia who is being treated for chorioamnionitis who is afebrile, hemodynamically stable, and recovering appropriately from delivery. 1. Labial swelling and pain -Encourage ice packs -Hydromorphone 2mg Q4 PRN for pain -Acetaminophen 325-650mg Q4 PRN for pain -Ibuprofen 400mg Q4 PRN 2. Chorioamnionitis. -Continue abx for a total of 48hrs -Continue to monitor clinically for signs of infection 3. FENGI -Regular diet -Colace and mineral oil scheduled -TUMS PRN for GERD - multivitamin1 tab oral Cheri Poon, MS3 Pager #[phone] * Mei Goodwin MD - 11/27/2015 1550 EST R1 OB Note S: Called to see patient for increasing labial swelling and pain concerning for forming hematoma. Mine reports her labial pain is constant and not relieved by her dilaudid. Her lochia is moderate without large clots. She is ambulating well and denies dizziness. She urinated before exam and reportsthat she felt she could not fully empty her bladder because she could not concentrate due to the pain. O: Filed Vitals: 11/26/15 0746 11/26/15 1640 11/27/15 0100 11/27/15 0417 BP: 108/58 106/58 125/74 106/60 Temp: 36.5 ??C (97.7 ??F) 36.5 ??C (97.7 ??F) 36.6 ??C (97.9 ??F) 36.6 ??C (97.9 ??F) TempSrc: Tympanic Temporal Temporal Temporal Resp: 18 18 20 16 Height: Weight: SpO2: 97% 98% 99% 99% UOP: multiple voids recorded Gen: mild distress, teary-eyed Pelvic: bilaterally edematous labia majora and minora, left slightly more edematous than right but overall symmetric. No induration or discoloration. Vaginal exam reveals no firm mass concerning for hematoma. Perineal laceration repair intact. A/P: 25 year old PPD#1 s/p VAVD complicated by chorioamnionitis with sacrum discomfort and labial swelling. No suspicion for hematoma at this time. - acetaminophen, ibuprofen, and dilaudid for breakthrough pain. Will increase dilaudid to 2-4mg q4hPRN. - encourage ice packs to the perineum to decrease edema. - strict I/Os; low threshold for straight cath versus doan if UOP is low or if she continues to feel she cannot fully empty her bladder. - continue antibiotics for 48 hours . - continue remainder of routine care. Seen with and discussed with Dr. Mauro. Mei Goodwin MD PGY-1 [facility] Obstetrics and Gynecology Pager: [phone] * Alma Florentino MD - 11/26/2015 1430 EST R2 Progress Note S: Feeling very uncomfortable. She has had sacrum pain that consistent with prior to delivery. She had an operative vaginal delivery with a 3rd degree laceration that was repaired. She continues to have pain and swelling. She reports that her bleeding has slowed. She is declining ice at this time and wants something to help her sleep. O: BP 108/58 mmHg Temp(Src) 36.5 ??C (97.7 ??F) (Tympanic) Resp 18 Ht 162.6 cm (64.02) Wt 73.5 kg (162 lb 0.6 oz) BMI 27.80 kg/m2 SpO2 97% LMP 02/20/2015 (Exact Date) ? Unknown Gen: No acute distress Abd: soft, nontender to palpation Perineum: Very swollen and edematous. No signs of purulence. Declined vaginal exam. A/P: Mine Lynn is a s/p VAVD complicated by chorioamnionitis with sacrum discomfort and labia swelling. Do not suspect hematoma of infection at this time time. Patient declined vaginal exam. Low threshold to perform vaginal exam for increasing vaginal pain to Assess for hematoma. Willproceed with symptomatic management at this time. -APAP, ibuprofen scheduled and dilaudid for breakthrough pain -Encouraged using ice for perineum, can rotate 20 min on and 40 min off. -Heat pack for sacrum. -Continue 48 hrs ax -mineral oil Alma Florentino M.D. PGY2 Pager [phone] * Sandra Gordon MD - 11/26/2015 0931 EST PPD O from vac del. Being treated for chorio. Baby with mom after eval in NICU. S: smiling and feels better now that labor is over O: BP 108/58 mmHg Temp(Src) 36.5 ??C (97.7 ??F) (Tympanic) Resp 18 Ht 162.6 cm (64.02) Wt 73.5 kg (162 lb 0.6 oz) BMI 27.80 kg/m2 SpO2 97% LMP 02/20/2015 (Exact Date) ? Unknown Gen: NAD Abd: soft, FF, slightly tender to palpation Ext: NT A/P: op vac deliv. Chorio. 1. Complete 48 hrs abx after last temp 2. 3rd degree: mineral oil ordered 3. Routine PP care as well. * Mei Goodwin MD - 11/25/2015 2331 EST L&D Progress Note Rh -/GBS - CC: IUP @ 39w5d, active labor S: Mine is comfortable with her epidural and has occasional rectal pressure but no urge to push. O: BP 101/87 mmHg Temp(Src) 38.4 ??C (101.1 ??F) (Oral) Resp 20 Ht 162.6 cm (64.02) Wt 73.5 kg (162 lb 0.6 oz) BMI 27.80 kg/m2 LMP 02/20/2015 (Exact Date) FHT: Baseline 140, mod variability, + accels, no decels; Category I tracing [place]: every 1.5-4 minutes, coupling SVE: 10/100/0 A/P: 25 y.o. @ 39w5d admitted for labor. Category I tracing. 1. Labor: s/p AROM at 1715 for clear fluid. IUPC placed and pitocin started after inadequate contractions noted. 2. FWB: Cat I FHT. Continuous EFM. 3. Maternal fever to 38.4 and tachycardia to 115: will treat for chorioamnionitis with ampicillin 2g q6h and gentamicin 1.5 mg/kg q8 hours 4. Pain: comfortable with epidural 5. PPH risk: low, CBC and BB hold 6. Global: Rh -, will collect cord blood at delivery, GBS - Mei Goodwin MD PGY-1 [facility] Obstetrics and Gynecology Pager: [phone] * Pao Maciel RN - 11/25/2015 2324 EST 2315: Report received from Eric Chang RN. Assumed care of patient. at 39w5d. Here with labor. IUPC in place. Epidural. 0/10 pain. Pitocin infusing at 9 mU/min. Pt lying on right side. Bloody show. febrile 38.4 2319: Complete/0 station. 2328: Dr Peacock in room. To start abx. 2334: Discussed vigorous, skin to skin and need for PEDS at delivery for chorio. Pt verbalizes understanding. 2344: repositioned far right side lying. NRB O2 at [address] 2347: Cold cloth to forehead and neck. 0010: repositioned to left side lying 0016: Increased pressure with contractions. 0020: +1 station Radha GODOY 0024: Doan cath removed - 250 cc urine, 0026: Started pushing. Dr Waddell, Dr Goodwin, MS Poon in room. PEDS aware of presence for delivery. 0050: NRB on between contractions. Tachy FHR 170 0108: Vomiting - 300 cc emesis 0120: Tylenol 650 mg po given for temp - 37.7 Dr Waddell aware. 0133: Vomiting - emesis 200 cc 0153: Vomiting - emesis 200 cc yellow 0156: Cat 2 FHT tachy, 190-200. 0159: Maternal HR 140/150s. LR bolus infusing [address] Waddell. 0202: IUPC removed. For vaccuum assisted delivery. PEDS paged. 2:04 vac on pressure on pull 0206- Head out . Vacc off. 0206- Delivery of live male. To warmer for peds to eval. 0215 Partial 3rd degree with repair. Katarzyna care provided. Ice pack in place. Warm blankets on. NB skin to skin with mom. 0230: Straight cath for 125 cc alexander clear urine. 0240: Epidural removed. Blue tip intact 0415: Pt c/o dizziness, lightheadedness when OOB to ambulate to bathroom. Back to bed. BP stable. Pt c/o 7/10 tailbone pain, pressure. periarea edematous, scant rubra.fundus firm, U-1. Dr Goodwin aware. Vaginal exam done by Dr Goodwin. No hematoma noted. Pt asking about pain medication. Dr Goodwin to page Dr Waddell. Awaiting call back. 0435: Dilaudid 2 mg po administered for 7/10 discomfort. 0442: Attempt OOB to bathroom. Pt feeling lightheaded when OOB. BP stable 116/59. HR 114 0454: Pt reports feeling much better, pain now 3/10. Transferred pt in bed to [place] [id number]. [facility] report/update given to RN. * Mei Goodwin MD - 11/25/20152106 EST L&D Progress Note Rh -/GBS - CC: IUP @ 39w5d, active labor S: Mine is comfortable with her epidural and her headache is improving with tylenol O: BP 116/64 mmHg Temp(Src) 37.1 ??C (98.8 ??F) (Tympanic) Resp 18 Ht 162.6 cm (64.02) Wt 73.5 kg (162 lb 0.6 oz) BMI 27.80 kg/m2 LMP 02/20/2015 (Exact Date) FHT: Baseline 140, mod variability, + accels, no decels; Category I tracing [place]: every 1.5-4 minutes, coupling SVE: /-[address] W[address]ell, IUPC placed A/P: 25 y.o. @ 39w5d admitted for labor. Category I tracing. 1. Labor: s/p AROM at 1715 for clear fluid. IUPC placed with inadequate contractions. Will start pitocin. 2. FWB: Cat I FHT. Continuous EFM. 3. Pain: comfortable with epidural 4. PPH risk: low, CBC and BB hold 5. Global: Rh -, will collect cord blood at delivery, GBS - Mei Goodwin MD PGY-1 [facility] Obstetrics and Gynecology Pager: [phone] Pitocin Bundle: Induction 39w5d EDC: Estimated Date of Delivery: 11/27/15 Indication: augmentation Prior Uterine Scar: no EFW: 7.5 lbs Assessment of Pelvic Adequacy: yes Presentation: cephalic, likely OP Christopher Score: 12 Active T&S? yes Informed Consent: yes Attending Concurs: yes * Mei Goodwin MD - 11/25/20151948 EST L&D Progress Note Rh -/GBS - CC: IUP @ 39w5d, active labor S: Mine is comfortable with her epidural but has a frontal headache. She occasionally has headaches but has not had one in several months. Denes s/sx of preE. O: BP 116/64 mmHg Temp(Src) 36.6 ??C (97.9 ??F) (Tympanic) Resp 18 Ht 162.6 cm (64.02) Wt 73.5 kg (162 lb 0.6 oz) BMI 27.80 kg/m2 LMP 02/20/2015 (Exact Date) FHT: Baseline 140, mod variability, + accels, no decels; Category I tracing [place]: every 2-4 minutes SVE: 7-8/90/0 A/P: 25 y.o. @ 39w5d admitted for labor. Category I tracing. 1. Labor: s/p AROM at 1715 for clear fluid. Making good cervical change. Anticipate . 2. FWB: Cat I FHT. Continuous EFM. 3. Pain: comfortable with epidural, will give tylenol for headache 4. PPH risk: low, CBC and BB hold 5. Global: Rh -, will collect cord blood at delivery, GBS - Mei Goodwin MD PGY-1 [facility] Obstetrics and Gynecology Pager: [phone] * Greer Seay MD - 11/25/2015 1726 EST L&D Progress Note Rh -/GBS - CC: IUP @ 39w5d, active labor S: Patient comfortable with epidural in place O: BP 116/70 mmHg Temp(Src) 36 ??C (96.8 ??F) (Tympanic) Resp 18 Ht 162.6 cm (64.02) Wt 73.5 kg (162 lb 0.6 oz) BMI 27.80 kg/m2 FHT: Baseline 135, moderate variability, + accels, - decels; Category I tracing [place]: Q2-3min SVE: 6/90/-2, soft, AROM with ?clear fluid, mostly bloody show A/P: 25 y.o. @ 39w5d in active labor. Category I tracing. -Labor: In active labor, s/p AROM with ?clear fluid although hard to tell because of significant bloody show; will continue to monitor fluid; Recheck in 2hrs or as clinically indicated; Anticipate . -FWB: Cat I tracing; Continuous EFM -Pain: Epidural in place -PPH risk: Low; CBC and BB hold -Global: GBS -, Rh-: will collect cord blood at delivery Discussed with Dr. Bairon Seay MD 11/25/2015 17:26 * Radha Castorena RN - 11/25/2015 1233 EST Chief Complaint Patient presents with ??? Contractions onset of ctx q 10 minutes at 0700 this morning, I've been leaking like discharge but no liquid fora few days, +FM, no vagnial bleeding I dont have asthma but I have been using my inhaler because sometimes I just feel I can't breath 13:01 IV placed and labs drawn from site. Anesthesia in with patient discussing epidural pain control 13:33 patient walking in mcdonald, monitoring D/C. Patient eating lunch. Dr. Seay aware 14:19 patient has returned to her bed 14:33 SVE 4 cm - 100%. Breathing with ctx. Patient is eating sandwich 1500 Patient walking in mcdonald with mother 15:49 Patient is in tub/shower 1555 patient sitting reverse on toilet 16:03 patient to birthing ball 16:26 patient requesting epidural 16:[address] patient on left side 17:20 patient much improved. SVE Dr. Seay SVE 6 cm 90% -2 17:26 patient c/o nausea 17:41 AROM for clear. Doan cath placed until pushing. Patient unable to void 18:43 patient sleeping, family at side 19:16 patient resting witheyes closed. Patient c/o WALTON x 30 minutes 19:41 SVE 7-8 cm. Patient medicated with tylenol for WALTON 20:32 positive improvement of WALTON with tylenol 20:52 Dr. Waddell with patient. SVE 7 cm, IUPC placed 21:01 to left side, IVF increased to 250 cc hr, 21:11 Pitocin infusing at 1 micro unit/hour O2 via mask in place 22:12 patient to SF ncomfortable returns to left side 23:08 patient resting on left side and position changed to right side 23:[address] Goodwin aware SVE complete documented in this encounter H&P Notes * Grainola, Greer Grubbs MD - 11/25/2015 0861 EST Department of Obstetrics History & Physical Admit Date: 11/25/2015 Chief Complaint Patient presents with ??? Contractions onset of ctx q 10 minutes at 0700 this morning Admission indication: Term labor/ROM Maternal transport/Outside delivery: No HPI: Mine Lynn is a 25 y.o. at 39w5d by LMP who presents in active labor. She reports that she woke up early this morning around 04:00 with contractions which started increasing in intensity. She was seen in clinic later in the morning and found to be 1cm/100% and visibly uncomfortable so she was sent to L&D. She reports good movement. No LOF or VB. This has been complicated by anxiety for which she has intermittently taken Ativan. She also experienced coccyx pain starting at 34wks for which she required Vicodin. Review of Systems: Negative except as noted above. Current Complications: Does patient have any current complications?: Yes Diabetes: None Hypertension: None Hematologic disorders: None Thyroid disease: None Psychiatric disease: Anxiety Multiple gestation: No, Turner Abnormal placentation/cord: None Alloimmunization: None Testing: Genetic screening: None Maternal/ imaging: First trimester US;Routine US Medication Exposure: Significant medication exposure: None Labs: Rh - / Antibody screen - / Rubella Imm / Varicella Imm / RPR NR / Gonorrhea Neg / Chlamydia Neg / Hepatitis B Neg / HIV Neg / 1hr GTT 138 / 3hr GTT 76/162/138/98 / GBS - Ultrasound Date GA EFW PAULETTE Anatomy Dopplers 07/10/2015 20+0 356g Normal Normal, ant placenta FOB History: Father of the baby medical history: Not significant OB History Para Term AB SAB TAB Ectopic Multiple Living 1 # Outcome Date GA Lbr Kashif/2nd Weight Sex Delivery Anes PTL Lv 1 Current Previous Complications: Has patient had any prior complications?: No Prior delivery: None Past Medical History Past Surgical History Past Medical History Diagnosis Date ??? Pelvic floor dysfunction ??? Anxiety, generalized Ativan intermittently during History reviewed. No pertinent past surgical history. Past Gynecological History Social History Non-contributory History Substance Use Topics ??? Smoking status: Never Smoker ??? Smokeless tobacco: Never Used ??? Alcohol Use: 1.5 oz/week 3 Not specified per week reports that she uses illicit drugs (Marijuana). Medications Allergies Prescriptions prior to admission Medication Sig Dispense Refill Last Dose ??? albuterol 90 mcg/actuation inhaler Inhale 2 Puffs as directed every 4 hours. 1 Inhaler 0 Past Week ??? [DISCONTINUED] DIAZepam (VALIUM) 2 mg tablet Take 1-2 Tabs by mouth every 8 hours as needed (for spasm). 20 Tab 0 Past Month ??? [DISCONTINUED] guaiFENesin (ROBITUSSIN) 100 mg/5 mL liquid Take 200 mg by mouth every 4 hours. 08/10/2014 ??? [DISCONTINUED] guaifenesin-codeine (GUAIFENESIN AC) 100-10 mg/5 mL liquid Take 5 mL by mouth atbedtime as needed for Cough. 120 mL 0 ??? [DISCONTINUED] HYDROCODONE/ACETAMINOPHEN (VICODIN ORAL) Take 1 Tab by mouth as needed Past Week ??? [DISCONTINUED] ibuprofen (MOTRIN) 200 mg tablet Take 600 mg by mouth every 6 hours. 08/10/2014 ??? inhalational spacing device (BREATHERITE MDI SPACER) Use with a metered dose inhaler, as directed. May be dispensed with mask as appropriate.. 1 Each 0 Past Week ??? multivitamin vit-iron fumarate-FA (STUARTNATAL) 27 mg iron- 1 mg tablet tablet Take 1 Tab by mouth daily Past Week ??? [DISCONTINUED] PSEUDOEPHEDRINE HCL (SUDAFED 12 HOUR ORAL) Take by mouth. 08/09/2014 Allergies Allergen Reactions ??? Imitrex [Sumatriptan Succinate] Shortness Of Breath Objective: Weights Weight : 73.5 kg (162 lb 0.6 oz) Patient Vitals for the past 8 hrs: BP Heart Rate Resp Temp 11/25/15 1715 117/68 mmHg 96 BPM - - 11/25/15 1705 116/70 mmHg 100 BPM 18 - 11/25/15 1700 124/66 mmHg 100 BPM - - 11/25/15 1659 122/70 mmHg 103 BPM 20 - 11/25/15 1654 130/77 mmHg 104 BPM 20 - 11/25/15 1500 134/65 mmHg 102 BPM 18 36 ??C (96.8 ??F) 11/25/15 1239 133/77 mmHg 106 BPM 16 35.8 ??C (96.4 ??F) General: NAD Cardiovascular: RRR Respiratory: CTAB Abdomen: Gravid, NT, EFW 7.5lbs by Rahul's Extremities: WWP, no edema Physical Lie: Longitudinal Presentation: Vertex Clinical EFW: 3.402 kg (7 lb 8 oz) FHT: Baseline 140, moderate variability, + accels, - decels; Cat I tracing. TOCO: Q2-3min SVE: 1cm/100% --> 2hrs later 4/100/-2 Assessment/Problems/Plan: Mine Lynn is a 25 y.o. at 39w5d by LMP presenting in active labor. Cat I tracing. -Admit to L&D. Place IV. -Labor: In active labor; Membranes intact; Will recheck in 2hrs or as clinically indicated; Anticipate . -FWB: Cat I tracing; Intermittent EFM -Anxiety: Has taken Ativan intermittently this ; At this time she is doing well but will continue to monitor anxiety; Hold benzos at this time. Patient plans to breastfeed?: Yes Breastmilk contraindication: None Planning: Prior uterine surgery: No candidate?: Not applicable Waterbirth planned: No Home : No Global hemorrhage risk: Low Rh -: Will collect cord blood at time of delivery GBS - Immunizations indicated : Rhogam Discussed with Dr. Waddell. Greer Seay MD 11/25/2015 18:07 Cosigned by Kim Waddlel MD at 11/25/2015 18:34 EST documented in this encounter Procedure Notes * Mei Goodwin MD - 11/26/2015 0612 EST OPERATIVE VAGINAL DELIVERY 1) Indication: NRFA, maternal exhaustion 2) Cervical Dilation: 10 cm 3) Station: +4 4) Position: OA 5) Adequacy of Pelvis: Adequate 6) EFW at Time of Placement: 8.5 lb 7) Type of Anesthesia: epidural 8) Drainage of the Bladder: drained with doan catheter prior to pushing Estimated Blood Loss: 400 cc Procedure: Risks and benefits of operative vaginal deilvery discussed with patient prior to placement of vacuum including; risks of caput, hematoma, and intracranial bleeding. Maternal risks toinclude lacerations, especially 3rd and 4th degree. Pt agreed to the procedure. With the patient in her labor bed, epidural analgesia in place, the vaginal exam revealed the fetusto be in the vertex OA presentation at +4 station with the cervix fully dilated. The vacuum cup wasapplied to the vertex. Position was checked to ensure no entrapment of maternal tissue. With appropriate axial traction in conjunction with maternal exertion, the vertex was brought from a +4 station to +5 in 1 pull with no popoffs. At that point, the mother used spontaneous expulsive effortsto deliver the vertex. The shoulders and body were delivered, the cord was doubly clamped and cut, and the handed to the awaiting pediatricians. A segment of cord was clamped for cord gas. Theplacenta was expressed intact. Inspection of the perineum and vagina revealed a second degree laceration with partial capsule laceration, which was repaired with 2-0 vicryl and 4-0 Vicryl suture. Thepatient remained stable in her labor room for recovery. Kim Carbone MD was present and scrubbed through the entire procedure. Mei Goodwin MD PGY-1 [facility] Obstetrics and Gynecology Pager: [phone] Cosigned by Kim Waddell MD at 12/04/2015 13:00 EST documented in this encounter Consult Notes * Gaurav Miner RN IBCLC - 12/01/2015 6257 EST Images from the original note were not included. [facility] Consult Progress Note Consult Requested By: MD Simons, RN ref. Reason for Consult: Maternal request/maternal anxiety, Difficult latch/non- sustained latch and Difficulty w latch on Mother's R side. Subjective: Mine states that she feels calmer today, being able to pump more and feed baby. Using formula if she doesn't have enough breastmilk to give him. He is taking about 70 cc or more each feeding today. Had planned initially to try but giving him the milk is most important to her. She finds a lot of inconsistently in staff messages about BF, ie. Was told by NICU and pediatricians that use of pacifiers and bottles does not lead to nipple confusion in babies and it is OK to dowhile other staff suggest avoiding pacifiers and bottles. Objective: Date of : Information for the patient's : Irvin Lynn [[id number]] 11/26/2015 Time of Delivery: Information for the patient's : Irvin Lynn [[id number]] 0226 Type of Delivery: Information for the patient's : Irvin Lynn [[id number]] Vaginal, Operative [1050] Weight: 4142 g (9 lb 2.1 oz) Gestational Age: Information for the patient's : Irvin Lynn [[id number]] 39 6/7 : Information for the patient's : Irvin Lynn [[id number]] 8 Information for the patient's : Irvin Lynn [[id number]] 9 GBS: Mother was negative. Anesthesia: Labor analgesia: Epidural, Delivery anesthesia: Epidural, Adjunctive analgesia: Incisional local, Anesthetic complications: None Additional comments: History/ Complications: NRFA, Maternal Exhaustion & Chorio. Maternal Lab: Lab Results Component Value Date HCT 37.9 11/25/2015 Infant Lab: Information for the patient's : Irvin Lynn [[id number]] Lab Results Component Value Date TCB 6.1 11/27/2015 Information for the patient's : Irvin Lynn [[id number]] No results found for: TBIL Information for the patient's : Irvin Lynn [[id number]] No results found for: CRP History: None- Primipara. Social History: Mine lives in [facility] her husb [facility]. Mother DID receive a new Br pump thru her insurer, & she will check on Monday, if ins covers any LC visits at home. Plans RTW in 6-8 wks. FOB has to RTW soon. They do have family who is available to help with technical adjuster. Medical History: Pertinent Maternal History:Pelvic floor dysfunction, Anxiety Tx w Ativan during preg, + GERD. , there may have been oxycodone use as well for coccyx pain, last taken 2 wks prior to delivery ( pedi note). Blood type: O negative. Current Maternal Medications: No current facility-administered medications for this encounter. No current outpatient prescriptions on file. Maternal Anatomy: no abnormalities noted milk is in. Pertinent Infant History: NRFA. O positive. Transferred to NICU for dehydration and hypernatremia -bottlefed in NICU rather than BF. Started and continues IV abx. Has had loose watery stools and nowhas diaper rash with excoriated skin, using Desitin now. Current Infant Medications: Information for the patient's : Irvin Lynn [[id number]] Current Facility-Administered Medications Medication ??? ampicillin (OMNIPEN) injection 186 mg ??? Breast Milk Identification ??? Breast Milk Identification ??? cefoTAXime 186 mg IV syringe ??? cholestyramine 5% ointment 80.5 gm jar ??? sucrose 24% (TOOTSWEET) solution 0.1-0.3 mL ??? white petrolatum-zinc (ILEX SKIN PROTECTANT) paste Anatomy: no abnormalities noted Infants Current Weight: Information for the patient's : Irvin Lynn [[id number]] 3980 g (8 lb 12.4 oz) Change from Weight: Down 3.9 oz since yesterday Information for the patient's : Irvin Lynn [[id number]] -4% 24 hour I/O: BF x 1 using nipple shield/tube at breast + 244 cc -plus formula + about 85 cc EBM/24 hrs c 2 voids + 5 stools ( may have had more while in NICU) Observation: Baby had fed prior to my visit so I didn't observe BF yet today. Reviewed frequency and how long topump in Standard program on Symphony pump, typical amounts that she might pump over next couple weeks. Discussed helpfulness of STS, laid back position, offering breast in calm states to BF success. Reviewed Paced Bottle feeding method and gave research-based info on use of pacifiers/bottles. Parents are most comfortable currently with either tube at breast or bottle for supplementation. Discussed that frequent continued guidance on supplementation would be important if baby starts to BF more frequently, that community f/u c IBCLC would be helpful, reinforcing that parents call their insurer to ask about coverage. Gave resource of Sherry Spears NP, IBCLC at [facility]. Reviewed typical amts of food that baby may take via bottle, typical diaper output for adequately fed breastfed babies, weight gains, how one might slowly wean from supplements as BF improved and planning this with PCP. Discussed s/s yeast for her and baby and when to call MD. Gave some strategies to help baby feed at breast; enc her to call for help at next feeding. FOB present, supportive and helpful. Patient Education:Prevention/treatment of engorgement, Community resources for , Typical pattern of night and cluster feeding, Introducing a bottle, Pumping instructions, Paced bottle feeding, Use of tube at breast, Breast compressions and Basics of positioning/latch Assessment: continues to be very fussy at BF attempts, causing anxiety and unsustained latches now, tho parents report that baby initially Bf very well in the first couple days. Mine feels that pumping, offering breast and bottlefeeding baby if he doesn't latch is a plan thatshe can continue for now. This mom would need strong, frequent IBCLC support p discharge if baby still primarily bottlefeeding at discharge, since she would like to BF if it is possible. Plan: BF when infant cues and is in a calm state, no longer than 3 hours between feeds SNS at breast to supplement or use paced bottle feeding method to supplement with slow flow nipple. Try laid back position to help to get organized and calm to feed. Use nipple shield if needed to assist with latching or if need for bruised right nipple. STS as much as possible, holding baby swaddled when not sts as this baby has antwan type symptoms. Nerma to continue to double pump a minimum of 8-10 x/ 24 hrs until baby BF more consistently Strongly recommend IBCLC f/u in community Mine may need a hospital grade pump if Medela Pump N Style is not as effective for her as Symphonyin setting of baby who is unable to latch and sustain sucking at breast at this time Handouts given: Milk Storage Guidelines and List of Community Resources Pump Equipment:: Medela Pump N Style Time spent: In Room: 40 mins face to face Out of room: 15 mins LC to see: 12/02 Gaurav Miner RN IBCLC 12/01/2015 14:28 * Leslee Manzano RN IBCLC - 11/28/2015 1125 ESTAssociated Order(s): CONSULT Images from the original note were not included. [facility] Consult Initial Consult Consult Requested By: MD Kristyn RN ref. Reason for Consult: Maternal request/maternal anxiety, Difficult latch/non- sustained latch and Difficulty w latch on Mother's R side. Subjective: My baby was latching so well for me during the first few hrs of his life- now today- he is fussy at breast, & he gets upset very quickly- he cries before I can get him latched.. Objective: Date of : Information for the patient's : Irvin Lynn [[id number]] 11/26/2015 Time of Delivery: Information for the patient's : Irvin Lynn [[id number]] 0226 Type of Delivery: Information for the patient's : Irvni Lynn [[id number]] Vaginal, Operative [1050] Weight: 4142 g (9 lb 2.1 oz) Gestational Age: Information for the patient's : Irvin Lynn [[id number]] 39 6/7 : Information for the patient's : Irvin Lynn [[id number]] 8 Information for the patient's : Irvin Lynn [[id number]] 9 GBS: Mother was negative. Anesthesia: Labor analgesia: Epidural, Delivery anesthesia: Epidural, Adjunctive analgesia: Incisional local, Anesthetic complications: None Additional comments: History/ Complications: NRFA, Maternal Exhaustion & Chorio. Maternal Lab: Lab Results Component Value Date HCT 37.9 11/25/2015 Infant Lab: Information for the patient's : Irvin Lynn [[id number]] Lab Results Component Value Date TCB 6.1 11/27/2015 Information for the patient's : Irvin Lynn [[id number]] No results found for: TBIL Information for the patient's : Lauren Lynnbushrajason [[id number]] No results found for: CRP History: None- Primipara. Social History: Mine lives in [place] w her husb Bushramin. Mother DID receive a new Br pump thru her insurer, & she will check on Monday, if ins covers any LC visits at home. Medical History: Pertinent Maternal History:Pelvic floor dysfunction, Anxiety Tx w Ativan during preg, + GERD. O negative. Current Maternal Medications: Current Facility-Administered Medications Medication ??? acetaminophen (TYLENOL) tablet 325-650 mg ??? calcium carbonate (TUMS) 200 mg calcium (500 mg) per chewable tablet tablet,chewable 1-2 Tab ??? docusate sodium (COLACE) capsule 100 mg ??? HYDROmorphone (DILAUDID) tablet 2 mg ??? ibuprofen (MOTRIN) tablet 400 mg ??? lansinoh HPA lanolin ??? multivitamin vit-iron fumarate-FA (STUARTNATAL) 27 mg iron- 1 mg tablet 1 Tab ??? PEG 3350-Electrolytes (MIRALAX) packet 17 g Maternal Anatomy: no abnormalities noted, breasts beginning to fill- Pertinent History: NRFA. O positive. Current Infant Medications: Information for the patient's : Lauren Lynnbushrajason [[id number]] Current Facility-Administered Medications Medication ??? ampicillin (OMNIPEN) injection 207 mg ??? Breast Milk Identification ??? gentamicin 14.5 mg IV Syringe ??? sucrose 24% (TOOTSWEET) solution 0.1-0.3 mL Infant Anatomy: no abnormalities noted, occasionally thrusts his tongue- this results in 'click' sound during latch. Infants Current Weight: Information for the patient's : Lauren Lynnbushrajason [[id number]] 3730 g (8 lb 3.6 oz) Change from Weight: Information for the patient's : Irvin Lynn [[id number]] -10% 24 hour I/O: BFs 10x + 2 more attempts, + sm amts bottle= 18cc, in the past 24 hrs. Voided 6x, stooled 8x . Creatinine = 1.22 Serum Bili = 11.9 ABX continue for 5 more days. Observation: Baby was fussy then latch for bursts of sucks/swallows, but would not latch without flow present. Baby also had gassy periods during BF, & Mother is surprised by his fussiness today- stating that her baby had been latching much better without all the fussiness at breast only yesterday. Baby had several gassy episodes, & even burped while at breast. Able to have a pretty good BF on Mother's R side w full assist & SNS tube taped to her breast- baby stopped feeding as soon as the formula supplementation ran out. Mine had just had one nap today & was still exhausted- but was willing to Br pump to keep her supply up & to have Br milk to use for SNS at night. Patient Education:Community resources for , Typical pattern of night and cluster feeding, Pumping instructions, Use of tube at breast, Breast compressions and Basics of positioning/latch Assessment: Mine is un happy that her is not BF/latching as well as he had been doing yesterday- she has been successful w latch w SNS at breast- baby will suckle in bursts w flow present. Plan: STS as much as possible. Offer breast with cues, at least 8-12 times per 24 hours No longer then 3 hours without feeding Try to observe latch at least once per shift - help with this PRN Use breast compressions to keep baby swallowing PRN PLEASE have mother Br pump while awake & use Br milk when available as SNS at breast. Pumped br milk or Sm amts of formula if needed SNS at breast til baby is back on track w effective latch. Handouts given: none yet Pump Equipment:: Br pump at home from insurer Time spent: In Room: 30 mins Out of room: 15 mins LC to see: 11/29/15 Leslee Manzano RN IBCLC 11/28/2015 11:26 documented in this encounter Miscellaneous Notes * Note - Leslee Manzano RN IBCLC - 12/02/2015 1532 EST Images from the original note were not included. [facility] Consult Progress Note Consult Requested By: MD Simons, RN ref. Reason for Consult: Maternal request/maternal anxiety, Difficult latch/non- sustained latch and Difficulty w latch on Mother's R side. Subjective: Mine states that she BF her baby during a period of calm during the night & her baby latched right on & had a good BF- w her husbands assist. Mine plans to do this more often at home where she will have her privacy. Objective: Date of : Information for the patient's : Irvin Lynn [[id number]] 11/26/2015 Time of Delivery: Information for the patient's : Irvin Lynn [[id number]] 0226 Type of Delivery: Information for the patient's : Irvin Lynn [[id number]] Vaginal, Operative [1050] Weight: 4142 g (9 lb 2.1 oz) Gestational Age: Information for the patient's : Irvin Lynn [[id number]] 39 6/7 : Information for the patient's : Irvin Lynn [[id number]] 8 Information for the patient's : Irvin Lynn [[id number]] 9 GBS: Mother was negative. Anesthesia: Labor analgesia: Epidural, Delivery anesthesia: Epidural, Adjunctive analgesia: Incisional local, Anesthetic complications: None Additional comments: History/ Complications: NRFA, Maternal Exhaustion & Chorio. Maternal Lab: Lab Results Component Value Date HCT 37.9 11/25/2015 Infant Lab: Information for the patient's : Irvin Lynn [[id number]] Lab Results Component Value Date TCB 6.1 11/27/2015 Information for the patient's : Irvin Lynn [[id number]] No results found for: TBIL Information for the patient's : Irvin Lynn [[id number]] No results found for: CRP History: None- Primipara. Social History: Mine lives in [place] w her husb Kentrell. Mother DID receive a new Br pump thru her insurer, & she will check on Monday, if ins covers any LC visits at home. Plans RTW in 6-8 wks. FOB has to RTW soon. They do have family who is available to help with technical adjuster. Medical History: Pertinent Maternal History:Pelvic floor dysfunction, Anxiety Tx w Ativan during preg, + GERD. , there may have been oxycodone use as well for coccyx pain, last taken 2 wks prior to delivery ( pedi note). Blood type: O negative. Current Maternal Medications: No current facility-administered medications for this encounter. No current outpatient prescriptions on file. Maternal Anatomy: no abnormalities noted milk is in. Pertinent Infant History: NRFA. O positive. Transferred to NICU for dehydration and hypernatremia -bottlefed in NICU rather than BF. Started and continues IV abx. Has had loose watery stools and nowhas diaper rash with excoriated skin, using Desitin now. Current Medications: Information for the patient's : Irvin Lynn [[id number]] Current Facility-Administered Medications Medication ??? ampicillin (OMNIPEN) injection 186 mg ??? Breast Milk Identification ??? Breast Milk Identification ??? cholestyramine 5% ointment 80.5 gm jar ??? sucrose 24% (TOOTSWEET) solution 0.1-0.3 mL ??? white petrolatum-zinc (ILEX SKIN PROTECTANT) paste Anatomy: no abnormalities noted Infants Current Weight: Information for the patient's : Irvin Lynn [[id number]] 4120 g (9 lb 1.3 oz) Change from Weight: Baby's weight is UP since yesterday. Information for the patient's : Irvin Lynn [[id number]] -1% 24 hour I/O: BF x 1, + 480 cc - EBM/bottle in the past 24 hrs. c 9 voids + 10 stools Observation: I reviewed Pumping, paced bottle feeding method, & to offer baby BF as soon as Mother notes cues- not to wait for baby to become fussy before latch attempts. I gave Mother ice packs for engorgement Tx & spelled out how to call the VNA by mid morning tomorrow at home if she has not heard from them by then. Ask for IBCLC visits & there will lesa Recinos MD order for VNA visits. Patient Education:Prevention/treatment of engorgement, Community resources for , Typical pattern of night and cluster feeding, Introducing a bottle, Pumping instructions, Paced bottle feeding, Use of tube at breast, Breast compressions and Basics of positioning/latch Assessment: Mine states that during a very calm period during the night time, she was able to latch her & have a very good BF.- She will try more of this in the privacy of her home. Plan: BF when cues and is in a calm state, no longer than 3 hours between feeds SNS at breast to supplement or use paced bottle feeding method to supplement with slow flow nipple. Try laid back position to help to get organized and calm to feed. Use nipple shield if needed to assist with latching or if need for bruised right nipple. STS as much as possible, holding baby swaddled when not sts as this baby has antwan type symptoms. Nerma to continue to double pump a minimum of 8-10 x/ 24 hrs until baby BF more consistently- I re enforced this today. Strongly recommend IBCLC f/u in community Ped order VNA w IBCLC visits. Handouts given: Milk Storage Guidelines and List of Community Resources Pump Equipment:: Medela Pump N Style Time spent: In Room: 30 mins face to face Out of room: 10 mins Mother declines LC f/u ph call Leslee Manzano RN IBCLC 12/02/2015 15:32 * Note - Henrietta Ely RN IBCLC - 11/30/2015 0378 EST Images from the original note were not included. [facility] Consult Progress Note Consult Requested By: MD Simons, RN ref. Reason for Consult: Maternal request/maternal anxiety, Difficult latch/non- sustained latch and Difficulty w latch on Mother's R side. Subjective: Mother is tearful today & exhausted. Objective: Date of : Information for the patient's : Irvin Lynn [[id number]] 11/26/2015 Time of Delivery: Information for the patient's : Irvin Lynn [[id number]] 0226 Type of Delivery: Information for the patient's : Irvin Lynn [[id number]] Vaginal, Operative [1050] Weight: 4142 g (9 lb 2.1 oz) Gestational Age: Information for the patient's : Irvin Lynn [[id number]] 39 6/7 : Information for the patient's : Irvin Lynn [[id number]] 8 Information for the patient's : Irvin Lynn [[id number]] 9 GBS: Mother was negative. Anesthesia: Labor analgesia: Epidural, Delivery anesthesia: Epidural, Adjunctive analgesia: Incisional local, Anesthetic complications: None Additional comments: History/ Complications: NRFA, Maternal Exhaustion & Chorio. Maternal Lab: Lab Results Component Value Date HCT 37.9 11/25/2015 Infant Lab: Information for the patient's : Irvin Lynn [[id number]] Lab Results Component Value Date TCB 6.1 11/27/2015 Information for the patient's : Irvin Lynn [[id number]] No results found for: TBIL Information for the patient's : Irvin Lynn [[id number]] No results found for: CRP History: None- Primipara. Social History: Mine lives in [place] w her husb Nermin. Mother DID receive a new Br pump thru her insurer, & she will check on Monday, if ins covers any LC visits at home. Medical History: Pertinent Maternal History:Pelvic floor dysfunction, Anxiety Tx w Ativan during preg, + GERD. O negative. Current Maternal Medications: No current facility-administered medications for this encounter. Current Outpatient Prescriptions Medication ??? acetaminophen (TYLENOL) 500 mg tablet ??? albuterol 90 mcg/actuation inhaler ??? docusate sodium (COLACE) 100 mg capsule ??? HYDROmorphone (DILAUDID) 2 mg tablet ??? HYDROmorphone (DILAUDID) 2 mg tablet ??? ibuprofen (MOTRIN) 600 mg tablet ??? inhalational spacing device (BREATHERITE MDI SPACER) ??? multivitamin vit-iron fumarate-FA (STUARTNATAL) 27 mg iron- 1 mg tablet tablet Maternal Anatomy: no abnormalities noted milk is in. Pertinent History: NRFA. O positive. Current Medications: Information for the patient's : Irvin Lynn [[id number]] Current Facility-Administered Medications Medication ??? ampicillin (OMNIPEN) injection 186 mg ??? Breast Milk Identification ??? Breast Milk Identification ??? cefoTAXime 93 mg IV syringe ??? cholestyramine 5% ointment 80.5 gm jar ??? sucrose 24% (TOOTSWEET) solution 0.1-0.3 mL ??? white petrolatum-zinc (ILEX SKIN PROTECTANT) paste Anatomy: no abnormalities noted Infants Current Weight: Information for the patient's : Irvin Lynn [[id number]] 4090 g (9 lb 0.3 oz) Change from Weight: Information for the patient's : Irvin Lynn [[id number]] -1% 24 hour I/O: voided x6, stooled x7, 365ml of ebm/formula in the last 24 hours. ABX continue for 2 more days.- Ampi/Cefotaxime Creatinine decreased to 0.07, Na+ 144 Observation: Assisted mother/ dyad after was transferred to our unit this afternoon. was fussy/frantic during my visit and was not able to take the bottle or breast.Mine was able to settle the but he would immediately get frantic or fussy when attempting to feed at breast or by bottle. I encouraged the laid back position, calmed down in the laid back position so the plan we made was to let him re-organize and get calm and then attempt to latch when he begins to cue and root at the breast in the laid back position. I also suggested bottle feeding with a slow flow nipple when he's supplemented as he seemed to get milk to fast with the regular nipple. I will attempt to re-visit them this evening if needed for another feed. Patient Education:Introducing a bottle, Pumping instructions, Use of tube at breast, Breast compressions and Basics of positioning/latch Assessment: is fussy/frantic which is makes latching and feeding difficult. Plan: BF when cues and is in a calm state, no longer than 3 hours between feeds SNS at breast to supplement or use paced bottle feeding method to supplement with slow flow nipple. Try laid back position to help infant to get organized and calm to feed. Use nipple shield if needed to assist with latching or if need for bruised right nipple. STS as much as possible, holding baby swaddled when not sts as this baby has antwan type symptoms. Mother to double Br pump if infant does not feed well at breast. Handouts given: none yet Pump Equipment:: Br pump at home from insurer Time spent: In Room: 25 mins Out of room: 10 mins charting & discussion w RN. LC to see: 12/01/15 Henrietta Ely RN IBCLC 11/30/2015 18:04 * Plan of Care - Martha Cortez RN - 11/29/2015 1843 EST Problem: Daily Care Plan Goals Goal: Care Plan Documentation Outcome: Completed Date Met: 11/29/15 11/29/15 6244 Care Plan Focus Area of Focus Discharge Plan Goal This Shift complete discharge D: Mine has viewed the maternal discharge video, turned in her certificate & parentage form, signed her avs & picked up her perscriptions. A:She denied having any questions regarding the discharge teaching. She was educated regarding continuing her bowel medications as she has still not had a bowel movement. I encouraged her to pump herbreasts if the baby doesn't breast feed well. She knows that , if she has a medical need, she will have to contact the doctor herself or go to the emergency room. R: Discharged to [facility]. Staying in room 726 for now but was told if we needed the room for a patient she would have to move to a boarder room. * Note - Leslee Manzano RN IBCLC - 11/29/2015 1525 EST Images from the original note were not included. [facility] Consult Progress Note Consult Requested By: MD Simons, RN ref. Reason for Consult: Maternal request/maternal anxiety, Difficult latch/non- sustained latch and Difficulty w latch on Mother's R side. Subjective: Mother is tearful today & exhausted. Objective: Date of : Information for the patient's : Irvin Lynn [[id number]] 11/26/2015 Time of Delivery: Information for the patient's : Irvin Lynn [[id number]] 0226 Type of Delivery: Information for the patient's : Irvin Lynn [[id number]] Vaginal, Operative [1050] Weight: 4142 g (9 lb 2.1 oz) Gestational Age: Information for the patient's : Irvin Lynn [[id number]] 39 6/7 : Information for the patient's : Irvin Lynn [[id number]] 8 Information for the patient's : Irvin Lynn [[id number]] 9 GBS: Mother was negative. Anesthesia: Labor analgesia: Epidural, Delivery anesthesia: Epidural, Adjunctive analgesia: Incisional local, Anesthetic complications: None Additional comments: History/ Complications: NRFA, Maternal Exhaustion & Chorio. Maternal Lab: Lab Results Component Value Date HCT 37.9 11/25/2015 Infant Lab: Information for the patient's : Irvin Lynn [[id number]] Lab Results Component Value Date TCB 6.1 11/27/2015 Information for the patient's : Irvin Lynn [[id number]] No results found for: TBIL Information for the patient's : Irvin Lynn [[id number]] No results found for: CRP History: None- Primipara. Social History: Mine lives in [place] w her husb Kentrell. Mother DID receive a new Br pump thru her insurer, & she will check on Monday, if ins covers any LC visits at home. Medical History: Pertinent Maternal History:Pelvic floor dysfunction, Anxiety Tx w Ativan during preg, + GERD. O negative. Current Maternal Medications: Current Facility-Administered Medications Medication ??? acetaminophen (TYLENOL) tablet 1,000 mg ??? calcium carbonate (TUMS) 200 mg calcium (500 mg) per chewable tablet tablet,chewable 1-2 Tab ??? docusate sodium (COLACE) capsule 100 mg ??? HYDROmorphone (DILAUDID) tablet 2 mg ??? ibuprofen (MOTRIN) tablet 600 mg ??? lansinoh HPA lanolin ??? multivitamin vit-iron fumarate-FA (STUARTNATAL) 27 mg iron- 1 mg tablet 1 Tab ??? PEG 3350-Electrolytes (MIRALAX) packet 17 g Maternal Anatomy: no abnormalities noted, breasts beginning to fill- Pertinent History: NRFA. O positive. Current Infant Medications: Information for the patient's : Irvin Lynn [[id number]] Current Facility-Administered Medications Medication ??? ampicillin (OMNIPEN) injection 186 mg ??? Breast Milk Identification ??? cefoTAXime 93 mg IV syringe ??? dextrose 10 %-1/4 NS with KCl 20 mEq/L infusion ??? sucrose 24% (TOOTSWEET) solution 0.1-0.3 mL ??? zinc oxide (DESITIN) 40 % ointment Anatomy: no abnormalities noted, occasionally thrusts his tongue- this results in 'click' sound during latch. Infants Current Weight: Information for the patient's : Irvin Lynn [[id number]] 3710 g (8 lb 2.9 oz) Change from Weight: Information for the patient's : Irvin Lynn [[id number]] -10% 24 hour I/O: BFs 10x + 2 more attempts, + FF/SNS/ bottle w formula= 247cc, in the past 24 hrs. Voided 7x, stooled 10x . Creatinine = 1.30 ABX continue for 4 more days.- Ampi/Cefotaxime Observation: Transferred to NICU today. Patient Education:Community resources for , Typical pattern of night and cluster feeding, Pumping instructions, Use of tube at breast, Breast compressions and Basics of positioning/latch Assessment: Mine is d/c to boarder room on the Mother/Baby unit curtesy room. Plan: STS as much as possible when visiting baby in the NICU. Mother to double Br pump 8 or more times in 24 hrs. Use the preemie card setting on the Minervaxhony pump til mother produces 20cc per pump x 2. (Have further pump instructions after that) Please allow for 4 to 5 hrs BREAK from pumping in the night time. Handouts given: none yet Pump Equipment:: Br pump at home from insurer Time spent: In Room: 0 mins Out of room: 10 mins charting & discussion w RN. LC to see: Leslee Manzano RN IBCLC 11/29/2015 15:25 * Plan of Care - Caro King RN - 11/29/2015 1446 EST Problem: Daily Care Plan Goals Goal: Care Plan Documentation Outcome: Not Met This Shift 11/29/15 1200 Care Plan Focus Area of Focus Discharge Plan Goal This Shift video and AVS DATA Day 3 pt, stable with baby staying for antibiotics. Teary on and off, increasing after informed baby Darren going to NICU for IV fluids.Labia much improved from yesterday and still using ice. ACTION Pt will become courtesy mom once hands in BC, parentage, reviews AVS and signs. SL removed. Picked up pain meds and colace. Still no bowel movement. Emotional support frequently. RESPONSE moving to room 766 this afternoon. * Plan of Care - Diann Joshua RN - 11/29/2015 6100 EST Problem: Daily Care Plan Goals Goal: Care Plan Documentation Outcome: Met This Shift 11/28/15 2330 Care Plan Focus Area of Focus Sleep Goal This Shift cluster care to allow longer sleep periods Data: Day 3 vaginal delivery. Action: Clustered care. Assisted pt with br fdg and SNS. Cared for baby in nbn. Response: Pt was able to sleep for long periods of time this shift. Diann Joshua RN 11/29/2015 5:43 * Plan of Care - Caro Kign RN - 11/28/2015 1358 EST Problem: Daily Care Plan Goals Goal: Care Plan Documentation 11/28/15 0745 Care Plan Focus Area of Focus Education Goal This Shift care DATA primip day 2 with severe swollen labia right and left, no bruising, stitches intactand WNL pain 6-8/10 with ice on, Coccyx pain 6-8/10 with warm packs on. Unable to lay on side or sit on bottom Due to swollen labia. ACTION Medicated with tylenol and motrin , doses changed and now every 6hours with dilaudid decreased to 2mg every 4 hours as needed for breakthrough after patient discussed plan with attending Marta. Discussed with patient need to ambulate more and watch discharge video. Taking colace 100mg BID and miralax. Emotional support and reassurance when possible. Encourage frequent voiding and increased po fluids. SL patent, no s/sx infection remains in due to occasional bit of dizziness and cold cloth helps RESPONSE Pt will remain stable 18:15 pt to shower on chair with assist from partner, some lightheadedness on and off throughout the day even after dilaudid decreased to 2mg. engineering group leader notified. * Plan of Care - Barbara Jean RN - 11/28/2015 0629 EST Problem: Daily Care Plan Goals Goal: Care Plan Documentation 11/28/15 0000 Care Plan Focus Area of Focus Education Goal This Shift baby care/feeding D: Pt rating pain 6/10 this shift for coccyx pain and perineal swelling. Working hard on and care for baby this shift. A: Ice applied on/off. ABX administration. Tylenol/Motrin/Dilaudid 4mg q 4hrs administered. Encouraged hydration. Assisted with feedings. Pumping re-initiated. R: Pt still in pain, but states that pain is tolerable at this time. Labial swelling has certainly decreased over 24h. Still providing ice packs on/off throughout shift. +1 pitting edema present bilaterally. Colostrum present, but not easily expressed. Baby fussy, gassy, nipple confused, seems hungry this shift. (His weight is down 10%). ABX administered and administration complete. IV patent. * Plan of Care - Varsha Portillo, RN - 11/27/2015 7797 EST Problem: Daily Care Plan Goals Goal: Care Plan Documentation Outcome: Met This Shift 11/27/15 1600 Care Plan Focus Area of Focus Pain/ Comfort Goal This Shift Maintain a level of comfort that is tolerable. Data: Pain and comfort. S/P vaginal delivery 1 day ago. Very edematous labia. Coccyx pain. Action: Medication, positioning assistance with pillows and ice to labia. Heat applied to coccyx. Response: Pain relieved with meds @ 4 hrs from 7/10 to 4/10. Ice w/relief. Most comfort when off ofcoccyx and side lying. Varsha Portillo RN 11/27/2015 22:33 * Plan of Care - Payton Oneil RN - 11/27/2015 1418 EST Problem: Daily Care Plan Goals Goal: Care Plan Documentation Outcome: Met This Shift 11/27/15 0800 Care Plan Focus Area of Focus Pain/ Comfort Goal This Shift maintain a tolerable level of pain. Data: Stable post mom having moderate pain from perineum and coccyx rating it a 4-6/10. Action: Pain med offered and given every 4 hours including dilaudid 4 mg, ice to perineum and heat or ice to coccyx. Encoulaged to change position as much as possible. Response: Continue to monitor pain and offer other non-medication pain relieving measures. Payton Oneil RN 11/27/2015 14:14 * Plan of Care - Barbara Jean RN - 11/27/2015 0626 EST Problem: Daily Care Plan Goals Goal: Care Plan Documentation 11/27/15 0611 Care Plan Focus Area of Focus Pain/ Comfort Goal This Shift tolerable pain levels D: Pt rating pain at 7/10 through much of the night. Labia are very swollen, left labia more than right over the course of the shift. Sacral pain and perineal pain present. Ice encouraged; ice on/offthrough most of the shift. A: Notified MD Goodwin about increased swelling. MD came to bedside to evaluate. R: Before vaginal exam by pt reported that she was not feeling that she could fully empty her bladder. MD found no hematoma present. Pt now on strict I/O, knows to measure. Full assist with breast feeding. ABX administration ongoing for full 48 hrs. Pain meds increased to Tylenol/Motrin/Dilaudid 4mg, prn; last given at 0551. Pt did not take mineral oil provided on evening shift. * Plan of Care - Babar Bernabe RN - 11/26/2015 4553 EST Problem: Daily Care Plan Goals Goal: Care Plan Documentation 11/26/15 2230 Care Plan Focus Area of Focus Education Goal This Shift continue to work on breast feeding Data: Day #0 patient s/p . Mother breast feeding LGA infant. starting to become more interested in sustaining his latch. Attempting to feed q 2-3 hours. Action: Assisted with latching . Response: Stable PP pt, AVSS. Breast feeding continuing to improve. Baby gaping widely and sustaining latch for a few minutes. Lots of STS today. Will continue with breast feeding education. Babar Bernabe RN 11/26/2015 22:31 * Plan of Care - Payton Oneil RN - 11/26/2015 1417 EST Problem: Daily Care Plan Goals Goal: Care Plan Documentation Outcome: Ongoing 11/26/15 0746 Care Plan Focus Area of Focus Nutrition/ Diet Goal This Shift maintain adequate pain control Data: Pt rating her coccyx pain 6-8/10, Labia very swollen and painful-declined ice to perineum Action:Seen by Resident Alma Florentino for coccyx pain. Medicated with pain meds every 4 hours, other non-medication pain relievers offered, will offer donut and heat for coccyx pain. Pt will acceptice to perineum as well. Response: Will continue to medicate and offer pain meds. Continue to try non medication pain relievers for pain also. Payton Oneil RN 11/26/2015 14:15 * Plan of Care - Galindo Cavazos RN - 11/26/2015 0655 EST Problem: Daily Care Plan Goals Goal: Care Plan Documentation Outcome: Met This Shift 11/26/15 0647 Care Plan Focus Area of Focus GI//Elimination Data: DD PP pt of LGA baby boy. Pt with stable BB reported feeling dizzy on the toilet trying to void. Pt needed help back to bed without a void. Pt continued to report feeling like needing to void. Fundus to the right at the U. Action: Straight cath pt for 800cc. Response: Pt reports feeling relief. Pt has been able to have a short nap. Amp not available for administration. Called pharmacy x2. Still not available at 0645. Galindo Cavazos RN 11/26/2015 6:48 * L&D Delivery Note - Mei Goodwin MD - 11/26/2015 0603 EST Delivery Information Mine Lynn is a 25 year old who presented to L&D at 39+5 with contractions. She had an epidural placed, was AROMed for clear fluid and progressed to complete. Shortly after she was noted to be febrile and tachycardic and ampicillin and gentamycin were started for chorioamnionitis. W hile pushing tachycardia to the low 200s was noted and a vacuum was used to facilitate delivery. The vacuum was applied at 4+ station and delivery occurred in 1 pull with no pop-offs. A second degree midline perineal laceration with partial capsule tear was noted and repaired with good hemostasis. The patient tolerated the procedure well and her infant went to the term nursery. Mine Lynn is a 25 y.o. at 39w6d delivered by Vaginal, Operative . Irvin Lynn [phone] at Gestational Age: 39w6d delivered by Vaginal, Operative weighed 4142g (9 lb 2.1 oz), 8 /9 , sent to NICU after delivery. Maternal: Delivery Plan Outcome Planned home ? Not planned External cephalic version attempt indicated? Not indicated Delivery as waterbirth? No SUNITA after : Not applicable Delivery Indications Maternal Indications for delivery/comments: Labor Indications for delivery/comments: Not applicable Intrapartum Medication Intrapartum preeclampsia: No Intrapartum Mg: No Intrapartum Mg Indication: N/A Labor Labor onset: Spontaneous Cervical ripening/induction agent: N/A Labor augmentation: None Augmentation indication/comments: N/A Infection/Risk of Sepsis GBS Status: Negative GBS treatment: PROM > or = 18 Hours: N/A Maternal Fever > or = 38 C: N/A Maternal Tachycardia > 100 bpm: N/A Tachycardia > 160 bpm: N/A Uterine tenderness: N/A Foul odor of amniotic fluid: N/A Chorioamnionitis: N/A HIV Status/treatment: Not indicated Hepatitis B Surface Antigen: Negative Assessment monitoring: Contiunous - External heart rate characteristics/comments: Cat 1 Cat 2 demise: N/A Anesthesia Labor analgesia: Epidural, Delivery anesthesia: Epidural, Adjunctive analgesia: Incisional local, Anesthetic complications: None Additional comments: Maternal Delivery Delivery type: Vaginal, Operative Presentation: Vertex Position: OA indication: Forceps Attempted: No Vacuum Attempted: Yes Operative Vaginal Delivery Indication: Maternal exhaustion NRFA Station - Initial Application: +4 Details of Shoulder Dystocia (if applicable) Dystocia Present? No Maneuvers Performed (if applicable) Placenta Delivered: 11/26 2:08 Delivery method: Controlled Cord Traction Morphology: Normal Disposition: Refrigerator Cord Details Vessels: 3 Vessels Complications: None Nuchal intervention: Nuchal cord description: Cord around: Number of loops: Gases Sent? Yes Cord Blood Sent: Blood type / Rh Stem cell collection (by )? No Comments: Lacerations/Episiotomy Lacerations: Yes 2nd degree Periurethral: N/A Additional Lacerations: N/A Episiotomy: None Indication: N/A Repair Suture: 4-0 Vicryl;2-0 Vicryl Procedures Additional Procedures: None Hemorrhage (if applicable) hemorrhage: None Estimated blood loss (mL): 400.00 Uterotonics/PPH Procedures: Uterine massage, Oxytocin, Blood Products Transfused: (if applicable) Labor Length Duration of 1st Stage: hours minutes Duration of 2nd Stage: 3 hours 7 minutes Duration of 3rd Stage: hours minutes Duration of Cord Clamp Delay: 0 seconds Precipitous Labor (<3 hours): No Prolonged Labor (>20 hours): No [place]: Date of : 11/26/2015 Time of : 225 Sex: male Weight (grams): 4142 g (9 lb 2.1 oz) Length (in): 22 Head circumference (in): 14.37 Observed anomalies, comments: Meconium Present at Delivery: No (<37 wks): No Late (34-37 wks): No Steroid Course: Not indicated Indication: N/A PPROM Gestational Age: N/A APGARS Totals: 8 /9 /-/-/- Resuscitation Resuscitation: Suctioning Delivery Personnel Delivering Clinician: KIM WADDELL Additional Personnel: MEI GOODWIN;PAO MACIEL LAURA ROM Duration: (Delivered) 8h 45m Induction Duration (if applicable): Cosigned by Kim Waddell MD at 12/04/2015 13:00 EST * Plan of Care - Pao Maciel RN - 11/26/2015 0355 EST Problem: Daily Care Plan Goals Goal: Care Plan Documentation D: VAVD at 0206, 39w6d, Chorio Temp at 38.5. PEDS present for delivery A: Received gentamycin/ampicillin IV - See DEC. Next doses due at 0530/0815. Cool cloth to forehead. Fundus/firm/U-1/scant rubra. Pt reports 710 tailbone discomfort. Tylenol and ibuprofen received. R: Baby to NICU for chorio. Pt stable and to be transported via to [place] [id number] at 0415 * Plan of Care - Radha Castorena RN - 11/25/2015 1705 EST Problem: Daily Care Plan Goals Goal: Care Plan Documentation D. Pt's pain is 9/10 and is requesting an epidural A. Dr. Seay notified of pt request, approval given , and anesthesia notified of pt request. Epidural placed with a negative test dose, catheter secured. Pt taught how to use the Anesthesia button R. Pt's pain level after her Epidural is 6/10. Therefore, successful analgesia * Anesthesia Pre-Eval - Gerry Solares MD - 11/25/2015 1309 EST Obstetric Anesthesia Consult Name: MINE LYNN : 1990 Date: 11/25/2015 Age: 25 y.o. GA: 39w5d Dolly Driver: Kim Waddell MD Obstetric History: Obstetric History Complications during : None Allergies Allergen Reactions ??? Imitrex [Sumatriptan Succinate] Shortness Of Breath Anesthetic History: Anesthesia History Previous Patient or Family Problems with Anesthesia: None Airway Evaluation: Airway Evaluation Mallampati: 2 Mouth Opening: Normal Jaw Thrust: Normal Thyro-Mental Distance: Normal Neck Eval: ROM Normal Teeth: Normal Review of Systems: Smoker: No History of Respiratory Infections: No Asthma: Yes Asthma Medications: Yes (uses albuterol for SOB, but never diagnosed with asthma,) Asthma Triggers: Exercise Heart Murmur: No High Blood Pressure: No Angina/Palpitations: No Blood Vessel Disease: No Neurological Disease: No Muscular Degeneration: No Backpain/Neckpain: No Reflux/Heartburn/Hiatial Hernia: No Liver Disease: No Thyroid Disease: No Kidney Disease: No Diabetes: No Anemia: No Bleeding Disorders: No Previous Anesthesia for Childbirth: No Infectious Disease: No Opioid Dependency: No Contact Lenses/Glasses: None History reviewed. No pertinent past surgical history. No current facility-administered medications for this encounter. Outpatient Prescriptions Marked as Taking for the 11/25/15 encounter (Hospital Encounter) with Kim Waddell MD Medication Sig Dispense Refill ??? albuterol 90 mcg/actuation inhaler Inhale 2 Puffs as directed every 4 hours. 1 Inhaler 0 ??? HYDROCODONE/ACETAMINOPHEN (VICODIN ORAL) Take 1 Tab by mouth as needed ??? inhalational spacing device (BREATHERITE MDI SPACER) Use with a metered dose inhaler, as directed. May be dispensed with mask as appropriate.. 1 Each 0 ??? multivitamin vit-iron fumarate-FA (STUARTNATAL) 27 mg iron- 1 mg tablet tablet Take 1 Tab by mouth daily Vital Signs: BP 133/77 mmHg Temp(Src) 35.8 ??C (96.4 ??F) (Tympanic) Resp 16 Ht 162.6 cm (64.02) Wt 73.5 kg (162 lb 0.6 oz) BMI 27.80 kg/m2 Labs: Lab Results Component Value Date WBC 6.69 11/19/2015 HGB 12.0 11/19/2015 HCT 35.2 11/19/2015 MCV 91 11/19/2015 PLT 222 11/19/2015 BUN 9* 11/19/2015 CREATININE 0.68 11/19/2015 Blood/Cultures: Recent Results (from the past 1008 hour(s)) GROUP B STREP PCR Collection Time: 10/29/15 10:58 Result Value Ref Range Status GROUP B STREP PCR Negative Final ASA Classification: Grade II Plan: epidural, general, spinal mode(s) of anesthesia were discussed. TAP block was also discussed. Risks discussed included: Bleeding, Infection, Nerve Injury, Spinal headaches, low blood pressures with underperfusion, high spinals, hematomas, failure and replacement. All of Mine Lynn's questions were answered to her satisfaction. Unless otherwise noted, follow standard anesthesia pre-operative protocol. Gerry Solares MD 11/25/2015 Cosigned by Vielka Glover at 11/30/2015 18:12 EST Associated attestation - Vielka Glover MD - 11/30/2015 1812 EST Attestation statement: I saw and examined the patient with the resident/fellow. I agree with the findings and plan of care documented in the resident's/fellow's note. Vielka Glover MD documented in this encounter Plan of Treatment Upcoming Encounters Date Type Department Care Team (Late st Contact Info) Description 11/18/2024 8:15 EST Office Visit [facility] Pelvic Medicine and Reconstructive Surgery - Medical Office [facility] [address] [place] [id number] Julia Terrell PA-C [address] [place] [address] Medical Office Building, [address] [place] [phone] 11/25/2024 8:00 EST Rehab Therapy Visit [facility] Rehabilitation Therapy - Medical Office Building [address] [place], [place] [id number] Cira Jackson DPT [address] [facility], [facility], [address] [place] [phone] 12/02/2024 8:00 EST Rehab Therapy Visit [facility] Rehabilitation Therapy - Medical Office Building [address] [place] [address] Cira Jackson, KEMALT [address] [place] [address], [facility], [address] [place] [phone] 12/09/2024 8:00 EST Rehab Therapy Visit [facility] Rehabilitation Therapy - Medical Office Building [address] [place] [address] Cira Jackson, KEMALT [address] [place] [address], [address] [place] [phone] 12/16/2024 9:00 EST Rehab Therapy Visit [facility] Rehabilitation Therapy - Medical Office [address] [address] Cira Jackson, KEMALT [address] [place] [address], [address] [place] [phone] 12/23/2024 9:00 EST Rehab Therapy Visit [facility] Rehabilitation [facility] - Medical Office [address] [address] Cira Jackson, KEMALT [address] [place] [address], [address] [place] [phone] Scheduled Referrals Name Type Priority Associated Diagnoses Order Schedule PROVIDER FOLLOW-UP INSTRUCTIONS Outpatient Referral Routine Ordered: 11/28/2015 documented as of this encounter Procedures Procedure Name Priority Date/Time Associated Diagnosis Comments ADMINISTER RHOGAM (RHIG) 300 MCG Routine 11/28/2015 9:02 EST POST RH IMMUNE GLOBULIN ( SCREEN TEST AND RHIG) Routine 11/26/2015 6:02 EST GLUCOSE, GLUCOMETER Routine 11/26/2015 5 :38 EST BLOOD GASES, CORD VENOUS STAT 11/26/2015 2:30 EST BLOOD GASES, CORD ARTERIAL STAT 11/26/2015 2:30 EST TYPE AND SCREEN Routine 11/25/2015 22:51 EST BLOOD BANK HOLD STAT 11/25/2015 15:36 EST COMPLETE BLOOD COUNT STAT 11/25/2015 12:30 EST documented in this encounter Results * POST RH IMMUNE GLOBULIN ( SCREEN TEST AND RHIG) (11/26/2015 6:02 EST) Screen Test NEGATIVE [facility] Derivative Code Rh Immune Globulin 300 ug [facility] Lot Number [id number] [facility] Unit Status Transfuse [facility] Blood specimen (specimen) 11/26/2015 6:02 EST us Mei Goodwin MD BLOOD BANK TESTS Final Resul t Performing Organization Address City/State/[facility] Co de Phone Number [facility] [address] [place] [address] * (ABNORMAL) GLUCOSE, GLUCOMETER (11/26/2015 5:38 EST) Glucose, Fingerstick 150(H) 70 - 100 mg/dl 11/26/2015 6:12 EST [facility] Sign Artist ID [id number] 11/26/2015 6:12 EST [facility] Comment:[facility] BLOOD SPECIMEN / Unknown 11/26/2015 5:38 EST 11/26/2015 6:12 EST us Kim Waddell MD CHEMISTRY & BLOOD GAS ORDERA BLES Final Result Performing Organization Address [facility] Co de Phone Number [facility] [address] [place] [address] * BLOOD GASES, CORD VENOUS (11/26/2015 2:30 EST) pH, Cord blood eugenia 7.28 7.25 - 7.45 11/26/2015 2:39 EST [facility] PCO2, Cord blood 41 mmHg 11/26/2015 2:39 EST [facility] PO2, Cord bld eugenia 25 17 - 41 mmHg 11/26/2015 2:39 [facility] tCO2, Cord blood 20 14 - 22 mEq/L 11/26/2015 2:39 [facility] Base Deficit 7.3 11/26/2015 2:39 [facility] BLOOD SPECIMEN / Unknown 11/26/2015 2:30 EST 11/26/2015 2:35 EST Kim Waddell MD GEN LAB UNIT COLLECT ORDERAB LES Final Result Performing Organization Address City/[facility] Co de Phone Number [facility] [address] [place] [address] * BLOOD GASES, CORD ARTERIAL (11/26/2015 2:30 EST) pH, Cord blood art 7.24 7.18 - 7.38 11/26/2015 2:41 EST [facility] PCO2, Cord blood 49 mmHg 11/26/2015 2:41 [facility] PO2, Cord bld art 19 6 - 30 mmHg 11/26/2015 2:41 [facility] tCO2, Cord blood 22 14 - 22 mEq/L 11/26/2015 2:41 [facility] Base Deficit 6.9 11/26/2015 2:41 [facility] Blood specimen (specimen) BLOOD SPECIMEN / Unknown 11/26/2015 2:30 EST 11/26/2015 2:35 EST Kim Waddell MD GEN LAB UNIT COLLECT ORDERAB LES Final Result [facility] [address] [place] [address] * TYPE AND SCREEN (11/25/2015 22:51 EST) Antibody Screen Negative [facility] Specimen Expires: 11/28/2015 @ 23:59 [facility] ABO O [facility] Rh Factor Negative [facility] 11/25/2015 22:5 1 EST Kim Waddell MD BLOOD BANK TESTS Final Resul t Performing Organization Address [facility]/ZIP Co de Phone Number [facility] [address] [place] [address] * BLOOD BANK SPECIMEN HOLD (11/25/2015 15:36 EST) Hold BB Spec will exp at 23:59, 3 days from collect date [facility] Blood specimen (specimen) 11/25/2015 15:36 EST Greer Seay MD BLOOD BANK TESTS Final Result Performing Organization Address City/[facility] Co de Phone Number [facility] [address] [place] [address] * HEMAGRAM (11/25/2015 12:30 EST) WBC 10.13 4.0 - 12.4 K/cmm 11/25/2015 15:53 EST [facility] RBC 4.22 3.86 - 5.04 M/cmm 11/25/2015 15:53 EST [facility] Hemoglobin 12.7 11.6 - 15.2 gm/dl 11/25/2015 15:53 EST [facility] HCT 37.9 34.9 - 44.4 % 11/25/2015 15:53 EST [facility] MCV 90 81 - 98 fl 11/25/2015 15:53 EST [facility] MCH 30.1 26.7 - 33.3 pg 11/25/2015 15:53 [facility] MCHC 33.5 32.1 - 35.9 gm/dl 11/25/2015 15:53 [facility] RDW-CV 13.3 11.7 - 14.6 % 11/25/2015 15:53 [facility] RDW-SD 43.8 37.6 - 50.3 fl 11/25/2015 15:53 [facility] PLT 240 141 - 377 K/cmm 11/25/2015 15:53 [facility] Comment:Note new reference r nel effective 11/02/15 MPV 12.6 9.5 - 12.7 fl 11/25/2015 15:53 [facility] Comment:Note new reference r nel effective 11/02/15 Blood specimen (specimen) BLOOD SPECIMEN / Unknown 11/25/2015 12:30 EST 11/25/2015 15:46 EST Greer Seay MD HEMATOLOGY & PF4 ORDER JANI Final Result [facility] [address] [place] [address] documented in this encounter Visit Diagnoses Diagnosis Encounter for supervision of normal first in third trimester- Primary Supervision of normal first Encounter for supervision of normal first in third trimester Supervision of normal first documented in this encounter Administered Medications Inactive Administered Medications - up to 3 most recent administrations Medication Order MAR Action Action Date Dose Rate Site acetaminophen (TYLENOL) tablet 1,000 mg 1,000 mg, oral, EVERY 6 HOURS, 8 doses, First dose (after last modification) on 11/28/15 at 1200, Last dose on 11/30/15 at 0600 Given 11/29/2015 13:58 EST 1,000 mg Given 11/29/2015 8:16 EST 1,000 mg Given 11/29/2015 2:16 EST 1,000 mg acetaminophen (TYLENOL) tablet 325-650 mg 325-650 mg, oral, EVERY 4 HOURS PRN, Starting on Renee 11/26/15 at 0602, Until 11/28/15 at 1141, Pain, Routine Given 11/28/2015 9:27 EST 650 mg Given 11/28/2015 5:29 EST 650 mg Given 11/28/2015 1:34 EST 650 mg acetaminophen (TYLENOL) tablet 650 mg 650 mg, oral, PRN, Starting on Mon11/25/15 at 1428, Until Mon11/26/15 at 0602, Pain, , Routine Given 11/26/2015 1:20 EST 650 mg Given 11/25/2015 19:41 EST 650 mg ampicillin (OMNIPEN) 2 g in sodium chloride 0.9 % 100 mL infusion 2 g (2,000 mg), intravenous, Administer over 30 Minutes, EVERY 6 HOURS, 8 doses, First dose on Mon11/25/15 at 2345, Last dose on Mon11/27/15 at 1745, Routine Given 11/25/2015 23:42 EST 2 g ampicillin (OMNIPEN) 2 g in sodium chloride 0.9 % 100 mL infusion 2 g (2,000 mg), intravenous, Administer over 30 Minutes, EVERY 6 HOURS, 1 dose, First dose (after last modification) on Renee 11/26/15 at 0615, Routine Given 11/26/2015 7:4 2 EST 2 g ampicillin (OMNIPEN) 2 g in sodium chloride 0.9 % 100 mL infusion 2 g (2,000 mg), intravenous, Administer over 30 Minutes, EVERY 6 HOURS, 7 doses, First dose (after last reorder) on Mon11/26/15 at 1515, Last dose on Mon11/28/15 at 0315, Routine Given 11/28/2015 4:10 EST 2 g Given 11/27/2015 21:40 EST 2 g Given 11/27/2015 14:59 EST 2 g bupivacaine-fentanyl in NS 0.0625 %-2 mcg/mL 250 mL epidural epidural, CONTINUOUS, Starting on Mon11/25/15 at 1815, Until Mon11/26/15 at 0509, PCEA Dose: 8 mL LOCKOUT Interval: 10 minutes ONE HOUR Dose Limit: 36 mL BASAL Rate: 10 mL/hr, Routine, Recovery (only) Rate Documented 11/25/2015 23:30 EST docusate sodium (COLACE) capsule 100 mg 100 mg, oral, 2 TIMES DAILY PRN, Starting on Mon11/26/15 at 0602, Until Mon11/29/15 at 2050, Constipation, Routine Given 11/29/2015 13:59 EST 100 mg Given 11/29/2015 2:15 EST 100 mg Given 11/28/2015 9:27 EST 100 mg gentamicin (GARAMYCIN) 112 mg in sodium chloride (NS) 0.9 % 50 mL IVPB 112 mg (rounded from 110.25 mg = 1.5 mg/kg ? 73.5 kg), intravenous, Administer over 30 Minutes, EVERY 8 HOURS, 2 doses, First dose on Mon11/25/15 at 2345, Last dose on Mon11/26/15 at 0745, Routine Given 11/26/2015 0:14 EST 112 mg gentamicin (GARAMYCIN) 368 mg in sodium chloride (NS) 0.9 % 50 mL IVPB 368 mg (rounded from 367.5 mg = 5 mg/kg ? 73.5 kg), intravenous, Administer over 30 Minutes, EVERY 24 HOURS, 1 dose, First dose (after last modification) on Mon11/26/15 at 0800, Routine Given 11/26/2015 8:57 EST 368 mg gentamicin (GARAMYCIN) 368 mg in sodium chloride (NS) 0.9 % 50 mL IVPB 368 mg (rounded from 367.5 mg = 5 mg/kg ? 73.5 kg), intravenous, Administer over 30 Minutes, EVERY 24 HOURS, 1 dose, First dose (after last reorder) on Mon11/27/15 at 0900, Routine Given 11/27/2015 9:22 EST 368 mg HYDROmorphone (DILAUDID) tablet 2 mg 2 mg, oral, EVERY 4 HOURS PRN, Starting on Mon11/26/15 at 0417, Until Mon11/27/15 at 0416, Pain, Routine Given 11/27/2015 1:43 EST 2 mg Given 11/26/2015 21:49 EST 2 mg Given 11/26/2015 17:33 EST 2 mg HYDROmorphone (DILAUDID) tablet 2 mg 2 mg, oral, EVERY 4 HOURS PRN, Starting on 11/28/15 at 1012, Until 11/29/15 at 2050, Pain, Routine Given 11/29/2015 13:58 EST 2 mg Given 11/29/2015 10:10 EST 2 mg Given 11/29/2015 6:16 EST 2 mg HYDROmorphone (DILAUDID) tablet 2-4 mg 2-4 mg, oral, EVERY 4 HOURS PRN, Starting on Mon11/27/15 at 0508, Until Mon11/27/15 at 0521, Pain, Routine Given 11/27/2015 5:52 EST 4 mg HYDROmorphone (DILAUDID) tablet 2-4 mg 2-4 mg, oral, EVERY 4 HOURS PRN, Starting on Mon11/27/15 at 0800, Until Mon11/28/15 at 0759, Pain, Routine Given 11/28/2015 5:29 EST 4 mg Given 11/28/2015 1:34 EST 4 mg Given 11/27/2015 21:38 EST 4 mg ibuprofen (MOTRIN) tablet 400 mg 400 mg, oral, PRN, Starting on Mon11/25/15 at 1428, Until Mon11/26/15 at 0602, Pain, , Routine Given 11/26/2015 2:50 EST 400 mg ibuprofen (MOTRIN) tablet 400 mg 400 mg, oral, EVERY 4 HOURS PRN, Starting on Mon11/26/15 at 0602, Until Mon11/28/15 at 1141, Pain, Routine Given 11/28/2015 9:27 EST 400 mg Given 11/28/2015 5:29 EST 400 mg Given 11/28/2015 1:34 EST 400 mg ibuprofen (MOTRIN) tablet 600 mg 600 mg, oral, EVERY 6 HOURS, 8 doses, First dose (after last modification) on 11/28/15 at 1530, Last dose on Mon11/30/15 at 0930, Routine Given 11/29/2015 8:16 EST 600 mg Given 11/29/2015 2:16 EST 600 mg Given 11/28/2015 20:30 EST 600 mg lactated ringers (LR) infusion at 150 mL/hr, intravenous, CONTINUOUS, Starting on Mon11/25/15 at 1845, Until Mon11/26/15 at 0602, Routine Rate Change 11/26/2015 2:30 EST 200 mL /hr New Bag 11/26/2015 1:45 EST 999 mL/hr Rate Documented 11/25/2015 23:31 EST 200 mL/hr multivitamin vit-iron fumarate-FA (STUARTNATAL) 27 mg iron- 1 mg tablet 1 Tab 1 Tablet, oral, DAILY, First dose on Renee16 at 0900, Until Discontinued, Routine Given 11/28/2015 9:27 EST 1 Tablet oxytocin in lactated ringers 30 units/500 ml 200 mL/hr, intravenous, Once (Without Time Specified), 1 dose, Starting on Mon11/25/15 at 1428, Until Renee 11/26/15 at 0206, Routine Given 11/26/2015 2:06 EST 12 Units/hr 200 mL/hr oxytocin in lactated ringers 30 units/500 ml 135 mL/hr, intravenous, Once (Without Time Specified), 1 dose, Starting on Mon11/25/15 at 1428, Until Renee 11/26/15 at 0311, Routine Given 11/26/2015 3:11 EST 8.1 Units/hr 135 mL/hr oxytocin in lactated ringers 30 units/500 ml 1-30 winnie-units/min (1-30 mL/hr), intravenous, CONTINUOUS, Starting on Mon11/25/15 at 2130, Until Mon11/26/15 at 0602, Routine Rate Change 11/25/2015 23:07 EST 9 winnie-units/min 9 mL/hr Rate Change 11/25/2015 22:30 EST 7 winnie-units/min 7 mL/hr Rate Change 11/25/2015 22:00 EST 4 winnie-units/min 4 mL/hr PEG 3350-Electrolytes (MIRALAX) packet 17 g 17 g, oral, DAILY, First dose on Mon11/26/15 at 0900, Until Discontinued, Routine Given 11/29/2015 15:07 EST 17 g Given 11/28/2015 15:45 EST 17 g Given 11/27/2015 10:00 EST 17 g Additional Administered Medications Medication Order MAR Action Action Date Dose Rate Site Rho(D) Immune Globulin IM Intramuscular Given 11/28/2015 1,500 Int'l Units Left Glut eus Medius/Ventroglute al documented in this encounter Discontinued Medications Medication Sig Discontinue Reason Start Date End Da te HYDROCODONE/ACETAMINOPHE N (VICODIN ORAL) Take 1 Tab by mouth as needed 11/25/2015 guaifenesin-codeine (GUAIFENESIN AC) 100-10 mg/5 mL liquid Take 5 mL by mouth at bedtime as needed for Cough. 08/10/2014 11/25/2015 ibuprofen (MOTRIN) 200 mg tablet Take 600 mg by mouth every 6 hours. 11/25/2015 PSEUDOEPHEDRINE HCL (SUDAFED 12 HOUR ORAL) Take by mouth. 6 guaiFENesin (ROBITUSSIN) 100 mg/5 mL liquid Take 200 mg by mouth every 4 hours. 11/25/2015 DIAZepam (VALIUM) 2 mg tablet Take 1-2 Tabs by mouth every 8 hours as needed (for spasm). 06/25/2014 11/25/2015 ibuprofen (MOTRIN) 400 mg tablet Take 1 Tab by mouth every 4 hours as needed for Pain 11/28/2015 11/29/2015 acetaminophen (TYLENOL) 325 mg tablet Take 1-2 Tabs by mouth every 4 hours as needed for Pain 11/28/2015 11/29/2015 ibuprofen (MOTRIN) 600 mg tablet Take 1 Tab by mouth every 6 hours 11/29/2015 11/29/2015 HYDROmorphone (DILAUDID) 2 mg tablet Take 1-2 Tabs by mouth every 4 hours as needed for Pain Daily Max: 24 mg 11/28/2015 11/29/2015 documented as of this encounter Historical Medications * This list may reflect changes made after this encounter. HYDROCODONE/ACET AMINOPHEN (VICODIN ORAL) Take 1 Tab by mouth as needed 11/25/2015 multivitamin vit-iron fumarate-FA (STUARTNATAL) 27 mg iron- 1 mg tablet tablet Take 1 Tab by mouth daily. Reported on 02/09/2017 08/21/2017 added in this encounter Active and Recently Administered Medications Times are shown in EST. Scheduled Medication Order 11/27/2015 11/28/2015 11/29/2015 acetaminophen (TYLENOL) tablet 1,000 mg 1,000 mg, oral, EVERY 6 HOURS, 8 doses, First dose (after last modification) on 11/28/15 at 1200, Last dose on 11/30/15 at 0600 1429 (Given - Provider: Caro King RN - Comment: tylenol last give at 09:27)2030 (Given - Provider: rEmelinda Diaz RN) 0000 (Not Given - Provider: Diann Joshua RN - Reason: Other - Comment: not due at this time)0216 (Given - Provider: Diann Joshua RN)0600 (Not Given - Provider: Diann Joshua RN - Reason: Other - Comment: not due at this time)0816 (Given - Provider: Caro King RN)1200 (Canceled Entry - Provider: Caro King RN)1358 (Given - Provider: Caro King, LAZARA)1800 (Canceled Entry - Provider: Batch Job User Admin - Comment: Automatically canceled at discontinue of medication order) ampicillin (OMNIPEN) 2 g in sodium chloride 0.9 % 100 mL infusion (COMPLETED) 2 g (2,000 mg), intravenous, Administer over 30 Minutes, EVERY 6 HOURS, 7 doses, First dose (after last reorder) on Renee 11/26/15 at 1515, Last dose on 11/28/15 at 0315, Routine 0412 (Given - Provider: Barbara Jean RN)1011 (Given - Provider: Payton Oneil RN)1459 (Given - Provider: Payton Oneil RN)2140 (Given - Provider: Varsha Portillo RN) 0410 (Given - Provider: Barbara Jean RN) gentamicin (GARAMYCIN) 368 mg in sodium chloride (NS) 0.9 % 50 mL IVPB (COMPLETED) 368 mg (rounded from 367.5 mg = 5 mg/kg ? 73.5 kg), intravenous, Administer over 30 Minutes, EVERY 24 HOURS, 1 dose, First dose (after last reorder) on Mon11/27/15 at 0900, Routine 0922 (Given - Provider: Payton Oneil RN) ibuprofen (MOTRIN) tablet 600 mg 600 mg, oral, EVERY 6 HOURS, 8 doses, First dose (after last modification) on 11/28/15 at 1530, Last dose on 11/30/15 at 0930, Routine 1428 (Given - Provider: Caro King RN)1530 (Canceled Entry - Provider: Caro King RN)2030 (Given - Provider: Ermelinda Diaz RN) 0216 (Given - Provider: Diann Joshua RN)0330 (Not Given - Provider: Diann Joshua RN - Reason: Other - Comment: not due at this time)0816 (Given - Provider: Caro King RN)0930 (Canceled Entry - Provider: Caro King RN)1530 (Canceled Entry - Provider: Caro King RN) multivitamin vit-iron fumarate-FA (STUARTNATAL) 27 mg iron- 1 mg tablet 1 Tab (CANCELED) 1 Tablet, oral, DAILY, First dose on Renee 11/26/15 at 0900, Until Discontinued, Routine 0900 (Not Given - Provider: Payton Oneil RN - Reason: Patient/family refused) 0927 (Given - Provider: Caro King RN) 0821 (Not Given - Provider: Caro King RN - Reason: Patient/family refused) PEG 3350-Electrolytes (MIRALAX) packet 17 g (CANCELED) 17 g, oral, DAILY, First dose on Renee 11/26/15 at 0900, Until Discontinued, Routine 1000 (Given - Provider: Payton Oneil RN) 1545 (Given - Provider: Caro King RN) 0819 (Not Given - Provider: Caro King RN - Reason: Other - Comment: wants to wait)1507 (Given - Provider: Caro King RN) PRN Medication Order 11/27/2015 11/28/2015 11/29/2015 acetaminophen (TYLENOL) tablet 325-650 mg (CANCELED) 325-650 mg, oral, EVERY 4 HOURS PRN, Starting on Renee 11/26/15 at 0602, Until 11/28/15 at 1141, Pain, Routine 0143 (Given - Provider: Barbara Jean RN)0551 (Given - Provider: Barbara Jean RN)0941 (Given - Provider: Payton Oneil RN)1335 (Given - Provider: Payton Oneil RN)1755 (Given - Provider: Julieta Worley RN)2138 (Given - Provider: Varsha Portillo RN) 0134 (Given - Provider: Barbara Jean RN)0529 (Given - Provider: Barbara Jean RN)0927 (Given - Provider: Caro King RN) docusate sodium (COLACE) capsule 100 mg 100 mg, oral, 2 TIMES DAILY PRN, Starting on Renee 11/26/15 at 0602, Until 11/29/15 at 2050, Constipation, Routine 0941 (Given - Provider: Payton Oneil RN)1755 (Given - Provider: Julieta Worley RN) 0927 (Given - Provider: Caro King RN) 0215 (Given - Provider: Diann Joshua RN)1359 (Given - Provider: Caro King RN) HYDROmorphone (DILAUDID) tablet 2 mg () 2 mg, oral, EVERY 4 HOURS PRN, Starting on Renee 11/26/15 at 0417, Until 11/27/15 at 0416, Pain, Routine 0143 (Given - Provider: Barbara Jean RN) HYDROmorphone (DILAUDID) tablet 2 mg (CANCELED) 2 mg, oral, EVERY 4 HOURS PRN, Starting on 11/28/15 at 1012, Until 11/29/15 at 2050, Pain, Routine 1019 (Given - Provider: Caro King RN)1410 (Given - Provider: Caro King RN)1810 (Given - Provider: Caro King RN)2200 (Given - Provider: Ermelinda Diaz RN) 0215 (Given - Provider: Diann Joshua RN)0616 (Given - Provider: Diann Joshua RN)1010 (Given - Provider: Caro King RN)1358 (Given - Provider: Caro King RN) HYDROmorphone (DILAUDID) tablet 2-4 mg (CANCELED) 2-4 mg, oral, EVERY 4 HOURS PRN, Starting on 11/27/15 at 0508, Until 11/27/15 at 0521, Pain, Routine 0552 (Given - Provider: Barbara Jean RN) HYDROmorphone (DILAUDID) tablet 2-4 mg 2-4 mg, oral, EVERY 4 HOURS PRN, Starting on 11/27/15 at 0800, Until 11/28/15 at 0759, Pain, Routine 0940 (Given - Provider: Payton Oneil RN)133 (Given - Provider: Payton Oneil RN)175 (Given - Provider: Julieta Worley, LAZARA)213 (Given - Provider: Varsha Portillo, LAZARA) 0134 (Given - Provider: Barbara Jean RN)0529 (Given - Provider: Barbara Jean RN) ibuprofen (MOTRIN) tablet 400 mg (CANCELED) 400 mg, oral, EVERY 4 HOURS PRN, Starting on Renee 11/26/15 at 0602, Until 11/28/15 at 1141, Pain, Routine 0143 (Given - Provider: Barbara Jean RN)0552 (Given - Provider: Barbara Jean RN)0941 (Given - Provider: Payton Oneil RN)133 (Given - Provider: Payton Oneil RN)175 (Given - Provider: Julieta Worley RN)213 (Given - Provider: Varsha Portillo, LAZARA) 0134 (Given - Provider: Barbara Jean RN)0529 (Given - Provider: Barbara Jean RN)0927 (Given - Provider: Caro King RN) documented in this encounter Orders Medications Ordered That Say ht Not Have Been Administered Count Last Ordered Date First Ordered Date magnesium hydroxide (MILK OF MAGNESIA) 400 mg/5 mL suspension 30 mL 1 11/29/2015 calcium carbonate (TUMS) 200 mg calcium (500 mg) per chewable tablet tablet,chewable 1-2 Tab 1 11/26/2015 lansinoh HPA lanolin 1 11/26/2015 oxyCODONE (ROXICODONE) immed iate release tablet 5 mg 1 11/26/2015 albuterol inhaler 2 Puff 1 11/25/2015 carboprost (HEMABATE) intram uscular injection 250 mcg 1 11/25/2015 methylergonovine (METHERGINE ) injection 200 mcg 1 11/25/2015 misoprostol (CYTOTEC) tablet 200 mcg 12/2015 misoprostol (CYTOTEC) tablet 800 mcg 1 12/2015 Diet Count Last Ordered Date First Orde red Date DISCHARGE DIET 1 11/28/2015 Nursing Count Last Ordered Date First Orde red Date ACTIVITY INSTRUCTIONS 3 11/28/2015 BATHING INSTRUCTIONS 2 11/28/2015 Consult Count Last Ordered Date First Orde red Date CONSULT 1 11/28/2015 IV Count Last Ordered Date First Orde red Date IV REQUEST 1 11/27/2015 Admission Count Last Ordered Date First Orde red Date STATUS: NON-MEDICARE OB INPA TIENT ADMISSION 1 11/25/2015 Transfer Count Last Ordered Date First Orde red Date NOTIFY PPS OF DISCHARGE COMPLETE 1 11/29/19 16 PPS NOTIFICATION OF PATIENT ARRIVAL ON UNIT 1 11/26/2015 TEACHING SERVICE 1 11/26/2015 Discharge Count Last Ordered Date First Orde red Date DISCHARGE PATIENT 1 11/29/2015 Legal Count Last Ordered Date First Orde red Date MISCELLANEOUS DISCHARGE INSTRUCTIONS 3 03/2016 Transfuse Count Last Ordered Date First Orde red Date ADMINISTER RHOGAM (RHIG) 300 MCG 1 11/28/2015 documented in this encounter Care Teams Nutter Up Relationship Specialty Start Date End Date None, Provider PCP - General 06/25/14 08/06/23 documented as of this encounter
--- OUTSIDE RECORDS SUMMARY | 2024-11-10 02:18 | XMS_ITS | Encounter Summary ---
Author Organization [facility] Address [address] [place] [address] Care Team Providers Care Instrumentation Designer Name Role Phone Unknown, Provider MD Primary Care Provider Unava ilable Encounter Details Date Type Department Care Team (Late st Contact Info) Description 02/13/2013 Results Only [facility] Laboratory Services - [facility] ([facility]) [address] [place] [address] Anabel Ingram MD [address] [place] [phone] Social History Tobacco Use Types Packs/Day Years [...] Description 11/18/2024 8:15 EST Office Visit [facility] Pelvic Medicine and Reconstructive Surgery - Medical Office Building [facility] [address] [place] [address] [phone] Julia Terrell PA-C [address] [facility] Medical Office Building, [address] [place] [phone] 11/25/2024 8:00 EST Rehab Therapy Visit [facility] Rehabilitation Therapy - Medical Office Building [address] [place] [address] Cira Jackson DPT [address] [place] [address], [facility], [address] [place] [phone] 12/02/2024 8:00 EST Rehab Therapy Visit [facility] Rehabilitation Therapy - Medical Office Building [address] [place] [address] Cira Jackson, DPT [address] [place] [address], [facility], [address] [place] [phone] 12/09/2024 8:00 EST Rehab Therapy Visit [facility] Rehabilitation Therapy - Medical Office [address] [address] Cira Jackson DPT [address] [place] [address], [facility], [address] [place] [phone] 12/16/2024 9:00 EST Rehab Therapy Visit [facility] Rehabilitation Therapy - Medical Office [address] [address] Cira Jackson DPT [address] [place] [address], [facility], [address] [place] [phone] 12/23/2024 9:00 EST Rehab Therapy Visit [facility] Rehabilitation Therapy - Medical Office Building [address] [place] [address] Cira Jackson, DPT [address] [place] [address], [facility], [address] [place] [phone] documented as of this encounter Procedures Procedure Name Priority Date/Time Associated Diagnosis Comments PAP TEST- RESULT ONLY Routine 02/13/2013 0:00 EDT documented in this encounter Results * PAP TEST- RESULT ONLY (02/13/2013 0:00 EDT) Pathology Report: CYTOPATHOLOGY REPORT Reports generated via electronic interface contain original data; however they are lacking the format of the original report. Caution should be taken when reading/interpreti ng unformatted reports. Name: ? YE MEYERS ? Accession #: ? [id number] : ? 1990 (Age: 22) ??F ?Collect Date: ? 02/13/2013 Location: ? [facility] ? Receive Date: ? 02/18/2013 Provider: ?ANABEL INGRAM MD Copy to: ? Specimen/Source: ?Pap Test, Cervix, ThinPrep Imaging System with manual evaluation Last Menstrual Period: ? 3/?/13 ? SPECIMEN ADEQUACY ? Satisfactory for Evaluation - transformation zone component present GENERAL CATEGORIZATION ? Negative for Intraepithelial Lesion or Malignancy ? Document reviewed and electronically signed by: ? DORON Cavazos(ASCP) ? Report Date: ??02/20/2013 13:10 End of Report [facility] 02/13/2013 02/18/2013 us Anabel Ingram MD PATHOLOGY ORDERABLES Final Resul t [facility] [address] [place] [address] documented in this encounter Visit Diagnoses Not on filedocumented in this encounter Care Teams Instrumentation Designer Relationship Specialty Start Date End Date Unknown, Provider, PCP - General 06/08/09 06/24/14 documented as of this encounter
--- OUTSIDE RECORDS SUMMARY | 2024-11-10 02:18 | XMS_ITS | Encounter Summary ---
Author Organization [facility] Address [address] [place] [address] Care Team Providers Care Saddle Cutter Name Role Phone None, Provider Primary Care Provider Unavailabl e Encounter Details Date Type Department Care Team (Late st Contact Info) Description 11/06/2018 Results Only Imaging [facility] [phone] HemmettMartha DC [address] [place] [address] Social History Tobacco Use Types Packs/Day Years [...] 11/18/2024 8:15 EST Office Visit [facility] Pelvic Medicine and Reconstructive Surgery - Medical Office [facility] [address] [place] [phone] Julia Terrell PA-C [address] [place] [address] Medical Office [facility], [address] [place] [phone] 11/25/2024 8:00 EST Rehab Therapy Visit [facility] Rehabilitation Therapy - Medical Office Building [address] [place] [address] Cira Jackson DPT [address] [place] [address], [address] [place] [phone] 12/02/2024 8:00 EST Rehab Therapy Visit [facility] Rehabilitation Therapy - Medical Office Building [address] [place] [address] Cira Jackson DPT [address] [place] [address], [address] [place] [phone] 12/09/2024 8:00 EST Rehab Therapy Visit [facility] Rehabilitation Therapy - Medical Office Building [address] [place] [address] Cira Jackson DPT [address] [place] [address], [facility], [address] [place] [phone] 12/16/2024 9:00 EST Rehab Therapy Visit [facility] Rehabilitation Therapy - Medical Office Building [address] [place] [address] Cira Jackson DPT [facility], [facility], [address] [place] [phone] 12/23/2024 9:00 EST Rehab Therapy Visit [facility] Rehabilitation Therapy - Medical Office Building [address] [place] [address] Cira Jackson DPT [address] [place] [address], [facility], [address] [place] [phone] documented as of this encounter Procedures Procedure Name Priority Date/Time Associated Diagnosis Comments SACROILIAC JOINTS 1 OR 2 VIEWS 11/06/2018 15:10 EST SACRUM COCCYX 2 OR MORE VIEWS 11/06/2018 15:10 EST documented in this encounter Results * SACRUM COCCYX 2 OR MORE VIEWS (11/06/2018 15:10 EST) Anatomical Region Laterality Modality Other 11/06/2018 15:1 0 EST 11/12/2018 8:43 EST Narrative 11/12/2018 8:43 EST SACROILIAC JOINTS 1 OR 2 VIEWS, SACRUM COCCYX 2 OR MORE VIEWS ?? 11/06/2018 3:10 PM SIGNS AND SYMPTOMS/COMMENTS: Chronic + 3 yrs localized R > L SI pain. Hx of suspected coccyx fracture with childbirth 3 years ago. Assess orientation coccyx. COMPARISON: None. FINDINGS: AP and lateral views of the sacrum and coccyx as well as oblique views of the SI joints show no evidence of acute fracture. The SI joints are grossly congruent and symmetric, no discrete erosions are seen. The pubic symphysis also appears congruent. There is angulation to the left of the midline of the lower coccyx, better seen in the AP view of the sacrum, in addition there is retrolisthesis of one of the coccygeal segments seen in the lateral view. Mineralization is age appropriate. Soft tissues are grossly unremarkable. Procedure Note Pranav Jewell MD - 11/12/2018 SACROILIAC JOINTS 1 OR 2 VIEWS, SACRUM COCCYX 2 OR MORE VIEWS 11/06/2018 3:10 PM SIGNS AND SYMPTOMS/COMMENTS: Chronic + 3 yrs localized R > L SI pain. Hx of suspected coccyx fracture with childbirth 3 years ago. Assess orientation coccyx. COMPARISON: None. FINDINGS: AP and lateral views of the sacrum and coccyx as well as oblique views of the SI joints show no evidence of acute fracture. The SI joints are grossly congruent and symmetric, no discrete erosions are seen. The pubic symphysis also appears congruent. There is angulation to the left of the midline of the lower coccyx, better seen in the AP view of the sacrum, in addition there is retrolisthesis of one of the coccygeal segments seen in the lateral view. Mineralization is age appropriate. Soft tissues are grossly unremarkable. Martha Mabry DC [facility] DIAGNOSTIC IMAGING ORDERABL ES Final Result * SACROILIAC JOINTS 1 OR 2 VIEWS (11/06/2018 15:10 EST) Anatomical Region Laterality Modality Other 11/06/2018 15:1 0 EST 11/12/2018 8:43 EST Narrative 11/12/2018 8:43 EST SACROILIAC JOINTS 1 OR 2 VIEWS, SACRUM COCCYX 2 OR MORE VIEWS ?? 11/06/2018 3:10 PM SIGNS AND SYMPTOMS/COMMENTS: Chronic + 3 yrs localized R > L SI pain. Hx of suspected coccyx fracture with childbirth 3 years ago. Assess orientation coccyx. COMPARISON: None. FINDINGS: AP and lateral views of the sacrum and coccyx as well as oblique views of the SI joints show no evidence of acute fracture. The SI joints are grossly congruent and symmetric, no discrete erosions are seen. The pubic symphysis also appears congruent. There is angulation to the left of the midline of the lower coccyx, better seen in the AP view of the sacrum, in addition there is retrolisthesis of one of the coccygeal segments seen in the lateral view. Mineralization is age appropriate. Soft tissues are grossly unremarkable. Procedure Note Pranav Jewell MD - 11/12/2018 SACROILIAC JOINTS 1 OR 2 VIEWS, SACRUM COCCYX 2 OR MORE VIEWS 11/06/2018 3:10 PM SIGNS AND SYMPTOMS/COMMENTS: Chronic + 3 yrs localized R > L SI pain. Hx of suspected coccyx fracture with childbirth 3 years ago. Assess orientation coccyx. COMPARISON: None. FINDINGS: AP and lateral views of the sacrum and coccyx as well as oblique views of the SI joints show no evidence of acute fracture. The SI joints are grossly congruent and symmetric, no discrete erosions are seen. The pubic symphysis also appears congruent. There is angulation to the left of the midline of the lower coccyx, better seen in the AP view of the sacrum, in addition there is retrolisthesis of one of the coccygeal segments seen in the lateral view. Mineralization is age appropriate. Soft tissues are grossly unremarkable. us Martha Hemmett [facility] DIAGNOSTIC IMAGING ORDERABL ES Final Result documented in this encounter Visit Diagnoses Not on filedocumented in this encounter Care Teams Saddle Cutter Relationship Specialty Start Date End Date None, Provider PCP - General 06/25/14 08/06/23 documented as of this encounter
--- OUTSIDE RECORDS SUMMARY | 2024-11-10 02:18 | XMS_ITS | Encounter Summary ---
Author Organization [facility] Address [address] [place] [address] Care Team Providers Care Dock Manager Name Role Phone None, Provider Primary Care Provider Unavailabl e Encounter Details Date Type Department Care Team ([facility] st Contact Info) Description 11/19/2015 14:42 EST - 11/19/2015 14:43 EST Hospital Encounter [address] [address] Sandra Gordon MD [address] [place] [phone] Discharge Disposition: Home or Self Care Social [...] as of this encounter Discharge Diagnoses Diagnosis Z34.80 Encounter for supervision of other normal , unspecified trimester-Z34.80[ICD-10-CM] Z3A.38 38 weeks gestation of -Z3A.38[ICD-10-CM] O10.013 Pre-existing essential hypertension complicating , third trimester-O10.013[ICD-10-CM] documented in this encounter Medications at Time [...] Medicine and Reconstructive Surgery - Medical Office [address] [address] Julia Terrell PA-C [address] [place] [address] Medical Office [facility], [address] [place] [phone] 11/25/2024 8:00 EST Rehab Therapy Visit [facility] Rehabilitation Therapy - Medical Office Building [address] [place] [address] Cira Jackson DPT [address] [place] [address] [address] [place] [phone] 12/02/2024 8:00 EST Rehab Therapy Visit [facility] Rehabilitation Therapy - Medical Office Building [address] [place] [address] Cira Jackson DPT [address] [place] [address] [address] [place] [phone] 12/09/2024 8:00 EST Rehab Therapy Visit [facility] Rehabilitation Therapy - Medical Office Building [address] [place] [address] Cira Jackson DPT [address] [place] [address], [facility], [address] [place] [phone] 12/16/2024 9:00 EST Rehab Therapy Visit [facility] Rehabilitation Therapy - Medical Office Building [address] [place] [address] Cira Jackson DPT [address] [place] [address], [facility], [address] [place] [phone] 12/23/2024 9:00 EST Rehab Therapy Visit [facility] Rehabilitation Therapy - Medical Office [address] [id number] Cira Jackson DPT [address] [place] [address], [facility], [address] [place] [phone] documented as of this encounter Visit Diagnoses Not on filedocumented in this encounter Care Teams Dock Manager Relationship Specialty Start Date End Date None, Provider PCP - General 06/25/14 08/06/23 documented as of this encounter
--- OUTSIDE RECORDS SUMMARY | 2024-11-10 02:18 | XMS_ITS | Encounter Summary ---
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 Name Role Phone None, Provider Primary Care Provider Unavailabl e Reason for Referral * PT/OT/ST (Routine) - Specialty Report Received Specialty Diagnoses / Procedures Referred By Contac t Referred To Contact Diagnoses Urge urinary incontinence Spastic pelvic floor syndrome Virginia Guerra MD Referral ID Status Reason Start Date Expiration Date Visits Requested Visits Authorized [id number] Specialty Report Received Specialty Services Required 7 1 1 Question Answer Reason for Request: pelvic pain, obturator internus muscle spasms, Urge urinary incontinence Reason for Visit * Reason Comments Urinary Incontinence * Referral (Routine) - Closed Specialty Diagnoses / Procedures Referred By Contac t Referred To Contact Pelvic Medicine Diagnoses Urinary incontinence Santo Laboy MD Phone: tel: fax: Virginia Guerra MD Referral ID Status Reason Start Date Expiration Date Visits Re quested Visits Authorized [id number] Closed 1 1 Encounter Details Date Type Department Care Team (Latest Contact Info) Description 08/21/2017 13:00 EDT Office Visit [facility] Pelvic Medicine and Reconstructive Surgery - Medical Office [facility] [address] [place], [place] [id number] Virginia Guerra MD Spastic pelvic floor syndrome (Primary Dx); Urge urinary incontinence Social History Tobacco Use Types Packs/Day Years [...] Sign Reading Time Taken Comments Blood Pressure 125/74 08/21/2017 1306 EDT Pulse 72 08/21/2017 1306 EDT Temperature - - Respiratory Rate - - Oxygen Saturation - - Inhaled Oxygen Concentration - - Weight 53.5 kg (118 lb) 08/21/2017 1306 EDT Height - - Body Mass Index 20.24 11/25/2015 1307 EST documented in this encounter [...] in this encounter Progress Notes * Virginia Guerra MD - 08/21/2017 1300 EDT H&P CC: Pelvic pain, urinary incontinence HPI: Mine Lynn is a 26 y.o. woman referred by Sandra Gordon MD for consultation, evaluation, and treatment recommendations regarding pelvic pain, urinary incontinence. She describes a long history of pelvic pain, starting at approximately age 17. She reports that when she was in college she was diagnosed with multiple periurethral cysts after reporting pain with intercourse and underwent excision of the periurethral cysts by Dr. Santillan at age 20 at [facility]. Inthe year after the procedure she developed pelvic floor muscle tightness and was referred to pelvicfloor physical therapy at [facility]. They worked on relaxing her muscles and this did improve over time. She thinks that the pain was also worsened by stress at the time. On November 26, 2015 she underwent vaginal delivery of a 9 lbs. 2 oz. baby that was complicated by afractured coccyx. She reports that during the at 7 or 8 months she began to havecoccyx pain and reports that she also had a 50 pound weight gain during the . Shortly after delivery she had pain of her pelvic floor muscles and tailbone as well as urinary incontinence. She was referred to [facility] approximately 6 months after her delivery and underwent 4 sessionsin an attempt to relax the muscles, using breathing exercises and other relaxation techniques. She was told that it would likely get better over time and thus she discontinued the pelvic floor physical therapy. She also reports she used a donut pillow at work for ~8 months after delivery, which helped but she discontinued it. However, she reports that she is having persistent symptoms. She still has continued coccyx pain and vaginal pain. She is unable to sit flat at work. She has dyspareunia and avoids intercourse due tothis. She points to spot externally over her right obturator internus muscle and reports that she has sharp pains in this area. She has bladder symptoms including some urgency and some urinary hesitancy and she does sometimes have urge urinary incontinence. She has frequency but sometimes she can delay 5 or 6 hours without voiding. She reports nocturia 1 time per night. She denies any leakage with cough, laugh, sneeze. She has not tried any anticholinergic medications for her symptoms. During the day she typically drinks half a cup of coffee as well as seltzer or water throughout the day. No soda, only rare alcohol use. In addition to the pelvic floor physical therapy she has tried various medications for the pain. She reports that as a teenager she tried Valium but it made her feel weird. She previously tried Flexeril which helped the pain but caused sedation. She was prescribed Ativan by Dr. Soto which she felt did not help with symptoms and also made her feel weird. She tried scheduled Motrin 600 mg which she felt did not improve the pain and so she stopped. She tried CBD pills which she felt helped the pain but made her tired so she could not take them during the day. What seems to work the best currently is hydrocodone prescribed by Dr. Soto. She typically takes 1.5 tablets in the morning onceor twice per week, especially the time of menses which seems to improve her symptoms. She reports a lifetime history of constipation with bowel movements typically every 2 or 3 days. She is not using any medicines for this. Currently with IUD in place for contraception. She reports that she has had a number of vaginal infection since IUD placement and is considering removal if she gets further infections. Sexually monogamous with her male partner. Review of Systems A 14 point review of systems was obtained (see scanned documents) and was negative except as noted. Constitutional: Weight loss due to stress and bladder issues. Skin: Negative. HENT: Negative. Eyes: Negative. Cardiovascular: Negative. Respiratory: Negative. Gastrointestinal: Constipation. Genitourinary: See HPI. Vaginal discharge, pain, discomfort. Musculoskeletal: Back pain due to tailbone injury. Endo/Heme/Allergies: Negative. Neurological: Negative. Psychiatric: Anxiety, mood swings. PMH PSH Past Medical History: Diagnosis Date ??? Anxiety, generalized Ativan intermittently during ??? Pelvic floor dysfunction Past Surgical History: Procedure Laterality Date ??? OTHER SURGICAL HISTORY 2007 Excision of periurethral cysts at [facility] Social History Family History Social History Substance Use Topics ??? Smoking status: Never Smoker ??? Smokeless tobacco: Never Used ??? Alcohol use No Comment: social Family History Problem Relation Age of Onset ??? Asthma Mother ??? Hypertension Father POB/[employer] Operator Hx: See HPI. , s/p TAB x 2, vacuum-assisted delivery x 1 at 39+6 weeks with 2nd degree laceration (largest baby 9#, 2 oz.). Denies history of abnormal pap smears. Medications Current Outpatient Prescriptions: ??? HYDROcodone-acetaminophen (VICODIN) 5-300 mg tablet, Take 2 Tabs by mouth daily., Disp: , Rfl: Allergies Allergies Allergen Reactions ??? Imitrex [Sumatriptan Succinate] Shortness Of Breath Objective: Physical Exam BP 125/74 Pulse 72 Wt 53.5 kg (118 lb) BMI 20.24 kg/m2 General Appearance: well-developed, normal body habitus Eyes: Extraocular movements intact. Sclera non-icteric. HENT: Normocephalic, atraumatic. Cardiovascular: Regular rate. Respiratory: Respiratory effort normal.. Lymphatic: No inguinal lymphadenopathy Abdomen: Nontender, nondistended, no hernias. No incisions. Musculoskeletal/Extremities: Normal Skin: No rashes, lesions, or ulcers Neuro/Psych: Normal orientation, mood and affect Genitourinary Exam: External Genitalia: Normal external genitals, urethral meatus, perineum. Bartholin's, urethral, and Goodridge's glands: Normal Urethra: No masses, tenderness or scarring Bladder: No masses, tenderness, or distention Vulva:/Perineum: Normal Vagina: Normal appearance, normal estrogen status. No discharge, no lesions. No prolapse. Hypertonic and tender obturator internus muscle bilaterally, minimal discomfort with palpation of levator animuscles. Tender with palpation midline posteriorly over rectum; feels like something is wedged in me. Cervix: Normal appearance. No lesions or discharge. Tenderness with palpation and manipulation of cervix. IUD strings in place. Uterus: Normal size, contour, and position. Nontender with palpation. Adnexa/Parametria: No masses, tenderness, or nodularity Perineal Sensation: Normal Rectal Exam: Deferred Urethral Hypermobility: Absent Assessment Method: Visualization and point Aa During this exam, I was chaperoned by: Marti Angulo LPN. Pelvic floor muscle tenderness: Present Right obturator internus muscle: 7/10 Right levator ani muscle: 4/10 Left levator ani muscle: 0/10 Left obturator internus muscle: 6/10 Results for orders placed or performed in visit on 08/21/17 POCT URINE DIPSTICK Result Value Ref Range Color YELLOW Clarity, UA Clear Glucose Neg Neg Bilirubin Neg Neg Ketones Neg Neg Specific [place] 1.020 1.001 - 1.035 Blood Neg Neg pH 6.5 4.6 - 8.0 Protein Neg Neg Urobilinogen 0.2 0.2 - 1.0 E.U./dl Nitrite Neg Neg Leuk Esterase Neg Neg Tech ID [id number] Ultrasound for PVR: 0 mL Impression & Plan: 26 y.o. woman with spastic pelvic floor dysfunction, coccyx pain, urge urinary incontinence. Complete bladder emptying noted. 1. Pelvic floor muscle spasms - Especially obturator internus. Discussed etiologies of pain, used pelvic model to demonstrate muscles. She has long- standing pelvic pain, though it appears it was likely worsened by her coccyx fracture. I discussed that frequently this does improve after delivery, but as hers is persistent she will need to restart some of the interventions she has discontinued, especially pelvic floor PT and potentially her pillow at work. Management options for levator ani/obturator spasm were discussed with the patient, including pelvic floor physical therapy, heat therapy, or NSAIDs. She has previously failed trials of flexeril and benzodiazepines. -A prescription for PFPT was given, will refer back to [facility]. -Dr. Gordon had discussed referring her to a chiropractor to possibly improve alignment of coccyx; patient cannot remember name of this provider and so will request referral from Dr. Gordon -Would recommend restarting scheduled Motrin 600 mg q6 hours, especially at time of menses -Discussed relaxation techniques, yoga. Patient planning to start this to improve her stress. -I discussed with her that I do not recommend long-term narcotic use for this due to the concern for worsening constipation, which can worsen the pelvic floor muscle spasms -I discussed with her the possibility of proceeding to pelvic floor muscle injections in the OR. I discussed that when spasms occur, they are typically downstream of other dysfunction in the body such as her chronic back/tailbone pain. I discussed that injections seem to work for ~50% of patients, and that she will still need to continue her PFPT as her long-term therapy. She will consider injections in the future but is not interested at this time. 2. Urge urinary incontinence - I discussed how this is related to her pelvic floor muscle spasms. Her muscle spasms are likely worsening or contributing to her incontinence. -I reviewed the behavior modification recommendations for urgency, frequency, and urge urinary incontinence inclusive of : avoidance of bladder irritants, specifically caffeine, citrus, and artificial sweeteners -scheduled voids q 2-3 hours -PT as above -She may consider starting anticholinergic medication in the future but declines for now. 3. Constipation - I suspect this is likely worsening her muscle spasms and incontinence. -Recommend starting a daily fiber supplement Return to clinic in 3 months for follow up or prn. Virginia Guerra MD 08/21/2017 documented in this encounter Plan of Treatment Upcoming Encounters Date Type Department Care Team (Late st Contact Info) Description 11/18/2024 8:15 EST Office Visit [facility] Pelvic Medicine and Reconstructive Surgery - Medical Office [address] [address] Julia Terrell PA-C [address] [place] [address] Medical Office [facility], [address] [place] [phone] 11/25/2024 8:00 EST Rehab Therapy Visit [facility] Rehabilitation Therapy - Medical Office [address] [address] Cira Jackson DPT [address] [place] [address] [address] [place] [phone] 12/02/2024 8:00 EST Rehab Therapy Visit [facility] Rehabilitation Therapy - Medical Office Building [address] [place] [id number] Cira Jackson DPT [address] [place] [address] [address] [place] [phone] 12/09/2024 8:00 EST Rehab Therapy Visit [facility] Rehabilitation Therapy - Medical Office [address] [place] [address] Cira Jackson DPT [address] [place] [address], [facility], [address] [place] [phone] 12/16/2024 9:00 EST Rehab Therapy Visit [facility] Rehabilitation Therapy - Medical Office Building [address] [place] [id number] Cira Jackson DPT [address] [place] [address], [facility], [address] [place] [phone] 12/23/2024 9:00 EST Rehab Therapy Visit [facility] Rehabilitation Therapy - Medical Office [address] [address] Cira Jackson DPT [address] [place] [address], [facility], [address] [place] [phone] Scheduled Referrals Name Type Priority Associated Diagnoses Orde r Schedule AMB CONS/FOLLOW UP PHYSICAL THERAPY Outpatient Referral Routine Urge urinary incontinence Spastic pelvic floor syndrome Ordered: 08/21/2017 documented as of this encounter Procedures Procedure Name Priority Date/Time Associated Diagnosis Comments POCT URINE DIPSTICK, CLINITEK Routine 08/21/2017 13:55 EDT Urge urinary incontinence documented in this encounter Results * POCT URINE DIPSTICK (08/21/2017 13:55 EDT) Color YELLOW 08/21/2017 13:45 EDT [facility] Clarity, UA Clear 08/21/2017 13:45 EDT [facility] Glucose Neg Neg 08/21/2017 13:45 EDT [facility] Bilirubin Neg Neg 08/21/2017 13:45 EDT [facility] Ketones Neg Neg 08/21/2017 13:45 EDT [facility] Specific [place] 1.020 1.001 - 1.035 08/21/2017 13:45 EDT [facility] Blood Neg Neg 08/21/2017 13:45 T [facility] pH 6.5 4.6 - 8.0 08/21/2017 13:45 T [facility] Protein Neg Neg 08/21/2017 13:45 T [facility] Urobilinogen 0.2 0.2 - 1.0 E.U./dl 08/21/2017 13:45 [facility] Nitrite Neg Neg 08/21/2017 13:45 [facility] Leuk Esterase Neg Neg 08/21/2017 13:45 [facility] 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 ID [id number] 08/21/2017 13:45 EDT [facility] Comment:Test performed at [facility] Urine specimen (specimen) URINE / Unknown 08/21/2017 13:55 EDT 08/21/2017 13:45 EDT us Virginia Guerra MD POINT OF CARE TEST ORDERABL ES Final Result [facility] [address] [place] [address] documented in this encounter Visit Diagnoses Diagnosis Spastic pelvic floor syndrome- Primary Other symptoms involving digestive system Urge urinary incontinence Urge incontinence documented in this encounter Discontinued Medications Medication Sig Discontinue Reason Start Date End Da te acetaminophen (TYLENOL) 500 mg tablet Take 2 Tabs by mouth every 6 hours Patient Stopped Taking 11/29/2015 08/21/2017 cyclobenzaprine (FLEXERIL) 5 mg tablet Take 1-2 Tabs by mouth 3 times daily as needed for Muscle Spasms. Patient Stopped Taking 02/09/2017 08/21/2017 ibuprofen (MOTRIN) 600 mg tablet Take 1 Tab by mouth every 6 hours Patient Stopped Taking 11/29/2015 08/21/2017 multivitamin vit-iron fumarate-FA (STUARTNATAL) 27 mg iron- 1 mg tablet tablet Take 1 Tab by mouth daily. Reported on 02/09/2017 Patient Stopped Taking 08/21/2017 documented as of this encounter Historical Medications * This list may reflect changes made after this encounter. HYDROcodone-aceta minophen (VICODIN) 5-300 mg tablet Take 2 Tabs by mouth daily. 10/25/2021 added in this encounter Care Teams Scissors Grinder Relationship Specialty Start Date End Date None, Provider PCP - General 06/25/14 08/06/23 documented as of this encounter
--- OUTSIDE RECORDS SUMMARY | 2024-11-10 02:18 | XMS_ITS | Encounter Summary ---
Author Organization [facility] Address [address] [place] [address] Care Team Providers Care Survey Operations Director Name Role Phone None, Provider Primary Care Provider Unavailabl e Reason for Visit * Reason Comments Cough Encounter Details Date Type Department Care Team (Latest Contact Info) Description 08/10/2014 18:30 EDT - 08/10/2014 19:51 EDT Hospital Encounter [facility] [address] [address] Cookie Garland PA Pharyngitis (Primary Dx); URI (upper respiratory infection) Discharge Disposition: Home or Self Care Social [...] Sign Reading Time Taken Comments Blood Pressure 102/60 08/10/2014 1837 EDT Pulse 78 08/10/2014 1837 EDT Temperature 37.9 ??C (100.3 ??F) 08/10/2014 1837 EDT Respiratory Rate 22 08/10/2014 1837 EDT Oxygen Saturation - - Inhaled Oxygen Concentration - - Weight - - Height - - Body Mass Index - - documented in this encounter Discharge Diagnoses Diagnosis 465.9 ACUTE URI NOS[ICD-9-CM] documented in this encounter Discharge Instructions * Discharge Instructions* Cookie Garland PA - 08/10/2014 19:30 EDT Ibuprofen 600mg and tylenol 650mg every 8 hours for pain. Drink plenty of fluids at least 2-3 quarts of water a day. Albuterol inhaler-2 puffs every 4 hours if needed for wheezing. Robitussin-AC cough medicine-1 teaspoon before bed for cough. Do not drink alcohol or drive with this medication it contains opiate and it is sedating. Followup with primary care provider or return to clinic if symptoms change, persist or worsen. * Attachments The following attachments cannot be sent through Care Everywhere. * URI (UPPER RESPIRATORY INFECTION) ([place]) documented in this encounter Medications at Time [...] mouth. 6 documented as of this encounter Ordered Prescriptions Prescription Sig Dispense Quantity Refills Last Filled Start Date End Date inhalational spacing device (BREATHERITE MDI SPACER) Use with a metered dose inhaler, as directed. May be dispensed with mask as appropriate.. 1 Each 0 08/10/2014 albuterol 90 mcg/actuation inhaler Inhale 2 Puffs as directed every 4 hours. 1 Inhaler 0 08/10/2014 guaifenesin-codein e (GUAIFENESIN AC) 100-10 mg/5 mL liquid Take 5 mL by mouth at bedtime as needed for Cough. 120 mL 0 08/10/2014 6 documented in this encounter Discharge Disposition Disposition Code Departure Means Destination Home or Self Care Car Home documented in this encounter ED Notes * Cookie Garland PA - 08/10/2014 1858 EDT DOS: 08/10/2014 Chief Complaint Patient presents with ??? Cough The patient is a 23 y.o. female who presents today with Cough The history is provided by the patient (23-year-old female complains of five-day history of cough, runny nose, sore throat, fever.). Cough Cough characteristics: Productive Sputum characteristics: Yellow and bloody Severity: Moderate Onset quality: Gradual Duration: 5 days Timing: Constant Progression: Waxing and waning Chronicity: New Smoker: no Context: upper respiratory infection Relieved by: Nothing Worsened by: Lying down Ineffective treatments: Decongestant and cough suppressants Associated symptoms: chills, fever, myalgias, rhinorrhea, sinus congestion, sore throat and wheezing Associated symptoms: no chest pain, no diaphoresis, no ear fullness, no ear pain, no eye discharge,no headaches, no rash and no shortness of breath Risk factors: recent infection Review of Systems Constitutional: Positive for fever, chills, activity change, appetite change and fatigue. Negative for diaphoresis. HENT: Positive for congestion, rhinorrhea and sore throat. Negative for ear discharge, ear pain andmouth sores. Eyes: Negative for discharge. Respiratory: Positive for cough and wheezing. Negative for shortness of breath. Cardiovascular: Negative for chest pain. Gastrointestinal: Negative. Musculoskeletal: Positive for myalgias. Negative for neck stiffness. Skin: Negative for rash. Neurological: Negative for headaches. Psychiatric/Behavioral: Negative. No current facility-administered medications for this encounter. Current Outpatient Prescriptions Medication Sig Dispense Refill ??? albuterol 90 mcg/actuation inhaler Inhale 2 Puffs as directed every 4 hours. 1 Inhaler 0 ??? DIAZepam (VALIUM) 2 mg tablet Take 1-2 Tabs by mouth every 8 hours as needed (for spasm). 20 Tab 0 ??? guaiFENesin (ROBITUSSIN) 100 mg/5 mL liquid Take 200 mg by mouth every 4 hours. ??? guaifenesin-codeine (GUAIFENESIN AC) 100-10 mg/5 mL liquid Take 5 mL by mouth at bedtime as needed for Cough. 120 mL 0 ??? ibuprofen (MOTRIN) 200 mg tablet Take 600 mg by mouth every 6 hours. ??? inhalational spacing device (BREATHERITE MDI SPACER) Use with a metered dose inhaler, as directed. May be dispensed with mask as appropriate.. 1 Each 0 ??? PSEUDOEPHEDRINE HCL (SUDAFED 12 HOUR ORAL) Take by mouth. Allergies Allergen Reactions ??? Imitrex [Sumatriptan Succinate] Shortness Of Breath There are no active problems to display for this patient. Past Medical History Diagnosis Date ??? Pelvic floor dysfunction History Substance Use Topics ??? Smoking status: Never Smoker ??? Smokeless tobacco: Not on file ??? Alcohol Use: 1.5 oz/week 3 drink(s) per week History reviewed. No pertinent family history. BP 102/60 Pulse 78 Temp(Src) 100.3 ??F (37.9 ??C) (Temporal) Resp 22 Physical Exam Nursing note and vitals reviewed. Constitutional: She is oriented to person, place, and time. She appears well- developed and well-nourished. She appears distressed. HENT: Head: Normocephalic and atraumatic. Right Ear: External ear normal. Left Ear: External ear normal. Mouth/Throat: Oropharynx is clear and moist. No oropharyngeal exudate. Eyes: Conjunctivae are normal. Right eye exhibits no discharge. Left eye exhibits no discharge. No scleral icterus. Neck: Normal range of motion. Neck supple. Cardiovascular: Normal rate, regular rhythm and normal heart sounds. Pulmonary/Chest: Effort normal and breath sounds normal. No respiratory distress. She has no wheezes. She has no rales. Musculoskeletal: Normal range of motion. Lymphadenopathy: She has no cervical adenopathy. Neurological: She is alert and oriented to person, place, and time. Skin: Skin is warm and dry. She is not diaphoretic. Psychiatric: She has a normal mood and affect. Consult orders: None PCP: Provider None Results for orders placed during the hospital encounter of 08/10/14 POCT RAPID STREP SCREEN Result Value Range Rapid Strep Test, POC Negative Negative Background Clear? Yes Control Line Present Yes Rgt A + Rgt B= Yellow: Yes Culture Sent to Lab? Yes Radiology orders: None Imaging Results None Procedures Course: A medical screening exam was performed. URI with wheezing and mild hemoptysis. Albuterol inhaler, Robitussin-AC for bedtime. Increase fluids, ibuprofen Tylenol for discomfort and fever, [facility] if symptoms change, persist or worsen. Disposition: Discharged The patient's pain was managed to an adequate level weighing risk vs. benefit of further medications. Upon departure from the [facility], the patient's pain was 0 on a zero to ten scale. Condition at departure from the [facility]: Stable Final diagnoses: URI (upper respiratory infection) Dr. Tanisha Downs was available for consultation during my care of this patient. MDM Number of Diagnoses or Management Options URI (upper respiratory infection): new, no workup Amount and/or Complexity of Data Reviewed Clinical lab tests: ordered and reviewed Review and summarize past medical records: yes 08/10/2014 19:53 * Ermelinda Spence RN - 08/10/2014 0002 EDT Presents with 5 days of productive cough with green and yellow phlegm with occasional blood streaks, SOB, sweats, sore throat, lower back discomfort. Denies: chills, fever, ear pain, abdominal pain. Eating and drinking fine. Has tried Robitussin, Sudafed, Advil with no relief. documented in this encounter Plan of Treatment Upcoming Encounters Date Type Department Care Team (Late st Contact Info) Description 11/18/2024 8:15 EST Office Visit [facility] Pelvic Medicine and Reconstructive Surgery - Medical Office [facility] [address] [place] [id number] Julia Terrell PA-C [address] [facility] Medical Office Building, [address] [place] [phone] 11/25/2024 8:00 EST Rehab Therapy Visit [facility] Rehabilitation Therapy - Medical Office Building [address] [place] [address] Cira Jackson, DPT [address] [place] [address], [facility], [address] [place] [phone] 12/02/2024 8:00 EST Rehab Therapy Visit [facility] Rehabilitation [facility] - Medical Office Building [address] [place] [address] Cira Jackson, DPT [address] [place] [address], [facility], [address] [place] [phone] 12/09/2024 8:00 EST Rehab Therapy Visit [facility] Rehabilitation Therapy - Medical Office Building [address] [place] [address] Cira Jackson, DPT [address] [place] [address], [facility], [address] [place] [phone] 12/16/2024 9:00 EST Rehab Therapy Visit [facility] Rehabilitation Therapy - Medical Office Building [address] [place] [address] Cira Jackson, DPT [address] [place] [address], [address] [place] [phone] 12/23/2024 9:00 EST Rehab Therapy Visit [facility] Rehabilitation Therapy - Medical Office Building [address] [place], [place] [id number] Cira Jackson, DPT [address] [facility], [address] [place] [phone] documented as of this encounter Procedures Procedure Name Priority Date/Time Associated Diagnosis Comments POCT RAPID STREP SCREEN STAT 08/10/2014 19:01 EDT Pharyngitis documented in this encounter Results * POCT RAPID STREP SCREEN (08/10/2014 19:01 EDT) Rapid Strep Test, POC Negative Negative Background Clear? Yes Control Line Present Yes Rgt A + Rgt B= Yellow: Yes Culture Sent to Lab? Yes Specimen of unknown material (specimen) 08/10/2014 19:01 EDT Cookie SHAH POINT OF CARE TEST ORDERABLES Final Result documented in this encounter Visit Diagnoses Diagnosis Pharyngitis- Primary Acute pharyngitis URI (upper respiratory infection) Acute upper respiratory infections of unspecified site documented in this encounter Administered Medications Inactive Administered Medications - up to 3 most recent administrations Medication Order MAR Action Action Date Dose Rate Site acetaminophen (TYLENOL) tablet 650 mg 650 mg, oral, NOW X1, 1 dose, On 08/10/14 at 1900, Routine Given 08/10/2014 19:17 EDT 650 mg ibuprofen (MOTRIN) tablet 400 mg 400 mg, oral, NOW X1, 1 dose, On 08/10/14 at 1900, Routine Given 08/10/2014 19:17 EDT 400 mg documented in this encounter Historical Medications * This list may reflect changes made after this encounter. ibuprofen (MOTRIN) 200 mg tablet Take 600 mg by mouth every 6 hours. 11/25/2015 PSEUDOEPHEDRINE HCL (SUDAFED 12 HOUR ORAL) Take by mouth. 11/25/2015 guaiFENesin (ROBITUSSIN) 100 mg/5 mL liquid Take 200 mg by mouth every 4 hours. 11/25/2015 added in this encounter Active and Recently Administered Medications Times are shown in EDT. Scheduled Medication Order 08/08/2014 08/09/2014 08/10/2014 acetaminophen (TYLENOL) tablet 650 mg (COMPLETED) 650 mg, oral, NOW X1, 1 dose, On 08/10/14 at 1900, Routine 1917 (Given - Provid er: Angela Davila RN) ibuprofen (MOTRIN) tablet 400 mg (COMPLETED) 400 mg, oral, NOW X1, 1 dose, On 08/10/14 at 1900, Routine 1917 (Given - Provid er: Angela Davila RN) documented in this encounter Care Teams Survey Operations Director Relationship Specialty Start Date End Date None, Provider PCP - General 06/25/14 08/06/23 documented as of this encounter
--- OUTSIDE RECORDS SUMMARY | 2024-11-10 02:18 | XMS_ITS | Encounter Summary ---
Author Organization [facility] Address [address] [place] [address] Care Team Providers Care Teacher Of The Deaf Name Role Phone None, Provider Primary Care Provider Unavailabl e Encounter Details Date Type Department Care Team (Late st Contact Info) Description 04/20/2015 7:23 EDT - 04/20/2015 7:25 EDT Hospital Encounter [address] [address] Joe Chakraborty MD [address] [facility], [facility] [address] [place] [phone] Discharge Disposition: Home or Self Care Social [...] Surgery - Medical Office Building [facility] [address] [place] [phone] Julia Terrell PA-C [address] [facility] Medical Office Building, [address] [place] [phone] 11/25/2024 8:00 EST Rehab Therapy Visit [facility] Rehabilitation Therapy - Medical Office Building [address] [place] [address] Cira Jackson DPT 2 [facility], [address] [place] [phone] 12/02/2024 8:00 EST Rehab Therapy Visit [facility] Therapy - Medical Office Building [address] [place], [place] [address] Cira Jackson DPT [address] [place] [address], [facility], [address] [place] [phone] 12/09/2024 8:00 EST Rehab Therapy Visit [facility] Therapy - Medical Office Building [address] [place] [address] Cira Jackson DPT [address] [place] [address], [facility], [address] [place] [phone] 12/16/2024 9:00 EST Rehab Therapy Visit [facility] Therapy - Medical Office Building [address] [place] [address] Cira Jackson DPT [address] [place] [address], [facility], [address] [place] [phone] 12/23/2024 9:00 EST Rehab Therapy Visit [facility] - Medical Office Building [address] [place] [address] Cira Jackson DPT [address] [place] [address], [facility], [address] [place] [phone] documented as of this encounter Procedures Procedure Name Priority Date/Time Associated Diagnosis Comments [facility] 07/10/2015 15:44 EDT documented in this encounter Results * [facility] (07/10/2015 15:44 EDT) Anatomical Region Laterality Modality Other 07/10/2015 15:4 4 EDT 07/10/2015 16:07 EDT Narrative 07/10/2015 16:07 EDT Indication Screening. History ======= General History Height 163 cm Height (ft) ?5 ft Height (in) ?4 in Previous Outcomes ?3 Para ?? 0 Abortions (A) ??2 Maternal Assessment Weight 51 kg Weight (lb) ?113 lb Height 163 cm Height (ft) ?5 ft Height (in) ?4 in BMI ?19.40 kg/m? Screening Tests Wants to know gender: ??yes Number of fetuses: 1. Dating ======= Method of dating: ??based on the LMP LMP on: ?02/20/2015 GA by LMP ??20 w + 0 d NEYDA by LMP : ? 11/27/2015 Ultrasound examination on: 07/10/2015 GA by U/S based upon: ??AC, BPD, Femur, HC GA by U/S ??20 w + 3 d NEYDA by U/S: ?11/24/2015 Assigned: ??Dating performed on 07/10/2015 Based on the LMP Assigned GA ?20 w + 0 d Assigned NEYDA: ??11/27/2015 General Evaluation Cardiac activity: present. FHR 148 bpm. movements: visualized. Presentation: breech. Placenta: anterior. Umbilical cord: Cord vessels: 3 vessel cord. Cord insertion: placental insertion: normal. Amniotic fluid: Amount of AF: normal. Biometry Biometry BPD ?47.9 mm 70% 20w 3d Hadlock OFD ?62.5 mm 76% 20w 1d Nicolaides HC 177.5 mm ?53% 20w 2d Hadlock AC 158.6 mm ?76% 21w 0d Hadlock Femur ??31.9 mm 39% 19w 6d Hadlock Cerebellum tr ??22.0 mm 87% 21w 0d Nicolaides CM 5.4 mm ??63% Nicolaides Nuchal fold ?3.94 mm Humerus ?32.2 mm 77% 20w 5d Bustamante EFW ?356 g Calculated by: Hadlock ([id number]) EFW (lb) ?? 0 lb EFW (oz) ?? 13 oz Cephalic index 0.77 ?26% Chitty HC / AC ?1.12 FL / BPD ?? 0.67 ?20% Hadlock FL / HC ?0.18 ?25% Hadlock FL / AC ?0.20 ?10% Hadlock FHR ?148 bpm Head / Face / Neck Manager Of Housekeeping 5.6 mm Anatomy Head / Brain Head: ??normal Head: ??Shape and size Brain: normal Brain: Cerebellum, choroid plexus, cisterna magna, lateral cerebral ventricles, midline falx and cavum septi pellucidi Face / Neck / Spine Face: ??normal Face: ??Upper lip Neck: ??normal Neck: ??No neck masses seen Spine: normal Spine: Cervical, thoracic, lumbar and sacral spine and overlying soft tissue Thorax / Heart / Great Vessels Thorax: ?normal Thorax: ?No thoracic abnormalities detected Situs: normal 4-chamber view: ?normal LVOT: ??normal RVOT: ??normal Abdomen Abdom. wall: ?? normal Abdom. wall: ?? Integrity of abdominal wall and cord insertion GI tract: ??normal GI tract: ??Normal echogenicity Stomach: ?? normal Stomach: ?? Presence, size and situs Urinary Tract / Genitals Rt kidney: normal Lt kidney: normal Bladder: ?? normal Bladder: ?? Size and location Gender: ?male Wants to know gender: ??yes Genitals: ??normal Genitals: ??Normal appearing genitalia Extremities / Bony Structures Upper extrem.: normal Upper extrem.: Both upper extremities are seen and appear normal Lower extrem.: normal Lower extrem.: Both lower extremities are seen and appear normal Maternal Structures Uterus / Cervix Uterus: ?appears normal Cervix: ?appears normal Ovaries / Tubes / Adnexa Rt ovary: ??Appears normal Rt ovary D1 ?2.0 cm Rt ovary D2 ?2.2 cm Rt ovary D3 ?1.0 cm Rt ovary mean ??1.7 cm Rt ovary Vol. ??2.3 cm? Lt ovary: ??appears normal Lt ovary D1 ?1.8 cm Lt ovary D2 ?2.2 cm Lt ovary D3 ?1.0 cm Lt ovary mean ??1.7 cm Lt ovary Vol. ??2.1 cm? Method ======== Voluson E10, Transabdominal ultrasound examination. Sufficient. Impression [id number] Obstetrical ultrasound with and maternal evaluation This is a panchal gestation. Biometry is consistent with menstrual dating. Anatomy appears normal as noted above; however, ultrasound cannot detect all anomalies. There is trunk and extremity movement noted. The amniotic fluid volume appears normal. Follow-up Follow-up as clinically indicated. Procedure Note Destinee Martinez MD - 07/10/2015 Indication Screening. History ======= General History Height 163 cm Height (ft) 5 ft Height (in) 4 in Previous Outcomes 3 Para 0 Abortions (A) 2 Maternal Assessment Weight 51 kg Weight (lb) 113 lb Height 163 cm Height (ft) 5 ft Height (in) 4 in BMI 19.40 kg/m? Screening Tests Wants to know gender: yes Number of fetuses: 1. Dating ======= Method of dating: based on the LMP LMP on: 02/20/2015 GA by LMP 20 w + 0 d NEYDA by LMP : 11/27/2015 Ultrasound examination on: 07/10/2015 GA by U/S based upon: AC, BPD, Femur, HC GA by U/S 20 w + 3 d NEYDA by U/S: 11/24/2015 Assigned: Dating performed on 07/10/2015 Based on the LMP Assigned GA 20 w + 0 d Assigned NEYDA: 11/27/2015 General Evaluation Cardiac activity: present. FHR 148 bpm. movements: visualized. Presentation: breech. Placenta: anterior. Umbilical cord: Cord vessels: 3 vessel cord. Cord insertion: placental insertion: normal. Amniotic fluid: Amount of AF: normal. Biometry Biometry BPD 47.9 mm 70% 20w 3d Hadlock OFD 62.5 mm 76% 20w 1d Nicolaides HC 177.5 mm 53% 20w 2d Hadlock AC 158.6 mm 76% 21w 0d Hadlock Femur 31.9 mm 39% 19w 6d Hadlock Cerebellum tr 22.0 mm 87% 21w 0d Nicolaides CM 5.4 mm 63% Nicolaides Nuchal fold 3.94 mm Humerus 32.2 mm 77% 20w 5d Bustamante EFW 356 g Calculated by: Hadlock ([id number]) EFW (lb) 0 lb EFW (oz) 13 oz Cephalic index 0.77 26% Chitty HC / AC 1.12 FL / BPD 0.67 20% Hadlock FL / HC 0.18 25% Hadlock FL / AC 0.20 10% Hadlock FHR 148 bpm Head / Face / Neck Manager Of Housekeeping 5.6 mm Anatomy Head / Brain Head: normal Head: Shape and size Brain: normal Brain: Cerebellum, choroid plexus, cisterna magna, lateral cerebral ventricles, midline falx and cavum septi pellucidi Face / Neck / Spine Face: normal Face: Upper lip Neck: normal Neck: No neck masses seen Spine: normal Spine: Cervical, thoracic, lumbar and sacral spine and overlying soft tissue Thorax / Heart / Great Vessels Thorax: normal Thorax: No thoracic abnormalities detected Situs: normal 4-chamber view: normal LVOT: normal RVOT: normal Abdomen Abdom. wall: normal Abdom. wall: Integrity of abdominal wall and cord insertion GI tract: normal GI tract: Normal echogenicity Stomach: normal Stomach: Presence, size and situs Urinary Tract / Genitals Rt kidney: normal Lt kidney: normal Bladder: normal Bladder: Size and location Gender: male Wants to know gender: yes Genitals: normal Genitals: Normal appearing genitalia Extremities / Bony Structures Upper extrem.: normal Upper extrem.: Both upper extremities are seen and appear normal Lower extrem.: normal Lower extrem.: Both lower extremities are seen and appear normal Maternal Structures Uterus / Cervix Uterus: appears normal Cervix: appears normal Ovaries / Tubes / Adnexa Rt ovary: Appears normal Rt ovary D1 2.0 cm Rt ovary D2 2.2 cm Rt ovary D3 1.0 cm Rt ovary mean 1.7 cm Rt ovary Vol. 2.3 cm? Lt ovary: appears normal Lt ovary D1 1.8 cm Lt ovary D2 2.2 cm Lt ovary D3 1.0 cm Lt ovary mean 1.7 cm Lt ovary Vol. 2.1 cm? Method ======== Voluson E10, Transabdominal ultrasound examination. Sufficient. Impression [id number] Obstetrical ultrasound with and maternal evaluation This is a panchal gestation. Biometry is consistent with menstrual dating. Anatomy appears normal as noted above; however, ultrasound cannot detect all anomalies. There is trunk and extremity movement noted. The amniotic fluid volume appears normal. Follow-up Follow-up as clinically indicated. us Joe Chakraborty MD [facility] ORDERABLES Milena l Result documented in this encounter Visit Diagnoses Not on filedocumented in this encounter Care Teams Teacher Of The Deaf Relationship Specialty Start Date End Date None, Provider PCP - General 06/25/14 08/06/23 documented as of this encounter
--- OUTSIDE RECORDS SUMMARY | 2024-11-10 02:19 | XMS_ITS | Continuity of Care Document ---
Author Organization [facility] Address [address] [place] [phone] Phone Care Team Providers Care Roofing Subcontractor Name Role Phone Robyn Julian Unavailable Unavailable Allergies, Adverse Reactions, Alerts Substance Reaction Status Criticality SUMATRIPTAN SUCCINATE Anaphylaxis Active No Inf ormation sumatriptan Anaphylaxis Active No Information Medications Medication Instructions Dosage Effective Dates (start - stop) Status Comments [place] 0.15 mg-30 mcg tablet take 1 tablet by oral route every day 1.00 tablet - Active Procedures Procedure Date Medication Management Inj Promethazine Hcl To 50 Mg 4 Offic/outpt E&m New Low-mod 20 14 Inj Ketorolac Tromethamine Per 14 THER/PROPH/DIAG INJ, SC/IM Advance Directives Directive Yes / No Effective Date File Name No Information Encounters Encounter Description Practice Location Reason(s) For Visit Diagnoses Date Provider Providers Copied on Encounter [address], [id number], tel:[phone] [facility] No Information 4 Camelia Carlson. [address] [place], [address], . tel:[phone], [id number], [place] tel:[phone] [facility] medication question (chief complaint) ADMINISTRTVE ENCOUNT NEC 4 No Information [address] [place], [place], [id number], tel:[phone] [facility] No Information 4 Camelia Carlson. [address], [place], [facility], . tel:[phone] Offic/outpt E&m New Low-mod [address], [id number], tel:[phone] Acute Care Pod new patient visit (chief complaint)h eadache (chief complaint) OTHR MIGRNE WO NTRC MGRN 4 Camelia Carlson. [address], [place], [facility], . tel:[phone] Family History Family Member Type Diagnosis Age At Onset No Information Immunizations Vaccine Date Status Comments Tdap administered Source: New Imm unization Record Payers Payer name Insurance type Covered republican ID Ismael arciniega(s) Mikaelanmolsharon [id number] Social History Type Description Quantity Date Captured Comments Sex Female Smoking Status No Information Sexual Orientation Choose not to disclose Gender Identity Choose not to disclose 019 Chief Complaint And Reason For Visit No Information Reason For Referral Reason For Referral No Information Plan Of Treatment Date Type Action Status Goal Influenza vaccine. Due on Oc due Goal HPV (1st). Due on 4 due Goal H&P. Due on due Goal H&P. Due on due Goal Influenza vaccine. Due on due Goal HPV (1st). Due on 4 due History Of Present Illness Encounter Date Complaint History Of Prese nt Illness No Information Functional Status Date Functional Assessmen t No Information Instructions Date Instruction Additional Infor mation No Information Assessments Type Assessment Date No Information Patient Care Teams Name Effective Dates (start - stop) Status Members No Information
--- OUTSIDE RECORDS SUMMARY | 2024-11-10 02:19 | XMS_ITS | Encounter Summary ---
Author Organization [facility] Address [address] [place] [address] Care Team Providers Care Supervising Floorperson Name Role Phone Unknown, Provider Primary Care Provider Unava ilable Encounter Details Date Type Department Care Team (Late st Contact Info) Description 06/04/2009 Orders Only [facility] Laboratory Services - [facility] ([facility]) [address] [place] [address] Tricia Carpio NP [address] [place] [phone] Social History Tobacco Use Types Packs/Day Years [...] and Reconstructive Surgery - Medical Office Building [facility] [address] [place] [id number] Julia Terrell PA-C [address] [facility] Medical Office Building, [address] [place] [id number] 11/25/2024 8:00 EST Rehab Therapy Visit [facility] Rehabilitation Therapy - Medical Office Building [address] [place] [address] Cira Jackson, DPT [address] [place] [address], [facility], [address] [place] [phone] 12/02/2024 8:00 EST Rehab Therapy Visit [facility] Rehabilitation Therapy - Medical Office Building [address] [place] [address] Cira Jackson, KEMALT [address] [place] [address], [facility], [address] [place] [phone] 12/09/2024 8:00 EST Rehab Therapy Visit [facility] Rehabilitation Therapy - Medical Office Building [address] [place] [address] Cira Jackson, KEMALT [address] [place] [address], [facility], [address] [place] [phone] 12/16/2024 9:00 EST Rehab Therapy Visit [facility] Rehabilitation Therapy - Medical Office Building [address] [place] [address] Cira Jackson, DPT [address] [place] [address], [facility], [address] [place] [phone] 12/23/2024 9:00 EST Rehab Therapy Visit [facility] Rehabilitation Therapy - Medical Office Building [address] [place] [address] Cira Jackson, DPT [address] [place] [address], [facility], [address] [place] [phone] documented as of this encounter Procedures Procedure Name Priority Date/Time Associated Diagnosis Comments CYTOPATHOLOGY Routine 06/04/2009 0:00 EDT documented in this encounter Results * CYTOPATHOLOGY (06/04/2009 0:00 EDT) Pathology Report: CYTOPATHOLOGY REPORT ? Reports generated via electronic interface contain original data; ? however they are lacking the format of the original report. ? Caution should be taken when reading/interpreti ng unformatted reports. ? Name: ? YE MEYERS ? Accession #: ? [id number] ? : ? 1990 (Age: 18) ??F ?Collect Date: ? 06/04/2009 ? Location: ? [facility] ? Receive Date: ? 06/08/2009 ? Provider: ?TRICIA CARPIO PLATFORM MILL SUPERVISOR ? Copy to: ? Specimen/Source: ?Pap Test, Cervix/Endocervix, ThinPrep Imaging System ? with manual evaluation ? Last Menstrual Period: ? 7/30/09 ? Hormonal/Contracep tive Status: ? Yes: Lutera ? Other: ? HPVA - HPV testing requested if ASC-US on the current ThinPrep Pap test. ? SPECIMEN ADEQUACY ? Satisfactory for Evaluation ? - transformation zone component present ? - scant squamous epithelial component secondary to excessive blood ? GENERAL CATEGORIZATION ? Negative for Intraepithelial Lesion or Malignancy ? Document reviewed and electronically signed by: ? Kaylene Cox, CT(ASCP) ? Report Date: ??06/12/2009 16:22 ? End of Report ? LEXI PAOLMINO 06/04/2009 06/08/2009 us Tricia Carpio PLATFORM MILL SUPERVISOR PATHOLOGY ORDERABLES Final Res ult [facility] [address] [place] [address] documented in this encounter Visit Diagnoses Not on filedocumented in this encounter Care Teams Supervising Floorperson Relationship Specialty Start Date End Date Unknown, Provider, PCP - General 06/08/09 06/24/14 documented as of this encounter
== END 2024-11-10 02:08 | disposition home or self-care (01) ==
LOC: ER 11-10 02:09
PROVIDERS: Emergency Provider Student in an Organized Health Care Education/Training Program; PCP Family Medicine
DX: R07.81 Pleurodynia (principal); R05.9 Cough, unspecified
CPT/HCPCS: 96372; 99284; 71046; 71100; 99283; J1885